=== PATIENT | male | born 1955 | race Caucasian/White ===

== ENCOUNTER 2017-04-28 22:45 | Inpatient (IN) | payer OTHER ==
[2017-04-28] MEDS ORDERED: SODIUM CHLORIDE 0.9% 1,000 ML IV ONE (23:40)
[2017-04-28] MEDS ORDERED: RX INFO: IV CONTRAST WAS GIVEN 1 EACH MISC MISCELLANE PRN (23:49)
--- NOTE | 2017-04-28 23:53 | ED ---
Fall HPI - General Chief Complaint: Fall Stated Complaint: KRISHNA Time Seen by Provider: 04/28/17 23:11 Source: patient, EMS Mode of arrival: EMS - History of Present Illness Initial Comments: This patient is a 61-year-old man who presents to be evaluated for pain along the right costal margin. The patient states that it started after he had a fall at home on Thursday night. He states that he fell from his porch probably 3 or 4 feet. He states that he landed on his right chest wall. The pain was not tremendous at that time but then worsened over the interval. He has been taking naproxen without much relief. He rates the pain as constant, moderate, but severe with palpation or with movement. He states that he is becoming short of breath now and he also has a bit of a cough with some yellow sputum. Patient denies hemoptysis. MD Complaint: fall -: days(s) Fall From: other When Fall Occurred: # days [employer] [address] Fall Occurred: home Loss of Consciousness: none Prolonged Down Time?: no Symptoms Prior to Fall: none Location: chest, abdomen - Related Data Home Medications Medication Instructions Recorded Confirmed ALPRAZolam [Xanax] 1 mg PO BID 05/13/16 04/29/17 Fluticasone/Salmeterol [Advair 1 puff INHALATION RT-BID 05/13/16 04/29/17 500-50 Diskus] Methadone [Dolophine] 30 mg PO Q12HR 05/13/16 04/29/17 Tiotropium [place] [Spiriva] 1 cap INHALATION RT-DAILY 05/13/16 04/29/17 Previous Rx's Medication Instructions Recorded Albuterol Inhaler [Ventolin Hfa 1 - 2 puff INHALATION Q6HR PRN #1 05/18/16 Inhaler] inhaler Allergies Allergy/AdvReac Type Severity Reaction Status Date / Time No Known Allergies Allergy Verified 04/28/17 23:12 Review of Systems ROS Statement: Those systems with pertinent positive or pertinent negative responses have been documented in the HPI. ROS Other: All systems not noted in ROS Statement are negative. Constitutional: Denies: fever, chills Respiratory: Reports: as per HPI, cough, dyspnea, wheezes. Denies: hemoptysis, stridor Cardiovascular: Reports: as per HPI, chest pain. Denies: palpitations, orthopnea, edema, syncope Gastrointestinal: Reports: as per HPI, abdominal pain. Denies: nausea, vomiting , diarrhea, constipation Genitourinary: Denies: dysuria, hematuria Musculoskeletal: Denies: back pain Skin: Denies: rash Neurological: Denies: headache, weakness, numbness Hematological/Lymphatic: Denies: easy bleeding Past Medical History Past Medical History: Asthma, COPD, Liver Disease Additional Past Medical History / Comment(s): pain disorder, cirrhosis, History of Any Multi-Drug Resistant Organisms: None Reported Past Surgical History: Orthopedic Surgery Additional Past Surgical History / Comment(s): neck fracture Past Anesthesia/Blood Transfusion Reactions: No Reported Reaction Past Psychological History: Anxiety Smoking Status: Former smoker Past Alcohol Use History: Daily Past Drug Use History: None Reported - Past Family History Father Family Medical History: Congestive Heart Failure (CHF), Hypertension Mother Family Medical History: Cancer, Hypertension Additional Family Medical History / Comment(s): Melanoma on nose. General Exam Limitations: no limitations General appearance: alert, in distress Head exam: Present: atraumatic, normocephalic Eye exam: Present: normal appearance. Absent: scleral icterus, conjunctival injection ENT exam: Present: normal oropharynx Neck exam: Present: normal inspection, full ROM Respiratory exam: Present: respiratory distress, rhonchi, chest wall tenderness (Right-sided chest tenderness in the mid and anterior axillary lines over the lower ribs. No obvious deformity.). Absent: wheezes, rales, stridor, accessory muscle use, decreased breath sounds, prolonged expiratory Cardiovascular Exam: Present: normal rhythm, tachycardia, normal heart sounds. Absent: systolic murmur, diastolic murmur, rubs, gallop GI/Abdominal exam: Present: soft, tenderness (There is right upper quadrant tenderness), guarding. Absent: distended, rebound, rigid, mass, pulsatile mass , hernia Extremities exam: Present: normal inspection, normal capillary refill. Absent: pedal edema, calf tenderness Back exam: Present: normal inspection. Absent: CVA tenderness (R), CVA tenderness (L), paraspinal tenderness, vertebral tenderness Neurological exam: Present: alert Skin exam: Present: warm, dry, intact, normal color. Absent: rash, cyanosis, diaphoretic, erythema, petechiae, pallor, mottled Course Vital Signs 04/28/17 04/29/17 04/29/17 22:47 00:00 00:33 Temperature 99.2 F 99.0 F Pulse Rate 115 H 108 H 99 Pulse Rate [ Pulse Oximetery ] Respiratory 18 22 Rate Blood Pressure 161/84 117/75 Blood Pressure [Left Arm] O2 Sat by Pulse 83 L 92 L Oximetry 04/29/17 04/29/17 04/29/17 00:48 00:51 01:26 Temperature Pulse Rate 98 99 100 Pulse Rate [ Pulse Oximetery ] Respiratory 20 20 Rate Blood Pressure 97/55 98/57 Blood Pressure [Left Arm] O2 Sat by Pulse 97 95 Oximetry 04/29/17 04/29/17 04/29/17 01:54 02:44 03:59 Temperature Pulse Rate 104 H 102 H 98 Pulse Rate [ Pulse Oximetery ] Respiratory 20 20 18 Rate Blood Pressure 135/68 103/57 114/70 Blood Pressure [Left Arm] O2 Sat by Pulse 96 95 96 Oximetry 04/29/17 04/29/17 04/29/17 05:23 05:32 05:42 Temperature 97.5 F L Pulse Rate 95 95 Pulse Rate [ 100 Pulse Oximetery ] Respiratory 18 16 18 Rate Blood Pressure 121/78 124/77 Blood Pressure 130/91 [Left Arm] O2 Sat by Pulse 97 93 L 96 Oximetry Medical Decision Making - Medical Decision Making This patient is 61-year-old man with history of COPD who presents over 24 hours after he had a fall and appears to have sustained multiple rib fractures with a small pneumothorax. Given the traumatic mechanism, patient initially admitted to surgery on-call and also to have pulmonology consultation for pneumothorax. - Lab Data Result diagrams: 04/28/17 23:25 04/28/17 23:25 Lab Results 04/28/17 04/28/17 04/28/17 Range/Units 23:25 23:25 23:25 WBC 6.8 (3.8-10.6) k/uL RBC 4.57 (4.30-5.90) m/uL Hgb 17.1 (13.0-17.5) gm/dL Hct 50.4 (39.0-53.0) % MCV 110.1 H (80.0-100.0) fL MCH 37.5 H (25.0-35.0) pg MCHC 34.0 (31.0-37.0) g/dL RDW 16.7 H (11.5-15.5) % Plt Count 177 (150-450) k/uL Neutrophils % 39 % Lymphocytes % 42 % Monocytes % 9 % Eosinophils % 4 % Basophils % 1 % Neutrophils # 2.7 (1.3-7.7) k/uL Lymphocytes # 2.9 (1.0-4.8) k/uL Monocytes # 0.6 (0-1.0) k/uL Eosinophils # 0.3 (0-0.7) k/uL Basophils # 0.1 (0-0.2) k/uL Manual Slide Review Performed Anisocytosis Slight Macrocytosis Marked PT 11.2 (9.0-12.0) sec INR 1.1 (<1.2) APTT 23.5 (22.0-30.0) sec Sodium 139 (137-145) mmol/L Potassium 4.3 (3.5-5.1) mmol/L Chloride 103 (98-107) mmol/L Carbon Dioxide 26 (22-30) mmol/L Anion Gap 10 mmol/L BUN 10 (9-20) mg/dL Creatinine 1.00 (0.66-1.25) mg/dL Est GFR (MDRD) Af Amer >60 (>60 ml/min/1.73 sqM) Est GFR (MDRD) Non-Af >60 (>60 ml/min/1.73 sqM) Glucose 105 H (74-99) mg/dL Lactic Ac Sepsis Rflx Plasma Lactic Acid Ryan (0.7-2.0) mmol/L Calcium 9.3 (8.4-10.2) mg/dL Total Bilirubin 0.7 (0.2-1.3) mg/dL AST 67 H (17-59) U/L ALT 77 H (21-72) U/L Alkaline Phosphatase 56 (38-126) U/L Total Protein 6.6 (6.3-8.2) g/dL Albumin 3.7 (3.5-5.0) g/dL Urine Color Urine Appearance (Clear) Urine pH (5.0-8.0) Ur Specific [place] (1.001-1.035) Urine Protein (Negative) Urine Glucose (UA) (Negative) Urine Ketones (Negative) Urine Blood (Negative) Urine Nitrite (Negative) Urine Bilirubin (Negative) Urine Urobilinogen (<2.0) mg/dL Ur Leukocyte Esterase (Negative) Serum Alcohol mg/dL 04/28/17 04/29/17 04/29/17 Range/Units 23:52 00:05 00:27 WBC (3.8-10.6) k/uL RBC (4.30-5.90) m/uL Hgb (13.0-17.5) gm/dL Hct (39.0-53.0) % MCV (80.0-100.0) fL MCH (25.0-35.0) pg MCHC (31.0-37.0) g/dL RDW (11.5-15.5) % Plt Count (150-450) k/uL Neutrophils % % Lymphocytes % % Monocytes % % Eosinophils % % Basophils % % Neutrophils # (1.3-7.7) k/uL Lymphocytes # (1.0-4.8) k/uL Monocytes # (0-1.0) k/uL Eosinophils # (0-0.7) k/uL Basophils # (0-0.2) k/uL Manual Slide Review Anisocytosis Macrocytosis PT (9.0-12.0) sec INR (<1.2) APTT (22.0-30.0) sec Sodium (137-145) mmol/L Potassium (3.5-5.1) mmol/L Chloride (98-107) mmol/L Carbon Dioxide (22-30) mmol/L Anion Gap mmol/L BUN (9-20) mg/dL Creatinine (0.66-1.25) mg/dL Est GFR (MDRD) Af Amer (>60 ml/min/1.73 sqM) Est GFR (MDRD) Non-Af (>60 ml/min/1.73 sqM) Glucose (74-99) mg/dL Lactic Ac Sepsis Rflx Y Plasma Lactic Acid Ryan 2.1 H* (0.7-2.0) mmol/L Calcium (8.4-10.2) mg/dL Total Bilirubin (0.2-1.3) mg/dL AST (17-59) U/L ALT (21-72) U/L Alkaline Phosphatase (38-126) U/L Total Protein (6.3-8.2) g/dL Albumin (3.5-5.0) g/dL Urine Color Urine Appearance (Clear) Urine pH (5.0-8.0) Ur Specific [place] (1.001-1.035) Urine Protein (Negative) Urine Glucose (UA) (Negative) Urine Ketones (Negative) Urine Blood (Negative) Urine Nitrite (Negative) Urine Bilirubin (Negative) Urine Urobilinogen (<2.0) mg/dL Ur Leukocyte Esterase (Negative) Serum Alcohol <10 mg/dL 04/29/17 04/29/17 Range/Units 02:40 04:25 WBC (3.8-10.6) k/uL RBC (4.30-5.90) m/uL Hgb (13.0-17.5) gm/dL Hct (39.0-53.0) % MCV (80.0-100.0) fL MCH (25.0-35.0) pg MCHC (31.0-37.0) g/dL RDW (11.5-15.5) % Plt Count (150-450) k/uL Neutrophils % % Lymphocytes % % Monocytes % % Eosinophils % % Basophils % % Neutrophils # (1.3-7.7) k/uL Lymphocytes # (1.0-4.8) k/uL Monocytes # (0-1.0) k/uL Eosinophils # (0-0.7) k/uL Basophils # (0-0.2) k/uL Manual Slide Review Anisocytosis Macrocytosis PT (9.0-12.0) sec INR (<1.2) APTT (22.0-30.0) sec Sodium (137-145) mmol/L Potassium (3.5-5.1) mmol/L Chloride (98-107) mmol/L Carbon Dioxide (22-30) mmol/L Anion Gap mmol/L BUN (9-20) mg/dL Creatinine (0.66-1.25) mg/dL Est GFR (MDRD) Af Amer (>60 ml/min/1.73 sqM) Est GFR (MDRD) Non-Af (>60 ml/min/1.73 sqM) Glucose (74-99) mg/dL Lactic Ac Sepsis Rflx Plasma Lactic Acid Ryan 2.1 H* (0.7-2.0) mmol/L Calcium (8.4-10.2) mg/dL Total Bilirubin (0.2-1.3) mg/dL AST (17-59) U/L ALT (21-72) U/L Alkaline Phosphatase (38-126) U/L Total Protein (6.3-8.2) g/dL Albumin (3.5-5.0) g/dL Urine Color Yellow Urine Appearance Clear (Clear) Urine pH 6.0 (5.0-8.0) Ur Specific [place] 1.021 (1.001-1.035) Urine Protein Trace H (Negative) Urine Glucose (UA) Negative (Negative) Urine Ketones Negative (Negative) Urine Blood Negative (Negative) Urine Nitrite Negative (Negative) Urine Bilirubin Negative (Negative) Urine Urobilinogen <2.0 (<2.0) mg/dL Ur Leukocyte Esterase Negative (Negative) Serum Alcohol mg/dL - EKG Data -: EKG Interpreted by Me EKG shows normal: sinus rhythm (With occasional PVCs), axis (Normal), intervals (Normal), QRS complexes (Normal), ST-T waves (There are lateral T inversions, leads 1 and aVL) Rate: tachycardia (Rate approximately 108 bpm) Disposition Clinical Impression: Fall, Ribs, multiple fractures, Pneumothorax Disposition: ADMITTED IP TO THIS [facility] Condition: Fair
[2017-04-29] MEDS ORDERED: IPRATROPIUM-ALBUTEROL 3 ML NEB INHALATION STA (00:08)
[2017-04-29] MEDS ORDERED: ALBUTEROL NEBULIZED 2.5 MG/3 ML INHALATION STA (00:08)
[2017-04-29 00:13] LABS: Anisocytosis Slight; Aty Lym Flag Slight; Basophils # (A) 0.1 k/uL (0-0.2); Basophils % (A) 1 %; CH 36.9; CHCM 33.8; Eosinophils # (A) 0.3 k/uL (0-0.7); Eosinophils % (A) 4 %; HCT 50.4 % (39.0-53.0); HDW 2.63; HGB 17.1 gm/dL (13.0-17.5); INR 1.1 (<1.2); Luc # (Auto) 0.34; Luc % (Auto) 5; Lymphocytes # (A) 2.9 k/uL (1.0-4.8); Lymphocytes % (A) 42 %; MCH 37.5 pg (25.0-35.0); MCV 110.1 fL (80.0-100.0); Macrocytosis Marked; Mean Platelet Volume 7.3; Monocytes # (A) 0.6 k/uL (0-1.0); Monocytes % (A) 9 %; Neutrophils # (A) 2.7 k/uL (1.3-7.7); Neutrophils % (A) 39 %; Partial Thromboplastin Time 23.5 sec (22.0-30.0); Prothrombin Time 11.2 sec (9.0-12.0); RBC 4.57 m/uL (4.30-5.90); RDW 16.7 % (11.5-15.5); WBC 6.8 k/uL (3.8-10.6); WBC (Perox) 6.26
[2017-04-29 00:20] LABS: ALT 77 U/L (21-72); AST 67 U/L (17-59); Alkaline Phosphatase 56 U/L (38-126); Anion Gap 10 mmol/L; Blood Urea Nitrogen 10 mg/dL (9-20); Calcium 9.3 mg/dL (8.4-10.2); Carbon Dioxide 26 mmol/L (22-30); Chloride 103 mmol/L (98-107); Glucose 105 mg/dL (74-99); Non-African American GFR(MDRD) >60 (>60 ml/min/1.73 sqM); Potassium 4.3 mmol/L (3.5-5.1); Sodium 139 mmol/L (137-145); Total Bilirubin 0.7 mg/dL (0.2-1.3); Total Protein 6.6 g/dL (6.3-8.2)
[2017-04-29] MEDS ORDERED: SODIUM CHLORIDE 0.9% 500 ML IV STA (00:29)
[2017-04-29 00:50] LABS: Manual Review Performed
[2017-04-29 02:52] LABS: Appearance,Urine Clear (Clear); Bilirubin,Urine Negative (Negative); Glucose,Urine (UA) Negative (Negative); Ketones,Urine Negative (Negative); Leukocyte Esterase,Urine Negative (Negative); Nitrite,Urine Negative (Negative); Protein,Urine Trace (Negative); Specific Gravity,Urine 1.021 (1.001-1.035); UA Billing (MACRO vs. MICRO) CHEM; Urobilinogen,Urine <2.0 mg/dL (<2.0)
--- NOTE | 2017-04-29 02:56 | CT ---
EXAM: CT Chest With Intravenous Contrast CLINICAL HISTORY: Reason: trauma TECHNIQUE: Axial computed tomography images of the chest with intravenous contrast. CTDI is 13.4 mGy and DLP is 913.40 mGy-cm. This CT exam was performed using one or more of the following dose reduction techniques: automated exposure control, adjustment of the mA and/or kV according to patient size, and/or use of iterative reconstruction technique. COMPARISON: Chest x-ray 05/13/2016. FINDINGS: Lungs: Airspace opacities in the dependent lung bases consistent with atelectasis. Possible superimposed right basilar pulmonary contusion. Pleural space: Small right pneumothorax. Heart: Mild/moderate atherosclerotic vascular calcification seen. No cardiomegaly. No significant pericardial effusion. Bones/joints: Acute nondisplaced fractures right posterior seventh through ninth ribs. Old healed fractures right posterior 10th and 11th ribs. Soft tissues: Unremarkable. Vasculature: Unremarkable. No thoracic aortic aneurysm. Lymph nodes: Mildly prominent mediastinal and right hilar lymph nodes, of unknown significance, although likely reactive.. IMPRESSION: 1. Small right pneumothorax. 2. Acute nondisplaced fractures right posterior seventh through ninth ribs. Old healed fractures right posterior 10th and 11th ribs. 3. Airspace opacities in the dependent lung bases consistent with atelectasis. Possible superimposed right basilar pulmonary contusion. EXAM: CT Abdomen and Pelvis With Intravenous Contrast CLINICAL HISTORY: Reason: trauma TECHNIQUE: Axial computed tomography images of the abdomen and pelvis with intravenous contrast. CTDI is 14.4 mGy and DLP is 430.70 mGy-cm. This CT exam was performed using one or more of the following dose reduction techniques: automated exposure control, adjustment of the mA and/or kV according to patient size, and/or use of iterative reconstruction technique. COMPARISON: None. FINDINGS: Lower thorax: Abnormalities in the lower thorax. See chest CT report. ABDOMEN: Liver: Hepatic steatosis suggested.. No mass. Gallbladder and bile ducts: Unremarkable. No calcified stones. No ductal dilation. Pancreas: Unremarkable. No mass. No ductal dilation. Spleen: Unremarkable. No splenomegaly. Adrenals: Unremarkable. No mass. Kidneys and ureters: Symmetric mild perinephric fat stranding, likely chronic. No solid mass. No hydronephrosis. Stomach and bowel: Unremarkable. No obstruction. No mucosal thickening. Appendix: No findings to suggest acute appendicitis. PELVIS: Bladder: Unremarkable. No mass. Reproductive: Unremarkable as visualized. ABDOMEN and PELVIS: Intraperitoneal space: Unremarkable. No free air. No significant fluid collection. Bones/joints: AVN both femoral heads without subchondral collapse or significant DJD in the hips. Degenerative changes in the spine. No acute fractures. No dislocation. Soft tissues: Unremarkable. Vasculature: Mild/moderate atherosclerotic vascular calcifications involving the intra-abdominal aorta and its proximal branches. No abdominal aortic aneurysm. Lymph nodes: Mildly prominent preaortic, retrocaval, peripancreatic, and ceasar hepatic lymph nodes, measuring up to 1.6 cm in the portal caval region, of unknown significance. IMPRESSION: No acute findings. Other findings, as above. [employer] 04/29/17 03:11 Call Doctor Regarding Pneumothorax, called Dr. Soto on 04/29 03:10 (-04:00)
[2017-04-29] MEDS ORDERED: SODIUM CHLORIDE 0.9% 2,000 ML IV ONE (04:13)
[2017-04-29] MEDS ORDERED: ONDANSETRON 4 MG/2 ML VIAL IVP PRN (04:37)
[2017-04-29] MEDS ORDERED: ACETAMINOPHEN TAB 325 MG TAB PO PRN (04:37)
[2017-04-29] MEDS: MORPHINE SULFATE 4 MG/ML SYRINGE IV PRN ×3 (06:23→16:08)
[2017-04-29] MEDS: ALBUTEROL NEBULIZED 2.5 MG/3 ML INHALATION SCH ×3 (07:51→20:42)
[2017-04-29] MEDS: TIOTROPIUM 18 MCG/PUFF INHALER INHALATION SCH (07:52)
[2017-04-29] MEDS: ALPRAZolam 0.5 MG TAB PO SCH ×2 (08:05→22:17)
[2017-04-29] MEDS: METHADONE 10 MG TAB PO SCH ×2 (08:05→22:17)
[2017-04-29] MEDS: FAMOTIDINE 20 MG TAB PO SCH ×2 (08:05→22:17)
[2017-04-29] MEDS ORDERED: predniSONE 10 MG TAB PO SCH (09:00)
[2017-04-29] MEDS: SYMBICORT 160-4.5 MCG INHALER INHALATION SCH ×2 (11:42→20:42)
--- NOTE | 2017-04-29 11:51 | P.CNPUL ---
History of Present Illness Consult date: 04/29/17 Reason for consult: pneumothorax Chief complaint: Shortness of breath, pain History of present illness: This is a 61-year-old male who is being seen, evaluated and examined. This patient is well-known to our services. The patient came into the emergency room status post fall on 04/26/2017. Patient states he fell from his porch which was approximately 3-4 feet of a drop. He stated he was intoxicated with alcohol at the time. Patient stated that he landed on his right-sided chest. Patient denies and loss of consciousness or hitting his head. Patient initially did not have much pain but over the last 2 days the pain has increasingly gotten worse as well as he develop shortness of breath. The patient was taking naproxen at home without relief. Patient states that the pain is consistent moderate and with palpation it becomes more severe. Patient has developed increasing shortness of breath over the last few days as well as well as a productive cough with yellow sputum. She denies any hemoptysis. Patient is known to have history of COPD, patient states he does not use oxygen at home at this time however he has used it in the past.. Patient did undergo a CT of the chest abdomen and pelvis which revealed a small right pneumothorax, acute nondisplaced fractures right posterior seventh through ninth ribs. Some old healing fractures right posterior 10th rib 11th ribs, airspace opacity in the dependent lung bases consistent with atelectasis, possible superimposed right basilar pulmonary contusion. Upon examination the patient's resting up in bed on 2 L of supplemental oxygen. He states he continues to have rib pain with coughing. He is unable to bring up secretions due to pain. Patient states his current medications are effective for pain relief. He denies any fevers, chills , or hemoptysis, nausea, vomiting or diarrhea. Review of Systems 14 point review of systems was completed and is negative unless noted above in the HPI. Past Medical History Past Medical History: Asthma, COPD, Liver Disease Additional Past Medical History / Comment(s): pain disorder, cirrhosis, History of Any Multi-Drug Resistant Organisms: None Reported Past Surgical History: Orthopedic Surgery Additional Past Surgical History / Comment(s): neck fracture Past Anesthesia/Blood Transfusion Reactions: No Reported Reaction Past Psychological History: Anxiety Smoking Status: Former smoker Past Alcohol Use History: Daily Past Drug Use History: None Reported - Past Family History Father Family Medical History: Congestive Heart Failure (CHF), Hypertension Mother Family Medical History: Cancer, Hypertension Additional Family Medical History / Comment(s): Melanoma on nose. Medications and Allergies Home Medications Medication Instructions Recorded Confirmed Type ALPRAZolam [Xanax] 1 mg PO BID 05/13/16 04/29/17 History Methadone [Dolophine] 30 mg PO Q12HR 05/13/16 04/29/17 History Tiotropium [place] [Spiriva] 1 cap INHALATION RT-DAILY 05/13/16 04/29/17 History Albuterol Inhaler [Ventolin Hfa 1 - 2 puff INHALATION RT-Q6H PRN 04/29/17 History Inhaler] Ipratropium-Albuterol Nebulize 3 ml INHALATION RT-BID 04/29/17 04/29/17 History [Duoneb 0.5 mg-3 mg/3 ml Soln] Allergies Allergy/AdvReac Type Severity Reaction Status Date / Time No Known Allergies Allergy Verified 04/29/17 08:34 Physical Exam Vitals: Vital Signs Temp Pulse Pulse Resp BP BP Pulse Ox 04/29/17 08:07 96 04/29/17 08:00 98.8 F 90 21 150/90 94 L 04/29/17 07:52 92 04/29/17 05:42 97.5 F L 95 18 124/77 96 04/29/17 05:32 100 16 130/91 93 L 04/29/17 05:23 95 18 121/78 97 04/29/17 03:59 98 18 114/70 96 04/29/17 02:44 102 H 20 103/57 95 04/29/17 01:54 104 H 20 135/68 96 04/29/17 01:26 100 20 98/57 95 04/29/17 00:51 99 04/29/17 00:48 98 20 97/55 97 04/29/17 00:33 99 04/29/17 00:00 99.0 F 108 H 22 117/75 92 L 04/28/17 22:47 99.2 F 115 H 18 161/84 83 L Intake and Output 04/28/17 04/29/17 04/29/17 22:59 06:59 14:59 Other: Weight 88.451 kg 94.7 kg GENERAL EXAM: Alert, active, comfortable in no apparent distress. HEAD: Normocephalic. EYES: Normal reaction of pupils, equal size. NOSE: Clear with pink turbinates. THROAT: No erythema or exudates. NECK: No masses, no JVD. CHEST: No chest wall deformity. LUNGS: Patient noted to have scattered rhonchi and faint end expiratory wheezes. Patient also known to have chest wall tenderness on the right side. CVS: S1 and S2 normal with no audible mumurs, regular rhythm. ABDOMEN: No hepatosplenomegaly, normal bowel sounds, no guarding or rigidity. EXTREMITIES: No edema noted, pedal pulses palpable. SKIN: No rashes CENTRAL NERVOUS SYSTEM: No focal deficits, tone is normal in all 4 extremities. Results - Laboratory Findings CBC and BMP: 04/28/17 23:25 04/28/17 23:25 PT/INR, D-dimer PT 11.2 sec (9.0-12.0) 04/28/17 23:25 INR 1.1 (<1.2) 04/28/17 23:25 Abnormal lab findings: Abnormal Labs 04/28/17 04/28/17 04/29/17 23:25 23:25 00:05 MCV 110.1 H MCH 37.5 H RDW 16.7 H Glucose 105 H Plasma Lactic Acid Ryan 2.1 H* AST 67 H ALT 77 H Urine Protein 04/29/17 04/29/17 02:40 04:25 MCV MCH RDW Glucose Plasma Lactic Acid Ryan 2.1 H* AST ALT Urine Protein Trace H - Diagnostic Findings CT scan - chest: report reviewed, image reviewed Assessment and Plan Plan: Assessment Status post fall Small right sided pneumothorax Multiple right-sided rib fractures Acute on chronic hypoxic respiratory failure COPD Chronic persistent moderate asthma with a component of ALLERGIC asthma Nicotine dependence Plan Medications have been reviewed and will be continued as ordered. We will continue to monitor the pneumothorax. Daily chest xrays. Initiate and encourage incentive spirometer. Continue with pain management. Continue with pulmonary hygiene, coughing and deep breathing exercises, and supportive care. Supplemental oxygen to maintain oxygen saturations of 92% or better. Continue nebulizer treatments. GI and DVT prophylaxis. We will continue to monitor labs/ results and adjust treatment as necessary. Further recommendations pending. I performed an examination of the patient and discussed their management with the nurse practitioner. I have reviewed the nurse practitioner's note and agree with the documented findings and plan of care.
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
--- NOTE | 2017-04-29 17:41 | XR ---
EXAMINATION TYPE: XR chest 2V DATE OF EXAM: 04/29/2017 COMPARISON: 05/13/2016 HISTORY: Follow-up pneumothorax TECHNIQUE: Frontal and lateral views of the chest are obtained. FINDINGS: There is a poor respiration and linear density at the lung bases. I see no pneumothorax. T rachea is midline. Heart size is normal. There is no heart failure. IMPRESSION: There is bilateral basilar atelectasis that is worse than last exam. No sign of pneumoth orax.
[2017-04-30] MEDS: ALBUTEROL NEBULIZED 2.5 MG/3 ML INHALATION SCH ×5 (02:16→19:30)
[2017-04-30 05:51] LABS: Anisocytosis Slight; Basophils # (A) 0.1 k/uL (0-0.2); Basophils % (A) 1 %; CH 36.7; CHCM 31.6; Eosinophils # (A) 0.2 k/uL (0-0.7); Eosinophils % (A) 2 %; HCT 50.4 % (39.0-53.0); HDW 2.71; HGB 16.2 gm/dL (13.0-17.5); Luc # (Auto) 0.28; Luc % (Auto) 3; Lymphocytes # (A) 1.3 k/uL (1.0-4.8); Lymphocytes % (A) 14 %; MCH 37.6 pg (25.0-35.0); MCHC 32.1 g/dL (31.0-37.0); Macrocytosis Marked; Mean Platelet Volume 7.4; Monocytes # (A) 0.7 k/uL (0-1.0); Monocytes % (A) 8 %; Neutrophils # (A) 6.5 k/uL (1.3-7.7); Neutrophils % (A) 72 %; RDW 16.9 % (11.5-15.5); WBC 9.1 k/uL (3.8-10.6)
[2017-04-30 05:56] LABS: Glucose,Whole Blood 118 mg/dL (75-99)
[2017-04-30 05:56] LABS: ABG Base Excess -0.8 mmol/L; ABG HCO3 26 mmol/L (21-25); ABG PCO2 71 mmHg (35-45); ABG PO2 97 mmHg (83-108); ABG TCO2 28 mmol/L (19-24)
--- NOTE | 2017-04-30 06:01 | XR ---
EXAM: XR Chest, 1 View CLINICAL HISTORY: Reason: fluid TECHNIQUE: Frontal view of the chest. COMPARISON: Chest x-ray dated 05/13/2016 FINDINGS: Lungs: Patchy airspace opacities seen throughout both lungs, left greater than right, which may represent an inflammatory or infectious process versus pulmonary edema. Pleural space: Unremarkable. No pneumothorax. Heart: Mild enlargement of the cardiomediastinal silhouette. Mediastinum: See above. Bones/joints: Unremarkable. IMPRESSION: Patchy airspace opacities seen throughout both lungs, left greater than right which may represent an inflammatory or infectious process versus pulmonary edema.
[2017-04-30 06:11] LABS: MCV 117.2 fL (80.0-100.0)
[2017-04-30 06:20] LABS: Glucose,Whole Blood 118 mg/dL (75-99)
[2017-04-30 06:36] LABS: ALT 81 U/L (21-72); AST 60 U/L (17-59); Alkaline Phosphatase 65 U/L (38-126); Anion Gap 12 mmol/L; Blood Urea Nitrogen 10 mg/dL (9-20); Calcium 8.5 mg/dL (8.4-10.2); Carbon Dioxide 22 mmol/L (22-30); Chloride 101 mmol/L (98-107); Glucose 128 mg/dL (74-99); Magnesium 1.7 mg/dL (1.6-2.3); Non-African American GFR(MDRD) >60 (>60 ml/min/1.73 sqM); Phosphorous 6.5 mg/dL (2.5-4.5); Potassium 5.3 mmol/L (3.5-5.1); Sodium 135 mmol/L (137-145); Total Bilirubin 0.7 mg/dL (0.2-1.3); Total Protein 7.1 g/dL (6.3-8.2)
[2017-04-30] MEDS ORDERED: Magnesium Replacement Protocol 1 EACH MISC MISCELLANE PRN (07:18)
[2017-04-30] MEDS: SYMBICORT 160-4.5 MCG INHALER INHALATION SCH ×2 (07:59→19:31)
[2017-04-30] MEDS: TIOTROPIUM 18 MCG/PUFF INHALER INHALATION SCH (08:00)
[2017-04-30] MEDS: ALPRAZolam 0.5 MG TAB PO SCH (08:19)
[2017-04-30 08:21] LABS: ABG PH 7.17 (7.35-7.45)
--- NOTE | 2017-04-30 08:21 | P.PN ---
Subjective Patient earlier this morning was evidently chewing tobacco and apparently aspirated. Since that episode he has been very lethargic and with decreased respiratory effort. He was therefore transferred to the intensive care unit. A chest x-ray was performed which revealed patchy airspace opacities seen throughout both lungs left greater than the right which may represent an inflammatory or infectious process versus pulmonary edema. No pneumothorax was reported. The patient at this time is hemodynamically stable however with very shallow respirations. He is lethargic and confused. Of concern is the fact that the patient has a question of loss of consciousness at the time of his fall and we will therefore obtain a head CT to rule out an intracranial cause for his lethargy. However at this time it is felt that this is most likely related to a possible aspiration event. Patient lives alone with his dog, he has no family or friends at this time which have been identified to notify. Objective - Vital Signs Vital signs: Vital Signs Temp 99.0 F 04/30/17 04:00 Pulse 98 04/30/17 07:57 Resp 7 L 04/30/17 07:00 BP 114/74 04/30/17 07:00 Pulse Ox 92 L 04/30/17 07:00 Intake & Output 04/29/17 04/30/17 04/30/17 18:59 06:59 18:59 Intake Total 200 Output Total 200 750 Balance 0 -750 Intake: Oral 200 Output: Urine 200 750 Other: Voiding Method Indwelling Catheter # Voids 1 100 - Constitutional General appearance: Present: obese - Respiratory Details: Decreased breath sounds bilaterally Octavio I bilaterally Shallow respirations - Cardiovascular Rhythm: regular Heart sounds: normal: S1, S2 - Gastrointestinal Gastrointestinal Comment(s): No guarding or rebound General gastrointestinal: Present: soft - Psychiatric Psychiatric Comment(s): lethargic - Labs CBC & Chem 7: 04/30/17 05:40 04/30/17 05:40 Labs: Abnormal Lab Results - Last 24 Hours (Table) 04/30/17 04/30/17 04/30/17 Range/Units 05:30 05:40 05:40 MCV 117.2 H D (80.0-100.0) fL MCH 37.6 H (25.0-35.0) pg RDW 16.9 H (11.5-15.5) % ABG pH (7.35-7.45) ABG pCO2 (35-45) mmHg ABG HCO3 (21-25) mmol/L ABG Total CO2 (19-24) mmol/L Sodium 135 L (137-145) mmol/L Potassium 5.3 H (3.5-5.1) mmol/L Glucose 128 H (74-99) mg/dL POC Glucose (mg/dL) 118 H (75-99) mg/dL Phosphorus 6.5 H (2.5-4.5) mg/dL AST 60 H (17-59) U/L ALT 81 H (21-72) U/L 04/30/17 04/30/17 Range/Units 05:51 06:18 MCV (80.0-100.0) fL MCH (25.0-35.0) pg RDW (11.5-15.5) % ABG pH 7.20 L* (7.35-7.45) ABG pCO2 71 H* (35-45) mmHg ABG HCO3 26 H (21-25) mmol/L ABG Total CO2 28 H (19-24) mmol/L Sodium (137-145) mmol/L Potassium (3.5-5.1) mmol/L Glucose (74-99) mg/dL POC Glucose (mg/dL) 118 H (75-99) mg/dL Phosphorus (2.5-4.5) mg/dL AST (17-59) U/L ALT (21-72) U/L Microbiology - Last 24 Hours (Table) 04/29/17 00:45 Blood Culture - Preliminary Blood No Growth after 24 hours Assessment and Plan Plan: Impression/plan: 1. Small right-sided pneumothorax related to multiple right-sided rib fractures from recent fall 2. Acute and chronic hypoxic respiratory failure 3. COPD 4. Asthma 5. Prior smoker 6. Increased lethargy possibly related to of aspiration Plan: 1. Daily chest x-rays 2. Pulmonary hygiene 3. Incentive spirometry 4. Nebulizer treatments 6. Pain medication as needed 7. GI and DVT prophylaxis 8. Obtain head CT without intracranial cause for lethargy 9. Awaiting repeat arterial blood gases 10. Patient may require intubation
[2017-04-30 08:22] LABS: ABG Base Excess 0.1 mmol/L; ABG HCO3 28 mmol/L (21-25); ABG PCO2 80 mmHg (35-45); ABG PO2 88 mmHg (83-108); ABG TCO2 30 mmol/L (19-24)
[2017-04-30] MEDS ORDERED: RX INFO: IV CONTRAST WAS GIVEN 1 EACH MISC MISCELLANE PRN (08:22)
[2017-04-30] MEDS: PIPERACILLIN-TAZOBACTAM 3.375 GM in DEXTROSE/WATER 1 50ML.BAG IVPB SCH ×3 (08:26→23:33)
[2017-04-30] MEDS: FAMOTIDINE 20 MG/2 ML VIAL IV SCH ×2 (09:22→20:30)
--- NOTE | 2017-04-30 10:31 | P.PN ---
Subjective 04/29/17-This is a 61-year-old male who is being seen, evaluated and examined. This patient is well-known to our services. The patient came into the emergency room status post fall on 04/26/2017. Patient states he fell from his porch which was approximately 3-4 feet of a drop. He stated he was intoxicated with alcohol at the time. Patient stated that he landed on his right-sided chest. Patient denies and loss of consciousness or hitting his head. Patient initially did not have much pain but over the last 2 days the pain has increasingly gotten worse as well as he develop shortness of breath. The patient was taking naproxen at home without relief. Patient states that the pain is consistent moderate and with palpation it becomes more severe. Patient has developed increasing shortness of breath over the last few days as well as well as a productive cough with yellow sputum. She denies any hemoptysis. Patient is known to have history of COPD, patient states he does not use oxygen at home at this time however he has used it in the past.. Patient did undergo a CT of the chest abdomen and pelvis which revealed a small right pneumothorax, acute nondisplaced fractures right posterior seventh through ninth ribs. Some old healing fractures right posterior 10th rib 11th ribs, airspace opacity in the dependent lung bases consistent with atelectasis, possible superimposed right basilar pulmonary contusion. Upon examination the patient's resting up in bed on 2 L of supplemental oxygen. He states he continues to have rib pain with coughing. He is unable to bring up secretions due to pain. Patient states his current medications are effective for pain relief. He denies any fevers, chills, or hemoptysis, nausea, vomiting or diarrhea. 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 Patient's SpO2 was 86% on 4 L of supplemental oxygen. The patient's CBG was 118 patient was difficult to arouse. An 18 was called and stat ABGs were drawn and came back critical with a pH of 7.20 pCO2 of 71 and HCO3 26 and pO2 97% the patient was ultimately transferred over to the intensive care unit and put on BiPAP. A stat chest x-ray did show patchy airspace disease seen throughout both lungs, left greater than the right. Of note the patient also was suctioned and chewing tobacco was obtained the patient also vomited up a moderate amount of emesis, mixed with food articles as well as chewing tobacco. Apparently overnight the patient was found to be using chewing tobacco and it was removed from the patient's room and he was educated on the policy stating he could not have chewing tobacco in the hospital. Upon examination the patient is currently on BiPAP and is lethargic, his oxygen saturations have improved with the BiPAP, he does open his eyes spontaneously. The patient does not have any emergency contacts or family members that we are aware of to update we will put on social work to obtain a legal guardian for the patient. Objective - Vital Signs Vital signs: Vital Signs Temp 99.0 F 04/30/17 04:00 Pulse 98 04/30/17 07:57 Resp 7 L 04/30/17 07:00 BP 114/74 04/30/17 07:00 Pulse Ox 92 L 04/30/17 07:00 Intake & Output 04/29/17 04/30/17 04/30/17 18:59 06:59 18:59 Intake Total 200 Output Total 200 750 Balance 0 -750 Intake: Oral 200 Output: Urine 200 750 Other: Voiding Method Indwelling Catheter # Voids 1 100 - Exam GENERAL EXAM: Lethargic, on BiPAP for respiratory distress HEAD: Normocephalic. EYES: Normal reaction of pupils, equal size. NOSE: Clear with pink turbinates. THROAT: No erythema or exudates. NECK: No masses, no JVD. CHEST: No chest wall deformity. LUNGS: Patient noted to have coarse breath sounds with scattered rhonchi and faint end expiratory wheezes. Patient also known to have chest wall tenderness on the right side. Currently on BiPAP CVS: S1 and S2 normal with no audible mumurs, regular rhythm. ABDOMEN: No hepatosplenomegaly, normal bowel sounds, no guarding or rigidity. EXTREMITIES: No edema noted, pedal pulses palpable. CENTRAL NERVOUS SYSTEM: No focal deficits, tone is normal in all 4 extremities. - Labs CBC & Chem 7: 05/01/17 05:30 05/01/17 05:30 Labs: Abnormal Lab Results - Last 24 Hours (Table) 04/30/17 04/30/17 04/30/17 Range/Units 05:30 05:40 05:40 MCV 117.2 H D (80.0-100.0) fL MCH 37.6 H (25.0-35.0) pg RDW 16.9 H (11.5-15.5) % ABG pH (7.35-7.45) ABG pCO2 (35-45) mmHg ABG HCO3 (21-25) mmol/L ABG Total CO2 (19-24) mmol/L ABG O2 Saturation (94-97) % Sodium 135 L (137-145) mmol/L Potassium 5.3 H (3.5-5.1) mmol/L Glucose 128 H (74-99) mg/dL POC Glucose (mg/dL) 118 H (75-99) mg/dL Phosphorus 6.5 H (2.5-4.5) mg/dL AST 60 H (17-59) U/L ALT 81 H (21-72) U/L 04/30/17 04/30/17 04/30/17 Range/Units 05:51 06:18 08:11 MCV (80.0-100.0) fL MCH (25.0-35.0) pg RDW (11.5-15.5) % ABG pH 7.20 L* 7.17 L* (7.35-7.45) ABG pCO2 71 H* 80 H* (35-45) mmHg ABG HCO3 26 H 28 H (21-25) mmol/L ABG Total CO2 28 H 30 H (19-24) mmol/L ABG O2 Saturation 93.0 L (94-97) % Sodium (137-145) mmol/L Potassium (3.5-5.1) mmol/L Glucose (74-99) mg/dL POC Glucose (mg/dL) 118 H (75-99) mg/dL Phosphorus (2.5-4.5) mg/dL AST (17-59) U/L ALT (21-72) U/L Microbiology - Last 24 Hours (Table) 04/29/17 00:45 Blood Culture - Preliminary Blood No Growth after 24 hours Assessment and Plan Plan: Assessment Left lower lobe aspiration pneumonia likely related to chewing tobacco Increased lethargy Status post fall Small right sided pneumothorax Multiple right-sided rib fractures Acute on chronic hypoxic respiratory failure COPD Chronic persistent moderate asthma with a component of ALLERGIC asthma Nicotine dependence Plan Medications have been reviewed and will be continued as ordered. Continue the patient on BiPAP and we'll do repeat ABGs after 4 hours. This patient may require intubation if no improvement after 4 hours of BiPAP. Discontinue the patient's methadone, morphine and Xanax. He has been placed on IV Solu-Medrol 40 every 8 hours. IV fluids normal saline at 100 MLS per hour. We will continue to monitor the pneumothorax which seems to be improved however newly developed left lower lobe aspiration pneumonia is present. Daily chest xrays. We will obtain a CT of the brain once patient's respiratory status is stable. Initiate and encourage incentive spirometer. Continue with pulmonary hygiene, coughing and deep breathing exercises, and supportive care. Supplemental oxygen to maintain oxygen saturations of 92% or better. Continue nebulizer treatments. GI and DVT prophylaxis. 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 We will continue to monitor labs/results and adjust treatment as necessary. Further recommendations pending. I performed an examination of the patient and discussed their management with the nurse practitioner. I have reviewed the nurse practitioner's note and agree with the documented findings and plan of care.
[2017-04-30] MEDS: SODIUM CHLORIDE 0.9% 1,000 ML IV SCH ×2 (10:45→20:30)
[2017-04-30] MEDS: MAGNESIUM SULFATE-D5W PMX 1 GM in DEXTROSE/WATER 1 100ML.BAG IVPB SCH ×2 (10:46→11:54)
[2017-04-30 12:04] LABS: Hemoglobin A1C 5.3 % (4.2-6.1)
[2017-04-30 12:07] LABS: Glucose,Whole Blood 99 mg/dL (75-99)
[2017-04-30] MEDS: INSULIN LISPRO (humaLOG) 300 UNIT/3 ML VIAL SQ SCH ×3 (12:08→20:30)
[2017-04-30 13:07] LABS: ABG PH 7.23 (7.35-7.45)
[2017-04-30 13:08] LABS: ABG HCO3 28 mmol/L (21-25); ABG PCO2 70 mmHg (35-45); ABG PO2 60 mmHg (83-108)
[2017-04-30 13:09] LABS: ABG Oxygen Saturation 84.5 % (94-97); ABG TCO2 30 mmol/L (19-24)
--- NOTE | 2017-04-30 14:50 | P.CONS ---
History of Present Illness - Reason for Consult Consult date: 04/29/17 Medical management - Chief Complaint Status post fall - History of Present Illness Mr. Craig is a 61-year-old male with a known history of asthma/COPD EtOH abuse, chronic pain and liver disease came to the ER status post fall on 04/26/2017. Patient was intoxicated with all call and had a mechanical fall. Patient landed on the right side of his chest. Denied any headache or head injury or loss of consciousness. Patient has been increasing short of breath and pain with deep breathing. Patient came to the hospital. Patient has been having chronic cough with whitish to yellow sputum. No increasing in quantity of sputum or frequency. Patient had CT of the chest abdomen and pelvis was done in the year showed a small right pneumothorax, acute nondisplaced fractures right posterior seventh through ninth ribs. Patient also had right posterior 10th rib and 11th rib. An air space opacity in the dependent lung bases consistent with atelectasis and superimposed possible right basilar pulmonary contusion.. Currently patient is complaining of pain with coughing and deep breathing. No fever or chills. No nausea vomiting or abdominal Pain. Medicine service has been consulted for medical management of his chronic medical problems and pain management Review of Systems Constitutional: Patient denies any fever or chills . No generalized weakness or weight loss. Abdomen: Patient denied nausea vomiting and diarrhea and abdominal pain. Cardiovascular: Patient denies any chest pain or short of breath no palpitations. Respiratory: patient is complaining of shortness of breath and pain in the right ribs with deep breathing and cough. Neurologic: Patient denied any numbness or tingling headache. Musculoskeletal: Patient denies any complaints of joint swelling or deformity. Right rib cage pain Skin: No skin lesions Psychiatric: Negative Endocrine: No heat or cold intolerance. No recent weight gain. Genitourinary: No dysuria or hematuria. All other 14 point ROS negative except the above Past Medical History Past Medical History: Asthma, COPD, Liver Disease Additional Past Medical History / Comment(s): pain disorder, cirrhosis, History of Any Multi-Drug Resistant Organisms: None Reported Past Surgical History: Orthopedic Surgery Additional Past Surgical History / Comment(s): neck fracture Past Anesthesia/Blood Transfusion Reactions: No Reported Reaction Past Psychological History: Anxiety Smoking Status: Former smoker Past Alcohol Use History: Daily Past Drug Use History: None Reported - Past Family History Father Family Medical History: Congestive Heart Failure (CHF), Hypertension Mother Family Medical History: Cancer, Hypertension Additional Family Medical History / Comment(s): Melanoma on nose. Medications and Allergies Home Medications Medication Instructions Recorded Confirmed Type ALPRAZolam [Xanax] 1 mg PO BID 05/13/16 04/29/17 History Methadone [Dolophine] 30 mg PO Q12HR 05/13/16 04/29/17 History Tiotropium [place] [Spiriva] 1 cap INHALATION RT-DAILY 05/13/16 04/29/17 History Albuterol Inhaler [Ventolin Hfa 1 - 2 puff INHALATION RT-Q6H PRN 04/29/17 History Inhaler] Ipratropium-Albuterol Nebulize 3 ml INHALATION RT-BID 04/29/17 04/29/17 History [Duoneb 0.5 mg-3 mg/3 ml Soln] Allergies Allergy/AdvReac Type Severity Reaction Status Date / Time No Known Allergies Allergy Verified 04/29/17 08:34 Physical Exam Vitals: Vital Signs Temp Pulse Pulse Resp BP BP Pulse Ox 04/29/17 15:44 98.0 F 92 20 146/91 96 04/29/17 15:43 95 21 04/29/17 12:00 98.2 F 95 21 142/88 95 04/29/17 08:07 96 04/29/17 08:00 98.8 F 90 21 150/90 94 L 04/29/17 07:52 92 04/29/17 05:42 97.5 F L 95 18 124/77 96 04/29/17 05:32 100 16 130/91 93 L 04/29/17 05:23 95 18 121/78 97 04/29/17 03:59 98 18 114/70 96 04/29/17 02:44 102 H 20 103/57 95 04/29/17 01:54 104 H 20 135/68 96 04/29/17 01:26 100 20 98/57 95 04/29/17 00:51 99 04/29/17 00:48 98 20 97/55 97 04/29/17 00:33 99 04/29/17 00:00 99.0 F 108 H 22 117/75 92 L 04/28/17 22:47 99.2 F 115 H 18 161/84 83 L Intake and Output 04/29/17 04/29/17 04/29/17 06:59 14:59 22:59 Intake Total 200 Output Total 200 Balance 0 Intake: Oral 200 Output: Urine 200 Other: # Voids 1 Weight 94.7 kg PHYSICAL EXAMINATION: Patient is lying in the bed comfortably, mild distress, awake alert and oriented.. HEENT: Normocephalic. Neck is supple. Pupils reactive. Nostrils clear. Oral cavity is moist. Ears reveal no drainage. Neck reveals no JVD, carotid bruits, or thyromegaly. CHEST EXAMINATION: Trachea is central. Decreased air entry right lower lobes mainly right side and minimal crackles heard no wheezing. Right lower rib cage tenderness and pain no crepitus heard.. CARDIAC: Normal S1, S2 with no gallops. No murmurs ABDOMEN: Soft. Bowel sounds normal. No organomegaly. No abdominal bruits. Extremities: reveal no edema. No clubbing or cyanosis Neurologically awake, alert, oriented x3 with well-coordinated movements. No focal deficits noted Skin: No rash or skin lesions. Psychiatric: Operative. Nonsuicidal Musculoskeletal: No joint swelling or deformity. Normal range of motion. Results CBC & Chem 7: 04/30/17 05:40 04/30/17 05:40 Labs: Abnormal Lab Results - Last 24 Hours (Table) 04/28/17 04/28/17 04/29/17 Range/Units 23:25 23:25 00:05 MCV 110.1 H (80.0-100.0) fL MCH 37.5 H (25.0-35.0) pg RDW 16.7 H (11.5-15.5) % Glucose 105 H (74-99) mg/dL Plasma Lactic Acid Ryan 2.1 H* (0.7-2.0) mmol/L AST 67 H (17-59) U/L ALT 77 H (21-72) U/L Urine Protein (Negative) 04/29/17 04/29/17 Range/Units 02:40 04:25 MCV (80.0-100.0) fL MCH (25.0-35.0) pg RDW (11.5-15.5) % Glucose (74-99) mg/dL Plasma Lactic Acid Ryan 2.1 H* (0.7-2.0) mmol/L AST (17-59) U/L ALT (21-72) U/L Urine Protein Trace H (Negative) Assessment and Plan Plan: 1 status post mechanical fall along with EtOH intoxication 2 small right-sided pneumothorax 3 right-sided posterior seventh through ninth rib fractures nondisplaced 4 acute on chronic hypoxic respiratory failure 5 COPD with mild exacerbation 6 history of moderately chronic persistent asthma with ALLERGY component 7 EtOH abuse and a good ejection 8 Elevated lactic acidosis due to volume depletion. 9 DVT prophylaxis 10 mildly elevated liver enzymes 11 macrocytosis PLAN: Patient will be continued on pain management along with breathing treatments and incentive spirometry. Continue with IV hydration. And follow-up lactic acid level. Monitor for EtOH withdrawal symptoms. No surgical intervention from general surgery. We will continue with the repeat chest x-ray and follow closely further recommendations based on the clinical course. Thank you for your consult. Time with Patient: Greater than 30
[2017-04-30] MEDS ORDERED: CALAMINE/ZINC OXIDE LOTION 177 ML BTL TOPICAL PRN (15:55)
[2017-04-30] MEDS: methylPREDNISolone SOD SUCCI 40 MG/ML 1 ML VIAL IV SCH ×2 (16:47→23:33)
[2017-04-30 17:09] LABS: Glucose,Whole Blood 99 mg/dL (75-99)
[2017-04-30 20:27] LABS: Glucose,Whole Blood 136 mg/dL (75-99)
[2017-04-30] MEDS: HEPARIN SODIUM,PORCINE 5,000 UNIT/ML 1 ML VIAL SQ SCH (20:30)
[2017-05-01] MEDS: ALBUTEROL NEBULIZED 2.5 MG/3 ML INHALATION SCH ×4 (03:00→20:20)
[2017-05-01 05:45] LABS: Anisocytosis Slight; Basophils % (A) 0 %; CHCM 31.7; Eosinophils # (A) 0.1 k/uL (0-0.7); Eosinophils % (A) 1 %; HCT 44.6 % (39.0-53.0); HDW 2.69; HGB 14.5 gm/dL (13.0-17.5); Luc # (Auto) 0.04; Luc % (Auto) 0; Lymphocytes # (A) 0.8 k/uL (1.0-4.8); Lymphocytes % (A) 7 %; MCH 38.3 pg (25.0-35.0); MCHC 32.6 g/dL (31.0-37.0); MCV 117.6 fL (80.0-100.0); Macrocytosis Marked; Mean Platelet Volume 8.1; Monocytes # (A) 0.2 k/uL (0-1.0); Monocytes % (A) 1 %; Neutrophils # (A) 10.2 k/uL (1.3-7.7); Neutrophils % (A) 91 %; RBC 3.79 m/uL (4.30-5.90); RDW 16.9 % (11.5-15.5); WBC 11.2 k/uL (3.8-10.6)
[2017-05-01 05:58] LABS: Anion Gap 9 mmol/L; Blood Urea Nitrogen 15 mg/dL (9-20); Calcium 8.2 mg/dL (8.4-10.2); Carbon Dioxide 22 mmol/L (22-30); Chloride 104 mmol/L (98-107); Glucose 130 mg/dL (74-99); Magnesium 2.2 mg/dL (1.6-2.3); Non-African American GFR(MDRD) >60 (>60 ml/min/1.73 sqM); Phosphorous 3.1 mg/dL (2.5-4.5); Potassium 5.1 mmol/L (3.5-5.1); Sodium 135 mmol/L (137-145)
[2017-05-01 06:03] LABS: Manual Review Performed; Polychromasia Present
[2017-05-01] MEDS: SODIUM CHLORIDE 0.9% 1,000 ML IV SCH ×2 (06:07→17:17)
[2017-05-01 07:44] LABS: Glucose,Whole Blood 116 mg/dL (75-99)
--- NOTE | 2017-05-01 08:08 | P.PN ---
Subjective Patient is a 61-year-old gentleman who was admitted from the emergency room after he had been drinking and fallen from his porch approximately 3-4 feet and suffered multiple right sided rib fractures. The patient was being followed on selective care. He was noted yesterday to be diaphoretic and lethargic. He had evidently been chewing tobacco and questionably aspirated. The patient was admitted to the intensive care unit. He was treated with BiPAP. This morning he is less lethargic and his oxygen saturations have improved. He is alert and oriented and complaining of being hungry. Objective - Vital Signs Vital signs: Vital Signs Temp 98.5 F 05/01/17 04:00 Pulse 93 05/01/17 07:00 Resp 22 05/01/17 07:00 BP 125/88 05/01/17 07:00 Pulse Ox 94 L 05/01/17 07:00 Intake & Output 04/30/17 05/01/17 05/01/17 18:59 06:59 18:59 Intake Total 1340.0 1100 100 Output Total 1385 675 50 Balance -45.0 425 50 Weight 94.6 kg Intake: IV 1040 1100 100 Sodium Chloride 0.9% 1, 1040 1100 100 000 ml @ 100 mls/hr IV . Q10H [facility] Rx#:[id number] Intake, IV Titration 300.0 Amount Magnesium Sulfate-D5w Pmx 250.0 1 gm In Dextrose/Water 1 100ml.bag @ 100 mls/hr IVPB Q1H [facility] Rx#: [id number] Piperacillin-Tazobactam 3 50.0 .375 gm In Dextrose/Water 1 50ml.bag @ 12.5 mls/hr IVPB Q8HR [facility] Rx#: [id number] Output: Urine 1385 675 50 Other: Voiding Method Indwelling Catheter Indwelling Catheter - Constitutional General appearance: Present: obese - EENT EENT Comment(s): BiPAP mask in place - Respiratory Details: Decreased breath sounds bilaterally Scattered rhonchi Inspiratory wheezing - Cardiovascular Rhythm: regular Heart sounds: normal: S1, S2 - Gastrointestinal General gastrointestinal: Present: normal bowel sounds, soft - Psychiatric Psychiatric: Present: A&O x's 3, appropriate affect - Labs CBC & Chem 7: 05/01/17 05:30 05/01/17 05:30 Labs: Abnormal Lab Results - Last 24 Hours (Table) 07/20/17 07/20/17 07/20/17 Range/Units 08:11 12:56 20:26 WBC (3.8-10.6) k/uL RBC (4.30-5.90) m/uL MCV (80.0-100.0) fL MCH (25.0-35.0) pg RDW (11.5-15.5) % Neutrophils # (1.3-7.7) k/uL Lymphocytes # (1.0-4.8) k/uL ABG pH 7.17 L* 7.23 L (7.35-7.45) ABG pCO2 80 H* 70 H* (35-45) mmHg ABG pO2 60 L (83-108) mmHg ABG HCO3 28 H 28 H (21-25) mmol/L ABG Total CO2 30 H 30 H (19-24) mmol/L ABG O2 Saturation 93.0 L 84.5 L (94-97) % Sodium (137-145) mmol/L Glucose (74-99) mg/dL POC Glucose (mg/dL) 136 H (75-99) mg/dL Calcium (8.4-10.2) mg/dL 05/01/17 05/01/17 05/01/17 Range/Units 05:30 05:30 07:25 WBC 11.2 H (3.8-10.6) k/uL RBC 3.79 L (4.30-5.90) m/uL MCV 117.6 H (80.0-100.0) fL MCH 38.3 H (25.0-35.0) pg RDW 16.9 H (11.5-15.5) % Neutrophils # 10.2 H (1.3-7.7) k/uL Lymphocytes # 0.8 L (1.0-4.8) k/uL ABG pH (7.35-7.45) ABG pCO2 (35-45) mmHg ABG pO2 (83-108) mmHg ABG HCO3 (21-25) mmol/L ABG Total CO2 (19-24) mmol/L ABG O2 Saturation (94-97) % Sodium 135 L (137-145) mmol/L Glucose 130 H (74-99) mg/dL POC Glucose (mg/dL) 116 H (75-99) mg/dL Calcium 8.2 L (8.4-10.2) mg/dL Microbiology - Last 24 Hours (Table) 04/29/17 00:45 Blood Culture - Preliminary Blood No Growth after 48 hours Assessment and Plan Plan: Impression/plan: 1. Small right-sided pneumothorax related to multiple right-sided rib fractures from recent fall/ probable left lower lobe aspiration pneumonia 2. Acute and chronic hypoxic respiratory failure 3. COPD 4. Asthma 5. Prior smoker 6. Increased lethargy possibly related to of aspiration/improved from yesterday Plan: 1. Daily chest x-rays 2. Pulmonary hygiene 3. Incentive spirometry 4. Nebulizer treatments 6. Pain medication as needed 7. GI and DVT prophylaxis 8. Obtain head CT R/O intracranial cause for lethargy 9. Awaiting repeat arterial blood gases
--- NOTE | 2017-05-01 08:13 | XR ---
EXAMINATION TYPE: XR chest 1V portable DATE OF EXAM: 05/01/2017 HISTORY: Shortness of breath. COMPARISON: 04/30/2017 TECHNIQUE: Single view of the chest is submitted. FINDINGS: Demonstrated are scattered senescent parenchymal change. Patchy infiltrate left perihilar and left lower lobe regions. Mild increased infiltrate right medial lung base as well. Overall no significant interval change appreciated. No evidence for pneumothorax. The heart is stable. Hilar and mediastinal structures are within normal limits. Degenerative changes are seen of the dorsal spine. IMPRESSION: 1. Patchy infiltrate left perihilar and left lower lobe regions. Mild increased infiltrate right med ial lung base as well. Overall no significant interval change appreciated.
[2017-05-01] MEDS: SYMBICORT 160-4.5 MCG INHALER INHALATION SCH ×2 (08:28→20:20)
[2017-05-01] MEDS: TIOTROPIUM 18 MCG/PUFF INHALER INHALATION SCH (08:28)
[2017-05-01] MEDS: INSULIN LISPRO (humaLOG) 300 UNIT/3 ML VIAL SQ SCH ×4 (09:24→21:35)
[2017-05-01] MEDS: methylPREDNISolone SOD SUCCI 40 MG/ML 1 ML VIAL IV SCH ×3 (09:25→23:28)
[2017-05-01] MEDS: FAMOTIDINE 20 MG/2 ML VIAL IV SCH ×2 (09:25→21:34)
[2017-05-01] MEDS: HEPARIN SODIUM,PORCINE 5,000 UNIT/ML 1 ML VIAL SQ SCH ×2 (09:26→21:35)
[2017-05-01] MEDS: PIPERACILLIN-TAZOBACTAM 3.375 GM in DEXTROSE/WATER 1 50ML.BAG IVPB SCH ×3 (09:52→23:28)
[2017-05-01] MEDS ORDERED: METHADONE 10 MG TAB PO SCH (10:15)
[2017-05-01 12:07] LABS: Glucose,Whole Blood 105 mg/dL (75-99)
--- NOTE | 2017-05-01 12:10 | P.PN ---
Subjective 04/29/17-This is a 61-year-old male who is being seen, evaluated and examined. This patient is well-known to our services. The patient came into the emergency room status post fall on 04/26/2017. Patient states he fell from his porch which was approximately 3-4 feet of a drop. He stated he was intoxicated with alcohol at the time. Patient stated that he landed on his right-sided chest. Patient denies and loss of consciousness or hitting his head. Patient initially did not have much pain but over the last 2 days the pain has increasingly gotten worse as well as he develop shortness of breath. The patient was taking naproxen at home without relief. Patient states that the pain is consistent moderate and with palpation it becomes more severe. Patient has developed increasing shortness of breath over the last few days as well as well as a productive cough with yellow sputum. She denies any hemoptysis. Patient is known to have history of COPD, patient states he does not use oxygen at home at this time however he has used it in the past.. Patient did undergo a CT of the chest abdomen and pelvis which revealed a small right pneumothorax, acute nondisplaced fractures right posterior seventh through ninth ribs. Some old healing fractures right posterior 10th rib 11th ribs, airspace opacity in the dependent lung bases consistent with atelectasis, possible superimposed right basilar pulmonary contusion. Upon examination the patient's resting up in bed on 2 L of supplemental oxygen. He states he continues to have rib pain with coughing. He is unable to bring up secretions due to pain. Patient states his current medications are effective for pain relief. He denies any fevers, chills, or hemoptysis, nausea, vomiting or diarrhea. 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 Patient's SpO2 was 86% on 4 L of supplemental oxygen. The patient's CBG was 118 patient was difficult to arouse. An 18 was called and stat ABGs were drawn and came back critical with a pH of 7.20 pCO2 of 71 and HCO3 26 and pO2 97% the patient was ultimately transferred over to the intensive care unit and put on BiPAP. A stat chest x-ray did show patchy airspace disease seen throughout both lungs, left greater than the right. Of note the patient also was suctioned and chewing tobacco was obtained the patient also vomited up a moderate amount of emesis, mixed with food articles as well as chewing tobacco. Apparently overnight the patient was found to be using chewing tobacco and it was removed from the patient's room and he was educated on the policy stating he could not have chewing tobacco in the hospital. Upon examination the patient is currently on BiPAP and is lethargic, his oxygen saturations have improved with the BiPAP, he does open his eyes spontaneously. The patient does not have any emergency contacts or family members that we are aware of to update we will put on social work to obtain a legal guardian for the patient. 05/01/17- this morning the patient is much more awake and alert. Patient was on BiPAP throughout the night and this morning. BiPAP was removed approximately 8 AM and the patient was transitioned to 10 L high flow nasal cannula with oxygen saturations in the mid 90s. Chest x-ray from this morning was reviewed and shows a mildly increased right infiltrate. Patient is on methadone and Xanax at home and he is requesting we transition to have those put back on his current meds. Education has been provided in regards to these medications and his respiratory status. We will start with methadone and hold on the Xanax at this time. She will also undergo a swallow eval before advancing his diet. Objective - Vital Signs Vital signs: Vital Signs Temp 98.1 F 05/01/17 08:00 Pulse 94 05/01/17 11:00 Resp 19 05/01/17 11:00 BP 140/98 05/01/17 11:00 Pulse Ox 93 L 05/01/17 11:38 Intake & Output 04/30/17 05/01/17 05/01/17 18:59 06:59 18:59 Intake Total 1340.0 1100 550 Output Total 1385 675 355 Balance -45.0 425 195 Weight 94.6 kg Intake: IV 1040 1100 500 Sodium Chloride 0.9% 1, 1040 1100 500 000 ml @ 100 mls/hr IV . Q10H EL Rx#:[id number] Intake, IV Titration 300.0 50 Amount Magnesium Sulfate-D5w Pmx 250.0 1 gm In Dextrose/Water 1 100ml.bag @ 100 mls/hr IVPB Q1H EL Rx#: [id number] Piperacillin-Tazobactam 3 50.0 50 .375 gm In Dextrose/Water 1 50ml.bag @ 12.5 mls/hr IVPB Q8HR [facility] Rx#: [id number] Output: Urine 1385 675 355 Other: Voiding Method Indwelling Catheter Indwelling Catheter Indwelling Catheter - Exam GENERAL EXAM: Awak3, no apparent distress HEAD: Normocephalic. EYES: Normal reaction of pupils, equal size. NOSE: Clear with pink turbinates. THROAT: No erythema or exudates. NECK: No masses, no JVD. CHEST: No chest wall deformity. LUNGS: Patient noted to have coarse breath sounds with scattered rhonchi and faint end expiratory wheezes. Patient also known to have chest wall tenderness on the right side. CVS: S1 and S2 normal with no audible mumurs, regular rhythm. ABDOMEN: No hepatosplenomegaly, normal bowel sounds, no guarding or rigidity. EXTREMITIES: No edema noted, pedal pulses palpable. CENTRAL NERVOUS SYSTEM: No focal deficits, tone is normal in all 4 extremities. - Labs CBC & Chem 7: 05/01/17 05:30 05/01/17 05:30 Labs: Abnormal Lab Results - Last 24 Hours (Table) 04/30/17 04/30/17 05/01/17 Range/Units 12:56 20:26 05:30 WBC (3.8-10.6) k/uL RBC (4.30-5.90) m/uL MCV (80.0-100.0) fL MCH (25.0-35.0) pg RDW (11.5-15.5) % Neutrophils # (1.3-7.7) k/uL Lymphocytes # (1.0-4.8) k/uL ABG pH 7.23 L (7.35-7.45) ABG pCO2 70 H* (35-45) mmHg ABG pO2 60 L (83-108) mmHg ABG HCO3 28 H (21-25) mmol/L ABG Total CO2 30 H (19-24) mmol/L ABG O2 Saturation 84.5 L (94-97) % Sodium 135 L (137-145) mmol/L Glucose 130 H (74-99) mg/dL POC Glucose (mg/dL) 136 H (75-99) mg/dL Calcium 8.2 L (8.4-10.2) mg/dL 05/01/17 05/01/17 Range/Units 05:30 07:25 WBC 11.2 H (3.8-10.6) k/uL RBC 3.79 L (4.30-5.90) m/uL MCV 117.6 H (80.0-100.0) fL MCH 38.3 H (25.0-35.0) pg RDW 16.9 H (11.5-15.5) % Neutrophils # 10.2 H (1.3-7.7) k/uL Lymphocytes # 0.8 L (1.0-4.8) k/uL ABG pH (7.35-7.45) ABG pCO2 (35-45) mmHg ABG pO2 (83-108) mmHg ABG HCO3 (21-25) mmol/L ABG Total CO2 (19-24) mmol/L ABG O2 Saturation (94-97) % Sodium (137-145) mmol/L Glucose (74-99) mg/dL POC Glucose (mg/dL) 116 H (75-99) mg/dL Calcium (8.4-10.2) mg/dL Microbiology - Last 24 Hours (Table) 04/29/17 00:45 Blood Culture - Preliminary Blood No Growth after 48 hours Assessment and Plan Plan: Assessment Left lower lobe aspiration pneumonia likely related to chewing tobacco Increased lethargy Status post fall Small right sided pneumothorax Multiple right-sided rib fractures Acute on chronic hypoxic respiratory failure COPD Chronic persistent moderate asthma with a component of ALLERGIC asthma Nicotine dependence Plan Medications have been reviewed and will be continued as ordered. We will reorder the home dose of methadone. Swallow eval to be completed by nurse before diet can be advanced. He has been placed on IV Solu-Medrol 40 every 8 hours. We will continue to monitor the pneumothorax which seems to be improved however newly developed left lower lobe aspiration pneumonia is present. Daily chest xrays. We will obtain a CT of the brain. Initiate and encourage incentive spirometer. Continue with pulmonary hygiene, coughing and deep breathing exercises, and supportive care. Supplemental oxygen to maintain oxygen saturations of 92% or better. Continue nebulizer treatments. GI and DVT prophylaxis. 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 We will continue to monitor labs/results and adjust treatment as necessary. Further recommendations pending. I performed an examination of the patient and discussed their management with the nurse practitioner. I have reviewed the nurse practitioner's note and agree with the documented findings and plan of care.
[2017-05-01 16:03] LABS: ABG PH 7.31 (7.35-7.45)
[2017-05-01 16:04] LABS: ABG Base Excess -0.9 mmol/L; ABG HCO3 24 mmol/L (21-25); ABG PCO2 50 mmHg (35-45); ABG PO2 100 mmHg (83-108); ABG TCO2 26 mmol/L (19-24)
[2017-05-01] MEDS ORDERED: LORazepam 2 MG/ML SYRINGE IM STA (16:11)
[2017-05-01] MEDS ORDERED: THIAMINE 100 MG/ML 2 ML VIAL IM STA (16:11)
[2017-05-01] MEDS: HALOPERIDOL LACTATE 5 MG/ML 1 ML VIAL IVP PRN (16:23)
[2017-05-01 17:12] LABS: Glucose,Whole Blood 138 mg/dL (75-99)
[2017-05-01] MEDS: LORazepam 2 MG/ML SYRINGE IV PRN ×3 (17:14→21:00)
[2017-05-01] MEDS: ZIPRASIDONE 20 MG VIAL IM PRN (17:46)
[2017-05-01] MEDS ORDERED: RX INFO: IV CONTRAST WAS GIVEN 1 EACH MISC MISCELLANE PRN (18:57)
[2017-05-01] MEDS: THIAMINE 100 MG TAB PO SCH (20:16)
--- NOTE | 2017-05-01 20:19 | CT ---
EXAMINATION TYPE: CT brain wo/w con DATE OF EXAM: 05/01/2017 COMPARISON: 07/03/2013 HISTORY: Patient poor historian CT DLP: 2279 mGycm Automated exposure control for dose reduction was used. CONTRAST: CT scan of the head is performed with IV Contrast, patient injected with 100 mL of Omnipaque 300. FINDINGS: Ventricles have normal size. There is no mass effect nor midline shift. There is no sign of intracran ial hemorrhage. There is mild mucosal thickening in the ethmoid air cells. The calvarium is intact. The contrast images show no pathologic enhancement. There is no evidence of an infarct. Sella turcica appears normal. IMPRESSION: Negative CT scan of the brain with and without contrast. No change compared to old exam.
[2017-05-01 21:24] LABS: Glucose,Whole Blood 105 mg/dL (75-99)
--- NOTE | 2017-05-01 22:38 | P.PN ---
Subjective Mr. Craig is a 61-year-old male with a known history of asthma/COPD EtOH abuse, chronic pain and liver disease came to the ER status post fall on 04/26/2017. Patient was intoxicated with all call and had a mechanical fall. Patient landed on the right side of his chest. Denied any headache or head injury or loss of consciousness. Patient has been increasing short of breath and pain with deep breathing. Patient came to the hospital. Patient has been having chronic cough with whitish to yellow sputum. No increasing in quantity of sputum or frequency. Patient had CT of the chest abdomen and pelvis was done in the year showed a small right pneumothorax, acute nondisplaced fractures right posterior seventh through ninth ribs. Patient also had right posterior 10th rib and 11th rib. An air space opacity in the dependent lung bases consistent with atelectasis and superimposed possible right basilar pulmonary contusion.. Currently patient is complaining of pain with coughing and deep breathing. No fever or chills. No nausea vomiting or abdominal Pain. On 04/30/17 - Pt became diaphoretic, pale, lethargic and his O2 sat dropped to 86% on 4 L of supplemental oxygen. ABGs were drawn showed - pH of 7.20 pCO2 of 71 and HCO3 26 and pO2 97% the patient was placed on BiPAP and transferred over to the intensive care unit . Apparently the pt was found chewing tobacco and also threw up once and eventually went into respiratory distress. A stat chest x-ray did show patchy airspace disease seen throughout both lungs. So he might have aspirated. Complete ROS could not be done as the pt is on BiPAP. As per nursing staff report , no other active issues. Objective - Vital Signs Vital signs: Vital Signs Temp 99.0 F 04/30/17 04:00 Pulse 98 04/30/17 07:57 Resp 7 L 04/30/17 07:00 BP 114/74 04/30/17 07:00 Pulse Ox 92 L 04/30/17 07:00 Intake & Output 04/29/17 04/30/17 04/30/17 18:59 06:59 18:59 Intake Total 200 Output Total 200 750 Balance 0 -750 Intake: Oral 200 Output: Urine 200 750 Other: Voiding Method Indwelling Catheter # Voids 1 100 Vital Signs - Exam HEENT: Normocephalic. Neck is supple. Pupils reactive. Nostrils clear. Oral cavity is moist. Ears reveal no drainage. Neck reveals no JVD, carotid bruits, or thyromegaly. CHEST EXAMINATION: Trachea is central. Decreased air entry right lower lobes mainly right side and minimal crackles.Coarse breath sounds in all lung drake. Right lower rib cage tenderness and pain no crepitus heard. CARDIAC: Normal S1, S2 with no gallops. No murmurs ABDOMEN: Soft. Bowel sounds normal. No organomegaly. No abdominal bruits. Extremities: reveal no edema. No clubbing or cyanosis Neurologically awake, alert, oriented x3 with well-coordinated movements. No focal deficits noted Skin: No rash or skin lesions. Psychiatric: Operative. Nonsuicidal Musculoskeletal: No joint swelling or deformity. Normal range of motion. - Labs CBC & Chem 7: 05/01/17 05:30 05/01/17 05:30 Labs: Abnormal Lab Results - Last 24 Hours (Table) 05/01/17 05/01/17 05/01/17 Range/Units 05:30 05:30 07:25 WBC 11.2 H (3.8-10.6) k/uL RBC 3.79 L (4.30-5.90) m/uL MCV 117.6 H (80.0-100.0) fL MCH 38.3 H (25.0-35.0) pg RDW 16.9 H (11.5-15.5) % Neutrophils # 10.2 H (1.3-7.7) k/uL Lymphocytes # 0.8 L (1.0-4.8) k/uL ABG pH (7.35-7.45) ABG pCO2 (35-45) mmHg ABG Total CO2 (19-24) mmol/L Sodium 135 L (137-145) mmol/L Glucose 130 H (74-99) mg/dL POC Glucose (mg/dL) 116 H (75-99) mg/dL Calcium 8.2 L (8.4-10.2) mg/dL 05/01/17 05/01/17 05/01/17 Range/Units 12:04 15:58 17:10 WBC (3.8-10.6) k/uL RBC (4.30-5.90) m/uL MCV (80.0-100.0) fL MCH (25.0-35.0) pg RDW (11.5-15.5) % Neutrophils # (1.3-7.7) k/uL Lymphocytes # (1.0-4.8) k/uL ABG pH 7.31 L (7.35-7.45) ABG pCO2 50 H (35-45) mmHg ABG Total CO2 26 H (19-24) mmol/L Sodium (137-145) mmol/L Glucose (74-99) mg/dL POC Glucose (mg/dL) 105 H 138 H (75-99) mg/dL Calcium (8.4-10.2) mg/dL 05/01/17 Range/Units 21:20 WBC (3.8-10.6) k/uL RBC (4.30-5.90) m/uL MCV (80.0-100.0) fL MCH (25.0-35.0) pg RDW (11.5-15.5) % Neutrophils # (1.3-7.7) k/uL Lymphocytes # (1.0-4.8) k/uL ABG pH (7.35-7.45) ABG pCO2 (35-45) mmHg ABG Total CO2 (19-24) mmol/L Sodium (137-145) mmol/L Glucose (74-99) mg/dL POC Glucose (mg/dL) 105 H (75-99) mg/dL Calcium (8.4-10.2) mg/dL Microbiology - Last 24 Hours (Table) 04/29/17 00:45 Blood Culture - Preliminary Blood No Growth after 48 hours Assessment and Plan Plan: 1.Acute Hypoxic respiratory failure- due to Aspiration 1 Status post mechanical fall along with EtOH intoxication 2 Small right-sided pneumothorax 3 Right-sided posterior seventh through ninth rib fractures nondisplaced 4 acute on chronic hypoxic respiratory failure 5 COPD with mild exacerbation 6 history of moderately chronic persistent asthma with ALLERGY component 7 EtOH abuse and a good ejection 8 Elevated lactic acidosis due to volume depletion. 9 DVT prophylaxis 10 Mildly elevated liver enzymes 11 Macrocytosis PLAN: Patient is placed on Bipap and transferred to the ICU. Continue with IV hydration. Monitor for EtOH withdrawal symptoms. No surgical intervention from general surgery. We will continue with the repeat chest x-ray and follow closely further recommendations based on the clinical course.
[2017-05-01] MEDS: METHADONE 10 MG TAB PO SCH (23:27)
--- NOTE | 2017-05-02 01:50 | P.PN ---
Subjective Principal diagnosis: s/p fall and RT sided rib fractures Mr. Craig is a 61-year-old male with a known history of asthma/COPD EtOH abuse, chronic pain and liver disease came to the ER status post fall on 04/26/2017. Patient was intoxicated with all call and had a mechanical fall. Patient landed on the right side of his chest. Denied any headache or head injury or loss of consciousness. Patient has been increasing short of breath and pain with deep breathing. Patient came to the hospital. Patient has been having chronic cough with whitish to yellow sputum. No increasing in quantity of sputum or frequency. Patient had CT of the chest abdomen and pelvis was done in the year showed a small right pneumothorax, acute nondisplaced fractures right posterior seventh through ninth ribs. Patient also had right posterior 10th rib and 11th rib. An air space opacity in the dependent lung bases consistent with atelectasis and superimposed possible right basilar pulmonary contusion.. Currently patient is complaining of pain with coughing and deep breathing. No fever or chills. No nausea vomiting or abdominal Pain. On 04/30/17 - Pt became diaphoretic, pale, lethargic and his O2 sat dropped to 86% on 4 L of supplemental oxygen. ABGs were drawn showed - pH of 7.20 pCO2 of 71 and HCO3 26 and pO2 97% the patient was placed on BiPAP and transferred over to the intensive care unit . Apparently the pt was found chewing tobacco and also threw up once and eventually went into respiratory distress. A stat chest x-ray did show patchy airspace disease seen throughout both lungs. So he might have aspirated. on 05/01/17 Pt. is saturating well on NC, Pt. is agitated and is in DTs. no fever/chills Complete ROS could not be done as the pt is on BiPAP. As per nursing staff report , no other active issues. Objective - Vital Signs Vital signs: Vital Signs Temp 97.0 F L 05/01/17 21:00 Pulse 79 05/01/17 23:00 Resp 11 L 05/01/17 23:00 BP 98/63 05/01/17 23:00 Pulse Ox 99 05/01/17 23:00 Intake & Output 05/01/17 05/01/17 05/02/17 06:59 18:59 06:59 Intake Total 1100 950 500 Output Total 675 375 510 Balance 425 575 -10 Weight 94.6 kg Intake: IV 1100 900 500 Sodium Chloride 0.9% 1, 1100 900 500 000 ml @ 100 mls/hr IV . Q10H EL Rx#:[id number] Intake, IV Titration 50 Amount Piperacillin-Tazobactam 3 50 .375 gm In Dextrose/Water 1 50ml.bag @ 12.5 mls/hr IVPB Q8HR EL Rx#: [id number] Output: Urine 675 375 510 Other: Voiding Method Indwelling Catheter Urinal Indwelling Catheter # Voids 0 - Exam HEENT: Normocephalic. Neck is supple. Pupils reactive. Nostrils clear. Oral cavity is moist. Ears reveal no drainage. Neck reveals no JVD, carotid bruits, or thyromegaly. CHEST EXAMINATION: Trachea is central. Decreased air entry right lower lobes mainly right side and minimal crackles.Coarse breath sounds in all lung drake. Right lower rib cage tenderness and pain no crepitus heard. CARDIAC: Normal S1, S2 with no gallops. No murmurs ABDOMEN: Soft. Bowel sounds normal. No organomegaly. No abdominal bruits. Extremities: reveal no edema. No clubbing or cyanosis Neurologically awake, alert, oriented x3 with well-coordinated movements. No focal deficits noted Skin: No rash or skin lesions. Psychiatric: Operative. Nonsuicidal Musculoskeletal: No joint swelling or deformity. Normal range of motion. - Labs CBC & Chem 7: 05/01/17 05:30 05/01/17 05:30 Labs: Abnormal Lab Results - Last 24 Hours (Table) 05/01/17 05/01/17 05/01/17 Range/Units 05:30 05:30 07:25 WBC 11.2 H (3.8-10.6) k/uL RBC 3.79 L (4.30-5.90) m/uL MCV 117.6 H (80.0-100.0) fL MCH 38.3 H (25.0-35.0) pg RDW 16.9 H (11.5-15.5) % Neutrophils # 10.2 H (1.3-7.7) k/uL Lymphocytes # 0.8 L (1.0-4.8) k/uL ABG pH (7.35-7.45) ABG pCO2 (35-45) mmHg ABG Total CO2 (19-24) mmol/L Sodium 135 L (137-145) mmol/L Glucose 130 H (74-99) mg/dL POC Glucose (mg/dL) 116 H (75-99) mg/dL Calcium 8.2 L (8.4-10.2) mg/dL 05/01/17 05/01/17 05/01/17 Range/Units 12:04 15:58 17:10 WBC (3.8-10.6) k/uL RBC (4.30-5.90) m/uL MCV (80.0-100.0) fL MCH (25.0-35.0) pg RDW (11.5-15.5) % Neutrophils # (1.3-7.7) k/uL Lymphocytes # (1.0-4.8) k/uL ABG pH 7.31 L (7.35-7.45) ABG pCO2 50 H (35-45) mmHg ABG Total CO2 26 H (19-24) mmol/L Sodium (137-145) mmol/L Glucose (74-99) mg/dL POC Glucose (mg/dL) 105 H 138 H (75-99) mg/dL Calcium (8.4-10.2) mg/dL 05/01/17 Range/Units 21:20 WBC (3.8-10.6) k/uL RBC (4.30-5.90) m/uL MCV (80.0-100.0) fL MCH (25.0-35.0) pg RDW (11.5-15.5) % Neutrophils # (1.3-7.7) k/uL Lymphocytes # (1.0-4.8) k/uL ABG pH (7.35-7.45) ABG pCO2 (35-45) mmHg ABG Total CO2 (19-24) mmol/L Sodium (137-145) mmol/L Glucose (74-99) mg/dL POC Glucose (mg/dL) 105 H (75-99) mg/dL Calcium (8.4-10.2) mg/dL Microbiology - Last 24 Hours (Table) 04/29/17 00:45 Blood Culture - Preliminary Blood No Growth after 48 hours Assessment and Plan Plan: 1. Delirium Tremens 1.Acute Hypoxic respiratory failure- due to Aspiration 1 Status post mechanical fall along with EtOH intoxication 2 Small right-sided pneumothorax 3 Right-sided posterior seventh through ninth rib fractures nondisplaced 4 acute on chronic hypoxic respiratory failure 5 COPD with mild exacerbation 6 history of moderately chronic persistent asthma with ALLERGY component 7 EtOH abuse 8 Elevated lactic acidosis due to volume depletion. 9 DVT prophylaxis 10 Mildly elevated liver enzymes 11 Macrocytosis PLAN: Pt. is currently in the ICU. DC BIPPA Continue with IV hydration. continue to treat DTs No surgical intervention from general surgery. We will continue with the repeat chest x-ray and follow closely further recommendations based on the clinical course. Time with Patient: Greater than 30
[2017-05-02] MEDS: LORazepam 2 MG/ML SYRINGE IV PRN ×10 (02:18→22:55)
[2017-05-02] MEDS: HALOPERIDOL LACTATE 5 MG/ML 1 ML VIAL IVP PRN ×2 (02:47→09:02)
[2017-05-02] MEDS: ALBUTEROL NEBULIZED 2.5 MG/3 ML INHALATION SCH ×3 (02:49→19:36)
[2017-05-02] MEDS: SODIUM CHLORIDE 0.9% 1,000 ML IV SCH ×2 (03:26→13:48)
[2017-05-02 05:31] LABS: Anisocytosis Slight; Basophils % (A) 0 %; CH 36.7; CHCM 31.6; Eosinophils % (A) 0 %; HCT 39.8 % (39.0-53.0); HDW 2.65; HGB 12.9 gm/dL (13.0-17.5); Luc # (Auto) 0.05; Luc % (Auto) 1; Lymphocytes # (A) 0.7 k/uL (1.0-4.8); Lymphocytes % (A) 8 %; MCHC 32.4 g/dL (31.0-37.0); MCV 117.1 fL (80.0-100.0); Macrocytosis Marked; Mean Platelet Volume 7.9; Monocytes # (A) 0.2 k/uL (0-1.0); Monocytes % (A) 2 %; Neutrophils # (A) 8.2 k/uL (1.3-7.7); Neutrophils % (A) 89 %; RDW 16.8 % (11.5-15.5); WBC 9.2 k/uL (3.8-10.6)
[2017-05-02 05:47] LABS: Anion Gap 6 mmol/L; Blood Urea Nitrogen 21 mg/dL (9-20); Calcium 8.2 mg/dL (8.4-10.2); Carbon Dioxide 25 mmol/L (22-30); Chloride 106 mmol/L (98-107); Glucose 114 mg/dL (74-99); Magnesium 2.2 mg/dL (1.6-2.3); Non-African American GFR(MDRD) >60 (>60 ml/min/1.73 sqM); Phosphorous 2.6 mg/dL (2.5-4.5); Potassium 4.4 mmol/L (3.5-5.1); Sodium 137 mmol/L (137-145)
[2017-05-02 06:33] LABS: Manual Review Performed
[2017-05-02 07:10] LABS: Glucose,Whole Blood 110 mg/dL (75-99)
[2017-05-02] MEDS: INSULIN LISPRO (humaLOG) 300 UNIT/3 ML VIAL SQ SCH ×4 (07:10→20:49)
[2017-05-02] MEDS: SYMBICORT 160-4.5 MCG INHALER INHALATION SCH ×3 (07:55→19:39)
[2017-05-02] MEDS: TIOTROPIUM 18 MCG/PUFF INHALER INHALATION SCH ×2 (07:55→11:47)
--- NOTE | 2017-05-02 08:04 | XR ---
EXAMINATION TYPE: XR chest 1V portable DATE OF EXAM: 05/02/2017 HISTORY: Shortness of breath. COMPARISON: 05/01/2017 TECHNIQUE: Single view of the chest is submitted. FINDINGS: Demonstrated are scattered senescent parenchymal change. Increasing patchy perihilar and basilar infiltrates may reflect progressive pneumonia. No evidence for pneumothorax at this time. The heart is stable. Hilar and mediastinal structures are within normal limits. Degenerative changes are seen of the dorsal spine. IMPRESSION: 1. Increasing patchy perihilar and basilar infiltrates may reflect progressive pneumonia.
[2017-05-02] MEDS: FAMOTIDINE 20 MG/2 ML VIAL IV SCH ×2 (08:53→20:48)
[2017-05-02] MEDS: methylPREDNISolone SOD SUCCI 40 MG/ML 1 ML VIAL IV SCH ×2 (08:53→15:43)
[2017-05-02] MEDS: PIPERACILLIN-TAZOBACTAM 3.375 GM in DEXTROSE/WATER 1 50ML.BAG IVPB SCH ×2 (08:53→15:42)
[2017-05-02] MEDS: HEPARIN SODIUM,PORCINE 5,000 UNIT/ML 1 ML VIAL SQ SCH ×2 (08:53→20:48)
--- NOTE | 2017-05-02 11:28 | P.PN ---
Subjective 04/29/17-This is a 61-year-old male who is being seen, evaluated and examined. This patient is well-known to our services. The patient came into the emergency room status post fall on 04/26/2017. Patient states he fell from his porch which was approximately 3-4 feet of a drop. He stated he was intoxicated with alcohol at the time. Patient stated that he landed on his right-sided chest. Patient denies and loss of consciousness or hitting his head. Patient initially did not have much pain but over the last 2 days the pain has increasingly gotten worse as well as he develop shortness of breath. The patient was taking naproxen at home without relief. Patient states that the pain is consistent moderate and with palpation it becomes more severe. Patient has developed increasing shortness of breath over the last few days as well as well as a productive cough with yellow sputum. She denies any hemoptysis. Patient is known to have history of COPD, patient states he does not use oxygen at home at this time however he has used it in the past.. Patient did undergo a CT of the chest abdomen and pelvis which revealed a small right pneumo thorax , acute nondisplaced fractures right posterior seventh through ninth ribs. Some old healing fractures right posterior 10th rib 11th ribs, airspace opacity in the dependent lung bases consistent with atelectasis, possible superimposed right basilar pulmonary contusion. Upon examination the patient's resting up in bed on 2 L of supplemental oxygen. He states he continues to have rib pain with coughing. He is unable to bring up secretions due to pain. Patient states his current medications are effective for pain relief. He denies any fevers, chills, or hemoptysis, nausea, vomiting or diarrhea. 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 Patient's SpO2 was 86% on 4 L of supplemental oxygen. The patient's CBG was 118 patient was difficult to arouse. An 18 was called and stat ABGs were drawn and came back critical with a pH of 7.20 pCO2 of 71 and HCO3 26 and pO2 97% the patient was ultimately transferred over to the intensive care unit and put on BiPAP. A stat chest x-ray did show patchy airspace disease seen throughout both lungs, left greater than the right. Of note the patient also was suctioned and chewing tobacco was obtained the patient also vomited up a moderate amount of emesis, mixed with food articles as well as chewing tobacco. Apparently overnight the patient was found to be using chewing tobacco and it was removed from the patient's room and he was educated on the policy stating he could not have chewing tobacco in the hospital. Upon examination the patient is currently on BiPAP and is lethargic, his oxygen saturations have improved with the BiPAP, he does open his eyes spontaneously. The patient does not have any emergency contacts or family members that we are aware of to update we will put on social work to obtain a legal guardian for the patient. 05/01/17- this morning the patient is much more awake and alert. Patient was on BiPAP throughout the night and this morning. BiPAP was removed approximately 8 AM and the patient was transitioned to 10 L high flow nasal cannula with oxygen saturations in the mid 90s. Chest x-ray from this morning was reviewed and shows a mildly increased right infiltrate. Patient is on methadone and Xanax at home and he is requesting we transition to have those put back on his current meds. Education has been provided in regards to these medications and his respiratory status. We will start with methadone and hold on the Xanax at this time. She will also undergo a swallow eval before advancing his diet. 05/02/17 patient seen and evaluated and examined during the rounds in ICU he remains he remains intermittently anxious and agitated OxyIR and respiratory acidosis patient has been resumed on BiPAP currently patient is on IPAP of 15 and EPAP of 5 with 50% oxygen conceive a protocol as well as Haldol as needed and methadone has been resumed and the patient appears to be going through DTs as well, patient is being started on the thiamine and folic acid MVI him a care plan discussed with the primary service and nursing staff at length laboratory data reviewed chest x-ray reviewed as well, critical care time spent 35 minutes Objective - Vital Signs Vital signs: Vital Signs Temp 97.1 F L 05/02/17 08:00 Pulse 99 05/02/17 11:00 Resp 15 05/02/17 11:00 BP 124/73 05/02/17 11:00 Pulse Ox 92 L 05/02/17 11:00 Intake & Output 05/01/17 05/02/17 05/02/17 18:59 06:59 18:59 Intake Total 950 1250.0 350 Output Total 375 850 190 Balance 575 400.0 160 Weight 97.6 kg 97.6 kg Intake: IV 900 1250.0 350 Piperacillin-Tazobactam 3 50.0 50 .375 gm In Dextrose/Water 1 50ml.bag @ 12.5 mls/hr IVPB Q8HR EL Rx#: [id number] Sodium Chloride 0.9% 1, 900 1200 300 000 ml @ 100 mls/hr IV . Q10H EL Rx#:[id number] Intake, IV Titration 50 Amount Piperacillin-Tazobactam 3 50 .375 gm In Dextrose/Water 1 50ml.bag @ 12.5 mls/hr IVPB Q8HR EL Rx#: [id number] Output: Urine 375 850 190 Other: Voiding Method Urinal Indwelling Catheter Indwelling Catheter # Voids 0 0 - Exam GENERAL EXAM: More somnolent placed on BiPAP as dictated above, no apparent distress HEAD: Normocephalic. EYES: Normal reaction of pupils, equal size. NOSE: Clear with pink turbinates. THROAT: No erythema or exudates. NECK: No masses, no JVD. CHEST: No chest wall deformity. LUNGS: Patient noted to have coarse breath sounds with scattered rhonchi and faint end expiratory wheezes. Patient also known to have chest wall tenderness on the right side. CVS: S1 and S2 normal with no audible mumurs, regular rhythm. ABDOMEN: No hepatosplenomegaly, normal bowel sounds, no guarding or rigidity. Distended but soft EXTREMITIES: No edema noted, pedal pulses palpable. CENTRAL NERVOUS SYSTEM: No focal deficits, tone is normal in all 4 extremities. - Labs CBC & Chem 7: 05/02/17 05:17 05/02/17 05:17 Labs: Abnormal Lab Results - Last 24 Hours (Table) 05/01/17 05/01/17 05/01/17 Range/Units 12:04 15:58 17:10 RBC (4.30-5.90) m/uL Hgb (13.0-17.5) gm/dL MCV (80.0-100.0) fL MCH (25.0-35.0) pg RDW (11.5-15.5) % Neutrophils # (1.3-7.7) k/uL Lymphocytes # (1.0-4.8) k/uL ABG pH 7.31 L (7.35-7.45) ABG pCO2 50 H (35-45) mmHg ABG Total CO2 26 H (19-24) mmol/L BUN (9-20) mg/dL Glucose (74-99) mg/dL POC Glucose (mg/dL) 105 H 138 H (75-99) mg/dL Calcium (8.4-10.2) mg/dL 05/01/17 05/02/17 05/02/17 Range/Units 21:20 05:17 05:17 RBC 3.40 L (4.30-5.90) m/uL Hgb 12.9 L (13.0-17.5) gm/dL MCV 117.1 H (80.0-100.0) fL MCH 38.0 H (25.0-35.0) pg RDW 16.8 H (11.5-15.5) % Neutrophils # 8.2 H (1.3-7.7) k/uL Lymphocytes # 0.7 L (1.0-4.8) k/uL ABG pH (7.35-7.45) ABG pCO2 (35-45) mmHg ABG Total CO2 (19-24) mmol/L BUN 21 H (9-20) mg/dL Glucose 114 H (74-99) mg/dL POC Glucose (mg/dL) 105 H (75-99) mg/dL Calcium 8.2 L (8.4-10.2) mg/dL 05/02/17 Range/Units 07:09 RBC (4.30-5.90) m/uL Hgb (13.0-17.5) gm/dL MCV (80.0-100.0) fL MCH (25.0-35.0) pg RDW (11.5-15.5) % Neutrophils # (1.3-7.7) k/uL Lymphocytes # (1.0-4.8) k/uL ABG pH (7.35-7.45) ABG pCO2 (35-45) mmHg ABG Total CO2 (19-24) mmol/L BUN (9-20) mg/dL Glucose (74-99) mg/dL POC Glucose (mg/dL) 110 H (75-99) mg/dL Calcium (8.4-10.2) mg/dL Microbiology - Last 24 Hours (Table) 04/29/17 00:45 Blood Culture - Preliminary Blood No Growth after 72 hours Assessment and Plan Plan: Assessment Left lower lobe aspiration pneumonia likely related to chewing tobacco Increased lethargy, likely related to DTs Status post fall, hypoxic hypercapnic respiratory failure Small right sided pneumothorax, traumatic however remains stable Multiple right-sided rib fractures Acute on chronic hypoxic respiratory failure Severe COPD Chronic persistent moderate asthma with a component of ALLERGIC asthma Nicotine dependence Plan Medications have been reviewed and will be continued as ordered. We will reorder the home dose of methadone. Swallow eval to be completed by nurse before diet can be advanced. He has been placed on IV Solu-Medrol 40 every 8 hours. We will continue to monitor the pneumothorax which seems to be improved however newly developed left lower lobe aspiration pneumonia is present. Daily chest xrays. We will obtain a CT of the brain. Initiate and encourage incentive spirometer. Continue with pulmonary hygiene, coughing and deep breathing exercises, and supportive care. Supplemental oxygen to maintain oxygen saturations of 92% or better. Continue nebulizer treatments. GI and DVT prophylaxis. 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 We will continue to monitor labs/results and adjust treatment as necessary. We'll maintain on BiPAP use oxygen as needed abdomen ICU Further recommendations pending. Time with Patient: Greater than 30 (cct 35 min)
[2017-05-02 12:20] LABS: Glucose,Whole Blood 100 mg/dL (75-99)
[2017-05-02] MEDS: METHADONE 10 MG TAB PO SCH ×2 (13:47→20:49)
[2017-05-02] MEDS: THIAMINE 100 MG TAB PO SCH ×2 (13:50→17:58)
[2017-05-02] MEDS: ZIPRASIDONE 20 MG VIAL IM PRN (15:43)
[2017-05-02] MEDS: MORPHINE SULFATE 2 MG/ML SYRINGE IVP SCH ×2 (17:57→20:16)
[2017-05-02 17:59] LABS: Glucose,Whole Blood 100 mg/dL (75-99)
--- NOTE | 2017-05-02 19:10 | P.PN ---
Subjective s/p fall and RT sided rib fractures Mr. Craig is a 61-year-old male with a known history of asthma/COPD EtOH abuse, chronic pain and liver disease came to the ER status post fall on 04/26/2017. Patient was intoxicated with all call and had a mechanical fall. Patient landed on the right side of his chest. Denied any headache or head injury or loss of consciousness. Patient has been increasing short of breath and pain with deep breathing. Patient came to the hospital. Patient has been having chronic cough with whitish to yellow sputum. No increasing in quantity of sputum or frequency. Patient had CT of the chest abdomen and pelvis was done in the year showed a small right pneumothorax, acute nondisplaced fractures right posterior seventh through ninth ribs. Patient also had right posterior 10th rib and 11th rib. An air space opacity in the dependent lung bases consistent with atelectasis and superimposed possible right basilar pulmonary contusion.. Currently patient is complaining of pain with coughing and deep breathing. No fever or chills. No nausea vomiting or abdominal Pain. On 04/30/17 - Pt became diaphoretic, pale, lethargic and his O2 sat dropped to 86% on 4 L of supplemental oxygen. ABGs were drawn showed - pH of 7.20 pCO2 of 71 and HCO3 26 and pO2 97% the patient was placed on BiPAP and transferred over to the intensive care unit . Apparently the pt was found chewing tobacco and also threw up once and eventually went into respiratory distress. A stat chest x-ray did show patchy airspace disease seen throughout both lungs. So he might have aspirated. on 05/01/17 Pt. is saturating well on NC, Pt. is agitated and is in DTs. no fever/chills Complete ROS could not be done as the pt is on BiPAP. As per nursing staff report , no other active issues. on 05/02/17 pt is lethargic - Exam HEENT: Normocephalic. Neck is supple. Pupils reactive. Nostrils clear. Oral cavity is moist. Ears reveal no drainage. Neck reveals no JVD, carotid bruits, or thyromegaly. CHEST EXAMINATION: Trachea is central. Decreased air entry right lower lobes mainly right side and minimal crackles.Coarse breath sounds in all lung drake. Right lower rib cage tenderness and pain no crepitus heard. CARDIAC: Normal S1, S2 with no gallops. No murmurs ABDOMEN: Soft. Bowel sounds normal. No organomegaly. No abdominal bruits. Extremities: reveal no edema. No clubbing or cyanosis Neurologically alert to self Skin: No rash or skin lesions. Musculoskeletal: No joint swelling or deformity. Normal range of motion. Assessment and Plan Plan: 1. Delirium Tremens, encephalopathy, both metabolic and toxic 1.Acute Hypoxic respiratory failure- due to Aspiration 1 Status post mechanical fall along with EtOH intoxication 2 Small right-sided pneumothorax 3 Right-sided posterior seventh through ninth rib fractures nondisplaced 4 acute on chronic hypoxic respiratory failure 5 COPD with mild exacerbation 6 history of moderately chronic persistent asthma with ALLERGY component 7 EtOH abuse 8 Elevated lactic acidosis due to volume depletion. 9 DVT prophylaxis 10 Mildly elevated liver enzymes 11 Macrocytosis PLAN: pt is critically ill NO family according to his neighbors will start the pt on morphine 2mg iv q4h hrs, pt was on methadone, suspect some degree of opioid withdrawal as well may need to be intubated if pt gets more agitated and given medications dc haloperidol around the clock geodon IM will also be given Objective - Vital Signs Vital signs: Vital Signs Temp 97.0 F L 05/02/17 16:00 Pulse 83 05/02/17 17:00 Resp 6 L 05/02/17 17:00 BP 100/70 05/02/17 17:00 Pulse Ox 92 L 05/02/17 17:00 Intake & Output 05/02/17 05/02/17 05/03/17 06:59 18:59 06:59 Intake Total 1250.0 1300 Output Total 850 655 Balance 400.0 645 Weight 97.6 kg 97.6 kg Intake: IV 1250.0 1300 Piperacillin-Tazobactam 3 50.0 100 .375 gm In Dextrose/Water 1 50ml.bag @ 12.5 mls/hr IVPB Q8HR EL Rx#: [id number] Sodium Chloride 0.9% 1, 1200 1200 000 ml @ 100 mls/hr IV . Q10H EL Rx#:[id number] Output: Urine 850 655 Other: Voiding Method Indwelling Catheter Indwelling Catheter # Voids 0 - Labs CBC & Chem 7: 05/02/17 05:17 05/02/17 05:17 Labs: Abnormal Lab Results - Last 24 Hours (Table) 05/01/17 05/02/17 05/02/17 Range/Units 21:20 05:17 05:17 RBC 3.40 L (4.30-5.90) m/uL Hgb 12.9 L (13.0-17.5) gm/dL MCV 117.1 H (80.0-100.0) fL MCH 38.0 H (25.0-35.0) pg RDW 16.8 H (11.5-15.5) % Neutrophils # 8.2 H (1.3-7.7) k/uL Lymphocytes # 0.7 L (1.0-4.8) k/uL BUN 21 H (9-20) mg/dL Glucose 114 H (74-99) mg/dL POC Glucose (mg/dL) 105 H (75-99) mg/dL Calcium 8.2 L (8.4-10.2) mg/dL 05/02/17 05/02/17 05/02/17 Range/Units 07:09 12:19 17:48 RBC (4.30-5.90) m/uL Hgb (13.0-17.5) gm/dL MCV (80.0-100.0) fL MCH (25.0-35.0) pg RDW (11.5-15.5) % Neutrophils # (1.3-7.7) k/uL Lymphocytes # (1.0-4.8) k/uL BUN (9-20) mg/dL Glucose (74-99) mg/dL POC Glucose (mg/dL) 110 H 100 H 100 H (75-99) mg/dL Calcium (8.4-10.2) mg/dL Microbiology - Last 24 Hours (Table) 04/29/17 00:45 Blood Culture - Preliminary Blood No Growth after 72 hours
[2017-05-02] MEDS: 1: MVI, ADULT NO.4 WITH VIT K 10 ML, THIAMINE 100 MG, FOLIC ACID 1 MG in SODIUM CHLORIDE IV SCH ×4 (20:16)
[2017-05-02] MEDS ORDERED: SODIUM CHLORIDE 0.9% 1,000 ML BAG ONE (20:16)
[2017-05-02 20:47] LABS: Glucose,Whole Blood 89 mg/dL (75-99)
[2017-05-02] MEDS ORDERED: ALBUTEROL NEBULIZED 2.5 MG/3 ML INHALATION PRN (21:31)
[2017-05-03] MEDS: MORPHINE SULFATE 2 MG/ML SYRINGE IVP SCH ×6 (00:06→21:00)
[2017-05-03] MEDS: PIPERACILLIN-TAZOBACTAM 3.375 GM in DEXTROSE/WATER 1 50ML.BAG IVPB SCH ×3 (00:07→16:01)
[2017-05-03] MEDS: methylPREDNISolone SOD SUCCI 40 MG/ML 1 ML VIAL IV SCH ×3 (00:07→16:02)
[2017-05-03 00:20] LABS: Glucose,Whole Blood 100 mg/dL (75-99)
[2017-05-03] MEDS: LORazepam 2 MG/ML SYRINGE IV PRN ×2 (00:47→05:48)
[2017-05-03 05:37] LABS: Anisocytosis Slight; Basophils % (A) 0 %; CH 36.2; CHCM 31.3; Eosinophils % (A) 0 %; HCT 43.3 % (39.0-53.0); HDW 2.59; Hypochromasia Slight; Luc # (Auto) 0.07; Luc % (Auto) 1; Lymphocytes # (A) 0.8 k/uL (1.0-4.8); Lymphocytes % (A) 11 %; MCH 37.7 pg (25.0-35.0); MCHC 32.3 g/dL (31.0-37.0); MCV 116.7 fL (80.0-100.0); Macrocytosis Marked; Mean Platelet Volume 7.6; Monocytes # (A) 0.2 k/uL (0-1.0); Monocytes % (A) 3 %; Neutrophils # (A) 6.3 k/uL (1.3-7.7); Neutrophils % (A) 84 %; RBC 3.71 m/uL (4.30-5.90); RDW 16.5 % (11.5-15.5); WBC 7.5 k/uL (3.8-10.6); WBC (Perox) 7.16
[2017-05-03 05:53] LABS: Anion Gap 9 mmol/L; Blood Urea Nitrogen 21 mg/dL (9-20); Calcium 8.1 mg/dL (8.4-10.2); Carbon Dioxide 25 mmol/L (22-30); Chloride 107 mmol/L (98-107); Glucose 97 mg/dL (74-99); Magnesium 2.4 mg/dL (1.6-2.3); Non-African American GFR(MDRD) >60 (>60 ml/min/1.73 sqM); Phosphorous 3.3 mg/dL (2.5-4.5); Potassium 4.9 mmol/L (3.5-5.1); Sodium 141 mmol/L (137-145)
[2017-05-03 06:59] LABS: Polychromasia Present
[2017-05-03] MEDS: 1: MVI, ADULT NO.4 WITH VIT K 10 ML, THIAMINE 100 MG, FOLIC ACID 1 MG in SODIUM CHLORIDE IV SCH ×8 (07:04→18:32)
[2017-05-03] MEDS: TIOTROPIUM 18 MCG/PUFF INHALER INHALATION SCH (07:47)
[2017-05-03] MEDS: ALBUTEROL NEBULIZED 2.5 MG/3 ML INHALATION SCH ×3 (07:47→19:41)
[2017-05-03] MEDS: SYMBICORT 160-4.5 MCG INHALER INHALATION SCH ×2 (07:47→19:41)
[2017-05-03 07:48] LABS: Glucose,Whole Blood 100 mg/dL (75-99)
[2017-05-03] MEDS: INSULIN LISPRO (humaLOG) 300 UNIT/3 ML VIAL SQ SCH ×4 (08:03→22:02)
[2017-05-03] MEDS: FAMOTIDINE 20 MG/2 ML VIAL IV SCH ×2 (08:04→21:01)
[2017-05-03] MEDS: METHADONE 10 MG TAB PO SCH ×2 (08:04→21:01)
[2017-05-03] MEDS: HEPARIN SODIUM,PORCINE 5,000 UNIT/ML 1 ML VIAL SQ SCH ×2 (08:04→21:01)
--- NOTE | 2017-05-03 08:07 | XR ---
EXAMINATION TYPE: XR chest 1V portable DATE OF EXAM: 05/03/2017 HISTORY: Shortness of breath. COMPARISON: None. TECHNIQUE: Single view of the chest is submitted. FINDINGS: Demonstrated are scattered senescent parenchymal change. Persistent perihilar and basilar infiltrates. There is also cardiomegaly with pulmonary venous conges tion. Superimposed failure is difficult to exclude. Overall the appearance is slightly improved relat randy to the prior study. Hilar and mediastinal structures are within normal limits. Degenerative changes are seen of the dorsal spine. IMPRESSION: 1. Persistent perihilar and basilar infiltrates. There is also cardiomegaly with pulmonary venous co ngestion. Superimposed failure is difficult to exclude. Overall the appearance is slightly improved r elative to the prior study.
[2017-05-03] MEDS: ZIPRASIDONE 20 MG VIAL IM PRN ×2 (08:31→21:56)
[2017-05-03] MEDS ORDERED: FUROSEMIDE 10 MG/ML 4 ML VIAL IV STA (09:44)
--- NOTE | 2017-05-03 10:56 | P.PN ---
Subjective 04/29/17-This is a 61-year-old male who is being seen, evaluated and examined. This patient is well-known to our services. The patient came into the emergency room status post fall on 04/26/2017. Patient states he fell from his porch which was approximately 3-4 feet of a drop. He stated he was intoxicated with alcohol at the time. Patient stated that he landed on his right-sided chest. Patient denies and loss of consciousness or hitting his head. Patient initially did not have much pain but over the last 2 days the pain has increasingly gotten worse as well as he develop shortness of breath. The patient was taking naproxen at home without relief. Patient states that the pain is consistent moderate and with palpation it becomes more severe. Patient has developed increasing shortness of breath over the last few days as well as well as a productive cough with yellow sputum. She denies any hemoptysis. Patient is known to have history of COPD, patient states he does not use oxygen at home at this time however he has used it in the past.. Patient did undergo a CT of the chest abdomen and pelvis which revealed a small right pneumo thorax , acute nondisplaced fractures right posterior seventh through ninth ribs. Some old healing fractures right posterior 10th rib 11th ribs, airspace opacity in the dependent lung bases consistent with atelectasis, possible superimposed right basilar pulmonary contusion. Upon examination the patient's resting up in bed on 2 L of supplemental oxygen. He states he continues to have rib pain with coughing. He is unable to bring up secretions due to pain. Patient states his current medications are effective for pain relief. He denies any fevers, chills, or hemoptysis, nausea, vomiting or diarrhea. 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 Patient's SpO2 was 86% on 4 L of supplemental oxygen. The patient's CBG was 118 patient was difficult to arouse. An 18 was called and stat ABGs were drawn and came back critical with a pH of 7.20 pCO2 of 71 and HCO3 26 and pO2 97% the patient was ultimately transferred over to the intensive care unit and put on BiPAP. A stat chest x-ray did show patchy airspace disease seen throughout both lungs, left greater than the right. Of note the patient also was suctioned and chewing tobacco was obtained the patient also vomited up a moderate amount of emesis, mixed with food articles as well as chewing tobacco. Apparently overnight the patient was found to be using chewing tobacco and it was removed from the patient's room and he was educated on the policy stating he could not have chewing tobacco in the hospital. Upon examination the patient is currently on BiPAP and is lethargic, his oxygen saturations have improved with the BiPAP, he does open his eyes spontaneously. The patient does not have any emergency contacts or family members that we are aware of to update we will put on social work to obtain a legal guardian for the patient. 05/01/17- this morning the patient is much more awake and alert. Patient was on BiPAP throughout the night and this morning. BiPAP was removed approximately 8 AM and the patient was transitioned to 10 L high flow nasal cannula with oxygen saturations in the mid 90s. Chest x-ray from this morning was reviewed and shows a mildly increased right infiltrate. Patient is on methadone and Xanax at home and he is requesting we transition to have those put back on his current meds. Education has been provided in regards to these medications and his respiratory status. We will start with methadone and hold on the Xanax at this time. She will also undergo a swallow eval before advancing his diet. 05/02/17 patient seen and evaluated and examined during the rounds in ICU he remains he remains intermittently anxious and agitated OxyIR and respiratory acidosis patient has been resumed on BiPAP currently patient is on IPAP of 15 and EPAP of 5 with 50% oxygen conceive a protocol as well as Haldol as needed and methadone has been resumed and the patient appears to be going through DTs as well, patient is being started on the thiamine and folic acid MVI him a care plan discussed with the primary service and nursing staff at length laboratory data reviewed chest x-ray reviewed as well, critical care time spent 35 minutes 05/03/17, Patient seen and examined in the ICU care plan discussed with the primary service and ICU staff at length patient remains intermittently agitated has been on ciwa protocol overnight. Overnight he required 8 mg of Ativan, patient overall appears slightly calm but is still undergoing active DTs, patient remains on BiPAP 15/5 with 50% oxygen he has been off of BiPAP with high flow oxygen about 8-10 L every 2-3 hour half an hour or so eating some but appetite has been poor he has been noted to have generalized swelling and third spacing and mild anasarca, x-ray from yesterday and laboratory data from today has been reviewed Objective - Vital Signs Vital signs: Vital Signs Temp 97.4 F L 05/03/17 08:00 Pulse 93 05/03/17 09:00 Resp 13 05/03/17 09:00 BP 152/89 05/03/17 09:00 Pulse Ox 97 05/03/17 09:00 Intake & Output 05/02/17 05/03/17 05/03/17 18:59 06:59 18:59 Intake Total 1300 1610.0 350 Output Total 655 690 215 Balance 645 920.0 135 Weight 97.6 kg 97.2 kg 97.2 kg Intake: IV 1300 1200 350 Mvi, Adult No.4 with Vit 1000 100 K 10 ml Thiamine 100 mg Folic Acid 1 mg In Sodium Chloride 0.9% 1,000 ml @ 100 mls/hr IV .BY DURATION EL Rx#: [id number] Piperacillin-Tazobactam 3 100 50 .375 gm In Dextrose/Water 1 50ml.bag @ 12.5 mls/hr IVPB Q8HR EL Rx#: [id number] Sodium Chloride 0.9% 1, 1200 200 200 000 ml @ 100 mls/hr IV . Q10H EL Rx#:[id number] Intake, IV Titration 50.0 Amount Piperacillin-Tazobactam 3 50.0 .375 gm In Dextrose/Water 1 50ml.bag @ 12.5 mls/hr IVPB Q8HR EL Rx#: [id number] Oral 360 Output: Urine 655 690 215 Other: Voiding Method Indwelling Catheter Indwelling Catheter Indwelling Catheter # Voids 0 0 - Exam GENERAL EXAM: Remain somnolent has been placed on BiPAP, intermittently as dictated above, no apparent distress HEAD: Normocephalic. EYES: Normal reaction of pupils, equal size. NOSE: Clear with pink turbinates. THROAT: No erythema or exudates. NECK: No masses, no JVD. CHEST: No chest wall deformity. LUNGS: Patient noted to have coarse breath sounds with scattered rhonchi and faint end expiratory wheezes and bibasilar crackles are present. Patient also known to have chest wall tenderness on the right side. CVS: S1 and S2 normal with no audible mumurs, regular rhythm. ABDOMEN: No hepatosplenomegaly, normal bowel sounds, no guarding or rigidity. Distended but soft EXTREMITIES: Trace edema noted, all over, pedal pulses palpable. CENTRAL NERVOUS SYSTEM: No focal deficits, tone is normal in all 4 extremities. Patient is somnolent and lethargic but arousable to verbal command moving all 4 extremity intermittently agitated requiring restraints as he has pulled IVs risk of falls, fall program and precautions are in effect - Labs CBC & Chem 7: 05/03/17 04:56 05/03/17 04:56 Labs: Abnormal Lab Results - Last 24 Hours (Table) 05/02/17 05/02/17 05/03/17 Range/Units 12:19 17:48 00:18 RBC (4.30-5.90) m/uL MCV (80.0-100.0) fL MCH (25.0-35.0) pg RDW (11.5-15.5) % Lymphocytes # (1.0-4.8) k/uL APTT (22.0-30.0) sec BUN (9-20) mg/dL POC Glucose (mg/dL) 100 H 100 H 100 H (75-99) mg/dL Calcium (8.4-10.2) mg/dL Magnesium (1.6-2.3) mg/dL 05/03/17 05/03/17 05/03/17 Range/Units 04:56 04:56 04:56 RBC 3.71 L (4.30-5.90) m/uL MCV 116.7 H (80.0-100.0) fL MCH 37.7 H (25.0-35.0) pg RDW 16.5 H (11.5-15.5) % Lymphocytes # 0.8 L (1.0-4.8) k/uL APTT 21.3 L (22.0-30.0) sec BUN 21 H (9-20) mg/dL POC Glucose (mg/dL) (75-99) mg/dL Calcium 8.1 L (8.4-10.2) mg/dL Magnesium 2.4 H (1.6-2.3) mg/dL 05/03/17 Range/Units 07:45 RBC (4.30-5.90) m/uL MCV (80.0-100.0) fL MCH (25.0-35.0) pg RDW (11.5-15.5) % Lymphocytes # (1.0-4.8) k/uL APTT (22.0-30.0) sec BUN (9-20) mg/dL POC Glucose (mg/dL) 100 H (75-99) mg/dL Calcium (8.4-10.2) mg/dL Magnesium (1.6-2.3) mg/dL Microbiology - Last 24 Hours (Table) 04/29/17 00:45 Blood Culture - Preliminary Blood No Growth after 96 hours Assessment and Plan Plan: Assessment Left lower lobe aspiration pneumonia likely likely mixed bacterial and gram- negative Increased lethargy, likely related to DTs, and alcohol withdrawal Status post fall, hypoxic hypercapnic respiratory failure Small right sided pneumothorax, traumatic however remains stable Multiple right-sided rib fractures Acute on chronic hypoxic respiratory failure Severe COPD Chronic persistent moderate asthma with a component of ALLERGIC asthma Nicotine dependence Plan Medications have been reviewed and will be continued as ordered. We will reorder the home dose of methadone. Swallow eval to be completed by nurse before diet can be advanced. He has been placed on IV Solu-Medrol 40 every 8 hours. We will continue to monitor the pneumothorax which seems to be improved however newly developed left lower lobe aspiration pneumonia is present. Daily chest xrays. We will obtain a CT of the brain. Initiate and encourage incentive spirometer. Continue with pulmonary hygiene, coughing and deep breathing exercises, and supportive care. Supplemental oxygen to maintain oxygen saturations of 92% or better. Continue nebulizer treatments. GI and DVT prophylaxis. 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 We will continue to do BiPAP alternating with high flow oxygen , patient will be given IV furosemide patient came back from [place] are being replaced, We will continue to monitor labs/results and adjust treatment as necessary. We'll maintain on BiPAP use oxygen as needed abdomen ICU Further recommendations pending. Critical care time spent 35 minutes
[2017-05-03 12:06] LABS: Glucose,Whole Blood 104 mg/dL (75-99)
--- NOTE | 2017-05-03 14:52 | P.PN ---
Subjective s/p fall and RT sided rib fractures Mr. Craig is a 61-year-old male with a known history of asthma/COPD EtOH abuse, chronic pain and liver disease came to the ER status post fall on 04/26/2017. Patient was intoxicated with all call and had a mechanical fall. Patient landed on the right side of his chest. Denied any headache or head injury or loss of consciousness. Patient has been increasing short of breath and pain with deep breathing. Patient came to the hospital. Patient has been having chronic cough with whitish to yellow sputum. No increasing in quantity of sputum or frequency. Patient had CT of the chest abdomen and pelvis was done in the year showed a small right pneumothorax, acute nondisplaced fractures right posterior seventh through ninth ribs. Patient also had right posterior 10th rib and 11th rib. An air space opacity in the dependent lung bases consistent with atelectasis and superimposed possible right basilar pulmonary contusion.. Currently patient is complaining of pain with coughing and deep breathing. No fever or chills. No nausea vomiting or abdominal Pain. On 04/30/17 - Pt became diaphoretic, pale, lethargic and his O2 sat dropped to 86% on 4 L of supplemental oxygen. ABGs were drawn showed - pH of 7.20 pCO2 of 71 and HCO3 26 and pO2 97% the patient was placed on BiPAP and transferred over to the intensive care unit . Apparently the pt was found chewing tobacco and also threw up once and eventually went into respiratory distress. A stat chest x-ray did show patchy airspace disease seen throughout both lungs. So he might have aspirated. on 05/01/17 Pt. is saturating well on NC, Pt. is agitated and is in DTs. no fever/chills Complete ROS could not be done as the pt is on BiPAP. As per nursing staff report , no other active issues. on 05/02/17 pt is lethargic 05/03/2017 Patient is doing a little bit better Stable on the current medication regimen Patient is only on 5 L supplement oxygen - Exam HEENT: Normocephalic. Neck is supple. Pupils reactive. Nostrils clear. Oral cavity is moist. Ears reveal no drainage. Neck reveals no JVD, carotid bruits, or thyromegaly. CHEST EXAMINATION: Trachea is central. Decreased air entry right lower lobes mainly right side and minimal crackles.Coarse breath sounds in all lung drake. Right lower rib cage tenderness and pain no crepitus heard. CARDIAC: Normal S1, S2 with no gallops. No murmurs ABDOMEN: Soft. Bowel sounds normal. No organomegaly. No abdominal bruits. Extremities: reveal no edema. No clubbing or cyanosis Neurologically alert to self Skin: No rash or skin lesions. Musculoskeletal: No joint swelling or deformity. Normal range of motion. Assessment and Plan Plan: 1. Delirium Tremens, encephalopathy, both metabolic and toxic 1.Acute Hypoxic respiratory failure- due to Aspiration 1 Status post mechanical fall along with EtOH intoxication 2 Small right-sided pneumothorax 3 Right-sided posterior seventh through ninth rib fractures nondisplaced 4 acute on chronic hypoxic respiratory failure 5 COPD with mild exacerbation 6 history of moderately chronic persistent asthma with ALLERGY component 7 EtOH abuse 8 Elevated lactic acidosis due to volume depletion. 9 DVT prophylaxis 10 Mildly elevated liver enzymes 11 Macrocytosis PLAN: Slightly improved continue with the Geodon, Ativan when necessary, morphine [id number] Once patient tolerates oral intake we'll start the patient back on methadone Continue full ICU supportive Continue antibiotic therapy Objective - Vital Signs Vital signs: Vital Signs Temp 97.4 F L 05/03/17 08:00 Pulse 92 05/03/17 13:53 Resp 13 05/03/17 13:00 BP 151/84 05/03/17 13:00 Pulse Ox 98 05/03/17 13:38 Intake & Output 05/02/17 05/03/17 05/03/17 18:59 06:59 18:59 Intake Total 1300 1610.0 750 Output Total 737 864 3640 Balance 645 920.0 -1215 Weight 97.6 kg 97.2 kg 97.2 kg Intake: IV 1300 1200 750 Mvi, Adult No.4 with Vit 1000 100 K 10 ml Thiamine 100 mg Folic Acid 1 mg In Sodium Chloride 0.9% 1,000 ml @ 100 mls/hr IV .BY DURATION EL Rx#: [id number] Piperacillin-Tazobactam 3 100 50 .375 gm In Dextrose/Water 1 50ml.bag @ 12.5 mls/hr IVPB Q8HR EL Rx#: [id number] Sodium Chloride 0.9% 1, 1200 200 600 000 ml @ 100 mls/hr IV . Q10H EL Rx#:[id number] Intake, IV Titration 50.0 Amount Piperacillin-Tazobactam 3 50.0 .375 gm In Dextrose/Water 1 50ml.bag @ 12.5 mls/hr IVPB Q8HR [facility] Rx#: [id number] Oral 360 Output: Urine 464 930 9107 Other: Voiding Method Indwelling Catheter Indwelling Catheter Indwelling Catheter # Voids 0 0 - Labs CBC & Chem 7: 05/03/17 04:56 05/03/17 04:56 Labs: Abnormal Lab Results - Last 24 Hours (Table) 05/02/17 05/03/17 05/03/17 Range/Units 17:48 00:18 04:56 RBC 3.71 L (4.30-5.90) m/uL MCV 116.7 H (80.0-100.0) fL MCH 37.7 H (25.0-35.0) pg RDW 16.5 H (11.5-15.5) % Lymphocytes # 0.8 L (1.0-4.8) k/uL APTT (22.0-30.0) sec BUN (9-20) mg/dL POC Glucose (mg/dL) 100 H 100 H (75-99) mg/dL Calcium (8.4-10.2) mg/dL Magnesium (1.6-2.3) mg/dL 05/03/17 05/03/17 05/03/17 Range/Units 04:56 04:56 07:45 RBC (4.30-5.90) m/uL MCV (80.0-100.0) fL MCH (25.0-35.0) pg RDW (11.5-15.5) % Lymphocytes # (1.0-4.8) k/uL APTT 21.3 L (22.0-30.0) sec BUN 21 H (9-20) mg/dL POC Glucose (mg/dL) 100 H (75-99) mg/dL Calcium 8.1 L (8.4-10.2) mg/dL Magnesium 2.4 H (1.6-2.3) mg/dL 05/03/17 Range/Units 12:05 RBC (4.30-5.90) m/uL MCV (80.0-100.0) fL MCH (25.0-35.0) pg RDW (11.5-15.5) % Lymphocytes # (1.0-4.8) k/uL APTT (22.0-30.0) sec BUN (9-20) mg/dL POC Glucose (mg/dL) 104 H (75-99) mg/dL Calcium (8.4-10.2) mg/dL Magnesium (1.6-2.3) mg/dL Microbiology - Last 24 Hours (Table) 04/29/17 00:45 Blood Culture - Preliminary Blood No Growth after 96 hours
[2017-05-03 18:14] LABS: Glucose,Whole Blood 94 mg/dL (75-99)
[2017-05-04] MEDS: MORPHINE SULFATE 2 MG/ML SYRINGE IVP SCH ×6 (01:00→21:57)
[2017-05-04] MEDS: PIPERACILLIN-TAZOBACTAM 3.375 GM in DEXTROSE/WATER 1 50ML.BAG IVPB SCH ×3 (01:03→16:21)
[2017-05-04] MEDS: methylPREDNISolone SOD SUCCI 40 MG/ML 1 ML VIAL IV SCH ×3 (01:07→16:21)
[2017-05-04 04:51] LABS: Anion Gap 9 mmol/L; Calcium 8.3 mg/dL (8.4-10.2); Carbon Dioxide 34 mmol/L (22-30); Chloride 101 mmol/L (98-107); Glucose 111 mg/dL (74-99); Non-African American GFR(MDRD) >60 (>60 ml/min/1.73 sqM); Sodium 144 mmol/L (137-145); Total Bilirubin 0.9 mg/dL (0.2-1.3); Total Protein 6.3 g/dL (6.3-8.2)
[2017-05-04 05:02] LABS: ALT 56 U/L (21-72); AST 53 U/L (17-59); Alkaline Phosphatase 40 U/L (38-126); Blood Urea Nitrogen 25 mg/dL (9-20); Magnesium 2.3 mg/dL (1.6-2.3); Potassium 4.3 mmol/L (3.5-5.1)
[2017-05-04 05:12] LABS: Anisocytosis Slight; Basophils % (A) 0 %; CHCM 33.4; Eosinophils # (A) 0.1 k/uL (0-0.7); Eosinophils % (A) 1 %; HCT 44.4 % (39.0-53.0); Luc # (Auto) 0.07; Luc % (Auto) 1; Lymphocytes # (A) 0.6 k/uL (1.0-4.8); Lymphocytes % (A) 9 %; MCH 37.7 pg (25.0-35.0); MCHC 33.8 g/dL (31.0-37.0); Macrocytosis Marked; Mean Platelet Volume 8.1; Monocytes # (A) 0.3 k/uL (0-1.0); Monocytes % (A) 4 %; Neutrophils # (A) 6.2 k/uL (1.3-7.7); Neutrophils % (A) 85 %; RBC 3.98 m/uL (4.30-5.90); RDW 16.3 % (11.5-15.5); WBC 7.3 k/uL (3.8-10.6); WBC (Perox) 7.44
[2017-05-04 05:13] LABS: MCV 111.7 fL (80.0-100.0)
--- NOTE | 2017-05-04 07:04 | XR ---
EXAMINATION TYPE: XR chest 1V DATE OF EXAM: 05/04/2017 HISTORY: pneumonia. REFERENCE: Previous study dated 05/03/2017. FINDINGS: The heart remains enlarged. Pulmonary vasculature has improved. Interstitial change has imp roved. There continues to be some left basilar airspace disease. IMPRESSION: IMPROVING CHANGES OF CONGESTIVE HEART FAILURE.
[2017-05-04 07:22] LABS: Manual Review Performed
[2017-05-04 07:41] LABS: Glucose,Whole Blood 103 mg/dL (75-99)
[2017-05-04] MEDS: ALBUTEROL NEBULIZED 2.5 MG/3 ML INHALATION SCH ×3 (07:59→19:19)
[2017-05-04] MEDS: SYMBICORT 160-4.5 MCG INHALER INHALATION SCH ×2 (07:59→19:19)
[2017-05-04] MEDS: TIOTROPIUM 18 MCG/PUFF INHALER INHALATION SCH (08:00)
[2017-05-04] MEDS: INSULIN LISPRO (humaLOG) 300 UNIT/3 ML VIAL SQ SCH ×4 (08:50→22:01)
[2017-05-04] MEDS: METHADONE 10 MG TAB PO SCH ×2 (08:51→22:13)
[2017-05-04] MEDS: FAMOTIDINE 20 MG/2 ML VIAL IV SCH ×2 (08:52→21:59)
[2017-05-04] MEDS: HEPARIN SODIUM,PORCINE 5,000 UNIT/ML 1 ML VIAL SQ SCH ×2 (08:52→21:59)
[2017-05-04] MEDS ORDERED: THIAMINE 100 MG/ML 2 ML VIAL IM SCH (09:00)
[2017-05-04 12:26] LABS: Glucose,Whole Blood 103 mg/dL (75-99)
[2017-05-04] MEDS ORDERED: SODIUM CHLORIDE 0.9% 1,000 ML with MVI, ADULT NO.4 WITH VIT K 10 ML, THIAMINE 100 MG, F... IV ONE ×4 (12:30)
--- NOTE | 2017-05-04 13:09 | P.PN ---
Subjective 04/29/17-This is a 61-year-old male who is being seen, evaluated and examined. This patient is well-known to our services. The patient came into the emergency room status post fall on 04/26/2017. Patient states he fell from his porch which was approximately 3-4 feet of a drop. He stated he was intoxicated with alcohol at the time. Patient stated that he landed on his right-sided chest. Patient denies and loss of consciousness or hitting his head. Patient initially did not have much pain but over the last 2 days the pain has increasingly gotten worse as well as he develop shortness of breath. The patient was taking naproxen at home without relief. Patient states that the pain is consistent moderate and with palpation it becomes more severe. Patient has developed increasing shortness of breath over the last few days as well as well as a productive cough with yellow sputum. She denies any hemoptysis. Patient is known to have history of COPD, patient states he does not use oxygen at home at this time however he has used it in the past.. Patient did undergo a CT of the chest abdomen and pelvis which revealed a small right pneumothorax, acute nondisplaced fractures right posterior seventh through ninth ribs. Some old healing fractures right posterior 10th rib 11th ribs, airspace opacity in the dependent lung bases consistent with atelectasis, possible superimposed right basilar pulmonary contusion. Upon examination the patient's resting up in bed on 2 L of supplemental oxygen. He states he continues to have rib pain with coughing. He is unable to bring up secretions due to pain. Patient states his current medications are effective for pain relief. He denies any fevers, chills, or hemoptysis, nausea, vomiting or diarrhea. 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 Patient's SpO2 was 86% on 4 L of supplemental oxygen. The patient's CBG was 118 patient was difficult to arouse. An 18 was called and stat ABGs were drawn and came back critical with a pH of 7.20 pCO2 of 71 and HCO3 26 and pO2 97% the patient was ultimately transferred over to the intensive care unit and put on BiPAP. A stat chest x-ray did show patchy airspace disease seen throughout both lungs, left greater than the right. Of note the patient also was suctioned and chewing tobacco was obtained the patient also vomited up a moderate amount of emesis, mixed with food articles as well as chewing tobacco. Apparently overnight the patient was found to be using chewing tobacco and it was removed from the patient's room and he was educated on the policy stating he could not have chewing tobacco in the hospital. Upon examination the patient is currently on BiPAP and is lethargic, his oxygen saturations have improved with the BiPAP, he does open his eyes spontaneously. The patient does not have any emergency contacts or family members that we are aware of to update we will put on social work to obtain a legal guardian for the patient. 05/01/17- this morning the patient is much more awake and alert. Patient was on BiPAP throughout the night and this morning. BiPAP was removed approximately 8 AM and the patient was transitioned to 10 L high flow nasal cannula with oxygen saturations in the mid 90s. Chest x-ray from this morning was reviewed and shows a mildly increased right infiltrate. Patient is on methadone and Xanax at home and he is requesting we transition to have those put back on his current meds. Education has been provided in regards to these medications and his respiratory status. We will start with methadone and hold on the Xanax at this time. She will also undergo a swallow eval before advancing his diet. 05/02/17 patient seen and evaluated and examined during the rounds in ICU he remains he remains intermittently anxious and agitated OxyIR and respiratory acidosis patient has been resumed on BiPAP currently patient is on IPAP of 15 and EPAP of 5 with 50% oxygen conceive a protocol as well as Haldol as needed and methadone has been resumed and the patient appears to be going through DTs as well, patient is being started on the thiamine and folic acid MVI him a care plan discussed with the primary service and nursing staff at length laboratory data reviewed chest x-ray reviewed as well, critical care time spent 35 minutes 05/03/17, Patient seen and examined in the ICU care plan discussed with the primary service and ICU staff at length patient remains intermittently agitated has been on ciwa protocol overnight. Overnight he required 8 mg of Ativan, patient overall appears slightly calm but is still undergoing active DTs, patient remains on BiPAP 15/5 with 50% oxygen he has been off of BiPAP with high flow oxygen about 8-10 L every 2-3 hour half an hour or so eating some but appetite has been poor he has been noted to have generalized swelling and third spacing and mild anasarca, x-ray from yesterday and laboratory data from today has been reviewed 05/04/17-patient continues on CIWA protocol, however has required less Ativan today than previously. Patient overall appears slightly calm but still has intermittent agitation and is undergoing active DTs. Patient continued on BiPAP 15/5 with 50% of oxygen overnight. Early the patient is on 5 L of supplemental oxygen via nasal cannula. He is noted to have less swelling/third spacing today than previous. Chest x-ray has been reviewed and shows improving CHF. Patient also did receive one-time dose of Lasix yesterday, with good effects. She continues to be short of breath with exertion. Denies any cough or congestion today. Objective - Vital Signs Vital signs: Vital Signs Temp 97.1 F L 05/04/17 08:00 Pulse 94 05/04/17 13:00 Resp 26 H 05/04/17 12:00 BP 137/88 05/04/17 12:00 Pulse Ox 94 L 05/04/17 12:00 Intake & Output 05/03/17 05/04/17 05/04/17 18:59 06:59 18:59 Intake Total 1145 300 200 Output Total 3315 1575 610 Balance -1662 -3309 -410 Weight 97.2 kg 90.1 kg Intake: IV 1145 300 175 Mvi, Adult No.4 with Vit 445 300 125 K 10 ml Thiamine 100 mg Folic Acid 1 mg In Sodium Chloride 0.9% 1,000 ml @ 100 mls/hr IV .BY DURATION EL Rx#: [id number] Piperacillin-Tazobactam 3 100 50 .375 gm In Dextrose/Water 1 50ml.bag @ 12.5 mls/hr IVPB Q8HR EL Rx#: [id number] Sodium Chloride 0.9% 1, 600 000 ml @ 100 mls/hr IV . Q10H EL Rx#:[id number] Intake, IV Titration 25 Amount Sodium Chloride 0.9% 1, 25 000 ml @ 25 mls/hr IV . Q24H ONE with Mvi, Adult No.4 with Vit K 10 ml with Thiamine 100 mg with Folic Acid 1 mg Rx#: [id number] Output: Urine 3315 1575 610 Other: Voiding Method Indwelling Catheter Indwelling Catheter Indwelling Catheter # Voids 0 - Exam GENERAL EXAM: Awake, no apparent distress HEAD: Normocephalic. EYES: Normal reaction of pupils, equal size. NOSE: Clear with pink turbinates. THROAT: No erythema or exudates. NECK: No masses, no JVD. CHEST: No chest wall deformity. LUNGS: Patient noted to have coarse breath sounds with scattered rhonchi and faint end expiratory wheezes. Patient also known to have chest wall tenderness on the right side. CVS: S1 and S2 normal with no audible mumurs, regular rhythm. ABDOMEN: No hepatosplenomegaly, normal bowel sounds, no guarding or rigidity. EXTREMITIES: No edema noted, pedal pulses palpable. CENTRAL NERVOUS SYSTEM: No focal deficits, tone is normal in all 4 extremities. - Labs CBC & Chem 7: 05/04/17 04:08 05/04/17 04:08 Labs: Abnormal Lab Results - Last 24 Hours (Table) 05/04/17 05/04/17 05/04/17 Range/Units 04:08 04:08 07:40 RBC 3.98 L (4.30-5.90) m/uL MCV 111.7 H D (80.0-100.0) fL MCH 37.7 H (25.0-35.0) pg RDW 16.3 H (11.5-15.5) % Lymphocytes # 0.6 L (1.0-4.8) k/uL Carbon Dioxide 34 H (22-30) mmol/L BUN 25 H (9-20) mg/dL Glucose 111 H (74-99) mg/dL POC Glucose (mg/dL) 103 H (75-99) mg/dL Calcium 8.3 L (8.4-10.2) mg/dL Albumin 3.4 L (3.5-5.0) g/dL 05/04/17 Range/Units 12:22 RBC (4.30-5.90) m/uL MCV (80.0-100.0) fL MCH (25.0-35.0) pg RDW (11.5-15.5) % Lymphocytes # (1.0-4.8) k/uL Carbon Dioxide (22-30) mmol/L BUN (9-20) mg/dL Glucose (74-99) mg/dL POC Glucose (mg/dL) 103 H (75-99) mg/dL Calcium (8.4-10.2) mg/dL Albumin (3.5-5.0) g/dL Microbiology - Last 24 Hours (Table) 04/29/17 00:45 Blood Culture - Preliminary Blood No Growth after 120 hours Assessment and Plan Plan: Assessment Left lower lobe aspiration pneumonia likely related to chewing tobacco Increased lethargy Status post fall Small right sided pneumothorax Multiple right-sided rib fractures Acute on chronic hypoxic hypercapnic respiratory failure COPD Chronic persistent moderate asthma with a component of ALLERGIC asthma Nicotine dependence Plan Medications have been reviewed and will be continued as ordered. He has been placed on IV Solu-Medrol 40 every 8 hours. We will continue to monitor the pneumothorax which seems to be improved however newly developed left lower lobe aspiration pneumonia is present. Daily chest xrays. Initiate and encourage incentive spirometer. Continue with pulmonary hygiene, coughing and deep breathing exercises, and supportive care. Supplemental oxygen to maintain oxygen saturations of 92% or better. BiPAP Continue nebulizer treatments. GI and DVT prophylaxis. optical worker updated on patient's condition possibly will need legal guardian. We will continue to monitor labs/results and adjust treatment as necessary. Further recommendations pending. I performed an examination of the patient and discussed their management with the nurse practitioner. I have reviewed the nurse practitioner's note and agree with the documented findings and plan of care.
[2017-05-04 17:14] LABS: Glucose,Whole Blood 112 mg/dL (75-99)
--- NOTE | 2017-05-04 17:24 | P.PN ---
Subjective s/p fall and RT sided rib fractures Mr. Craig is a 61-year-old male with a known history of asthma/COPD EtOH abuse, chronic pain and liver disease came to the ER status post fall on 04/26/2017. Patient was intoxicated with all call and had a mechanical fall. Patient landed on the right side of his chest. Denied any headache or head injury or loss of consciousness. Patient has been increasing short of breath and pain with deep breathing. Patient came to the hospital. Patient has been having chronic cough with whitish to yellow sputum. No increasing in quantity of sputum or frequency. Patient had CT of the chest abdomen and pelvis was done in the year showed a small right pneumothorax, acute nondisplaced fractures right posterior seventh through ninth ribs. Patient also had right posterior 10th rib and 11th rib. An air space opacity in the dependent lung bases consistent with atelectasis and superimposed possible right basilar pulmonary contusion.. Currently patient is complaining of pain with coughing and deep breathing. No fever or chills. No nausea vomiting or abdominal Pain. On 04/30/17 - Pt became diaphoretic, pale, lethargic and his O2 sat dropped to 86% on 4 L of supplemental oxygen. ABGs were drawn showed - pH of 7.20 pCO2 of 71 and HCO3 26 and pO2 97% the patient was placed on BiPAP and transferred over to the intensive care unit . Apparently the pt was found chewing tobacco and also threw up once and eventually went into respiratory distress. A stat chest x-ray did show patchy airspace disease seen throughout both lungs. So he might have aspirated. on 05/01/17 Pt. is saturating well on NC, Pt. is agitated and is in DTs. no fever/chills Complete ROS could not be done as the pt is on BiPAP. As per nursing staff report , no other active issues. on 05/02/17 pt is lethargic 05/03/2017 Patient is doing a little bit better Stable on the current medication regimen Patient is only on 5 L supplement oxygen 05/04/17 on 4 l o2 more pleasant today however confused passed his swallow eval - Exam HEENT: Normocephalic. Neck is supple. Pupils reactive. Nostrils clear. Oral cavity is moist. Ears reveal no drainage. Neck reveals no JVD, carotid bruits, or thyromegaly. CHEST EXAMINATION: Trachea is central. Decreased air entry right lower lobes mainly right side and minimal crackles.Coarse breath sounds in all lung drake. Right lower rib cage tenderness and pain no crepitus heard. CARDIAC: Normal S1, S2 with no gallops. No murmurs ABDOMEN: Soft. Bowel sounds normal. No organomegaly. No abdominal bruits. Extremities: reveal no edema. No clubbing or cyanosis Neurologically alert to self Skin: No rash or skin lesions. Musculoskeletal: No joint swelling or deformity. Normal range of motion. Assessment and Plan Plan: 1. Delirium Tremens, encephalopathy, both metabolic and toxic 1.Acute Hypoxic respiratory failure- due to Aspiration 1 Status post mechanical fall along with EtOH intoxication 2 Small right-sided pneumothorax 3 Right-sided posterior seventh through ninth rib fractures nondisplaced 4 acute on chronic hypoxic respiratory failure 5 COPD with mild exacerbation 6 history of moderately chronic persistent asthma with ALLERGY component 7 EtOH abuse 8 Elevated lactic acidosis due to volume depletion. 9 DVT prophylaxis 10 Mildly elevated liver enzymes 11 Macrocytosis PLAN: Slightly improved continue with the Mely, Ativan when necessary, morphine [id number] Once patient tolerates oral intake we'll start the patient back on methadone swallow eval marv repeat cxr marv Continue full ICU supportive care Continue antibiotic therapy Objective - Vital Signs Vital signs: Vital Signs Temp 97.9 F 05/04/17 13:00 Pulse 58 L 05/04/17 16:00 Resp 16 05/04/17 16:00 BP 141/85 05/04/17 16:00 Pulse Ox 92 L 05/04/17 16:00 Intake & Output 05/03/17 05/04/17 05/04/17 18:59 06:59 18:59 Intake Total 1145 300 300 Output Total 3315 8415 1185 Balance -5880 -1275 -885 Weight 97.2 kg 90.1 kg Intake: IV 1145 300 175 Mvi, Adult No.4 with Vit 445 300 125 K 10 ml Thiamine 100 mg Folic Acid 1 mg In Sodium Chloride 0.9% 1,000 ml @ 100 mls/hr IV .BY DURATION EL Rx#: [id number] Piperacillin-Tazobactam 3 100 50 .375 gm In Dextrose/Water 1 50ml.bag @ 12.5 mls/hr IVPB Q8HR EL Rx#: [id number] Sodium Chloride 0.9% 1, 600 000 ml @ 100 mls/hr IV . Q10H [facility] Rx#:[id number] Intake, IV Titration 125 Amount Sodium Chloride 0.9% 1, 125 000 ml @ 25 mls/hr IV . Q24H ONE with Mvi, Adult No.4 with Vit K 10 ml with Thiamine 100 mg with Folic Acid 1 mg Rx#: [id number] Output: Urine 3315 1575 1185 Other: Voiding Method Indwelling Catheter Indwelling Catheter Indwelling Catheter # Voids 0 - Labs CBC & Chem 7: 05/04/17 04:08 05/04/17 04:08 Labs: Abnormal Lab Results - Last 24 Hours (Table) 05/04/17 05/04/17 05/04/17 Range/Units 04:08 04:08 07:40 RBC 3.98 L (4.30-5.90) m/uL MCV 111.7 H D (80.0-100.0) fL MCH 37.7 H (25.0-35.0) pg RDW 16.3 H (11.5-15.5) % Lymphocytes # 0.6 L (1.0-4.8) k/uL Carbon Dioxide 34 H (22-30) mmol/L BUN 25 H (9-20) mg/dL Glucose 111 H (74-99) mg/dL POC Glucose (mg/dL) 103 H (75-99) mg/dL Calcium 8.3 L (8.4-10.2) mg/dL Albumin 3.4 L (3.5-5.0) g/dL 05/04/17 05/04/17 Range/Units 12:22 17:12 RBC (4.30-5.90) m/uL MCV (80.0-100.0) fL MCH (25.0-35.0) pg RDW (11.5-15.5) % Lymphocytes # (1.0-4.8) k/uL Carbon Dioxide (22-30) mmol/L BUN (9-20) mg/dL Glucose (74-99) mg/dL POC Glucose (mg/dL) 103 H 112 H (75-99) mg/dL Calcium (8.4-10.2) mg/dL Albumin (3.5-5.0) g/dL Microbiology - Last 24 Hours (Table) 04/29/17 00:45 Blood Culture - Preliminary Blood No Growth after 120 hours
[2017-05-04] MEDS: amLODIPine 2.5 MG TAB PO SCH ×2 (18:26→22:14)
[2017-05-04] MEDS: LORazepam 2 MG/ML SYRINGE IV PRN ×2 (18:52→23:00)
[2017-05-04] MEDS: ZIPRASIDONE 20 MG VIAL IM SCH (21:59)
[2017-05-04 22:04] LABS: Glucose,Whole Blood 126 mg/dL (75-99)
[2017-05-05] MEDS: MORPHINE SULFATE 2 MG/ML SYRINGE IVP SCH ×3 (00:10→08:37)
[2017-05-05] MEDS: PIPERACILLIN-TAZOBACTAM 3.375 GM in DEXTROSE/WATER 1 50ML.BAG IVPB SCH ×3 (00:37→15:11)
[2017-05-05] MEDS: LORazepam 2 MG/ML SYRINGE IV PRN ×4 (00:37→13:30)
[2017-05-05] MEDS: methylPREDNISolone SOD SUCCI 40 MG/ML 1 ML VIAL IV SCH ×3 (00:37→15:13)
[2017-05-05 05:43] LABS: Anisocytosis Slight; Basophils % (A) 0 %; CH 36.5; CHCM 31.9; Eosinophils % (A) 0 %; HCT 49.7 % (39.0-53.0); HDW 2.52; HGB 15.9 gm/dL (13.0-17.5); Luc # (Auto) 0.07; Luc % (Auto) 1; Lymphocytes # (A) 0.6 k/uL (1.0-4.8); Lymphocytes % (A) 9 %; MCH 36.9 pg (25.0-35.0); MCHC 32.1 g/dL (31.0-37.0); Macrocytosis Marked; Monocytes # (A) 0.4 k/uL (0-1.0); Monocytes % (A) 6 %; Neutrophils # (A) 5.6 k/uL (1.3-7.7); Neutrophils % (A) 84 %; RBC 4.32 m/uL (4.30-5.90); RDW 16.1 % (11.5-15.5); WBC 6.7 k/uL (3.8-10.6); WBC (Perox) 7.15
[2017-05-05 05:54] LABS: ALT 82 U/L (21-72); AST 75 U/L (17-59); Alkaline Phosphatase 39 U/L (38-126); Anion Gap 10 mmol/L; Blood Urea Nitrogen 22 mg/dL (9-20); Calcium 8.3 mg/dL (8.4-10.2); Carbon Dioxide 31 mmol/L (22-30); Chloride 98 mmol/L (98-107); Glucose 127 mg/dL (74-99); Magnesium 2.3 mg/dL (1.6-2.3); Non-African American GFR(MDRD) >60 (>60 ml/min/1.73 sqM); Phosphorous 3.8 mg/dL (2.5-4.5); Potassium 4.4 mmol/L (3.5-5.1); Sodium 139 mmol/L (137-145); Total Bilirubin 1.1 mg/dL (0.2-1.3); Total Protein 6.8 g/dL (6.3-8.2)
[2017-05-05 06:03] LABS: Manual Review Performed
[2017-05-05] MEDS: TIOTROPIUM 18 MCG/PUFF INHALER INHALATION SCH ×2 (07:25→07:37)
[2017-05-05] MEDS: SYMBICORT 160-4.5 MCG INHALER INHALATION SCH ×3 (07:25→20:54)
[2017-05-05] MEDS: ALBUTEROL NEBULIZED 2.5 MG/3 ML INHALATION SCH ×3 (07:25→20:54)
--- NOTE | 2017-05-05 07:25 | XR ---
EXAMINATION TYPE: XR chest 1V portable DATE OF EXAM: 05/05/2017 HISTORY: Shortness of breath. COMPARISON: 05/04/2017 TECHNIQUE: Single view of the chest is submitted. FINDINGS: Demonstrated are scattered senescent parenchymal change. There is stable left lower lobe infiltrate. The heart is stable. Hilar and mediastinal structures are within normal limits. Degenerative changes are seen of the dorsal spine. IMPRESSION: 1. There is stable left lower lobe infiltrate.
[2017-05-05 07:37] LABS: Glucose,Whole Blood 119 mg/dL (75-99)
[2017-05-05] MEDS: INSULIN LISPRO (humaLOG) 300 UNIT/3 ML VIAL SQ SCH ×4 (08:11→22:31)
[2017-05-05] MEDS: HEPARIN SODIUM,PORCINE 5,000 UNIT/ML 1 ML VIAL SQ SCH ×2 (08:52→22:31)
[2017-05-05] MEDS: FAMOTIDINE 20 MG/2 ML VIAL IV SCH ×2 (08:53→22:30)
[2017-05-05] MEDS: CYANOCOBALAMIN 1,000 MCG/ML 1 ML VIAL IM SCH (08:53)
[2017-05-05] MEDS: amLODIPine 2.5 MG TAB PO SCH ×2 (08:54→22:30)
[2017-05-05] MEDS ORDERED: MORPHINE SULFATE 2 MG/ML SYRINGE IVP PRN (09:38)
[2017-05-05] MEDS: METHADONE 10 MG TAB PO SCH ×2 (09:42→22:34)
--- NOTE | 2017-05-05 10:25 | P.PN ---
Subjective 04/29/17-This is a 61-year-old male who is being seen, evaluated and examined. This patient is well-known to our services. The patient came into the emergency room status post fall on 04/26/2017. Patient states he fell from his porch which was approximately 3-4 feet of a drop. He stated he was intoxicated with alcohol at the time. Patient stated that he landed on his right-sided chest. Patient denies and loss of consciousness or hitting his head. Patient initially did not have much pain but over the last 2 days the pain has increasingly gotten worse as well as he develop shortness of breath. The patient was taking naproxen at home without relief. Patient states that the pain is consistent moderate and with palpation it becomes more severe. Patient has developed increasing shortness of breath over the last few days as well as well as a productive cough with yellow sputum. She denies any hemoptysis. Patient is known to have history of COPD, patient states he does not use oxygen at home at this time however he has used it in the past.. Patient did undergo a CT of the chest abdomen and pelvis which revealed a small right pneumothorax, acute nondisplaced fractures right posterior seventh through ninth ribs. Some old healing fractures right posterior 10th rib 11th ribs, airspace opacity in the dependent lung bases consistent with atelectasis, possible superimposed right basilar pulmonary contusion. Upon examination the patient's resting up in bed on 2 L of supplemental oxygen. He states he continues to have rib pain with coughing. He is unable to bring up secretions due to pain. Patient states his current medications are effective for pain relief. He denies any fevers, chills, or hemoptysis, nausea, vomiting or diarrhea. 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 Patient's SpO2 was 86% on 4 L of supplemental oxygen. The patient's CBG was 118 patient was difficult to arouse. An 18 was called and stat ABGs were drawn and came back critical with a pH of 7.20 pCO2 of 71 and HCO3 26 and pO2 97% the patient was ultimately transferred over to the intensive care unit and put on BiPAP. A stat chest x-ray did show patchy airspace disease seen throughout both lungs, left greater than the right. Of note the patient also was suctioned and chewing tobacco was obtained the patient also vomited up a moderate amount of emesis, mixed with food articles as well as chewing tobacco. Apparently overnight the patient was found to be using chewing tobacco and it was removed from the patient's room and he was educated on the policy stating he could not have chewing tobacco in the hospital. Upon examination the patient is currently on BiPAP and is lethargic, his oxygen saturations have improved with the BiPAP, he does open his eyes spontaneously. The patient does not have any emergency contacts or family members that we are aware of to update we will put on social work to obtain a legal guardian for the patient. 05/01/17- this morning the patient is much more awake and alert. Patient was on BiPAP throughout the night and this morning. BiPAP was removed approximately 8 AM and the patient was transitioned to 10 L high flow nasal cannula with oxygen saturations in the mid 90s. Chest x-ray from this morning was reviewed and shows a mildly increased right infiltrate. Patient is on methadone and Xanax at home and he is requesting we transition to have those put back on his current meds. Education has been provided in regards to these medications and his respiratory status. We will start with methadone and hold on the Xanax at this time. She will also undergo a swallow eval before advancing his diet. 05/02/17 patient seen and evaluated and examined during the rounds in ICU he remains he remains intermittently anxious and agitated OxyIR and respiratory acidosis patient has been resumed on BiPAP currently patient is on IPAP of 15 and EPAP of 5 with 50% oxygen conceive a protocol as well as Haldol as needed and methadone has been resumed and the patient appears to be going through DTs as well, patient is being started on the thiamine and folic acid MVI him a care plan discussed with the primary service and nursing staff at length laboratory data reviewed chest x-ray reviewed as well, critical care time spent 35 minutes 05/03/17, Patient seen and examined in the ICU care plan discussed with the primary service and ICU staff at length patient remains intermittently agitated has been on ciwa protocol overnight. Overnight he required 8 mg of Ativan, patient overall appears slightly calm but is still undergoing active DTs, patient remains on BiPAP 15/5 with 50% oxygen he has been off of BiPAP with high flow oxygen about 8-10 L every 2-3 hour half an hour or so eating some but appetite has been poor he has been noted to have generalized swelling and third spacing and mild anasarca, x-ray from yesterday and laboratory data from today has been reviewed 05/04/17-patient continues on CIWA protocol, however has required less Ativan today than previously. Patient overall appears slightly calm but still has intermittent agitation and is undergoing active DTs. Patient continued on BiPAP 15/5 with 50% of oxygen overnight. Early the patient is on 5 L of supplemental oxygen via nasal cannula. He is noted to have less swelling/third spacing today than previous. Chest x-ray has been reviewed and shows improving CHF. Patient also did receive one-time dose of Lasix yesterday, with good effects. She continues to be short of breath with exertion. Denies any cough or congestion today. 05/05/17- upon examination today the patient is sleepy, is pleasantly confused. Continues on 4 L of supplemental oxygen via nasal cannula. He did use the BiPAP overnight. Edema is improving. Patient's chest x-ray from today is stable. Continues with left lower lobe infiltrate. Patient does become short of breath with exertion. He is still undergoing active DTs however symptoms are slowly improving. He did require Ativan per CIWA protocol overnight. He continues on IV Solu-Medrol. Methadone as scheduled. Nebulizers as scheduled. Objective - Vital Signs Vital signs: Vital Signs Temp 97.4 F L 05/05/17 08:00 Pulse 89 05/05/17 10:00 Resp 14 05/05/17 10:00 BP 148/92 05/05/17 10:00 Pulse Ox 92 L 05/05/17 10:00 Intake & Output 05/04/17 05/05/17 05/05/17 18:59 06:59 18:59 Intake Total 550 830.0 125.0 Output Total 1360 1390 340 Balance -810 -560.0 -215.0 Weight 87.6 kg Intake: IV 175 325.0 125.0 Mvi, Adult No.4 with Vit 125 K 10 ml Thiamine 100 mg Folic Acid 1 mg In Sodium Chloride 0.9% 1,000 ml @ 100 mls/hr IV [facility] Rx#: [id number] Piperacillin-Tazobactam 3 50 50.0 25.0 .375 gm In Dextrose/Water 1 50ml.bag @ 12.5 mls/hr IVPB Q8HR EL Rx#: [id number] Sodium Chloride 0.9% 1, 275 100 000 ml @ 25 mls/hr IV . Q24H ONE with Mvi, Adult No.4 with Vit K 10 ml with Thiamine 100 mg with Folic Acid 1 mg Rx#: [id number] Intake, IV Titration 175 25 Amount Sodium Chloride 0.9% 1, 175 25 000 ml @ 25 mls/hr IV . Q24H ONE with Mvi, Adult No.4 with Vit K 10 ml with Thiamine 100 mg with Folic Acid 1 mg Rx#: [id number] Oral 200 480 Output: Urine 1360 1390 340 Other: Voiding Method Indwelling Catheter Indwelling Catheter Indwelling Catheter - Exam GENERAL EXAM: Tired, no apparent distress HEAD: Normocephalic. EYES: Normal reaction of pupils, equal size. NOSE: Clear with pink turbinates. THROAT: No erythema or exudates. NECK: No masses, no JVD. CHEST: No chest wall deformity. LUNGS: Patient noted to have coarse breath sounds with scattered rhonchi and faint end expiratory wheezes. Patient also known to have chest wall tenderness on the right side. CVS: S1 and S2 normal with no audible mumurs, regular rhythm. ABDOMEN: No hepatosplenomegaly, normal bowel sounds, no guarding or rigidity. EXTREMITIES: No edema noted, pedal pulses palpable. CENTRAL NERVOUS SYSTEM: No focal deficits, tone is normal in all 4 extremities. - Labs CBC & Chem 7: 05/05/17 05:30 05/05/17 05:30 Labs: Abnormal Lab Results - Last 24 Hours (Table) 05/04/17 05/04/17 05/04/17 Range/Units 12:22 17:12 22:01 MCV (80.0-100.0) fL MCH (25.0-35.0) pg RDW (11.5-15.5) % Lymphocytes # (1.0-4.8) k/uL Carbon Dioxide (22-30) mmol/L BUN (9-20) mg/dL Glucose (74-99) mg/dL POC Glucose (mg/dL) 103 H 112 H 126 H (75-99) mg/dL Calcium (8.4-10.2) mg/dL AST (17-59) U/L ALT (21-72) U/L 05/05/17 05/05/17 05/05/17 Range/Units 05:30 05:30 07:35 MCV 115.0 H (80.0-100.0) fL MCH 36.9 H (25.0-35.0) pg RDW 16.1 H (11.5-15.5) % Lymphocytes # 0.6 L (1.0-4.8) k/uL Carbon Dioxide 31 H (22-30) mmol/L BUN 22 H (9-20) mg/dL Glucose 127 H (74-99) mg/dL POC Glucose (mg/dL) 119 H (75-99) mg/dL Calcium 8.3 L (8.4-10.2) mg/dL AST 75 H (17-59) U/L ALT 82 H (21-72) U/L Microbiology - Last 24 Hours (Table) 04/29/17 00:45 Blood Culture - Final Blood No Growth after 144 hours Assessment and Plan Plan: Assessment Left lower lobe aspiration pneumonia likely related to chewing tobacco Increased lethargy Status post fall Small right sided pneumothorax Multiple right-sided rib fractures Acute on chronic hypoxic hypercapnic respiratory failure COPD Chronic persistent moderate asthma with a component of ALLERGIC asthma Nicotine dependence Plan Medications have been reviewed and will be continued as ordered. Continue on IV Solu-Medrol 40 every 8 hours. We will continue to monitor the pneumothorax which seems to be improved. newly developed left lower lobe aspiration pneumonia is stable. Daily chest xrays. Initiate and encourage incentive spirometer. Continue with pulmonary hygiene, coughing and deep breathing exercises, and supportive care. Supplemental oxygen to maintain oxygen saturations of 92% or better. BiPAP Continue nebulizer treatments. GI and DVT prophylaxis. We will continue to monitor labs/results and adjust treatment as necessary. Further recommendations pending. I performed an examination of the patient and discussed their management with the nurse practitioner. I have reviewed the nurse practitioner's note and agree with the documented findings and plan of care.
[2017-05-05 12:06] LABS: Glucose,Whole Blood 136 mg/dL (75-99)
--- NOTE | 2017-05-05 17:21 | P.PN ---
Subjective s/p fall and RT sided rib fractures Mr. Craig is a 61-year-old male with a known history of asthma/COPD EtOH abuse, chronic pain and liver disease came to the ER status post fall on 04/26/2017. Patient was intoxicated with all call and had a mechanical fall. Patient landed on the right side of his chest. Denied any headache or head injury or loss of consciousness. Patient has been increasing short of breath and pain with deep breathing. Patient came to the hospital. Patient has been having chronic cough with whitish to yellow sputum. No increasing in quantity of sputum or frequency. Patient had CT of the chest abdomen and pelvis was done in the year showed a small right pneumothorax, acute nondisplaced fractures right posterior seventh through ninth ribs. Patient also had right posterior 10th rib and 11th rib. An air space opacity in the dependent lung bases consistent with atelectasis and superimposed possible right basilar pulmonary contusion.. Currently patient is complaining of pain with coughing and deep breathing. No fever or chills. No nausea vomiting or abdominal Pain. On 04/30/17 - Pt became diaphoretic, pale, lethargic and his O2 sat dropped to 86% on 4 L of supplemental oxygen. ABGs were drawn showed - pH of 7.20 pCO2 of 71 and HCO3 26 and pO2 97% the patient was placed on BiPAP and transferred over to the intensive care unit . Apparently the pt was found chewing tobacco and also threw up once and eventually went into respiratory distress. A stat chest x-ray did show patchy airspace disease seen throughout both lungs. So he might have aspirated. on 05/01/17 Pt. is saturating well on NC, Pt. is agitated and is in DTs. no fever/chills Complete ROS could not be done as the pt is on BiPAP. As per nursing staff report , no other active issues. on 05/02/17 pt is lethargic 05/03/2017 Patient is doing a little bit better Stable on the current medication regimen Patient is only on 5 L supplement oxygen 05/04/17 on 4 l o2 more pleasant today however confused passed his swallow eval 05/05/17 required over 7 mg of ativan overnight confused however more pleasant - Exam HEENT: Normocephalic. Neck is supple. Pupils reactive. Nostrils clear. Oral cavity is moist. Ears reveal no drainage. Neck reveals no JVD, carotid bruits, or thyromegaly. CHEST EXAMINATION: Trachea is central. Decreased air entry right lower lobes mainly right side and minimal crackles.Coarse breath sounds in all lung drake. Right lower rib cage tenderness and pain no crepitus heard. CARDIAC: Normal S1, S2 with no gallops. No murmurs ABDOMEN: Soft. Bowel sounds normal. No organomegaly. No abdominal bruits. Extremities: reveal no edema. No clubbing or cyanosis Neurologically alert to self Skin: No rash or skin lesions. Musculoskeletal: No joint swelling or deformity. Normal range of motion. Assessment and Plan Plan: 1. Delirium Tremens, encephalopathy, both metabolic and toxic 1.Acute Hypoxic respiratory failure- due to Aspiration 1 Status post mechanical fall along with EtOH intoxication 2 Small right-sided pneumothorax 3 Right-sided posterior seventh through ninth rib fractures nondisplaced 4 acute on chronic hypoxic respiratory failure 5 COPD with mild exacerbation 6 history of moderately chronic persistent asthma with ALLERGY component 7 EtOH abuse 8 Elevated lactic acidosis due to volume depletion. 9 DVT prophylaxis 10 Mildly elevated liver enzymes 11 Macrocytosis PLAN: Slightly improved continue with the Mely Ativan when necessary, restart methadone Continue full ICU supportive care Continue antibiotic therapy fall precautions Objective - Vital Signs Vital signs: Vital Signs Temp 97.8 F 05/05/17 16:00 Pulse 106 H 05/05/17 17:00 Resp 17 05/05/17 17:00 BP 176/97 05/05/17 17:00 Pulse Ox 92 L 05/05/17 17:00 Intake & Output 05/04/17 05/05/17 05/05/17 18:59 06:59 18:59 Intake Total 550 830.0 285.0 Output Total 1360 1390 760 Balance -810 -560.0 -475.0 Weight 87.6 kg Intake: IV 175 325.0 235.0 0.9 at KVO 10 Mvi, Adult No.4 with Vit 125 K 10 ml Thiamine 100 mg Folic Acid 1 mg In Sodium Chloride 0.9% 1,000 ml @ 100 mls/hr IV .[facility] Rx#: [id number] Piperacillin-Tazobactam 3 50 50.0 75.0 .375 gm In Dextrose/Water 1 50ml.bag @ 12.5 mls/hr IVPB Q8HR [facility] Rx#: [id number] Sodium Chloride 0.9% 1, 275 150 000 ml @ 25 mls/hr IV . Q24H ONE with Mvi, Adult No.4 with Vit K 10 ml with Thiamine 100 mg with Folic Acid 1 mg Rx#: [id number] Intake, IV Titration 175 25 Amount Sodium Chloride 0.9% 1, 175 25 000 ml @ 25 mls/hr IV . Q24H ONE with Mvi, Adult No.4 with Vit K 10 ml with Thiamine 100 mg with Folic Acid 1 mg Rx#: [id number] Oral 200 480 50 Output: Urine 1360 1390 760 Other: Voiding Method Indwelling Catheter Indwelling Catheter Indwelling Catheter - Labs CBC & Chem 7: 05/05/17 05:30 05/05/17 05:30 Labs: Abnormal Lab Results - Last 24 Hours (Table) 05/04/17 05/05/17 05/05/17 Range/Units 22:01 05:30 05:30 MCV 115.0 H (80.0-100.0) fL MCH 36.9 H (25.0-35.0) pg RDW 16.1 H (11.5-15.5) % Lymphocytes # 0.6 L (1.0-4.8) k/uL Carbon Dioxide 31 H (22-30) mmol/L BUN 22 H (9-20) mg/dL Glucose 127 H (74-99) mg/dL POC Glucose (mg/dL) 126 H (75-99) mg/dL Calcium 8.3 L (8.4-10.2) mg/dL AST 75 H (17-59) U/L ALT 82 H (21-72) U/L 05/05/17 05/05/17 Range/Units 07:35 12:04 MCV (80.0-100.0) fL MCH (25.0-35.0) pg RDW (11.5-15.5) % Lymphocytes # (1.0-4.8) k/uL Carbon Dioxide (22-30) mmol/L BUN (9-20) mg/dL Glucose (74-99) mg/dL POC Glucose (mg/dL) 119 H 136 H (75-99) mg/dL Calcium (8.4-10.2) mg/dL AST (17-59) U/L ALT (21-72) U/L Microbiology - Last 24 Hours (Table) 04/29/17 00:45 Blood Culture - Final Blood No Growth after 144 hours
[2017-05-05 17:30] LABS: Glucose,Whole Blood 104 mg/dL (75-99)
[2017-05-05 21:15] LABS: Glucose,Whole Blood 113 mg/dL (75-99)
[2017-05-05] MEDS: ZIPRASIDONE 20 MG VIAL IM SCH (22:31)
[2017-05-06] MEDS: PIPERACILLIN-TAZOBACTAM 3.375 GM in DEXTROSE/WATER 1 50ML.BAG IVPB SCH ×3 (00:15→15:55)
[2017-05-06] MEDS: methylPREDNISolone SOD SUCCI 40 MG/ML 1 ML VIAL IV SCH ×3 (00:15→15:51)
[2017-05-06 06:26] LABS: Glucose,Whole Blood 134 mg/dL (75-99)
[2017-05-06] MEDS ORDERED: NALOXONE 1 MG/ML 2 ML SYRINGE IVP STA (07:09)
[2017-05-06 07:24] LABS: Anisocytosis Slight; Basophils % (A) 0 %; CH 36.8; CHCM 32.3; Eosinophils # (A) 0.1 k/uL (0-0.7); Eosinophils % (A) 1 %; HCT 48.1 % (39.0-53.0); HDW 2.51; HGB 15.6 gm/dL (13.0-17.5); Luc # (Auto) 0.03; Luc % (Auto) 0; Lymphocytes # (A) 0.4 k/uL (1.0-4.8); Lymphocytes % (A) 6 %; MCH 37.3 pg (25.0-35.0); MCHC 32.6 g/dL (31.0-37.0); MCV 114.4 fL (80.0-100.0); Macrocytosis Marked; Monocytes # (A) 0.3 k/uL (0-1.0); Monocytes % (A) 4 %; Neutrophils # (A) 6.5 k/uL (1.3-7.7); Neutrophils % (A) 88 %; RDW 16.1 % (11.5-15.5); WBC 7.4 k/uL (3.8-10.6); WBC (Perox) 7.49
[2017-05-06] MEDS: INSULIN LISPRO (humaLOG) 300 UNIT/3 ML VIAL SQ SCH ×5 (07:26→22:11)
[2017-05-06 07:34] LABS: ALT 110 U/L (21-72); AST 82 U/L (17-59); Alkaline Phosphatase 38 U/L (38-126); Anion Gap 6 mmol/L; Blood Urea Nitrogen 23 mg/dL (9-20); Calcium 8.1 mg/dL (8.4-10.2); Carbon Dioxide 38 mmol/L (22-30); Chloride 96 mmol/L (98-107); Glucose 117 mg/dL (74-99); Magnesium 2.4 mg/dL (1.6-2.3); Non-African American GFR(MDRD) >60 (>60 ml/min/1.73 sqM); Phosphorous 5.2 mg/dL (2.5-4.5); Sodium 140 mmol/L (137-145); Total Bilirubin 0.9 mg/dL (0.2-1.3); Total Protein 6.5 g/dL (6.3-8.2)
[2017-05-06 07:36] LABS: Potassium 4.9 mmol/L (3.5-5.1)
[2017-05-06] MEDS: NALOXONE 0.4 MG/ML 1 ML VIAL IV PRN ×2 (08:02→11:08)
[2017-05-06] MEDS: TIOTROPIUM 18 MCG/PUFF INHALER INHALATION SCH (08:20)
[2017-05-06] MEDS: ALBUTEROL NEBULIZED 2.5 MG/3 ML INHALATION SCH ×3 (08:20→20:00)
[2017-05-06] MEDS: SYMBICORT 160-4.5 MCG INHALER INHALATION SCH ×2 (08:20→20:00)
[2017-05-06] MEDS: HEPARIN SODIUM,PORCINE 5,000 UNIT/ML 1 ML VIAL SQ SCH ×2 (08:24→22:32)
--- NOTE | 2017-05-06 08:43 | XR ---
EXAMINATION TYPE: XR chest 1V portable DATE OF EXAM: 05/06/2017 HISTORY: Shortness of breath. COMPARISON: 05/05/2017 TECHNIQUE: Single view of the chest is submitted. FINDINGS: Demonstrated are scattered senescent parenchymal change. There is infiltrate right perihilar region and into a lesser extent left perihilar region. There is a mild cardiomegaly. A degree of superimposed failure is difficult to exclude. The heart is stable. Hilar and mediastinal structures are within normal limits. Degenerative changes are seen of the dorsal spine. IMPRESSION: 1. Findings may reflect bilateral pneumonia however superimposed congestive failure is difficult to exclude. Correlate clinically and progress studies are recommended.
[2017-05-06] MEDS: METHADONE 10 MG TAB PO SCH (11:08)
[2017-05-06] MEDS: FAMOTIDINE 20 MG/2 ML VIAL IV SCH (11:29)
[2017-05-06] MEDS: amLODIPine 2.5 MG TAB PO SCH ×3 (11:30→22:32)
[2017-05-06] MEDS: THIAMINE 100 MG TAB PO SCH (11:30)
[2017-05-06] MEDS: CYANOCOBALAMIN 1,000 MCG/ML 1 ML VIAL IM SCH (11:30)
[2017-05-06 11:52] LABS: Glucose,Whole Blood 155 mg/dL (75-99)
[2017-05-06] MEDS ORDERED: FUROSEMIDE 10 MG/ML 4 ML VIAL IV STA (12:03)
--- NOTE | 2017-05-06 12:03 | P.PN ---
Subjective 04/29/17-This is a 61-year-old male who is being seen, evaluated and examined. This patient is well-known to our services. The patient came into the emergency room status post fall on 04/26/2017. Patient states he fell from his porch which was approximately 3-4 feet of a drop. He stated he was intoxicated with alcohol at the time. Patient stated that he landed on his right-sided chest. Patient denies and loss of consciousness or hitting his head. Patient initially did not have much pain but over the last 2 days the pain has increasingly gotten worse as well as he develop shortness of breath. The patient was taking naproxen at home without relief. Patient states that the pain is consistent moderate and with palpation it becomes more severe. Patient has developed increasing shortness of breath over the last few days as well as well as a productive cough with yellow sputum. She denies any hemoptysis. Patient is known to have history of COPD, patient states he does not use oxygen at home at this time however he has used it in the past.. Patient did undergo a CT of the chest abdomen and pelvis which revealed a small right pneumothorax, acute nondisplaced fractures right posterior seventh through ninth ribs. Some old healing fractures right posterior 10th rib 11th ribs, airspace opacity in the dependent lung bases consistent with atelectasis, possible superimposed right basilar pulmonary contusion. Upon examination the patient's resting up in bed on 2 L of supplemental oxygen. He states he continues to have rib pain with coughing. He is unable to bring up secretions due to pain. Patient states his current medications are effective for pain relief. He denies any fevers, chills, or hemoptysis, nausea, vomiting or diarrhea. 04/30/17- apparently special ed assistant the patient was found to be diaphoretic, pale and lethargic. Patient's SpO2 was 86% on 4 L of supplemental oxygen. The patient's CBG was 118 patient was difficult to arouse. An 18 was called and stat ABGs were drawn and came back critical with a pH of 7.20 pCO2 of 71 and HCO3 26 and pO2 97% the patient was ultimately transferred over to the intensive care unit and put on BiPAP. A stat chest x-ray did show patchy airspace disease seen throughout both lungs, left greater than the right. Of note the patient also was suctioned and chewing tobacco was obtained the patient also vomited up a moderate amount of emesis, mixed with food articles as well as chewing tobacco. Apparently overnight the patient was found to be using chewing tobacco and it was removed from the patient's room and he was educated on the policy stating he could not have chewing tobacco in the hospital. Upon examination the patient is currently on BiPAP and is lethargic, his oxygen saturations have improved with the BiPAP, he does open his eyes spontaneously. The patient does not have any emergency contacts or family members that we are aware of to update we will put on social work to obtain a legal guardian for the patient. 05/01/17- this morning the patient is much more awake and alert. Patient was on BiPAP throughout the night and this morning. BiPAP was removed approximately 8 AM and the patient was transitioned to 10 L high flow nasal cannula with oxygen saturations in the mid 90s. Chest x-ray from this morning was reviewed and shows a mildly increased right infiltrate. Patient is on methadone and Xanax at home and he is requesting we transition to have those put back on his current meds. Education has been provided in regards to these medications and his respiratory status. We will start with methadone and hold on the Xanax at this time. She will also undergo a swallow eval before advancing his diet. 05/02/17 patient seen and evaluated and examined during the rounds in ICU he remains he remains intermittently anxious and agitated OxyIR and respiratory acidosis patient has been resumed on BiPAP currently patient is on IPAP of 15 and EPAP of 5 with 50% oxygen conceive a protocol as well as Haldol as needed and methadone has been resumed and the patient appears to be going through DTs as well, patient is being started on the thiamine and folic acid MVI him a care plan discussed with the primary service and nursing staff at length laboratory data reviewed chest x-ray reviewed as well, critical care time spent 35 minutes 05/03/17, Patient seen and examined in the ICU care plan discussed with the primary service and ICU staff at length patient remains intermittently agitated has been on ciwa protocol overnight. Overnight he required 8 mg of Ativan, patient overall appears slightly calm but is still undergoing active DTs, patient remains on BiPAP 15/5 with 50% oxygen he has been off of BiPAP with high flow oxygen about 8-10 L every 2-3 hour half an hour or so eating some but appetite has been poor he has been noted to have generalized swelling and third spacing and mild anasarca, x-ray from yesterday and laboratory data from today has been reviewed 05/04/17-patient continues on CIWA protocol, however has required less Ativan today than previously. Patient overall appears slightly calm but still has intermittent agitation and is undergoing active DTs. Patient continued on BiPAP 15/5 with 50% of oxygen overnight. Early the patient is on 5 L of supplemental oxygen via nasal cannula. He is noted to have less swelling/third spacing today than previous. Chest x-ray has been reviewed and shows improving CHF. Patient also did receive one-time dose of Lasix yesterday, with good effects. She continues to be short of breath with exertion. Denies any cough or congestion today. 05/05/17- upon examination today the patient is sleepy, is pleasantly confused. Continues on 4 L of supplemental oxygen via nasal cannula. He did use the BiPAP overnight. Edema is improving. Patient's chest x-ray from today is stable. Continues with left lower lobe infiltrate. Patient does become short of breath with exertion. He is still undergoing active DTs however symptoms are slowly improving. He did require Ativan per CIWA protocol overnight. He continues on IV Solu-Medrol. Methadone as scheduled. Nebulizers as scheduled. 05/06/17 patient is being seen today and examined on rounds. Upon examination the patient is resting up in bed on BiPAP according to the nursing staff the patient needed the BiPAP this morning due to oxygen saturations in the high 80s. Currently his oxygen saturations are maintained with the BiPAP in the mid 90s. Chest x-ray from today is stable. Labs are reviewed. Objective - Vital Signs Vital signs: Vital Signs Temp 97.5 F L 05/06/17 11:14 Pulse 94 05/06/17 11:35 Resp 14 05/06/17 11:35 BP 154/94 05/06/17 11:35 Pulse Ox 92 L 05/06/17 11:35 Intake & Output 05/05/17 05/06/17 05/06/17 18:59 06:59 18:59 Intake Total 533.5 Output Total 820 200 Balance -286.5 -200 Weight 89 kg Intake: IV 247.5 0.9 at KVO 10 Piperacillin-Tazobactam 3 87.5 .375 gm In Dextrose/Water 1 50ml.bag @ 12.5 mls/hr IVPB Q8HR [facility] Rx#: [id number] Sodium Chloride 0.9% 1, 150 000 ml @ 25 mls/hr IV . Q24H ONE with Mvi, Adult No.4 with Vit K 10 ml with Thiamine 100 mg with Folic Acid 1 mg Rx#: [id number] Oral 286 Output: Urine 820 200 Other: Voiding Method Indwelling Catheter Urinal Diaper Incontinent # Voids 1 # Bowel Movements 1 - Exam GENERAL EXAM: Tired, no apparent distress HEAD: Normocephalic. EYES: Normal reaction of pupils, equal size. NOSE: Clear with pink turbinates. THROAT: No erythema or exudates. NECK: No masses, no JVD. CHEST: No chest wall deformity. LUNGS: Patient noted to have coarse breath sounds with scattered rhonchi and faint end expiratory wheezes. Patient also noted to have some faint bibasilar crackles. Patient also known to have chest wall tenderness on the right side. CVS: S1 and S2 normal with no audible mumurs, regular rhythm. ABDOMEN: No hepatosplenomegaly, normal bowel sounds, no guarding or rigidity. EXTREMITIES: No edema noted, pedal pulses palpable. CENTRAL NERVOUS SYSTEM: No focal deficits, tone is normal in all 4 extremities. - Labs CBC & Chem 7: 05/06/17 06:54 05/06/17 06:54 Labs: Abnormal Lab Results - Last 24 Hours (Table) 05/05/17 05/05/17 05/05/17 Range/Units 12:04 16:54 21:13 RBC (4.30-5.90) m/uL MCV (80.0-100.0) fL MCH (25.0-35.0) pg RDW (11.5-15.5) % Lymphocytes # (1.0-4.8) k/uL Chloride (98-107) mmol/L Carbon Dioxide (22-30) mmol/L BUN (9-20) mg/dL Glucose (74-99) mg/dL POC Glucose (mg/dL) 136 H 104 H 113 H (75-99) mg/dL Calcium (8.4-10.2) mg/dL Phosphorus (2.5-4.5) mg/dL Magnesium (1.6-2.3) mg/dL AST (17-59) U/L ALT (21-72) U/L 05/06/17 05/06/17 05/06/17 Range/Units 06:25 06:54 06:54 RBC 4.20 L (4.30-5.90) m/uL MCV 114.4 H (80.0-100.0) fL MCH 37.3 H (25.0-35.0) pg RDW 16.1 H (11.5-15.5) % Lymphocytes # 0.4 L (1.0-4.8) k/uL Chloride 96 L (98-107) mmol/L Carbon Dioxide 38 H (22-30) mmol/L BUN 23 H (9-20) mg/dL Glucose 117 H (74-99) mg/dL POC Glucose (mg/dL) 134 H (75-99) mg/dL Calcium 8.1 L (8.4-10.2) mg/dL Phosphorus 5.2 H (2.5-4.5) mg/dL Magnesium 2.4 H (1.6-2.3) mg/dL AST 82 H (17-59) U/L ALT 110 H (21-72) U/L 05/06/17 Range/Units 11:51 RBC (4.30-5.90) m/uL MCV (80.0-100.0) fL MCH (25.0-35.0) pg RDW (11.5-15.5) % Lymphocytes # (1.0-4.8) k/uL Chloride (98-107) mmol/L Carbon Dioxide (22-30) mmol/L BUN (9-20) mg/dL Glucose (74-99) mg/dL POC Glucose (mg/dL) 155 H (75-99) mg/dL Calcium (8.4-10.2) mg/dL Phosphorus (2.5-4.5) mg/dL Magnesium (1.6-2.3) mg/dL AST (17-59) U/L ALT (21-72) U/L Assessment and Plan Plan: Assessment Left lower lobe aspiration pneumonia likely related to chewing tobacco Increased lethargy Status post fall Small right sided pneumothorax Multiple right-sided rib fractures Acute on chronic hypoxic hypercapnic respiratory failure COPD Chronic persistent moderate asthma with a component of ALLERGIC asthma Nicotine dependence Plan Medications have been reviewed and will be continued as ordered. We will order a 1 time dose of Lasix 40mg. Continue on IV Solu-Medrol 40 every 8 hours. We will continue to monitor the pneumothorax which seems to be improved. newly developed left lower lobe aspiration pneumonia is stable. Daily chest xrays. Initiate and encourage incentive spirometer. Continue with pulmonary hygiene, coughing and deep breathing exercises, and supportive care. Supplemental oxygen to maintain oxygen saturations of 92% or better. BiPAP Continue nebulizer treatments. GI and DVT prophylaxis. We will continue to monitor labs/results and adjust treatment as necessary. Further recommendations pending. I performed an examination of the patient and discussed their management with the nurse practitioner. I have reviewed the nurse practitioner's note and agree with the documented findings and plan of care.
--- NOTE | 2017-05-06 16:18 | P.PN ---
Subjective s/p fall and RT sided rib fractures Mr. Craig is a 61-year-old male with a known history of asthma/COPD EtOH abuse, chronic pain and liver disease came to the ER status post fall on 04/26/2017. Patient was intoxicated with all call and had a mechanical fall. Patient landed on the right side of his chest. Denied any headache or head injury or loss of consciousness. Patient has been increasing short of breath and pain with deep breathing. Patient came to the hospital. Patient has been having chronic cough with whitish to yellow sputum. No increasing in quantity of sputum or frequency. Patient had CT of the chest abdomen and pelvis was done in the year showed a small right pneumothorax, acute nondisplaced fractures right posterior seventh through ninth ribs. Patient also had right posterior 10th rib and 11th rib. An air space opacity in the dependent lung bases consistent with atelectasis and superimposed possible right basilar pulmonary contusion.. Currently patient is complaining of pain with coughing and deep breathing. No fever or chills. No nausea vomiting or abdominal Pain. On 04/30/17 - Pt became diaphoretic, pale, lethargic and his O2 sat dropped to 86% on 4 L of supplemental oxygen. ABGs were drawn showed - pH of 7.20 pCO2 of 71 and HCO3 26 and pO2 97% the patient was placed on BiPAP and transferred over to the intensive care unit . Apparently the pt was found chewing tobacco and also threw up once and eventually went into respiratory distress. A stat chest x-ray did show patchy airspace disease seen throughout both lungs. So he might have aspirated. on 05/01/17 Pt. is saturating well on NC, Pt. is agitated and is in DTs. no fever/chills Complete ROS could not be done as the pt is on BiPAP. As per nursing staff report , no other active issues. on 05/02/17 pt is lethargic 05/03/2017 Patient is doing a little bit better Stable on the current medication regimen Patient is only on 5 L supplement oxygen 05/04/17 on 4 l o2 more pleasant today however confused passed his swallow eval 05/05/17 required over 7 mg of ativan overnight confused however more pleasant 72/17 pt was lethargic this am, was noted to have pinpoint pupils with low rr. I directed to give narcan after a review pt was not taking methadone on review of MAPS improved by the time of my eval cxr was reviewed - Exam HEENT: Normocephalic. Neck is supple. Pupils reactive. Nostrils clear. Oral cavity is moist. Ears reveal no drainage. Neck reveals no JVD, carotid bruits, or thyromegaly. CHEST EXAMINATION: Trachea is central. Decreased air entry right lower lobes mainly right side and minimal crackles.Coarse breath sounds in all lung drake. Right lower rib cage tenderness and pain no crepitus heard. CARDIAC: Normal S1, S2 with no gallops. No murmurs ABDOMEN: Soft. Bowel sounds normal. No organomegaly. No abdominal bruits. Extremities: reveal no edema. No clubbing or cyanosis Neurologically alert to self Skin: No rash or skin lesions. Musculoskeletal: No joint swelling or deformity. Normal range of motion. Assessment and Plan Plan: 1. Delirium Tremens, encephalopathy, both metabolic and toxic 1.Acute Hypoxic respiratory failure- due to Aspiration 1 Status post mechanical fall along with EtOH intoxication 2 Small right-sided pneumothorax 3 Right-sided posterior seventh through ninth rib fractures nondisplaced 4 acute on chronic hypoxic respiratory failure 5 COPD with mild exacerbation 6 history of moderately chronic persistent asthma with ALLERGY component 7 EtOH abuse 8 Elevated lactic acidosis due to volume depletion. 9 DVT prophylaxis 10 Mildly elevated liver enzymes 11 Macrocytosis 12. HTN, accelerated PLAN: Slightly improved continue with the Daria Boone when necessary, dc methadone one dose of lasix was given amlodipine dc planning Continue full ICU supportive care Continue antibiotic therapy fall precautions Objective - Vital Signs Vital signs: Vital Signs Temp 99 F 05/06/17 15:37 Pulse 110 H 05/06/17 15:37 Resp 16 05/06/17 15:37 BP 183/99 05/06/17 15:37 Pulse Ox 94 L 05/06/17 15:37 Intake & Output 05/05/17 05/06/17 05/06/17 18:59 06:59 18:59 Intake Total 533.5 Output Total 820 200 Balance -286.5 -200 Weight 89 kg Intake: IV 247.5 0.9 at KVO 10 Piperacillin-Tazobactam 3 87.5 .375 gm In Dextrose/Water 1 50ml.bag @ 12.5 mls/hr IVPB Q8HR [facility] Rx#: [id number] Sodium Chloride 0.9% 1, 150 000 ml @ 25 mls/hr IV . Q24H ONE with Mvi, Adult No.4 with Vit K 10 ml with Thiamine 100 mg with Folic Acid 1 mg Rx#: [id number] Oral 286 Output: Urine 820 200 Other: Voiding Method Indwelling Catheter Urinal Diaper Incontinent # Voids 1 # Bowel Movements 1 - Labs CBC & Chem 7: 05/06/17 06:54 05/06/17 06:54 Labs: Abnormal Lab Results - Last 24 Hours (Table) 05/05/17 05/05/17 05/06/17 Range/Units 16:54 21:13 06:25 RBC (4.30-5.90) m/uL MCV (80.0-100.0) fL MCH (25.0-35.0) pg RDW (11.5-15.5) % Lymphocytes # (1.0-4.8) k/uL Chloride (98-107) mmol/L Carbon Dioxide (22-30) mmol/L BUN (9-20) mg/dL Glucose (74-99) mg/dL POC Glucose (mg/dL) 104 H 113 H 134 H (75-99) mg/dL Calcium (8.4-10.2) mg/dL Phosphorus (2.5-4.5) mg/dL Magnesium (1.6-2.3) mg/dL AST (17-59) U/L ALT (21-72) U/L 05/06/17 05/06/17 05/06/17 Range/Units 06:54 06:54 11:51 RBC 4.20 L (4.30-5.90) m/uL MCV 114.4 H (80.0-100.0) fL MCH 37.3 H (25.0-35.0) pg RDW 16.1 H (11.5-15.5) % Lymphocytes # 0.4 L (1.0-4.8) k/uL Chloride 96 L (98-107) mmol/L Carbon Dioxide 38 H (22-30) mmol/L BUN 23 H (9-20) mg/dL Glucose 117 H (74-99) mg/dL POC Glucose (mg/dL) 155 H (75-99) mg/dL Calcium 8.1 L (8.4-10.2) mg/dL Phosphorus 5.2 H (2.5-4.5) mg/dL Magnesium 2.4 H (1.6-2.3) mg/dL AST 82 H (17-59) U/L ALT 110 H (21-72) U/L
[2017-05-06] MEDS: LORazepam 2 MG/ML SYRINGE IV PRN ×2 (16:21→22:59)
[2017-05-06 17:05] LABS: Glucose,Whole Blood 118 mg/dL (75-99)
[2017-05-06 20:59] LABS: Glucose,Whole Blood 110 mg/dL (75-99)
[2017-05-06] MEDS: FUROSEMIDE 10 MG/ML 2 ML VIAL IV SCH (22:31)
[2017-05-06] MEDS: ZIPRASIDONE 20 MG VIAL IM SCH (22:33)
[2017-05-07] MEDS: PIPERACILLIN-TAZOBACTAM 3.375 GM in DEXTROSE/WATER 1 50ML.BAG IVPB SCH ×4 (01:26→23:34)
[2017-05-07] MEDS: methylPREDNISolone SOD SUCCI 40 MG/ML 1 ML VIAL IV SCH ×4 (01:27→23:33)
[2017-05-07 06:33] LABS: Glucose,Whole Blood 119 mg/dL (75-99)
[2017-05-07] MEDS: INSULIN LISPRO (humaLOG) 300 UNIT/3 ML VIAL SQ SCH ×4 (06:47→21:53)
[2017-05-07 07:45] LABS: Basophils % (A) 0 %; CH 36.7; CHCM 32.9; Eosinophils % (A) 0 %; HCT 53.2 % (39.0-53.0); HDW 2.54; HGB 18.1 gm/dL (13.0-17.5); Luc # (Auto) 0.06; Luc % (Auto) 1; Lymphocytes # (A) 0.5 k/uL (1.0-4.8); Lymphocytes % (A) 5 %; MCH 38.1 pg (25.0-35.0); Macrocytosis Marked; Mean Platelet Volume 7.5; Monocytes # (A) 0.6 k/uL (0-1.0); Monocytes % (A) 6 %; Neutrophils # (A) 7.9 k/uL (1.3-7.7); Neutrophils % (A) 88 %; RBC 4.75 m/uL (4.30-5.90); WBC 9.1 k/uL (3.8-10.6); WBC (Perox) 9.08
[2017-05-07 07:46] LABS: ALT 189 U/L (21-72); AST 161 U/L (17-59); Alkaline Phosphatase 50 U/L (38-126); Anion Gap 10 mmol/L; Blood Urea Nitrogen 29 mg/dL (9-20); Carbon Dioxide 37 mmol/L (22-30); Chloride 94 mmol/L (98-107); Glucose 115 mg/dL (74-99); Magnesium 2.4 mg/dL (1.6-2.3); Non-African American GFR(MDRD) >60 (>60 ml/min/1.73 sqM); Phosphorous 4.1 mg/dL (2.5-4.5); Potassium 3.9 mmol/L (3.5-5.1); Sodium 141 mmol/L (137-145); Total Bilirubin 1.5 mg/dL (0.2-1.3); Total Protein 7.7 g/dL (6.3-8.2)
--- NOTE | 2017-05-07 07:51 | XR ---
EXAMINATION TYPE: XR chest 1V portable DATE OF EXAM: 05/07/2017 HISTORY: Shortness of breath. COMPARISON: 05/06/2017 TECHNIQUE: Single view of the chest is submitted. FINDINGS: Demonstrated are scattered senescent parenchymal change. Persistent but improving perihilar infiltrates. The heart is stable. Hilar and mediastinal structures are within normal limits. Degenerative changes are seen of the dorsal spine. IMPRESSION: 1. Persistent but improving perihilar infiltrates.
[2017-05-07] MEDS: TIOTROPIUM 18 MCG/PUFF INHALER INHALATION SCH (08:13)
[2017-05-07] MEDS: SYMBICORT 160-4.5 MCG INHALER INHALATION SCH ×2 (08:13→20:21)
[2017-05-07] MEDS: ALBUTEROL NEBULIZED 2.5 MG/3 ML INHALATION SCH ×3 (08:14→20:21)
[2017-05-07] MEDS ORDERED: FAMOTIDINE 20 MG TAB PO SCH (09:00)
[2017-05-07] MEDS ORDERED: FUROSEMIDE 40 MG TAB PO SCH (09:00)
[2017-05-07] MEDS: FUROSEMIDE 10 MG/ML 2 ML VIAL IV SCH ×2 (09:25→20:01)
[2017-05-07] MEDS: HEPARIN SODIUM,PORCINE 5,000 UNIT/ML 1 ML VIAL SQ SCH ×2 (09:25→20:01)
[2017-05-07 09:53] LABS: Manual Review Performed
[2017-05-07] MEDS: CYANOCOBALAMIN 1,000 MCG/ML 1 ML VIAL IM SCH (11:08)
[2017-05-07 11:25] LABS: Glucose,Whole Blood 123 mg/dL (75-99)
[2017-05-07] MEDS: amLODIPine 2.5 MG TAB PO SCH ×2 (12:19→20:00)
[2017-05-07] MEDS: THIAMINE 100 MG TAB PO SCH (12:19)
--- NOTE | 2017-05-07 15:24 | P.PN ---
Subjective 04/29/17-This is a 61-year-old male who is being seen, evaluated and examined. This patient is well-known to our services. The patient came into the emergency room status post fall on 04/26/2017. Patient states he fell from his porch which was approximately 3-4 feet of a drop. He stated he was intoxicated with alcohol at the time. Patient stated that he landed on his right-sided chest. Patient denies and loss of consciousness or hitting his head. Patient initially did not have much pain but over the last 2 days the pain has increasingly gotten worse as well as he develop shortness of breath. The patient was taking naproxen at home without relief. Patient states that the pain is consistent moderate and with palpation it becomes more severe. Patient has developed increasing shortness of breath over the last few days as well as well as a productive cough with yellow sputum. She denies any hemoptysis. Patient is known to have history of COPD, patient states he does not use oxygen at home at this time however he has used it in the past.. Patient did undergo a CT of the chest abdomen and pelvis which revealed a small right pneumothorax, acute nondisplaced fractures right posterior seventh through ninth ribs. Some old healing fractures right posterior 10th rib 11th ribs, airspace opacity in the dependent lung bases consistent with atelectasis, possible superimposed right basilar pulmonary contusion. Upon examination the patient's resting up in bed on 2 L of supplemental oxygen. He states he continues to have rib pain with coughing. He is unable to bring up secretions due to pain. Patient states his current medications are effective for pain relief. He denies any fevers, chills, or hemoptysis, nausea, vomiting or diarrhea. 04/30/17- apparently byproducts maker the patient was found to be diaphoretic, pale and lethargic. Patient's SpO2 was 86% on 4 L of supplemental oxygen. The patient's CBG was 118 patient was difficult to arouse. An 18 was called and stat ABGs were drawn and came back critical with a pH of 7.20 pCO2 of 71 and HCO3 26 and pO2 97% the patient was ultimately transferred over to the intensive care unit and put on BiPAP. A stat chest x-ray did show patchy airspace disease seen throughout both lungs, left greater than the right. Of note the patient also was suctioned and chewing tobacco was obtained the patient also vomited up a moderate amount of emesis, mixed with food articles as well as chewing tobacco. Apparently overnight the patient was found to be using chewing tobacco and it was removed from the patient's room and he was educated on the policy stating he could not have chewing tobacco in the hospital. Upon examination the patient is currently on BiPAP and is lethargic, his oxygen saturations have improved with the BiPAP, he does open his eyes spontaneously. The patient does not have any emergency contacts or family members that we are aware of to update we will put on social work to obtain a legal guardian for the patient. 05/01/17- this morning the patient is much more awake and alert. Patient was on BiPAP throughout the night and this morning. BiPAP was removed approximately 8 AM and the patient was transitioned to 10 L high flow nasal cannula with oxygen saturations in the mid 90s. Chest x-ray from this morning was reviewed and shows a mildly increased right infiltrate. Patient is on methadone and Xanax at home and he is requesting we transition to have those put back on his current meds. Education has been provided in regards to these medications and his respiratory status. We will start with methadone and hold on the Xanax at this time. She will also undergo a swallow eval before advancing his diet. 05/02/17 patient seen and evaluated and examined during the rounds in ICU he remains he remains intermittently anxious and agitated OxyIR and respiratory acidosis patient has been resumed on BiPAP currently patient is on IPAP of 15 and EPAP of 5 with 50% oxygen conceive a protocol as well as Haldol as needed and methadone has been resumed and the patient appears to be going through DTs as well, patient is being started on the thiamine and folic acid MVI him a care plan discussed with the primary service and nursing staff at length laboratory data reviewed chest x-ray reviewed as well, critical care time spent 35 minutes 05/03/17, Patient seen and examined in the ICU care plan discussed with the primary service and ICU staff at length patient remains intermittently agitated has been on ciwa protocol overnight. Overnight he required 8 mg of Ativan, patient overall appears slightly calm but is still undergoing active DTs, patient remains on BiPAP 15/5 with 50% oxygen he has been off of BiPAP with high flow oxygen about 8-10 L every 2-3 hour half an hour or so eating some but appetite has been poor he has been noted to have generalized swelling and third spacing and mild anasarca, x-ray from yesterday and laboratory data from today has been reviewed 05/04/17-patient continues on CIWA protocol, however has required less Ativan today than previously. Patient overall appears slightly calm but still has intermittent agitation and is undergoing active DTs. Patient continued on BiPAP 15/5 with 50% of oxygen overnight. Early the patient is on 5 L of supplemental oxygen via nasal cannula. He is noted to have less swelling/third spacing today than previous. Chest x-ray has been reviewed and shows improving CHF. Patient also did receive one-time dose of Lasix yesterday, with good effects. She continues to be short of breath with exertion. Denies any cough or congestion today. 05/05/17- upon examination today the patient is sleepy, is pleasantly confused. Continues on 4 L of supplemental oxygen via nasal cannula. He did use the BiPAP overnight. Edema is improving. Patient's chest x-ray from today is stable. Continues with left lower lobe infiltrate. Patient does become short of breath with exertion. He is still undergoing active DTs however symptoms are slowly improving. He did require Ativan per CIWA protocol overnight. He continues on IV Solu-Medrol. Methadone as scheduled. Nebulizers as scheduled. 05/06/17 patient is being seen today and examined on rounds. Upon examination the patient is resting up in bed on BiPAP according to the nursing staff the patient needed the BiPAP this morning due to oxygen saturations in the high 80s. Currently his oxygen saturations are maintained with the BiPAP in the mid 90s. Chest x-ray from today is stable. Labs are reviewed. We will continue to try to wean down his oxygen demands as low as use of the BiPAP. Objective - Vital Signs Vital signs: Vital Signs Temp 97.5 F L 05/07/17 08:00 Pulse 68 05/07/17 08:33 Resp 18 05/07/17 08:00 BP 125/80 05/07/17 08:00 Pulse Ox 95 05/07/17 08:00 Intake & Output 05/06/17 05/07/17 05/07/17 18:59 06:59 18:59 Intake Total 90 20 Balance 90 20 Weight 94.9 kg 94.9 kg Intake: IV 20 0.9 at KVO 20 Oral 90 Other: Voiding Method Diaper Diaper Diaper Incontinent Incontinent Incontinent # Voids 1 1 # Bowel Movements 1 - Exam GENERAL EXAM: Tired, no apparent distress HEAD: Normocephalic. EYES: Normal reaction of pupils, equal size. NOSE: Clear with pink turbinates. THROAT: No erythema or exudates. NECK: No masses, no JVD. CHEST: No chest wall deformity. LUNGS: Patient noted to have coarse breath sounds with scattered rhonchi and faint end expiratory wheezes. Patient also noted to have some faint bibasilar crackles. Patient also known to have chest wall tenderness on the right side. CVS: S1 and S2 normal with no audible mumurs, regular rhythm. ABDOMEN: No hepatosplenomegaly, normal bowel sounds, no guarding or rigidity. EXTREMITIES: No edema noted, pedal pulses palpable. CENTRAL NERVOUS SYSTEM: No focal deficits, tone is normal in all 4 extremities. - Labs CBC & Chem 7: 05/07/17 06:56 05/07/17 06:56 Labs: Abnormal Lab Results - Last 24 Hours (Table) 05/06/17 05/06/17 05/06/17 Range/Units 11:51 17:04 20:57 Hgb (13.0-17.5) gm/dL Hct (39.0-53.0) % MCV (80.0-100.0) fL MCH (25.0-35.0) pg RDW (11.5-15.5) % Neutrophils # (1.3-7.7) k/uL Lymphocytes # (1.0-4.8) k/uL Chloride (98-107) mmol/L Carbon Dioxide (22-30) mmol/L BUN (9-20) mg/dL Glucose (74-99) mg/dL POC Glucose (mg/dL) 155 H 118 H 110 H (75-99) mg/dL Magnesium (1.6-2.3) mg/dL Total Bilirubin (0.2-1.3) mg/dL AST (17-59) U/L ALT (21-72) U/L 05/07/17 05/07/17 05/07/17 Range/Units 06:26 06:56 06:56 Hgb 18.1 H (13.0-17.5) gm/dL Hct 53.2 H (39.0-53.0) % MCV 112.0 H (80.0-100.0) fL MCH 38.1 H (25.0-35.0) pg RDW 16.0 H (11.5-15.5) % Neutrophils # 7.9 H (1.3-7.7) k/uL Lymphocytes # 0.5 L (1.0-4.8) k/uL Chloride 94 L (98-107) mmol/L Carbon Dioxide 37 H (22-30) mmol/L BUN 29 H (9-20) mg/dL Glucose 115 H (74-99) mg/dL POC Glucose (mg/dL) 119 H (75-99) mg/dL Magnesium 2.4 H (1.6-2.3) mg/dL Total Bilirubin 1.5 H (0.2-1.3) mg/dL AST 161 H (17-59) U/L ALT 189 H (21-72) U/L Assessment and Plan Plan: Assessment Left lower lobe aspiration pneumonia likely related to chewing tobacco Increased lethargy Status post fall Small right sided pneumothorax Multiple right-sided rib fractures Acute on chronic hypoxic hypercapnic respiratory failure COPD Chronic persistent moderate asthma with a component of ALLERGIC asthma Nicotine dependence Plan Medications have been reviewed and will be continued as ordered. We will order a 1 time dose of Lasix 40mg. Continue on IV Solu-Medrol 40 every 8 hours. We will continue to monitor the pneumothorax which seems to be improved. newly developed left lower lobe aspiration pneumonia is stable. Daily chest xrays. Initiate and encourage incentive spirometer. Continue with pulmonary hygiene, coughing and deep breathing exercises, and supportive care. Supplemental oxygen to maintain oxygen saturations of 90% or better. BiPAP as needed and at bedtime. Continue nebulizer treatments. GI and DVT prophylaxis. We will continue to monitor labs/results and adjust treatment as necessary. Further recommendations pending. I performed an examination of the patient and discussed their management with the nurse practitioner. I have reviewed the nurse practitioner's note and agree with the documented findings and plan of care.
[2017-05-07 16:33] LABS: Glucose,Whole Blood 124 mg/dL (75-99)
[2017-05-07] MEDS: LORazepam 2 MG/ML SYRINGE IV PRN (17:31)
--- NOTE | 2017-05-07 17:47 | P.PN ---
Subjective s/p fall and RT sided rib fractures Mr. Craig is a 61-year-old male with a known history of asthma/COPD EtOH abuse, chronic pain and liver disease came to the ER status post fall on 04/26/2017. Patient was intoxicated with all call and had a mechanical fall. Patient landed on the right side of his chest. Denied any headache or head injury or loss of consciousness. Patient has been increasing short of breath and pain with deep breathing. Patient came to the hospital. Patient has been having chronic cough with whitish to yellow sputum. No increasing in quantity of sputum or frequency. Patient had CT of the chest abdomen and pelvis was done in the year showed a small right pneumothorax, acute nondisplaced fractures right posterior seventh through ninth ribs. Patient also had right posterior 10th rib and 11th rib. An air space opacity in the dependent lung bases consistent with atelectasis and superimposed possible right basilar pulmonary contusion.. Currently patient is complaining of pain with coughing and deep breathing. No fever or chills. No nausea vomiting or abdominal Pain. On 04/30/17 - Pt became diaphoretic, pale, lethargic and his O2 sat dropped to 86% on 4 L of supplemental oxygen. ABGs were drawn showed - pH of 7.20 pCO2 of 71 and HCO3 26 and pO2 97% the patient was placed on BiPAP and transferred over to the intensive care unit . Apparently the pt was found chewing tobacco and also threw up once and eventually went into respiratory distress. A stat chest x-ray did show patchy airspace disease seen throughout both lungs. So he might have aspirated. on 05/01/17 Pt. is saturating well on NC, Pt. is agitated and is in DTs. no fever/chills Complete ROS could not be done as the pt is on BiPAP. As per nursing staff report , no other active issues. on 05/02/17 pt is lethargic 05/03/2017 Patient is doing a little bit better Stable on the current medication regimen Patient is only on 5 L supplement oxygen 05/04/17 on 4 l o2 more pleasant today however confused passed his swallow eval 05/05/17 required over 7 mg of ativan overnight confused however more pleasant 72/17 pt was lethargic this am, was noted to have pinpoint pupils with low rr. I directed to give narcan after a review pt was not taking methadone on review of MAPS improved by the time of my eval cxr was reviewed - Exam HEENT: Normocephalic. Neck is supple. Pupils reactive. Nostrils clear. Oral cavity is moist. Ears reveal no drainage. Neck reveals no JVD, carotid bruits, or thyromegaly. CHEST EXAMINATION: Trachea is central. Decreased air entry right lower lobes mainly right side and minimal crackles.Coarse breath sounds in all lung drake. Right lower rib cage tenderness and pain no crepitus heard. CARDIAC: Normal S1, S2 with no gallops. No murmurs ABDOMEN: Soft. Bowel sounds normal. No organomegaly. No abdominal bruits. Extremities: reveal no edema. No clubbing or cyanosis Neurologically alert to self Skin: No rash or skin lesions. Musculoskeletal: No joint swelling or deformity. Normal range of motion. Assessment and Plan Plan: 1. Delirium Tremens, encephalopathy, both metabolic and toxic 1.Acute Hypoxic respiratory failure- due to Aspiration 1 Status post mechanical fall along with EtOH intoxication 2 Small right-sided pneumothorax 3 Right-sided posterior seventh through ninth rib fractures nondisplaced 4 acute on chronic hypoxic respiratory failure 5 COPD with mild exacerbation 6 history of moderately chronic persistent asthma with ALLERGY component 7 EtOH abuse 8 Elevated lactic acidosis due to volume depletion. 9 DVT prophylaxis 10 Mildly elevated liver enzymes 11 Macrocytosis 12. HTN, accelerated PLAN: Slightly improved continue with the Daria Boone when necessary, bnp was elevated Echo will be ordered dc planning sitter at bedside Continue antibiotic therapy fall precautions Objective - Vital Signs Vital signs: Vital Signs Temp 98.5 F 05/07/17 15:53 Pulse 97 05/07/17 16:00 Resp 18 05/07/17 16:00 BP 138/81 05/07/17 15:53 Pulse Ox 92 L 05/07/17 15:53 Intake & Output 05/06/17 05/07/17 05/07/17 18:59 06:59 18:59 Intake Total 90 500 Balance 90 500 Weight 94.9 kg 94.9 kg Intake: IV 20 0.9 at KVO 20 Oral 90 480 Other: Voiding Method Diaper Diaper Diaper Incontinent Incontinent # Voids 1 1 2 # Bowel Movements 1 - Labs CBC & Chem 7: 05/07/17 06:56 05/07/17 06:56 Labs: Abnormal Lab Results - Last 24 Hours (Table) 05/06/17 05/07/17 05/07/17 Range/Units 20:57 06:26 06:56 Hgb 18.1 H (13.0-17.5) gm/dL Hct 53.2 H (39.0-53.0) % MCV 112.0 H (80.0-100.0) fL MCH 38.1 H (25.0-35.0) pg RDW 16.0 H (11.5-15.5) % Neutrophils # 7.9 H (1.3-7.7) k/uL Lymphocytes # 0.5 L (1.0-4.8) k/uL Chloride (98-107) mmol/L Carbon Dioxide (22-30) mmol/L BUN (9-20) mg/dL Glucose (74-99) mg/dL POC Glucose (mg/dL) 110 H 119 H (75-99) mg/dL Magnesium (1.6-2.3) mg/dL Total Bilirubin (0.2-1.3) mg/dL AST (17-59) U/L ALT (21-72) U/L 05/07/17 05/07/17 05/07/17 Range/Units 06:56 11:24 16:30 Hgb (13.0-17.5) gm/dL Hct (39.0-53.0) % MCV (80.0-100.0) fL MCH (25.0-35.0) pg RDW (11.5-15.5) % Neutrophils # (1.3-7.7) k/uL Lymphocytes # (1.0-4.8) k/uL Chloride 94 L (98-107) mmol/L Carbon Dioxide 37 H (22-30) mmol/L BUN 29 H (9-20) mg/dL Glucose 115 H (74-99) mg/dL POC Glucose (mg/dL) 123 H 124 H (75-99) mg/dL Magnesium 2.4 H (1.6-2.3) mg/dL Total Bilirubin 1.5 H (0.2-1.3) mg/dL AST 161 H (17-59) U/L ALT 189 H (21-72) U/L
[2017-05-07] MEDS: ZIPRASIDONE 20 MG VIAL IM SCH (20:01)
[2017-05-07 22:00] LABS: Glucose,Whole Blood 125 mg/dL (75-99)
[2017-05-08 06:30] LABS: Glucose,Whole Blood 151 mg/dL (75-99)
[2017-05-08] MEDS: INSULIN LISPRO (humaLOG) 300 UNIT/3 ML VIAL SQ SCH ×4 (06:33→20:42)
[2017-05-08 07:24] LABS: Basophils % (A) 0 %; CH 37.1; CHCM 33.3; Eosinophils % (A) 0 %; HCT 54.9 % (39.0-53.0); HDW 2.37; HGB 18.5 gm/dL (13.0-17.5); Luc # (Auto) 0.08; Luc % (Auto) 1; Lymphocytes # (A) 0.6 k/uL (1.0-4.8); Lymphocytes % (A) 6 %; MCH 37.7 pg (25.0-35.0); MCHC 33.7 g/dL (31.0-37.0); MCV 111.9 fL (80.0-100.0); Macrocytosis Marked; Mean Platelet Volume 7.5; Monocytes # (A) 0.5 k/uL (0-1.0); Monocytes % (A) 5 %; Neutrophils # (A) 8.8 k/uL (1.3-7.7); Neutrophils % (A) 88 %; RBC 4.91 m/uL (4.30-5.90); RDW 15.8 % (11.5-15.5); WBC (Perox) 9.85
[2017-05-08 07:29] LABS: ALT 216 U/L (21-72); AST 140 U/L (17-59); Alkaline Phosphatase 50 U/L (38-126); Anion Gap 12 mmol/L; Blood Urea Nitrogen 34 mg/dL (9-20); Calcium 9.4 mg/dL (8.4-10.2); Carbon Dioxide 33 mmol/L (22-30); Chloride 93 mmol/L (98-107); Glucose 139 mg/dL (74-99); Non-African American GFR(MDRD) >60 (>60 ml/min/1.73 sqM); Potassium 3.8 mmol/L (3.5-5.1); Sodium 138 mmol/L (137-145); Total Bilirubin 1.8 mg/dL (0.2-1.3); Total Protein 7.1 g/dL (6.3-8.2)
[2017-05-08 08:17] LABS: Manual Review Performed; Toxic Granulation Present
[2017-05-08] MEDS: HEPARIN SODIUM,PORCINE 5,000 UNIT/ML 1 ML VIAL SQ SCH ×2 (08:45→21:02)
[2017-05-08] MEDS: FUROSEMIDE 10 MG/ML 2 ML VIAL IV SCH ×2 (08:45→20:48)
[2017-05-08] MEDS: methylPREDNISolone SOD SUCCI 40 MG/ML 1 ML VIAL IV SCH ×3 (08:46→20:50)
[2017-05-08] MEDS: PIPERACILLIN-TAZOBACTAM 3.375 GM in DEXTROSE/WATER 1 50ML.BAG IVPB SCH ×3 (08:46→23:32)
[2017-05-08] MEDS: CYANOCOBALAMIN 1,000 MCG/ML 1 ML VIAL IM SCH (08:46)
[2017-05-08] MEDS: amLODIPine 2.5 MG TAB PO SCH ×2 (08:46→20:46)
[2017-05-08] MEDS: TIOTROPIUM 18 MCG/PUFF INHALER INHALATION SCH (09:14)
[2017-05-08] MEDS: ALBUTEROL NEBULIZED 2.5 MG/3 ML INHALATION SCH ×3 (09:14→20:10)
[2017-05-08] MEDS: SYMBICORT 160-4.5 MCG INHALER INHALATION SCH ×2 (09:14→20:10)
--- NOTE | 2017-05-08 10:56 | ECHOF ---
Referral Reason:chf MEASUREMENTS -------- HEIGHT: 177.8 cm WEIGHT: 88.0 kg BP: 128/66 RVIDd: 2.8 cm (< 3.3) IVSd: 1.3 cm (0.6 - 1.1) LVIDd: 3.9 cm (3.9 - 5.3) LVPWd: 1.3 cm (0.6 - 1.1) IVSs: 1.8 cm LVIDs: 2.5 cm LVPWs: 1.8 cm LA Diam: 3.9 cm (2.7 - 3.8) LAESV Index (A-L): 18.17 ml/m Ao Diam: 3.4 cm (2.0 - 3.7) AV Cusp: 2.6 cm (1.5 - 2.6) MV EXCURSION: 14.273 mm (> 18.000) MV EF SLOPE: 49 mm/s (70 - 150) EPSS: 0.7 cm MV E Omar: 0.64 m/s MV DecT: 115 ms MV A Omar: 0.84 m/s MV E/A Ratio: 0.77 FINDINGS -------- Resting tachycardia (HR>100bpm). This was a technically good study. The left ventricular size is normal. There is mild concentric left ventricular hypertrophy. Overall left ventricular systolic function is normal with, an EF between 60 - 65 %. The right ventricle is normal in size. Normal LA size by volume 22+/-6 ml/m2. The right atrium is normal in size. Aortic valve is trileaflet and is mildly thickened. The mitral valve is normal. The tricuspid valve appears structurally normal. The pulmonic valve was not well visualized. The aortic root size is normal. IVC Not well visulized. There is no pericardial effusion. CONCLUSIONS -------- 1. Resting tachycardia (HR>100bpm). 2. The mitral valve is normal. 3. The tricuspid valve appears structurally normal. 4. The pulmonic valve was not well visualized. 5. The aortic root size is normal. 6. IVC Not well visulized. 7. There is no pericardial effusion. 8. This was a technically good study. 9. The left ventricular size is normal. 10. There is mild concentric left ventricular hypertrophy. 11. Overall left ventricular systolic function is normal with, an EF between 60 - 65 %. 12. The right ventricle is normal in size. 13. Normal LA size by volume 22+/-6 ml/m2. 14. The right atrium is normal in size. 15. Aortic valve is trileaflet and is mildly thickened. VARYING EXCEPTIONALITIES TEACHER: Zee Montgomery RDCS
[2017-05-08 11:37] LABS: Glucose,Whole Blood 121 mg/dL (75-99)
[2017-05-08] MEDS: THIAMINE 100 MG TAB PO SCH (11:48)
--- NOTE | 2017-05-08 13:36 | P.PN ---
Subjective 04/29/17-This is a 61-year-old male who is being seen, evaluated and examined. This patient is well-known to our services. The patient came into the emergency room status post fall on 04/26/2017. Patient states he fell from his porch which was approximately 3-4 feet of a drop. He stated he was intoxicated with alcohol at the time. Patient stated that he landed on his right-sided chest. Patient denies and loss of consciousness or hitting his head. Patient initially did not have much pain but over the last 2 days the pain has increasingly gotten worse as well as he develop shortness of breath. The patient was taking naproxen at home without relief. Patient states that the pain is consistent moderate and with palpation it becomes more severe. Patient has developed increasing shortness of breath over the last few days as well as well as a productive cough with yellow sputum. She denies any hemoptysis. Patient is known to have history of COPD, patient states he does not use oxygen at home at this time however he has used it in the past.. Patient did undergo a CT of the chest abdomen and pelvis which revealed a small right pneumothorax, acute nondisplaced fractures right posterior seventh through ninth ribs. Some old healing fractures right posterior 10th rib 11th ribs, airspace opacity in the dependent lung bases consistent with atelectasis, possible superimposed right basilar pulmonary contusion. Upon examination the patient's resting up in bed on 2 L of supplemental oxygen. He states he continues to have rib pain with coughing. He is unable to bring up secretions due to pain. Patient states his current medications are effective for pain relief. He denies any fevers, chills, or hemoptysis, nausea, vomiting or diarrhea. 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 Patient's SpO2 was 86% on 4 L of supplemental oxygen. The patient's CBG was 118 patient was difficult to arouse. An 18 was called and stat ABGs were drawn and came back critical with a pH of 7.20 pCO2 of 71 and HCO3 26 and pO2 97% the patient was ultimately transferred over to the intensive care unit and put on BiPAP. A stat chest x-ray did show patchy airspace disease seen throughout both lungs, left greater than the right. Of note the patient also was suctioned and chewing tobacco was obtained the patient also vomited up a moderate amount of emesis, mixed with food articles as well as chewing tobacco. Apparently overnight the patient was found to be using chewing tobacco and it was removed from the patient's room and he was educated on the policy stating he could not have chewing tobacco in the hospital. Upon examination the patient is currently on BiPAP and is lethargic, his oxygen saturations have improved with the BiPAP, he does open his eyes spontaneously. The patient does not have any emergency contacts or family members that we are aware of to update we will put on social work to obtain a legal guardian for the patient. 05/01/17- this morning the patient is much more awake and alert. Patient was on BiPAP throughout the night and this morning. BiPAP was removed approximately 8 AM and the patient was transitioned to 10 L high flow nasal cannula with oxygen saturations in the mid 90s. Chest x-ray from this morning was reviewed and shows a mildly increased right infiltrate. Patient is on methadone and Xanax at home and he is requesting we transition to have those put back on his current meds. Education has been provided in regards to these medications and his respiratory status. We will start with methadone and hold on the Xanax at this time. She will also undergo a swallow eval before advancing his diet. 05/02/17 patient seen and evaluated and examined during the rounds in ICU he remains he remains intermittently anxious and agitated OxyIR and respiratory acidosis patient has been resumed on BiPAP currently patient is on IPAP of 15 and EPAP of 5 with 50% oxygen conceive a protocol as well as Haldol as needed and methadone has been resumed and the patient appears to be going through DTs as well, patient is being started on the thiamine and folic acid MVI him a care plan discussed with the primary service and nursing staff at length laboratory data reviewed chest x-ray reviewed as well, critical care time spent 35 minutes 05/03/17, Patient seen and examined in the ICU care plan discussed with the primary service and ICU staff at length patient remains intermittently agitated has been on ciwa protocol overnight. Overnight he required 8 mg of Ativan, patient overall appears slightly calm but is still undergoing active DTs, patient remains on BiPAP 15/5 with 50% oxygen he has been off of BiPAP with high flow oxygen about 8-10 L every 2-3 hour half an hour or so eating some but appetite has been poor he has been noted to have generalized swelling and third spacing and mild anasarca, x-ray from yesterday and laboratory data from today has been reviewed 05/04/17-patient continues on CIWA protocol, however has required less Ativan today than previously. Patient overall appears slightly calm but still has intermittent agitation and is undergoing active DTs. Patient continued on BiPAP 15/5 with 50% of oxygen overnight. Early the patient is on 5 L of supplemental oxygen via nasal cannula. He is noted to have less swelling/third spacing today than previous. Chest x-ray has been reviewed and shows improving CHF. Patient also did receive one-time dose of Lasix yesterday, with good effects. She continues to be short of breath with exertion. Denies any cough or congestion today. 05/05/17- upon examination today the patient is sleepy, is pleasantly confused. Continues on 4 L of supplemental oxygen via nasal cannula. He did use the BiPAP overnight. Edema is improving. Patient's chest x-ray from today is stable. Continues with left lower lobe infiltrate. Patient does become short of breath with exertion. He is still undergoing active DTs however symptoms are slowly improving. He did require Ativan per CIWA protocol overnight. He continues on IV Solu-Medrol. Methadone as scheduled. Nebulizers as scheduled. 05/06/17 patient is being seen today and examined on rounds. Upon examination the patient is resting up in bed on BiPAP according to the nursing staff the patient needed the BiPAP this morning due to oxygen saturations in the high 80s. Currently his oxygen saturations are maintained with the BiPAP in the mid 90s. Chest x-ray from today is stable. Labs are reviewed. We will continue to try to wean down his oxygen demands as low as use of the BiPAP. 05/07/17 patient is being seen in evaluated and examined on rounds today. The patient was on BiPAP during the night and most of the morning. At this time he is currently on 5 L of nasal cannula and seems to be holding his oxygen saturations at this time. Patient still has intermittent confusion. Continues on CIWA protocol. He continues to have some shortness of breath with exertion and extensive conversation. The BiPAP is to be used every night and as necessary during the day hours. 05/08/17 patient is being reevaluated and seen today on rounds. Patient is currently on 5-6 L of supplemental oxygen. He did utilize BiPAP machine throughout the night. Patient underwent an echocardiogram this morning. Echo does show resting tachycardia and his ejection fraction between 60 and 65%. Of note last night the patient became agitated he got out of bed and pulled his IV out, as well as was incontinent of stool and urine. Patient was able to be redirected he was cleaned up a new IV was started Ativan was given the patient was put back on BiPAP vital signs remained stable and the sitter state at bedside. Objective - Vital Signs Vital signs: Vital Signs Temp 98.0 F 05/08/17 11:58 Pulse 72 05/08/17 11:58 Resp 18 05/08/17 11:58 BP 130/88 05/08/17 11:58 Pulse Ox 94 L 05/08/17 11:58 Intake & Output 05/07/17 05/08/17 05/08/17 18:59 06:59 18:59 Intake Total 500 1150 600 Balance 500 1150 600 Weight 94.9 kg 88 kg 88 kg Intake: IV 20 550 0.9 at KVO 20 400 Piperacillin-Tazobactam 3 150 .375 gm In Dextrose/Water 1 50ml.bag @ 12.5 mls/hr IVPB Q8HR [facility] Rx#: [id number] Oral 480 600 600 Other: Voiding Method Diaper Diaper Diaper # Voids 2 3 1 - Exam GENERAL EXAM: Tired, no apparent distress HEAD: Normocephalic. EYES: Normal reaction of pupils, equal size. NOSE: Clear with pink turbinates. THROAT: No erythema or exudates. NECK: No masses, no JVD. CHEST: No chest wall deformity. LUNGS: Patient noted to have coarse breath sounds with scattered rhonchi and faint end expiratory wheezes. Patient also noted to have some faint bibasilar crackles. Patient also known to have chest wall tenderness on the right side. CVS: S1 and S2 normal with no audible mumurs, regular rhythm. ABDOMEN: No hepatosplenomegaly, normal bowel sounds, no guarding or rigidity. EXTREMITIES: No edema noted, pedal pulses palpable. CENTRAL NERVOUS SYSTEM: No focal deficits, tone is normal in all 4 extremities. - Labs CBC & Chem 7: 05/08/17 06:27 05/08/17 06:27 Labs: Abnormal Lab Results - Last 24 Hours (Table) 05/07/17 05/07/17 05/08/17 Range/Units 16:30 21:25 06:22 Hgb (13.0-17.5) gm/dL Hct (39.0-53.0) % MCV (80.0-100.0) fL MCH (25.0-35.0) pg RDW (11.5-15.5) % Neutrophils # (1.3-7.7) k/uL Lymphocytes # (1.0-4.8) k/uL Chloride (98-107) mmol/L Carbon Dioxide (22-30) mmol/L BUN (9-20) mg/dL Glucose (74-99) mg/dL POC Glucose (mg/dL) 124 H 125 H 151 H (75-99) mg/dL Total Bilirubin (0.2-1.3) mg/dL AST (17-59) U/L ALT (21-72) U/L 05/08/17 05/08/17 05/08/17 Range/Units 06:27 06:27 11:33 Hgb 18.5 H (13.0-17.5) gm/dL Hct 54.9 H (39.0-53.0) % MCV 111.9 H (80.0-100.0) fL MCH 37.7 H (25.0-35.0) pg RDW 15.8 H (11.5-15.5) % Neutrophils # 8.8 H (1.3-7.7) k/uL Lymphocytes # 0.6 L (1.0-4.8) k/uL Chloride 93 L (98-107) mmol/L Carbon Dioxide 33 H (22-30) mmol/L BUN 34 H (9-20) mg/dL Glucose 139 H (74-99) mg/dL POC Glucose (mg/dL) 121 H (75-99) mg/dL Total Bilirubin 1.8 H (0.2-1.3) mg/dL AST 140 H (17-59) U/L ALT 216 H (21-72) U/L Assessment and Plan Plan: Assessment Left lower lobe aspiration pneumonia likely related to chewing tobacco Increased lethargy Status post fall Small right sided pneumothorax Multiple right-sided rib fractures Acute on chronic hypoxic hypercapnic respiratory failure COPD Chronic persistent moderate asthma with a component of ALLERGIC asthma Nicotine dependence Plan Medications have been reviewed and will be continued as ordered. Continue with drug safety scientist. We will decrease the patient's steroids to Solu-Medrol 40 mg daily. We will continue to monitor the pneumothorax which seems to be improved. newly developed left lower lobe aspiration pneumonia is stable. Daily chest xrays. Initiate and encourage incentive spirometer. Continue with pulmonary hygiene, coughing and deep breathing exercises, and supportive care. Supplemental oxygen to maintain oxygen saturations of 90% or better. BiPAP as needed and at bedtime. Continue nebulizer treatments. GI and DVT prophylaxis. We will continue to monitor labs/results and adjust treatment as necessary. Further recommendations pending. I performed an examination of the patient and discussed their management with the nurse practitioner. I have reviewed the nurse practitioner's note and agree with the documented findings and plan of care.
--- NOTE | 2017-05-08 16:41 | P.PN ---
Subjective s/p fall and RT sided rib fractures Mr. Craig is a 61-year-old male with a known history of asthma/COPD EtOH abuse, chronic pain and liver disease came to the ER status post fall on 04/26/2017. Patient was intoxicated with all call and had a mechanical fall. Patient landed on the right side of his chest. Denied any headache or head injury or loss of consciousness. Patient has been increasing short of breath and pain with deep breathing. Patient came to the hospital. Patient has been having chronic cough with whitish to yellow sputum. No increasing in quantity of sputum or frequency. Patient had CT of the chest abdomen and pelvis was done in the year showed a small right pneumothorax, acute nondisplaced fractures right posterior seventh through ninth ribs. Patient also had right posterior 10th rib and 11th rib. An air space opacity in the dependent lung bases consistent with atelectasis and superimposed possible right basilar pulmonary contusion.. Currently patient is complaining of pain with coughing and deep breathing. No fever or chills. No nausea vomiting or abdominal Pain. On 04/30/17 - Pt became diaphoretic, pale, lethargic and his O2 sat dropped to 86% on 4 L of supplemental oxygen. ABGs were drawn showed - pH of 7.20 pCO2 of 71 and HCO3 26 and pO2 97% the patient was placed on BiPAP and transferred over to the intensive care unit . Apparently the pt was found chewing tobacco and also threw up once and eventually went into respiratory distress. A stat chest x-ray did show patchy airspace disease seen throughout both lungs. So he might have aspirated. on 05/01/17 Pt. is saturating well on NC, Pt. is agitated and is in DTs. no fever/chills Complete ROS could not be done as the pt is on BiPAP. As per nursing staff report , no other active issues. on 05/02/17 pt is lethargic 05/03/2017 Patient is doing a little bit better Stable on the current medication regimen Patient is only on 5 L supplement oxygen 05/04/17 on 4 l o2 more pleasant today however confused passed his swallow eval 05/05/17 required over 7 mg of ativan overnight confused however more pleasant 72/17 pt was lethargic this am, was noted to have pinpoint pupils with low rr. I directed to give narcan after a review pt was not taking methadone on review of MAPS improved by the time of my eval cxr was reviewed 05/08/2017 Patient is more awake today is able to answer questions appropriately However does does have certain odd conversations intermittently Patient states that he would like to go home States that he has a hard time wearing oxygen at this time. Denies having any complaints including cough fevers chills headaches blurry vision chest pain difficulty breathing nausea vomiting or diarrhea - Exam HEENT: Normocephalic. Neck is supple. Pupils reactive. Nostrils clear. Oral cavity is moist. Ears reveal no drainage. Neck reveals no JVD, carotid bruits, or thyromegaly. CHEST EXAMINATION: Trachea is central. Decreased air entry right lower lobes mainly right side and minimal crackles.Coarse breath sounds in all lung drake. Right lower rib cage tenderness and pain no crepitus heard. CARDIAC: Normal S1, S2 with no gallops. No murmurs ABDOMEN: Soft. Bowel sounds normal. No organomegaly. No abdominal bruits. Extremities: reveal no edema. No clubbing or cyanosis Neurologically alert to self Skin: No rash or skin lesions. Musculoskeletal: No joint swelling or deformity. Normal range of motion. Assessment and Plan Plan: 1. Delirium Tremens, encephalopathy, both metabolic and toxic 1.Acute Hypoxic respiratory failure- due to Aspiration 1 Status post mechanical fall along with EtOH intoxication 2 Small right-sided pneumothorax 3 Right-sided posterior seventh through ninth rib fractures nondisplaced 4 acute on chronic hypoxic respiratory failure 5 COPD with mild exacerbation 6 history of moderately chronic persistent asthma with ALLERGY component 7 EtOH abuse 8 Elevated lactic acidosis due to volume depletion. 9 DVT prophylaxis 10 Mildly elevated liver enzymes 11 Macrocytosis 12. HTN, accelerated #13. Acute diastolic heart failure this is likely due to tachyphylaxis. Patient was undergoing withdrawals at that time. PLAN: We'll start the patient on Cardizem 30 mg by mouth 3 times a day Titrate down oxygen as tolerated Patient is not symptomatically or clinically appear like a patient with pneumonia We'll repeat a chest x-ray in the a.m. Guardianship was obtained from the patient Placement likely in the next 24-48 hours Continue antibiotic therapy fall precautions Objective - Vital Signs Vital signs: Vital Signs Temp 98.0 F 05/08/17 11:58 Pulse 93 05/08/17 13:51 Resp 16 05/08/17 13:51 BP 130/88 05/08/17 11:58 Pulse Ox 94 L 05/08/17 11:58 Intake & Output 05/07/17 05/08/17 05/08/17 18:59 06:59 18:59 Intake Total 500 1150 1490 Output Total 300 Balance 500 1150 1190 Weight 94.9 kg 88 kg 88 kg Intake: IV 20 550 210 0.9 at KVO 20 400 160 Piperacillin-Tazobactam 3 150 50 .375 gm In Dextrose/Water 1 50ml.bag @ 12.5 mls/hr IVPB Q8HR [facility] Rx#: [id number] Oral 570 025 1237 Output: Urine 300 Other: Voiding Method Diaper Diaper Diaper # Voids 2 3 2 # Bowel Movements 2 - Labs CBC & Chem 7: 05/08/17 06:27 05/08/17 06:27 Labs: Abnormal Lab Results - Last 24 Hours (Table) 05/07/17 05/08/17 05/08/17 Range/Units 21:25 06:22 06:27 Hgb 18.5 H (13.0-17.5) gm/dL Hct 54.9 H (39.0-53.0) % MCV 111.9 H (80.0-100.0) fL MCH 37.7 H (25.0-35.0) pg RDW 15.8 H (11.5-15.5) % Neutrophils # 8.8 H (1.3-7.7) k/uL Lymphocytes # 0.6 L (1.0-4.8) k/uL Chloride (98-107) mmol/L Carbon Dioxide (22-30) mmol/L BUN (9-20) mg/dL Glucose (74-99) mg/dL POC Glucose (mg/dL) 125 H 151 H (75-99) mg/dL Total Bilirubin (0.2-1.3) mg/dL AST (17-59) U/L ALT (21-72) U/L 05/08/17 05/08/17 Range/Units 06:27 11:33 Hgb (13.0-17.5) gm/dL Hct (39.0-53.0) % MCV (80.0-100.0) fL MCH (25.0-35.0) pg RDW (11.5-15.5) % Neutrophils # (1.3-7.7) k/uL Lymphocytes # (1.0-4.8) k/uL Chloride 93 L (98-107) mmol/L Carbon Dioxide 33 H (22-30) mmol/L BUN 34 H (9-20) mg/dL Glucose 139 H (74-99) mg/dL POC Glucose (mg/dL) 121 H (75-99) mg/dL Total Bilirubin 1.8 H (0.2-1.3) mg/dL AST 140 H (17-59) U/L ALT 216 H (21-72) U/L
[2017-05-08 16:59] LABS: Glucose,Whole Blood 164 mg/dL (75-99)
[2017-05-08 20:25] LABS: Glucose,Whole Blood 128 mg/dL (75-99)
[2017-05-08] MEDS: DILTIAZEM ORAL 30 MG TAB PO SCH (20:46)
[2017-05-08] MEDS: ZIPRASIDONE 20 MG VIAL IM SCH (20:52)
[2017-05-08 23:13] LABS: Magnesium 2.1 mg/dL (1.6-2.3)
[2017-05-08] MEDS ORDERED: Potassium Replacement Protocol 1 EACH MISC MISCELLANE PRN (23:26)
[2017-05-09] MEDS ORDERED: POTASSIUM CHLORIDE 10 MEQ, LIDOCAINE 2% INJ 10 MG in SODIUM CHLORIDE 0.9% 100 ML IV SCH ×3
[2017-05-09] MEDS: POTASSIUM CHLORIDE ER 20 MEQ TAB.ER PO SCH ×2 (00:06→01:08)
[2017-05-09 03:07] LABS: Basophils % (A) 0 %; CH 37.2; CHCM 33.9; Eosinophils # (A) 0.1 k/uL (0-0.7); Eosinophils % (A) 1 %; HCT 52.5 % (39.0-53.0); HDW 2.34; HGB 17.8 gm/dL (13.0-17.5); Luc % (Auto) 1; Lymphocytes # (A) 0.6 k/uL (1.0-4.8); Lymphocytes % (A) 6 %; MCH 37.5 pg (25.0-35.0); MCV 110.5 fL (80.0-100.0); Macrocytosis Marked; Mean Platelet Volume 7.8; Monocytes # (A) 0.4 k/uL (0-1.0); Monocytes % (A) 4 %; Neutrophils # (A) 9.2 k/uL (1.3-7.7); Neutrophils % (A) 89 %; RBC 4.75 m/uL (4.30-5.90); RDW 15.8 % (11.5-15.5); WBC 10.4 k/uL (3.8-10.6); WBC (Perox) 10.43
[2017-05-09 03:50] LABS: Anion Gap 12 mmol/L; Calcium 9.4 mg/dL (8.4-10.2); Carbon Dioxide 31 mmol/L (22-30); Chloride 93 mmol/L (98-107); Glucose 178 mg/dL (74-99); Non-African American GFR(MDRD) >60 (>60 ml/min/1.73 sqM); Sodium 136 mmol/L (137-145); Total Bilirubin 1.1 mg/dL (0.2-1.3); Total Protein 6.3 g/dL (6.3-8.2)
[2017-05-09 04:02] LABS: ALT 163 U/L (21-72); AST 87 U/L (17-59); Blood Urea Nitrogen 38 mg/dL (9-20); Potassium 3.6 mmol/L (3.5-5.1)
[2017-05-09 04:03] LABS: Alkaline Phosphatase 44 U/L (38-126)
[2017-05-09] MEDS ORDERED: Potassium Replacement Protocol 1 EACH MISC MISCELLANE PRN (04:15)
[2017-05-09] MEDS: POTASSIUM CHLORIDE 10 MEQ, LIDOCAINE 2% INJ 10 MG in SODIUM CHLORIDE 0.9% 100 ML IV SCH ×2 (05:10→06:09)
[2017-05-09] MEDS: INSULIN LISPRO (humaLOG) 300 UNIT/3 ML VIAL SQ SCH ×4 (05:53→21:09)
[2017-05-09 05:54] LABS: Glucose,Whole Blood 151 mg/dL (75-99)
[2017-05-09] MEDS: LORazepam 2 MG/ML SYRINGE IV PRN ×4 (05:58→23:29)
[2017-05-09] MEDS: CYANOCOBALAMIN 1,000 MCG/ML 1 ML VIAL IM SCH (08:25)
[2017-05-09] MEDS: amLODIPine 2.5 MG TAB PO SCH ×2 (08:25→21:03)
[2017-05-09] MEDS: DILTIAZEM ORAL 30 MG TAB PO SCH ×3 (08:25→21:03)
[2017-05-09] MEDS: PIPERACILLIN-TAZOBACTAM 3.375 GM in DEXTROSE/WATER 1 50ML.BAG IVPB SCH ×3 (08:30→23:21)
[2017-05-09] MEDS: HEPARIN SODIUM,PORCINE 5,000 UNIT/ML 1 ML VIAL SQ SCH ×2 (08:30→21:03)
[2017-05-09] MEDS: methylPREDNISolone SOD SUCCI 40 MG/ML 1 ML VIAL IV SCH ×2 (08:30→21:03)
[2017-05-09] MEDS: FUROSEMIDE 10 MG/ML 2 ML VIAL IV SCH ×2 (08:30→21:03)
--- NOTE | 2017-05-09 08:43 | XR ---
EXAMINATION TYPE: XR chest 1V portable DATE OF EXAM: 05/09/2017 COMPARISON: Prior chest x-ray 05/07/2017 HISTORY: Difficulty breathing TECHNIQUE: Single frontal view of the chest is obtained. FINDINGS: Heart size is stable and may be borderline enlarged although patient is rotated. Lung volu mes are low. No evident pneumothorax or pleural effusion. There are overlying cardiac leads. IMPRESSION: Findings are similar to prior exam. Expiratory rotated exam. Suspect cardiomegaly. There may be some improvement in the interstitium, volume status.
[2017-05-09] MEDS: ALBUTEROL NEBULIZED 2.5 MG/3 ML INHALATION SCH ×3 (08:51→20:49)
[2017-05-09] MEDS: SYMBICORT 160-4.5 MCG INHALER INHALATION SCH ×2 (08:52→20:49)
[2017-05-09] MEDS: TIOTROPIUM 18 MCG/PUFF INHALER INHALATION SCH (11:23)
--- NOTE | 2017-05-09 11:51 | P.PN ---
Subjective 04/29/17-This is a 61-year-old male who is being seen, evaluated and examined. This patient is well-known to our services. The patient came into the emergency room status post fall on 04/26/2017. Patient states he fell from his porch which was approximately 3-4 feet of a drop. He stated he was intoxicated with alcohol at the time. Patient stated that he landed on his right-sided chest. Patient denies and loss of consciousness or hitting his head. Patient initially did not have much pain but over the last 2 days the pain has increasingly gotten worse as well as he develop shortness of breath. The patient was taking naproxen at home without relief. Patient states that the pain is consistent moderate and with palpation it becomes more severe. Patient has developed increasing shortness of breath over the last few days as well as well as a productive cough with yellow sputum. She denies any hemoptysis. Patient is known to have history of COPD, patient states he does not use oxygen at home at this time however he has used it in the past.. Patient did undergo a CT of the chest abdomen and pelvis which revealed a small right pneumo thorax , acute nondisplaced fractures right posterior seventh through ninth ribs. Some old healing fractures right posterior 10th rib 11th ribs, airspace opacity in the dependent lung bases consistent with atelectasis, possible superimposed right basilar pulmonary contusion. Upon examination the patient's resting up in bed on 2 L of supplemental oxygen. He states he continues to have rib pain with coughing. He is unable to bring up secretions due to pain. Patient states his current medications are effective for pain relief. He denies any fevers, chills, or hemoptysis, nausea, vomiting or diarrhea. 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 Patient's SpO2 was 86% on 4 L of supplemental oxygen. The patient's CBG was 118 patient was difficult to arouse. An 18 was called and stat ABGs were drawn and came back critical with a pH of 7.20 pCO2 of 71 and HCO3 26 and pO2 97% the patient was ultimately transferred over to the intensive care unit and put on BiPAP. A stat chest x-ray did show patchy airspace disease seen throughout both lungs, left greater than the right. Of note the patient also was suctioned and chewing tobacco was obtained the patient also vomited up a moderate amount of emesis, mixed with food articles as well as chewing tobacco. Apparently overnight the patient was found to be using chewing tobacco and it was removed from the patient's room and he was educated on the policy stating he could not have chewing tobacco in the hospital. Upon examination the patient is currently on BiPAP and is lethargic, his oxygen saturations have improved with the BiPAP, he does open his eyes spontaneously. The patient does not have any emergency contacts or family members that we are aware of to update we will put on social work to obtain a legal guardian for the patient. 05/01/17- this morning the patient is much more awake and alert. Patient was on BiPAP throughout the night and this morning. BiPAP was removed approximately 8 AM and the patient was transitioned to 10 L high flow nasal cannula with oxygen saturations in the mid 90s. Chest x-ray from this morning was reviewed and shows a mildly increased right infiltrate. Patient is on methadone and Xanax at home and he is requesting we transition to have those put back on his current meds. Education has been provided in regards to these medications and his respiratory status. We will start with methadone and hold on the Xanax at this time. She will also undergo a swallow eval before advancing his diet. 05/02/17 patient seen and evaluated and examined during the rounds in ICU he remains he remains intermittently anxious and agitated OxyIR and respiratory acidosis patient has been resumed on BiPAP currently patient is on IPAP of 15 and EPAP of 5 with 50% oxygen conceive a protocol as well as Haldol as needed and methadone has been resumed and the patient appears to be going through DTs as well, patient is being started on the thiamine and folic acid MVI him a care plan discussed with the primary service and nursing staff at length laboratory data reviewed chest x-ray reviewed as well, critical care time spent 35 minutes 05/03/17, Patient seen and examined in the ICU care plan discussed with the primary service and ICU staff at length patient remains intermittently agitated has been on ciwa protocol overnight. Overnight he required 8 mg of Ativan, patient overall appears slightly calm but is still undergoing active DTs, patient remains on BiPAP 15/5 with 50% oxygen he has been off of BiPAP with high flow oxygen about 8-10 L every 2-3 hour half an hour or so eating some but appetite has been poor he has been noted to have generalized swelling and third spacing and mild anasarca, x-ray from yesterday and laboratory data from today has been reviewed 05/04/17-patient continues on CIWA protocol, however has required less Ativan today than previously. Patient overall appears slightly calm but still has intermittent agitation and is undergoing active DTs. Patient continued on BiPAP 15/5 with 50% of oxygen overnight. Early the patient is on 5 L of supplemental oxygen via nasal cannula. He is noted to have less swelling/third spacing today than previous. Chest x-ray has been reviewed and shows improving CHF. Patient also did receive one-time dose of Lasix yesterday, with good effects. She continues to be short of breath with exertion. Denies any cough or congestion today. 05/05/17- upon examination today the patient is sleepy, is pleasantly confused. Continues on 4 L of supplemental oxygen via nasal cannula. He did use the BiPAP overnight. Edema is improving. Patient's chest x-ray from today is stable. Continues with left lower lobe infiltrate. Patient does become short of breath with exertion. He is still undergoing active DTs however symptoms are slowly improving. He did require Ativan per CIWA protocol overnight. He continues on IV Solu-Medrol. Methadone as scheduled. Nebulizers as scheduled. 05/06/17 patient is being seen today and examined on rounds. Upon examination the patient is resting up in bed on BiPAP according to the nursing staff the patient needed the BiPAP this morning due to oxygen saturations in the high 80s. Currently his oxygen saturations are maintained with the BiPAP in the mid 90s. Chest x-ray from today is stable. Labs are reviewed. We will continue to try to wean down his oxygen demands as low as use of the BiPAP. 05/07/17 patient is being seen in evaluated and examined on rounds today. The patient was on BiPAP during the night and most of the morning. At this time he is currently on 5 L of nasal cannula and seems to be holding his oxygen saturations at this time. Patient still has intermittent confusion. Continues on CIWA protocol. He continues to have some shortness of breath with exertion and extensive conversation. The BiPAP is to be used every night and as necessary during the day hours. 05/08/17 patient is being reevaluated and seen today on rounds. Patient is currently on 5-6 L of supplemental oxygen. He did utilize BiPAP machine throughout the night. Patient underwent an echocardiogram this morning. Echo does show resting tachycardia and his ejection fraction between 60 and 65%. Of note last night the patient became agitated he got out of bed and pulled his IV out, as well as was incontinent of stool and urine. Patient was able to be redirected he was cleaned up a new IV was started Ativan was given the patient was put back on BiPAP vital signs remained stable and the sitter state at bedside. 05/09/17, patient seen and evaluated exam and he is slightly more awake he remains on supplemental oxygen patient of note that has been more calm and comfortable during the day however nighttime because anxious and agitated however he has been agreeable for a BiPAP machine which she's been using at nighttime, supplemental oxygen was gradually being titrated down now down to 5 L sats remained stable and low 90s Objective - Vital Signs Vital signs: Vital Signs Temp 97.9 F 05/09/17 08:00 Pulse 87 05/09/17 08:00 Resp 20 05/09/17 08:00 BP 120/83 05/09/17 08:00 Pulse Ox 98 05/09/17 08:00 Intake & Output 05/08/17 05/09/17 05/09/17 18:59 06:59 18:59 Intake Total 1490 623 400 Output Total 300 Balance 1190 623 400 Weight 88 kg 89 kg Intake: IV 210 623 0.9 at KVO 160 320 Furosemide 20mg/2mL 2 IV Solu-Medrol 40mg/1mL 1 Piperacillin-Tazobactam 3 50 100 .375 gm In Dextrose/Water 1 50ml.bag @ 12.5 mls/hr IVPB Q8HR EL Rx#: [id number] Potassium Chloride 10 meq 200 Lidocaine 2% Inj 10 mg In Sodium Chloride 0.9% 100 ml @ 100 mls/hr IV Q1HR EL Rx#:[id number] Oral 1280 400 Output: Urine 300 Other: Voiding Method Toilet Toilet Urinal Urinal Diaper Diaper # Voids 2 2 # Bowel Movements 2 - Exam GENERAL EXAM: Tired, no apparent distress HEAD: Normocephalic. EYES: Normal reaction of pupils, equal size. NOSE: Clear with pink turbinates. THROAT: No erythema or exudates. NECK: No masses, no JVD. CHEST: No chest wall deformity. LUNGS: Patient noted to have coarse breath sounds with scattered rhonchi and faint end expiratory wheezes. Patient also noted to have some faint bibasilar crackles. Patient also known to have chest wall tenderness on the right side. CVS: S1 and S2 normal with no audible mumurs, regular rhythm. ABDOMEN: No hepatosplenomegaly, normal bowel sounds, no guarding or rigidity. EXTREMITIES: No edema noted, pedal pulses palpable. CENTRAL NERVOUS SYSTEM: No focal deficits, tone is normal in all 4 extremities. - Labs CBC & Chem 7: 05/09/17 02:41 05/09/17 08:12 Labs: Abnormal Lab Results - Last 24 Hours (Table) 05/08/17 05/08/17 05/08/17 Range/Units 16:51 20:23 22:45 Hgb (13.0-17.5) gm/dL MCV (80.0-100.0) fL MCH (25.0-35.0) pg RDW (11.5-15.5) % Neutrophils # (1.3-7.7) k/uL Lymphocytes # (1.0-4.8) k/uL Sodium (137-145) mmol/L Potassium 3.0 L* (3.5-5.1) mmol/L Chloride (98-107) mmol/L Carbon Dioxide (22-30) mmol/L BUN (9-20) mg/dL Glucose (74-99) mg/dL POC Glucose (mg/dL) 164 H 128 H (75-99) mg/dL AST (17-59) U/L ALT (21-72) U/L 05/09/17 05/09/17 05/09/17 Range/Units 02:41 02:41 05:50 Hgb 17.8 H (13.0-17.5) gm/dL MCV 110.5 H (80.0-100.0) fL MCH 37.5 H (25.0-35.0) pg RDW 15.8 H (11.5-15.5) % Neutrophils # 9.2 H (1.3-7.7) k/uL Lymphocytes # 0.6 L (1.0-4.8) k/uL Sodium 136 L (137-145) mmol/L Potassium (3.5-5.1) mmol/L Chloride 93 L (98-107) mmol/L Carbon Dioxide 31 H (22-30) mmol/L BUN 38 H (9-20) mg/dL Glucose 178 H (74-99) mg/dL POC Glucose (mg/dL) 151 H (75-99) mg/dL AST 87 H (17-59) U/L ALT 163 H (21-72) U/L Assessment and Plan Plan: Acute on chronic hypoxic hypercapnic respiratory failure, patient has been on supplemental oxygen during the day and BiPAP at nighttime and when necessary during the day erythrocytosis likely related to chronic hypoxic respiratory failure, and hypokalemia patient is on replacement protocol Left lower lobe aspiration pneumonia likely related to chewing tobacco Increased lethargy, related to above Status post fall Small right sided pneumothorax Multiple right-sided rib fractures severeCOPD Chronic persistent moderate asthma with a component of ALLERGIC asthma Nicotine dependence chronic pain syndrome on methadone Plan Medications have been reviewed and will be continued as ordered. 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 We will decrease the patient's steroids to Solu-Medrol 40 mg daily. We will continue to monitor the pneumothorax which seems to be improved. newly developed left lower lobe aspiration pneumonia is stable. Daily chest xrays. Initiate and encourage incentive spirometer. Continue with pulmonary hygiene, coughing and deep breathing exercises, and supportive care. Supplemental oxygen to maintain oxygen saturations of 90% or better. we will continue to titrate oxygen down as tolerated, BiPAP as needed and at bedtimeto be used more regularly. Continue nebulizer treatments. GI and DVT prophylaxis. We will continue to monitor labs/results and adjust treatment as necessary. Further recommendations pending.
--- NOTE | 2017-05-09 11:57 | P.PN ---
Subjective Principal diagnosis: 05/05/17- This is a 73-year-old pleasant male being seen examined and evaluated today in the intensive care unit. This patient is well-known to us services. This patient has had multiple admissions due to COPD exacerbations, respiratory failure and recurrent pneumonia. He was recently discharged on 04/22/2017 for COPD exacerbation. He was visited by home health care nurses and they noted him to be weak and pale with severe shortness of breath on exertion. The patient chronically uses home oxygen 3 L via nasal cannula at all times. His home health care nurse suggested he come into the emergency room. While he was in the emergency room his workup included a chest x-ray that showed chronic emphysema changes without any acute pulmonary process. The patient did note to be short of breath and was placed on BiPAP with an FiO2 of 40%. His lab workup revealed a hemoglobin of 7.7 which is a decrease from 15.5 on April 26. Patient received 2 units of packed red blood cells in the emergency room and was found to be occult positive patient also was continuing his discharge medications of prednisone as well as antibiotics from previous admission. Upon examination the patient's resting up in bed on 4 L of supplemental oxygen via nasal cannula , he is noted to have severe shortness of breath with exertion or extensive conversation. Patient has had a congested cough however difficulty with bringing up secretions. Of note the patient states that he did have a dark black bowel movement 5 days ago, and he has not had one since. Currently the patient is hemodynamically stable, current hemoglobin is 8.3. Patient is tolerating his clear liquid diet. Patient is also being seen by GI and possibly will undergo a scope in the next 48 hours, once respiratory status improved. 05/06/17 this patient is seen and examined today on rounds. The patient is currently in the ICU. Apparently overnight the patient had some increase in abdominal pain and a hemoglobin that went down to 7.9. GI was updated and ordered a chest x-ray which showed no acute process. Patient did receive 1 unit of packed red blood cells and is now at a hemoglobin of 9.1. Patient did have another black-colored stool this morning. We have consulted with GI and determined to go ahead with the patient's EGD. Patient continues to be short of breath with exertion or extensive conversation, however has improved slightly compared to yesterday's.. Patient continues to complain of a mild cough however it is nonproductive at this time. 05/07/17- The patient has been downgraded from the ICU. He is currenlty being examined on the med/surg unit. Continues on 3LPM of supplemental oxygen. 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 long segment of Bang's esophagus. Moderate size hiatal hernia. Hgb today 8.1, patient will have one unit of PRBCs. Patient remains short of breath. Abdominal pain improved. Patient had a formed black stool this morning. Patient is being set up for discharge to a rehab facility, once stable. 05/08/17- patient is being seen and examined today on the medical surgical unit. Patient did receive 1 unit of packed red blood cells yesterday and his repeat CBC this morning shows a hemoglobin of 7.4. He has received a total of 4 infusions of packed red blood cells, this admission. Shortness of breath has remained persistent with minimal exertion and extensive conversation. As a baseline the patient has end-stage COPD. Patient did complain of some diarrhea overnight currently he is being worked up for possible C. diff awaiting those results. 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, patient noted to have compression fracture of T6 T7 T9 and L2 and progression of T9 fracture has been noted compared to previous exam Objective - Vital Signs Vital signs: Vital Signs Temp 97.9 F 05/09/17 08:00 Pulse 87 05/09/17 08:00 Resp 20 05/09/17 08:00 BP 120/83 05/09/17 08:00 Pulse Ox 98 05/09/17 08:00 Intake & Output 05/08/17 05/09/17 05/09/17 18:59 06:59 18:59 Intake Total 1490 623 400 Output Total 300 Balance 1190 623 400 Weight 88 kg 89 kg Intake: IV 210 623 0.9 at KVO 160 320 Furosemide 20mg/2mL 2 IV Solu-Medrol 40mg/1mL 1 Piperacillin-Tazobactam 3 50 100 .375 gm In Dextrose/Water 1 50ml.bag @ 12.5 mls/hr IVPB Q8HR EL Rx#: [id number] Potassium Chloride 10 meq 200 Lidocaine 2% Inj 10 mg In Sodium Chloride 0.9% 100 ml @ 100 mls/hr IV Q1HR EL Rx#:[id number] Oral 1280 400 Output: Urine 300 Other: Voiding Method Toilet Toilet Urinal Urinal Diaper Diaper # Voids 2 2 # Bowel Movements 2 - Labs CBC & Chem 7: 05/09/17 02:41 05/09/17 08:12 Labs: Abnormal Lab Results - Last 24 Hours (Table) 05/08/17 05/08/17 05/08/17 Range/Units 16:51 20:23 22:45 Hgb (13.0-17.5) gm/dL MCV (80.0-100.0) fL MCH (25.0-35.0) pg RDW (11.5-15.5) % Neutrophils # (1.3-7.7) k/uL Lymphocytes # (1.0-4.8) k/uL Sodium (137-145) mmol/L Potassium 3.0 L* (3.5-5.1) mmol/L Chloride (98-107) mmol/L Carbon Dioxide (22-30) mmol/L BUN (9-20) mg/dL Glucose (74-99) mg/dL POC Glucose (mg/dL) 164 H 128 H (75-99) mg/dL AST (17-59) U/L ALT (21-72) U/L 05/09/17 05/09/17 05/09/17 Range/Units 02:41 02:41 05:50 Hgb 17.8 H (13.0-17.5) gm/dL MCV 110.5 H (80.0-100.0) fL MCH 37.5 H (25.0-35.0) pg RDW 15.8 H (11.5-15.5) % Neutrophils # 9.2 H (1.3-7.7) k/uL Lymphocytes # 0.6 L (1.0-4.8) k/uL Sodium 136 L (137-145) mmol/L Potassium (3.5-5.1) mmol/L Chloride 93 L (98-107) mmol/L Carbon Dioxide 31 H (22-30) mmol/L BUN 38 H (9-20) mg/dL Glucose 178 H (74-99) mg/dL POC Glucose (mg/dL) 151 H (75-99) mg/dL AST 87 H (17-59) U/L ALT 163 H (21-72) U/L Assessment and Plan Plan: Assessment End-stage COPD with acute exacerbation Acute on chronic hypoxic respiratory failure GI hemorrhage Acute blood loss anemia Leukocytosis related to prolonged prednisone use Hypertension Hyperlipidemia BPH Plan patient IV steroid dose has been escalated would be continued on breathing treatment and supportive care and supplemental oxygen patient appears to be short of breath likely related to end-stage lung and severe COPD as well as acute blood loss anemia prognosis overall is guarded O follow closelyPatient could be discharged to a rehab facility from a pulmonary standpoint in the near future. This patient has end-stage COPD and persistent shortness of breath is chronic. Medications have been reviewed and will be continued as ordered. Into new to monitor for any bleeding as well as hemoglobin. Continue with pulmonary hygiene, coughing and deep breathing exercises, and supportive care. Supplemental oxygen and/or BiPAP to maintain oxygen saturations of 92% or better. Continue nebulizer treatments. Initiate and encourage incentive spirometer. GI and DVT prophylaxis. Repeat labs in the morning. We will continue to monitor labs/results and adjust treatment as necessary. Further recommendations pending.
[2017-05-09 12:10] LABS: Glucose,Whole Blood 134 mg/dL (75-99)
[2017-05-09] MEDS: THIAMINE 100 MG TAB PO SCH (12:14)
--- NOTE | 2017-05-09 15:14 | P.PN ---
Subjective s/p fall and RT sided rib fractures Mr. Craig is a 61-year-old male with a known history of asthma/COPD EtOH abuse, chronic pain and liver disease came to the ER status post fall on 04/26/2017. Patient was intoxicated with all call and had a mechanical fall. Patient landed on the right side of his chest. Denied any headache or head injury or loss of consciousness. Patient has been increasing short of breath and pain with deep breathing. Patient came to the hospital. Patient has been having chronic cough with whitish to yellow sputum. No increasing in quantity of sputum or frequency. Patient had CT of the chest abdomen and pelvis was done in the year showed a small right pneumothorax, acute nondisplaced fractures right posterior seventh through ninth ribs. Patient also had right posterior 10th rib and 11th rib. An air space opacity in the dependent lung bases consistent with atelectasis and superimposed possible right basilar pulmonary contusion.. Currently patient is complaining of pain with coughing and deep breathing. No fever or chills. No nausea vomiting or abdominal Pain. On 04/30/17 - Pt became diaphoretic, pale, lethargic and his O2 sat dropped to 86% on 4 L of supplemental oxygen. ABGs were drawn showed - pH of 7.20 pCO2 of 71 and HCO3 26 and pO2 97% the patient was placed on BiPAP and transferred over to the intensive care unit . Apparently the pt was found chewing tobacco and also threw up once and eventually went into respiratory distress. A stat chest x-ray did show patchy airspace disease seen throughout both lungs. So he might have aspirated. on 05/01/17 Pt. is saturating well on NC, Pt. is agitated and is in DTs. no fever/chills Complete ROS could not be done as the pt is on BiPAP. As per nursing staff report , no other active issues. on 05/02/17 pt is lethargic 05/03/2017 Patient is doing a little bit better Stable on the current medication regimen Patient is only on 5 L supplement oxygen 05/04/17 on 4 l o2 more pleasant today however confused passed his swallow eval 05/05/17 required over 7 mg of ativan overnight confused however more pleasant 72/17 pt was lethargic this am, was noted to have pinpoint pupils with low rr. I directed to give narcan after a review pt was not taking methadone on review of MAPS improved by the time of my eval cxr was reviewed 05/08/2017 Patient is more awake today is able to answer questions appropriately However does does have certain odd conversations intermittently Patient states that he would like to go home States that he has a hard time wearing oxygen at this time. Denies having any complaints including cough fevers chills headaches blurry vision chest pain difficulty breathing nausea vomiting or diarrhea 05/09/17 on 5 l o2 doing well - Exam HEENT: Normocephalic. Neck is supple. Pupils reactive. Nostrils clear. Oral cavity is moist. Ears reveal no drainage. Neck reveals no JVD, carotid bruits, or thyromegaly. CHEST EXAMINATION: Trachea is central. Decreased air entry bilaterally CARDIAC: Normal S1, S2 with no gallops. No murmurs ABDOMEN: Soft. Bowel sounds normal. No organomegaly. No abdominal bruits. Extremities: reveal no edema. No clubbing or cyanosis Neurologically alert to self Skin: No rash or skin lesions. Musculoskeletal: No joint swelling or deformity. Normal range of motion. Assessment and Plan Plan: 1. Delirium Tremens, encephalopathy, both metabolic and toxic 1.Acute Hypoxic respiratory failure- due to Aspiration 1 Status post mechanical fall along with EtOH intoxication 2 Small right-sided pneumothorax 3 Right-sided posterior seventh through ninth rib fractures nondisplaced 4 acute on chronic hypoxic respiratory failure 5 COPD with mild exacerbation 6 history of moderately chronic persistent asthma with ALLERGY component 7 EtOH abuse 8 Elevated lactic acidosis due to volume depletion. 9 DVT prophylaxis 10 Mildly elevated liver enzymes 11 Macrocytosis 12. HTN, accelerated #13. Acute diastolic heart failure this is likely due to tachyphylaxis. Patient was undergoing withdrawals at that time. PLAN: We'll start the patient on Cardizem 30 mg by mouth 3 times a day Titrate down oxygen as tolerated Guardianship was obtained from the patient Placement likely in the next 24-48 hours Continue antibiotic therapy fall precautions Objective - Vital Signs Vital signs: Vital Signs Temp 97.9 F 05/09/17 08:00 Pulse 92 05/09/17 13:30 Resp 20 05/09/17 08:00 BP 120/83 05/09/17 08:00 Pulse Ox 98 05/09/17 08:00 Intake & Output 05/08/17 05/09/17 05/09/17 18:59 06:59 18:59 Intake Total 1490 623 800 Output Total 300 Balance 1190 623 800 Weight 88 kg 89 kg Intake: IV 210 623 0.9 at KVO 160 320 Furosemide 20mg/2mL 2 IV Solu-Medrol 40mg/1mL 1 Piperacillin-Tazobactam 3 50 100 .375 gm In Dextrose/Water 1 50ml.bag @ 12.5 mls/hr IVPB Q8HR [facility] Rx#: [id number] Potassium Chloride 10 meq 200 Lidocaine 2% Inj 10 mg In Sodium Chloride 0.9% 100 ml @ 100 mls/hr IV Q1HR [facility] Rx#:[id number] Oral 1280 800 Output: Urine 300 Other: Voiding Method Toilet Toilet Urinal Urinal Diaper Diaper # Voids 2 2 # Bowel Movements 2 - Labs CBC & Chem 7: 05/09/17 02:41 05/09/17 08:12 Labs: Abnormal Lab Results - Last 24 Hours (Table) 05/08/17 05/08/17 05/08/17 Range/Units 16:51 20:23 22:45 Hgb (13.0-17.5) gm/dL MCV (80.0-100.0) fL MCH (25.0-35.0) pg RDW (11.5-15.5) % Neutrophils # (1.3-7.7) k/uL Lymphocytes # (1.0-4.8) k/uL Sodium (137-145) mmol/L Potassium 3.0 L* (3.5-5.1) mmol/L Chloride (98-107) mmol/L Carbon Dioxide (22-30) mmol/L BUN (9-20) mg/dL Glucose (74-99) mg/dL POC Glucose (mg/dL) 164 H 128 H (75-99) mg/dL AST (17-59) U/L ALT (21-72) U/L 05/09/17 05/09/17 05/09/17 Range/Units 02:41 02:41 05:50 Hgb 17.8 H (13.0-17.5) gm/dL MCV 110.5 H (80.0-100.0) fL MCH 37.5 H (25.0-35.0) pg RDW 15.8 H (11.5-15.5) % Neutrophils # 9.2 H (1.3-7.7) k/uL Lymphocytes # 0.6 L (1.0-4.8) k/uL Sodium 136 L (137-145) mmol/L Potassium (3.5-5.1) mmol/L Chloride 93 L (98-107) mmol/L Carbon Dioxide 31 H (22-30) mmol/L BUN 38 H (9-20) mg/dL Glucose 178 H (74-99) mg/dL POC Glucose (mg/dL) 151 H (75-99) mg/dL AST 87 H (17-59) U/L ALT 163 H (21-72) U/L 05/09/17 Range/Units 11:48 Hgb (13.0-17.5) gm/dL MCV (80.0-100.0) fL MCH (25.0-35.0) pg RDW (11.5-15.5) % Neutrophils # (1.3-7.7) k/uL Lymphocytes # (1.0-4.8) k/uL Sodium (137-145) mmol/L Potassium (3.5-5.1) mmol/L Chloride (98-107) mmol/L Carbon Dioxide (22-30) mmol/L BUN (9-20) mg/dL Glucose (74-99) mg/dL POC Glucose (mg/dL) 134 H (75-99) mg/dL AST (17-59) U/L ALT (21-72) U/L
[2017-05-09 16:40] LABS: Glucose,Whole Blood 105 mg/dL (75-99)
[2017-05-09 20:41] LABS: Glucose,Whole Blood 108 mg/dL (75-99)
[2017-05-09] MEDS: ZIPRASIDONE 20 MG VIAL IM SCH (21:11)
[2017-05-10] MEDS: INSULIN LISPRO (humaLOG) 300 UNIT/3 ML VIAL SQ SCH ×4 (05:44→21:43)
[2017-05-10 05:45] LABS: Glucose,Whole Blood 132 mg/dL (75-99)
[2017-05-10] MEDS: ALBUTEROL NEBULIZED 2.5 MG/3 ML INHALATION SCH ×3 (07:01→20:40)
[2017-05-10] MEDS: TIOTROPIUM 18 MCG/PUFF INHALER INHALATION SCH (07:02)
[2017-05-10] MEDS: SYMBICORT 160-4.5 MCG INHALER INHALATION SCH ×2 (07:02→20:40)
[2017-05-10] MEDS: LORazepam 2 MG/ML SYRINGE IV PRN ×2 (07:31→09:44)
[2017-05-10] MEDS: DILTIAZEM ORAL 30 MG TAB PO SCH ×2 (07:33→15:26)
[2017-05-10] MEDS: PIPERACILLIN-TAZOBACTAM 3.375 GM in DEXTROSE/WATER 1 50ML.BAG IVPB SCH (07:33)
[2017-05-10] MEDS: amLODIPine 2.5 MG TAB PO SCH ×2 (07:33→19:56)
[2017-05-10] MEDS: CYANOCOBALAMIN 1,000 MCG/ML 1 ML VIAL IM SCH (07:33)
[2017-05-10] MEDS: HEPARIN SODIUM,PORCINE 5,000 UNIT/ML 1 ML VIAL SQ SCH ×2 (07:34→20:07)
[2017-05-10] MEDS: methylPREDNISolone SOD SUCCI 40 MG/ML 1 ML VIAL IV SCH (07:34)
[2017-05-10] MEDS: FUROSEMIDE 10 MG/ML 2 ML VIAL IV SCH ×2 (07:34→19:57)
[2017-05-10] MEDS ORDERED: LORazepam 0.5 MG TAB PO PRN (09:46)
--- NOTE | 2017-05-10 09:54 | P.PN ---
Subjective Principal diagnosis: 05/05/17- This is a 73-year-old pleasant male being seen examined and evaluated today in the intensive care unit. This patient is well-known to us services. This patient has had multiple admissions due to COPD exacerbations, respiratory failure and recurrent pneumonia. He was recently discharged on 04/22/2017 for COPD exacerbation. He was visited by home health care nurses and they noted him to be weak and pale with severe shortness of breath on exertion. The patient chronically uses home oxygen 3 L via nasal cannula at all times. His home health care nurse suggested he come into the emergency room. While he was in the emergency room his workup included a chest x-ray that showed chronic emphysema changes without any acute pulmonary process. The patient did note to be short of breath and was placed on BiPAP with an FiO2 of 40%. His lab workup revealed a hemoglobin of 7.7 which is a decrease from 15.5 on April 26. Patient received 2 units of packed red blood cells in the emergency room and was found to be occult positive patient also was continuing his discharge medications of prednisone as well as antibiotics from previous admission. Upon examination the patient's resting up in bed on 4 L of supplemental oxygen via nasal cannula , he is noted to have severe shortness of breath with exertion or extensive conversation. Patient has had a congested cough however difficulty with bringing up secretions. Of note the patient states that he did have a dark black bowel movement 5 days ago, and he has not had one since. Currently the patient is hemodynamically stable, current hemoglobin is 8.3. Patient is tolerating his clear liquid diet. Patient is also being seen by GI and possibly will undergo a scope in the next 48 hours, once respiratory status improved. 05/06/17 this patient is seen and examined today on rounds. The patient is currently in the ICU. Apparently overnight the patient had some increase in abdominal pain and a hemoglobin that went down to 7.9. GI was updated and ordered a chest x-ray which showed no acute process. Patient did receive 1 unit of packed red blood cells and is now at a hemoglobin of 9.1. Patient did have another black-colored stool this morning. We have consulted with GI and determined to go ahead with the patient's EGD. Patient continues to be short of breath with exertion or extensive conversation, however has improved slightly compared to yesterday's.. Patient continues to complain of a mild cough however it is nonproductive at this time. 05/07/17- The patient has been downgraded from the ICU. He is currenlty being examined on the med/surg unit. Continues on 3LPM of supplemental oxygen. 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 long segment of Bang's esophagus. Moderate size hiatal hernia. Hgb today 8.1, patient will have one unit of PRBCs. Patient remains short of breath. Abdominal pain improved. Patient had a formed black stool this morning. Patient is being set up for discharge to a rehab facility, once stable. 05/08/17- patient is being seen and examined today on the medical surgical unit. Patient did receive 1 unit of packed red blood cells yesterday and his repeat CBC this morning shows a hemoglobin of 7.4. He has received a total of 4 infusions of packed red blood cells, this admission. Shortness of breath has remained persistent with minimal exertion and extensive conversation. As a baseline the patient has end-stage COPD. Patient did complain of some diarrhea overnight currently he is being worked up for possible C. diff awaiting those results. 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 This patient is well-known to our services. The patient came into the emergency room status post fall on 04/26/2017. Patient states he fell from his porch which was approximately 3-4 feet of a drop. He stated he was intoxicated with alcohol at the time. Patient stated that he landed on his right-sided chest. Patient denies and loss of consciousness or hitting his head. Patient initially did not have much pain but over the last 2 days the pain has increasingly gotten worse as well as he develop shortness of breath. The patient was taking naproxen at home without relief. Patient states that the pain is consistent moderate and with palpation it becomes more severe. Patient has developed increasing shortness of breath over the last few days as well as well as a productive cough with yellow sputum. She denies any hemoptysis. Patient is known to have history of COPD, patient states he does not use oxygen at home at this time however he has used it in the past.. Patient did undergo a CT of the chest abdomen and pelvis which revealed a small right pneumo thorax , acute nondisplaced fractures right posterior seventh through ninth ribs. Some old healing fractures right posterior 10th rib 11th ribs, airspace opacity in the dependent lung bases consistent with atelectasis, possible superimposed right basilar pulmonary contusion. Upon examination the patient's resting up in bed on 2 L of supplemental oxygen. He states he continues to have rib pain with coughing. He is unable to bring up secretions due to pain. Patient states his current medications are effective for pain relief. He denies any fevers, chills, or hemoptysis, nausea, vomiting or diarrhea. 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 Patient's SpO2 was 86% on 4 L of supplemental oxygen. The patient's CBG was 118 patient was difficult to arouse. An 18 was called and stat ABGs were drawn and came back critical with a pH of 7.20 pCO2 of 71 and HCO3 26 and pO2 97% the patient was ultimately transferred over to the intensive care unit and put on BiPAP. A stat chest x-ray did show patchy airspace disease seen throughout both lungs, left greater than the right. Of note the patient also was suctioned and chewing tobacco was obtained the patient also vomited up a moderate amount of emesis, mixed with food articles as well as chewing tobacco. Apparently overnight the patient was found to be using chewing tobacco and it was removed from the patient's room and he was educated on the policy stating he could not have chewing tobacco in the hospital. Upon examination the patient is currently on BiPAP and is lethargic, his oxygen saturations have improved with the BiPAP, he does open his eyes spontaneously. The patient does not have any emergency contacts or family members that we are aware of to update we will put on social work to obtain a legal guardian for the patient. 05/01/17- this morning the patient is much more awake and alert. Patient was on BiPAP throughout the night and this morning. BiPAP was removed approximately 8 AM and the patient was transitioned to 10 L high flow nasal cannula with oxygen saturations in the mid 90s. Chest x-ray from this morning was reviewed and shows a mildly increased right infiltrate. Patient is on methadone and Xanax at home and he is requesting we transition to have those put back on his current meds. Education has been provided in regards to these medications and his respiratory status. We will start with methadone and hold on the Xanax at this time. She will also undergo a swallow eval before advancing his diet. 05/02/17 patient seen and evaluated and examined during the rounds in ICU he remains he remains intermittently anxious and agitated OxyIR and respiratory acidosis patient has been resumed on BiPAP currently patient is on IPAP of 15 and EPAP of 5 with 50% oxygen conceive a protocol as well as Haldol as needed and methadone has been resumed and the patient appears to be going through DTs as well, patient is being started on the thiamine and folic acid MVI him a care plan discussed with the primary service and nursing staff at length laboratory data reviewed chest x-ray reviewed as well, critical care time spent 35 minutes 05/03/17, Patient seen and examined in the ICU care plan discussed with the primary service and ICU staff at length patient remains intermittently agitated has been on ciwa protocol overnight. Overnight he required 8 mg of Ativan, patient overall appears slightly calm but is still undergoing active DTs, patient remains on BiPAP 15/5 with 50% oxygen he has been off of BiPAP with high flow oxygen about 8-10 L every 2-3 hour half an hour or so eating some but appetite has been poor he has been noted to have generalized swelling and third spacing and mild anasarca, x-ray from yesterday and laboratory data from today has been reviewed 05/04/17-patient continues on CIWA protocol, however has required less Ativan today than previously. Patient overall appears slightly calm but still has intermittent agitation and is undergoing active DTs. Patient continued on BiPAP 15/5 with 50% of oxygen overnight. Early the patient is on 5 L of supplemental oxygen via nasal cannula. He is noted to have less swelling/third spacing today than previous. Chest x-ray has been reviewed and shows improving CHF. Patient also did receive one-time dose of Lasix yesterday, with good effects. She continues to be short of breath with exertion. Denies any cough or congestion today. 05/05/17- upon examination today the patient is sleepy, is pleasantly confused. Continues on 4 L of supplemental oxygen via nasal cannula. He did use the BiPAP overnight. Edema is improving. Patient's chest x-ray from today is stable. Continues with left lower lobe infiltrate. Patient does become short of breath with exertion. He is still undergoing active DTs however symptoms are slowly improving. He did require Ativan per CIWA protocol overnight. He continues on IV Solu-Medrol. Methadone as scheduled. Nebulizers as scheduled. 05/06/17 patient is being seen today and examined on rounds. Upon examination the patient is resting up in bed on BiPAP according to the nursing staff the patient needed the BiPAP this morning due to oxygen saturations in the high 80s. Currently his oxygen saturations are maintained with the BiPAP in the mid 90s. Chest x-ray from today is stable. Labs are reviewed. We will continue to try to wean down his oxygen demands as low as use of the BiPAP. 05/07/17 patient is being seen in evaluated and examined on rounds today. The patient was on BiPAP during the night and most of the morning. At this time he is currently on 5 L of nasal cannula and seems to be holding his oxygen saturations at this time. Patient still has intermittent confusion. Continues on CIWA protocol. He continues to have some shortness of breath with exertion and extensive conversation. The BiPAP is to be used every night and as necessary during the day hours. 05/08/17 patient is being reevaluated and seen today on rounds. Patient is currently on 5-6 L of supplemental oxygen. He did utilize BiPAP machine throughout the night. Patient underwent an echocardiogram this morning. Echo does show resting tachycardia and his ejection fraction between 60 and 65%. Of note last night the patient became agitated he got out of bed and pulled his IV out, as well as was incontinent of stool and urine. Patient was able to be redirected he was cleaned up a new IV was started Ativan was given the patient was put back on BiPAP vital signs remained stable and the sitter state at bedside. 05/09/17, patient seen and evaluated exam and he is slightly more awake he remains on supplemental oxygen patient of note that has been more calm and comfortable during the day however nighttime because anxious and agitated however he has been agreeable for a BiPAP machine which she's been using at nighttime, supplemental oxygen was gradually being titrated down now down to 5 L sats remained stable and low 90s Patient has been relatively more stable [place] has been using BiPAP machine oxygenation continued to slowly improve remains on supplemental oxygen and BiPAP at nighttime and when necessary during the day, his agitation and anxiety has been more stable Objective - Vital Signs Vital signs: Vital Signs Temp 97.8 F 05/10/17 08:00 Pulse 73 05/10/17 08:00 Resp 18 05/10/17 08:00 BP 105/62 05/10/17 08:00 Pulse Ox 96 05/10/17 08:00 Intake & Output 05/09/17 05/10/17 05/10/17 18:59 06:59 18:59 Intake Total 900 253 250 Output Total 425 300 Balance 475 -47 250 Weight 90 kg Intake: IV 100 153 10 0.9 at KVO 100 Furosemide 20mg/2mL 2 IV Solu-Medrol 40mg/1mL 1 Invasive Line 9 10 Piperacillin-Tazobactam 3 100 50 .375 gm In Dextrose/Water 1 50ml.bag @ 12.5 mls/hr IVPB Q8HR [facility] Rx#: [id number] Oral 800 100 240 Output: Urine 425 300 Other: Voiding Method Toilet Toilet Toilet Urinal Diaper # Voids 2 1 - Exam GENERAL EXAM: Tired, no apparent distress HEAD: Normocephalic. EYES: Normal reaction of pupils, equal size. NOSE: Clear with pink turbinates. THROAT: No erythema or exudates. NECK: No masses, no JVD. CHEST: No chest wall deformity. LUNGS: Patient noted to have coarse breath sounds with scattered rhonchi and faint end expiratory wheezes. Patient also noted to have some faint bibasilar crackles. Patient also known to have chest wall tenderness on the right side. CVS: S1 and S2 normal with no audible mumurs, regular rhythm. ABDOMEN: No hepatosplenomegaly, normal bowel sounds, no guarding or rigidity. EXTREMITIES: No edema noted, pedal pulses palpable. CENTRAL NERVOUS SYSTEM: No focal deficits, tone is normal in all 4 extremities. - Labs CBC & Chem 7: 05/09/17 02:41 05/09/17 08:12 Labs: Abnormal Lab Results - Last 24 Hours (Table) 05/09/17 05/09/17 05/09/17 Range/Units 11:48 16:37 20:39 POC Glucose (mg/dL) 134 H 105 H 108 H (75-99) mg/dL 05/10/17 Range/Units 05:44 POC Glucose (mg/dL) 132 H (75-99) mg/dL Assessment and Plan Plan: Assessment End-stage COPD with acute exacerbation Acute on chronic hypoxic respiratory failure GI hemorrhage Acute blood loss anemia Leukocytosis related to prolonged prednisone use Hypertension Hyperlipidemia BPH Plan patient IV steroid dose has been tapered would be continued on breathing treatment and supportive care and supplemental oxygen patient appears to be short of breath likely related to end-stage lung and severe COPD as well as acute blood loss anemia prognosis overall is guarded O follow closelyPatient could be discharged to a rehab facility from a pulmonary standpoint in the near future. This patient has end-stage COPD and persistent shortness of breath is chronic. Medications have been reviewed and will be continued as ordered. Into new to monitor for any bleeding as well as hemoglobin. Continue with pulmonary hygiene, coughing and deep breathing exercises, and supportive care. Supplemental oxygen and/or BiPAP to maintain oxygen saturations of 92% or better. Continue nebulizer treatments. Initiate and encourage incentive spirometer. GI and DVT prophylaxis. Repeat labs in the morning. We will continue to monitor labs/results and adjust treatment as necessary. Further recommendations pending. Time with Patient: Greater than 30
[2017-05-10 11:33] LABS: Glucose,Whole Blood 169 mg/dL (75-99)
--- NOTE | 2017-05-10 17:02 | P.PN ---
Subjective s/p fall and RT sided rib fractures Mr. Craig is a 61-year-old male with a known history of asthma/COPD EtOH abuse, chronic pain and liver disease came to the ER status post fall on 04/26/2017. Patient was intoxicated with all call and had a mechanical fall. Patient landed on the right side of his chest. Denied any headache or head injury or loss of consciousness. Patient has been increasing short of breath and pain with deep breathing. Patient came to the hospital. Patient has been having chronic cough with whitish to yellow sputum. No increasing in quantity of sputum or frequency. Patient had CT of the chest abdomen and pelvis was done in the year showed a small right pneumothorax, acute nondisplaced fractures right posterior seventh through ninth ribs. Patient also had right posterior 10th rib and 11th rib. An air space opacity in the dependent lung bases consistent with atelectasis and superimposed possible right basilar pulmonary contusion.. Currently patient is complaining of pain with coughing and deep breathing. No fever or chills. No nausea vomiting or abdominal Pain. On 04/30/17 - Pt became diaphoretic, pale, lethargic and his O2 sat dropped to 86% on 4 L of supplemental oxygen. ABGs were drawn showed - pH of 7.20 pCO2 of 71 and HCO3 26 and pO2 97% the patient was placed on BiPAP and transferred over to the intensive care unit . Apparently the pt was found chewing tobacco and also threw up once and eventually went into respiratory distress. A stat chest x-ray did show patchy airspace disease seen throughout both lungs. So he might have aspirated. on 05/01/17 Pt. is saturating well on NC, Pt. is agitated and is in DTs. no fever/chills Complete ROS could not be done as the pt is on BiPAP. As per nursing staff report , no other active issues. on 05/02/17 pt is lethargic 05/03/2017 Patient is doing a little bit better Stable on the current medication regimen Patient is only on 5 L supplement oxygen 05/04/17 on 4 l o2 more pleasant today however confused passed his swallow eval 05/05/17 required over 7 mg of ativan overnight confused however more pleasant 72/17 pt was lethargic this am, was noted to have pinpoint pupils with low rr. I directed to give narcan after a review pt was not taking methadone on review of MAPS improved by the time of my eval cxr was reviewed 05/08/2017 Patient is more awake today is able to answer questions appropriately However does does have certain odd conversations intermittently Patient states that he would like to go home States that he has a hard time wearing oxygen at this time. Denies having any complaints including cough fevers chills headaches blurry vision chest pain difficulty breathing nausea vomiting or diarrhea 05/09/17 on 5 l o2 doing well 05/10/17 doing well on 3 l o2 denies having adeola, productive cough,nausea, vomiting , diarrhea - Exam HEENT: Normocephalic. Neck is supple. Pupils reactive. Nostrils clear. Oral cavity is moist. Ears reveal no drainage. Neck reveals no JVD, carotid bruits, or thyromegaly. CHEST EXAMINATION: Trachea is central. Decreased air entry bilaterally CARDIAC: Normal S1, S2 with no gallops. No murmurs ABDOMEN: Soft. Bowel sounds normal. No organomegaly. No abdominal bruits. Extremities: reveal no edema. No clubbing or cyanosis Neurologically alert to self Skin: No rash or skin lesions. Musculoskeletal: No joint swelling or deformity. Normal range of motion. Assessment and Plan Plan: 1. Delirium Tremens, encephalopathy, both metabolic and toxic 1.Acute Hypoxic respiratory failure- due to Aspiration 1 Status post mechanical fall along with EtOH intoxication 2 Small right-sided pneumothorax 3 Right-sided posterior seventh through ninth rib fractures nondisplaced 4 acute on chronic hypoxic respiratory failure 5 COPD with mild exacerbation 6 history of moderately chronic persistent asthma with ALLERGY component 7 EtOH abuse 8 Elevated lactic acidosis due to volume depletion. 9 DVT prophylaxis 10 Mildly elevated liver enzymes 11 Macrocytosis 12. HTN, accelerated #13. Acute diastolic heart failure this is likely due to tachyphylaxis. Patient was undergoing withdrawals at that time. PLAN: increase cardizem to 60mg tid Titrate down oxygen as tolerated Guardianship was obtained from the patient Placement likely in the next 24-48 hours Continue antibiotic therapy,change to augmentin decrease steroids fall precautions Objective - Vital Signs Vital signs: Vital Signs Temp 97.6 F 05/10/17 15:00 Pulse 105 H 05/10/17 16:00 Resp 16 05/10/17 16:00 BP 135/66 05/10/17 15:00 Pulse Ox 96 05/10/17 15:00 Intake & Output 05/09/17 05/10/17 05/10/17 18:59 06:59 18:59 Intake Total 900 253 515 Output Total 425 300 500 Balance 475 -47 15 Weight 90 kg Intake: IV 100 153 75 0.9 at KVO 100 Furosemide 20mg/2mL 2 20 IV Solu-Medrol 40mg/1mL 1 Invasive Line 9 30 Piperacillin-Tazobactam 3 100 50 25 .375 gm In Dextrose/Water 1 50ml.bag @ 12.5 mls/hr IVPB Q8HR [facility] Rx#: [id number] Oral 800 100 440 Output: Urine 425 300 500 Other: Voiding Method Toilet Toilet Toilet Urinal Diaper # Voids 2 1 2 - Labs CBC & Chem 7: 05/09/17 02:41 05/09/17 08:12 Labs: Abnormal Lab Results - Last 24 Hours (Table) 05/09/17 05/10/17 05/10/17 Range/Units 20:39 05:44 11:27 POC Glucose (mg/dL) 108 H 132 H 169 H (75-99) mg/dL
[2017-05-10 17:29] LABS: Glucose,Whole Blood 103 mg/dL (75-99)
[2017-05-10] MEDS: DILTIAZEM ORAL 60 MG TAB PO SCH (19:56)
[2017-05-10] MEDS: AMOXIC-POT CLAV 875-125MG 1 EACH TAB PO SCH (19:57)
[2017-05-10 20:43] LABS: Glucose,Whole Blood 92 mg/dL (75-99)
[2017-05-10] MEDS: ZIPRASIDONE 20 MG VIAL IM SCH (21:32)
[2017-05-11] MEDS: SYMBICORT 160-4.5 MCG INHALER INHALATION SCH ×2 (07:24→20:25)
[2017-05-11] MEDS: ALBUTEROL NEBULIZED 2.5 MG/3 ML INHALATION SCH ×3 (07:24→20:25)
[2017-05-11] MEDS: TIOTROPIUM 18 MCG/PUFF INHALER INHALATION SCH (07:25)
[2017-05-11 07:28] LABS: Basophils % (A) 0 %; CHCM 33.3; Eosinophils # (A) 0.3 k/uL (0-0.7); Eosinophils % (A) 2 %; HCT 50.7 % (39.0-53.0); HDW 2.35; HGB 16.8 gm/dL (13.0-17.5); Luc # (Auto) 0.19; Luc % (Auto) 2; Lymphocytes # (A) 3.3 k/uL (1.0-4.8); Lymphocytes % (A) 28 %; MCHC 33.1 g/dL (31.0-37.0); MCV 111.8 fL (80.0-100.0); Macrocytosis Marked; Mean Platelet Volume 7.5; Monocytes # (A) 0.7 k/uL (0-1.0); Monocytes % (A) 6 %; Neutrophils # (A) 7.3 k/uL (1.3-7.7); Neutrophils % (A) 62 %; RBC 4.54 m/uL (4.30-5.90); WBC 11.7 k/uL (3.8-10.6); WBC (Perox) 11.64
[2017-05-11 07:35] LABS: ALT 149 U/L (21-72); AST 82 U/L (17-59); Alkaline Phosphatase 47 U/L (38-126); Anion Gap 7 mmol/L; Blood Urea Nitrogen 26 mg/dL (9-20); Calcium 9.1 mg/dL (8.4-10.2); Carbon Dioxide 31 mmol/L (22-30); Chloride 100 mmol/L (98-107); Glucose 81 mg/dL (74-99); Non-African American GFR(MDRD) >60 (>60 ml/min/1.73 sqM); Potassium 3.7 mmol/L (3.5-5.1); Sodium 138 mmol/L (137-145); Total Protein 5.8 g/dL (6.3-8.2)
[2017-05-11 07:43] LABS: Glucose,Whole Blood 89 mg/dL (75-99)
[2017-05-11] MEDS: INSULIN LISPRO (humaLOG) 300 UNIT/3 ML VIAL SQ SCH ×4 (08:41→22:43)
[2017-05-11] MEDS: methylPREDNISolone SOD SUCCI 40 MG/ML 1 ML VIAL IV SCH (08:43)
[2017-05-11] MEDS: FUROSEMIDE 10 MG/ML 2 ML VIAL IV SCH (08:43)
[2017-05-11] MEDS: AMOXIC-POT CLAV 875-125MG 1 EACH TAB PO SCH (08:44)
[2017-05-11] MEDS: CYANOCOBALAMIN 1,000 MCG/ML 1 ML VIAL IM SCH (08:44)
[2017-05-11] MEDS: DILTIAZEM ORAL 60 MG TAB PO SCH ×2 (08:44→16:26)
[2017-05-11] MEDS: amLODIPine 2.5 MG TAB PO SCH (08:44)
[2017-05-11] MEDS: HEPARIN SODIUM,PORCINE 5,000 UNIT/ML 1 ML VIAL SQ SCH (08:44)
--- NOTE | 2017-05-11 11:16 | P.PN ---
Subjective 04/29/17-This is a 61-year-old male who is being seen, evaluated and examined. This patient is well-known to our services. The patient came into the emergency room status post fall on 04/26/2017. Patient states he fell from his porch which was approximately 3-4 feet of a drop. He stated he was intoxicated with alcohol at the time. Patient stated that he landed on his right-sided chest. Patient denies and loss of consciousness or hitting his head. Patient initially did not have much pain but over the last 2 days the pain has increasingly gotten worse as well as he develop shortness of breath. The patient was taking naproxen at home without relief. Patient states that the pain is consistent moderate and with palpation it becomes more severe. Patient has developed increasing shortness of breath over the last few days as well as well as a productive cough with yellow sputum. She denies any hemoptysis. Patient is known to have history of COPD, patient states he does not use oxygen at home at this time however he has used it in the past.. Patient did undergo a CT of the chest abdomen and pelvis which revealed a small right pneumothorax, acute nondisplaced fractures right posterior seventh through ninth ribs. Some old healing fractures right posterior 10th rib 11th ribs, airspace opacity in the dependent lung bases consistent with atelectasis, possible superimposed right basilar pulmonary contusion. Upon examination the patient's resting up in bed on 2 L of supplemental oxygen. He states he continues to have rib pain with coughing. He is unable to bring up secretions due to pain. Patient states his current medications are effective for pain relief. He denies any fevers, chills, or hemoptysis, nausea, vomiting or diarrhea. 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 Patient's SpO2 was 86% on 4 L of supplemental oxygen. The patient's CBG was 118 patient was difficult to arouse. An 18 was called and stat ABGs were drawn and came back critical with a pH of 7.20 pCO2 of 71 and HCO3 26 and pO2 97% the patient was ultimately transferred over to the intensive care unit and put on BiPAP. A stat chest x-ray did show patchy airspace disease seen throughout both lungs, left greater than the right. Of note the patient also was suctioned and chewing tobacco was obtained the patient also vomited up a moderate amount of emesis, mixed with food articles as well as chewing tobacco. Apparently overnight the patient was found to be using chewing tobacco and it was removed from the patient's room and he was educated on the policy stating he could not have chewing tobacco in the hospital. Upon examination the patient is currently on BiPAP and is lethargic, his oxygen saturations have improved with the BiPAP, he does open his eyes spontaneously. The patient does not have any emergency contacts or family members that we are aware of to update we will put on social work to obtain a legal guardian for the patient. 05/01/17- this morning the patient is much more awake and alert. Patient was on BiPAP throughout the night and this morning. BiPAP was removed approximately 8 AM and the patient was transitioned to 10 L high flow nasal cannula with oxygen saturations in the mid 90s. Chest x-ray from this morning was reviewed and shows a mildly increased right infiltrate. Patient is on methadone and Xanax at home and he is requesting we transition to have those put back on his current meds. Education has been provided in regards to these medications and his respiratory status. We will start with methadone and hold on the Xanax at this time. She will also undergo a swallow eval before advancing his diet. 05/02/17 patient seen and evaluated and examined during the rounds in ICU he remains he remains intermittently anxious and agitated OxyIR and respiratory acidosis patient has been resumed on BiPAP currently patient is on IPAP of 15 and EPAP of 5 with 50% oxygen conceive a protocol as well as Haldol as needed and methadone has been resumed and the patient appears to be going through DTs as well, patient is being started on the thiamine and folic acid MVI him a care plan discussed with the primary service and nursing staff at length laboratory data reviewed chest x-ray reviewed as well, critical care time spent 35 minutes 05/03/17, Patient seen and examined in the ICU care plan discussed with the primary service and ICU staff at length patient remains intermittently agitated has been on ciwa protocol overnight. Overnight he required 8 mg of Ativan, patient overall appears slightly calm but is still undergoing active DTs, patient remains on BiPAP 15/5 with 50% oxygen he has been off of BiPAP with high flow oxygen about 8-10 L every 2-3 hour half an hour or so eating some but appetite has been poor he has been noted to have generalized swelling and third spacing and mild anasarca, x-ray from yesterday and laboratory data from today has been reviewed 05/04/17-patient continues on CIWA protocol, however has required less Ativan today than previously. Patient overall appears slightly calm but still has intermittent agitation and is undergoing active DTs. Patient continued on BiPAP 15/5 with 50% of oxygen overnight. Early the patient is on 5 L of supplemental oxygen via nasal cannula. He is noted to have less swelling/third spacing today than previous. Chest x-ray has been reviewed and shows improving CHF. Patient also did receive one-time dose of Lasix yesterday, with good effects. She continues to be short of breath with exertion. Denies any cough or congestion today. 05/05/17- upon examination today the patient is sleepy, is pleasantly confused. Continues on 4 L of supplemental oxygen via nasal cannula. He did use the BiPAP overnight. Edema is improving. Patient's chest x-ray from today is stable. Continues with left lower lobe infiltrate. Patient does become short of breath with exertion. He is still undergoing active DTs however symptoms are slowly improving. He did require Ativan per CIWA protocol overnight. He continues on IV Solu-Medrol. Methadone as scheduled. Nebulizers as scheduled. 05/06/17 patient is being seen today and examined on rounds. Upon examination the patient is resting up in bed on BiPAP according to the nursing staff the patient needed the BiPAP this morning due to oxygen saturations in the high 80s. Currently his oxygen saturations are maintained with the BiPAP in the mid 90s. Chest x-ray from today is stable. Labs are reviewed. We will continue to try to wean down his oxygen demands as low as use of the BiPAP. 05/07/17 patient is being seen in evaluated and examined on rounds today. The patient was on BiPAP during the night and most of the morning. At this time he is currently on 5 L of nasal cannula and seems to be holding his oxygen saturations at this time. Patient still has intermittent confusion. Continues on CIWA protocol. He continues to have some shortness of breath with exertion and extensive conversation. The BiPAP is to be used every night and as necessary during the day hours. 05/08/17 patient is being reevaluated and seen today on rounds. Patient is currently on 5-6 L of supplemental oxygen. He did utilize BiPAP machine throughout the night. Patient underwent an echocardiogram this morning. Echo does show resting tachycardia and his ejection fraction between 60 and 65%. Of note last night the patient became agitated he got out of bed and pulled his IV out, as well as was incontinent of stool and urine. Patient was able to be redirected he was cleaned up a new IV was started Ativan was given the patient was put back on BiPAP vital signs remained stable and the sitter state at bedside. 05/09/17, patient seen and evaluated exam and he is slightly more awake he remains on supplemental oxygen patient of note that has been more calm and comfortable during the day however nighttime because anxious and agitated however he has been agreeable for a BiPAP machine which she's been using at nighttime, supplemental oxygen was gradually being titrated down now down to 5 L sats remained stable and low 90s 05/10/17 Patient has been relatively more stable [place] has been using BiPAP machine oxygenation continued to slowly improve remains on supplemental oxygen and BiPAP at nighttime and when necessary during the day, his agitation and anxiety has been more stable 05/11/17 is being seen examined and evaluated today on rounds. The patient is sitting up in a chair next to the bed and history closed. Patient states he is feeling a lot better and is being discharged today. His breathing has been more stable currently he is on room air. The patient does have a CPAP machine at home however he has been noncompliant with its use. Education has been given to the patient in regards to compliance with his CPAP machine. Patient is agreeable to increase his compliance and will follow up with us in the outpatient setting as well. Today he states his shortness of breath cough and congestion is better. Objective - Vital Signs Vital signs: Vital Signs Temp 98 F 05/11/17 07:00 Pulse 92 05/11/17 07:40 Resp 22 05/11/17 07:00 BP 113/67 05/11/17 07:00 Pulse Ox 98 05/11/17 07:00 Intake & Output 05/10/17 05/11/17 05/11/17 18:59 06:59 18:59 Intake Total 515 490 Output Total 500 Balance 15 490 Weight 86 kg Intake: IV 75 10 Furosemide 20mg/2mL 20 Invasive Line 9 30 10 Piperacillin-Tazobactam 3 25 .375 gm In Dextrose/Water 1 50ml.bag @ 12.5 mls/hr IVPB Q8HR [facility] Rx#: [id number] Oral 440 480 Output: Urine 500 Other: Voiding Method Toilet Toilet Urinal # Voids 2 5 # Bowel Movements 1 - Exam GENERAL EXAM: alert, no apparent distress HEAD: Normocephalic. EYES: Normal reaction of pupils, equal size. NOSE: Clear with pink turbinates. THROAT: No erythema or exudates. NECK: No masses, no JVD. CHEST: No chest wall deformity. LUNGS: Patient noted to have coarse breath sounds with scattered rhonchi and faint end expiratory wheezes. Patient also known to have chest wall tenderness on the right side. CVS: S1 and S2 normal with no audible mumurs, regular rhythm. ABDOMEN: No hepatosplenomegaly, normal bowel sounds, no guarding or rigidity. EXTREMITIES: No edema noted, pedal pulses palpable. CENTRAL NERVOUS SYSTEM: No focal deficits, tone is normal in all 4 extremities. - Labs CBC & Chem 7: 05/11/17 06:54 05/11/17 06:54 Labs: Abnormal Lab Results - Last 24 Hours (Table) 05/10/17 05/10/17 05/11/17 Range/Units 11:27 17:20 06:54 WBC 11.7 H (3.8-10.6) k/uL MCV 111.8 H (80.0-100.0) fL MCH 37.0 H (25.0-35.0) pg RDW 16.0 H (11.5-15.5) % Carbon Dioxide (22-30) mmol/L BUN (9-20) mg/dL POC Glucose (mg/dL) 169 H 103 H (75-99) mg/dL AST (17-59) U/L ALT (21-72) U/L Total Protein (6.3-8.2) g/dL Albumin (3.5-5.0) g/dL 05/11/17 Range/Units 06:54 WBC (3.8-10.6) k/uL MCV (80.0-100.0) fL MCH (25.0-35.0) pg RDW (11.5-15.5) % Carbon Dioxide 31 H (22-30) mmol/L BUN 26 H (9-20) mg/dL POC Glucose (mg/dL) (75-99) mg/dL AST 82 H (17-59) U/L ALT 149 H (21-72) U/L Total Protein 5.8 L (6.3-8.2) g/dL Albumin 3.1 L (3.5-5.0) g/dL Assessment and Plan Plan: Assessment Left lower lobe aspiration pneumonia likely related to chewing tobacco Increased lethargy Status post fall Small right sided pneumothorax Multiple right-sided rib fractures Acute on chronic hypoxic hypercapnic respiratory failure COPD Chronic persistent moderate asthma with a component of ALLERGIC asthma Nicotine dependence Plan Patient can be discharged in the near future from a pulmonary standpoint. Patient will follow-up in the outpatient setting. Medications have been reviewed and will be continued as ordered. We will continue to monitor the pneumothorax which seems to be improved. newly developed left lower lobe aspiration pneumonia is stable. Initiate and encourage incentive spirometer. Continue with pulmonary hygiene, coughing and deep breathing exercises, and supportive care. Supplemental oxygen to maintain oxygen saturations of 90% or better. BiPAP as needed and at bedtime. Continue nebulizer treatments. GI and DVT prophylaxis. We will continue to monitor labs/results and adjust treatment as necessary. Further recommendations pending. I performed an examination of the patient and discussed their management with the nurse practitioner. I have reviewed the nurse practitioner's note and agree with the documented findings and plan of care.
--- NOTE | 2017-05-11 11:41 | P.DS ---
Providers Date of admission: 04/29/17 04:37 Attending physician: Monika Lovelace Consults: 04/29/17 11:39 Consult Physician Urgent Consulting Provider: Durga Garza Reason/Comments: pneumothorax Do you want consulting provider notified?: Yes 05/05/17 08:51 Consult Physician Routine Consulting Provider: Stacey Martinez Consult Reason/Comments: was previously admitting doctor/pneumothorax/fall Do you want consulting provider notified?: Already Contacted Primary care physician: Durga Garza Hospital Course: s/p fall and RT sided rib fractures Mr. Craig is a 61-year-old male with a known history of asthma/COPD EtOH abuse, chronic pain and liver disease came to the ER status post fall on 04/26/2017. Patient was intoxicated with all call and had a mechanical fall. Patient landed on the right side of his chest. Denied any headache or head injury or loss of consciousness. Patient has been increasing short of breath and pain with deep breathing. Patient came to the hospital. Patient has been having chronic cough with whitish to yellow sputum. No increasing in quantity of sputum or frequency. Patient had CT of the chest abdomen and pelvis was done in the year showed a small right pneumothorax, acute nondisplaced fractures right posterior seventh through ninth ribs. Patient also had right posterior 10th rib and 11th rib. An air space opacity in the dependent lung bases consistent with atelectasis and superimposed possible right basilar pulmonary contusion.. Currently patient is complaining of pain with coughing and deep breathing. No fever or chills. No nausea vomiting or abdominal Pain. On 04/30/17 - Pt became diaphoretic, pale, lethargic and his O2 sat dropped to 86% on 4 L of supplemental oxygen. ABGs were drawn showed - pH of 7.20 pCO2 of 71 and HCO3 26 and pO2 97% the patient was placed on BiPAP and transferred over to the intensive care unit . Apparently the pt was found chewing tobacco and also threw up once and eventually went into respiratory distress. A stat chest x-ray did show patchy airspace disease seen throughout both lungs. So he might have aspirated. on 05/01/17 Pt. is saturating well on NC, Pt. is agitated and is in DTs. no fever/chills Complete ROS could not be done as the pt is on BiPAP. As per nursing staff report , no other active issues. on 05/02/17 pt is lethargic 05/03/2017 Patient is doing a little bit better Stable on the current medication regimen Patient is only on 5 L supplement oxygen 05/04/17 on 4 l o2 more pleasant today however confused passed his swallow eval 05/05/17 required over 7 mg of ativan overnight confused however more pleasant 72/ pt was lethargic this am, was noted to have pinpoint pupils with low rr. I directed to give narcan after a review pt was not taking methadone on review of MAPS improved by the time of my eval cxr was reviewed 05/08/2017 Patient is more awake today is able to answer questions appropriately However does does have certain odd conversations intermittently Patient states that he would like to go home States that he has a hard time wearing oxygen at this time. Denies having any complaints including cough fevers chills headaches blurry vision chest pain difficulty breathing nausea vomiting or diarrhea 05/09/17 on 5 l o2 doing well 05/10/17 doing well on 3 l o2 denies having adeola, productive cough,nausea, vomiting , diarrhea 05/11/2017 Patient appears to be off oxygen at this time. Denies having any additional complaints - Exam HEENT: Normocephalic. Neck is supple. Pupils reactive. Nostrils clear. Oral cavity is moist. Ears reveal no drainage. Neck reveals no JVD, carotid bruits, or thyromegaly. CHEST EXAMINATION: Trachea is central. Decreased air entry bilaterally CARDIAC: Normal S1, S2 with no gallops. No murmurs ABDOMEN: Soft. Bowel sounds normal. No organomegaly. No abdominal bruits. Extremities: reveal no edema. No clubbing or cyanosis Neurologically alert to self Skin: No rash or skin lesions. Musculoskeletal: No joint swelling or deformity. Normal range of motion. Assessment and Plan Plan: 1. Delirium Tremens, encephalopathy, both metabolic and toxic 1.Acute Hypoxic respiratory failure- due to Aspiration 1 Status post mechanical fall along with EtOH intoxication 2 Small right-sided pneumothorax 3 Right-sided posterior seventh through ninth rib fractures nondisplaced 4 acute on chronic hypoxic respiratory failure 5 COPD with mild exacerbation 6 history of moderately chronic persistent asthma with ALLERGY component 7 EtOH abuse 8 Elevated lactic acidosis due to volume depletion. 9 DVT prophylaxis 10 Mildly elevated liver enzymes 11 Macrocytosis 12. HTN, accelerated #13. Acute diastolic heart failure this is likely due to tachyphylaxis. Patient was undergoing withdrawals at that time. Continue Augmentin for 4 more days Cardizem 180 mg CD We'll start patient on hydrochlorothiazide 25 mg hold off on Lasix at this time patient appears to be euvolemic Blood pressures are stable Patient has a public guardian will be discharged to assisted Patient Condition at Discharge: Fair Plan - Discharge Summary New Discharge Prescriptions: New Amoxic-Pot Clav 875-125Mg [Augmentin 875-125] 1 each PO Q12HR #8 tab Budesonide-Formot 160-4.5 Mcg [Symbicort 160-4.5 Mcg Inhaler] 2 puff INHALATION RT-BID #0 puff Diltiazem Cd [Cardizem Cd] 180 mg PO DAILY #24 cap.er.24h Hydrochlorothiazide [Hydrodiuril] 25 mg PO DAILY #30 tab Ziprasidone [Geodon] 20 mg PO HS #20 capsule Continue Tiotropium [place] [Spiriva] 1 cap INHALATION RT-DAILY Albuterol Inhaler [Ventolin Hfa Inhaler] 1 - 2 puff INHALATION RT-Q6H PRN PRN Reason: Shortness Of Breath Ipratropium-Albuterol Nebulize [Duoneb 0.5 mg-3 mg/3 ml Soln] 3 ml INHALATION RT-BID ALPRAZolam [Xanax] 1 mg PO BID #10 Discontinued Methadone [Dolophine] 30 mg PO Q12HR Discharge Medication List Tiotropium [place] [Spiriva] 1 cap INHALATION RT-DAILY 05/13/16 [History] Albuterol Inhaler [Ventolin Hfa Inhaler] 1 - 2 puff INHALATION RT-Q6H PRN [History] Ipratropium-Albuterol Nebulize [Duoneb 0.5 mg-3 mg/3 ml Soln] 3 ml INHALATION RT -BID 04/29/17 [History] ALPRAZolam [Xanax] 1 mg PO BID #10 05/11/17 [Rx] Amoxic-Pot Clav 875-125Mg [Augmentin 875-125] 1 each PO Q12HR #8 tab 05/11/17 [ Rx] Budesonide-Formot 160-4.5 Mcg [Symbicort 160-4.5 Mcg Inhaler] 2 puff INHALATION RT-BID #0 puff 05/11/17 [Rx] Diltiazem Cd [Cardizem Cd] 180 mg PO DAILY #24 cap.er.24h 05/11/17 [Rx] Hydrochlorothiazide [Hydrodiuril] 25 mg PO DAILY #30 tab 05/11/17 [Rx] Ziprasidone [Geodon] 20 mg PO HS #20 capsule 05/11/17 [Rx] Follow up Appointment(s)/Referral(s): Durga aGrza MD [Primary Care Provider] - 3 Days Activity/Diet/Wound Care/Special Instructions: [facility] Discharge Disposition: TRANSFER TO [facility]
[2017-05-11 12:04] LABS: Glucose,Whole Blood 89 mg/dL (75-99)
[2017-05-11 17:45] LABS: Glucose,Whole Blood 122 mg/dL (75-99)
[2017-05-11 20:58] LABS: Glucose,Whole Blood 97 mg/dL (75-99)
[2017-05-12] MEDS: FUROSEMIDE 10 MG/ML 2 ML VIAL IV SCH ×3 (03:40→22:33)
[2017-05-12] MEDS: amLODIPine 2.5 MG TAB PO SCH ×3 (03:40→22:26)
[2017-05-12] MEDS: AMOXIC-POT CLAV 875-125MG 1 EACH TAB PO SCH ×3 (03:40→22:26)
[2017-05-12] MEDS: DILTIAZEM ORAL 60 MG TAB PO SCH ×4 (03:41→22:26)
[2017-05-12] MEDS: ZIPRASIDONE 20 MG VIAL IM SCH ×2 (03:41→22:24)
[2017-05-12] MEDS: HEPARIN SODIUM,PORCINE 5,000 UNIT/ML 1 ML VIAL SQ SCH ×3 (03:41→22:25)
[2017-05-12 07:32] LABS: Glucose,Whole Blood 95 mg/dL (75-99)
[2017-05-12] MEDS: INSULIN LISPRO (humaLOG) 300 UNIT/3 ML VIAL SQ SCH ×4 (07:52→20:14)
[2017-05-12] MEDS: ALBUTEROL NEBULIZED 2.5 MG/3 ML INHALATION SCH ×3 (08:27→19:36)
[2017-05-12] MEDS: SYMBICORT 160-4.5 MCG INHALER INHALATION SCH ×2 (08:27→19:36)
[2017-05-12] MEDS: TIOTROPIUM 18 MCG/PUFF INHALER INHALATION SCH (08:44)
--- NOTE | 2017-05-12 11:03 | P.PN ---
Subjective 04/29/17-This is a 61-year-old male who is being seen, evaluated and examined. This patient is well-known to our services. The patient came into the emergency room status post fall on 04/26/2017. Patient states he fell from his porch which was approximately 3-4 feet of a drop. He stated he was intoxicated with alcohol at the time. Patient stated that he landed on his right-sided chest. Patient denies and loss of consciousness or hitting his head. Patient initially did not have much pain but over the last 2 days the pain has increasingly gotten worse as well as he develop shortness of breath. The patient was taking naproxen at home without relief. Patient states that the pain is consistent moderate and with palpation it becomes more severe. Patient has developed increasing shortness of breath over the last few days as well as well as a productive cough with yellow sputum. She denies any hemoptysis. Patient is known to have history of COPD, patient states he does not use oxygen at home at this time however he has used it in the past.. Patient did undergo a CT of the chest abdomen and pelvis which revealed a small right pneumothorax, acute nondisplaced fractures right posterior seventh through ninth ribs. Some old healing fractures right posterior 10th rib 11th ribs, airspace opacity in the dependent lung bases consistent with atelectasis, possible superimposed right basilar pulmonary contusion. Upon examination the patient's resting up in bed on 2 L of supplemental oxygen. He states he continues to have rib pain with coughing. He is unable to bring up secretions due to pain. Patient states his current medications are effective for pain relief. He denies any fevers, chills, or hemoptysis, nausea, vomiting or diarrhea. 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 Patient's SpO2 was 86% on 4 L of supplemental oxygen. The patient's CBG was 118 patient was difficult to arouse. An 18 was called and stat ABGs were drawn and came back critical with a pH of 7.20 pCO2 of 71 and HCO3 26 and pO2 97% the patient was ultimately transferred over to the intensive care unit and put on BiPAP. A stat chest x-ray did show patchy airspace disease seen throughout both lungs, left greater than the right. Of note the patient also was suctioned and chewing tobacco was obtained the patient also vomited up a moderate amount of emesis, mixed with food articles as well as chewing tobacco. Apparently overnight the patient was found to be using chewing tobacco and it was removed from the patient's room and he was educated on the policy stating he could not have chewing tobacco in the hospital. Upon examination the patient is currently on BiPAP and is lethargic, his oxygen saturations have improved with the BiPAP, he does open his eyes spontaneously. The patient does not have any emergency contacts or family members that we are aware of to update we will put on social work to obtain a legal guardian for the patient. 05/01/17- this morning the patient is much more awake and alert. Patient was on BiPAP throughout the night and this morning. BiPAP was removed approximately 8 AM and the patient was transitioned to 10 L high flow nasal cannula with oxygen saturations in the mid 90s. Chest x-ray from this morning was reviewed and shows a mildly increased right infiltrate. Patient is on methadone and Xanax at home and he is requesting we transition to have those put back on his current meds. Education has been provided in regards to these medications and his respiratory status. We will start with methadone and hold on the Xanax at this time. She will also undergo a swallow eval before advancing his diet. 05/02/17 patient seen and evaluated and examined during the rounds in ICU he remains he remains intermittently anxious and agitated OxyIR and respiratory acidosis patient has been resumed on BiPAP currently patient is on IPAP of 15 and EPAP of 5 with 50% oxygen conceive a protocol as well as Haldol as needed and methadone has been resumed and the patient appears to be going through DTs as well, patient is being started on the thiamine and folic acid MVI him a care plan discussed with the primary service and nursing staff at length laboratory data reviewed chest x-ray reviewed as well, critical care time spent 35 minutes 05/03/17, Patient seen and examined in the ICU care plan discussed with the primary service and ICU staff at length patient remains intermittently agitated has been on ciwa protocol overnight. Overnight he required 8 mg of Ativan, patient overall appears slightly calm but is still undergoing active DTs, patient remains on BiPAP 15/5 with 50% oxygen he has been off of BiPAP with high flow oxygen about 8-10 L every 2-3 hour half an hour or so eating some but appetite has been poor he has been noted to have generalized swelling and third spacing and mild anasarca, x-ray from yesterday and laboratory data from today has been reviewed 05/04/17-patient continues on CIWA protocol, however has required less Ativan today than previously. Patient overall appears slightly calm but still has intermittent agitation and is undergoing active DTs. Patient continued on BiPAP 15/5 with 50% of oxygen overnight. Early the patient is on 5 L of supplemental oxygen via nasal cannula. He is noted to have less swelling/third spacing today than previous. Chest x-ray has been reviewed and shows improving CHF. Patient also did receive one-time dose of Lasix yesterday, with good effects. She continues to be short of breath with exertion. Denies any cough or congestion today. 05/05/17- upon examination today the patient is sleepy, is pleasantly confused. Continues on 4 L of supplemental oxygen via nasal cannula. He did use the BiPAP overnight. Edema is improving. Patient's chest x-ray from today is stable. Continues with left lower lobe infiltrate. Patient does become short of breath with exertion. He is still undergoing active DTs however symptoms are slowly improving. He did require Ativan per CIWA protocol overnight. He continues on IV Solu-Medrol. Methadone as scheduled. Nebulizers as scheduled. 05/06/17 patient is being seen today and examined on rounds. Upon examination the patient is resting up in bed on BiPAP according to the nursing staff the patient needed the BiPAP this morning due to oxygen saturations in the high 80s. Currently his oxygen saturations are maintained with the BiPAP in the mid 90s. Chest x-ray from today is stable. Labs are reviewed. We will continue to try to wean down his oxygen demands as low as use of the BiPAP. 05/07/17 patient is being seen in evaluated and examined on rounds today. The patient was on BiPAP during the night and most of the morning. At this time he is currently on 5 L of nasal cannula and seems to be holding his oxygen saturations at this time. Patient still has intermittent confusion. Continues on CIWA protocol. He continues to have some shortness of breath with exertion and extensive conversation. The BiPAP is to be used every night and as necessary during the day hours. 05/08/17 patient is being reevaluated and seen today on rounds. Patient is currently on 5-6 L of supplemental oxygen. He did utilize BiPAP machine throughout the night. Patient underwent an echocardiogram this morning. Echo does show resting tachycardia and his ejection fraction between 60 and 65%. Of note last night the patient became agitated he got out of bed and pulled his IV out, as well as was incontinent of stool and urine. Patient was able to be redirected he was cleaned up a new IV was started Ativan was given the patient was put back on BiPAP vital signs remained stable and the sitter state at bedside. 05/09/17, patient seen and evaluated exam and he is slightly more awake he remains on supplemental oxygen patient of note that has been more calm and comfortable during the day however nighttime because anxious and agitated however he has been agreeable for a BiPAP machine which she's been using at nighttime, supplemental oxygen was gradually being titrated down now down to 5 L sats remained stable and low 90s 05/10/17 Patient has been relatively more stable [place] has been using BiPAP machine oxygenation continued to slowly improve remains on supplemental oxygen and BiPAP at nighttime and when necessary during the day, his agitation and anxiety has been more stable 05/11/17 is being seen examined and evaluated today on rounds. The patient is sitting up in a chair next to the bed and history closed. Patient states he is feeling a lot better and is being discharged today. His breathing has been more stable currently he is on room air. The patient does have a CPAP machine at home however he has been noncompliant with its use. Education has been given to the patient in regards to compliance with his CPAP machine. Patient is agreeable to increase his compliance and will follow up with us in the outpatient setting as well. Today he states his shortness of breath cough and congestion is better. 05/12/17- patient is being seen examined and evaluated today on rounds. Patient was set to be discharged yesterday but then his approval for rehab facility was denied. Patient currently is being prepped for discharge to home. Patient is anxious to get home to his pets. Upon examination the patient's resting up in bed on room air. Does have occasional shortness of breath with exertion however this has significantly improved this admission. Denies any cough or congestion. Objective - Vital Signs Vital signs: Vital Signs Temp 98.2 F 05/11/17 22:54 Pulse 95 05/12/17 08:00 Resp 20 05/12/17 08:00 BP 127/67 05/11/17 22:54 Pulse Ox 94 L 05/12/17 03:02 Intake & Output 05/11/17 05/12/17 05/12/17 18:59 06:59 18:59 Intake Total 240 240 Balance 240 240 Weight 87 kg Intake: Oral 240 240 Other: Voiding Method Toilet Toilet Urinal Urinal Diaper Diaper # Voids 3 1 - Exam GENERAL EXAM: alert, no apparent distress HEAD: Normocephalic. EYES: Normal reaction of pupils, equal size. NOSE: Clear with pink turbinates. THROAT: No erythema or exudates. NECK: No masses, no JVD. CHEST: No chest wall deformity. LUNGS: Patient noted to have coarse breath sounds with scattered rhonchi and faint end expiratory wheezes. Patient also known to have chest wall tenderness on the right side. CVS: S1 and S2 normal with no audible mumurs, regular rhythm. ABDOMEN: No hepatosplenomegaly, normal bowel sounds, no guarding or rigidity. EXTREMITIES: No edema noted, pedal pulses palpable. CENTRAL NERVOUS SYSTEM: No focal deficits, tone is normal in all 4 extremities. - Labs CBC & Chem 7: 05/11/17 06:54 05/11/17 06:54 Labs: Abnormal Lab Results - Last 24 Hours (Table) 05/11/17 Range/Units 17:43 POC Glucose (mg/dL) 122 H (75-99) mg/dL Assessment and Plan Plan: Assessment Left lower lobe aspiration pneumonia likely related to chewing tobacco Increased lethargy Status post fall Small right sided pneumothorax Multiple right-sided rib fractures Acute on chronic hypoxic hypercapnic respiratory failure COPD Chronic persistent moderate asthma with a component of ALLERGIC asthma Nicotine dependence Plan Patient can be discharged in the near future from a pulmonary standpoint. Patient will follow-up in the outpatient setting. Medications have been reviewed and will be continued as ordered. We will continue to monitor the pneumothorax which seems to be improved. newly developed left lower lobe aspiration pneumonia is stable. Initiate and encourage incentive spirometer. Continue with pulmonary hygiene, coughing and deep breathing exercises, and supportive care. Supplemental oxygen to maintain oxygen saturations of 90% or better. BiPAP as needed and at bedtime. Continue nebulizer treatments. GI and DVT prophylaxis. We will continue to monitor labs/results and adjust treatment as necessary. Further recommendations pending. I performed an examination of the patient and discussed their management with the nurse practitioner. I have reviewed the nurse practitioner's note and agree with the documented findings and plan of care.
[2017-05-12 11:04] LABS: Glucose,Whole Blood 118 mg/dL (75-99)
[2017-05-12] MEDS: CYANOCOBALAMIN 1,000 MCG/ML 1 ML VIAL IM SCH (11:24)
[2017-05-12] MEDS: methylPREDNISolone SOD SUCCI 40 MG/ML 1 ML VIAL IV SCH (12:54)
--- NOTE | 2017-05-12 14:38 | P.PN ---
Subjective s/p fall and RT sided rib fractures Mr. Craig is a 61-year-old male with a known history of asthma/COPD EtOH abuse, chronic pain and liver disease came to the ER status post fall on 04/26/2017. Patient was intoxicated with all call and had a mechanical fall. Patient landed on the right side of his chest. Denied any headache or head injury or loss of consciousness. Patient has been increasing short of breath and pain with deep breathing. Patient came to the hospital. Patient has been having chronic cough with whitish to yellow sputum. No increasing in quantity of sputum or frequency. Patient had CT of the chest abdomen and pelvis was done in the year showed a small right pneumothorax, acute nondisplaced fractures right posterior seventh through ninth ribs. Patient also had right posterior 10th rib and 11th rib. An air space opacity in the dependent lung bases consistent with atelectasis and superimposed possible right basilar pulmonary contusion.. Currently patient is complaining of pain with coughing and deep breathing. No fever or chills. No nausea vomiting or abdominal Pain. On 04/30/17 - Pt became diaphoretic, pale, lethargic and his O2 sat dropped to 86% on 4 L of supplemental oxygen. ABGs were drawn showed - pH of 7.20 pCO2 of 71 and HCO3 26 and pO2 97% the patient was placed on BiPAP and transferred over to the intensive care unit . Apparently the pt was found chewing tobacco and also threw up once and eventually went into respiratory distress. A stat chest x-ray did show patchy airspace disease seen throughout both lungs. So he might have aspirated. on 05/01/17 Pt. is saturating well on NC, Pt. is agitated and is in DTs. no fever/chills Complete ROS could not be done as the pt is on BiPAP. As per nursing staff report , no other active issues. on 05/02/17 pt is lethargic 05/03/2017 Patient is doing a little bit better Stable on the current medication regimen Patient is only on 5 L supplement oxygen 05/04/17 on 4 l o2 more pleasant today however confused passed his swallow eval 05/05/17 required over 7 mg of ativan overnight confused however more pleasant 72/17 pt was lethargic this am, was noted to have pinpoint pupils with low rr. I directed to give narcan after a review pt was not taking methadone on review of MAPS improved by the time of my eval cxr was reviewed 05/08/2017 Patient is more awake today is able to answer questions appropriately However does does have certain odd conversations intermittently Patient states that he would like to go home States that he has a hard time wearing oxygen at this time. Denies having any complaints including cough fevers chills headaches blurry vision chest pain difficulty breathing nausea vomiting or diarrhea 05/09/17 on 5 l o2 doing well 05/10/17 doing well on 3 l o2 denies having adeola, productive cough,nausea, vomiting , diarrhea 05/12/2017 Patient appears to be doing well Patient is more anxious about going home to see his doctor Denies having any headaches blurry vision nausea vomiting diarrhea - Exam HEENT: Normocephalic. Neck is supple. Pupils reactive. Nostrils clear. Oral cavity is moist. Ears reveal no drainage. Neck reveals no JVD, carotid bruits, or thyromegaly. CHEST EXAMINATION: Trachea is central. Decreased air entry bilaterally CARDIAC: Normal S1, S2 with no gallops. No murmurs ABDOMEN: Soft. Bowel sounds normal. No organomegaly. No abdominal bruits. Extremities: reveal no edema. No clubbing or cyanosis Neurologically alert to self Skin: No rash or skin lesions. Musculoskeletal: No joint swelling or deformity. Normal range of motion. Assessment and Plan Plan: 1. Delirium Tremens, encephalopathy, both metabolic and toxic 1.Acute Hypoxic respiratory failure- due to Aspiration 1 Status post mechanical fall along with EtOH intoxication 2 Small right-sided pneumothorax 3 Right-sided posterior seventh through ninth rib fractures nondisplaced 4 acute on chronic hypoxic respiratory failure 5 COPD with mild exacerbation 6 history of moderately chronic persistent asthma with ALLERGY component 7 EtOH abuse 8 Elevated lactic acidosis due to volume depletion. 9 DVT prophylaxis 10 Mildly elevated liver enzymes 11 Macrocytosis 12. HTN, accelerated #13. Acute diastolic heart failure this is likely due to tachyphylaxis. Patient was undergoing withdrawals at that time. PLAN: Can be discharged home Safety at home is being assessed We'll likely be discharged in the next 24 hours Objective - Vital Signs Vital signs: Vital Signs Temp 98.2 F 05/11/17 22:54 Pulse 95 05/12/17 08:00 Resp 20 05/12/17 08:00 BP 127/67 05/11/17 22:54 Pulse Ox 94 L 05/12/17 03:02 Intake & Output 05/11/17 05/12/17 05/12/17 18:59 06:59 18:59 Intake Total 240 240 Balance 240 240 Weight 87 kg Intake: Oral 240 240 Other: Voiding Method Toilet Toilet Urinal Urinal Diaper Diaper # Voids 3 1 - Labs CBC & Chem 7: 05/11/17 06:54 05/11/17 06:54 Labs: Abnormal Lab Results - Last 24 Hours (Table) 05/11/17 05/12/17 Range/Units 17:43 11:01 POC Glucose (mg/dL) 122 H 118 H (75-99) mg/dL
[2017-05-12 15:18] VITALS: RESP 16
[2017-05-12 17:35] LABS: Glucose,Whole Blood 101 mg/dL (75-99)
[2017-05-12 20:10] LABS: Glucose,Whole Blood 93 mg/dL (75-99)
[2017-05-13] MEDS: FUROSEMIDE 10 MG/ML 2 ML VIAL IV SCH (07:30)
[2017-05-13 07:31] LABS: Glucose,Whole Blood 101 mg/dL (75-99)
[2017-05-13] MEDS: TIOTROPIUM 18 MCG/PUFF INHALER INHALATION SCH (07:46)
[2017-05-13] MEDS: ALBUTEROL NEBULIZED 2.5 MG/3 ML INHALATION SCH ×2 (07:46→13:24)
[2017-05-13] MEDS: SYMBICORT 160-4.5 MCG INHALER INHALATION SCH (07:46)
[2017-05-13] MEDS: INSULIN LISPRO (humaLOG) 300 UNIT/3 ML VIAL SQ SCH ×2 (08:27→12:32)
[2017-05-13] MEDS: AMOXIC-POT CLAV 875-125MG 1 EACH TAB PO SCH (08:30)
[2017-05-13] MEDS: DILTIAZEM ORAL 60 MG TAB PO SCH (08:30)
[2017-05-13] MEDS: HEPARIN SODIUM,PORCINE 5,000 UNIT/ML 1 ML VIAL SQ SCH (08:30)
[2017-05-13] MEDS: CYANOCOBALAMIN 1,000 MCG/ML 1 ML VIAL IM SCH (08:31)
[2017-05-13] MEDS: methylPREDNISolone SOD SUCCI 40 MG/ML 1 ML VIAL IV SCH (08:33)
[2017-05-13] MEDS: amLODIPine 2.5 MG TAB PO SCH (09:03)
[2017-05-13 11:34] LABS: Glucose,Whole Blood 98 mg/dL (75-99)
--- NOTE | 2017-05-13 11:37 | P.PN ---
Subjective 04/29/17-This is a 61-year-old male who is being seen, evaluated and examined. This patient is well-known to our services. The patient came into the emergency room status post fall on 04/26/2017. Patient states he fell from his porch which was approximately 3-4 feet of a drop. He stated he was intoxicated with alcohol at the time. Patient stated that he landed on his right-sided chest. Patient denies and loss of consciousness or hitting his head. Patient initially did not have much pain but over the last 2 days the pain has increasingly gotten worse as well as he develop shortness of breath. The patient was taking naproxen at home without relief. Patient states that the pain is consistent moderate and with palpation it becomes more severe. Patient has developed increasing shortness of breath over the last few days as well as well as a productive cough with yellow sputum. She denies any hemoptysis. Patient is known to have history of COPD, patient states he does not use oxygen at home at this time however he has used it in the past.. Patient did undergo a CT of the chest abdomen and pelvis which revealed a small right pneumothorax, acute nondisplaced fractures right posterior seventh through ninth ribs. Some old healing fractures right posterior 10th rib 11th ribs, airspace opacity in the dependent lung bases consistent with atelectasis, possible superimposed right basilar pulmonary contusion. Upon examination the patient's resting up in bed on 2 L of supplemental oxygen. He states he continues to have rib pain with coughing. He is unable to bring up secretions due to pain. Patient states his current medications are effective for pain relief. He denies any fevers, chills, or hemoptysis, nausea, vomiting or diarrhea. 04/30/17- apparently early head start director the patient was found to be diaphoretic, pale and lethargic. Patient's SpO2 was 86% on 4 L of supplemental oxygen. The patient's CBG was 118 patient was difficult to arouse. An 18 was called and stat ABGs were drawn and came back critical with a pH of 7.20 pCO2 of 71 and HCO3 26 and pO2 97% the patient was ultimately transferred over to the intensive care unit and put on BiPAP. A stat chest x-ray did show patchy airspace disease seen throughout both lungs, left greater than the right. Of note the patient also was suctioned and chewing tobacco was obtained the patient also vomited up a moderate amount of emesis, mixed with food articles as well as chewing tobacco. Apparently overnight the patient was found to be using chewing tobacco and it was removed from the patient's room and he was educated on the policy stating he could not have chewing tobacco in the hospital. Upon examination the patient is currently on BiPAP and is lethargic, his oxygen saturations have improved with the BiPAP, he does open his eyes spontaneously. The patient does not have any emergency contacts or family members that we are aware of to update we will put on social work to obtain a legal guardian for the patient. 05/01/17- this morning the patient is much more awake and alert. Patient was on BiPAP throughout the night and this morning. BiPAP was removed approximately 8 AM and the patient was transitioned to 10 L high flow nasal cannula with oxygen saturations in the mid 90s. Chest x-ray from this morning was reviewed and shows a mildly increased right infiltrate. Patient is on methadone and Xanax at home and he is requesting we transition to have those put back on his current meds. Education has been provided in regards to these medications and his respiratory status. We will start with methadone and hold on the Xanax at this time. She will also undergo a swallow eval before advancing his diet. 05/02/17 patient seen and evaluated and examined during the rounds in ICU he remains he remains intermittently anxious and agitated OxyIR and respiratory acidosis patient has been resumed on BiPAP currently patient is on IPAP of 15 and EPAP of 5 with 50% oxygen conceive a protocol as well as Haldol as needed and methadone has been resumed and the patient appears to be going through DTs as well, patient is being started on the thiamine and folic acid MVI him a care plan discussed with the primary service and nursing staff at length laboratory data reviewed chest x-ray reviewed as well, critical care time spent 35 minutes 05/03/17, Patient seen and examined in the ICU care plan discussed with the primary service and ICU staff at length patient remains intermittently agitated has been on ciwa protocol overnight. Overnight he required 8 mg of Ativan, patient overall appears slightly calm but is still undergoing active DTs, patient remains on BiPAP 15/5 with 50% oxygen he has been off of BiPAP with high flow oxygen about 8-10 L every 2-3 hour half an hour or so eating some but appetite has been poor he has been noted to have generalized swelling and third spacing and mild anasarca, x-ray from yesterday and laboratory data from today has been reviewed 05/04/17-patient continues on CIWA protocol, however has required less Ativan today than previously. Patient overall appears slightly calm but still has intermittent agitation and is undergoing active DTs. Patient continued on BiPAP 15/5 with 50% of oxygen overnight. Early the patient is on 5 L of supplemental oxygen via nasal cannula. He is noted to have less swelling/third spacing today than previous. Chest x-ray has been reviewed and shows improving CHF. Patient also did receive one-time dose of Lasix yesterday, with good effects. She continues to be short of breath with exertion. Denies any cough or congestion today. 05/05/17- upon examination today the patient is sleepy, is pleasantly confused. Continues on 4 L of supplemental oxygen via nasal cannula. He did use the BiPAP overnight. Edema is improving. Patient's chest x-ray from today is stable. Continues with left lower lobe infiltrate. Patient does become short of breath with exertion. He is still undergoing active DTs however symptoms are slowly improving. He did require Ativan per CIWA protocol overnight. He continues on IV Solu-Medrol. Methadone as scheduled. Nebulizers as scheduled. 05/06/17 patient is being seen today and examined on rounds. Upon examination the patient is resting up in bed on BiPAP according to the nursing staff the patient needed the BiPAP this morning due to oxygen saturations in the high 80s. Currently his oxygen saturations are maintained with the BiPAP in the mid 90s. Chest x-ray from today is stable. Labs are reviewed. We will continue to try to wean down his oxygen demands as low as use of the BiPAP. 05/07/17 patient is being seen in evaluated and examined on rounds today. The patient was on BiPAP during the night and most of the morning. At this time he is currently on 5 L of nasal cannula and seems to be holding his oxygen saturations at this time. Patient still has intermittent confusion. Continues on CIWA protocol. He continues to have some shortness of breath with exertion and extensive conversation. The BiPAP is to be used every night and as necessary during the day hours. 05/08/17 patient is being reevaluated and seen today on rounds. Patient is currently on 5-6 L of supplemental oxygen. He did utilize BiPAP machine throughout the night. Patient underwent an echocardiogram this morning. Echo does show resting tachycardia and his ejection fraction between 60 and 65%. Of note last night the patient became agitated he got out of bed and pulled his IV out, as well as was incontinent of stool and urine. Patient was able to be redirected he was cleaned up a new IV was started Ativan was given the patient was put back on BiPAP vital signs remained stable and the sitter state at bedside. 05/09/17, patient seen and evaluated exam and he is slightly more awake he remains on supplemental oxygen patient of note that has been more calm and comfortable during the day however nighttime because anxious and agitated however he has been agreeable for a BiPAP machine which she's been using at nighttime, supplemental oxygen was gradually being titrated down now down to 5 L sats remained stable and low 90s 05/10/17 Patient has been relatively more stable [place] has been using BiPAP machine oxygenation continued to slowly improve remains on supplemental oxygen and BiPAP at nighttime and when necessary during the day, his agitation and anxiety has been more stable 05/11/17 is being seen examined and evaluated today on rounds. The patient is sitting up in a chair next to the bed and history closed. Patient states he is feeling a lot better and is being discharged today. His breathing has been more stable currently he is on room air. The patient does have a CPAP machine at home however he has been noncompliant with its use. Education has been given to the patient in regards to compliance with his CPAP machine. Patient is agreeable to increase his compliance and will follow up with us in the outpatient setting as well. Today he states his shortness of breath cough and congestion is better. 05/12/17- patient is being seen examined and evaluated today on rounds. Patient was set to be discharged yesterday but then his approval for rehab facility was denied. Patient currently is being prepped for discharge to home. Patient is anxious to get home to his pets. Upon examination the patient's resting up in bed on room air. Does have occasional shortness of breath with exertion however this has significantly improved this admission. Denies any cough or congestion. 05/13/17- patient being seen examined and evaluated today on rounds. Patient is anticipating discharge to home today. Home safety is currently being assessed. Upon examination patient's resting up in bed on room air. He states he feels significantly better in regards to breathing. Denies any cough or congestion. Patient will be following up with this in the outpatient setting. Objective - Vital Signs Vital signs: Vital Signs Temp 97.8 F 05/13/17 07:00 Pulse 82 05/13/17 07:49 Resp 16 05/13/17 07:00 BP 110/71 05/13/17 07:00 Pulse Ox 91 L 05/13/17 07:00 Intake & Output 05/12/17 05/13/17 05/13/17 18:59 06:59 18:59 Intake Total 240 1180 Output Total 500 Balance -260 1180 Weight 87 kg 87.2 kg Intake: Oral 240 1180 Output: Urine 500 Other: Voiding Method Toilet Toilet Urinal Urinal Diaper Diaper # Voids 2 2 - Exam GENERAL EXAM: alert, no apparent distress HEAD: Normocephalic. EYES: Normal reaction of pupils, equal size. NOSE: Clear with pink turbinates. THROAT: No erythema or exudates. NECK: No masses, no JVD. CHEST: No chest wall deformity. LUNGS: Patient noted to have coarse breath sounds with scattered rhonchi and faint end expiratory wheezes. Patient also known to have chest wall tenderness on the right side. Which has improved CVS: S1 and S2 normal with no audible mumurs, regular rhythm. ABDOMEN: No hepatosplenomegaly, normal bowel sounds, no guarding or rigidity. EXTREMITIES: No edema noted, pedal pulses palpable. CENTRAL NERVOUS SYSTEM: No focal deficits, tone is normal in all 4 extremities. - Labs CBC & Chem 7: 05/11/17 06:54 05/11/17 06:54 Labs: Abnormal Lab Results - Last 24 Hours (Table) 05/12/17 05/13/17 Range/Units 17:31 07:29 POC Glucose (mg/dL) 101 H 101 H (75-99) mg/dL Assessment and Plan Plan: Assessment Left lower lobe aspiration pneumonia likely related to chewing tobacco Increased lethargy Status post fall Small right sided pneumothorax Multiple right-sided rib fractures Acute on chronic hypoxic hypercapnic respiratory failure COPD Chronic persistent moderate asthma with a component of ALLERGIC asthma Nicotine dependence Plan Patient can be discharged in the near future from a pulmonary standpoint. Patient will follow-up in the outpatient setting. Medications have been reviewed and will be continued as ordered. We will continue to monitor the pneumothorax which seems to be improved. newly developed left lower lobe aspiration pneumonia is stable. Initiate and encourage incentive spirometer. Continue with pulmonary hygiene, coughing and deep breathing exercises, and supportive care. Supplemental oxygen to maintain oxygen saturations of 90% or better. BiPAP as needed and at bedtime. Continue nebulizer treatments. GI and DVT prophylaxis. We will continue to monitor labs/results and adjust treatment as necessary. Further recommendations pending. I performed an examination of the patient and discussed their management with the nurse practitioner. I have reviewed the nurse practitioner's note and agree with the documented findings and plan of care.
[2017-05-13 13:36] VITALS: BMI 27.6
[2017-05-13 14:58] VITALS: BP 137/85; PULSE 93; TEMP 97.9
--- NOTE | 2017-05-13 17:45 | P.DS ---
Providers Date of admission: 04/29/17 04:37 Attending physician: Monika Lovelace Consults: 04/29/17 11:39 Consult Physician Urgent Consulting Provider: Durga Garza Reason/Comments: pneumothorax Do you want consulting provider notified?: Yes 05/05/17 08:51 Consult Physician Routine Consulting Provider: Stacey Martinez Consult Reason/Comments: was previously admitting doctor/pneumothorax/fall Do you want consulting provider notified?: Already Contacted Primary care physician: Durga Garza Hospital Course: s/p fall and RT sided rib fractures Mr. Craig is a 61-year-old male with a known history of asthma/COPD EtOH abuse, chronic pain and liver disease came to the ER status post fall on 04/26/2017. Patient was intoxicated with all call and had a mechanical fall. Patient landed on the right side of his chest. Denied any headache or head injury or loss of consciousness. Patient has been increasing short of breath and pain with deep breathing. Patient came to the hospital. Patient has been having chronic cough with whitish to yellow sputum. No increasing in quantity of sputum or frequency. Patient had CT of the chest abdomen and pelvis was done in the year showed a small right pneumothorax, acute nondisplaced fractures right posterior seventh through ninth ribs. Patient also had right posterior 10th rib and 11th rib. An air space opacity in the dependent lung bases consistent with atelectasis and superimposed possible right basilar pulmonary contusion.. Currently patient is complaining of pain with coughing and deep breathing. No fever or chills. No nausea vomiting or abdominal Pain. On 04/30/17 - Pt became diaphoretic, pale, lethargic and his O2 sat dropped to 86% on 4 L of supplemental oxygen. ABGs were drawn showed - pH of 7.20 pCO2 of 71 and HCO3 26 and pO2 97% the patient was placed on BiPAP and transferred over to the intensive care unit . Apparently the pt was found chewing tobacco and also threw up once and eventually went into respiratory distress. A stat chest x-ray did show patchy airspace disease seen throughout both lungs. So he might have aspirated. on 05/01/17 Pt. is saturating well on NC, Pt. is agitated and is in DTs. no fever/chills Complete ROS could not be done as the pt is on BiPAP. As per nursing staff report , no other active issues. on 05/02/17 pt is lethargic 05/03/2017 Patient is doing a little bit better Stable on the current medication regimen Patient is only on 5 L supplement oxygen 05/04/17 on 4 l o2 more pleasant today however confused passed his swallow eval 05/05/17 required over 7 mg of ativan overnight confused however more pleasant / pt was lethargic this am, was noted to have pinpoint pupils with low rr. I directed to give narcan after a review pt was not taking methadone on review of MAPS improved by the time of my eval cxr was reviewed 05/08/2017 Patient is more awake today is able to answer questions appropriately However does does have certain odd conversations intermittently Patient states that he would like to go home States that he has a hard time wearing oxygen at this time. Denies having any complaints including cough fevers chills headaches blurry vision chest pain difficulty breathing nausea vomiting or diarrhea 05/09/17 on 5 l o2 doing well 05/10/17 doing well on 3 l o2 denies having adeola, productive cough,nausea, vomiting , diarrhea 05/12/2017 Patient appears to be doing well Patient is more anxious about going home to see his doctor Denies having any headaches blurry vision nausea vomiting diarrhea - Exam HEENT: Normocephalic. Neck is supple. Pupils reactive. Nostrils clear. Oral cavity is moist. Ears reveal no drainage. Neck reveals no JVD, carotid bruits, or thyromegaly. CHEST EXAMINATION: Trachea is central. Decreased air entry bilaterally CARDIAC: Normal S1, S2 with no gallops. No murmurs ABDOMEN: Soft. Bowel sounds normal. No organomegaly. No abdominal bruits. Extremities: reveal no edema. No clubbing or cyanosis Neurologically alert to self Skin: No rash or skin lesions. Musculoskeletal: No joint swelling or deformity. Normal range of motion. Assessment and Plan Plan: 1. Delirium Tremens, encephalopathy, both metabolic and toxic 1.Acute Hypoxic respiratory failure- due to Aspiration 1 Status post mechanical fall along with EtOH intoxication 2 Small right-sided pneumothorax 3 Right-sided posterior seventh through ninth rib fractures nondisplaced 4 acute on chronic hypoxic respiratory failure 5 COPD with mild exacerbation 6 history of moderately chronic persistent asthma with ALLERGY component 7 EtOH abuse 8 Elevated lactic acidosis due to volume depletion. 9 DVT prophylaxis 10 Mildly elevated liver enzymes 11 Macrocytosis 12. HTN, accelerated #13. Acute diastolic heart failure this is likely due to tachyphylaxis. Patient was undergoing withdrawals at that time. dc home case discussed with his guardian Patient Condition at Discharge: Fair Plan - Discharge Summary New Discharge Prescriptions: New Amoxic-Pot Clav 875-125Mg [Augmentin 875-125] 1 each PO Q12HR #8 tab Budesonide-Formot 160-4.5 Mcg [Symbicort 160-4.5 Mcg Inhaler] 2 puff INHALATION RT-BID #0 puff Diltiazem Cd [Cardizem Cd] 180 mg PO DAILY #24 cap.er.24h Hydrochlorothiazide [Hydrodiuril] 25 mg PO DAILY #30 tab Ziprasidone [Geodon] 20 mg PO HS #20 capsule Continue Tiotropium Raysal [Spiriva] 1 cap INHALATION RT-DAILY Albuterol Inhaler [Ventolin Hfa Inhaler] 1 - 2 puff INHALATION RT-Q6H PRN PRN Reason: Shortness Of Breath Ipratropium-Albuterol Nebulize [Duoneb 0.5 mg-3 mg/3 ml Soln] 3 ml INHALATION RT-BID ALPRAZolam [Xanax] 1 mg PO BID #10 Discontinued Methadone [Dolophine] 30 mg PO Q12HR Discharge Medication List Tiotropium Raysal [Spiriva] 1 cap INHALATION RT-DAILY 05/13/16 [History] Albuterol Inhaler [Ventolin Hfa Inhaler] 1 - 2 puff INHALATION RT-Q6H PRN [History] Ipratropium-Albuterol Nebulize [Duoneb 0.5 mg-3 mg/3 ml Soln] 3 ml INHALATION RT -BID 04/29/17 [History] ALPRAZolam [Xanax] 1 mg PO BID #10 05/11/17 [Rx] Amoxic-Pot Clav 875-125Mg [Augmentin 875-125] 1 each PO Q12HR #8 tab 05/11/17 [ Rx] Budesonide-Formot 160-4.5 Mcg [Symbicort 160-4.5 Mcg Inhaler] 2 puff INHALATION RT-BID #0 puff 05/11/17 [Rx] Diltiazem Cd [Cardizem Cd] 180 mg PO DAILY #24 cap.er.24h 05/11/17 [Rx] Hydrochlorothiazide [Hydrodiuril] 25 mg PO DAILY #30 tab 05/11/17 [Rx] Ziprasidone [Geodon] 20 mg PO HS #20 capsule 05/11/17 [Rx] Follow up Appointment(s)/Referral(s): [facility], [NON-STAFF] - Durga Garza MD [Primary Care Provider] - 3 Days Patient Instructions/Handouts: Traumatic Pneumothorax (DC), Rib Fracture (DC), Fall Prevention (DC) Activity/Diet/Wound Care/Special Instructions: Discharge home with [facility]. Discharge Disposition: HOME WITH HOME HEALTH SERVICES
== END 2017-05-13 15:45 | disposition home health service (06) | DRG 199 ==
LOC: EC 22:45 → 6SEL 04-29 04:37 → EEVIPCON 04-29 04:37 → 6ICU 04-30 06:12 → 6SEL 05-05 19:48 → 5MS5E 05-10 12:39
PROVIDERS: ADMIT Internal Medicine; ATTEND Internal Medicine
DX: S27.0XXA Traumatic pneumothorax, initial encounter (principal); J96.21 Acute and chronic respiratory failure with hypoxia; J69.0 Pneumonitis due to inhalation of food and vomit; G92 Toxic encephalopathy; I50.31 Acute diastolic (congestive) heart failure; F10.231 Alcohol dependence with withdrawal delirium; J96.22 Acute and chronic respiratory failure with hypercapnia; E87.2 Acidosis; S22.41XA Multiple fractures of ribs, right side, initial encounter for closed fracture; J44.1 Chronic obstructive pulmonary disease with (acute) exacerbation; J98.11 Atelectasis; I11.0 Hypertensive heart disease with heart failure; K74.60 Unspecified cirrhosis of liver; E86.9 Volume depletion, unspecified; F41.9 Anxiety disorder, unspecified; F11.99 Opioid use, unspecified with unspecified opioid-induced disorder; J45.40 Moderate persistent asthma, uncomplicated; F17.220 Nicotine dependence, chewing tobacco, uncomplicated; N39.498 Other specified urinary incontinence; D75.89 Other specified diseases of blood and blood-forming organs; K22.70 Barrett's esophagus without dysplasia; N40.1 Benign prostatic hyperplasia with lower urinary tract symptoms; G89.29 Other chronic pain; K76.9 Liver disease, unspecified; E78.5 Hyperlipidemia, unspecified; K44.9 Diaphragmatic hernia without obstruction or gangrene; Y90.1 Blood alcohol level of 20-39 mg/100 ml; Z79.899 Other long term (current) drug therapy; Z79.891 Long term (current) use of opiate analgesic; Z99.81 Dependence on supplemental oxygen; Z91.19 Patient's noncompliance with other medical treatment and regimen; Z87.01 Personal history of pneumonia (recurrent); W17.89XA Other fall from one level to another, initial encounter; Y92.008 Other place in unspecified non-institutional (private) residence as the place of occurrence of the external cause
CPT/HCPCS: 36415; 36600; 70470; 71010; 71020; 71260; 74177; 80048; 80053; 80320; 81003; 82805; 83036; 83605; 83735; 83880; 84100; 84132; 85025; 85610; 85730; 87040; 93005; 93306; 94640; 94660; 94760; 96360; 96361; 99285

== ENCOUNTER 2017-05-21 21:20 | Emergency (ER) | payer OTHER ==
[2017-05-21 22:34] LABS: Basophils # (A) 0.1 k/uL (0-0.2); Basophils % (A) 1 %; CH 36.9; CHCM 33.4; Eosinophils # (A) 0.5 k/uL (0-0.7); Eosinophils % (A) 7 %; HCT 44.1 % (39.0-53.0); HDW 2.51; HGB 15.3 gm/dL (13.0-17.5); Luc # (Auto) 0.28; Luc % (Auto) 4; Lymphocytes # (A) 1.9 k/uL (1.0-4.8); Lymphocytes % (A) 24 %; MCH 38.3 pg (25.0-35.0); MCHC 34.6 g/dL (31.0-37.0); MCV 110.9 fL (80.0-100.0); Macrocytosis Marked; Mean Platelet Volume 7.7; Monocytes # (A) 0.3 k/uL (0-1.0); Monocytes % (A) 4 %; Neutrophils # (A) 4.9 k/uL (1.3-7.7); Neutrophils % (A) 62 %; RBC 3.98 m/uL (4.30-5.90); RDW 15.8 % (11.5-15.5); WBC 7.9 k/uL (3.8-10.6); WBC (Perox) 8.02
[2017-05-21 22:48] LABS: Prothrombin Time 9.9 sec (9.0-12.0)
[2017-05-21 22:49] LABS: ALT 278 U/L (21-72); AST 189 U/L (17-59); Alkaline Phosphatase 132 U/L (38-126); Anion Gap 10 mmol/L; Blood Urea Nitrogen 11 mg/dL (9-20); Calcium 8.8 mg/dL (8.4-10.2); Carbon Dioxide 27 mmol/L (22-30); Chloride 106 mmol/L (98-107); Glucose 93 mg/dL (74-99); Non-African American GFR(MDRD) >60 (>60 ml/min/1.73 sqM); Potassium 4.1 mmol/L (3.5-5.1); Sodium 143 mmol/L (137-145); Total Bilirubin 0.8 mg/dL (0.2-1.3); Total Protein 5.9 g/dL (6.3-8.2)
[2017-05-21 22:57] LABS: Partial Thromboplastin Time 21.8 sec (22.0-30.0)
--- NOTE | 2017-05-21 22:57 | ED ---
General Adult HPI - General Chief complaint: Shortness of Breath Stated complaint: WEAKNESS Time Seen by Provider: 05/21/17 21:22 Source: patient, EMS Mode of arrival: EMS Limitations: no limitations - History of Present Illness Initial comments: This patient is a 61-year-old man who presents to the hospital for evaluation. The patient states that he is here because his guardian wanted him to be checked. The patient states that he is been feeling okay. His guardian came to check him because he had a physical therapy appointment scheduled for his home today, but when the therapist arrived was noted that he was hypertensive and that he was tachycardic as well. The patient states he was feeling fine and not having any symptoms. He states he would not have come in if his guardian hadn't forced him to come for evaluation. The patient does have recent history of rib fractures and of pneumothorax approximately 2 weeks ago, but states that he continues to feel better since that. He is denying chest pain, fever or chills, a new cough or any new sputum. He is not having leg pain or swelling. -: hour(s) - Related Data Home Medications Medication Instructions Recorded Confirmed Tiotropium [place] [Spiriva] 1 cap INHALATION RT-DAILY 05/13/16 05/21/17 Albuterol Inhaler [Ventolin Hfa 1 - 2 puff INHALATION RT-Q6H PRN 04/29/17 Inhaler] Ipratropium-Albuterol Nebulize 3 ml INHALATION RT-BID 04/29/17 05/21/17 [Duoneb 0.5 mg-3 mg/3 ml Soln] Amoxic-Pot Clav 875-125Mg 1 tab PO Q12H 05/21/17 05/21/17 [Augmentin 875-125] Methadone [Dolophine] 30 mg PO BID 05/21/17 05/21/17 Ziprasidone [Geodon] 20 mg PO DAILY 05/21/17 05/21/17 Previous Rx's Medication Instructions Recorded ALPRAZolam [Xanax] 1 mg PO BID #10 05/11/17 Budesonide-Formot 160-4.5 Mcg 2 puff INHALATION RT-BID #0 puff 05/11/17 [Symbicort 160-4.5 Mcg Inhaler] Diltiazem Cd [Cardizem Cd] 180 mg PO DAILY #24 cap.er.24h 05/11/17 Hydrochlorothiazide [Hydrodiuril] 25 mg PO DAILY #30 tab 05/11/17 Allergies Allergy/AdvReac Type Severity Reaction Status Date / Time No Known Allergies Allergy Verified 05/21/17 22:18 Review of Systems ROS Statement: Those systems with pertinent positive or pertinent negative responses have been documented in the HPI. ROS Other: All systems not noted in ROS Statement are negative. Constitutional: Denies: fever, chills, weakness Respiratory: Denies: cough, dyspnea, wheezes, hemoptysis Cardiovascular: Denies: chest pain, palpitations, edema, syncope Gastrointestinal: Denies: abdominal pain, vomiting, diarrhea Genitourinary: Denies: dysuria Musculoskeletal: Denies: back pain Skin: Denies: rash Neurological: Denies: headache, weakness, numbness Past Medical History Past Medical History: Asthma, COPD, Liver Disease Additional Past Medical History / Comment(s): pain disorder, cirrhosis, History of Any Multi-Drug Resistant Organisms: None Reported Past Surgical History: Orthopedic Surgery Additional Past Surgical History / Comment(s): neck fracture Past Anesthesia/Blood Transfusion Reactions: No Reported Reaction Past Psychological History: Anxiety Smoking Status: Former smoker Past Alcohol Use History: Daily Past Drug Use History: None Reported - Past Family History Father Family Medical History: Congestive Heart Failure (CHF), Hypertension Mother Family Medical History: Cancer, Hypertension Additional Family Medical History / Comment(s): Melanoma on nose. General Exam General appearance: alert, in no apparent distress Head exam: Present: atraumatic, normocephalic Eye exam: Present: normal appearance Respiratory exam: Present: normal lung sounds bilaterally. Absent: respiratory distress, wheezes, rales, rhonchi, stridor Cardiovascular Exam: Present: tachycardia, normal heart sounds. Absent: systolic murmur, diastolic murmur, rubs, gallop GI/Abdominal exam: Present: soft. Absent: distended, tenderness, guarding, rebound Extremities exam: Present: normal inspection, normal capillary refill. Absent: pedal edema, calf tenderness Back exam: Present: normal inspection. Absent: CVA tenderness (R), CVA tenderness (L) Neurological exam: Present: alert Skin exam: Present: warm, dry, intact, normal color. Absent: rash Course Vital Signs 05/21/17 05/22/17 21:25 00:38 Temperature 97.5 F L 98 F Pulse Rate 115 H 76 Respiratory 22 20 Rate Blood Pressure 145/89 123/78 O2 Sat by Pulse 97 98 Oximetry EKG Findings - EKG Results: EKG: interpreted by SANTA, sinus rhythm (With PVCs, including consecutive PVC. Rate approximately 112), normal axis, normal QRS, normal ST/T, no acute changes Medical Decision Making - Medical Decision Making I reevaluated the patient, who states that he continues to have no symptoms. I discussed the results with the patient. The d-dimer is normal by the age adjusted range, and the patient declines further evaluation for this. He would like to go home and I discussed return parameters and appropriate follow-up with him. He will return should he have any symptoms or feeling worse in anyway. - Lab Data Result diagrams: 05/21/17 21:35 05/21/17 21:35 Lab Results 05/21/17 05/21/17 05/21/17 Range/Units 21:35 21:35 21:35 WBC 7.9 (3.8-10.6) k/uL RBC 3.98 L (4.30-5.90) m/uL Hgb 15.3 (13.0-17.5) gm/dL Hct 44.1 (39.0-53.0) % MCV 110.9 H (80.0-100.0) fL MCH 38.3 H (25.0-35.0) pg MCHC 34.6 (31.0-37.0) g/dL RDW 15.8 H (11.5-15.5) % Plt Count 138 L (150-450) k/uL Neutrophils % 62 % Lymphocytes % 24 % Monocytes % 4 % Eosinophils % 7 % Basophils % 1 % Neutrophils # 4.9 (1.3-7.7) k/uL Lymphocytes # 1.9 (1.0-4.8) k/uL Monocytes # 0.3 (0-1.0) k/uL Eosinophils # 0.5 (0-0.7) k/uL Basophils # 0.1 (0-0.2) k/uL Anisocytosis (manual) Present Macrocytosis Marked PT (9.0-12.0) sec INR (<1.2) APTT (22.0-30.0) sec D-Dimer (<0.60) mg/L FEU Sodium 143 (137-145) mmol/L Potassium 4.1 (3.5-5.1) mmol/L Chloride 106 (98-107) mmol/L Carbon Dioxide 27 (22-30) mmol/L Anion Gap 10 mmol/L BUN 11 (9-20) mg/dL Creatinine 0.84 (0.66-1.25) mg/dL Est GFR (MDRD) Af Amer >60 (>60 ml/min/1.73 sqM) Est GFR (MDRD) Non-Af >60 (>60 ml/min/1.73 sqM) Glucose 93 (74-99) mg/dL Calcium 8.8 (8.4-10.2) mg/dL Total Bilirubin 0.8 (0.2-1.3) mg/dL AST 189 H (17-59) U/L ALT 278 H (21-72) U/L Alkaline Phosphatase 132 H (38-126) U/L Total Creatine Kinase 112 (55-170) U/L CK-MB (CK-2) 5.8 H* (0.0-2.4) ng/mL CK-MB (CK-2) Rel Index 5.2 Troponin I <0.012 (0.000-0.034) ng/mL NT-Pro-B Natriuret Pep pg/mL Total Protein 5.9 L (6.3-8.2) g/dL Albumin 3.1 L (3.5-5.0) g/dL 05/21/17 05/21/17 Range/Units 21:35 21:35 WBC (3.8-10.6) k/uL RBC (4.30-5.90) m/uL Hgb (13.0-17.5) gm/dL Hct (39.0-53.0) % MCV (80.0-100.0) fL MCH (25.0-35.0) pg MCHC (31.0-37.0) g/dL RDW (11.5-15.5) % Plt Count (150-450) k/uL Neutrophils % % Lymphocytes % % Monocytes % % Eosinophils % % Basophils % % Neutrophils # (1.3-7.7) k/uL Lymphocytes # (1.0-4.8) k/uL Monocytes # (0-1.0) k/uL Eosinophils # (0-0.7) k/uL Basophils # (0-0.2) k/uL Anisocytosis (manual) Macrocytosis PT 9.9 (9.0-12.0) sec INR 1.0 (<1.2) APTT 21.8 L (22.0-30.0) sec D-Dimer 0.63 H (<0.60) mg/L FEU Sodium (137-145) mmol/L Potassium (3.5-5.1) mmol/L Chloride (98-107) mmol/L Carbon Dioxide (22-30) mmol/L Anion Gap mmol/L BUN (9-20) mg/dL Creatinine (0.66-1.25) mg/dL Est GFR (MDRD) Af Amer (>60 ml/min/1.73 sqM) Est GFR (MDRD) Non-Af (>60 ml/min/1.73 sqM) Glucose (74-99) mg/dL Calcium (8.4-10.2) mg/dL Total Bilirubin (0.2-1.3) mg/dL AST (17-59) U/L ALT (21-72) U/L Alkaline Phosphatase (38-126) U/L Total Creatine Kinase (55-170) U/L CK-MB (CK-2) (0.0-2.4) ng/mL CK-MB (CK-2) Rel Index Troponin I (0.000-0.034) ng/mL NT-Pro-B Natriuret Pep 220 pg/mL Total Protein (6.3-8.2) g/dL Albumin (3.5-5.0) g/dL Disposition Clinical Impression: Hypertension Disposition: HOME SELF-CARE Condition: Good Instructions: Hypertension (ED) Referrals: Durga Garza MD [Primary Care Provider] - 1-2 days
[2017-05-21 22:59] LABS: Creatine Kinase 112 U/L (55-170)
--- NOTE | 2017-05-21 22:59 | XR ---
EXAM: XR Chest, 2 Views CLINICAL HISTORY: Reason: difficulty breathing TECHNIQUE: Frontal and lateral views of the chest. COMPARISON: with 04/29/17 chest radiography. FINDINGS: Lungs: Subsegmental atelectasis at the lung bases. No consolidation, pleural effusion or pneumothorax. Pleural space: See above. Heart: Top normal cardiac silhouette. No hilar or mediastinal enlargement. Mediastinum: See above. Bones/joints: Unremarkable. IMPRESSION: No acute cardiopulmonary disease.
[2017-05-21 23:12] LABS: Troponin I <0.012 ng/mL (0.000-0.034)
[2017-05-21 23:23] LABS: Creatine Kinase MB 5.8 ng/mL (0.0-2.4)
[2017-05-22 00:41] VITALS: BP 123/78; PULSE 76; RESP 20; TEMP 98
== END 2017-05-22 00:40 | disposition home or self-care (01) ==
LOC: EC 21:20 → SUPCPDRO 21:20 → EC 05-22 00:40
DX: I10 Essential (primary) hypertension (principal); R00.0 Tachycardia, unspecified; J44.9 Chronic obstructive pulmonary disease, unspecified; F45.41 Pain disorder exclusively related to psychological factors; Z87.891 Personal history of nicotine dependence; Z79.891 Long term (current) use of opiate analgesic; Z79.899 Other long term (current) drug therapy; Z82.49 Family history of ischemic heart disease and other diseases of the circulatory system
CPT/HCPCS: 36415; 71020; 80053; 82550; 82553; 83880; 84484; 85025; 85379; 85610; 85730; 93005; 99285

== ENCOUNTER 2017-07-13 15:01 | Inpatient (IN) | payer OTHER ==
[2017-07-13] MEDS ORDERED: NITROGLYCERIN OINT 1 INCH/GM PACKET TOPICAL STA (15:36)
[2017-07-13] MEDS ORDERED: ASPIRIN 81 MG PO STA (15:36)
--- NOTE | 2017-07-13 15:43 | ED ---
General Adult HPI - General Chief complaint: Recheck/Abnormal Lab/Rx Stated complaint: ETOH Time Seen by Provider: 07/13/17 15:15 Source: patient, EMS, RN notes reviewed Mode of arrival: EMS Limitations: no limitations - History of Present Illness Initial comments: This is a 61-year-old male presents emergency Department stating he's had congestive heart failure history in the past. Patient states yesterday got an argument with his ex- so he started drinking a 6 About 4:30 this morning. Patient started having chest pain today and some shortness of breath so his home care nurse direct him to come to the emergency department. Patient states the pain is been intermittent and he has had similar pains over the last month but today it is not sharp it is a pressure sensation. Patient denies any radiation of the pain. Patient denies any diaphoresis. Patient denies any nausea vomiting per patient denies any abdominal pain. Patient denies being lightheaded or having any dizzy spells or any near syncopal episodes. Patient denies headache patient denies numbness weakness. Patient denies any swelling of the legs or calf tenderness. - Related Data Home Medications Medication Instructions Recorded Confirmed Methadone [Dolophine] 30 mg PO BID 05/21/17 07/13/17 Ibuprofen [Advil] 400 mg PO BID PRN 06/12/17 07/13/17 Ziprasidone [Geodon] 20 mg PO DAILY 06/12/17 07/13/17 Previous Rx's Medication Instructions Recorded ALPRAZolam [Xanax] 1 mg PO BID #10 05/11/17 Budesonide-Formot 160-4.5 Mcg 2 puff INHALATION RT-BID #0 puff 05/11/17 [Symbicort 160-4.5 Mcg Inhaler] Diltiazem Cd [Cardizem CD] 180 mg PO DAILY #24 cap.er.24h 05/11/17 Hydrochlorothiazide [Hydrodiuril] 25 mg PO DAILY #30 tab 05/11/17 Clotrimazole Cream [Lotrimin Cream] 1 applic TOPICAL BID #1 tube 06/14/17 Ipratropium-Albuterol Nebulize 3 ml INHALATION RT-QID #120 neb 06/14/17 [Duoneb 0.5 mg-3 mg/3 ml Soln] Allergies Allergy/AdvReac Type Severity Reaction Status Date / Time [place] Feces Allergy Unknown Uncoded 06/12/17 17:27 Review of Systems ROS Statement: Those systems with pertinent positive or pertinent negative responses have been documented in the HPI. ROS Other: All systems not noted in ROS Statement are negative. 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 with abnormal LFTs, hypertension, CHF with diastolic dysfunction History of Any Multi-Drug Resistant Organisms: None Reported Past Surgical History: Orthopedic Surgery Additional Past Surgical History / Comment(s): neck fracture, Past Anesthesia/Blood Transfusion Reactions: No Reported Reaction Past Psychological History: Anxiety Smoking Status: Former smoker Past Alcohol Use History: Heavy, Occasional Past Drug Use History: None Reported - Past Family History Father Family Medical History: Congestive Heart Failure (CHF), Hypertension Mother Family Medical History: Cancer, Hypertension Additional Family Medical History / Comment(s): Melanoma on nose. General Exam - General Exam Comments Initial Comments: GENERAL: Patient is well-developed and well-nourished. Patient is nontoxic and well- hydrated and is in mild distress. ENT: Neck is soft and supple. No significant lymphadenopathy is noted. Oropharynx is clear. Moist mucous membranes. Neck has full range of motion without eliciting any pain. EYES: The sclera were anicteric and conjunctiva were pink and moist. Extraocular movements were intact and pupils were equal round and reactive to light. Eyelids were unremarkable. PULMONARY: Unlabored respirations. Good breath sounds bilaterally. No audible rales rhonchi or wheezing was noted. CARDIOVASCULAR: There is a regular rate and rhythm without any murmurs gallops or rubs. ABDOMEN: Soft and nontender with normal bowel sounds. No palpable organomegaly was noted. There is no palpable pulsatile mass. SKIN: Skin is clear with no lesions or rashes and otherwise unremarkable. NEUROLOGIC: Patient is alert and oriented x3. Cranial nerves II through XII are grossly intact. Motor and sensory are also intact. Normal speech, volume and content. Symmetrical smile. MUSCULOSKELETAL: Normal extremities with adequate strength and full range of motion. No lower extremity swelling or edema. No calf tenderness. LYMPHATICS: No significant lymphadenopathy is noted PSYCHIATRIC: Normal psychiatric evaluation. Limitations: no limitations Course Vital Signs 07/13/17 07/13/17 07/13/17 15:17 17:21 18:40 Pulse Rate 101 H 107 H Respiratory 20 16 20 Rate Blood Pressure 101/63 102/58 O2 Sat by Pulse 99 97 Oximetry Medical Decision Making - Medical Decision Making EKG shows a sinus rhythm at 89 bpm PA interval 216 QRS is 86 QT interval 352 QTC is 428 per patient has flipped T waves in leads 1 and aVL which was seen on an old EKG however patient also has some ST segment depression in leads V4 through V6 which is new when compared to an old EKG Chest x-ray shows no acute abnormality. I spoke with Dr. Garza agreed to admit the patient admitted the patient I wrote admitting orders - Lab Data Result diagrams: 07/13/17 17:55 07/13/17 17:55 Lab Results 07/13/17 07/13/17 07/13/17 Range/Units 16:10 16:10 17:55 WBC 7.3 (3.8-10.6) k/uL RBC 4.43 (4.30-5.90) m/uL Hgb 16.3 (13.0-17.5) gm/dL Hct 48.3 (39.0-53.0) % MCV 109.0 H (80.0-100.0) fL MCH 36.7 H (25.0-35.0) pg MCHC 33.7 (31.0-37.0) g/dL RDW 14.0 (11.5-15.5) % Plt Count 247 (150-450) k/uL PT (9.0-12.0) sec INR (<1.2) APTT (22.0-30.0) sec Sodium (137-145) mmol/L Potassium (3.5-5.1) mmol/L Chloride (98-107) mmol/L Carbon Dioxide (22-30) mmol/L Anion Gap mmol/L BUN (9-20) mg/dL Creatinine (0.66-1.25) mg/dL Est GFR (MDRD) Af Amer (>60 ml/min/1.73 sqM) Est GFR (MDRD) Non-Af (>60 ml/min/1.73 sqM) Glucose (74-99) mg/dL Calcium (8.4-10.2) mg/dL Magnesium 1.9 (1.6-2.3) mg/dL Total Bilirubin (0.2-1.3) mg/dL AST (17-59) U/L ALT (21-72) U/L Alkaline Phosphatase (38-126) U/L Total Creatine Kinase 164 (55-170) U/L CK-MB (CK-2) 3.5 H* (0.0-2.4) ng/mL CK-MB (CK-2) Rel Index 2.1 Troponin I 0.021 (0.000-0.034) ng/mL Total Protein (6.3-8.2) g/dL Albumin (3.5-5.0) g/dL Serum Alcohol 115 mg/dL 07/13/17 07/13/17 Range/Units 17:55 17:55 WBC (3.8-10.6) k/uL RBC (4.30-5.90) m/uL Hgb (13.0-17.5) gm/dL Hct (39.0-53.0) % MCV (80.0-100.0) fL MCH (25.0-35.0) pg MCHC (31.0-37.0) g/dL RDW (11.5-15.5) % Plt Count (150-450) k/uL PT 10.3 (9.0-12.0) sec INR 1.0 (<1.2) APTT 18.0 L (22.0-30.0) sec Sodium 139 (137-145) mmol/L Potassium 2.8 L* (3.5-5.1) mmol/L Chloride 95 L (98-107) mmol/L Carbon Dioxide 30 (22-30) mmol/L Anion Gap 14 mmol/L BUN 12 (9-20) mg/dL Creatinine 0.89 (0.66-1.25) mg/dL Est GFR (MDRD) Af Amer >60 (>60 ml/min/1.73 sqM) Est GFR (MDRD) Non-Af >60 (>60 ml/min/1.73 sqM) Glucose 95 (74-99) mg/dL Calcium 9.3 (8.4-10.2) mg/dL Magnesium (1.6-2.3) mg/dL Total Bilirubin 0.5 (0.2-1.3) mg/dL AST 142 H (17-59) U/L ALT 255 H (21-72) U/L Alkaline Phosphatase 83 (38-126) U/L Total Creatine Kinase (55-170) U/L CK-MB (CK-2) (0.0-2.4) ng/mL CK-MB (CK-2) Rel Index Troponin I (0.000-0.034) ng/mL Total Protein 6.9 (6.3-8.2) g/dL Albumin 4.0 (3.5-5.0) g/dL Serum Alcohol mg/dL Disposition Clinical Impression: Hypokalemia, Alcohol intoxication, Chest pain Disposition: ADMITTED IP TO THIS HOSP Referrals: Durga Garza MD [Primary Care Provider] - 1-2 days Time of Disposition: 18:42
[2017-07-13 16:27] LABS: Magnesium 1.9 mg/dL (1.6-2.3)
[2017-07-13 16:51] LABS: Troponin I 0.021 ng/mL (0.000-0.034)
[2017-07-13 16:53] LABS: Creatine Kinase MB 3.5 ng/mL (0.0-2.4)
--- NOTE | 2017-07-13 16:53 | XR ---
EXAMINATION TYPE: XR chest 2V DATE OF EXAM: 07/13/2017 COMPARISON: June 12, 2017 HISTORY: Shortness of breath TECHNIQUE: Frontal and lateral views of the chest are obtained. FINDINGS: Scattered senescent parenchymal changes noted. Hyperinflation compatible with COPD. There is density noted within the right midlung zone which is associated with underlying rib fracture s of right ribs 7 and 8. This could reflect underlying callus formation as the rib fractures were pre sent previously. No sizable pneumothorax identified at this time. Heart size is stable. Mediastinal structures are stable and grossly unremarkable. No evidence for hilar prominence. Degenerative changes dorsal spine. IMPRESSION: 1. No evidence for acute pulmonary disease. 2. Right-sided rib fractures with probable underlying callus formation. No sizable pneumothorax.
[2017-07-13 18:06] LABS: Basophils # (A) 0.1 k/uL (0-0.2); Basophils % (A) 1 %; CHCM 34.1; Eosinophils # (A) 0.5 k/uL (0-0.7); Eosinophils % (A) 7 %; HCT 48.3 % (39.0-53.0); HDW 2.88; HGB 16.3 gm/dL (13.0-17.5); Luc # (Auto) 0.31; Luc % (Auto) 4; Lymphocytes # (A) 3.3 k/uL (1.0-4.8); Lymphocytes % (A) 46 %; MCH 36.7 pg (25.0-35.0); MCHC 33.7 g/dL (31.0-37.0); Macrocytosis Marked; Mean Platelet Volume 6.9; Monocytes # (A) 0.5 k/uL (0-1.0); Monocytes % (A) 6 %; Neutrophils # (A) 2.6 k/uL (1.3-7.7); Neutrophils % (A) 36 %; RBC 4.43 m/uL (4.30-5.90); WBC 7.3 k/uL (3.8-10.6); WBC (Perox) 7.62
[2017-07-13 18:16] LABS: ALT 255 U/L (21-72); AST 142 U/L (17-59); Alkaline Phosphatase 83 U/L (38-126); Blood Urea Nitrogen 12 mg/dL (9-20); Calcium 9.3 mg/dL (8.4-10.2); Carbon Dioxide 30 mmol/L (22-30); Glucose 95 mg/dL (74-99); Non-African American GFR(MDRD) >60 (>60 ml/min/1.73 sqM); Sodium 139 mmol/L (137-145); Total Bilirubin 0.5 mg/dL (0.2-1.3); Total Protein 6.9 g/dL (6.3-8.2)
[2017-07-13 18:17] LABS: Anion Gap 14 mmol/L; Chloride 95 mmol/L (98-107)
[2017-07-13 18:18] LABS: Potassium 2.8 mmol/L (3.5-5.1)
[2017-07-13 18:24] LABS: Prothrombin Time 10.3 sec (9.0-12.0)
[2017-07-13] MEDS ORDERED: POTASSIUM CHLORIDE ER 20 MEQ TAB.ER PO STA (18:34)
[2017-07-13] MEDS ORDERED: POTASSIUM CHLORIDE 20 MEQ, LIDOCAINE 2% INJ 20 MG in SODIUM CHLORIDE 0.9% 100 ML IVPB ONE (18:34)
[2017-07-13 18:43] LABS: Polychromasia Present
[2017-07-13] MEDS ORDERED: NITROGLYCERIN SL TABS 0.4 MG TAB SUBLINGUAL PRN (18:43)
[2017-07-13 22:31] LABS: Troponin I 0.019 ng/mL (0.000-0.034)
[2017-07-13 22:39] LABS: Creatine Kinase MB 2.6 ng/mL (0.0-2.4)
[2017-07-13] MEDS ORDERED: IBUPROFEN 400 MG TAB PO PRN (23:38)
[2017-07-14] MEDS: HYDROCHLOROTHIAZIDE 25 MG TAB PO SCH ×2 (00:27→09:23)
[2017-07-14] MEDS: METHADONE 10 MG TAB PO SCH ×2 (00:27→09:22)
[2017-07-14] MEDS: ALPRAZolam 0.5 MG TAB PO SCH ×2 (00:27→09:21)
[2017-07-14] MEDS: DILTIAZEM CD 180 MG CAP.ER.24H PO SCH ×2 (00:27→09:23)
[2017-07-14 01:06] VITALS: BMI 27.1
[2017-07-14] MEDS: NITROGLYCERIN OINT 1 INCH/GM PACKET TOPICAL SCH ×2 (01:29→06:01)
[2017-07-14] MEDS: IPRATROPIUM-ALBUTEROL 3 ML NEB INHALATION SCH ×4 (03:47→16:18)
[2017-07-14] MEDS: SYMBICORT 160-4.5 MCG INHALER INHALATION SCH ×3 (03:47→09:28)
[2017-07-14 05:09] LABS: Anion Gap 11 mmol/L; Blood Urea Nitrogen 18 mg/dL (9-20); Calcium 8.9 mg/dL (8.4-10.2); Carbon Dioxide 31 mmol/L (22-30); Chloride 96 mmol/L (98-107); Cholesterol 145 mg/dL (<200); Glucose 106 mg/dL (74-99); HDL Cholesterol 43 mg/dL (40-60); Non-African American GFR(MDRD) >60 (>60 ml/min/1.73 sqM); Potassium 3.1 mmol/L (3.5-5.1); Sodium 138 mmol/L (137-145)
[2017-07-14 05:18] LABS: Troponin I 0.021 ng/mL (0.000-0.034)
[2017-07-14 05:36] LABS: Creatine Kinase MB 2.6 ng/mL (0.0-2.4)
[2017-07-14] MEDS ORDERED: Potassium Replacement Protocol 1 EACH MISC MISCELLANE PRN (06:00)
[2017-07-14] MEDS: POTASSIUM CHLORIDE ER 20 MEQ TAB.ER PO SCH ×2 (06:55→09:22)
[2017-07-14] MEDS ORDERED: CLOTRIMAZOLE 1% CREAM 15 GM TUBE TOPICAL SCH (09:00)
[2017-07-14] MEDS ORDERED: ZIPRASIDONE 20 MG CAP PO SCH (09:00)
[2017-07-14] MEDS ORDERED: ASPIRIN 325 MG TAB PO SCH (09:00)
--- NOTE | 2017-07-14 09:05 | P.CRDCN ---
History of Present Illness Consult date: 07/14/17 Requesting physician: Durga Garza Reason for Consult (text): chest pain Chief complaint: shortness of breath History of present illness: This is a pleasant 62-year-old gentleman who presented to the emergency department with complaints of chest heaviness and shortness of breath on exertion. He has a history of hypertension, COPD, alcohol abuse, liver disease and questionable history of heart failure. He apparently was drinking yesterday, for the first time in about 7-10 days, went to the grocery store and noticed some difficulty breathing when he was carrying his bags to his car he has also had some chest heaviness at this time. Symptoms resolved with rest. He went home was seen by his home care nurse who advised him to seek treatment in the emergency department as apparently his blood pressure was elevated at that time as well. Upon presentation, chest x-ray showed no acute process. EKG showed sinus rhythm with diffuse ST-T wave abnormalities. Serum alcohol level was 1:15, potassium 2.8 which was supplemented and repeat was 3.1. Troponins have been negative at 0.021, 0.019 and 0.021. Upon examination, patient is resting comfortably in bed. He continues to complain of shortness of breath with activity as well as intermittent chest discomfort that he describes as a heaviness or pressure with occasional sharp pain lasts a few minutes and occurs at rest and with activity. In speaking with him it sounds as if discomfort with activity is slightly different from what he experiences at rest. Past Medical History Past Medical History: Asthma, Heart Failure, COPD, Hypertension, Liver Disease, Pneumonia Additional Past Medical History / Comment(s): COPD, recent hospitalization with fall and a small right-sided pneumothorax, traumatic seventh through ninth nondisplaced rib fractures, alcoholism, previous history of delirium tremens, liver disease/alcoholic in nature with abnormal LFTs, hypertension, CHF with diastolic dysfunction History of Any Multi-Drug Resistant Organisms: None Reported Past Surgical History: Orthopedic Surgery Additional Past Surgical History / Comment(s): neck fracture, Past Anesthesia/Blood Transfusion Reactions: No Reported Reaction Past Psychological History: Anxiety Smoking Status: Former smoker Past Alcohol Use History: Heavy, Occasional Past Drug Use History: None Reported Additional Drug Use History / Comment(s): pt. states he has been drinking alot lately, pt. states he does not drink everyday - Past Family History Father Family Medical History: Congestive Heart Failure (CHF), Coronary Artery Disease (CAD), Hypertension Mother Family Medical History: Cancer, Hypertension Additional Family Medical History / Comment(s): Melanoma on nose. Medications and Allergies Home Medications Medication Instructions Recorded Confirmed Type ALPRAZolam [Xanax] 1 mg PO BID #10 05/11/17 07/13/17 Rx Budesonide-Formot 160-4.5 Mcg 2 puff INHALATION RT-BID #0 puff 05/11/17 Rx [Symbicort 160-4.5 Mcg Inhaler] Diltiazem Cd [Cardizem CD] 180 mg PO DAILY #24 cap.er.24h 05/11/17 07/13/17 Rx Hydrochlorothiazide [Hydrodiuril] 25 mg PO DAILY #30 tab 05/11/17 07/13/17 Rx Methadone [Dolophine] 30 mg PO BID 05/21/17 07/13/17 History Ibuprofen [Advil] 400 mg PO BID PRN 06/12/17 07/13/17 History Ziprasidone [Geodon] 20 mg PO DAILY 06/12/17 07/13/17 History Clotrimazole Cream [Lotrimin Cream] 1 applic TOPICAL BID #1 tube 06/14/17 Rx Ipratropium-Albuterol Nebulize 3 ml INHALATION RT-QID #120 neb 06/14/17 Rx [Duoneb 0.5 mg-3 mg/3 ml Soln] Allergies Allergy/AdvReac Type Severity Reaction Status Date / Time [place] Feces Allergy Unknown Uncoded 07/14/17 00:45 Physical Exam Vitals: Vital Signs Temp Pulse Pulse Resp BP BP Pulse Ox 07/14/17 06:22 74 18 07/14/17 06:07 98.1 F 74 18 124/70 93 L 07/14/17 02:00 98.0 F 110 H 18 113/62 98 07/14/17 01:45 110 H 18 07/13/17 21:45 117 H 18 07/13/17 21:43 98.0 F 117 H 18 109/57 99 07/13/17 18:40 107 H 20 102/58 97 07/13/17 17:21 101 H 16 101/63 99 07/13/17 15:17 20 Intake and Output 07/13/17 07/14/17 07/14/17 22:59 06:59 14:59 Intake Total 580 Output Total 300 450 Balance 280 -450 Intake: Intake, IV Titration 100 Amount Potassium Chloride 20 meq 100 Lidocaine 2% Inj 20 mg In Sodium Chloride 0.9% 100 ml @ 55.5 mls/hr IVPB ONCE ONE Rx#:[id number] Tube Feeding 480 Output: Urine 300 450 Other: Voiding Method Urinal Weight 83.461 kg 89.8 kg PHYSICAL EXAMINATION: HEENT: Head is atraumatic, normocephalic. Pupils equal, round. Neck is supple. There is no elevated jugular venous pressure. HEART EXAMINATION: Heart sounds regular, S1 and S2 normal. No murmur or gallop heard. CHEST EXAMINATION: Lungs reveal diminished air entry bilaterally. No chest wall tenderness is noted on palpation or with deep breathing. ABDOMEN: Soft, nontender. Bowel sounds are heard. No organomegaly noted. EXTREMITIES: 1+ peripheral pulses with no evidence of peripheral edema and no calf tenderness noted. NEUROLOGIC patient is awake, alert and oriented x3. . Results 07/13/17 17:55 07/14/17 03:44 Cardiac Enzymes 07/13/17 07/13/17 07/13/17 Range/Units 16:10 17:55 21:54 AST 142 H (17-59) U/L CK-MB (CK-2) 3.5 H* 2.6 H* (0.0-2.4) ng/mL Troponin I 0.021 0.019 (0.000-0.034) ng/mL 07/14/17 Range/Units 03:44 AST (17-59) U/L CK-MB (CK-2) 2.6 H* (0.0-2.4) ng/mL Troponin I 0.021 (0.000-0.034) ng/mL Coagulation 07/13/17 Range/Units 17:55 PT 10.3 (9.0-12.0) sec APTT 18.0 L (22.0-30.0) sec Lipids 07/14/17 Range/Units 03:44 Triglycerides 261 H (<150) mg/dL Cholesterol 145 (<200) mg/dL HDL Cholesterol 43 (40-60) mg/dL CBC 07/13/17 Range/Units 17:55 WBC 7.3 (3.8-10.6) k/uL RBC 4.43 (4.30-5.90) m/uL Hgb 16.3 (13.0-17.5) gm/dL Hct 48.3 (39.0-53.0) % Plt Count 247 (150-450) k/uL Comprehensive Metabolic Panel 07/13/17 07/14/17 Range/Units 17:55 03:44 Sodium 139 138 (137-145) mmol/L Potassium 2.8 L* 3.1 L (3.5-5.1) mmol/L Chloride 95 L 96 L (98-107) mmol/L Carbon Dioxide 30 31 H (22-30) mmol/L BUN 12 18 (9-20) mg/dL Creatinine 0.89 0.93 (0.66-1.25) mg/dL Glucose 95 106 H (74-99) mg/dL Calcium 9.3 8.9 (8.4-10.2) mg/dL AST 142 H (17-59) U/L ALT 255 H (21-72) U/L Alkaline Phosphatase 83 (38-126) U/L Total Protein 6.9 (6.3-8.2) g/dL Albumin 4.0 (3.5-5.0) g/dL Current Medications Generic Name Dose Route Start Last Admin Trade Name Freq PRN Reason Stop Dose Admin Albuterol/Ipratropium 3 ml 07/13/17 23:39 07/14/17 03:47 Duoneb 0.5 Mg-3 Mg/3 Ml Soln INHALATION Not Given RT-QID [facility] Alprazolam 1 mg 07/13/17 23:45 07/14/17 00:27 Xanax PO 1 mg BID [facility] Administration Aspirin 325 mg 07/14/17 09:00 Aspirin PO DAILY [facility] Budesonide/Formoterol Fumarate 2 puff 07/13/17 23:39 07/14/17 03:47 Symbicort 160-4.5 Mcg Inhaler INHALATION Not Given RT-BID [facility] Clotrimazole 1 applic 07/14/17 09:00 Lotrimin Cream TOPICAL BID [facility] Diltiazem HCl 180 mg 07/13/17 23:45 07/14/17 00:27 Cardizem Cd PO 180 mg DAILY [facility] Administration Hydrochlorothiazide 25 mg 07/13/17 23:45 07/14/17 00:27 Hydrodiuril PO 25 mg DAILY EL Administration Ibuprofen 400 mg 07/13/17 23:38 Motrin PO BID PRN Pain Methadone HCl 30 mg 07/13/17 23:45 07/14/17 00:27 Dolophine PO 30 mg BID EL Administration Miscellaneous Information 1 each 07/14/17 06:00 Potassium Per Protocol MISCELLANE DAILY PRN Per Protocol Protocol Nitroglycerin 1 inch 07/14/17 00:00 07/14/17 06:01 Nitro-Bid Oint TOPICAL Not Given Q6HR EL Nitroglycerin 0.4 mg 07/13/17 18:43 Nitrostat SUBLINGUAL Q5M PRN Chest Pain Ziprasidone 20 mg 07/14/17 09:00 Geodon PO DAILY EL Intake and Output 07/13/17 07/14/17 07/14/17 22:59 06:59 14:59 Intake Total 580 Output Total 300 450 Balance 280 -450 Intake: Intake, IV Titration 100 Amount Potassium Chloride 20 meq 100 Lidocaine 2% Inj 20 mg In Sodium Chloride 0.9% 100 ml @ 55.5 mls/hr IVPB ONCE ONE Rx#:[id number] Tube Feeding 480 Output: Urine 300 450 Other: Voiding Method Urinal Weight 83.461 kg 89.8 kg 07/13/17 17:55 07/14/17 03:44 EKG Interpretations (text) Sinus rhythm with diffuse ST-T wave abnormalities Assessment and Plan Plan: Assessment and plan #1 chest pain #2 shortness of breath on exertion #3 history of COPD #4 hypertension #5 questionable history of heart failure, most recent echocardiogram showed normal LV systolic function with an ejection fraction between 60-65%. #6 alcohol abuse From Cardiology's perspective, old records reviewed, normal LV systolic function in April. We will obtain a Lexiscan Cardiolyte. Further recommendations depending on findings of the Stress test. CHIEF ENGINEER note has been reviewed, I agree with a documented findings and plan of care. Patient was seen and examined.
[2017-07-14] MEDS ORDERED: AMINOPHYLLINE 500 MG/20 ML VIAL IV PRN (10:01)
[2017-07-14] MEDS ORDERED: REGADENOSON 0.4 MG/5 ML SYRINGE IV ONE (10:01)
[2017-07-14 10:31] VITALS: RESP 20
--- NOTE | 2017-07-14 11:05 | P.CNPUL ---
History of Present Illness Consult date: 07/14/17 Requesting physician: Stella Riley Chief complaint: Shortness of breath History of present illness: This is a 62-year-old male patient who is well-known to our services. This patient came into the emergency room yesterday with chest tightness and heaviness accompanied with progressive shortness of breath on exertion and/or with extensive conversation. Patient does have a standing history of alcohol abuse and apparently he started drinking yesterday and had not drank in almost a week and a half, his home health care nurse assessed him and noted the patient to be confused with hypotension and shortness of breath so she advised him to go to the emergency room. During his ER workup the patient had an EKG noted to be in sinus rhythm with some diffuse ST wave abnormalities. He did have a potassium of 2.8 which was replaced and repeat was 3.1. Troponins were negative. Patient did have a serum certified nurse practitioner level of 115. Chest x-ray was negative for any acute process. Upon examination the patient's resting up in bed on room air. He states he occasionally still does have some chest pressure. He continues to have some intermittent shortness of breath with exertion. Denies any cough or congestion at this time. He is afebrile, no further complaints, all labs and reports have been reviewed. Of note the patient was recently admitted to the hospital and discharged on for acute exacerbation of COPD. Review of Systems 14 point review of systems was completed and is negative unless noted above in the HPI. Past Medical History Past Medical History: Asthma, Heart Failure, COPD, Hypertension, Liver Disease, Pneumonia Additional Past Medical History / Comment(s): COPD, recent hospitalization with fall and a small right-sided pneumothorax, traumatic seventh through ninth nondisplaced rib fractures, alcoholism, previous history of delirium tremens, liver disease/alcoholic in nature with abnormal LFTs, hypertension, CHF with diastolic dysfunction History of Any Multi-Drug Resistant Organisms: None Reported Past Surgical History: Orthopedic Surgery Additional Past Surgical History / Comment(s): neck fracture, Past Anesthesia/Blood Transfusion Reactions: No Reported Reaction Past Psychological History: Anxiety Smoking Status: Former smoker Past Alcohol Use History: Heavy, Occasional Past Drug Use History: None Reported Additional Drug Use History / Comment(s): pt. states he has been drinking alot lately, pt. states he does not drink everyday - Past Family History Father Family Medical History: Congestive Heart Failure (CHF), Coronary Artery Disease (CAD), Hypertension Mother Family Medical History: Cancer, Hypertension Additional Family Medical History / Comment(s): Melanoma on nose. Medications and Allergies Home Medications Medication Instructions Recorded Confirmed Type ALPRAZolam [Xanax] 1 mg PO BID #10 05/11/17 07/13/17 Rx Budesonide-Formot 160-4.5 Mcg 2 puff INHALATION RT-BID #0 puff 05/11/17 Rx [Symbicort 160-4.5 Mcg Inhaler] Diltiazem Cd [Cardizem CD] 180 mg PO DAILY #24 cap.er.24h 05/11/17 07/13/17 Rx Hydrochlorothiazide [Hydrodiuril] 25 mg PO DAILY #30 tab 05/11/17 07/13/17 Rx Methadone [Dolophine] 30 mg PO BID 05/21/17 07/13/17 History Ibuprofen [Advil] 400 mg PO BID PRN 06/12/17 07/13/17 History Ziprasidone [Geodon] 20 mg PO DAILY 06/12/17 07/13/17 History Clotrimazole Cream [Lotrimin Cream] 1 applic TOPICAL BID #1 tube 06/14/17 Rx Ipratropium-Albuterol Nebulize 3 ml INHALATION RT-QID #120 neb 06/14/17 Rx [Duoneb 0.5 mg-3 mg/3 ml Soln] Allergies Allergy/AdvReac Type Severity Reaction Status Date / Time [place] Feces Allergy Unknown Uncoded 07/14/17 00:45 Physical Exam Vitals: Vital Signs Temp Pulse Pulse Resp BP BP Pulse Ox 07/14/17 09:18 76 07/14/17 09:07 76 07/14/17 08:00 98.1 F 81 20 110/59 94 L 07/14/17 06:22 74 18 07/14/17 06:07 98.1 F 74 18 124/70 93 L 07/14/17 02:00 98.0 F 110 H 18 113/62 98 07/14/17 01:45 110 H 18 07/13/17 21:45 117 H 18 07/13/17 21:43 98.0 F 117 H 18 109/57 99 07/13/17 18:40 107 H 20 102/58 97 07/13/17 17:21 101 H 16 101/63 99 07/13/17 15:17 20 Intake and Output 07/13/17 07/14/17 07/14/17 22:59 06:59 14:59 Intake Total 580 Output Total 300 450 Balance 280 -450 Intake: Intake, IV Titration 100 Amount Potassium Chloride 20 meq 100 Lidocaine 2% Inj 20 mg In Sodium Chloride 0.9% 100 ml @ 55.5 mls/hr IVPB ONCE ONE Rx#:[id number] Tube Feeding 480 Output: Urine 300 450 Other: Voiding Method Urinal Urinal Weight 83.461 kg 89.8 kg GENERAL EXAM: Alert, active, comfortable in no apparent distress. HEAD: Normocephalic. EYES: Normal reaction of pupils, equal size. NOSE: Clear with pink turbinates. THROAT: No erythema or exudates. NECK: No masses, no JVD. CHEST: No chest wall deformity. LUNGS: Poor air entry bilaterally. Some faint expiratory wheezes noted. Bases diminished. CVS: S1 and S2 normal with no audible mumurs, regular rhythm. ABDOMEN: No hepatosplenomegaly, normal bowel sounds, no guarding or rigidity. EXTREMITIES: No edema noted, pedal pulses palpable. SKIN: No rashes CENTRAL NERVOUS SYSTEM: No focal deficits, tone is normal in all 4 extremities. Results - Laboratory Findings CBC and BMP: 07/13/17 17:55 07/14/17 03:44 PT/INR, D-dimer PT 10.3 sec (9.0-12.0) 07/13/17 17:55 INR 1.0 (<1.2) 07/13/17 17:55 Abnormal lab findings: Abnormal Labs 07/13/17 07/13/17 07/13/17 16:10 17:55 17:55 MCV 109.0 H MCH 36.7 H APTT 18.0 L Potassium Chloride Carbon Dioxide Glucose AST ALT CK-MB (CK-2) 3.5 H* Triglycerides 07/13/17 07/13/17 07/14/17 17:55 21:54 03:44 MCV MCH APTT Potassium 2.8 L* Chloride 95 L Carbon Dioxide Glucose AST 142 H ALT 255 H CK-MB (CK-2) 2.6 H* 2.6 H* Triglycerides 07/14/17 03:44 MCV MCH APTT Potassium 3.1 L Chloride 96 L Carbon Dioxide 31 H Glucose 106 H AST ALT CK-MB (CK-2) Triglycerides 261 H - Diagnostic Findings Chest x-ray: report reviewed, image reviewed Assessment and Plan Plan: Assessment Chest pain and shortness of breath on exertion COPD Hypokalemia Alcohol intoxication, history of alcohol abuse Recent hospitalization with acute exacerbation of COPD Plan Medications have been reviewed and will be continued as ordered. Continue with pulmonary hygiene, coughing and deep breathing exercises, and supportive care. Supplemental oxygen to maintain oxygen saturations of 92% or better. Continue nebulizer treatments. GI and DVT prophylaxis. Cardiology on consult and we appreciate recommendations. We will continue to monitor labs/results and adjust treatment as necessary. Further recommendations pending. I performed an examination of the patient and discussed their management with the nurse practitioner. I have reviewed the nurse practitioner's note and agree with the documented findings and plan of care.
--- NOTE | 2017-07-14 12:24 | EST ---
EXERCISE STRESS AGE: 62 SEX: M HT: 69" WT: 197 lbs. PROTOCOL: LEXISCAN CARDIOLITE STRESS TEST HEART RATE REST: 74 BLOOD PRESSURE REST: 128/76 MAXIMUM HEART RATE ACHIEVED: 86 MAXIMUM BLOOD PRESSURE: 128/76 INDICATIONS: Chest pain, difficulty in breathing. CLINICAL INFORMATION: Baseline EKG shows sinus rhythm, nonspecific ST-T wave changes. Patient was given intravenous Lexiscan as per protocol. Did not have chest pain or diagnostic ST-segment depression. CONCLUSION: 1. Inconclusive EKG part of the stress test due to baseline EKG abnormalities. 2. Cardiolite portion of the stress test will be reported separately. MMODL / IJN: [id number] /
[2017-07-14 13:01] VITALS: BP 112/64; PULSE 78; TEMP 98.4
--- NOTE | 2017-07-14 13:43 | NM ---
EXAMINATION TYPE: NM stress lexiscan cardiolite DATE OF EXAM: 07/14/2017 COMPARISON: NONE HISTORY: Chest heaviness and exertional shortness of breath per order. History of tobacco use quit 25 years ago and family history of heart attack with personal history of hypertension, COPD, and asthma . TECHNIQUE: After the intravenous administration of 11.8 mCi Tc 99m Sestamibi - Cardiolite resting SP ECT images acquired 45 minutes post injection. The patient received 0.4mg Lexiscan, 29 mCi Tc 99m Sestamibi - Stress images obtained 30 minutes post injection FINDINGS: Review of stress and rest SPECT images demonstrates no distinct perfusion abnormality. Gated analysi s shows normal wall motion with an estimated left ventricular ejection fraction of 60 %. IMPRESSION: No scintigraphic evidence for reversible ischemia. ST depression changes noted on EKG during study. C linical correlation advised.
[2017-07-14 14:56] LABS: ALT 220 U/L (21-72); AST 125 U/L (17-59)
--- NOTE | 2017-07-14 15:49 | P.HPIM ---
History of Present Illness 62-year-old gentleman came in with complaints of chest heaviness which started yesterday he still has little bit of chest heaviness , pain radiating to the back patient chest pain is nonpleuritic in nature. Patient does have history of COPD not in acute exacerbation at this point of time. Patient chest pain improved at this time patient chest pain is not related to food, patient underwent stress test which was negative cleared by cardiology patient will be discharged today. Patient will be discharged on Symbicort and albuterol as well although patient does not appear to be in COPD examination patient is an alcoholic and used to drink alcohol almost on daily basis and not willing to quit alcohol. Patient may have somehow colic gastritis because of which will provide him 14 days of for omeprazole. Patient has low potassium which will be supplemented before discharge patient has acute alcoholic hepatitis extensive counseling regarding alcohol use was provided. Review of Systems REVIEW OF SYSTEMS: CONSTITUTIONAL: No fever, no malaise, no fatigue. HEENT: No recent visual problems or hearing problems. Denied any sore throat. CARDIOVASCULAR: No orthopnea, PND, no palpitations, no syncope. PULMONARY: No shortness of breath, no cough, no hemoptysis. GASTROINTESTINAL: No diarrhea, no nausea, no vomiting, no abdominal pain. Normoactive bowel sounds. NEUROLOGICAL: No headaches, no weakness, no numbness. HEMATOLOGICAL: Denies any bleeding or petechiae. GENITOURINARY: Denies any burning micturition, frequency, or urgency. MUSCULOSKELETAL/RHEUMATOLOGICAL: Denies any joint pain, swelling, or any muscle pain. ENDOCRINE: Denies any polyuria or polydipsia. The rest of the 14-point review of systems is negative. Past Medical History Past Medical History: Asthma, Heart Failure, COPD, Hypertension, Liver Disease, Pneumonia Additional Past Medical History / Comment(s): COPD, recent hospitalization with fall and a small right-sided pneumothorax, traumatic seventh through ninth nondisplaced rib fractures, alcoholism, previous history of delirium tremens, liver disease/alcoholic in nature with abnormal LFTs, hypertension, CHF with diastolic dysfunction History of Any Multi-Drug Resistant Organisms: None Reported Past Surgical History: Orthopedic Surgery Additional Past Surgical History / Comment(s): neck fracture, Past Anesthesia/Blood Transfusion Reactions: No Reported Reaction Past Psychological History: Anxiety Smoking Status: Former smoker Past Alcohol Use History: Heavy, Occasional Past Drug Use History: None Reported Additional Drug Use History / Comment(s): pt. states he has been drinking alot lately, pt. states he does not drink everyday - Past Family History Father Family Medical History: Congestive Heart Failure (CHF), Coronary Artery Disease (CAD), Hypertension Mother Family Medical History: Cancer, Hypertension Additional Family Medical History / Comment(s): Melanoma on nose. Medications and Allergies Home Medications Medication Instructions Recorded Confirmed Type ALPRAZolam [Xanax] 1 mg PO BID #10 05/11/17 07/13/17 Rx Budesonide-Formot 160-4.5 Mcg 2 puff INHALATION RT-BID #0 puff 05/11/17 Rx [Symbicort 160-4.5 Mcg Inhaler] Diltiazem Cd [Cardizem CD] 180 mg PO DAILY #24 cap.er.24h 05/11/17 07/13/17 Rx Methadone [Dolophine] 30 mg PO BID 05/21/17 07/13/17 History Ziprasidone [Geodon] 20 mg PO DAILY 06/12/17 07/13/17 History Clotrimazole Cream [Lotrimin Cream] 1 applic TOPICAL BID #1 tube 06/14/17 Rx Ipratropium-Albuterol Nebulize 3 ml INHALATION RT-QID #120 neb 06/14/17 Rx [Duoneb 0.5 mg-3 mg/3 ml Soln] Omeprazole [PriLOSEC] 40 mg PO AC-BRKFST #14 capsule. 07/14/17 Rx Allergies Allergy/AdvReac Type Severity Reaction Status Date / Time [place] Feces Allergy Unknown Uncoded 07/14/17 00:45 Physical Exam Vitals: Vital Signs Temp Pulse Pulse Resp BP BP Pulse Ox 07/14/17 12:00 98.4 F 78 20 112/64 94 L 07/14/17 09:18 76 07/14/17 09:07 76 07/14/17 08:00 98.1 F 81 20 110/59 94 L 07/14/17 06:22 74 18 07/14/17 06:07 98.1 F 74 18 124/70 93 L 07/14/17 02:00 98.0 F 110 H 18 113/62 98 07/14/17 01:45 110 H 18 07/13/17 21:45 117 H 18 07/13/17 21:43 98.0 F 117 H 18 109/57 99 07/13/17 18:40 107 H 20 102/58 97 07/13/17 17:21 101 H 16 101/63 99 Intake and Output 07/14/17 07/14/17 07/14/17 06:59 14:59 22:59 Output Total 450 Balance -450 Output: Urine 450 Other: Voiding Method Urinal Weight 89.8 kg PHYSICAL EXAMINATION: GENERAL: The patient is alert and oriented x3, not in any acute distress. obese HEENT: Pupils are round and equally reacting to light. EOMI. No scleral icterus. No conjunctival pallor. Normocephalic, atraumatic. No pharyngeal erythema. No thyromegaly. CARDIOVASCULAR: S1 and S2 present. No murmurs, rubs, or gallops. PULMONARY: Chest is clear to auscultation, no wheezing or crackles. ABDOMEN: Soft, nontender, nondistended, normoactive bowel sounds. No palpable organomegaly. MUSCULOSKELETAL: No joint swelling or deformity. EXTREMITIES: No cyanosis, clubbing, or pedal edema. NEUROLOGICAL: Gross neurological examination did not reveal any focal deficits. SKIN: No rashes. Results CBC & Chem 7: 07/13/17 17:55 07/14/17 03:44 Labs: Abnormal Lab Results - Last 24 Hours (Table) 07/13/17 07/13/17 07/13/17 Range/Units 16:10 17:55 17:55 MCV 109.0 H (80.0-100.0) fL MCH 36.7 H (25.0-35.0) pg APTT 18.0 L (22.0-30.0) sec Potassium (3.5-5.1) mmol/L Chloride (98-107) mmol/L Carbon Dioxide (22-30) mmol/L Glucose (74-99) mg/dL AST (17-59) U/L ALT (21-72) U/L CK-MB (CK-2) 3.5 H* (0.0-2.4) ng/mL Triglycerides (<150) mg/dL 07/13/17 07/13/17 07/14/17 Range/Units 17:55 21:54 03:44 MCV (80.0-100.0) fL MCH (25.0-35.0) pg APTT (22.0-30.0) sec Potassium 2.8 L* (3.5-5.1) mmol/L Chloride 95 L (98-107) mmol/L Carbon Dioxide (22-30) mmol/L Glucose (74-99) mg/dL AST 142 H (17-59) U/L ALT 255 H (21-72) U/L CK-MB (CK-2) 2.6 H* 2.6 H* (0.0-2.4) ng/mL Triglycerides (<150) mg/dL 07/14/17 07/14/17 Range/Units 03:44 03:44 MCV (80.0-100.0) fL MCH (25.0-35.0) pg APTT (22.0-30.0) sec Potassium 3.1 L (3.5-5.1) mmol/L Chloride 96 L (98-107) mmol/L Carbon Dioxide 31 H (22-30) mmol/L Glucose 106 H (74-99) mg/dL AST 125 H (17-59) U/L ALT 220 H (21-72) U/L CK-MB (CK-2) (0.0-2.4) ng/mL Triglycerides 261 H (<150) mg/dL Thrombosis Risk Factor Assmnt - Choose All That Apply Any of the Below Risk Factors Present?: Yes Each Factor Represents 1 point: Abnormal pulmonary function (COPD), Obesity ( BMI >25) Other Risk Factors: Yes Each Risk Factor Represents 2 Points: Age 61-74 years Other congenital or acquired thrombophilia - If yes, enter type in comment: No Thrombosis Risk Factor Assessment Total Risk Factor Score: 4 Thrombosis Risk Factor Assessment Level: Moderate Risk Assessment and Plan Plan: #1 chest pain: Rule out acute coronary syndromes patient underwent the stress test if cleared by cardiology patient will be discharged today stresses appears to be negative. #2 possibility of gastritis contributing to his chest pain, patient may have alcoholic gastritis because of which and nonsteroidal anti-inflammatory medications will be discontinued and patient was started on Prilosec. Alcohol cessation counseling was provided #3 alcohol abuse and dependence #4 COPD without any acute exacerbation patient was discharged on inhalational steroids and albuterol and ipratropium. #5 acute alcoholic hepatitis expected to improve with cessation of alcohol #6 macrocytosis due to alcohol abuse #7 hypertension
--- NOTE | 2017-07-14 15:49 | P.DS ---
Providers Date of admission: 07/13/17 18:43 Attending physician: Stella Riley Consults: 07/13/17 18:43 Consult Physician Urgent Consulting Provider: [facility] Consult Reason/Comments: chest pain Do you want consulting provider notified?: Yes Hospital Course: please refer to my history of present illness Plan - Discharge Summary New Discharge Prescriptions: New Omeprazole [PriLOSEC] 40 mg PO AC-BRKFST #14 capsule.dr Discontinued Hydrochlorothiazide [Hydrodiuril] 25 mg PO DAILY #30 tab Ibuprofen [Advil] 400 mg PO BID PRN PRN Reason: Pain No Action Budesonide-Formot 160-4.5 Mcg [Symbicort 160-4.5 Mcg Inhaler] 2 puff INHALATION RT-BID #0 puff Diltiazem Cd [Cardizem CD] 180 mg PO DAILY #24 cap.er.24h ALPRAZolam [Xanax] 1 mg PO BID #10 Methadone [Dolophine] 30 mg PO BID Ziprasidone [Geodon] 20 mg PO DAILY Clotrimazole Cream [Lotrimin Cream] 1 applic TOPICAL BID #1 tube Ipratropium-Albuterol Nebulize [Duoneb 0.5 mg-3 mg/3 ml Soln] 3 ml INHALATION RT-QID #120 neb Discharge Medication List ALPRAZolam [Xanax] 1 mg PO BID #10 05/11/17 [Rx] Budesonide-Formot 160-4.5 Mcg [Symbicort 160-4.5 Mcg Inhaler] 2 puff INHALATION RT-BID #0 puff 05/11/17 [Rx] Diltiazem Cd [Cardizem CD] 180 mg PO DAILY #24 cap.er.24h 05/11/17 [Rx] Methadone [Dolophine] 30 mg PO BID 05/21/17 [History] Ziprasidone [Geodon] 20 mg PO DAILY 06/12/17 [History] Clotrimazole Cream [Lotrimin Cream] 1 applic TOPICAL BID #1 tube 06/14/17 [Rx] Ipratropium-Albuterol Nebulize [Duoneb 0.5 mg-3 mg/3 ml Soln] 3 ml INHALATION RT -QID #120 neb 06/14/17 [Rx] Omeprazole [PriLOSEC] 40 mg PO AC-BRKFST #14 capsule. 07/14/17 [Rx] Follow up Appointment(s)/Referral(s): [facility], [NON-STAFF] - 1 Week Durga Garza MD [STAFF PHYSICIAN] - 07/17/17 11:00 am Patient Instructions/Handouts: Hypokalemia (DC) Discharge Disposition: HOME SELF-CARE
== END 2017-07-14 16:18 | disposition home health service (06) | DRG 203 ==
LOC: EC 15:01 → 6SEL 18:43
PROVIDERS: ADMIT Hospitalist; ATTEND Hospitalist
DX: R07.9 Chest pain, unspecified (principal); I50.32 Chronic diastolic (congestive) heart failure; I11.0 Hypertensive heart disease with heart failure; K70.10 Alcoholic hepatitis without ascites; D75.89 Other specified diseases of blood and blood-forming organs; E87.6 Hypokalemia; F10.229 Alcohol dependence with intoxication, unspecified; F41.9 Anxiety disorder, unspecified; J44.9 Chronic obstructive pulmonary disease, unspecified; E66.9 Obesity, unspecified; K29.20 Alcoholic gastritis without bleeding; Z68.29 Body mass index [BMI] 29.0-29.9, adult; Z79.51 Long term (current) use of inhaled steroids; Z79.899 Other long term (current) drug therapy; Z87.891 Personal history of nicotine dependence; Z82.49 Family history of ischemic heart disease and other diseases of the circulatory system
CPT/HCPCS: 36415; 71020; 78452; 80048; 80053; 80061; 80320; 82550; 82553; 83735; 83880; 84450; 84460; 84484; 85025; 85610; 85730; 93005; 93017; 94640; 96365; 96366; 99285

== ENCOUNTER 2017-08-08 11:11 | Observation (INO) | payer OTHER ==
--- NOTE | 2017-08-08 11:36 | ED ---
General Adult HPI - General Chief complaint: Chest Pain Stated complaint: Chest Pain Time Seen by Provider: 08/08/17 11:18 Source: patient, EMS, RN notes reviewed, old records reviewed Mode of arrival: EMS Limitations: no limitations - History of Present Illness Initial comments: This is a 62-year-old male to the ER for evaluation. Patient is asked smoking history history of asthma history of heart failure history of chest pain. Patient ran out of medications recently for his blood pressure. Patient states he's had chest pain is adult overnight. Patient is brought in by EMS EMS to give patient nitro did help with pain. No fevers, congestion. Patient does admit to shortness of breath but that is baseline from his asthma. No travel history no sick contacts. Pain is sharp and heavy in character, not ripping. No radiation - Related Data Home Medications Medication Instructions Recorded Confirmed Methadone [Dolophine] 30 mg PO BID 05/21/17 07/13/17 Hydrochlorothiazide [Hydrodiuril] 25 mg PO DAILY 08/08/17 08/08/17 Ibuprofen [Advil] 200 mg PO Q8HR PRN 08/08/17 08/08/17 Previous Rx's Medication Instructions Recorded ALPRAZolam [Xanax] 1 mg PO BID #10 05/11/17 Budesonide-Formot 160-4.5 Mcg 2 puff INHALATION RT-BID #0 puff 05/11/17 [Symbicort 160-4.5 Mcg Inhaler] Diltiazem Cd [Cardizem CD] 180 mg PO DAILY #24 cap.er.24h 05/11/17 Allergies Allergy/AdvReac Type Severity Reaction Status Date / Time [place] Feces Allergy Unknown Uncoded 07/14/17 00:45 Review of Systems ROS Statement: Those systems with pertinent positive or pertinent negative responses have been documented in the HPI. ROS Other: All systems not noted in ROS Statement are negative. Past Medical History Past Medical History: Asthma, Heart Failure, COPD, Hypertension, Liver Disease, Pneumonia Additional Past Medical History / Comment(s): COPD, recent hospitalization with fall and a small right-sided pneumothorax, traumatic seventh through ninth nondisplaced rib fractures, alcoholism, previous history of delirium tremens, liver disease/alcoholic in nature with abnormal LFTs, hypertension, CHF with diastolic dysfunction History of Any Multi-Drug Resistant Organisms: None Reported Past Surgical History: Orthopedic Surgery Additional Past Surgical History / Comment(s): neck fracture, Past Anesthesia/Blood Transfusion Reactions: No Reported Reaction Past Psychological History: Anxiety Smoking Status: Former smoker Past Alcohol Use History: Occasional Past Drug Use History: None Reported - Past Family History Father Family Medical History: Congestive Heart Failure (CHF), Coronary Artery Disease (CAD), Hypertension Mother Family Medical History: Cancer, Hypertension Additional Family Medical History / Comment(s): Melanoma on nose. General Exam Limitations: no limitations General appearance: alert, in no apparent distress Head exam: Present: atraumatic, normocephalic, normal inspection Eye exam: Present: normal appearance, PERRL, EOMI. Absent: scleral icterus, conjunctival injection, periorbital swelling ENT exam: Present: normal exam, mucous membranes moist Neck exam: Present: normal inspection. Absent: tenderness, meningismus, lymphadenopathy Respiratory exam: Present: normal lung sounds bilaterally. Absent: respiratory distress, wheezes, rales, rhonchi, stridor Cardiovascular Exam: Present: regular rate, normal rhythm, normal heart sounds. Absent: systolic murmur, diastolic murmur, rubs, gallop, clicks GI/Abdominal exam: Present: soft, normal bowel sounds. Absent: distended, tenderness, guarding, rebound, rigid Extremities exam: Present: normal inspection, full ROM, normal capillary refill. Absent: tenderness, pedal edema, joint swelling, calf tenderness Back exam: Present: normal inspection Neurological exam: Present: alert, oriented X3, CN II-XII intact Psychiatric exam: Present: normal affect, normal mood Skin exam: Present: warm, dry, intact, normal color. Absent: rash Course Vital Signs 08/08/17 11:12 Temperature 98 F Pulse Rate 73 Respiratory 16 Rate Blood Pressure 137/83 O2 Sat by Pulse 97 Oximetry - Reevaluation(s) Reevaluation #1: 08/08/17 12:30 At this point patient still with chest pain EKG Findings - EKG Comments: EKG Findings:: EKG shows sinus rhythm rate of 75, pO2 100, QRS 76, QTc 424 Medical Decision Making - Medical Decision Making 62 male to ER for evaluation. Patient presents today regards to chest pain. Patient has history of chest pain history of heart failure. Patient is still complaining of severe anterior chest pain. No significant shortness of breath. Patient does suffer from history of asthma that he states his sugars with a does have is normal. Patient will be admitted for cardiac observation - Lab Data Lab Results 08/08/17 Range/Units 11:22 PT 10.6 (9.0-12.0) sec INR 1.1 (<1.2) APTT 20.7 L (22.0-30.0) sec - Radiology Data Radiology results: report reviewed (Chest x-ray is negative for acute disease), image reviewed Critical Care Time Critical Care Time: Yes Total Critical Care Time: 31 Disposition Clinical Impression: COPD exacerbation, Chest pain Disposition: ADMITTED IP TO THIS [facility] Condition: Good Referrals: Durga Garza MD [Primary Care Provider] - 1-2 days
--- NOTE | 2017-08-08 11:52 | XR ---
EXAMINATION TYPE: XR chest 2V DATE OF EXAM: 08/08/2017 HISTORY: Chest Pain. REFERENCE: Previous study dated 07/13/2017. FINDINGS: Heart size is upper limits of normal. There is some scarring in the left upper lobe. The romina ngs are otherwise clear. Pleural spaces are clear. There are healed right-sided rib fractures. IMPRESSION: 1. BORDERLINE CARDIOMEGALY. 2. NO ACUTE INTRATHORACIC ABNORMALITY.
[2017-08-08 12:01] LABS: INR 1.1 (<1.2); Prothrombin Time 10.6 sec (9.0-12.0)
[2017-08-08 12:07] LABS: Partial Thromboplastin Time 20.7 sec (22.0-30.0)
[2017-08-08] MEDS ORDERED: NITROGLYCERIN SL TABS 0.4 MG TAB SUBLINGUAL PRN (12:21)
[2017-08-08] MEDS ORDERED: HEPARIN SODIUM,PORCINE 5,000 UNIT/ML 1 ML VIAL IV PRN (12:21)
[2017-08-08] MEDS ORDERED: MORPHINE SULFATE 10 MG/ML SYRINGE IV PRN (12:21)
[2017-08-08] MEDS ORDERED: HEPARIN SODIUM,PORCINE 5,000 UNIT/ML 1 ML VIAL IV ONE (12:21)
[2017-08-08] MEDS ORDERED: ASPIRIN 81 MG PO STA (12:21)
[2017-08-08] MEDS ORDERED: HEPARIN SODIUM,PORCINE/D5W PMX 25,000 UNIT in DEXTROSE/WATER 1 500ML.BAG IV SCH (12:30)
[2017-08-08] MEDS ORDERED: IPRATROPIUM-ALBUTEROL 3 ML NEB INHALATION PRN (12:32)
[2017-08-08] MEDS ORDERED: IPRATROPIUM-ALBUTEROL 3 ML NEB INHALATION STA (12:32)
[2017-08-08 12:33] LABS: Basophils # (A) 0.1 k/uL (0-0.2); Basophils % (A) 1 %; CH 35.5; CHCM 32.8; Eosinophils # (A) 0.2 k/uL (0-0.7); Eosinophils % (A) 4 %; HCT 49.7 % (39.0-53.0); HDW 2.62; HGB 16.3 gm/dL (13.0-17.5); Luc # (Auto) 0.14; Luc % (Auto) 2; Lymphocytes # (A) 2.4 k/uL (1.0-4.8); Lymphocytes % (A) 35 %; MCH 35.7 pg (25.0-35.0); MCHC 32.8 g/dL (31.0-37.0); Macrocytosis Marked; Mean Platelet Volume 8.3; Monocytes # (A) 0.5 k/uL (0-1.0); Monocytes % (A) 7 %; Neutrophils # (A) 3.4 k/uL (1.3-7.7); Neutrophils % (A) 50 %; RBC 4.56 m/uL (4.30-5.90); RDW 15.3 % (11.5-15.5); WBC 6.7 k/uL (3.8-10.6); WBC (Perox) 6.29
[2017-08-08 12:42] LABS: Manual Review Performed
[2017-08-08 13:20] LABS: Creatine Kinase 122 U/L (55-170)
[2017-08-08 13:20] LABS: ALT 164 U/L (21-72); AST 75 U/L (17-59); Alkaline Phosphatase 88 U/L (38-126); Anion Gap 12 mmol/L; Blood Urea Nitrogen 8 mg/dL (9-20); Calcium 9.4 mg/dL (8.4-10.2); Carbon Dioxide 20 mmol/L (22-30); Chloride 107 mmol/L (98-107); Glucose 94 mg/dL (74-99); Magnesium 1.7 mg/dL (1.6-2.3); Non-African American GFR(MDRD) >60 (>60 ml/min/1.73 sqM); Sodium 139 mmol/L (137-145); Total Bilirubin 0.8 mg/dL (0.2-1.3); Total Protein 7.7 g/dL (6.3-8.2)
[2017-08-08 13:21] LABS: Potassium 4.1 mmol/L (3.5-5.1)
[2017-08-08 13:32] LABS: Troponin I <0.012 ng/mL (0.000-0.034)
[2017-08-08 13:38] LABS: Creatine Kinase MB 3.1 ng/mL (0.0-2.4)
[2017-08-08 14:59] VITALS: BMI 27.2
[2017-08-08 15:00] VITALS: RESP 18
--- NOTE | 2017-08-08 16:30 | P.DS ---
Providers Date of admission: 08/08/17 12:21 Attending physician: Stella Riley Consults: 08/08/17 12:21 Consult Physician Urgent Consulting Provider: Emeterio Moore Consult Reason/Comments: cp Do you want consulting provider notified?: Yes Primary care physician: Durga Garza Hospital Course: Please refer to HPI Patient Condition at Discharge: Good Plan - Discharge Summary Discharge Rx Participant: No New Discharge Prescriptions: New Ipratropium-Albuterol Nebulize [Duoneb 0.5 mg-3 mg/3 ml Soln] 3 ml INHALATION RT-QID PRN #300 ampul.neb PRN Reason: Shortness Of Breath Or Wheezing Omeprazole [PriLOSEC] 40 mg PO AC-BRKFST #14 capsule.dr Continue Budesonide-Formot 160-4.5 Mcg [Symbicort 160-4.5 Mcg Inhaler] 2 puff INHALATION RT-BID #1 inhaler Diltiazem Cd [Cardizem CD] 180 mg PO DAILY #24 cap.er.24h Discontinued ALPRAZolam [Xanax] 1 mg PO BID #10 Methadone [Dolophine] 30 mg PO BID Ibuprofen [Advil] 200 mg PO Q8HR PRN PRN Reason: Pain Hydrochlorothiazide [Hydrodiuril] 25 mg PO DAILY Discharge Medication List Budesonide-Formot 160-4.5 Mcg [Symbicort 160-4.5 Mcg Inhaler] 2 puff INHALATION RT-BID #1 inhaler 08/08/17 [Rx] Diltiazem Cd [Cardizem CD] 180 mg PO DAILY #24 cap.er.24h 08/08/17 [Rx] Ipratropium-Albuterol Nebulize [Duoneb 0.5 mg-3 mg/3 ml Soln] 3 ml INHALATION RT -QID PRN #300 ampul.neb 08/08/17 [Rx] Omeprazole [PriLOSEC] 40 mg PO AC-BRKFST #14 capsule. 08/08/17 [Rx] Follow up Appointment(s)/Referral(s): Durga Garza MD [Primary Care Provider] - 3 Days Discharge Disposition: HOME SELF-CARE
--- NOTE | 2017-08-08 16:30 | P.HPIM ---
History of Present Illness 62-year-old male with history of COPD and alcohol abuse history has not been drinking for about a week came in with complaints of chest pain in the epigastric area and as well as the retrosternal area which is reproducible chest pain, muscular skeletal nature without any lightheadedness, diaphoresis constant lasted for few hours not associated with fever, chills, cough, runny nose complaining of some shortness of breath as well although patient has good air entry into bilateral lung drake no wheezing at this point of time if patient is saturating well, we will obtain a d-dimer and if second set of troponin is negative patient will be discharged. Patient had a recent stress test earlier this month which was negative for any inducible ischemia. Patient does not have any significant ST-T wave changes on the EKG. Patient apparently ran out of his medications, I do not believe patient will need his that occur thiazide as his blood pressures normal without using any of his medications for last 3-4 days and his nonnarcotics will be filled, I do not expect any withdrawal from opiates since he ran out of these medications for about 3-4 days and patient will follow-up with his PCP Dr. Garza as soon as possible sometime next week patient is not in COD exacerbation at this time. Patient's chest pain completely resolved but still has some musculoskeletal pain upon palpation of the chest. Patient was treated for all call he gastritis during his previous hospitalization and I still have concern that she he may have gastritis because of which I'll give him 14 more days of Prilosec Review of Systems REVIEW OF SYSTEMS: CONSTITUTIONAL: No fever, no malaise, no fatigue. HEENT: No recent visual problems or hearing problems. Denied any sore throat. CARDIOVASCULAR: No orthopnea, PND, no palpitations, no syncope. PULMONARY: no cough, no hemoptysis. GASTROINTESTINAL: No diarrhea, no nausea, no vomiting, no abdominal pain. Normoactive bowel sounds. NEUROLOGICAL: No headaches, no weakness, no numbness. HEMATOLOGICAL: Denies any bleeding or petechiae. GENITOURINARY: Denies any burning micturition, frequency, or urgency. MUSCULOSKELETAL/RHEUMATOLOGICAL: Denies any joint pain, swelling, or any muscle pain. ENDOCRINE: Denies any polyuria or polydipsia. The rest of the 14-point review of systems is negative. Past Medical History Past Medical History: Asthma, Heart Failure, COPD, Hypertension, Liver Disease, Pneumonia Additional Past Medical History / Comment(s): COPD, recent hospitalization with fall and a small right-sided pneumothorax, traumatic seventh through ninth nondisplaced rib fractures, alcoholism, previous history of delirium tremens, liver disease/alcoholic in nature with abnormal LFTs, hypertension, CHF with diastolic dysfunction History of Any Multi-Drug Resistant Organisms: None Reported Past Surgical History: Orthopedic Surgery Additional Past Surgical History / Comment(s): neck fracture, Past Anesthesia/Blood Transfusion Reactions: No Reported Reaction Past Psychological History: Anxiety Smoking Status: Former smoker Past Alcohol Use History: Occasional Past Drug Use History: None Reported Additional Drug Use History / Comment(s): pt denies drinking everyday - Past Family History Father Family Medical History: Congestive Heart Failure (CHF), Coronary Artery Disease (CAD), Hypertension Mother Family Medical History: Cancer, Hypertension Additional Family Medical History / Comment(s): Melanoma on nose. Medications and Allergies Home Medications Medication Instructions Recorded Confirmed Type Budesonide-Formot 160-4.5 Mcg 2 puff INHALATION RT-BID #1 inhaler 08/08/17 Rx [Symbicort 160-4.5 Mcg Inhaler] Diltiazem Cd [Cardizem CD] 180 mg PO DAILY #24 cap.er.24h 08/08/17 Rx Ipratropium-Albuterol Nebulize 3 ml INHALATION RT-QID PRN #300 08/08/17 Rx [Duoneb 0.5 mg-3 mg/3 ml Soln] ampul.neb Allergies Allergy/AdvReac Type Severity Reaction Status Date / Time [place] Feces Allergy Unknown Uncoded 07/14/17 00:45 Physical Exam Vitals: Vital Signs Temp Pulse Pulse Resp BP BP Pulse Ox 08/08/17 14:59 97.8 F 69 18 134/93 99 08/08/17 14:35 98.3 F 100 16 165/89 97 08/08/17 14:00 98 F 96 18 133/90 95 08/08/17 13:02 96 16 08/08/17 13:00 98 16 113/70 96 08/08/17 12:55 96 16 08/08/17 12:16 105 H 18 151/98 97 08/08/17 11:12 98 F 73 16 137/83 97 Intake and Output 10/08/08/17 08/08/17 06:59 14:59 22:59 Other: Weight 89.9 kg Patient Weight 08/09/17 06:59 Weight 89.9 kg PHYSICAL EXAMINATION: GENERAL: The patient is alert and oriented x3, not in any acute distress. Well developed, well nourished. HEENT: Pupils are round and equally reacting to light. EOMI. No scleral icterus. No conjunctival pallor. Normocephalic, atraumatic. No pharyngeal erythema. No thyromegaly. CARDIOVASCULAR: S1 and S2 present. No murmurs, rubs, or gallops. PULMONARY: Chest is clear to auscultation, no wheezing or crackles. Patient does have reproducible chest pain ABDOMEN: Soft, nontender, nondistended, normoactive bowel sounds. No palpable organomegaly. MUSCULOSKELETAL: No joint swelling or deformity. EXTREMITIES: No cyanosis, clubbing, or pedal edema. NEUROLOGICAL: Gross neurological examination did not reveal any focal deficits. SKIN: No rashes. Results CBC & Chem 7: 08/08/17 12:13 08/08/17 12:13 Labs: Abnormal Lab Results - Last 24 Hours (Table) 08/08/17 08/08/17 08/08/17 Range/Units 11:22 12:13 12:13 MCV 109.0 H (80.0-100.0) fL MCH 35.7 H (25.0-35.0) pg APTT 20.7 L (22.0-30.0) sec Carbon Dioxide 20 L (22-30) mmol/L BUN 8 L (9-20) mg/dL AST 75 H (17-59) U/L ALT 164 H (21-72) U/L CK-MB (CK-2) (0.0-2.4) ng/mL 08/08/17 Range/Units 12:45 MCV (80.0-100.0) fL MCH (25.0-35.0) pg APTT (22.0-30.0) sec Carbon Dioxide (22-30) mmol/L BUN (9-20) mg/dL AST (17-59) U/L ALT (21-72) U/L CK-MB (CK-2) 3.1 H* (0.0-2.4) ng/mL Thrombosis Risk Factor Assmnt - Choose All That Apply Any of the Below Risk Factors Present?: Yes Each Factor Represents 1 point: Obesity (BMI >25) Other Risk Factors: Yes Each Risk Factor Represents 2 Points: Age 61-74 years Thrombosis Risk Factor Assessment Total Risk Factor Score: 3 Thrombosis Risk Factor Assessment Level: Moderate Risk Assessment and Plan Plan: #1 chest pain: We will rule out acute coronary syndromes as well as coronary embolism. We will obtain a d-dimer if that is positive obtain CAT scan of the chest to rule out pulmonary embolism once we ruled out patient can be discharged after the second troponin patient appears to have musculoskeletal chest pain had a recent stress test earlier this month. #2 COPD without any acute exacerbation. #3 continued nicotine use and alcohol use excessive counseling was provided regarding this. #4 hypertension patient's Cardizem will be continued as do not believe hydro chloro thiazide is necessary my concern is reflux tachycardia without continue additional Cardizem because of which are good and continue that medication. #5 noncompliance with medications counseling was provided
[2017-08-08 19:37] VITALS: BP 127/68; PULSE 98; TEMP 98.1
[2017-08-08 19:53] LABS: Creatine Kinase 105 U/L (55-170)
[2017-08-08 20:05] LABS: Troponin I <0.012 ng/mL (0.000-0.034)
[2017-08-08 20:06] LABS: Creatine Kinase MB 2.7 ng/mL (0.0-2.4)
[2017-08-09] MEDS ORDERED: ASPIRIN 325 MG TAB PO SCH (09:00)
[2017-08-09] MEDS ORDERED: ATORVASTATIN 80 MG TAB PO SCH (09:00)
== END 2017-08-08 20:45 | disposition home or self-care (01) ==
LOC: EC 11:11 → 3OBS 12:21
PROVIDERS: ADMIT Hospitalist; ATTEND Hospitalist
DX: R07.89 Other chest pain (principal); R07.2 Precordial pain; R10.13 Epigastric pain; R06.02 Shortness of breath; I11.0 Hypertensive heart disease with heart failure; I50.32 Chronic diastolic (congestive) heart failure; Z91.14 Patient's other noncompliance with medication regimen; T50.2X6A Underdosing of carbonic-anhydrase inhibitors, benzothiadiazides and other diuretics, initial encounter; E66.9 Obesity, unspecified; Z68.28 Body mass index [BMI] 28.0-28.9, adult; F41.9 Anxiety disorder, unspecified; F17.200 Nicotine dependence, unspecified, uncomplicated; F10.20 Alcohol dependence, uncomplicated; J44.9 Chronic obstructive pulmonary disease, unspecified; Z79.899 Other long term (current) drug therapy; Z91.048 Other nonmedicinal substance allergy status; Z79.51 Long term (current) use of inhaled steroids; Z86.711 Personal history of pulmonary embolism; F11.99 Opioid use, unspecified with unspecified opioid-induced disorder; Z87.01 Personal history of pneumonia (recurrent)
CPT/HCPCS: 96375 ×2; 96376 ×2; 96365 ×2; 99291; 36415; 94640; 93005; 85379; 83880; 80053; 82550; 82553; 83690; 83735; 84484; 85025; 85610; 85730; 71020; G0378; J1644 ×2; J2270; 96374

== ENCOUNTER 2017-12-12 21:54 | Inpatient (IN) | payer OTHER ==
[2017-12-12] MEDS ORDERED: ALBUTEROL NEBULIZED 2.5 MG/3 ML INHALATION STA (22:23)
[2017-12-12] MEDS ORDERED: LEVOFLOXACIN 750 MG TAB PO STA (22:23)
[2017-12-12] MEDS ORDERED: methylPREDNISolone SOD SUCCI 125 MG/2 ML VIAL IV STA (22:23)
[2017-12-12] MEDS ORDERED: SODIUM CHLORIDE 0.9% 1,000 ML IV STA (22:23)
[2017-12-12] MEDS ORDERED: SODIUM CHLORIDE 0.9% 500 ML IV STA (22:23)
[2017-12-12] MEDS ORDERED: IPRATROPIUM 0.5 MG/2.5 ML NEBU INHALATION STA (22:23)
[2017-12-12 22:40] LABS: HCT 50.4 % (39.0-53.0); HGB 16.7 gm/dL (13.0-17.5); MCH 34.9 pg (25.0-35.0); MCHC 33.2 g/dL (31.0-37.0); MCV 105.3 fL (80.0-100.0); Macrocytosis Moderate; Mean Platelet Volume 7.1; Platelet Count 235 k/uL (150-450); RBC 4.78 m/uL (4.30-5.90); RDW 15.6 % (11.5-15.5); WBC 7.1 k/uL (3.8-10.6)
[2017-12-12 22:51] LABS: INR 1.1 (<1.2); Prothrombin Time 10.6 sec (9.0-12.0)
--- NOTE | 2017-12-12 22:53 | XR ---
EXAMINATION TYPE: XR chest 2V DATE OF EXAM: 12/12/2017 COMPARISON: 08/08/2017 HISTORY: Difficulty breathing TECHNIQUE: Frontal and lateral views of the chest are obtained. FINDINGS: There is no heart failure nor confluent pneumonic infiltrate. There are some coarse lung m arkings at the left posterior lung base. There is no pleural effusion. There are old right-sided post erior rib fractures. Thoracic spine is intact. IMPRESSION: No active cardiopulmonary disease. Mild fibrotic change at the left posterior lung base. No change compared to old exam.
[2017-12-12 22:54] LABS: ALT 55 U/L (21-72); AST 39 U/L (17-59); Alkaline Phosphatase 50 U/L (38-126); Anion Gap 16 mmol/L; Blood Urea Nitrogen 8 mg/dL (9-20); Calcium 9.3 mg/dL (8.4-10.2); Carbon Dioxide 21 mmol/L (22-30); Chloride 108 mmol/L (98-107); Glucose 114 mg/dL (74-99); Potassium 3.7 mmol/L (3.5-5.1); Sodium 145 mmol/L (137-145); Total Bilirubin 0.5 mg/dL (0.2-1.3); Total Protein 7.3 g/dL (6.3-8.2)
[2017-12-12 23:03] LABS: Creatine Kinase 196 U/L (55-170)
--- NOTE | 2017-12-12 23:08 | ED ---
SOB HPI - General Chief Complaint: Shortness of Breath Stated Complaint: KRISHNA Time Seen by Provider: 12/12/17 22:04 Source: patient Mode of arrival: ambulatory Limitations: no limitations - History of Present Illness Initial Comments: [age]rem[age] years old gentleman comes in with shortness of breath and chest pain is ongoing for 2 days he said he has been drinking quite a bit today , he added he been drinking a lot and also has a history of coronary artery disease and COPD. He dry he denies any trauma he denies any fall no headaches no neck injury has chest pain for 2 days shortness of breath no abdominal pain no frequency urgency dysuria no symptoms of TIA or CVA - Related Data Previous Rx's Medication Instructions Recorded Budesonide-Formot 160-4.5 Mcg 2 puff INHALATION RT-BID #1 inhaler 08/08/17 [Symbicort 160-4.5 Mcg Inhaler] Diltiazem Cd [Cardizem CD] 180 mg PO DAILY #24 cap.er.24h 08/08/17 Ipratropium-Albuterol Nebulize 3 ml INHALATION RT-QID PRN #300 08/08/17 [Duoneb 0.5 mg-3 mg/3 ml Soln] ampul.neb Omeprazole [PriLOSEC] 40 mg PO AC-BRKFST #14 capsule. 08/08/17 Allergies Allergy/AdvReac Type Severity Reaction Status Date / Time [place] Feces Allergy Unknown Uncoded 12/12/17 21:55 Review of Systems ROS Statement: Those systems with pertinent positive or pertinent negative responses have been documented in the HPI. ROS Other: All systems not noted in ROS Statement are negative. Past Medical History Past Medical History: Asthma, Heart Failure, COPD, Hypertension, Liver Disease, Pneumonia Additional Past Medical History / Comment(s): COPD, recent hospitalization with fall and a small right-sided pneumothorax, traumatic seventh through ninth nondisplaced rib fractures, alcoholism, previous history of delirium tremens, liver disease/alcoholic in nature with abnormal LFTs, hypertension, CHF with diastolic dysfunction History of Any Multi-Drug Resistant Organisms: MRSA Date of last positivie culture/infection: 2016 Past Surgical History: Orthopedic Surgery Additional Past Surgical History / Comment(s): neck fracture, Past Anesthesia/Blood Transfusion Reactions: No Reported Reaction Past Psychological History: Anxiety Smoking Status: Former smoker Past Alcohol Use History: Heavy, Occasional Past Drug Use History: None Reported - Past Family History Father Family Medical History: Congestive Heart Failure (CHF), Coronary Artery Disease (CAD), Hypertension Mother Family Medical History: Cancer, Hypertension Additional Family Medical History / Comment(s): Melanoma on nose. General Exam - General Exam Comments Initial Comments: General: The patient is awake and alert, in no distress, and does not appear acutely ill. He is intoxicated but pleasant and cooperative Skin: Skin is warm and dry and no rashes or lesions are noted. Eye: Pupils are equal, round and reactive to light, extra-ocular movements are intact; there is normal conjunctiva bilaterally. Ears, nose, mouth and throat: There are moist mucous membranes and no oral lesions. Neck: The neck is supple, there is no tenderness Cardiovascular: There is a regular rate and rhythm. No murmur, rub or gallop is appreciated. Respiratory: To auscultation bilateral, exam consistent with the moderate COPD Gastrointestinal: Soft, non-distended, non-tender abdomen without masses or organomegaly noted. There is no rebound or guarding present. Bowel sounds are unremarkable. Back: There is no tenderness to palpation in the midline. There is no obvious deformity. Musculoskeletal: Normal ROM, no tenderness, There is no pedal edema. There is no calf tenderness or swelling. No cords were appreciated. Neurological: CN II-XII intact, Cranial nerves III through XII are intact. There are no obvious motor or sensory deficits. Coordination appears grossly intact. Speech is normal. Psychiatric: Cooperative, appropriate mood & affect, normal judgment. He denies any suicidal or homicidal ideation Limitations: no limitations Course Vital Signs 12/12/17 12/12/17 12/12/17 21:55 22:01 22:40 Temperature 97.9 F Pulse Rate 96 76 Pulse Rate [ 94 Substance Addiction Coordinator ] Respiratory 18 Rate Blood Pressure 127/74 O2 Sat by Pulse 89 L Oximetry 12/12/17 12/12/17 22:51 23:15 Temperature Pulse Rate 78 95 Pulse Rate [ Substance Addiction Coordinator ] Respiratory 18 Rate Blood Pressure 111/65 O2 Sat by Pulse 98 Oximetry EKG is a normal sinus rhythm ventricular rate is 94 IN interval is 204 QRS duration is 76 QT/QTc is 348/435 noticed inverted T-wave in lead 1 and [address] noticed slight ST depression in V5 and V6 Patient is reassessed at term 20 and it CBC, INR, compressive metabolic panel are unremarkable CK is 196 chest x-ray is unremarkable troponin is pending , Troponin is negative, he has a chest pain for 2 days being negative that rules out any ischemic event ongoing right now, will refer him to [facility] for further outpatient evaluation Medical Decision Making - Lab Data Result diagrams: 12/12/17 22:30 12/12/17 22:30 Lab Results 12/12/17 12/12/17 12/12/17 Range/Units 22:30 22:30 22:30 WBC 7.1 (3.8-10.6) k/uL RBC 4.78 (4.30-5.90) m/uL Hgb 16.7 (13.0-17.5) gm/dL Hct 50.4 (39.0-53.0) % MCV 105.3 H (80.0-100.0) fL MCH 34.9 (25.0-35.0) pg MCHC 33.2 (31.0-37.0) g/dL RDW 15.6 H (11.5-15.5) % Plt Count 235 (150-450) k/uL Neutrophils % (Manual) 34 % Lymphocytes % (Manual) 49 % Monocytes % (Manual) 6 % Eosinophils % (Manual) 10 % Basophils % (Manual) 1 % Neutrophils # (Manual) 2.41 (1.3-7.7) k/uL Lymphocytes # (Manual) 3.48 (1.0-4.8) k/uL Monocytes # (Manual) 0.43 (0-1.0) k/uL Eosinophils # (Manual) 0.71 H (0-0.7) k/uL Basophils # (Manual) 0.07 (0-0.2) k/uL Nucleated RBCs 0 (0-0) /100 WBC Manual Slide Review Performed Reactive Lymphocytes Present Macrocytosis Moderate PT (9.0-12.0) sec INR (<1.2) APTT (22.0-30.0) sec Sodium 145 (137-145) mmol/L Potassium 3.7 (3.5-5.1) mmol/L Chloride 108 H (98-107) mmol/L Carbon Dioxide 21 L (22-30) mmol/L Anion Gap 16 mmol/L BUN 8 L (9-20) mg/dL Creatinine 0.80 (0.66-1.25) mg/dL Est GFR (MDRD) Af Amer >60 (>60 ml/min/1.73 sqM) Est GFR (MDRD) Non-Af >60 (>60 ml/min/1.73 sqM) Glucose 114 H (74-99) mg/dL Calcium 9.3 (8.4-10.2) mg/dL Total Bilirubin 0.5 (0.2-1.3) mg/dL AST 39 (17-59) U/L ALT 55 (21-72) U/L Alkaline Phosphatase 50 (38-126) U/L Total Creatine Kinase 196 H (55-170) U/L CK-MB (CK-2) 3.1 H* (0.0-2.4) ng/mL CK-MB (CK-2) Rel Index 1.6 Troponin I <0.012 (0.000-0.034) ng/mL Total Protein 7.3 (6.3-8.2) g/dL Albumin 4.0 (3.5-5.0) g/dL 12/12/17 Range/Units 22:30 WBC (3.8-10.6) k/uL RBC (4.30-5.90) m/uL Hgb (13.0-17.5) gm/dL Hct (39.0-53.0) % MCV (80.0-100.0) fL MCH (25.0-35.0) pg MCHC (31.0-37.0) g/dL RDW (11.5-15.5) % Plt Count (150-450) k/uL Neutrophils % (Manual) % Lymphocytes % (Manual) % Monocytes % (Manual) % Eosinophils % (Manual) % Basophils % (Manual) % Neutrophils # (Manual) (1.3-7.7) k/uL Lymphocytes # (Manual) (1.0-4.8) k/uL Monocytes # (Manual) (0-1.0) k/uL Eosinophils # (Manual) (0-0.7) k/uL Basophils # (Manual) (0-0.2) k/uL Nucleated RBCs (0-0) /100 WBC Manual Slide Review Reactive Lymphocytes Macrocytosis PT 10.6 (9.0-12.0) sec INR 1.1 (<1.2) APTT 22.0 (22.0-30.0) sec Sodium (137-145) mmol/L Potassium (3.5-5.1) mmol/L Chloride (98-107) mmol/L Carbon Dioxide (22-30) mmol/L Anion Gap mmol/L BUN (9-20) mg/dL Creatinine (0.66-1.25) mg/dL Est GFR (MDRD) Af Amer (>60 ml/min/1.73 sqM) Est GFR (MDRD) Non-Af (>60 ml/min/1.73 sqM) Glucose (74-99) mg/dL Calcium (8.4-10.2) mg/dL Total Bilirubin (0.2-1.3) mg/dL AST (17-59) U/L ALT (21-72) U/L Alkaline Phosphatase (38-126) U/L Total Creatine Kinase (55-170) U/L CK-MB (CK-2) (0.0-2.4) ng/mL CK-MB (CK-2) Rel Index Troponin I (0.000-0.034) ng/mL Total Protein (6.3-8.2) g/dL Albumin (3.5-5.0) g/dL Disposition Clinical Impression: Acute alcohol intoxication, Chest pain Disposition: HOME SELF-CARE Condition: Good Instructions: Chest Pain (ED) Referrals: Durga Garza MD [Primary Care Provider] - 1-2 days Melissa Arana MD [STAFF PHYSICIAN] - 1-2 days
[2017-12-12 23:11] LABS: Basophils # (M) 0.07 k/uL (0-0.2); Eosinophils # (M) 0.71 k/uL (0-0.7); Lymphocytes # (M) 3.48 k/uL (1.0-4.8); Monocytes # (M) 0.43 k/uL (0-1.0); Neutrophils # (M) 2.41 k/uL (1.3-7.7); Neutrophils % (M) 34 %; Nucleated Red Blood Cells 0 /100 WBC (0-0); Reactive Lymphocytes Present; Total Cells Counted 100
[2017-12-12 23:16] LABS: Troponin I <0.012 ng/mL (0.000-0.034)
[2017-12-12 23:21] LABS: Creatine Kinase MB 3.1 ng/mL (0.0-2.4)
[2017-12-13] MEDS ORDERED: MORPHINE SULFATE 4 MG/ML SYRINGE IV PRN (01:26)
[2017-12-13] MEDS ORDERED: IPRATROPIUM-ALBUTEROL 3 ML NEB INHALATION PRN (01:30)
[2017-12-13] MEDS ORDERED: DILTIAZEM CD 180 MG CAP.ER.24H PO STA (04:09)
[2017-12-13 06:01] LABS: Creatine Kinase 157 U/L (55-170)
[2017-12-13 06:14] LABS: Troponin I <0.012 ng/mL (0.000-0.034)
[2017-12-13 06:17] LABS: Creatine Kinase MB 2.7 ng/mL (0.0-2.4)
[2017-12-13] MEDS: NITROGLYCERIN OINT 1 INCH/GM PACKET TOPICAL SCH ×4 (06:30→23:36)
[2017-12-13] MEDS: PANTOPRAZOLE 40 MG TABLET PO SCH (06:30)
[2017-12-13] MEDS: DILTIAZEM CD 180 MG CAP.ER.24H PO SCH (07:59)
[2017-12-13] MEDS: NITROGLYCERIN SL TABS 0.4 MG TAB SUBLINGUAL PRN ×2 (08:00→08:07)
[2017-12-13] MEDS ORDERED: SYMBICORT 160-4.5 MCG INHALER INHALATION SCH (08:00)
--- NOTE | 2017-12-13 10:13 | CONS ---
CONSULTATION Mr. Craig is a 62-year-old gentleman who is seen for cardiac evaluation. This patient's medical records, as well as old records reviewed. The patient came to the hospital with a complaint of shortness of breath and also chest pain. The chest pain was in the right lower rib costal margin increases with breathing, intermittent sharp pain. The patient also gives a history that he has a history of he was drinking. The patient gives a history that he had a fall and sustained a rib fracture a few months ago. Patient was admitted in July of 2017 with atypical chest pain and the patient underwent a stress test which was normal. HOME MEDICATIONS: Include Symbicort, Cardizem, albuterol and omeprazole. REVIEW OF THE SYSTEM: Otherwise unremarkable. PAST MEDICAL HISTORY: Includes history of COPD, asthma, history of fall and right-sided pneumothorax, history of alcoholic liver disease. Past history of orthopedic surgery. The patient had a negative stress test in July. PHYSICAL EXAMINATION: At present reveals a 62-year-old gentleman who at present does not appear to be in any acute distress. The patient heart rate is 100, blood pressure is 112/64 mmHg. HEENT examination is negative. NECK: Supple. There is no increase in jugular venous pressure. Both the carotid pulses are felt. There is no bruit. Heart first and second heart sounds are normal. LUNGS: With bilateral scattered wheezes. ABDOMEN: Soft. Extremities, peripheral pulses are 1+. Cardiac enzymes are negative. Liver enzymes are mildly elevated. EKG shows normal sinus rhythm without any acute ischemic changes. Intermittent PVCs are noted. FINAL IMPRESSION: This patient's chest pains are atypical pain. EKGs and cardiac enzymes are normal. The patient had a recent stress test was normal. Symptomatic medical therapy is recommended. MMODL / IJN: [id number] /
[2017-12-13 12:07] LABS: Creatine Kinase 134 U/L (55-170)
[2017-12-13 12:20] LABS: Troponin I <0.012 ng/mL (0.000-0.034)
[2017-12-13 12:38] LABS: Creatine Kinase MB 2.5 ng/mL (0.0-2.4)
[2017-12-13] MEDS: METHADONE 10 MG TAB PO SCH ×2 (12:45→21:43)
[2017-12-13] MEDS ORDERED: TEMAZEPAM 15 MG CAP PO PRN (15:13)
[2017-12-13] MEDS: IPRATROPIUM-ALBUTEROL 3 ML NEB INHALATION SCH ×2 (15:21→19:51)
[2017-12-13] MEDS: cefTRIAXone IN SWFI 1,000 MG/10 ML SYRINGE IVP SCH (15:38)
--- NOTE | 2017-12-13 15:54 | HP ---
HISTORY AND PHYSICAL DATE OF SERVICE: 12/13/2017 CHIEF COMPLAINTS: Shortness of breath and chest pain. HISTORY OF PRESENT ILLNESS: This 62-year-old gentleman with a past medical history of multiple medical problems including history of COPD, CHF, liver disease, hypertension, COPD, anxiety being followed by Dr. Durga Garza in the outpatient setting, is complaining of chest pain. The pain is on the central part of the chest pain on the right side. The patient also has significant alcohol history recently. The patient also has some dry cough, shortness of breath and patient came to [facility] and was admitted for further evaluation and treatment. There is no history of fever, rigors, no headache. The patient apparently recently had a negative cardiac workup. PAST MEDICAL HISTORY: Asthma, CHF, COPD, hypertension, history of right-sided pneumothorax traumatic, fractures, alcoholism, history of liver disease, history of anxiety. MEDICATIONS: Prior to admission include home medications are: 1. Methadone 30 mg p.o. b.i.d. 2. DuoNeb q.i.d. p.r.n. 3. Cardizem CD 180 mg. 4. Symbicort 160/4.5 two puffs b.i.d. 5. Xanax 1 mg p.o. q.h.s. ALLERGIES: pigeon feces. SOCIAL HISTORY: Previous history of smoking and alcohol as mentioned earlier. FAMILY HISTORY: History of melanoma, CHF, CAD, hypertension. REVIEW OF SYSTEMS: ENT: No diminished hearing or vision. CARDIOVASCULAR: As mentioned earlier. RESPIRATORY: As mentioned earlier. GI: No nausea. : No dysuria. NERVOUS SYSTEM: As mentioned earlier. ALLERGY/IMMUNOLOGY: As mentioned earlier. MUSCULOSKELETAL: As mentioned earlier. HEMATOLOGY: No history of anemia. ENDOCRINE: No history of diabetes, hypothyroidism. CONSTITUTIONAL: As mentioned earlier. DERMATOLOGY: Negative. RHEUMATOLOGY: Negative. PSYCHIATRY: As mentioned earlier. PHYSICAL EXAM: Patient is alert, oriented. Pulse is 111, blood pressure 120/70, respiration 18 , temperature 98.4, pulse ox 94% on room air. HEENT: Conjunctivae normal. Oral mucosa moist. NECK: No jugular venous distention. No carotid bruit. No lymph node enlargement. CARDIOVASCULAR: S1, S2. RESPIRATORY: Breath sounds diminished in the bases. Bilateral scattered rhonchi and crackles. Expiratory wheezing also present. ABDOMEN: Soft, nontender. No mass palpable. LEGS: No edema. NERVOUS SYSTEM: Higher functions as mentioned earlier, moves all 4 limbs, no focal motor deficits. LYMPHATICS: No lymphadenopathy in the neck, axillae, groin. SKIN: No ulcers, rash or bleeding. LAB STUDIES: WBC 7.8, hemoglobin 16.2, MCV 105.3. CK-MB is noted. ASSESSMENT: 1. Central and right-sided chest pain possibly musculoskeletal. 2. Chronic obstructive pulmonary disease, acute exacerbation acute purulent tracheobronchitis. 3. History of ETOH. 4. History of nicotine dependence. 5. History of asthma, chronic obstructive pulmonary disease. 6. History of congestive heart failure. 7. Hypertension. 8. History of chronic liver disease. 9. History of right traumatic pneumothorax. 10.History of alcohol. 11.History of delirium tremens. 12.History of Methicillin-resistant Staphylococcus aureus. 13.Anxiety. RECOMMENDATIONS AND DISCUSSION: This 62-year-old gentleman who presented with multiple complex medical issues, we will monitor the patient closely. Continue the current management and symptomatic treatment. Otherwise at this time I recommend intensive bronchodilator treatment and empiric antibiotics. Closely follow with Pulmonary, Dr. Garza. otherwise steroids. Monitor blood sugars closely. Continue the rest of the home medications. Guarded prognosis because of multiple complex medical issues. Further recommendations to follow. A copy of dictation forwarded to Greg who is the primary physician. MMODL / IJN: [id number] / MTDD
[2017-12-13 17:11] LABS: Appearance,Urine Clear (Clear); Bilirubin,Urine Negative (Negative); Blood,Urine Negative (Negative); Color,Urine Yellow; Glucose,Urine (UA) Negative (Negative); Ketones,Urine Trace (Negative); Leukocyte Esterase,Urine Negative (Negative); Nitrite,Urine Negative (Negative); Protein,Urine Negative (Negative); Specific Gravity,Urine 1.021 (1.001-1.035); Urobilinogen,Urine <2.0 mg/dL (<2.0)
[2017-12-13 17:15] LABS: Glucose,Whole Blood 126 mg/dL (75-99)
[2017-12-13 17:23] LABS: Amphetamine Screen,Urine Not Detected (NotDetected); Barbiturate Screen,Urine Not Detected (NotDetected); Benzodiazepines Screen,Urine Not Detected (NotDetected); Cocaine Screen,Urine Not Detected (NotDetected); Methadone Screen, Urine Detected (NotDetected); Opiate Screen,Urine Not Detected (NotDetected); Oxycodone Screen, Urine Not Detected (NotDetected); Phencyclidine Screen,Urine Not Detected (NotDetected); Tricyclic Antidepressant,Urine Not Detected (NotDetected); Urn Cannabinoid Scrn Not Detected (NotDetected)
[2017-12-13] MEDS: methylPREDNISolone SOD SUCCI 125 MG/2 ML VIAL IV SCH ×2 (17:48→23:35)
[2017-12-13] MEDS: INSULIN ASPART 100 UNIT/ML 1 ML 10 ML VIAL SQ SCH ×2 (17:48→21:45)
[2017-12-13] MEDS: BUDESONIDE 1 MG/2 ML NEBU INHALATION SCH (19:51)
[2017-12-13] MEDS: FORMOTEROL FUMARATE 20 MCG/2 ML NEBU INHALATION SCH (20:06)
[2017-12-13 21:01] LABS: Glucose,Whole Blood 163 mg/dL (75-99)
[2017-12-13] MEDS: ALPRAZolam 1 MG TAB PO SCH (21:43)
[2017-12-13] MEDS: HEPARIN SODIUM,PORCINE 5,000 UNIT/ML 1 ML VIAL SQ SCH (21:45)
[2017-12-14] MEDS: methylPREDNISolone SOD SUCCI 125 MG/2 ML VIAL IV SCH ×4 (05:28→23:39)
[2017-12-14] MEDS: NITROGLYCERIN OINT 1 INCH/GM PACKET TOPICAL SCH ×3 (05:30→20:35)
[2017-12-14] MEDS: FORMOTEROL FUMARATE 20 MCG/2 ML NEBU INHALATION SCH ×2 (06:05→20:43)
[2017-12-14] MEDS: BUDESONIDE 1 MG/2 ML NEBU INHALATION SCH ×2 (06:05→20:43)
[2017-12-14] MEDS: IPRATROPIUM-ALBUTEROL 3 ML NEB INHALATION SCH ×4 (06:06→20:43)
[2017-12-14 07:05] LABS: Basophils % (A) 0 %; Eosinophils # (A) 0.1 k/uL (0-0.7); Eosinophils % (A) 0 %; HCT 45.5 % (39.0-53.0); HGB 14.5 gm/dL (13.0-17.5); Lymphocytes # (A) 1.1 k/uL (1.0-4.8); Lymphocytes % (A) 10 %; MCH 34.9 pg (25.0-35.0); MCHC 31.9 g/dL (31.0-37.0); MCV 109.4 fL (80.0-100.0); Macrocytosis Marked; Monocytes # (A) 0.3 k/uL (0-1.0); Monocytes % (A) 3 %; Neutrophils # (A) 9.6 k/uL (1.3-7.7); Neutrophils % (A) 86 %; Platelet Count 211 k/uL (150-450); RBC 4.16 m/uL (4.30-5.90); RDW 15.7 % (11.5-15.5); WBC 11.1 k/uL (3.8-10.6)
[2017-12-14 07:13] LABS: Anion Gap 15 mmol/L; Blood Urea Nitrogen 19 mg/dL (9-20); Calcium 9.1 mg/dL (8.4-10.2); Carbon Dioxide 21 mmol/L (22-30); Chloride 104 mmol/L (98-107); Cholesterol 175 mg/dL (<200); Glucose 172 mg/dL (74-99); HDL Cholesterol 56 mg/dL (40-60); LDL Cholesterol,Calculated 99 mg/dL (0-99); Potassium 4.4 mmol/L (3.5-5.1); Sodium 140 mmol/L (137-145); Triglycerides 101 mg/dL (<150)
[2017-12-14] MEDS: INSULIN ASPART 100 UNIT/ML 1 ML 10 ML VIAL SQ SCH ×4 (09:08→21:49)
[2017-12-14] MEDS: PANTOPRAZOLE 40 MG TABLET PO SCH (09:16)
[2017-12-14] MEDS: ASPIRIN 325 MG TAB PO SCH (09:16)
[2017-12-14] MEDS: DILTIAZEM CD 180 MG CAP.ER.24H PO SCH (09:16)
[2017-12-14] MEDS: METHADONE 10 MG TAB PO SCH ×2 (09:18→20:31)
[2017-12-14] MEDS: HEPARIN SODIUM,PORCINE 5,000 UNIT/ML 1 ML VIAL SQ SCH ×2 (09:20→20:33)
[2017-12-14 09:43] LABS: Poikilocytosis (M) Present
[2017-12-14 12:04] LABS: Glucose,Whole Blood 119 mg/dL (75-99)
[2017-12-14] MEDS ORDERED: LORazepam 2 MG/ML INJ IV PRN ×3 (12:41)
[2017-12-14] MEDS ORDERED: THIAMINE 100 MG/ML 2 ML VIAL IM STA (12:41)
[2017-12-14 13:10] LABS: Hemoglobin A1C 5.2 % (4.0-6.0)
[2017-12-14] MEDS ORDERED: MORPHINE ORAL SOLN 10 MG/5 ML CUP PO PRN (14:07)
[2017-12-14] MEDS: cefTRIAXone IN SWFI 1,000 MG/10 ML SYRINGE IVP SCH (16:43)
[2017-12-14] MEDS: THIAMINE 100 MG TAB PO SCH (16:43)
--- NOTE | 2017-12-14 17:07 | P.CNPUL ---
History of Present Illness Consult date: 12/13/17 (Late entry note) Reason for consult: dyspnea, cough, chest pain, asthma, COPD Chief complaint: Shortness of breath cough, along with intermittent right-sided chest pain History of present illness: Mr. Lee biggest seen and evaluated examined on third floor this patient is a pleasant 62-year-old male with history of pulmonary sarcoidosis severe COPD emphysema and chronic asthmatic bronchitis, recently hospitalized with the fall and a fracture and had a pneumonia recovered was discharged. Patient developed one to 2 day history of right-sided chest pain for which she presented into the hospital is been having intermittent cough as well also drink very heavily for the last several days. She denies any night sweats fever or chills does have some shortness of breath as well as coughing which is dry and nonproductive with achy pain sensation in the lower right thoracic wall , patient does have a history of prior falls and fracture in the same area, denies any hemoptysis, Review of Systems All systems: negative (Unremarkable and noncontributory except as dictated above ) Past Medical History Past Medical History: Asthma, Chest Pain / Angina, Heart Failure, COPD, Hypertension, Liver Disease, Pneumonia Additional Past Medical History / Comment(s): COPD, recent hospitalization with fall and a small right-sided pneumothorax, traumatic seventh through ninth nondisplaced rib fractures, alcoholism, previous history of delirium tremens, liver 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 states his lung Past Surgical History: Orthopedic Surgery Additional Past Surgical History / Comment(s): neck fracture, Past Anesthesia/Blood Transfusion Reactions: No Reported Reaction Smoking Status: Former smoker - Past Family History Father Family Medical History: Congestive Heart Failure (CHF), Coronary Artery Disease (CAD), Hypertension Mother Family Medical History: Cancer, Hypertension Additional Family Medical History / Comment(s): Melanoma on nose. Medications and Allergies Home Medications Medication Instructions Recorded Confirmed Type Budesonide-Formot 160-4.5 Mcg 2 puff INHALATION RT-BID #1 inhaler 08/08/1712/13 Rx [Symbicort 160-4.5 Mcg Inhaler] Diltiazem Cd [Cardizem CD] 180 mg PO DAILY #24 cap.er.24h 10/28/17 03/04/18 Rx ALPRAZolam [Xanax] 1 mg PO HS 12/13/17 12/13/17 History Methadone [Dolophine] 30 mg PO BID 12/13/17 12/13/17 History Cefuroxime Axetil [Ceftin] 500 mg PO BID #10 tab 12/14/17 Rx Ipratropium-Albuterol Nebulize 3 ml INHALATION RT-QID #300 12/14/17 12/13/17 Rx [Duoneb 0.5 mg-3 mg/3 ml Soln] ampul.neb Pantoprazole [Protonix] 40 mg PO AC-BRKFST tablet. 12/14/17 Rx predniSONE 10 mg PO DIRECTED #30 tab 12/14/17 Rx Allergies Allergy/AdvReac Type Severity Reaction Status Date / Time [place] Feces Allergy Dyspnea Uncoded 12/13/17 03:50 Physical Exam Vitals: Vital Signs Temp Pulse Pulse Pulse Pulse Resp BP 12/14/17 16:45 104 H 12/14/17 16:30 96 12/14/17 16:00 97.8 F 87 18 130/78 12/14/17 12:43 80 12/14/17 12:32 80 12/14/17 11:54 97.8 F 91 18 111/55 12/14/17 08:00 97.6 F 102 H 18 120/58 12/14/17 06:28 76 12/14/17 06:19 80 12/14/17 06:18 80 12/14/17 06:06 76 12/14/17 04:00 97.9 F 86 16 12/14/17 00:00 98.1 F 78 16 12/13/17 23:30 16 12/13/17 23:11 98.1 F 95 16 12/13/17 20:30 98.1 F 74 19 12/13/17 20:20 80 16 12/13/17 20:06 79 16 12/13/17 20:05 78 16 12/13/17 19:51 80 16 BP Pulse Ox 12/14/17 16:45 12/14/17 16:30 12/14/17 16:00 89 L 12/14/17 12:43 12/14/17 12:32 12/14/17 11:54 91 L 12/14/17 08:00 90 L 12/14/17 06:28 12/14/17 06:19 12/14/17 06:18 12/14/17 06:06 12/14/17 04:00 132/75 91 L 12/14/17 00:00 148/72 97 12/13/17 23:30 12/13/17 23:11 151/78 93 L 12/13/17 20:30 139/71 93 L 12/13/17 20:20 12/13/17 20:06 12/13/17 20:05 12/13/17 19:51 Intake and Output 12/14/17 12/14/17 12/14/17 06:59 14:59 22:59 Intake Total 677 Balance 677 Intake: Oral 477 Other 200 Other: Voiding Method Toilet Toilet Toilet # Voids 1 General: The patient is awake and alert, in no distress, and does not appear acutely ill. He is intoxicated but pleasant and cooperative Skin: Skin is warm and dry and no rashes or lesions are noted. Eye: Pupils are equal, round and reactive to light, extra-ocular movements are intact; there is normal conjunctiva bilaterally. Ears, nose, mouth and throat: There are moist mucous membranes and no oral lesions. Neck: The neck is supple, there is no tenderness Cardiovascular: There is a regular rate and rhythm. No murmur, rub or gallop is appreciated. Respiratory: To auscultation bilateral, poor air entry is present no raise rhonchi has been noted, mild right-sided thoracic wall tenderness noted in palpation Gastrointestinal: Soft, non-distended, non-tender abdomen without masses or organomegaly noted. There is no rebound or guarding present. Bowel sounds are unremarkable. Back: There is no tenderness to palpation in the midline. There is no obvious deformity. Musculoskeletal: Normal ROM, no tenderness, There is no pedal edema. There is no calf tenderness or swelling. No cords were appreciated. Neurological: CN II-XII intact, Cranial nerves III through XII are intact. There are no obvious motor or sensory deficits. Coordination appears grossly intact. Speech is normal. Psychiatric: Cooperative, appropriate mood & affect, normal judgment. He denies any suicidal or homicidal ideation Results - Laboratory Findings CBC and BMP: 12/14/17 06:34 12/14/17 06:34 PT/INR, D-dimer PT 10.6 sec (9.0-12.0) 12/12/17 22:30 INR 1.1 (<1.2) 12/12/17 22:30 Abnormal lab findings: Abnormal Labs 12/12/17 12/12/17 12/12/17 22:30 22:30 22:30 WBC RBC MCV 105.3 H RDW 15.6 H Neutrophils # Eosinophils # (Manual) 0.71 H Chloride 108 H Carbon Dioxide 21 L BUN 8 L Glucose 114 H POC Glucose (mg/dL) Total Creatine Kinase 196 H CK-MB (CK-2) 3.1 H* Urine Ketones Urine Methadone Screen 12/13/17 12/13/17 12/13/17 05:05 11:00 16:45 WBC RBC MCV RDW Neutrophils # Eosinophils # (Manual) Chloride Carbon Dioxide BUN Glucose POC Glucose (mg/dL) 126 H Total Creatine Kinase CK-MB (CK-2) 2.7 H* 2.5 H* Urine Ketones Urine Methadone Screen 12/13/17 12/13/17 12/14/17 17:07 20:59 06:34 WBC RBC MCV RDW Neutrophils # Eosinophils # (Manual) Chloride Carbon Dioxide 21 L BUN Glucose 172 H POC Glucose (mg/dL) 163 H Total Creatine Kinase CK-MB (CK-2) Urine Ketones Trace H Urine Methadone Screen Detected H 12/14/17 12/14/17 06:34 12:01 WBC 11.1 H RBC 4.16 L MCV 109.4 H RDW 15.7 H Neutrophils # 9.6 H Eosinophils # (Manual) Chloride Carbon Dioxide BUN Glucose POC Glucose (mg/dL) 119 H Total Creatine Kinase CK-MB (CK-2) Urine Ketones Urine Methadone Screen - Diagnostic Findings Chest x-ray: report reviewed, image reviewed (COPD-like changes along with some fibrotic changes in the left lower lobe overall not much different or change compared to prior exam) Assessment and Plan Assessment: Right-sided chest wall pain with atypical chest pain appears to be related to musculoskeletal pain Acute COPD exacerbation Left lower lobe pneumonia cannot be excluded History of recent binge drinking with the impending alcohol withdrawal and/or or DTs History of chronic pain syndrome on methadone maintenance program History of pulmonary sarcoidosis with history of chronic persistent asthma Mildly elevated first set of cardiac enzymes Plan: Continue breathing treatments Gentle rehydration Agree with cardiovascular evaluation DVT and peptic ulcer disease prophylaxis Monitor patient closely for the alcohol withdrawal and impending DTs Continue antibiotics monitor observe clinical course closely would avoid IV steroids for now, further recommendations pending plan of care as per clinical response of the patient Time with Patient: Greater than 30
[2017-12-14 17:09] LABS: Glucose,Whole Blood 129 mg/dL (75-99)
--- NOTE | 2017-12-14 17:12 | P.PN ---
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 More composed no obvious tremulousness is present, x-ray and laboratory data reviewed Mr. Lee biggest seen and evaluated examined on third floor this patient is a pleasant 62-year-old male with history of pulmonary sarcoidosis severe COPD emphysema and chronic asthmatic bronchitis, recently hospitalized with the fall and a fracture and had a pneumonia recovered was discharged. Patient developed one to 2 day history of right-sided chest pain for which she presented into the hospital is been having intermittent cough as well also drink very heavily for the last several days. She denies any night sweats fever or chills does have some shortness of breath as well as coughing which is dry and nonproductive with achy pain sensation in the lower right thoracic wall , patient does have a history of prior falls and fracture in the same area, denies any hemoptysis, Objective - Vital Signs Vital signs: Vital Signs Temp 97.8 F 12/14/17 16:00 Pulse 104 H 12/14/17 16:45 Resp 18 12/14/17 16:00 BP 130/78 12/14/17 16:00 Pulse Ox 89 L 12/14/17 16:00 Intake & Output 12/13/17 12/14/17 12/14/17 18:59 06:59 18:59 Intake Total 580 677 Output Total 250 Balance 330 677 Intake: Oral 580 477 Other 200 Output: Urine 250 Other: Voiding Method Toilet Toilet # Voids 1 1 - Exam General: The patient is awake and alert, in no distress, and does not appear acutely ill. He is intoxicated but pleasant and cooperative Skin: Skin is warm and dry and no rashes or lesions are noted. Eye: Pupils are equal, round and reactive to light, extra-ocular movements are intact; there is normal conjunctiva bilaterally. Ears, nose, mouth and throat: There are moist mucous membranes and no oral lesions. Neck: The neck is supple, there is no tenderness Cardiovascular: There is a regular rate and rhythm. No murmur, rub or gallop is appreciated. Respiratory: To auscultation bilateral, poor air entry is present no raise rhonchi has been noted, mild right-sided thoracic wall tenderness noted in palpation Gastrointestinal: Soft, non-distended, non-tender abdomen without masses or organomegaly noted. There is no rebound or guarding present. Bowel sounds are unremarkable. Back: There is no tenderness to palpation in the midline. There is no obvious deformity. Musculoskeletal: Normal ROM, no tenderness, There is no pedal edema. There is no calf tenderness or swelling. No cords were appreciated. Neurological: CN II-XII intact, Cranial nerves III through XII are intact. There are no obvious motor or sensory deficits. Coordination appears grossly intact. Speech is normal. Psychiatric: Cooperative, appropriate mood & affect, normal judgment. He denies any suicidal or homicidal ideation - Labs CBC & Chem 7: 12/14/17 06:34 12/14/17 06:34 Labs: Abnormal Lab Results - Last 24 Hours (Table) 12/13/17 12/13/17 12/13/17 Range/Units 16:45 17:07 20:59 WBC (3.8-10.6) k/uL RBC (4.30-5.90) m/uL MCV (80.0-100.0) fL RDW (11.5-15.5) % Neutrophils # (1.3-7.7) k/uL Carbon Dioxide (22-30) mmol/L Glucose (74-99) mg/dL POC Glucose (mg/dL) 126 H 163 H (75-99) mg/dL Urine Ketones Trace H (Negative) Urine Methadone Screen Detected H (NotDetected) 12/14/17 12/14/17 12/14/17 Range/Units 06:34 06:34 12:01 WBC 11.1 H (3.8-10.6) k/uL RBC 4.16 L (4.30-5.90) m/uL MCV 109.4 H (80.0-100.0) fL RDW 15.7 H (11.5-15.5) % Neutrophils # 9.6 H (1.3-7.7) k/uL Carbon Dioxide 21 L (22-30) mmol/L Glucose 172 H (74-99) mg/dL POC Glucose (mg/dL) 119 H (75-99) mg/dL Urine Ketones (Negative) Urine Methadone Screen (NotDetected) Assessment and Plan Assessment: Right-sided chest wall pain with atypical chest pain appears to be related to musculoskeletal pain, improve Acute COPD exacerbation Left lower lobe pneumonia versus chemical aspiration pneumonitis cannot be excluded, we'll repeat a follow-up chest x-ray tomorrow. And lateral view History of recent binge drinking with the impending alcohol withdrawal and/or or DTs History of chronic pain syndrome on methadone maintenance program History of pulmonary sarcoidosis with history of chronic persistent asthma Mildly elevated first set of cardiac enzymes however subsequent sets are within normal limit Plan: Continue breathing treatments Gentle rehydration Agree with cardiovascular evaluation DVT and peptic ulcer disease prophylaxis Monitor patient closely for the alcohol withdrawal and impending DTs Continue antibiotics monitor observe clinical course closely would avoid IV steroids for now, further recommendations pending plan of care as per clinical response of the patient, we'll repeat chest x-ray tomorrow morning if remains stable no evidence of withdrawal or DTs are noted. Very well be discharged home with follow-up in outpatient setting Time with Patient: Greater than 30
--- NOTE | 2017-12-14 17:46 | PN ---
PROGRESS NOTE DATE OF SERVICE: 12/14/2017. INTERIM HISTORY: This 62-year-old gentleman who was admitted with also COPD exacerbation as well as acute ventricular bronchitis also. The patient has significant shortness of breath which is being treated with bronchodilators. Dr. Garza is following the patient as well as Cardiology. No chest pain. No palpitations. No fever. PHYSICAL EXAM: Alert and oriented times three. Pulse is 87, blood pressure 130/78, respiration 18, temperature 97.8, pulse ox 98% on room air. HEENT: Conjunctivae normal. Neck: No jugular venous distention. Cardiovascular : S1, S2 muffled. Respiratory: Breath sounds diminished in the bases. A few scattered rhonchi and crackles. Expiratory wheezing also present. ABDOMEN: Soft, nontender. No mass palpable. Legs: No edema. No swelling. Nervous system: Higher functions as mentioned. Moves all four limbs. No focal motor deficits noted. SKIN: No ulcer, rash or bleeding. LABS: WBC 11.9, hemoglobin 14.5. ASSESSMENT: 1. Symptomatic right-sided chest pain possibly musculoskeletal. 2. Chronic obstructive pulmonary disease acute exacerbation with acute purulent tracheobronchitis. 3. History of ETOH. 4. History of nicotine dependence. 5. History of asthma, COPD. 6. History of congestive heart failure. 7. Hypertension. 8. History of chronic liver disease. 9. Right traumatic pneumothorax. 10.History of alcohol. 11.History of delirium tremens. 12.History of MRSA. 13.History of anxiety. RECOMMENDATIONS AND DISCUSSION: Recommend to continue current medications, management and symptomatic treatment. Otherwise, at this time, follow the patient closely. Guarded prognosis because of multiple medical problems. Further recommendations to follow. MMODL / IJN: [id number] / BLU
[2017-12-14] MEDS: ALPRAZolam 1 MG TAB PO SCH (20:31)
[2017-12-14 20:58] LABS: Glucose,Whole Blood 143 mg/dL (75-99)
[2017-12-15] MEDS: NITROGLYCERIN OINT 1 INCH/GM PACKET TOPICAL SCH ×4 (00:48→21:44)
[2017-12-15] MEDS: methylPREDNISolone SOD SUCCI 125 MG/2 ML VIAL IV SCH ×2 (06:19→13:26)
[2017-12-15 06:44] LABS: Basophils % (A) 0 %; Eosinophils # (A) 0.1 k/uL (0-0.7); Eosinophils % (A) 1 %; HCT 42.7 % (39.0-53.0); HGB 14.5 gm/dL (13.0-17.5); Lymphocytes # (A) 0.9 k/uL (1.0-4.8); Lymphocytes % (A) 7 %; MCH 36.2 pg (25.0-35.0); MCV 106.5 fL (80.0-100.0); Macrocytosis Moderate; Mean Platelet Volume 7.1; Monocytes # (A) 0.6 k/uL (0-1.0); Monocytes % (A) 5 %; Neutrophils % (A) 87 %; Platelet Count 189 k/uL (150-450); RBC 4.01 m/uL (4.30-5.90); RDW 15.6 % (11.5-15.5); WBC 12.7 k/uL (3.8-10.6)
[2017-12-15 06:56] LABS: Calcium 9.2 mg/dL (8.4-10.2); Potassium 4.7 mmol/L (3.5-5.1)
[2017-12-15 07:01] LABS: Glucose,Whole Blood 118 mg/dL (75-99)
[2017-12-15] MEDS: IPRATROPIUM-ALBUTEROL 3 ML NEB INHALATION SCH ×4 (07:28→19:31)
[2017-12-15] MEDS: BUDESONIDE 1 MG/2 ML NEBU INHALATION SCH ×2 (07:28→19:39)
[2017-12-15] MEDS: INSULIN ASPART 100 UNIT/ML 1 ML 10 ML VIAL SQ SCH ×4 (07:28→22:12)
[2017-12-15] MEDS: FORMOTEROL FUMARATE 20 MCG/2 ML NEBU INHALATION SCH ×2 (07:28→19:39)
[2017-12-15] MEDS: HEPARIN SODIUM,PORCINE 5,000 UNIT/ML 1 ML VIAL SQ SCH (08:31)
[2017-12-15] MEDS: ASPIRIN 325 MG TAB PO SCH (08:31)
[2017-12-15] MEDS: PANTOPRAZOLE 40 MG TABLET PO SCH (08:31)
[2017-12-15] MEDS: DILTIAZEM CD 180 MG CAP.ER.24H PO SCH (08:32)
[2017-12-15] MEDS: METHADONE 10 MG TAB PO SCH ×2 (08:32→21:44)
--- NOTE | 2017-12-15 08:39 | XR ---
EXAMINATION TYPE: XR chest 2V DATE OF EXAM: 12/15/2017 COMPARISON: Prior chest x-ray 12/12/2017 HISTORY: Pneumonia TECHNIQUE: Frontal and lateral views of the chest are obtained. FINDINGS: Cardiac mediastinal silhouette, pulmonary vascularity and miguel shows stable appearance. No evident pneumothorax or pleural effusion. Lung volumes are low and the patient is rotated. Minimal p atchy density present at the lung bases. IMPRESSION: Expiratory rotated exam. Findings may represent subsegmental atelectasis, difficult to e xclude pneumonia. Follow-up recommended.
[2017-12-15 12:16] LABS: Glucose,Whole Blood 130 mg/dL (75-99)
[2017-12-15] MEDS: FUROSEMIDE 10 MG/ML 4 ML VIAL IV STA ×2 (13:40→18:08)
[2017-12-15] MEDS: AZITHROMYCIN 500 MG TAB PO SCH (13:41)
[2017-12-15] MEDS: THIAMINE 100 MG TAB PO SCH ×2 (13:41→21:43)
[2017-12-15] MEDS ORDERED: methylPREDNISolone SOD SUCCI 40 MG/ML 1 ML VIAL IV SCH (16:00)
--- NOTE | 2017-12-15 16:57 | PN ---
PROGRESS NOTE DATE OF SERVICE: 12/15/2017 This 62-year-old gentleman who was admitted with symptomatic right-sided chest pain also had significant COPD, acute exacerbation, as well. The patient has also had concerns regarding ETOH withdrawal. No chest pain. No palpitations. No fever. Dr. Durga Garza is following the patient closely. On exam, alert and oriented x3. Pulse 53, blood pressure 129/85, respiration 19, temperature 97.9, pulse ox 86% on 3 L. HEENT: Conjunctivae normal. NECK: No jugular venous distention. CARDIOVASCULAR SYSTEM: S1, S2 muffled. RESPIRATORY SYSTEM: Breath sounds diminished at the bases. A few scattered rhonchi and expiratory wheezing and crackles. ABDOMEN: Soft, non-tender. No mass palpable. LEGS: No edema. No swelling. NERVOUS SYSTEM: No focal deficit. LABS: WBC 12.7, hemoglobin 14.5. Creatinine is 1.52. ASSESSMENT: 1. Symptomatic right-sided chest pain, possibly musculoskeletal. 2. Chronic obstructive pulmonary disease, acute exacerbation, with acute purulent tracheobronchitis. 3. History of ethanol. 4. History of nicotine dependence. 5. History of asthma, chronic obstructive pulmonary disease. 6. History of congestive heart failure. 7. Hypertension. 8. History of chronic liver disease. 9. Right traumatic pneumothorax. 10.History of delirium tremens. 11.History of Methicillin-resistant Staphylococcus aureus. 12.History of anxiety. RECOMMENDATIONS AND DISCUSSION: In this 62-year-old gentleman who presented with multiple complex medical issues, we will monitor the patient closely, continue the current medications, continue with symptomatic treatment, continue the bronchodilators, taper the steroids. Closely follow with Dr. Garza. Repeat labs. Guarded prognosis. Further recommendations to follow. MMODL / IJN: [id number] /
[2017-12-15] MEDS ORDERED: FUROSEMIDE 40 MG TAB PO STA (17:53)
[2017-12-15] MEDS: cefTRIAXone IN SWFI 1,000 MG/10 ML SYRINGE IVP SCH (18:09)
--- NOTE | 2017-12-15 18:17 | P.PN ---
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, patient seen and evaluated examined during the rounds he is slightly tremulous with the complaining of shortness of breath and does have some tightness in the chest was severity of pain and that noted before has improved significantly repeat chest x-ray revealed developing pneumonia patient remains on antibiotics breathing treatments and steroids does have cough which is mostly dry and nonproductive, chest x-ray reviewed revealed presence of bilateral subsegmental infiltrate, labs reviewed white cell count overall remains stable patient has microcytic cytosis likely related to call his him and chronic liver disease, , renal failure functions remains on the higher side with a stage III renal failure was slight worsening compared to yesterday noted him a would recommend to repeat labs tomorrow 12/14/2017, patient seen eval examined during the rounds clinically doing well chest pain on the right side is very minimal shortness of breath is improved cough is better breathing more comfortably. More composed no obvious tremulousness is present, x-ray and laboratory data reviewed Mr. Mendoza's biggest seen and evaluated examined on third floor this patient is a pleasant 62-year-old male with history of pulmonary sarcoidosis severe COPD emphysema and chronic asthmatic bronchitis, recently hospitalized with the fall and a fracture and had a pneumonia recovered was discharged. Patient developed one to 2 day history of right-sided chest pain for which she presented into the hospital is been having intermittent cough as well also drink very heavily for the last several days. She denies any night sweats fever or chills does have some shortness of breath as well as coughing which is dry and nonproductive with achy pain sensation in the lower right thoracic wall , patient does have a history of prior falls and fracture in the same area, denies any hemoptysis, Objective - Vital Signs Vital signs: Vital Signs Temp 97.9 F 12/15/17 15:32 Pulse 53 L 12/15/17 15:32 Resp 19 12/15/17 15:32 BP 129/85 12/15/17 15:32 Pulse Ox 86 L 12/15/17 15:32 Intake & Output 12/14/17 12/15/17 12/15/17 18:59 06:59 18:59 Intake Total 1857 1040 Balance 1857 1040 Intake: Oral 1057 1040 Other 800 Other: Voiding Method Toilet Toilet Toilet # Voids 2 2 - Exam General: The patient is awake and alert, in no distress, and does not appear acutely ill. He is intoxicated but pleasant and cooperative Skin: Skin is warm and dry and no rashes or lesions are noted. Eye: Pupils are equal, round and reactive to light, extra-ocular movements are intact; there is normal conjunctiva bilaterally. Ears, nose, mouth and throat: There are moist mucous membranes and no oral lesions. Neck: The neck is supple, there is no tenderness Cardiovascular: There is a regular rate and rhythm. No murmur, rub or gallop is appreciated. Respiratory: To auscultation bilateral, poor air entry is present no raise rhonchi has been noted, mild right-sided thoracic wall tenderness noted in palpation Gastrointestinal: Soft, non-distended, non-tender abdomen without masses or organomegaly noted. There is no rebound or guarding present. Bowel sounds are unremarkable. Back: There is no tenderness to palpation in the midline. There is no obvious deformity. Musculoskeletal: Normal ROM, no tenderness, There is no pedal edema. There is no calf tenderness or swelling. No cords were appreciated. Neurological: CN II-XII intact, Cranial nerves III through XII are intact. There are no obvious motor or sensory deficits. Coordination appears grossly intact. Speech is normal. Psychiatric: Cooperative, appropriate mood & affect, normal judgment. He denies any suicidal or homicidal ideation - Labs CBC & Chem 7: 12/15/17 06:25 12/15/17 06:25 Labs: Abnormal Lab Results - Last 24 Hours (Table) 12/14/17 12/15/17 12/15/17 Range/Units 20:55 06:25 06:25 WBC 12.7 H (3.8-10.6) k/uL RBC 4.01 L (4.30-5.90) m/uL MCV 106.5 H (80.0-100.0) fL MCH 36.2 H (25.0-35.0) pg RDW 15.6 H (11.5-15.5) % Neutrophils # 11.0 H (1.3-7.7) k/uL Lymphocytes # 0.9 L (1.0-4.8) k/uL Carbon Dioxide 19 L (22-30) mmol/L BUN 37 H (9-20) mg/dL Creatinine 1.52 H (0.66-1.25) mg/dL Glucose 114 H (74-99) mg/dL POC Glucose (mg/dL) 143 H (75-99) mg/dL 12/15/17 12/15/17 Range/Units 06:59 12:09 WBC (3.8-10.6) k/uL RBC (4.30-5.90) m/uL MCV (80.0-100.0) fL MCH (25.0-35.0) pg RDW (11.5-15.5) % Neutrophils # (1.3-7.7) k/uL Lymphocytes # (1.0-4.8) k/uL Carbon Dioxide (22-30) mmol/L BUN (9-20) mg/dL Creatinine (0.66-1.25) mg/dL Glucose (74-99) mg/dL POC Glucose (mg/dL) 118 H 130 H (75-99) mg/dL Assessment and Plan Assessment: Stage III renal failure Right-sided chest wall pain with atypical chest pain appears to be related to musculoskeletal pain, improve Acute COPD exacerbation Bilateral lower lobe pneumonia continue antibiotics History of recent binge drinking with the impending alcohol withdrawal and/or or DTs History of chronic pain syndrome on methadone maintenance program History of pulmonary sarcoidosis with history of chronic persistent asthma Mildly elevated first set of cardiac enzymes however subsequent sets are within normal limit Plan: Continue breathing treatments Gentle rehydration Agree with cardiovascular evaluation DVT and peptic ulcer disease prophylaxis Monitor patient closely for the alcohol withdrawal and impending DTs Continue antibiotics monitor observe clinical course closely would avoid IV steroids for now, further recommendations pending plan of care as per clinical response of the patient, we'll repeat labs tomorrow morning if remains stable and no evidence of withdrawal or DTs are noted. Very well be discharged home with follow-up in outpatient setting Time with Patient: Greater than 30
[2017-12-15 19:21] LABS: Glucose,Whole Blood 118 mg/dL (75-99)
[2017-12-15 20:26] LABS: Glucose,Whole Blood 128 mg/dL (75-99)
[2017-12-15 20:32] LABS: ABG Base Excess -4.1 mmol/L; ABG HCO3 24 mmol/L (21-25); ABG Oxygen Saturation 92.6 % (94-97); ABG PCO2 63 mmHg (35-45); ABG PO2 75 mmHg (83-108); ABG TCO2 26 mmol/L (19-24)
[2017-12-15 20:33] LABS: ABG PH 7.19 (7.35-7.45)
[2017-12-15] MEDS ORDERED: NALOXONE 0.4 MG/ML 1 ML VIAL IV PRN (20:54)
[2017-12-15] MEDS: ALPRAZolam 1 MG TAB PO SCH (21:44)
[2017-12-15] MEDS ORDERED: FUROSEMIDE 10 MG/ML 4 ML VIAL IV STA (21:46)
[2017-12-15 21:57] LABS: Magnesium 2.1 mg/dL (1.6-2.3); Phosphorus 6.7 mg/dL (2.5-4.5)
[2017-12-16] MEDS: HEPARIN SODIUM,PORCINE 5,000 UNIT/ML 1 ML VIAL SQ SCH ×3 (01:43→21:00)
[2017-12-16] MEDS: NITROGLYCERIN OINT 1 INCH/GM PACKET TOPICAL SCH ×4 (03:24→18:50)
[2017-12-16 06:05] LABS: Albumin 3.8 g/dL (3.5-5.0); Calcium 8.8 mg/dL (8.4-10.2); Potassium 4.6 mmol/L (3.5-5.1); Total Bilirubin 0.6 mg/dL (0.2-1.3); Total Protein 6.7 g/dL (6.3-8.2)
[2017-12-16 06:06] LABS: Basophils % (A) 0 %; Eosinophils % (A) 0 %; HCT 38.9 % (39.0-53.0); HGB 13.5 gm/dL (13.0-17.5); Lymphocytes # (A) 0.9 k/uL (1.0-4.8); Lymphocytes % (A) 9 %; MCH 36.1 pg (25.0-35.0); MCHC 34.6 g/dL (31.0-37.0); MCV 104.3 fL (80.0-100.0); Macrocytosis Moderate; Mean Platelet Volume 7.7; Monocytes # (A) 0.7 k/uL (0-1.0); Monocytes % (A) 7 %; Neutrophils # (A) 8.1 k/uL (1.3-7.7); Neutrophils % (A) 83 %; Platelet Count 172 k/uL (150-450); RBC 3.73 m/uL (4.30-5.90); RDW 15.6 % (11.5-15.5); WBC 9.8 k/uL (3.8-10.6)
[2017-12-16] MEDS: FORMOTEROL FUMARATE 20 MCG/2 ML NEBU INHALATION SCH ×2 (07:26→19:18)
[2017-12-16] MEDS: BUDESONIDE 1 MG/2 ML NEBU INHALATION SCH ×2 (07:26→19:18)
[2017-12-16] MEDS: IPRATROPIUM-ALBUTEROL 3 ML NEB INHALATION SCH ×4 (07:26→19:18)
[2017-12-16 08:01] LABS: ABG HCO3 28 mmol/L (21-25); ABG PCO2 57 mmHg (35-45); ABG PO2 77 mmHg (83-108); ABG TCO2 30 mmol/L (19-24)
[2017-12-16 08:10] LABS: Magnesium 2.1 mg/dL (1.6-2.3); Phosphorus 5.9 mg/dL (2.5-4.5)
--- NOTE | 2017-12-16 08:21 | XR ---
EXAMINATION TYPE: XR chest 1V DATE OF EXAM: 12/16/2017 COMPARISON: 12/15/2017 HISTORY: 62-year-old male pneumonia, COPD TECHNIQUE: Single frontal view of the chest is obtained. FINDINGS: Heart remains mildly enlarged. Mild diffuse interstitial prominence is a chronic appearance. There is patchy retrocardiac opacity which persists. No increasing opacity. No significant pleural effusion s een on the frontal view. IMPRESSION: 1. Mild cardiomegaly unchanged. 2. Patchy retrocardiac atelectasis or developing infiltrate is also unchanged.
[2017-12-16] MEDS ORDERED: PANTOPRAZOLE 40 MG/10 ML VIAL IV SCH (09:00)
[2017-12-16] MEDS ORDERED: predniSONE 20 MG TAB PO SCH (09:00)
[2017-12-16] MEDS: INSULIN ASPART 100 UNIT/ML 1 ML 10 ML VIAL SQ SCH ×4 (09:22→21:39)
[2017-12-16] MEDS: AZITHROMYCIN 500 MG TAB PO SCH (09:23)
[2017-12-16] MEDS: METHADONE 10 MG TAB PO SCH (09:23)
[2017-12-16] MEDS: DILTIAZEM CD 180 MG CAP.ER.24H PO SCH (09:23)
[2017-12-16 11:49] LABS: Glucose,Whole Blood 120 mg/dL (75-99)
[2017-12-16] MEDS: ASPIRIN 325 MG TAB PO SCH (11:51)
[2017-12-16] MEDS: THIAMINE 100 MG TAB PO SCH ×2 (11:51→18:49)
[2017-12-16] MEDS ORDERED: LORazepam 2 MG/ML INJ IV PRN (14:54)
[2017-12-16 16:14] LABS: Ionized Calcium 4.8 mg/dL (4.5-5.3)
[2017-12-16 16:35] LABS: Magnesium 2.4 mg/dL (1.6-2.3); Phosphorus 5.6 mg/dL (2.5-4.5); Potassium 4.6 mmol/L (3.5-5.1)
[2017-12-16 17:14] LABS: Glucose,Whole Blood 109 mg/dL (75-99)
--- NOTE | 2017-12-16 18:16 | PN ---
PROGRESS NOTE DATE OF SERVICE: 12/16/2017. DATE OF SERVICE: This 62-year-old gentleman with COPD exacerbation and right sided chest pain took a turn for the worse last night. The patient became hypoxic and less responsive. The patient was transferred to the ICU and is being closely monitored at this time. The patient had hypercarbia and respiratory acidosis in the ABGs. The patient is rather drowsy. Dose of methadone has been cut down. PAST MEDICAL HISTORY: Reviewed. REVIEW OF SYSTEM: CARDIOVASCULAR: S1 and S2 muffled. GI: As mentioned. : No dysuria. NERVOUS SYSTEM: As mentioned. CURRENT MEDICATIONS: 1. [place] 5 mg every 6 p.r.n. 2. DuoNeb q.i.d. and p.r.n. 3. Xanax. 4. Aspirin 325 mg daily. 5. Pulmicort 1 mg b.i.d. 6. Cardizem CD 180 mg. 7. Perforomist 20 mg b.i.d. 8. Heparin. 9. Ativan. 11.Protonix. 12.Restoril. 13.Vitamin. PHYSICAL EXAM: Patient is alert, oriented x3. Pulse 95. Blood pressure 130/60, respiration 20 , temp is normal, pulse ox 93% on 4 L. HEENT: Conjunctivae normal. Oral mucosa moist. NECK: No jugular venous distention. No lymph node. CARDIOVASCULAR: S1, S2. RESPIRATORY: Breath sounds diminished in the bases. Bilateral scattered rhonchi. ABDOMEN: Soft, nontender. No mass. LEGS: No edema. NERVOUS SYSTEM: No focal deficits. LABORATORY DATA: Chest x-ray showing possible left lower lobe pneumonia. WBC 9.8, hemoglobin 32.7, ABGs noted. ASSESSMENT: 1. Chronic obstructive pulmonary disease acute exacerbation with possibly left lower pneumonia, possibly gram-negative. 2. Right-sided chest pain possibly musculoskeletal. 3. Change in mental status, possible metabolic encephalopathy multifactorial. 4. Acute on chronic hypercarbic respiratory failure. 5. History of ETOH. 6. History of nicotine dependence. 7. History of asthma and chronic obstructive pulmonary disease. 8. History of congestive heart failure. 9. History of hypertension. 10.History of chronic liver disease. 11.Possible mild acute renal failure. 12.Right traumatic hemopneumothorax. 13.History of alcohol. 14.History of delirium tremens. 15.History of MRSA. 16.History of anxiety. RECOMMENDATIONS: Recommend to continue current management and symptomatic treatment. We will monitor the patient closely in ICU. Intensive bronchodilator treatment and antibiotics. Otherwise I would also recommend closely monitor the creatinine also. Otherwise I would also recommend a D-dimer, if elevated I would recommend a V/Q scan. Closely follow with Pulmonary. Otherwise I would cut down the dose of methadone. The patient has multiple complex medical issues. We will continue to offer the symptomatic treatment. Further recommendations to follow. Avoid nephrotoxic medications. MMROWENAL / IJN: [id number] / BLU
[2017-12-16] MEDS: methylPREDNISolone SOD SUCCI 125 MG/2 ML VIAL IV SCH ×2 (18:49→23:36)
[2017-12-16] MEDS: cefTRIAXone IN SWFI 1,000 MG/10 ML SYRINGE IVP SCH (18:50)
--- NOTE | 2017-12-16 19:45 | P.PN ---
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, altered mental status encephalopathy likely related to EtOH withdrawal 12/16/2017 patient seen eval reexamined during the rounds he has been moved to the ICU given that he was more tremulous developed altered mental status encephalopathy and developed severe degree of oxygen desaturation was transferred patient was placed on BiPAP which she tolerated well has been able to read him off of BiPAP now on nasal cannula, patient remains anxious and tremulous and confused but moving all 4 extremity arterial blood gas from last night and today reviewed significant improvement in metabolic acidosis and respiratory acidosis has been seen and noted, I have lowered down the methadone dose to 15 mg twice a day continue EtOH withdrawal protocol as needed 12/15/2017, patient seen and evaluated examined during the rounds he is slightly tremulous with the complaining of shortness of breath and does have some tightness in the chest was severity of pain and that noted before has improved significantly repeat chest x-ray revealed developing pneumonia patient remains on antibiotics breathing treatments and steroids does have cough which is mostly dry and nonproductive, chest x-ray reviewed revealed presence of bilateral subsegmental infiltrate, labs reviewed white cell count overall remains stable patient has microcytic cytosis likely related to call his him and chronic liver disease, , renal failure functions remains on the higher side with a stage III renal failure was slight worsening compared to yesterday noted him a would recommend to repeat labs tomorrow 12/14/2017, patient seen eval examined during the rounds clinically doing well chest pain on the right side is very minimal shortness of breath is improved cough is better breathing more comfortably. More composed no obvious tremulousness is present, x-ray and laboratory data reviewed Mr. Jesus barroso seen and evaluated examined on third floor this patient is a pleasant 62-year-old male with history of pulmonary sarcoidosis severe COPD emphysema and chronic asthmatic bronchitis, recently hospitalized with the fall and a fracture and had a pneumonia recovered was discharged. Patient developed one to 2 day history of right-sided chest pain for which she presented into the hospital is been having intermittent cough as well also drink very heavily for the last several days. She denies any night sweats fever or chills does have some shortness of breath as well as coughing which is dry and nonproductive with achy pain sensation in the lower right thoracic wall , patient does have a history of prior falls and fracture in the same area, denies any hemoptysis, Objective - Vital Signs Vital signs: Vital Signs Temp 97.7 F 12/16/17 08:00 Pulse 96 12/16/17 19:40 Resp 10 L 12/16/17 14:00 BP 130/65 12/16/17 14:00 Pulse Ox 92 L 12/16/17 15:31 Intake & Output 12/16/17 12/16/17 12/17/17 06:59 18:59 06:59 Intake Total 240 Output Total 1200 925 Balance -960 -925 Weight 102.1 kg Intake: Oral 240 Output: Urine 1200 925 Other: Voiding Method Urinal Urinal # Voids 1 - Exam General: The patient is awake and alert and oriented 1-2 only, in mild respiratory distress, and does not appear acutely ill. He appeared to be intoxicated but pleasant and cooperative Skin: Skin is warm and dry and no rashes or lesions are noted. Eye: Pupils are equal, round and reactive to light, extra-ocular movements are intact; there is normal conjunctiva bilaterally. Ears, nose, mouth and throat: There are moist mucous membranes and no oral lesions. Neck: The neck is supple, there is no tenderness Cardiovascular: There is a regular rate and rhythm. No murmur, rub or gallop is appreciated. Respiratory: To auscultation bilateral, poor air entry is present no raise rhonchi has been noted, mild right-sided thoracic wall tenderness noted in palpation Gastrointestinal: Soft, non-distended, non-tender abdomen without masses or organomegaly noted. There is no rebound or guarding present. Bowel sounds are unremarkable. Back: There is no tenderness to palpation in the midline. There is no obvious deformity. Musculoskeletal: Normal ROM, no tenderness, There is no pedal edema. There is no calf tenderness or swelling. No cords were appreciated. Neurological: CN II-XII intact, Cranial nerves III through XII are intact. There are no obvious motor or sensory deficits. Coordination appears grossly intact. Speech is normal. Psychiatric: Cooperative, appropriate mood & affect, slightly anxious oriented 1-2. He denies any suicidal or homicidal ideation - Labs CBC & Chem 7: 12/16/17 04:47 12/16/17 15:45 Labs: Abnormal Lab Results - Last 24 Hours (Table) 12/15/17 12/15/17 12/15/17 Range/Units 20:23 20:29 21:10 RBC (4.30-5.90) m/uL Hct (39.0-53.0) % MCV (80.0-100.0) fL MCH (25.0-35.0) pg RDW (11.5-15.5) % Neutrophils # (1.3-7.7) k/uL Lymphocytes # (1.0-4.8) k/uL ABG pH 7.19 L* (7.35-7.45) ABG pCO2 63 H (35-45) mmHg ABG pO2 75 L (83-108) mmHg ABG HCO3 (21-25) mmol/L ABG Total CO2 26 H (19-24) mmol/L ABG O2 Saturation 92.6 L (94-97) % Sodium 134 L (137-145) mmol/L BUN 54 H (9-20) mg/dL Creatinine 1.68 H (0.66-1.25) mg/dL Glucose 142 H (74-99) mg/dL POC Glucose (mg/dL) 128 H (75-99) mg/dL Phosphorus 6.7 H (2.5-4.5) mg/dL Magnesium (1.6-2.3) mg/dL AST (17-59) U/L ALT (21-72) U/L 12/16/17 12/16/17 12/16/17 Range/Units 04:47 04:47 04:47 RBC 3.73 L (4.30-5.90) m/uL Hct 38.9 L (39.0-53.0) % MCV 104.3 H (80.0-100.0) fL MCH 36.1 H (25.0-35.0) pg RDW 15.6 H (11.5-15.5) % Neutrophils # 8.1 H (1.3-7.7) k/uL Lymphocytes # 0.9 L (1.0-4.8) k/uL ABG pH (7.35-7.45) ABG pCO2 (35-45) mmHg ABG pO2 (83-108) mmHg ABG HCO3 (21-25) mmol/L ABG Total CO2 (19-24) mmol/L ABG O2 Saturation (94-97) % Sodium 136 L (137-145) mmol/L BUN 52 H (9-20) mg/dL Creatinine 1.40 H (0.66-1.25) mg/dL Glucose 109 H (74-99) mg/dL POC Glucose (mg/dL) (75-99) mg/dL Phosphorus 5.9 H (2.5-4.5) mg/dL Magnesium (1.6-2.3) mg/dL AST 78 H (17-59) U/L ALT 79 H (21-72) U/L 12/16/17 12/16/17 12/16/17 Range/Units 07:39 11:47 15:45 RBC (4.30-5.90) m/uL Hct (39.0-53.0) % MCV (80.0-100.0) fL MCH (25.0-35.0) pg RDW (11.5-15.5) % Neutrophils # (1.3-7.7) k/uL Lymphocytes # (1.0-4.8) k/uL ABG pH 7.30 L (7.35-7.45) ABG pCO2 57 H (35-45) mmHg ABG pO2 77 L (83-108) mmHg ABG HCO3 28 H (21-25) mmol/L ABG Total CO2 30 H (19-24) mmol/L ABG O2 Saturation (94-97) % Sodium (137-145) mmol/L BUN (9-20) mg/dL Creatinine (0.66-1.25) mg/dL Glucose (74-99) mg/dL POC Glucose (mg/dL) 120 H (75-99) mg/dL Phosphorus 5.6 H (2.5-4.5) mg/dL Magnesium 2.4 H (1.6-2.3) mg/dL AST (17-59) U/L ALT (21-72) U/L 12/16/17 Range/Units 17:13 RBC (4.30-5.90) m/uL Hct (39.0-53.0) % MCV (80.0-100.0) fL MCH (25.0-35.0) pg RDW (11.5-15.5) % Neutrophils # (1.3-7.7) k/uL Lymphocytes # (1.0-4.8) k/uL ABG pH (7.35-7.45) ABG pCO2 (35-45) mmHg ABG pO2 (83-108) mmHg ABG HCO3 (21-25) mmol/L ABG Total CO2 (19-24) mmol/L ABG O2 Saturation (94-97) % Sodium (137-145) mmol/L BUN (9-20) mg/dL Creatinine (0.66-1.25) mg/dL Glucose (74-99) mg/dL POC Glucose (mg/dL) 109 H (75-99) mg/dL Phosphorus (2.5-4.5) mg/dL Magnesium (1.6-2.3) mg/dL AST (17-59) U/L ALT (21-72) U/L Assessment and Plan Assessment: Likely EtOH withdrawal Acute hypoxic and hypercapnic respirator failure Stage III renal failure Right-sided chest wall pain with atypical chest pain appears to be related to musculoskeletal pain, improve Acute COPD exacerbation Bilateral lower lobe pneumonia continue antibiotics History of recent binge drinking with the impending alcohol withdrawal and/or or DTs History of chronic pain syndrome on methadone maintenance program History of pulmonary sarcoidosis with history of chronic persistent asthma Mildly elevated first set of cardiac enzymes however subsequent sets are within normal limit Plan: Continue breathing treatments continue BiPAP at nighttime when necessary during the day Gentle rehydration Agree with cardiovascular evaluation DVT and peptic ulcer disease prophylaxis Monitor patient closely for the alcohol withdrawal and impending DTs Continue antibiotics monitor observe clinical course closely would avoid IV steroids for now, further recommendations pending plan of care as per clinical response of the patient, Time with Patient: Greater than 30
[2017-12-16 20:21] LABS: Amphetamine Screen,Urine Not Detected (NotDetected); Barbiturate Screen,Urine Not Detected (NotDetected); Benzodiazepines Screen,Urine Detected (NotDetected); Cocaine Screen,Urine Not Detected (NotDetected); Methadone Screen, Urine Detected (NotDetected); Opiate Screen,Urine Not Detected (NotDetected); Oxycodone Screen, Urine Not Detected (NotDetected); Phencyclidine Screen,Urine Not Detected (NotDetected); Tricyclic Antidepressant,Urine Not Detected (NotDetected); Urn Cannabinoid Scrn Not Detected (NotDetected)
[2017-12-16] MEDS: ALPRAZolam 1 MG TAB PO SCH (21:38)
[2017-12-16] MEDS: METHADONE 5 MG TAB PO SCH (21:38)
[2017-12-16 21:43] LABS: Glucose,Whole Blood 127 mg/dL (75-99)
[2017-12-17] MEDS: NITROGLYCERIN OINT 1 INCH/GM PACKET TOPICAL SCH ×4 (01:12→17:52)
[2017-12-17 05:44] LABS: Basophils % (A) 0 %; Eosinophils # (A) 0.1 k/uL (0-0.7); Eosinophils % (A) 1 %; HCT 39.3 % (39.0-53.0); HGB 12.8 gm/dL (13.0-17.5); Lymphocytes # (A) 0.5 k/uL (1.0-4.8); Lymphocytes % (A) 6 %; MCHC 32.6 g/dL (31.0-37.0); MCV 107.3 fL (80.0-100.0); Macrocytosis Marked; Mean Platelet Volume 7.7; Monocytes # (A) 0.3 k/uL (0-1.0); Monocytes % (A) 3 %; Neutrophils # (A) 7.6 k/uL (1.3-7.7); Neutrophils % (A) 90 %; Platelet Count 160 k/uL (150-450); RBC 3.66 m/uL (4.30-5.90); RDW 15.1 % (11.5-15.5); WBC 8.5 k/uL (3.8-10.6)
[2017-12-17 05:57] LABS: Anion Gap 9 mmol/L; Blood Urea Nitrogen 42 mg/dL (9-20); Calcium 8.6 mg/dL (8.4-10.2); Carbon Dioxide 28 mmol/L (22-30); Chloride 100 mmol/L (98-107); Glucose 150 mg/dL (74-99); Magnesium 2.4 mg/dL (1.6-2.3); Potassium 5.2 mmol/L (3.5-5.1); Sodium 137 mmol/L (137-145)
[2017-12-17] MEDS: methylPREDNISolone SOD SUCCI 125 MG/2 ML VIAL IV SCH ×4 (06:33→22:56)
[2017-12-17 07:13] LABS: Glucose,Whole Blood 152 mg/dL (75-99)
--- NOTE | 2017-12-17 08:00 | XR ---
EXAMINATION TYPE: XR chest 1V DATE OF EXAM: 12/17/2017 COMPARISON: 12/26/2017 INDICATION: Pneumonia COPD previous abnormal chest TECHNIQUE: Single frontal view of the chest is obtained. FINDINGS: The heart size is normal. The pulmonary vasculature is normal. Left lung base infiltrate has improved. Mild residual is not excluded. Clinical correlation and follo w-up is recommended. IMPRESSION: 1. Improving left basilar infiltrate.
[2017-12-17] MEDS: INSULIN ASPART 100 UNIT/ML 1 ML 10 ML VIAL SQ SCH ×4 (08:07→22:59)
[2017-12-17] MEDS: DILTIAZEM CD 180 MG CAP.ER.24H PO SCH (08:08)
[2017-12-17] MEDS: ASPIRIN 325 MG TAB PO SCH (08:08)
[2017-12-17] MEDS: AZITHROMYCIN 500 MG TAB PO SCH (08:08)
[2017-12-17] MEDS: HEPARIN SODIUM,PORCINE 5,000 UNIT/ML 1 ML VIAL SQ SCH ×2 (08:08→22:58)
[2017-12-17] MEDS: PANTOPRAZOLE 40 MG TABLET PO SCH (08:08)
[2017-12-17 08:09] LABS: ABG Base Excess 3.7 mmol/L; ABG HCO3 31 mmol/L (21-25); ABG Oxygen Saturation 93.9 % (94-97); ABG PH 7.24 (7.35-7.45); ABG PO2 75 mmHg (83-108); ABG TCO2 33 mmol/L (19-24)
[2017-12-17] MEDS: cefTRIAXone IN SWFI 1,000 MG/10 ML SYRINGE IVP SCH (08:09)
[2017-12-17 08:11] LABS: ABG PCO2 73 mmHg (35-45)
[2017-12-17] MEDS: IPRATROPIUM-ALBUTEROL 3 ML NEB INHALATION SCH ×4 (08:14→19:32)
[2017-12-17] MEDS: FORMOTEROL FUMARATE 20 MCG/2 ML NEBU INHALATION SCH ×2 (08:14→19:32)
[2017-12-17] MEDS: BUDESONIDE 1 MG/2 ML NEBU INHALATION SCH ×2 (08:14→19:32)
--- NOTE | 2017-12-17 09:42 | P.PN ---
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, altered mental status encephalopathy likely related to EtOH withdrawal 12/17/2017, patient seen eval examined in the ICU he is more somnolent and lethargic but readily arousable though but right back drift into sleep and arterial blood gases stat was performed revealed worsening of severe and acute respiratory acidosis patient has been placed on BiPAP 26/07 advice close monitoring he does have the shortness of breath and borderline hypoxia however improve his of supplemental oxygen with BiPAP for his labs are reviewed potassium is 5.2 rest of the chemistries within normal limit note is made of developing acute hypercapnic respiratory failure, his chest x-ray however revealed improving left basilar infiltrate medications reviewed, we'll continue Rocephin and Zithromax, we'll continue to hold Xanax methadone and benzodiazepine while he is somnolent 12/16/2017 patient seen eval reexamined during the rounds he has been moved to the ICU given that he was more tremulous developed altered mental status encephalopathy and developed severe degree of oxygen desaturation was transferred patient was placed on BiPAP which she tolerated well has been able to read him off of BiPAP now on nasal cannula, patient remains anxious and tremulous and confused but moving all 4 extremity arterial blood gas from last night and today reviewed significant improvement in metabolic acidosis and respiratory acidosis has been seen and noted, I have lowered down the methadone dose to 15 mg twice a day continue EtOH withdrawal protocol as needed 12/15/2017, patient seen and evaluated examined during the rounds he is slightly tremulous with the complaining of shortness of breath and does have some tightness in the chest was severity of pain and that noted before has improved significantly repeat chest x-ray revealed developing pneumonia patient remains on antibiotics breathing treatments and steroids does have cough which is mostly dry and nonproductive, chest x-ray reviewed revealed presence of bilateral subsegmental infiltrate, labs reviewed white cell count overall remains stable patient has microcytic cytosis likely related to call his him and chronic liver disease, , renal failure functions remains on the higher side with a stage III renal failure was slight worsening compared to yesterday noted him a would recommend to repeat labs tomorrow 12/14/2017, patient seen eval examined during the rounds clinically doing well chest pain on the right side is very minimal shortness of breath is improved cough is better breathing more comfortably. More composed no obvious tremulousness is present, x-ray and laboratory data reviewed Mr. Jesus barroso seen and evaluated examined on third floor this patient is a pleasant 62-year-old male with history of pulmonary sarcoidosis severe COPD emphysema and chronic asthmatic bronchitis, recently hospitalized with the fall and a fracture and had a pneumonia recovered was discharged. Patient developed one to 2 day history of right-sided chest pain for which she presented into the hospital is been having intermittent cough as well also drink very heavily for the last several days. She denies any night sweats fever or chills does have some shortness of breath as well as coughing which is dry and nonproductive with achy pain sensation in the lower right thoracic wall , patient does have a history of prior falls and fracture in the same area, denies any hemoptysis, Objective - Vital Signs Vital signs: Vital Signs Temp 98.1 F 12/17/17 08:00 Pulse 85 12/17/17 08:35 Resp 30 H 12/17/17 08:00 BP 148/63 12/17/17 08:00 Pulse Ox 91 L 12/17/17 08:00 Intake & Output 12/16/17 12/17/17 12/17/17 18:59 06:59 18:59 Intake Total 400 350 100 Output Total 925 200 140 Balance -525 150 -40 Weight 103.1 kg Intake: Oral 400 350 100 Output: Urine 925 200 140 Other: Voiding Method Urinal Urinal # Voids 1 1 - Exam General: The patient is awake and alert and oriented 1-2 only, in mild respiratory distress, and does not appear acutely ill. He appeared to be intoxicated but pleasant and cooperative Skin: Skin is warm and dry and no rashes or lesions are noted. Eye: Pupils are equal, round and reactive to light, extra-ocular movements are intact; there is normal conjunctiva bilaterally. Ears, nose, mouth and throat: There are moist mucous membranes and no oral lesions. Neck: The neck is supple, there is no tenderness Cardiovascular: There is a regular rate and rhythm. No murmur, rub or gallop is appreciated. Respiratory: To auscultation bilateral, poor air entry is present no raise rhonchi has been noted, no right-sided thoracic wall tenderness noted in palpation Gastrointestinal: Soft, non-distended, non-tender abdomen without masses or organomegaly noted. There is no rebound or guarding present. Bowel sounds are unremarkable. Back: There is no tenderness to palpation in the midline. There is no obvious deformity. Musculoskeletal: Normal ROM, no tenderness, There is no pedal edema. There is no calf tenderness or swelling. No cords were appreciated. Neurological: CN II-XII intact, Cranial nerves III through XII are intact. There are no obvious motor or sensory deficits. Coordination appears grossly intact. Speech is normal. Psychiatric: Cooperative, appropriate mood & affect, slightly anxious oriented 1-2. He denies any suicidal or homicidal ideation - Labs CBC & Chem 7: 12/17/17 05:03 12/17/17 05:03 Labs: Abnormal Lab Results - Last 24 Hours (Table) 12/16/17 12/16/17 12/16/17 Range/Units 11:47 14:25 15:45 RBC (4.30-5.90) m/uL Hgb (13.0-17.5) gm/dL MCV (80.0-100.0) fL Lymphocytes # (1.0-4.8) k/uL ABG pH (7.35-7.45) ABG pCO2 (35-45) mmHg ABG pO2 (83-108) mmHg ABG HCO3 (21-25) mmol/L ABG Total CO2 (19-24) mmol/L ABG O2 Saturation (94-97) % Potassium (3.5-5.1) mmol/L BUN (9-20) mg/dL Glucose (74-99) mg/dL POC Glucose (mg/dL) 120 H (75-99) mg/dL Phosphorus 5.6 H (2.5-4.5) mg/dL Magnesium 2.4 H (1.6-2.3) mg/dL Urine Methadone Screen Detected H (NotDetected) U Benzodiazepines Scrn Detected H (NotDetected) 12/16/17 12/16/17 12/17/17 Range/Units 17:13 21:37 05:03 RBC 3.66 L (4.30-5.90) m/uL Hgb 12.8 L (13.0-17.5) gm/dL MCV 107.3 H (80.0-100.0) fL Lymphocytes # 0.5 L (1.0-4.8) k/uL ABG pH (7.35-7.45) ABG pCO2 (35-45) mmHg ABG pO2 (83-108) mmHg ABG HCO3 (21-25) mmol/L ABG Total CO2 (19-24) mmol/L ABG O2 Saturation (94-97) % Potassium (3.5-5.1) mmol/L BUN (9-20) mg/dL Glucose (74-99) mg/dL POC Glucose (mg/dL) 109 H 127 H (75-99) mg/dL Phosphorus (2.5-4.5) mg/dL Magnesium (1.6-2.3) mg/dL Urine Methadone Screen (NotDetected) U Benzodiazepines Scrn (NotDetected) 12/17/17 12/17/17 12/17/17 Range/Units 05:03 07:10 08:07 RBC (4.30-5.90) m/uL Hgb (13.0-17.5) gm/dL MCV (80.0-100.0) fL Lymphocytes # (1.0-4.8) k/uL ABG pH 7.24 L (7.35-7.45) ABG pCO2 73 H* (35-45) mmHg ABG pO2 75 L (83-108) mmHg ABG HCO3 31 H (21-25) mmol/L ABG Total CO2 33 H (19-24) mmol/L ABG O2 Saturation 93.9 L (94-97) % Potassium 5.2 H (3.5-5.1) mmol/L BUN 42 H (9-20) mg/dL Glucose 150 H (74-99) mg/dL POC Glucose (mg/dL) 152 H (75-99) mg/dL Phosphorus 5.0 H (2.5-4.5) mg/dL Magnesium 2.4 H (1.6-2.3) mg/dL Urine Methadone Screen (NotDetected) U Benzodiazepines Scrn (NotDetected) Assessment and Plan Assessment: Likely EtOH withdrawal Acute hypoxic and hypercapnic respirator failure Stage III renal failure Right-sided chest wall pain with atypical chest pain appears to be related to musculoskeletal pain, improve Acute COPD exacerbation Bilateral lower lobe pneumonia continue antibiotics History of recent binge drinking with the impending alcohol withdrawal and/or or DTs History of chronic pain syndrome on methadone maintenance program History of pulmonary sarcoidosis with history of chronic persistent asthma Mildly elevated first set of cardiac enzymes however subsequent sets are within normal limit Plan: Continue breathing treatments continue BiPAP at nighttime when necessary during the day Avoid narcotics and benzodiazepine while he is the somnolent and/or lethargic Gentle rehydration Agree with cardiovascular evaluation DVT and peptic ulcer disease prophylaxis Monitor patient closely for the alcohol withdrawal and impending DTs Continue antibiotics monitor observe clinical course closely would avoid IV steroids for now, further recommendations pending plan of care as per clinical response of the patient, Patient will need a sitter to monitor and ensure continuation of BiPAP Time with Patient: Greater than 30
[2017-12-17] MEDS: METHADONE 5 MG TAB PO SCH ×2 (10:49→22:49)
[2017-12-17] MEDS: THIAMINE 100 MG TAB PO SCH ×2 (12:42→17:53)
[2017-12-17 13:57] LABS: Glucose,Whole Blood 152 mg/dL (75-99)
--- NOTE | 2017-12-17 15:20 | PN ---
PROGRESS NOTE DATE OF SERVICE: 12/17/2017. This 62-year-old gentleman admitted with chest pain, COPD exacerbation also had change in mental status. Patient had acute hypoxic hypercarbic respiratory failure, which was monitored in ICU. Subsequently transferred to telemetry floor at this time. The patient also has significant history of EtOH. The patient is also being watched for CIWA protocol as well. Dr. Garza is following the patient closely. Most recent chest x- ray showed improving left basilar infiltrate. PAST MEDICAL HISTORY: Reviewed. REVIEW OF SYSTEMS: CARDIOVASCULAR: No angina. RESPIRATORY: As mentioned earlier. GI: As mentioned. : No dysuria. NERVOUS SYSTEM: As mentioned earlier. CURRENT MEDICATIONS: Reviewed and include: 1. [place] 5 mg q.6h p.r.n. 2. DuoNeb q.i.d. and p.r.n. 3. Xanax 1 mg q.h.s. 4. Aspirin 325 mg p.o. daily. 5. Zithromax 500 mg. 6. Pulmicort 1 mg b.i.d. 7. Rocephin 1 g daily. 8. Cardizem CD 180 mg daily. 9. Perforomist 1 b.i.d. 10.Heparin 5000 subcu b.i.d. 11.Ativan 1 mg q.2h p.r.n. 12.Zoloft 50 mg p.o. b.i.d. 13.Solu-Medrol 60 IV q.6h. 14.Narcan p.r.n. 15.Nitrostat 0.4 sublingual. 16.Nitro-Bid ointment. 17.Protonix 40 mg daily. 18.Vitamin B1 100 mg p.o. daily. PHYSICAL EXAM: Patient is alert, oriented x3. Pulse 93, blood pressure 130/60, respirations 16, temperature normal, pulse ox 93% on 6 L. HEENT: Conjunctivae normal. Oral mucosa moist. NECK: No jugular venous distention. No carotid bruit. No lymph node enlargement. CARDIOVASCULAR: S1, S2. No S3, no S4. RESPIRATORY: Breath sounds diminished in the bases. A few scattered rhonchi. Expiratory wheezing and crackles also. ABDOMEN: Soft, nontender. No mass palpable. LEGS: No edema, no swelling. NERVOUS SYSTEM: Higher functions as mentioned earlier. Moves all four limbs. No focal motor deficits. LYMPHATICS: No lymphadenopathy in the neck, axillae, groin. SKIN: No ulcer, rash or bleeding. LABS: WBC 8.2, hemoglobin 12.8, sodium 137, potassium 5.2, magnesium is 2.4. ASSESSMENT: 1. Chronic obstructive pulmonary disease acute exacerbation with possible left lower lobe pneumonia possibly gram-negative with acute hypoxic hypercarbic respiratory failure. 2. Right-sided chest pain possibly musculoskeletal. 3. Change in mental status possible metabolic encephalopathy multifactorial. 4. Acute on chronic hypoxic hypercarbic respiratory failure. 5. History of ETOH. 6. History of nicotine dependence. 7. History of chronic obstructive pulmonary disease. 8. History of congestive heart failure. 9. History hypertension. 10.History of chronic liver disease. 11.Possible mild acute renal failure. 12.Right traumatic pneumothorax history. 13.History of alcohol. 14.History of delirium tremens. 15.History of Methicillin-resistant Staphylococcus aureus. 16.History of anxiety. RECOMMENDATIONS AND DISCUSSION: I recommend to continue current management and symptomatic treatment. I recommend optimize the bronchodilator treatment. Pain medications to be adjusted according to the patient's level of sensorium. The patient is not to receive any pain medications or sedatives. The patient is drowsy. Otherwise the patient is still on IV steroids high dose and Dr. Garza is following the patient closely. Methadone dose has been cut down. Guarded prognosis because of multiple complex medical issues. Further recommendations to follow. MMODL / IJN: [id number] /
[2017-12-17 16:47] LABS: Glucose,Whole Blood 192 mg/dL (75-99)
[2017-12-17 20:58] LABS: Glucose,Whole Blood 125 mg/dL (75-99)
[2017-12-17] MEDS: ALPRAZolam 1 MG TAB PO SCH (22:51)
[2017-12-18] MEDS: methylPREDNISolone SOD SUCCI 125 MG/2 ML VIAL IV SCH ×2 (05:59→17:23)
[2017-12-18] MEDS: NITROGLYCERIN OINT 1 INCH/GM PACKET TOPICAL SCH ×4 (06:00→19:01)
[2017-12-18 06:41] LABS: Glucose,Whole Blood 121 mg/dL (75-99)
[2017-12-18] MEDS: PANTOPRAZOLE 40 MG TABLET PO SCH (06:41)
[2017-12-18] MEDS ORDERED: HALOPERIDOL LACTATE 5 MG/ML 1 ML VIAL IM PRN (07:08)
[2017-12-18] MEDS: BUDESONIDE 1 MG/2 ML NEBU INHALATION SCH ×2 (08:58→21:31)
[2017-12-18] MEDS: IPRATROPIUM-ALBUTEROL 3 ML NEB INHALATION SCH ×4 (08:58→21:31)
[2017-12-18] MEDS: FORMOTEROL FUMARATE 20 MCG/2 ML NEBU INHALATION SCH ×2 (08:58→21:31)
[2017-12-18] MEDS: DILTIAZEM CD 180 MG CAP.ER.24H PO SCH (09:14)
[2017-12-18] MEDS: ASPIRIN 325 MG TAB PO SCH (09:14)
[2017-12-18] MEDS: HEPARIN SODIUM,PORCINE 5,000 UNIT/ML 1 ML VIAL SQ SCH ×2 (09:14→21:20)
[2017-12-18] MEDS: AZITHROMYCIN 500 MG TAB PO SCH (09:14)
[2017-12-18] MEDS: METHADONE 5 MG TAB PO SCH ×2 (09:17→21:19)
[2017-12-18] MEDS: INSULIN ASPART 100 UNIT/ML 1 ML 10 ML VIAL SQ SCH ×4 (10:48→21:55)
[2017-12-18] MEDS: cefTRIAXone IN SWFI 1,000 MG/10 ML SYRINGE IVP SCH (10:49)
[2017-12-18 11:50] LABS: Glucose,Whole Blood 110 mg/dL (75-99)
--- NOTE | 2017-12-18 12:30 | P.PN ---
Subjective Progress Note Date: 12/18/17 [facility] is covering for Dr. Garza. Patient is being seen examined on rounds, he is seen sitting up in bed. This patient is here for acute COPD exacerbation, tracheobronchitis and she taking and EtOH withdrawal. Patient is seen resting up in bed with safety center at bedside. He is currently on 5 L of supplemental oxygen via nasal cannula, continues to have shortness of breath with exertion and activity. Has a chronic congested cough. He continues on CIWA protocol for DTs. Did has episodes of letheragy yesterday so his xanax, methadone and benzos were on hold. He did wear his bipap last night. He was downgraded from ICU yesterday. All labs and reports have been reviewed. He is hemodynamically stable at this time. Objective - Vital Signs Vital signs: Vital Signs Temp 97.2 F L 12/18/17 04:00 Pulse 90 12/18/17 12:02 Resp 16 12/18/17 12:02 BP 149/71 12/18/17 08:00 Pulse Ox 93 L 12/18/17 08:00 Intake & Output 12/17/17 12/18/17 12/18/17 18:59 06:59 18:59 Intake Total 150 Output Total 740 Balance -590 Intake: Oral 150 Output: Urine 140 Urine/Stool Mix 600 Other: Voiding Method Urinal Urinal # Voids 1 # Bowel Movements 1 - Exam GENERAL EXAM: Alert, comfortable in no apparent distress. HEAD: Normocephalic. EYES: Normal reaction of pupils, equal size. NOSE: Clear with pink turbinates. THROAT: No erythema or exudates. NECK: No masses, no JVD. CHEST: No chest wall deformity. LUNGS: Patient noted to have poor air in tree with coarse and rhonchorous breath sounds throughout.. CVS: S1 and S2 normal with no audible mumurs, regular rhythm. ABDOMEN: No hepatosplenomegaly, normal bowel sounds, no guarding or rigidity. EXTREMITIES: No edema noted, pedal pulses palpable. CENTRAL NERVOUS SYSTEM: No focal deficits, tone is normal in all 4 extremities. - Labs CBC & Chem 7: 12/17/17 05:03 12/17/17 05:03 Labs: Abnormal Lab Results - Last 24 Hours (Table) 12/17/17 12/17/17 12/17/17 Range/Units 13:37 16:45 20:55 POC Glucose (mg/dL) 152 H 192 H 125 H (75-99) mg/dL 12/18/17 12/18/17 Range/Units 06:11 11:36 POC Glucose (mg/dL) 121 H 110 H (75-99) mg/dL Assessment and Plan Assessment: Assessment EtOH withdrawal, with DTs Acute hypoxic and hypercapnic respirator failure Stage III renal failure Right-sided chest wall pain with atypical chest pain appears to be related to musculoskeletal pain, improve Acute COPD exacerbation Bilateral lower lobe pneumonia continue antibiotics History of recent binge drinking with the impending alcohol withdrawal and/or or DTs History of chronic pain syndrome on methadone maintenance program History of pulmonary sarcoidosis with history of chronic persistent asthma Mildly elevated first set of cardiac enzymes however subsequent sets are within normal limit Plan Continue breathing treatments continue BiPAP at nighttime when necessary during the day Avoid narcotics and benzodiazepine while he is the somnolent and/or lethargic Gentle rehydration Steroid taper Agree with cardiovascular evaluation DVT and peptic ulcer disease prophylaxis Monitor patient closely for the alcohol withdrawal and impending DTs Continue antibiotics monitor observe clinical course closely further recommendations pending plan of care as per clinical response of the patient, Patient will need a sitter to monitor and ensure continuation of BiPAP I performed an examination of the patient and discussed their management with the nurse practitioner. I have reviewed the nurse practitioner's note and agree with the documented findings and plan of care.
[2017-12-18 16:48] LABS: Glucose,Whole Blood 121 mg/dL (75-99)
--- NOTE | 2017-12-18 18:21 | PN ---
PROGRESS NOTE DATE OF SERVICE: 12/18/17 The patient is sitting up in his bed and eating lunch at the time of examination. Claims he wants to be discharged home because he was told that his dog had . Pulmonary recommendations discussed with the patient. Claims he is not happy about staying another night. The patient is admitted with acute exacerbation COPD and ETOH withdrawal. VITAL SIGNS: Temp 97.2, pulse 90, respirations 16, blood pressure 149/71, O2 saturation 93%. CONSTITUTIONAL: Patient is awake, alert, mild respiratory distress. HEENT: Atraumatic, normocephalic. Pupils equal and react to light. Extraocular movements intact. Buccal mucosa is fair. NECK: Supple. No goiter, lymphadenopathy. JVD is negative. No carotid bruit heard. LUNGS: Decreased breath sounds. Decreased air entry. Scattered rhonchi and wheezing. HEART: Regular rate and rhythm without murmurs, gallop rhythm. ABDOMEN: Soft, nontender, nondistended. Bowel sounds positive. EXTREMITIES: No edema, clubbing or cyanosis. NEUROLOGICAL EXAMINATION: Patient is awake, alert, oriented x3. No gross motor or sensory deficit. LAB: CBC: White blood count 8.5, hemoglobin 12.8, hematocrit 39.3, platelets 160. Chemical profile: Sodium 137, potassium 5.2, chloride 100, bicarb 28, BUN 42, creatinine 0.9, glucose 150. REVIEW OF SYSTEM: CARDIOVASCULAR: No angina. RESPIRATORY: Shortness of breath as described above. GI: No nausea, vomiting, diarrhea. GENITOURINARY: No dysuria. NERVOUS SYSTEM: Awake, alert, oriented x3. CURRENT MEDICATIONS: 1. [place] 5 mg q.6 hours p.r.n. 2. DuoNeb q.i.d. and p.r.n. 3. Xanax 1 mg q.h.s. 4. Aspirin 325 daily. 5. Zithromax 500 mg daily. 6. Pulmicort 1 inhalation b.i.d. 7. Rocephin 1 g daily. 8. Cardizem CD 180 mg daily. 9. Perforomist 1 inhalation b.i.d. 10.Heparin 5000 subcu b.i.d. 11.Ativan 1 mg q.2 hours p.r.n. 12.Zoloft 50 mg b.i.d. 13.Solu-Medrol 60 mg IV q.6 hours. 14.Narcan p.r.n. 15.Nitro-Bid ointment as prescribed. 16.Protonix 40 mg daily. 17.Vitamin B1 100 mg daily. ASSESSMENT: 1. Severe acute exacerbation chronic obstructive pulmonary disease. 2. Left lower lobe pneumonia. 3. Acute hypoxic and hypercapnic respiratory failure. 4. Right-sided chest pain, possibly musculoskeletal. 5. Mental status changes, possibly secondary to metabolic encephalopathy. 6. ETOH, possible ETOH withdrawal. 7. Nicotine abuse. PLAN: Continue patient on the breathing treatments. The patient is supposed to have BiPAP at night. Avoid narcotics and benzodiazepine as per Pulmonary recommendations. Continue with gentle hydration. We will start tapering patient's steroids to 60 mg b.i.d. and then switch to oral if remains stable. Continue with DVT and GI prophylaxis. Monitor closely for alcohol withdrawal and impending DTs. Possible discharge in next 24-48 hours. MMODL / IJN: [id number] /
[2017-12-18] MEDS: THIAMINE 100 MG TAB PO SCH ×2 (19:00→20:23)
[2017-12-18] MEDS: ALPRAZolam 1 MG TAB PO SCH (21:19)
[2017-12-18 21:26] LABS: Glucose,Whole Blood 115 mg/dL (75-99)
[2017-12-19] MEDS: methylPREDNISolone SOD SUCCI 125 MG/2 ML VIAL IV SCH ×3 (02:05→17:39)
[2017-12-19] MEDS: NITROGLYCERIN OINT 1 INCH/GM PACKET TOPICAL SCH ×4 (02:07→18:36)
[2017-12-19] MEDS: PANTOPRAZOLE 40 MG TABLET PO SCH (05:19)
[2017-12-19 05:59] LABS: Glucose,Whole Blood 118 mg/dL (75-99)
[2017-12-19] MEDS: INSULIN ASPART 100 UNIT/ML 1 ML 10 ML VIAL SQ SCH ×4 (06:00→21:25)
[2017-12-19 06:53] LABS: Basophils % (A) 0 %; Eosinophils # (A) 0.1 k/uL (0-0.7); Eosinophils % (A) 1 %; HCT 38.6 % (39.0-53.0); HGB 12.5 gm/dL (13.0-17.5); Lymphocytes # (A) 1.1 k/uL (1.0-4.8); Lymphocytes % (A) 12 %; MCH 34.8 pg (25.0-35.0); MCHC 32.5 g/dL (31.0-37.0); MCV 107.1 fL (80.0-100.0); Macrocytosis Marked; Monocytes # (A) 0.9 k/uL (0-1.0); Monocytes % (A) 9 %; Neutrophils # (A) 7.2 k/uL (1.3-7.7); Neutrophils % (A) 77 %; Platelet Count 162 k/uL (150-450); RDW 14.8 % (11.5-15.5); WBC 9.3 k/uL (3.8-10.6)
[2017-12-19 07:14] LABS: Anion Gap 8 mmol/L; Blood Urea Nitrogen 32 mg/dL (9-20); Calcium 8.6 mg/dL (8.4-10.2); Carbon Dioxide 33 mmol/L (22-30); Chloride 100 mmol/L (98-107); Glucose 95 mg/dL (74-99); Magnesium 2.6 mg/dL (1.6-2.3); Phosphorus 3.2 mg/dL (2.5-4.5); Potassium 4.4 mmol/L (3.5-5.1); Sodium 141 mmol/L (137-145)
[2017-12-19] MEDS: FORMOTEROL FUMARATE 20 MCG/2 ML NEBU INHALATION SCH (07:36)
[2017-12-19] MEDS: IPRATROPIUM-ALBUTEROL 3 ML NEB INHALATION SCH ×4 (07:36→19:21)
[2017-12-19] MEDS: BUDESONIDE 1 MG/2 ML NEBU INHALATION SCH (07:36)
[2017-12-19] MEDS: DILTIAZEM CD 180 MG CAP.ER.24H PO SCH (08:40)
[2017-12-19] MEDS: AZITHROMYCIN 500 MG TAB PO SCH (08:40)
[2017-12-19] MEDS: ASPIRIN 325 MG TAB PO SCH (08:40)
[2017-12-19] MEDS: HEPARIN SODIUM,PORCINE 5,000 UNIT/ML 1 ML VIAL SQ SCH ×2 (08:40→21:26)
[2017-12-19] MEDS: METHADONE 5 MG TAB PO SCH ×2 (08:43→21:24)
[2017-12-19] MEDS: cefTRIAXone IN SWFI 1,000 MG/10 ML SYRINGE IVP SCH (11:02)
[2017-12-19 11:28] LABS: Glucose,Whole Blood 116 mg/dL (75-99)
--- NOTE | 2017-12-19 16:22 | PN ---
PROGRESS NOTE DATE OF SERVICE: 12/19/2017 This patient has been hemodynamically stable. He is awake but not completely alert. He has some occasional shortness of breath episodes with some wheezing. On physical examination his blood pressure is 132/70, respiratory rate of 18, pulse rate of 80, temperature 98.1. Oxygen saturation on nasal cannula oxygen is 92%. HEENT is unremarkable. Chest reveals a faint expiratory wheeze. Cardiovascular system reveals an S1, S2. Abdomen is soft. There is no pedal edema. IMPRESSION AT THIS TIME: 1. Acute alcohol intoxication. 2. Chronic obstructive pulmonary disease with exacerbation. 3. Acute respiratory failure. 4. Musculoskeletal chest pain. 5. Pneumonia with possible aspiration etiology to pneumonia. Continue antibiotics, aerosolized steroids, bronchodilators, vitamins. Increase his activity level. Depending on how he does, we shall make further changes to his care. CAYDEN / MARIE: [id number] /
[2017-12-19 17:14] LABS: Glucose,Whole Blood 105 mg/dL (75-99)
--- NOTE | 2017-12-19 17:16 | PN ---
PROGRESS NOTE DATE OF SERVICE: 12/19/2017 Patient is sitting up in bed, claims he has he is ready to go home. Discharge orders were done. The patient is sitting up, but continues to doze off while talking. His vital signs: Temperature 98.1, pulse, respiration 18, blood pressure 132/70, O2 saturation 92% on FiO2 of 50%. HEENT: Atraumatic, normocephalic. Pupils equal and reactive to light. Extraocular movements intact. Buccal mucosa is fair. Neck is supple. No goiter or lymphadenopathy. JVD is negative. No carotid bruit heard. LUNGS: Decreased breath sounds with scattered rhonchi and decreased air entry. Heart is regular rate and rhythm without any murmurs, gallop rhythm. Abdomen is soft and nontender, nondistended. Bowel sounds positive. EXTREMITIES: No edema, clubbing or cyanosis. CBC: White blood count of 9.3, hemoglobin 12.5, hematocrit 38.6, and platelet count of 162. Chemical profile: Sodium 141, potassium 4.4, chloride 100, bicarb 33, BUN of 32, creatinine 0.8, glucose of 116. ASSESSMENT: 1. Acute hypoxemic and hypercapnic respiratory failure. The patient has somewhat altered mentation. 2. Severe acute exacerbation chronic obstructive pulmonary disease. 3. Left lower lobe pneumonia. 4. Right-sided chest pain, possibly musculoskeletal. 5. EtOH withdrawal, clinically stable. 6. Stage 3 chronic kidney disease. 7. History of chronic pain syndrome on methadone maintenance program. Plan is to hold the patient's discharge, put patient back on BiPAP. Will obtain ABGs immediately and further recommendations pending the results. Continue with bronchodilator aerosol treatments. Continue with the steroids. The patient remains on antibiotic therapy. Continue with DVT and GI prophylaxis. Will have Pulmonary see the patient again and like indicated above, discharge will be put on hold and further recommendations pending workup. MMODL / IJN: [id number] /
[2017-12-19 17:22] LABS: ABG Base Excess 7.6 mmol/L; ABG HCO3 34 mmol/L (21-25); ABG PCO2 58 mmHg (35-45); ABG PH 7.38 (7.35-7.45); ABG PO2 139 mmHg (83-108)
[2017-12-19] MEDS: THIAMINE 100 MG TAB PO SCH ×2 (17:39→18:35)
[2017-12-19 20:55] LABS: Glucose,Whole Blood 103 mg/dL (75-99)
[2017-12-19] MEDS: ALPRAZolam 1 MG TAB PO SCH (21:24)
[2017-12-19] MEDS: HYDROcodone/APAP 5-325MG 1 EACH TAB PO PRN (22:44)
[2017-12-20] MEDS: BUDESONIDE 1 MG/2 ML NEBU INHALATION SCH ×3 (00:44→21:08)
[2017-12-20] MEDS: FORMOTEROL FUMARATE 20 MCG/2 ML NEBU INHALATION SCH ×3 (00:44→21:08)
[2017-12-20] MEDS: NITROGLYCERIN OINT 1 INCH/GM PACKET TOPICAL SCH ×4 (01:34→16:32)
[2017-12-20] MEDS: methylPREDNISolone SOD SUCCI 125 MG/2 ML VIAL IV SCH ×3 (01:34→16:31)
[2017-12-20 05:50] LABS: Glucose,Whole Blood 111 mg/dL (75-99)
[2017-12-20] MEDS: INSULIN ASPART 100 UNIT/ML 1 ML 10 ML VIAL SQ SCH ×4 (05:54→21:48)
[2017-12-20] MEDS: PANTOPRAZOLE 40 MG TABLET PO SCH (05:54)
[2017-12-20 06:30] LABS: Basophils # (A) 0.1 k/uL (0-0.2); Basophils % (A) 1 %; Eosinophils # (A) 0.2 k/uL (0-0.7); Eosinophils % (A) 2 %; HCT 41.2 % (39.0-53.0); HGB 13.8 gm/dL (13.0-17.5); Lymphocytes # (A) 2.6 k/uL (1.0-4.8); Lymphocytes % (A) 27 %; MCH 36.2 pg (25.0-35.0); MCHC 33.4 g/dL (31.0-37.0); MCV 108.2 fL (80.0-100.0); Macrocytosis Marked; Mean Platelet Volume 7.3; Monocytes # (A) 0.8 k/uL (0-1.0); Monocytes % (A) 9 %; Neutrophils # (A) 5.8 k/uL (1.3-7.7); Neutrophils % (A) 60 %; Platelet Count 156 k/uL (150-450); RBC 3.81 m/uL (4.30-5.90); RDW 15.3 % (11.5-15.5); WBC 9.6 k/uL (3.8-10.6)
[2017-12-20 06:40] LABS: Magnesium 2.4 mg/dL (1.6-2.3); Phosphorus 4.1 mg/dL (2.5-4.5)
[2017-12-20 07:58] LABS: Glucose,Whole Blood 122 mg/dL (75-99)
[2017-12-20] MEDS: IPRATROPIUM-ALBUTEROL 3 ML NEB INHALATION SCH ×4 (08:04→21:08)
[2017-12-20 08:18] LABS: ABG PH 7.26 (7.35-7.45)
[2017-12-20 08:19] LABS: ABG Base Excess 7.3 mmol/L; ABG HCO3 14 mmol/L (21-25); ABG PCO2 85 mmHg (35-45); ABG PO2 68 mmHg (83-108); ABG TCO2 17 mmol/L (19-24)
[2017-12-20 09:23] LABS: ABG PH 7.25 (7.35-7.45)
[2017-12-20 09:24] LABS: ABG HCO3 38 mmol/L (21-25); ABG PCO2 90 mmHg (35-45); ABG PO2 179 mmHg (83-108)
[2017-12-20] MEDS ORDERED: NALOXONE 0.4 MG/ML 1 ML VIAL IM STA ×2 (09:26→18:45)
[2017-12-20] MEDS: cefTRIAXone IN SWFI 1,000 MG/10 ML SYRINGE IVP SCH (11:34)
[2017-12-20] MEDS: HEPARIN SODIUM,PORCINE 5,000 UNIT/ML 1 ML VIAL SQ SCH ×2 (12:11→21:49)
[2017-12-20 12:30] LABS: Glucose,Whole Blood 96 mg/dL (75-99)
[2017-12-20 13:29] LABS: ABG PCO2 75 mmHg (35-45); ABG PH 7.32 (7.35-7.45); ABG PO2 90 mmHg (83-108)
[2017-12-20 13:29] LABS: AST 711 U/L (17-59); Albumin 3.4 g/dL (3.5-5.0); Alkaline Phosphatase 43 U/L (38-126); Anion Gap 5 mmol/L; Blood Urea Nitrogen 24 mg/dL (9-20); Calcium 8.3 mg/dL (8.4-10.2); Carbon Dioxide 39 mmol/L (22-30); Chloride 96 mmol/L (98-107); Glucose 104 mg/dL (74-99); Potassium 4.5 mmol/L (3.5-5.1); Sodium 140 mmol/L (137-145); Total Bilirubin 0.9 mg/dL (0.2-1.3); Total Protein 6.1 g/dL (6.3-8.2)
[2017-12-20 13:30] LABS: ABG Base Excess 9.3 mmol/L; ABG HCO3 38 mmol/L (21-25)
--- NOTE | 2017-12-20 13:34 | XR ---
EXAMINATION TYPE: XR abdomen 1V DATE OF EXAM: 12/20/2017 1:17 PM CLINICAL HISTORY: Mental status changes TECHNIQUE: Single supine image of the abdomen is obtained. COMPARISON: None. FINDINGS: Scattered gas is seen in non-distended small bowel loops. Gas and fecal material is seen in non-distended colon. There is no visceromegaly or abnormal calcification appreciated. Evaluation for pneumoperitoneum is limited on the supine images. Lung bases are not visualized. Serpiginous sclerot ic geographic lesion within the right femoral head may represent early avascular necrosis. Femoral he ads maintain a rounded contours bilaterally. Multiple linear radiodense foci within the right inguina l region may be external to the patient or sequela of prior surgical intervention. IMPRESSION: 1. Nonobstructive bowel gas pattern. 2. 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
[2017-12-20 13:36] LABS: ALT 1130 U/L (21-72)
--- NOTE | 2017-12-20 13:37 | CT ---
EXAMINATION TYPE: CT brain wo con DATE OF EXAM: 12/20/2017 COMPARISON: 05/01/2017 HISTORY: Altered mental changes CT DLP: 1036 mGycm Automated exposure control for dose reduction was used. TECHNIQUE: Standard unenhanced CT of the brain was performed. FINDINGS: There is no acute intracranial hemorrhage or midline shift identified. There is diffuse v entricular and sulcal prominence consistent with diffuse age-related cerebral atrophy. There is low- attenuation in the periventricular white matter consistent with chronic small vessel ischemic change. The globes are intact . Left ocular lenses surgically absent. There is mild atherosclerosis of the intracranial vasculature. Chronic mucoperiosteal thickening is seen of the left maxillary sinus and p eriosteal thickening of the right maxillary sinus with mild mucosal thickening in the sphenoid and et hmoid sinuses. Frontal sinuses are well aerated as are the mastoid air cells. Calvarium is intact. IMPRESSION: 1. No acute intracranial hemorrhage or midline shift. 2. Diffuse age-related cerebral atrophy and nonspecific white matter change, most commonly on the bas is of chronic microangiopathy. 3. Acute on chronic paranasal sinus disease, mild in degree.
[2017-12-20] MEDS ORDERED: LACTULOSE 20 GM/30 ML CUP PO ONE (13:45)
--- NOTE | 2017-12-20 15:26 | P.CNNES ---
History of Present Illness Consult date: 12/20/17 Reason for Consult: Patient with altered mental status and hypoxemia. Review of Systems Constitutional: Denies chills, Denies fever Eyes: denies blurred vision, denies pain Ears, nose, mouth and throat: Denies headache, Denies sore throat Cardiovascular: Denies chest pain, Denies shortness of breath Respiratory: Denies cough Gastrointestinal: Denies abdominal pain, Denies diarrhea, Denies nausea, Denies vomiting Musculoskeletal: Denies myalgias Integumentary: Denies pruritus, Denies rash Neurological: Reports balance difficulties, Reports change in mentation, Reports confusion, Reports memory loss, Denies numbness, Denies weakness Psychiatric: Denies anxiety, Denies depression Endocrine: Denies fatigue, Denies weight change Past Medical History Past Medical History: Asthma, Chest Pain / Angina, Heart Failure, COPD, Hypertension, Liver Disease, Pneumonia Additional Past Medical History / Comment(s): COPD, recent hospitalization with fall and a small right-sided pneumothorax, traumatic seventh through ninth nondisplaced rib fractures, alcoholism, previous history of delirium tremens, liver 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 states his lung Past Surgical History: Orthopedic Surgery Additional Past Surgical History / Comment(s): neck fracture, Past Anesthesia/Blood Transfusion Reactions: No Reported Reaction Smoking Status: Former smoker - Past Family History Father Family Medical History: Congestive Heart Failure (CHF), Coronary Artery Disease (CAD), Hypertension Mother Family Medical History: Cancer, Hypertension Additional Family Medical History / Comment(s): Melanoma on nose. Medications and Allergies Home Medications Medication Instructions Recorded Confirmed Type Budesonide-Formot 160-4.5 Mcg 2 puff INHALATION RT-BID #1 inhaler 08/08/1712/13 Rx [Symbicort 160-4.5 Mcg Inhaler] Diltiazem Cd [Cardizem CD] 180 mg PO DAILY #24 cap.er.24h 08/08/17 12/13/17 Rx ALPRAZolam [Xanax] 1 mg PO HS 12/13/17 12/13/17 History Methadone [Dolophine] 30 mg PO BID 12/13/17 12/13/17 History Cefuroxime Axetil [Ceftin] 500 mg PO BID #10 tab 12/14/17 Rx Ipratropium-Albuterol Nebulize 3 ml INHALATION RT-QID #300 12/14/17 12/13/17 Rx [Duoneb 0.5 mg-3 mg/3 ml Soln] ampul.neb Pantoprazole [Protonix] 40 mg PO AC-BRKFST tablet. 12/14/17 Rx predniSONE 10 mg PO DIRECTED #30 tab 12/14/17 Rx Aspirin 325 mg PO DAILY tab 12/19/17 Rx Thiamine [Vitamin B-1] 100 mg PO BID@1200,1700 tab 12/19/17 Rx Allergies Allergy/AdvReac Type Severity Reaction Status Date / Time Morrill Feces Allergy Dyspnea Uncoded 12/13/17 03:50 Physical Examination - Vital Signs Vital Signs: Vital Signs Temp Pulse Pulse Pulse Pulse Resp BP 12/20/17 12:00 98.2 F 98 88 16 142/72 12/20/17 11:48 86 12/20/17 11:38 88 12/20/17 08:25 84 12/20/17 08:19 86 12/20/17 08:18 86 12/20/17 08:07 82 12/20/17 08:00 98.8 F 71 12 138/70 12/20/17 04:00 98.8 F 85 90 94 20 145/88 12/20/17 00:00 98.4 F 85 81 94 20 141/86 12/19/17 20:00 98.5 F 94 81 94 20 134/84 12/19/17 19:37 82 12/19/17 19:23 80 12/19/17 16:00 98.4 F 75 18 129/75 Pulse Ox 12/20/17 12:00 94 L 12/20/17 11:48 12/20/17 11:38 12/20/17 08:25 12/20/17 08:19 12/20/17 08:18 12/20/17 08:07 12/20/17 08:00 78 L 12/20/17 04:00 94 L 12/20/17 00:00 94 L 12/19/17 20:00 93 L 12/19/17 19:37 12/19/17 19:23 12/19/17 16:00 96 Intake and Output 12/20/17 12/20/17 12/20/17 06:59 14:59 22:59 Other: Voiding Method - Constitutional General appearance: average body habitus, cooperative - EENT EENT: PERRL, mucous membranes moist - Respiratory Respiratory: lungs clear, normal breath sounds - Cardiovascular Cardiovascular: regular rate, normal S1, normal S2 Extremities: no peripheral edema bilaterally - Gastrointestinal Gastrointestinal: normoactive bowel sounds - Integumentary Integumentary: normal - Neurologic Cranial nerve examination: PERRL, EOMI, VFF, V1/V2/V3 grossly intact, face symmetric, intact gag reflex, intact corneal reflex, normal palatal elevation Speech examination: intact Sensorimotor examination: intact Motor examination - right side: 3/5: biceps, triceps, wrist flexion, wrist extension, cableway operator, hip flexors, knee extensors, dorsiflexion, toe extension (EHL) , plantarflexion Motor examination - left side: 3/5: biceps, triceps, wrist flexion, wrist extension, cableway operator, hip flexors, knee extensors, dorsiflexion, toe extension (EHL) , plantarflexion Detailed sensory examination: intact Reflex and gait examination: intact Reflexes: 1+: ankle, bicep, knee, tricep - Musculoskeletal Musculoskeletal: no pain - Psychiatric Psychiatric: depressed (Patient is lethargic but arousable on exam.) Results - Laboratory Findings CBC and BMP: 12/20/17 05:34 12/20/17 12:47 Abnormal Lab Findings: Abnormal Labs 12/12/17 12/12/17 12/12/17 22:30 22:30 22:30 WBC RBC Hgb Hct MCV 105.3 H MCH RDW 15.6 H Neutrophils # Lymphocytes # Eosinophils # (Manual) 0.71 H ABG pH ABG pCO2 ABG pO2 ABG HCO3 ABG Total CO2 ABG O2 Saturation Sodium Potassium Chloride 108 H Carbon Dioxide 21 L BUN 8 L Creatinine Glucose 114 H POC Glucose (mg/dL) Calcium Phosphorus Magnesium AST ALT Ammonia Total Creatine Kinase 196 H CK-MB (CK-2) 3.1 H* Total Protein Albumin Urine Ketones Urine Methadone Screen U Benzodiazepines Scrn 12/13/17 12/13/17 12/13/17 05:05 11:00 16:45 WBC RBC Hgb Hct MCV MCH RDW Neutrophils # Lymphocytes # Eosinophils # (Manual) ABG pH ABG pCO2 ABG pO2 ABG HCO3 ABG Total CO2 ABG O2 Saturation Sodium Potassium Chloride Carbon Dioxide BUN Creatinine Glucose POC Glucose (mg/dL) 126 H Calcium Phosphorus Magnesium AST ALT Ammonia Total Creatine Kinase CK-MB (CK-2) 2.7 H* 2.5 H* Total Protein Albumin Urine Ketones Urine Methadone Screen U Benzodiazepines Scrn 12/13/17 12/13/17 12/14/17 17:07 20:59 06:34 WBC RBC Hgb Hct MCV MCH RDW Neutrophils # Lymphocytes # Eosinophils # (Manual) ABG pH ABG pCO2 ABG pO2 ABG HCO3 ABG Total CO2 ABG O2 Saturation Sodium Potassium Chloride Carbon Dioxide 21 L BUN Creatinine Glucose 172 H POC Glucose (mg/dL) 163 H Calcium Phosphorus Magnesium AST ALT Ammonia Total Creatine Kinase CK-MB (CK-2) Total Protein Albumin Urine Ketones Trace H Urine Methadone Screen Detected H U Benzodiazepines Scrn 12/14/17 12/14/17 12/14/17 06:34 12:01 17:06 WBC 11.1 H RBC 4.16 L Hgb Hct MCV 109.4 H MCH RDW 15.7 H Neutrophils # 9.6 H Lymphocytes # Eosinophils # (Manual) ABG pH ABG pCO2 ABG pO2 ABG HCO3 ABG Total CO2 ABG O2 Saturation Sodium Potassium Chloride Carbon Dioxide BUN Creatinine Glucose POC Glucose (mg/dL) 119 H 129 H Calcium Phosphorus Magnesium AST ALT Ammonia Total Creatine Kinase CK-MB (CK-2) Total Protein Albumin Urine Ketones Urine Methadone Screen U Benzodiazepines Scrn 12/14/17 12/15/17 12/15/17 20:55 06:25 06:25 WBC 12.7 H RBC 4.01 L Hgb Hct MCV 106.5 H MCH 36.2 H RDW 15.6 H Neutrophils # 11.0 H Lymphocytes # 0.9 L Eosinophils # (Manual) ABG pH ABG pCO2 ABG pO2 ABG HCO3 ABG Total CO2 ABG O2 Saturation Sodium Potassium Chloride Carbon Dioxide 19 L BUN 37 H Creatinine 1.52 H Glucose 114 H POC Glucose (mg/dL) 143 H Calcium Phosphorus Magnesium AST ALT Ammonia Total Creatine Kinase CK-MB (CK-2) Total Protein Albumin Urine Ketones Urine Methadone Screen U Benzodiazepines Scrn 12/15/17 12/15/17 12/15/17 06:59 12:09 19:20 WBC RBC Hgb Hct MCV MCH RDW Neutrophils # Lymphocytes # Eosinophils # (Manual) ABG pH ABG pCO2 ABG pO2 ABG HCO3 ABG Total CO2 ABG O2 Saturation Sodium Potassium Chloride Carbon Dioxide BUN Creatinine Glucose POC Glucose (mg/dL) 118 H 130 H 118 H Calcium Phosphorus Magnesium AST ALT Ammonia Total Creatine Kinase CK-MB (CK-2) Total Protein Albumin Urine Ketones Urine Methadone Screen U Benzodiazepines Scrn 12/15/17 12/15/17 12/15/17 20:23 20:29 21:10 WBC RBC Hgb Hct MCV MCH RDW Neutrophils # Lymphocytes # Eosinophils # (Manual) ABG pH 7.19 L* ABG pCO2 63 H ABG pO2 75 L ABG HCO3 ABG Total CO2 26 H ABG O2 Saturation 92.6 L Sodium 134 L Potassium Chloride Carbon Dioxide BUN 54 H Creatinine 1.68 H Glucose 142 H POC Glucose (mg/dL) 128 H Calcium Phosphorus 6.7 H Magnesium AST ALT Ammonia Total Creatine Kinase CK-MB (CK-2) Total Protein Albumin Urine Ketones Urine Methadone Screen U Benzodiazepines Scrn 12/16/17 12/16/17 12/16/17 04:47 04:47 04:47 WBC RBC 3.73 L Hgb Hct 38.9 L MCV 104.3 H MCH 36.1 H RDW 15.6 H Neutrophils # 8.1 H Lymphocytes # 0.9 L Eosinophils # (Manual) ABG pH ABG pCO2 ABG pO2 ABG HCO3 ABG Total CO2 ABG O2 Saturation Sodium 136 L Potassium Chloride Carbon Dioxide BUN 52 H Creatinine 1.40 H Glucose 109 H POC Glucose (mg/dL) Calcium Phosphorus 5.9 H Magnesium AST 78 H ALT 79 H Ammonia Total Creatine Kinase CK-MB (CK-2) Total Protein Albumin Urine Ketones Urine Methadone Screen U Benzodiazepines Scrn 12/16/17 12/16/17 12/16/17 07:39 11:47 14:25 WBC RBC Hgb Hct MCV MCH RDW Neutrophils # Lymphocytes # Eosinophils # (Manual) ABG pH 7.30 L ABG pCO2 57 H ABG pO2 77 L ABG HCO3 28 H ABG Total CO2 30 H ABG O2 Saturation Sodium Potassium Chloride Carbon Dioxide BUN Creatinine Glucose POC Glucose (mg/dL) 120 H Calcium Phosphorus Magnesium AST ALT Ammonia Total Creatine Kinase CK-MB (CK-2) Total Protein Albumin Urine Ketones Urine Methadone Screen Detected H U Benzodiazepines Scrn Detected H 12/16/17 12/16/17 12/16/17 15:45 17:13 21:37 WBC RBC Hgb Hct MCV MCH RDW Neutrophils # Lymphocytes # Eosinophils # (Manual) ABG pH ABG pCO2 ABG pO2 ABG HCO3 ABG Total CO2 ABG O2 Saturation Sodium Potassium Chloride Carbon Dioxide BUN Creatinine Glucose POC Glucose (mg/dL) 109 H 127 H Calcium Phosphorus 5.6 H Magnesium 2.4 H AST ALT Ammonia Total Creatine Kinase CK-MB (CK-2) Total Protein Albumin Urine Ketones Urine Methadone Screen U Benzodiazepines Scrn 12/17/17 12/17/17 12/17/17 05:03 05:03 07:10 WBC RBC 3.66 L Hgb 12.8 L Hct MCV 107.3 H MCH RDW Neutrophils # Lymphocytes # 0.5 L Eosinophils # (Manual) ABG pH ABG pCO2 ABG pO2 ABG HCO3 ABG Total CO2 ABG O2 Saturation Sodium Potassium 5.2 H Chloride Carbon Dioxide BUN 42 H Creatinine Glucose 150 H POC Glucose (mg/dL) 152 H Calcium Phosphorus 5.0 H Magnesium 2.4 H AST ALT Ammonia Total Creatine Kinase CK-MB (CK-2) Total Protein Albumin Urine Ketones Urine Methadone Screen U Benzodiazepines Scrn 12/17/17 12/17/17 12/17/17 08:07 13:37 16:45 WBC RBC Hgb Hct MCV MCH RDW Neutrophils # Lymphocytes # Eosinophils # (Manual) ABG pH 7.24 L ABG pCO2 73 H* ABG pO2 75 L ABG HCO3 31 H ABG Total CO2 33 H ABG O2 Saturation 93.9 L Sodium Potassium Chloride Carbon Dioxide BUN Creatinine Glucose POC Glucose (mg/dL) 152 H 192 H Calcium Phosphorus Magnesium AST ALT Ammonia Total Creatine Kinase CK-MB (CK-2) Total Protein Albumin Urine Ketones Urine Methadone Screen U Benzodiazepines Scrn 12/17/17 12/18/17 12/18/17 20:55 06:11 11:36 WBC RBC Hgb Hct MCV MCH RDW Neutrophils # Lymphocytes # Eosinophils # (Manual) ABG pH ABG pCO2 ABG pO2 ABG HCO3 ABG Total CO2 ABG O2 Saturation Sodium Potassium Chloride Carbon Dioxide BUN Creatinine Glucose POC Glucose (mg/dL) 125 H 121 H 110 H Calcium Phosphorus Magnesium AST ALT Ammonia Total Creatine Kinase CK-MB (CK-2) Total Protein Albumin Urine Ketones Urine Methadone Screen U Benzodiazepines Scrn 12/18/17 12/18/17 12/19/17 16:32 21:23 05:57 WBC RBC Hgb Hct MCV MCH RDW Neutrophils # Lymphocytes # Eosinophils # (Manual) ABG pH ABG pCO2 ABG pO2 ABG HCO3 ABG Total CO2 ABG O2 Saturation Sodium Potassium Chloride Carbon Dioxide BUN Creatinine Glucose POC Glucose (mg/dL) 121 H 115 H 118 H Calcium Phosphorus Magnesium AST ALT Ammonia Total Creatine Kinase CK-MB (CK-2) Total Protein Albumin Urine Ketones Urine Methadone Screen U Benzodiazepines Scrn 12/19/17 12/19/17 12/19/17 06:14 06:14 11:20 WBC RBC 3.60 L Hgb 12.5 L Hct 38.6 L MCV 107.1 H MCH RDW Neutrophils # Lymphocytes # Eosinophils # (Manual) ABG pH ABG pCO2 ABG pO2 ABG HCO3 ABG Total CO2 ABG O2 Saturation Sodium Potassium Chloride Carbon Dioxide 33 H BUN 32 H Creatinine Glucose POC Glucose (mg/dL) 116 H Calcium Phosphorus Magnesium 2.6 H AST ALT Ammonia Total Creatine Kinase CK-MB (CK-2) Total Protein Albumin Urine Ketones Urine Methadone Screen U Benzodiazepines Scrn 12/19/17 12/19/17 12/19/17 16:24 18:03 20:53 WBC RBC Hgb Hct MCV MCH RDW Neutrophils # Lymphocytes # Eosinophils # (Manual) ABG pH ABG pCO2 58 H ABG pO2 139 H ABG HCO3 34 H ABG Total CO2 ABG O2 Saturation 98.0 H Sodium Potassium Chloride Carbon Dioxide BUN Creatinine Glucose POC Glucose (mg/dL) 105 H 103 H Calcium Phosphorus Magnesium AST ALT Ammonia Total Creatine Kinase CK-MB (CK-2) Total Protein Albumin Urine Ketones Urine Methadone Screen U Benzodiazepines Scrn 12/20/17 12/20/17 12/20/17 05:34 05:34 05:48 WBC RBC 3.81 L Hgb Hct MCV 108.2 H MCH 36.2 H RDW Neutrophils # Lymphocytes # Eosinophils # (Manual) ABG pH ABG pCO2 ABG pO2 ABG HCO3 ABG Total CO2 ABG O2 Saturation Sodium Potassium Chloride Carbon Dioxide BUN Creatinine Glucose POC Glucose (mg/dL) 111 H Calcium Phosphorus Magnesium 2.4 H AST ALT Ammonia Total Creatine Kinase CK-MB (CK-2) Total Protein Albumin Urine Ketones Urine Methadone Screen U Benzodiazepines Scrn 12/20/17 12/20/1712/20/18 07:55 08:02 08:50 WBC RBC Hgb Hct MCV MCH RDW Neutrophils # Lymphocytes # Eosinophils # (Manual) ABG pH 7.26 L 7.25 L ABG pCO2 85 H* 90 H* ABG pO2 68 L 179 H ABG HCO3 14 L 38 H ABG Total CO2 17 L ABG O2 Saturation 92.0 L 99.0 H Sodium Potassium Chloride Carbon Dioxide BUN Creatinine Glucose POC Glucose (mg/dL) 122 H Calcium Phosphorus Magnesium AST ALT Ammonia Total Creatine Kinase CK-MB (CK-2) Total Protein Albumin Urine Ketones Urine Methadone Screen U Benzodiazepines Scrn 12/20/17 12/20/17 12/20/17 12:28 12:47 12:47 WBC RBC Hgb Hct MCV MCH RDW Neutrophils # Lymphocytes # Eosinophils # (Manual) ABG pH 7.32 L ABG pCO2 75 H* ABG pO2 ABG HCO3 38 H ABG Total CO2 ABG O2 Saturation Sodium Potassium Chloride 96 L Carbon Dioxide 39 H BUN 24 H Creatinine 0.60 L Glucose 104 H POC Glucose (mg/dL) Calcium 8.3 L Phosphorus Magnesium AST 711 H ALT 1130 H Ammonia 40 H Total Creatine Kinase CK-MB (CK-2) Total Protein 6.1 L Albumin 3.4 L Urine Ketones Urine Methadone Screen U Benzodiazepines Scrn Assessment and Plan (1) Chronic hypoxemic respiratory failure Current Visit: Yes Status: Acute Code(s): J96.11 - CHRONIC RESPIRATORY FAILURE WITH HYPOXIA SNOMED Code(s): 921635402 (2) Acute encephalopathy Current Visit: Yes Status: Acute Code(s): G93.40 - ENCEPHALOPATHY, UNSPECIFIED SNOMED Code(s): 35627794 (3) Pulmonary sarcoidosis Current Visit: Yes Status: Acute Code(s): D86.0 - SARCOIDOSIS OF LUNG SNOMED Code(s): 15823649 (4) Alcohol intoxication Current Visit: No Status: Acute Code(s): F10.929 - ALCOHOL USE, UNSPECIFIED WITH INTOXICATION, UNSPECIFIED SNOMED Code(s): 45682731 (5) COPD exacerbation Current Visit: No Status: Acute Code(s): J44.1 - CHRONIC OBSTRUCTIVE PULMONARY DISEASE W (ACUTE) EXACERBATION SNOMED Code(s): 032353514512716 Plan: This patient is a 62-year-old male initially admitted to hospital on 12/13/2017 with increased shortness of breath and hypoxemic and hypercapnic wrist [place] failure. He has a history of pulmonary sarcoidosis. He has been treated for the last several days and apparently had been placed on methadone as he has a history of chronic pain and alcohol abuse in the past. Patient was being considered for discharge home yesterday when he showed increasing signs of lethargy and confusion. He was given Narcan today with slight improvement. His discharge was canceled today by the admitting physician Dr. Marcos. He was sent for a computed tomography scan of the brain today which reveals no acute intracranial hemorrhage or midline shift. There was diffuse age-related cerebral atrophy and chronic white matter ischemic changes noted. Acute on chronic paranasal sinus disease was noted. Patient was updated on the CAT scan report but he is very lethargic this afternoon. He was placed back on BiPAP today. Pulmonary medicine is following him for history of pulmonary sarcoidosis and severe COPD exacerbation. As noted he was given Narcan today with only slight improvement in his mental status. He is also a known patient with alcohol abuse in the past and is being monitored for alcohol withdrawal as well. The patient is arousable but needs stimulation to answer questions. He is stuporous on exam at this time but is sitting with BiPAP in place. He denies any headache or focal weakness. His neurological examination fails to reveal any focal motor deficit. We did review the CAT scan report today in detail and there is no evidence of acute stroke. Apparently it is very unclear whether he has been using methadone at home for chronic pain syndrome. Apparently he was restarted on this when he was admitted to Hospital and initially in the intensive care unit. He was started on 30 mg and this dose was reduced to 15 mg when he came to the medical selective care floor. As noted he did require Narcan which did seem to help and his methadone has been discontinued. This patient's clinical history suggests one of severe metabolic and anoxic encephalopathy. We will obtain a routine EEG for further evaluation of encephalopathy. We will await further recommendations from pulmonary medicine regarding his overall respiratory status. As noted CAT scan of the brain failed to reveal any acute findings. His overall prognosis at this time remains very guarded. Time with Patient: Greater than 30
[2017-12-20 15:38] LABS: Albumin 3.4 g/dL (3.5-5.0); Bilirubin, Delta 0.7 mg/dL (0.0-0.2); Bilirubin,Unconjugated 0.2 mg/dL (0.0-1.1); Total Bilirubin 0.9 mg/dL (0.2-1.3); Total Protein 6.3 g/dL (6.3-8.2)
--- NOTE | 2017-12-20 15:52 | US ---
EXAMINATION TYPE: US abdomen complete DATE OF EXAM: 12/20/2017 COMPARISON: None CLINICAL HISTORY: elevated liver enzymes. Poor historian. Patient is on breathing machine. EXAM MEASUREMENTS: Liver Length: 15.3 cm Gallbladder Wall: 0.2 cm CHD: 0.4 cm Right Kidney: 10.8 x 4.8 x 5.4 cm Left Kidney: 11.2 x 4.6 x 5.9 cm Limited exam due to overlying bowel gas, patient on breathing machine and unable to turn. Pancreas: Obscured by bowel gas Liver: Limited visualization due to bowel gas. Scanned through ribs. No prominent masses or lesion s seen. Liver appears heterogenous in echotexture with poor visualization of the portal triads most commonly related to underlying hepatic steatosis. This limits evaluation for underlying hepatic lizz s. Gallbladder: Appears wnl. Only scanned supine due to patient unable to turn Evidence for sonographic Blanton's sign: neg CBD: Obscured by overlying bowel gas CHD: wnl Spleen: Obscured by overlying bowel gas Right Kidney: Limited visualization, portions seen appear wnl Left Kidney: Limited visualization, portions seen appear wnl Upper IVC: Obscured by overlying bowel gas Abd Aorta: Obscured by overlying bowel gas IMPRESSION: Limited exam due to overlying bowel gas and inability for patient to cooperate with posit ioning. No sonographic evidence of cholelithiasis or acute cholecystitis. Findings most compatible wi th hepatic steatosis.
[2017-12-20] MEDS: ASPIRIN 325 MG TAB PO SCH (16:30)
[2017-12-20] MEDS: DILTIAZEM CD 180 MG CAP.ER.24H PO SCH (16:30)
[2017-12-20] MEDS: AZITHROMYCIN 500 MG TAB PO SCH (16:30)
[2017-12-20] MEDS: THIAMINE 100 MG TAB PO SCH ×2 (16:31→19:21)
[2017-12-20 16:44] LABS: Glucose,Whole Blood 146 mg/dL (75-99)
--- NOTE | 2017-12-20 18:11 | PN ---
PROGRESS NOTE DATE OF SERVICE: 12/20/2017 Patient is seen in the room at the bedside. Patient's mental status has deteriorated. The patient remains on BiPAP and initial ABGs showing a CO2 in the 80s, which did improve after BiPAP. The patient's vital signs: Temperature of 98.2, pulse 70, respirations 16, blood pressure 142/72, O2 saturation 94% on the BiPAP. GENERAL EXAMINATION: Patient is sleepy and lethargic. Does open eyes to verbal stimulation. HEENT: Atraumatic, normocephalic. Pupils are narrow and fixed. Buccal mucosa is fair. Neck is supple. No goiter, lymphadenopathy. JVD is negative. No carotid bruit heard. LUNGS: Decreased breath sound. Diffuse wheezing and scattered rhonchi. HEART: Regular rate and rhythm without any murmurs, gallop rhythm. Abdomen is soft, nontender, nondistended. Bowel sounds positive. EXTREMITIES: 1+ edema both lower extremities. NEUROLOGICAL EXAMINATION: Patient is awake and alert to place and person. Cranial nerves 2-12 are grossly intact. The patient moves all 4 extremities. Does not follow the commands very well, so complete detailed neurological examination was not done. Skin is warm, dry and intact. LAB: CBC: White blood count of 9.6, hemoglobin 13.8, hematocrit 41.2, and platelet count of 156. Chemical profile: Sodium 140, potassium 4.5, chloride 96, bicarb 39, BUN 24, creatinine 0.6, glucose of 104. ASSESSMENT: 1. Altered mental status, etiology unclear. I will order stat CT of the head. Consult Neurology. Will put patient on neuro checks and order stat ABGs and ammonia level and treat accordingly. 2. Abdominal distention with elevated liver enzymes. Ultrasound of the abdomen is done which does not show any acute process, only hepatic steatosis. Will monitor and trend liver enzymes and we will consult GI for any further recommendations. Will continue with this supportive care in the meantime. 3. Acute hypercapnic respiratory failure. The patient remains on BiPAP. Pulmonary is following. Continue with IV Solu-Medrol and nebulizer treatments. 4. Severe acute exacerbation of chronic obstructive pulmonary disease as above. 5. Left lower lobe pneumonia. Continue with the IV antibiotic treatment. 6. Right-sided chest pain, possibly musculoskeletal. 7. History of ETOH abuse with possible withdrawal. 8. Stage III chronic kidney disease. We will continue with the current plan of care. Await further recommendations from Neurology. MMODL / IJN: [id number] /
[2017-12-20 20:42] LABS: Glucose,Whole Blood 213 mg/dL (75-99)
[2017-12-20] MEDS: ALPRAZolam 1 MG TAB PO SCH (21:48)
--- NOTE | 2017-12-20 21:53 | PN ---
PROGRESS NOTE DATE OF SERVICE: 12/20/17 He was seen again on December 20, 2017. He has been somnolent. He had an ABG done which showed evidence of elevated pCO2. He was placed on BiPAP and subsequently was given Narcan as well as he had been on methadone. On physical examination, he is sleepy but arousable and is following commands for me. His blood pressure is 142/72, respiratory rate is 16, pulse rate 98, temperature 98.2, O2 saturation on BiPAP is 94%. HEENT reveals BiPAP in place. Chest reveals decreased breath sounds. Prolonged expiration. Cardiovascular system is S1, S2. Abdomen is soft. There is 1+ pedal edema. Last ABG shows a pH of 7.32, pCO2 of 75, PO2 of 90, bicarb of 38, O2 saturation of 97%. Sodium is 140, potassium 4.5, chloride 96, bicarb 39. IMPRESSION: At this time is: 1. Acute on chronic respiratory failure secondary to obstructive sleep apnea with chronic obstructive pulmonary disease with exacerbation. 2. Methadone contributing to his increased pCO2 and acute respiratory failure. 3. Pneumonia with possible aspiration etiology. At this point in time, continue him on his current medications including his antibiotics, bronchodilators and aerosolized steroids. Keep him on BiPAP. Hold his methadone. I agree with continuing him on his steroids as well. Decrease his narcotic medications at this time. MMODL / IJN: [id number] /
[2017-12-20 23:09] LABS: Hepatitis A Antibody IgM Non-Reactive (Non-Reactive); Hepatitis B Core IgM Non-Reactive (Non-Reactive)
[2017-12-21] MEDS: NITROGLYCERIN OINT 1 INCH/GM PACKET TOPICAL SCH ×4 (00:02→15:49)
[2017-12-21] MEDS: methylPREDNISolone SOD SUCCI 125 MG/2 ML VIAL IV SCH ×3 (00:03→21:31)
[2017-12-21] MEDS: PANTOPRAZOLE 40 MG TABLET PO SCH (06:04)
[2017-12-21 06:16] LABS: Glucose,Whole Blood 151 mg/dL (75-99)
[2017-12-21] MEDS: INSULIN ASPART 100 UNIT/ML 1 ML 10 ML VIAL SQ SCH ×4 (06:50→21:48)
[2017-12-21 07:14] LABS: Magnesium 2.4 mg/dL (1.6-2.3); Phosphorus 3.5 mg/dL (2.5-4.5)
[2017-12-21] MEDS: BUDESONIDE 1 MG/2 ML NEBU INHALATION SCH ×3 (08:59→21:48)
[2017-12-21] MEDS: FORMOTEROL FUMARATE 20 MCG/2 ML NEBU INHALATION SCH ×3 (08:59→21:49)
[2017-12-21] MEDS: IPRATROPIUM-ALBUTEROL 3 ML NEB INHALATION SCH ×5 (08:59→21:49)
[2017-12-21] MEDS: cefTRIAXone IN SWFI 1,000 MG/10 ML SYRINGE IVP SCH (10:04)
[2017-12-21] MEDS: ASPIRIN 325 MG TAB PO SCH (10:05)
[2017-12-21] MEDS: HEPARIN SODIUM,PORCINE 5,000 UNIT/ML 1 ML VIAL SQ SCH ×2 (10:05→21:31)
[2017-12-21] MEDS: AZITHROMYCIN 500 MG TAB PO SCH (10:05)
[2017-12-21] MEDS: DILTIAZEM CD 180 MG CAP.ER.24H PO SCH (10:05)
[2017-12-21] MEDS: THIAMINE 100 MG TAB PO SCH ×2 (10:06→15:51)
[2017-12-21 11:43] LABS: Glucose,Whole Blood 171 mg/dL (75-99)
[2017-12-21 13:11] LABS: Appearance,Urine Clear (Clear); Bilirubin,Urine Negative (Negative); Blood,Urine Negative (Negative); Color,Urine Yellow; Glucose,Urine (UA) Trace (Negative); Ketones,Urine Negative (Negative); Leukocyte Esterase,Urine Negative (Negative); Nitrite,Urine Negative (Negative); PH, Urine 6.5 (5.0-8.0); Protein,Urine Negative (Negative); Specific Gravity,Urine 1.025 (1.001-1.035)
[2017-12-21 13:28] LABS: Amphetamine Screen,Urine Not Detected (NotDetected); Barbiturate Screen,Urine Not Detected (NotDetected); Benzodiazepines Screen,Urine Detected (NotDetected); Cocaine Screen,Urine Not Detected (NotDetected); Methadone Screen, Urine Detected (NotDetected); Opiate Screen,Urine Not Detected (NotDetected); Oxycodone Screen, Urine Not Detected (NotDetected); Phencyclidine Screen,Urine Not Detected (NotDetected); Tricyclic Antidepressant,Urine Not Detected (NotDetected); Urn Cannabinoid Scrn Not Detected (NotDetected)
--- NOTE | 2017-12-21 14:52 | P.PN ---
Subjective Progress Note Date: 12/21/17 [facility] is covering for Dr. Garza. 12/19/17- Patient is being seen examined on rounds, he is seen sitting up in bed. This patient is here for acute COPD exacerbation, tracheobronchitis and she taking and EtOH withdrawal. Patient is seen resting up in bed with safety center at bedside. He is currently on 5 L of supplemental oxygen via nasal cannula, continues to have shortness of breath with exertion and activity. Has a chronic congested cough. He continues on CIWA protocol for DTs. Did has episodes of letheragy yesterday so his xanax, methadone and benzos were on hold. He did wear his bipap last night. He was downgraded from ICU yesterday. All labs and reports have been reviewed. He is hemodynamically stable at this time. 12/19/17-12/20/17- Please see Dr. Suzette Bal notes 12/21/17- patient is being seen examined and evaluated today on rounds. The patient did have some increase in agitation and did require Haldol overnight. He didn't respond well from that. He has used the BiPAP overnight as well with did respond well. Currently he is seen up in bed resting on 5 L of supplemental oxygen via nasal cannula. Does have shortness of breath with exertion and activity. His narcotics have been decreased. Neurology has been on consult as well. He continues on [facility] protocol for EtOH withdrawal and DTs. Objective - Vital Signs Vital signs: Vital Signs Temp 96.8 F L 12/21/17 12:00 Pulse 75 12/21/17 12:22 Resp 18 12/21/17 12:00 BP 132/72 12/21/17 12:00 Pulse Ox 91 L 12/21/17 12:00 Intake & Output 12/20/17 12/21/17 12/21/17 18:59 06:59 18:59 Output Total 350 Balance -350 Weight 94.1 kg Output: Urine 350 Other: Voiding Method Urinal Urinal - Exam GENERAL EXAM: Alert, comfortable in no apparent distress. HEAD: Normocephalic. EYES: Normal reaction of pupils, equal size. NOSE: Clear with pink turbinates. THROAT: No erythema or exudates. NECK: No masses, no JVD. CHEST: No chest wall deformity. LUNGS: Patient noted to have poor air entry with coarse and rhonchorous breath sounds throughout.. CVS: S1 and S2 normal with no audible mumurs, regular rhythm. ABDOMEN: No hepatosplenomegaly, normal bowel sounds, no guarding or rigidity. EXTREMITIES: Trace edema noted, pedal pulses palpable. CENTRAL NERVOUS SYSTEM: No focal deficits, tone is normal in all 4 extremities. - Labs CBC & Chem 7: 12/20/17 05:34 12/20/17 12:47 Labs: Abnormal Lab Results - Last 24 Hours (Table) 12/20/17 12/20/17 12/20/17 Range/Units 12:47 12:47 16:41 POC Glucose (mg/dL) 146 H (75-99) mg/dL Magnesium (1.6-2.3) mg/dL Delta Bilirubin 0.7 H (0.0-0.2) mg/dL AST 715 H (17-59) U/L ALT 1160 H (21-72) U/L Albumin 3.4 L (3.5-5.0) g/dL Urine Glucose (UA) (Negative) Urine Methadone Screen (NotDetected) U Benzodiazepines Scrn (NotDetected) Hep C IgG Ab Reactive H (Non-Reactive) 12/20/17 12/21/17 12/21/17 Range/Units 20:40 06:12 06:13 POC Glucose (mg/dL) 213 H 151 H (75-99) mg/dL Magnesium 2.4 H (1.6-2.3) mg/dL Delta Bilirubin (0.0-0.2) mg/dL AST (17-59) U/L ALT (21-72) U/L Albumin (3.5-5.0) g/dL Urine Glucose (UA) (Negative) Urine Methadone Screen (NotDetected) U Benzodiazepines Scrn (NotDetected) Hep C IgG Ab (Non-Reactive) 12/21/17 12/21/17 12/21/17 Range/Units 11:40 13:00 13:00 POC Glucose (mg/dL) 171 H (75-99) mg/dL Magnesium (1.6-2.3) mg/dL Delta Bilirubin (0.0-0.2) mg/dL AST (17-59) U/L ALT (21-72) U/L Albumin (3.5-5.0) g/dL Urine Glucose (UA) Trace H (Negative) Urine Methadone Screen Detected H (NotDetected) U Benzodiazepines Scrn Detected H (NotDetected) Hep C IgG Ab (Non-Reactive) Assessment and Plan Assessment: Assessment EtOH withdrawal, with DTs Acute hypoxic and hypercapnic respiratory failure Stage III renal failure Right-sided chest wall pain with atypical chest pain appears to be related to musculoskeletal pain, improve Acute COPD exacerbation Bilateral lower lobe pneumonia continue antibiotics History of recent binge drinking with the impending alcohol withdrawal and/or or DTs History of chronic pain syndrome on methadone maintenance program History of pulmonary sarcoidosis with history of chronic persistent asthma Mildly elevated first set of cardiac enzymes however subsequent sets are within normal limit Plan Continue breathing treatments continue BiPAP at nighttime when necessary during the day Avoid narcotics and benzodiazepine while he is the somnolent and/or lethargic Gentle rehydration Steroid taper Agree with cardiovascular evaluation DVT and peptic ulcer disease prophylaxis Monitor patient closely for the alcohol withdrawal and impending DTs Continue antibiotics monitor observe clinical course closely further recommendations pending plan of care as per clinical response of the patient, Patient will need a sitter to monitor and ensure continuation of BiPAP We are covering for Dr. Garza I performed an examination of the patient and discussed their management with the nurse practitioner. I have reviewed the nurse practitioner's note and agree with the documented findings and plan of care.
--- NOTE | 2017-12-21 16:57 | CONS ---
CONSULTATION DATE OF SERVICE: 12/21/17. REQUESTING PHYSICIAN: Dr. Marcos. REASON FOR CONSULTATION: Elevated LFTs. HISTORY OF PRESENT ILLNESS: The patient is a 62-year-old white male with history of chronic hepatitis C infection, COPD, congestive heart failure, chronic liver disease, who was admitted to hospital a week ago complaining of chest pain associated with chronic cough, shortness of breath. While in the hospital he was diagnosed with exacerbation of COPD and there were some mental status changes for which he was transferred to the Intensive Care Unit for acute hypoxic hypercarbic respiratory failure. He was transferred back to the telemetry floor about 3 days ago. He was also noted to have chest x-ray that showed basilar infiltrates for which he was started on broad spectrum IV antibiotics. In the meantime, while he was in the hospital, he was noted to have acute elevation of serum transaminases with ALT of 1000 yesterday and repeat labs remained the same. At the time of admission to the hospital on December 13, his ALT and AST were 79 and 78 respectively. Patient has received antibiotics during this hospital course. He was somewhat hypertensive in the early part of hospitalization, but on review of records, in the last three or four days, his blood pressure has remained stable. Presently he reports no abdominal pain. Reports no nausea, vomiting. Denies any rectal bleeding. No melena. He was diagnosed with chronic hepatitis infection many years ago. He thinks he was treated with medications in the past but the patient is a very poor historian. PAST MEDICAL HISTORY: Significant for congestive heart failure, COPD, chronic hepatitis C infection, history of alcohol abuse, anxiety, depression. MEDICATIONS: Prior to admission include methadone. DuoNeb, Cardizem, Symbicort, Xanax. ALLERGIES: None. SOCIAL HISTORY: Chronic smoker. History of alcohol use on a regular basis. FAMILY HISTORY: Father had melena, mother had coronary artery disease and hypertension. REVIEW OF SYSTEMS: Cardiopulmonary: He denies any chest pain or shortness of breath. Genitourinary: He denies any dysuria or hematuria. Musculoskeletal: Unremarkable. Skin unremarkable. Endocrine unremarkable. Psychiatric unremarkable. ENT/vision unremarkable. Constitutional: Denies any recent weight loss. No fevers, chills or night sweats. PHYSICAL EXAMINATION: He appears comfortable, in no apparent distress. VITAL SIGNS: Stable. Blood pressure is 130/86, pulse rate is 87, temperature 96. HEENT: Examination unremarkable. Conjunctivae pink. Sclerae anicteric. Oral cavity no lesions. Neck: No jugular venous distention or lymph node enlargement. Chest: Clear to auscultation. HEART: Regular rate and rhythm. Abdomen is slightly distended but it was soft. The liver and spleen was not palpable. Bowel sounds are positive. No organomegaly. Extremities: No pedal edema. SKIN: No rashes. Neurological: He is alert and oriented times three. No focal deficits. LAB: Done today, hemoglobin 13.8, WBC 9.6, platelets 156, pH 7.32, CO2 75, PO2 98, bicarb 38. AST is 715, ALT is 1160. Alkaline phosphatase is 45, T-bilirubin is 0.7. Hepatitis serologies for A, B were negative. Hepatitis C IgG antibodies positive. IMPRESSION: The patient was admitted to the hospital with acute respiratory failure, presently on BiPAP, was subsequently diagnosed with pneumonia on broad-spectrum antibiotics with Rocephin. At the time of admission to the hospital, he was noted to have minimal elevation of transaminases but yesterday the AST went up to 715 and ALT 1149. Repeat labs from today show persistent elevation of LFTs. Hepatitis serologies reveal positive hepatitis C IgG antibody. The patient states that he was diagnosed with chronic hepatitis C infection and was treated in the past but does not recall any details. At this time, most likely we are dealing with medication induced hepatitis that is super imposed on underlying possible chronic hepatitis C infection. On review of the records, he did receive is currently on Rocephin for pneumonia and Haldol was also started about 4 days ago, which could potentially be causing medication induced hepatitis. RECOMMENDATION: 1. We will obtain hepatitis C viral RNA by PCR to confirm if we are dealing with chronic hepatitis C infection. 2. Repeat serum transaminases tomorrow. 3. If they continue to remain persistently elevated with no improvement, we will consider stopping antibiotics and will discuss this further with PCP. 4. For now we will continue the same medications. Follow him closely. 5. I have also requested for right upper quadrant abdominal ultrasound to evaluate the liver. 6. Will follow the patient closely during his hospital stay. Thank you for this consultation. MMODL / IJN: [id number] /
[2017-12-21 16:58] LABS: Glucose,Whole Blood 224 mg/dL (75-99)
[2017-12-21] MEDS: ALPRAZolam 1 MG TAB PO SCH (21:31)
[2017-12-21 21:50] LABS: Glucose,Whole Blood 166 mg/dL (75-99)
--- NOTE | 2017-12-21 22:38 | P.PN ---
Subjective Progress Note Date: 12/21/17 This patient is a 62-year-old male with history of multiple complex medical problems including history of chronic hepatitis C infection and severe COPD. Patient was seen in neurology consultation for altered mental status. He had evidence of hypoxic respiratory failure and is being evaluated for hypoxic/ anoxic encephalopathy. Patient underwent a routine EEG today which is to be reviewed. The EEG was reviewed and is moderately slow with no epileptiform discharges seen on the exam. Patient was examined today bedside and is much more awake and alert. There is no evidence for any severe anoxic encephalopathy based on this EEG. Patient did undergo a computed tomography scan of the brain yesterday which revealed no acute findings. Chronic cortical atrophy was noted with deep white matter ischemic changes. Patient was initially admitted to hospital for respiratory failure. He was diagnosed with pneumonia and has been treated with broad-spectrum antibiotics. Patient is being evaluated for possibility of chronic hepatitis C infection. He is been seen by gastroenterology and wear waiting the further recommendations. Patient is doing better today in terms of his mental status. He has been using BiPAP at bedtime. Would agree to avoid use of narcotics as well as benzodiazepines as this may produce more lethargy and the patient. Patient is anxious to be discharged home soon. We will continue follow his progress closely during this admission. Objective - Vital Signs Vital signs: Vital Signs Temp 96.8 F L 12/21/17 16:00 Pulse 76 12/21/17 16:05 Resp 18 12/21/17 16:00 BP 149/77 12/21/17 16:00 Pulse Ox 93 L 12/21/17 16:00 Intake & Output 12/20/17 12/21/17 12/21/17 18:59 06:59 18:59 Output Total 350 Balance -350 Weight 94.1 kg Output: Urine 350 Other: Voiding Method Urinal Urinal - Exam Physical examination: PHYSICAL EXAMINATION: Patient is resting comfortably in bed. VITAL SIGNS: Blood pressure is [149/77]. Heart rate is [86]. Respiration is [18] . Temperature is [96.8]. HEENT: Head is atraumatic, neck is supple, there were no carotid bruits. CHEST: Lungs are clear to auscultation and percussion. CARDIAC: S1, S2 normal rate and rhythm. There is no murmur. ABDOMEN: Soft and nontender. Bowel sounds are present. EXTREMITIES: There is no pedal edema. Peripheral pulses are present. Neurological examination: Patient is awake and alert and oriented and able to answer questions today quite appropriately. There is improvement in his mental status today as compared to yesterday. Cranial nerves II through XII are grossly intact. Motor examination fails to reveal any focal weakness. Deep tendon reflexes are 1+ and symmetric. Plantar responses flexor bilaterally. - Labs CBC & Chem 7: 12/20/17 05:34 12/20/17 12:47 Labs: Abnormal Lab Results - Last 24 Hours (Table) 12/20/17 12/20/17 12/21/17 Range/Units 12:47 20:40 06:12 POC Glucose (mg/dL) 213 H (75-99) mg/dL Magnesium 2.4 H (1.6-2.3) mg/dL Urine Glucose (UA) (Negative) Urine Methadone Screen (NotDetected) U Benzodiazepines Scrn (NotDetected) Hep C IgG Ab Reactive H (Non-Reactive) 12/21/17 12/21/17 12/21/17 Range/Units 06:13 11:40 13:00 POC Glucose (mg/dL) 151 H 171 H (75-99) mg/dL Magnesium (1.6-2.3) mg/dL Urine Glucose (UA) Trace H (Negative) Urine Methadone Screen (NotDetected) U Benzodiazepines Scrn (NotDetected) Hep C IgG Ab (Non-Reactive) 12/21/17 12/21/17 Range/Units 13:00 16:43 POC Glucose (mg/dL) 224 H (75-99) mg/dL Magnesium (1.6-2.3) mg/dL Urine Glucose (UA) (Negative) Urine Methadone Screen Detected H (NotDetected) U Benzodiazepines Scrn Detected H (NotDetected) Hep C IgG Ab (Non-Reactive) Assessment and Plan (1) Chronic hypoxemic respiratory failure Current Visit: Yes Status: Acute Code(s): J96.11 - CHRONIC RESPIRATORY FAILURE WITH HYPOXIA SNOMED Code(s): 568047867 (2) Acute encephalopathy Current Visit: Yes Status: Acute Code(s): G93.40 - ENCEPHALOPATHY, UNSPECIFIED SNOMED Code(s): 78580064 (3) Pulmonary sarcoidosis Current Visit: Yes Status: Acute Code(s): D86.0 - SARCOIDOSIS OF LUNG SNOMED Code(s): 14123337 (4) Alcohol intoxication Current Visit: No Status: Acute Code(s): F10.929 - ALCOHOL USE, UNSPECIFIED WITH INTOXICATION, UNSPECIFIED SNOMED Code(s): 51104825 (5) COPD exacerbation Current Visit: No Status: Acute Code(s): J44.1 - CHRONIC OBSTRUCTIVE PULMONARY DISEASE W (ACUTE) EXACERBATION SNOMED Code(s): 520014626907221 Plan: This patient is a 62-year-old male who was initially admitted for acute respiratory failure. Neurology was consulted yesterday due to altered mental status. He underwent a computed tomography scan of the brain which was negative for acute stroke or hemorrhage. And when routine EEG today which is reviewed and is only moderately slow. There is no evidence of any severe anoxic encephalopathy based on this EEG. Patient is being treated for his respiratory condition and is using BiPAP at nighttime. Patient is much more awake and alert today. We will continue follow his progress closely during this admission. His overall prognosis at this time remains guarded.
--- NOTE | 2017-12-21 23:45 | EEG ---
ELECTROENCEPHALOGRAM REPORT DATE OF EE12/21/2017 ELECTROENCEPHALOGRAPHIC EXAMINATION REPORT: INDICATION FOR EXAMINATION: This patient is a 62-year-old male being evaluated for altered mental status and hypoxic respiratory failure. AGE: 62. EEG FINDINGS: A routine 21-channel awake digital EEG recording was accomplished utilizing the 10-20 international system with bipolar and referential montages. The background activity in the most alert resting state consists of a low to medium amplitude, fairly well developed and well sustained 6-7 Hz activity over the posterior head regions. This posterior rhythm attenuates to eye opening. There is a small amount of low amplitude 18-20 beta activity seen maximally over the anterior head regions. Muscle and movement artifact was observed on a few occasions during the tracing. Hyperventilation was not performed. Photic stimulation at flash frequencies of 2-30 Hz produced a good symmetrical occipital driving response. Toward the mid lateral portion of the tracing the patient does drift into spontaneous drowsiness. No epileptiform discharges were seen. IMPRESSION: This EEG is mildly abnormal in a diffuse fashion due to slowing of the EEG background. The EEG failed to reveal any focal, lateralized or epileptiform abnormalities. Clinical correlation is recommended. MMODL / IJN: [id number] /
[2017-12-22] MEDS: NITROGLYCERIN OINT 1 INCH/GM PACKET TOPICAL SCH ×4 (00:06→16:57)
[2017-12-22] MEDS: INSULIN ASPART 100 UNIT/ML 1 ML 10 ML VIAL SQ SCH ×4 (06:23→20:55)
[2017-12-22 06:24] LABS: Glucose,Whole Blood 149 mg/dL (75-99)
[2017-12-22] MEDS: PANTOPRAZOLE 40 MG TABLET PO SCH (06:33)
[2017-12-22] MEDS: IPRATROPIUM-ALBUTEROL 3 ML NEB INHALATION SCH ×4 (09:02→20:31)
[2017-12-22] MEDS: FORMOTEROL FUMARATE 20 MCG/2 ML NEBU INHALATION SCH ×2 (09:02→20:31)
[2017-12-22] MEDS: BUDESONIDE 1 MG/2 ML NEBU INHALATION SCH ×2 (09:02→20:31)
[2017-12-22] MEDS: DILTIAZEM CD 180 MG CAP.ER.24H PO SCH (09:05)
[2017-12-22] MEDS: ASPIRIN 325 MG TAB PO SCH (09:05)
[2017-12-22] MEDS: THIAMINE 100 MG TAB PO SCH ×2 (09:05→16:57)
[2017-12-22] MEDS: AZITHROMYCIN 500 MG TAB PO SCH (09:05)
[2017-12-22] MEDS: HEPARIN SODIUM,PORCINE 5,000 UNIT/ML 1 ML VIAL SQ SCH ×2 (09:06→20:26)
[2017-12-22] MEDS: methylPREDNISolone SOD SUCCI 125 MG/2 ML VIAL IV SCH ×2 (09:06→20:26)
[2017-12-22] MEDS: cefTRIAXone IN SWFI 1,000 MG/10 ML SYRINGE IVP SCH (09:08)
--- NOTE | 2017-12-22 10:42 | P.PN ---
Subjective Progress Note Date: 12/22/17 Principal diagnosis: Hepatitis C reactive antibody elevated LFTs Resting comfortably reports mild abdominal discomfort. Morning chemistries pending. Afebrile. Tolerating regular diet. Objective - Vital Signs Vital signs: Vital Signs Temp 97.3 F L 12/22/17 08:00 Pulse 71 12/22/17 08:00 Resp 18 12/22/17 08:00 BP 125/72 12/22/17 08:00 Pulse Ox 91 L 12/22/17 08:00 Intake & Output 12/21/17 12/22/17 12/22/17 18:59 06:59 18:59 Output Total 350 650 Balance -350 -650 Output: Urine 350 650 Other: Voiding Method Urinal Urinal Urinal # Voids 1 - Exam General appearance: The patient is alert, oriented, in no acute distress. HET: Head is normocephalic and atraumatic. Pupils are equal and reactive. Oropharynx is clear without lesions. Neck: Supple without lymphadenopathy. Trachea midline. Heart: S1 S2. Regular rate and rhythm. Lungs: No crackles or wheezes are heard. Abdomen: Soft, mild midabdominal tenderness, nondistended with bowel sounds. No peritoneal signs. No palpable organomegaly or masses. Extremities: Normal skin color and turgor. No cyanosis, rash, ulceration, clubbing, or edema. Radial and pedal pulses are 2/4 bilaterally. Neurological: No focal deficits. Strength and sensation are grossly intact. - Labs CBC & Chem 7: 12/20/17 05:34 12/20/17 12:47 Labs: Abnormal Lab Results - Last 24 Hours (Table) 12/21/17 12/21/17 12/21/17 Range/Units 11:40 13:00 13:00 POC Glucose (mg/dL) 171 H (75-99) mg/dL Urine Glucose (UA) Trace H (Negative) Urine Methadone Screen Detected H (NotDetected) U Benzodiazepines Scrn Detected H (NotDetected) 12/21/17 12/21/17 12/22/17 Range/Units 16:43 21:40 06:18 POC Glucose (mg/dL) 224 H 166 H 149 H (75-99) mg/dL Urine Glucose (UA) (Negative) Urine Methadone Screen (NotDetected) U Benzodiazepines Scrn (NotDetected) Microbiology - Last 24 Hours (Table) 12/21/17 13:00 Urine Culture - Preliminary Urine,Voided Assessment and Plan Assessment: 1. History chronic HCV with elevated liver enzymes secondary to suspected superimposed drug-induced liver injury. 2. Acute respiratory failure and pneumonia. 3. Hepatic steatosis. 4. EtOH abuse. Plan: 1. Morning chemistries pending; continue to monitor LFTs Hepatitis C genotype and quantitative measurement pending. Will obtain AFP. Supportive measures. We'll continue to follow with you. Assessment and plan a care discussed with Dr. العراقي
--- NOTE | 2017-12-22 10:58 | PN ---
PROGRESS NOTE Patient was seen on 12/22/2017. He has been hemodynamically stable. He is more awake, alert. His methadone has been held. He partly refused his BiPAP last night, but when he became somnolent, they were able to have him wear it. PHYSICAL EXAMINATION: On physical examination, respiratory rate is 18, pulse rate is 71, blood pressure 126/72, temperature 97.3. HEENT reveals no new changes. Chest reveals decreased breath sounds. Prolonged expiration. No clear wheeze. Cardiovascular system reveals an S1, S2. Abdomen is soft. There is no edema. O2 saturation on 2 L by nasal cannula is 91%. IMPRESSION AT THIS TIME: 1. Acute on chronic respiratory failure in part due to obstructive sleep apnea that is untreated with obstructive sleep apnea. 2. Narcotic use, which is contributing to his elevated pCO2. 3. Pneumonia, possible aspiration etiology. Continue antibiotics, bronchodilators, aerosolized steroids. Continue BiPAP as needed. Agree with adjusting his narcotic medications. Depending on how he does, we shall make further changes to his care. MMODL / IJN: [id number] /
[2017-12-22 11:30] LABS: Glucose,Whole Blood 141 mg/dL (75-99)
[2017-12-22 16:44] LABS: Glucose,Whole Blood 177 mg/dL (75-99)
--- NOTE | 2017-12-22 16:53 | P.PN ---
Subjective Progress Note Date: 12/21/17 Progress note being dictated for Dr. Riley. Interval history: This a 62-year-old gentleman admitted with acute respiratory failure, pneumonia, acute metabolic encephalopathy, DTs, elevated LFTs, positive hepatitis C IgG antibody in a patient reporting chronic hepatitis C. maintained on IV antibiotics of Rocephin,CIWA protocol. Evaluated by GI with recommendations noted. Right upper quadrant abdominal ultrasound pending. Brain CT reporting non acute. EEG moderately slow, no evidence of severe anoxic encephalopathy as per neurology. Abdominal ultrasound limited, reporting hepatic steatosis. Respiratory status improving, currently maintained on 5 L nasal cannula. 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 business consultant at bedside. Objective - Vital Signs Vital signs: Vital Signs Temp 96.8 F L 12/21/17 16:00 Pulse 76 12/21/17 16:05 Resp 18 12/21/17 16:00 BP 149/77 12/21/17 16:00 Pulse Ox 93 L 12/21/17 16:00 Intake & Output 12/20/17 12/21/17 12/21/17 18:59 06:59 18:59 Output Total 350 Balance -350 Weight 94.1 kg Output: Urine 350 Other: Voiding Method Urinal Urinal - Exam PHYSICAL EXAM: VITAL SIGNS: As above GENERAL: Sitting up in bed, no acute distress HEENT: Conjunctivae normal. eyes normal. Oral mucosa moist. NECK: No JVD. No thyroid enlargement. No LNs CARDIOVASCULAR: S1, S2 muffled. No murmur RESPIRATION: Breath sounds diminished in the bases. Coarse rhonchi, no crackles. Diffuse expiratory wheezing. ABDOMEN: Soft, nontender . No guarding. no masses palpable.Bowel sounds heard. LEGS: positive edema. PSYCHIATRY/NERVOUS SYSTEM:Alert and oriented -2, person and place,Cranial N 2- 12 grossly normal. Moves all 4 limbs. Diffuse weakness No focal deficits. Skin: no ulcer no rash - Labs CBC & Chem 7: 12/20/17 05:34 12/20/17 12:47 Labs: Abnormal Lab Results - Last 24 Hours (Table) 12/20/17 12/20/17 12/21/17 Range/Units 12:47 20:40 06:12 POC Glucose (mg/dL) 213 H (75-99) mg/dL Magnesium 2.4 H (1.6-2.3) mg/dL Urine Glucose (UA) (Negative) Urine Methadone Screen (NotDetected) U Benzodiazepines Scrn (NotDetected) Hep C IgG Ab Reactive H (Non-Reactive) 12/21/17 12/21/17 12/21/17 Range/Units 06:13 11:40 13:00 POC Glucose (mg/dL) 151 H 171 H (75-99) mg/dL Magnesium (1.6-2.3) mg/dL Urine Glucose (UA) Trace H (Negative) Urine Methadone Screen (NotDetected) U Benzodiazepines Scrn (NotDetected) Hep C IgG Ab (Non-Reactive) 12/21/17 12/21/17 Range/Units 13:00 16:43 POC Glucose (mg/dL) 224 H (75-99) mg/dL Magnesium (1.6-2.3) mg/dL Urine Glucose (UA) (Negative) Urine Methadone Screen Detected H (NotDetected) U Benzodiazepines Scrn Detected H (NotDetected) Hep C IgG Ab (Non-Reactive) Assessment and Plan Assessment: 1. Acute hypoxic, hypercapnic respiratory failure secondary to acute COPD exacerbation and bilateral lower lobe pneumonia 2. EtOH withdrawal with active DTs 3. Chest pain, atypical as per cardiology 4. Chronic pain syndrome on methadone maintenance program 5. Pulmonary sarcoidosis, history of chronic persistent asthma Plan: Continue on current medication regime, nebulized bronchodilators, antibiotics, steroids, monitoring and symptomatic treatment. Maintain gentle IV fluid hydration Continue on CIWA protocol. business consultant. Refused lab draw. The impression and plan of care has been dictated as directed. : I performed a history and examination of this patient, discussed the same with the dictator. I agree with the dictator's note ,documented as a scribe. Any additional findings or plans will be noted.
--- NOTE | 2017-12-22 17:10 | P.PN ---
Subjective Progress Note Date: 12/22/17 Progress note being dictated for Dr. Emery Interval history: This a 62-year-old gentleman admitted with acute respiratory failure, pneumonia, acute metabolic encephalopathy, DTs, elevated LFTs, positive hepatitis C IgG antibody in a patient reporting chronic hepatitis C. maintained on IV antibiotics of Rocephin,CIWA protocol. Evaluated by GI with recommendations noted. Right upper quadrant abdominal ultrasound pending. Brain CT reporting non acute. EEG moderately slow, no evidence of severe anoxic encephalopathy as per neurology. Abdominal ultrasound limited, reporting hepatic steatosis. Respiratory status improving, currently maintained on 5 L nasal cannula. 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 12/22/2017 maintained on CIWA protocol, remains shaky. Refused BiPAP throughout the night. Refusing lab draw, refusing medications. Sitter at bedside. Tolerating regular diet with no nausea vomiting or diarrhea. Maintaining 93% on 2 L nasal cannula. Afebrile. Objective - Vital Signs Vital signs: Vital Signs Temp 97.3 F L 12/22/17 15:31 Pulse 70 12/22/17 15:34 Resp 18 12/22/17 15:34 BP 119/66 12/22/17 15:31 Pulse Ox 93 L 12/22/17 15:31 Intake & Output 12/21/17 12/22/17 12/22/17 18:59 06:59 18:59 Output Total 350 650 Balance -350 -650 Output: Urine 350 650 Other: Voiding Method Urinal Urinal Urinal # Voids 1 - Exam PHYSICAL EXAM: VITAL SIGNS: As above GENERAL: Sitting up in bed, no acute distress HEENT: Conjunctivae normal. eyes normal. Oral mucosa moist. NECK: No JVD. No thyroid enlargement. No LNs CARDIOVASCULAR: S1, S2 muffled. No murmur RESPIRATION: Breath sounds diminished in the bases. Coarse rhonchi, no crackles. Diffuse expiratory wheezing. ABDOMEN: Soft, nontender . No guarding. no masses palpable.Bowel sounds heard. LEGS: positive edema. PSYCHIATRY/NERVOUS SYSTEM:Alert and oriented -2, person and place,Cranial N 2- 12 grossly normal. Moves all 4 limbs. Diffuse weakness No focal deficits. Skin: no ulcer no rash - Labs CBC & Chem 7: 12/20/17 05:34 12/20/17 12:47 Labs: Abnormal Lab Results - Last 24 Hours (Table) 12/21/17 12/21/17 12/22/17 Range/Units 16:43 21:40 06:18 POC Glucose (mg/dL) 224 H 166 H 149 H (75-99) mg/dL 12/22/17 Range/Units 11:22 POC Glucose (mg/dL) 141 H (75-99) mg/dL Microbiology - Last 24 Hours (Table) 12/21/17 13:00 Urine Culture - Preliminary Urine,Voided Assessment and Plan Assessment: 1. Acute hypoxic, hypercapnic respiratory failure secondary to acute COPD exacerbation and bilateral lower lobe pneumonia 2. Acute metabolic encephalopathy, multifactorial 3. EtOH withdrawal with active DTs 4. Chest pain, atypical as per cardiology 5. Chronic pain syndrome on methadone maintenance program 6. Pulmonary sarcoidosis, history of chronic persistent asthma 7. Chronic hepatitis C 8. Hepatic steatosis Plan: Continue on current medication regime, nebulized bronchodilators, antibiotics, steroids, monitoring and symptomatic treatment. Steroid tapering in progress. Maintained [facility] protocol. Follow with multiple consults. Prognosis guarded given multiple complex medical issues. The impression and plan of care has been dictated as directed. : I performed a history and examination of this patient, discussed the same with the dictator. I agree with the dictator's note ,documented as a scribe. Any additional findings or plans will be noted.
[2017-12-22] MEDS: ALPRAZolam 1 MG TAB PO SCH (20:26)
[2017-12-22] MEDS: HYDROcodone/APAP 5-325MG 1 EACH TAB PO PRN (20:26)
[2017-12-22 20:46] LABS: Glucose,Whole Blood 153 mg/dL (75-99)
--- NOTE | 2017-12-22 22:03 | P.PN ---
Subjective Progress Note Date: 12/22/17 This patient is a 62-year-old male with history of multiple complex medical problems including history of chronic hepatitis C infection and severe COPD. Patient was seen in neurology consultation for altered mental status. He had evidence of hypoxic respiratory failure and is being evaluated for hypoxic/ anoxic encephalopathy. Patient underwent a routine EEG today which is to be reviewed. The EEG was reviewed and is moderately slow with no epileptiform discharges seen on the exam. Patient was examined today bedside and is much more awake and alert. There is no evidence for any severe anoxic encephalopathy based on this EEG. Patient did undergo a computed tomography scan of the brain yesterday which revealed no acute findings. Chronic cortical atrophy was noted with deep white matter ischemic changes. Patient was initially admitted to hospital for respiratory failure. He was diagnosed with pneumonia and has been treated with broad-spectrum antibiotics. Patient is being evaluated for possibility of chronic hepatitis C infection. He is been seen by gastroenterology and wear waiting the further recommendations. Patient is doing better today in terms of his mental status. He has been using BiPAP at bedtime. Would agree to avoid use of narcotics as well as benzodiazepines as this may produce more lethargy and the patient. Patient is anxious to be discharged home soon. Patient underwent abdominal ultrasound results of which indicate hepatic steatosis. Gastroenterology is following him. Patient is continuing on a [facility] protocol for possible DTs. He has a history of alcohol abuse in the past. Patient has been reluctant to use BiPAP at bedtime. We'll await further recommendations from pulmonary medicine. Continue to limit use of sedating medications for this patient. We will continue follow his progress closely during this admission. Objective - Vital Signs Vital signs: Vital Signs Temp 97.3 F L 12/22/17 15:31 Pulse 68 12/22/17 17:04 Resp 18 12/22/17 17:04 BP 119/66 12/22/17 15:31 Pulse Ox 93 L 12/22/17 15:31 Intake & Output 12/21/17 12/22/17 12/22/17 18:59 06:59 18:59 Output Total 350 650 Balance -350 -650 Output: Urine 350 650 Other: Voiding Method Urinal Urinal Urinal # Voids 1 - Exam Physical examination: PHYSICAL EXAMINATION: Patient is resting comfortably in bed. VITAL SIGNS: Blood pressure is [119/67]. Heart rate is [70]. Respiration is [18] . Temperature is [97.3]. HEENT: Head is atraumatic, neck is supple, there were no carotid bruits. CHEST: Lungs are clear to auscultation and percussion. CARDIAC: S1, S2 normal rate and rhythm. There is no murmur. ABDOMEN: Soft and nontender. Bowel sounds are present. EXTREMITIES: There is no pedal edema. Peripheral pulses are present. Neurological examination: Patient is awake and alert and oriented and able to answer questions today quite appropriately. There is improvement in his mental status today as compared to yesterday. Cranial nerves II through XII are grossly intact. Motor examination fails to reveal any focal weakness. Deep tendon reflexes are 1+ and symmetric. Plantar responses flexor bilaterally. - Labs CBC & Chem 7: 12/20/17 05:34 12/20/17 12:47 Labs: Abnormal Lab Results - Last 24 Hours (Table) 12/21/17 12/22/17 12/22/17 Range/Units 21:40 06:18 11:22 POC Glucose (mg/dL) 166 H 149 H 141 H (75-99) mg/dL 12/22/17 Range/Units 16:39 POC Glucose (mg/dL) 177 H (75-99) mg/dL Microbiology - Last 24 Hours (Table) 12/21/17 13:00 Urine Culture - Final Urine,Voided Assessment and Plan (1) Chronic hypoxemic respiratory failure Current Visit: Yes Status: Acute Code(s): J96.11 - CHRONIC RESPIRATORY FAILURE WITH HYPOXIA SNOMED Code(s): 265629053 (2) Acute encephalopathy Current Visit: Yes Status: Acute Code(s): G93.40 - ENCEPHALOPATHY, UNSPECIFIED SNOMED Code(s): 80947253 (3) Pulmonary sarcoidosis Current Visit: Yes Status: Acute Code(s): D86.0 - SARCOIDOSIS OF LUNG SNOMED Code(s): 50407731 (4) Alcohol intoxication Current Visit: No Status: Acute Code(s): F10.929 - ALCOHOL USE, UNSPECIFIED WITH INTOXICATION, UNSPECIFIED SNOMED Code(s): 52334777 (5) COPD exacerbation Current Visit: No Status: Acute Code(s): J44.1 - CHRONIC OBSTRUCTIVE PULMONARY DISEASE W (ACUTE) EXACERBATION SNOMED Code(s): 923000108124573 Plan: This patient is a 62-year-old male who was admitted for acute respiratory failure secondary to COPD exacerbation and bilateral lower lobe pneumonia. He was being readied for discharge when he developed increased confusion. His clinical history was consistent with acute metabolic encephalopathy. He has a history of alcohol abuse and is currently on [facility] protocol for alcohol withdrawal and possible impending DTs. The patient has become more awake and alert. He has been refusing to cooperate with nursing staff. Apparently use refused blood draws in medications today. He underwent routine EEG which was reviewed yesterday. EEG is not showing any evidence of severe anoxic encephalopathy for the patient. We will continue to monitor his progress closely along with multiple specialists Center monitoring him as well. His overall prognosis at this time remains guarded.
[2017-12-23] MEDS: NITROGLYCERIN OINT 1 INCH/GM PACKET TOPICAL SCH ×5 (04:54→23:46)
[2017-12-23] MEDS: INSULIN ASPART 100 UNIT/ML 1 ML 10 ML VIAL SQ SCH ×4 (05:50→21:29)
[2017-12-23] MEDS: PANTOPRAZOLE 40 MG TABLET PO SCH (05:53)
[2017-12-23 06:23] LABS: Glucose,Whole Blood 134 mg/dL (75-99)
[2017-12-23] MEDS: DILTIAZEM CD 180 MG CAP.ER.24H PO SCH (08:09)
[2017-12-23] MEDS: cefTRIAXone IN SWFI 1,000 MG/10 ML SYRINGE IVP SCH (08:09)
[2017-12-23] MEDS: ASPIRIN 325 MG TAB PO SCH (08:09)
[2017-12-23] MEDS: AZITHROMYCIN 500 MG TAB PO SCH (08:09)
[2017-12-23] MEDS: THIAMINE 100 MG TAB PO SCH ×2 (08:10→17:24)
[2017-12-23] MEDS: HEPARIN SODIUM,PORCINE 5,000 UNIT/ML 1 ML VIAL SQ SCH ×2 (08:10→21:29)
[2017-12-23] MEDS: methylPREDNISolone SOD SUCCI 125 MG/2 ML VIAL IV SCH ×2 (08:10→13:14)
[2017-12-23] MEDS: FORMOTEROL FUMARATE 20 MCG/2 ML NEBU INHALATION SCH ×2 (09:02→21:46)
[2017-12-23] MEDS: BUDESONIDE 1 MG/2 ML NEBU INHALATION SCH ×2 (09:02→21:46)
[2017-12-23] MEDS: IPRATROPIUM-ALBUTEROL 3 ML NEB INHALATION SCH ×4 (09:02→21:46)
--- NOTE | 2017-12-23 10:48 | P.PN ---
Subjective Progress Note Date: 12/23/17 Principal diagnosis: Hepatitis C reactive antibody elevated LFTs Resting comfortably reports mild abdominal discomfort. Refuses blood work. Afebrile. Tolerating regular diet. Objective - Vital Signs Vital signs: Vital Signs Temp 97.5 F L 12/23/17 08:00 Pulse 77 12/23/17 08:00 Resp 18 12/23/17 08:00 BP 136/73 12/23/17 08:00 Pulse Ox 93 L 12/23/17 08:00 Intake & Output 12/22/17 12/23/17 12/23/17 18:59 06:59 18:59 Intake Total 440 Output Total 850 Balance -410 Weight 88.5 kg Intake: Oral 440 Output: Urine 850 Other: Voiding Method Urinal Urinal Urinal - Exam General appearance: The patient is alert, oriented, in no acute distress. HET: Head is normocephalic and atraumatic. Pupils are equal and reactive. Oropharynx is clear without lesions. Neck: Supple without lymphadenopathy. Trachea midline. Heart: S1 S2. Regular rate and rhythm. Lungs: No crackles or wheezes are heard. Abdomen: Soft, mild midabdominal tenderness, nondistended with bowel sounds. No peritoneal signs. No palpable organomegaly or masses. Extremities: Normal skin color and turgor. No cyanosis, rash, ulceration, clubbing, or edema. Radial and pedal pulses are 2/4 bilaterally. Neurological: No focal deficits. Strength and sensation are grossly intact. - Labs CBC & Chem 7: 12/20/17 05:34 12/20/17 12:47 Labs: Abnormal Lab Results - Last 24 Hours (Table) 12/22/17 12/22/17 12/22/17 Range/Units 11:22 16:39 20:41 POC Glucose (mg/dL) 141 H 177 H 153 H (75-99) mg/dL 12/23/17 Range/Units 05:49 POC Glucose (mg/dL) 134 H (75-99) mg/dL Microbiology - Last 24 Hours (Table) 12/21/17 13:00 Urine Culture - Final Urine,Voided Assessment and Plan Assessment: 1. History chronic HCV with elevated liver enzymes secondary to suspected superimposed drug-induced liver injury. 2. Acute respiratory failure and pneumonia. 3. Hepatic steatosis. 4. EtOH abuse. Plan: 1. Morning chemistries pending; continue to monitor LFTs Hepatitis C genotype and quantitative measurement pending. Will obtain AFP. Supportive measures. We'll continue to follow with you. Assessment and plan a care discussed with Dr. العراقي Plan: 1. Patient refusing blood work therefore liver function tests cannot be reevaluated. Discharge per medicine. Advised to follow up in GI office after discharge for reevaluation. Assessment and plan a care discussed with Dr. العراقي
--- NOTE | 2017-12-23 11:16 | P.PN ---
<Angie Guardado [place] - Last Filed: 12/23/17 12:11> Subjective Progress Note Date: 12/23/17 [facility] is covering for Dr. Garza. 12/19/17- Patient is being seen examined on rounds, he is seen sitting up in bed. This patient is here for acute COPD exacerbation, tracheobronchitis and she taking and EtOH withdrawal. Patient is seen resting up in bed with safety center at bedside. He is currently on 5 L of supplemental oxygen via nasal cannula, continues to have shortness of breath with exertion and activity. Has a chronic congested cough. He continues on CIWA protocol for DTs. Did has episodes of letheragy yesterday so his xanax, methadone and benzos were on hold. He did wear his bipap last night. He was downgraded from ICU yesterday. All labs and reports have been reviewed. He is hemodynamically stable at this time. 12/19/17-12/20/17- Please see Dr. Suzette Bal notes 12/21/17- patient is being seen examined and evaluated today on rounds. The patient did have some increase in agitation and did require Haldol overnight. He didn't respond well from that. He has used the BiPAP overnight as well with did respond well. Currently he is seen up in bed resting on 5 L of supplemental oxygen via nasal cannula. Does have shortness of breath with exertion and activity. His narcotics have been decreased. Neurology has been on consult as well. He continues on [facility] protocol for EtOH withdrawal and DTs. 12/22/17- Please see Zi Bal notes 12/23/17- patient is being seen examined and evaluated today on rounds. He is resting up in bed on 2 L of supplemental oxygen via nasal cannula. The patient did utilize BiPAP last night. He continues to have some intermittent confusion which is easily diverted. Currently he is being worked up for possible discharge to ECF/rehab facility. He continues on CIWA protocol, has not required any ativan today. Denies any further complaints. Objective - Vital Signs Vital signs: Vital Signs Temp 97.5 F L 12/23/17 08:00 Pulse 77 12/23/17 08:00 Resp 18 12/23/17 08:00 BP 136/73 12/23/17 08:00 Pulse Ox 93 L 03/14/18 08:00 Intake & Output 12/22/17 12/23/17 12/23/17 18:59 06:59 18:59 Intake Total 440 Output Total 850 Balance -410 Weight 88.5 kg Intake: Oral 440 Output: Urine 850 Other: Voiding Method Urinal Urinal Urinal - Exam GENERAL EXAM: Alert, comfortable in no apparent distress. HEAD: Normocephalic. EYES: Normal reaction of pupils, equal size. NOSE: Clear with pink turbinates. THROAT: No erythema or exudates. NECK: No masses, no JVD. CHEST: No chest wall deformity. LUNGS: Patient noted to have poor air entry with coarse breath sounds, improving , . CVS: S1 and S2 normal with no audible mumurs, regular rhythm. ABDOMEN: No hepatosplenomegaly, normal bowel sounds, no guarding or rigidity. EXTREMITIES: Trace edema noted, pedal pulses palpable. CENTRAL NERVOUS SYSTEM: No focal deficits, tone is normal in all 4 extremities. - Labs CBC & Chem 7: 12/20/17 05:34 12/20/17 12:47 Labs: Abnormal Lab Results - Last 24 Hours (Table) 12/22/17 12/22/17 12/22/17 Range/Units 11:22 16:39 20:41 POC Glucose (mg/dL) 141 H 177 H 153 H (75-99) mg/dL 12/23/17 Range/Units 05:49 POC Glucose (mg/dL) 134 H (75-99) mg/dL Microbiology - Last 24 Hours (Table) 12/21/17 13:00 Urine Culture - Final Urine,Voided Assessment and Plan Assessment: Assessment EtOH withdrawal, with DTs Acute hypoxic and hypercapnic respiratory failure Stage III renal failure Right-sided chest wall pain with atypical chest pain appears to be related to musculoskeletal pain, improve Acute COPD exacerbation Bilateral lower lobe pneumonia continue antibiotics History of recent binge drinking with the impending alcohol withdrawal and/or or DTs History of chronic pain syndrome on methadone maintenance program History of pulmonary sarcoidosis with history of chronic persistent asthma Mildly elevated first set of cardiac enzymes however subsequent sets are within normal limit Plan Discharge planning to ECF/rehab Continue breathing treatments continue BiPAP at nighttime when necessary during the day Avoid narcotics and benzodiazepine while he is the somnolent and/or lethargic Gentle rehydration Steroid taper, switched to oral Agree with cardiovascular evaluation DVT and peptic ulcer disease prophylaxis Monitor patient closely for the alcohol withdrawal and impending DTs Continue antibiotics monitor observe clinical course closely further recommendations pending plan of care as per clinical response of the patient, We are covering for Dr. Garza I performed an examination of the patient and discussed their management with the nurse practitioner. I have reviewed the nurse practitioner's note and agree with the documented findings and plan of care. <Elvira Cadet A - Last Filed: 12/23/17 15:01> Objective - Vital Signs Vital signs: Vital Signs Temp 97.2 F L 12/23/17 12:00 Pulse 80 12/23/17 12:04 Resp 18 12/23/17 12:00 BP 128/65 12/23/17 12:00 Pulse Ox 95 12/23/17 12:00 Intake & Output 12/22/17 12/23/17 12/23/17 18:59 06:59 18:59 Intake Total 440 240 Output Total 850 Balance -410 240 Weight 88.5 kg Intake: Oral 440 240 Output: Urine 850 Other: Voiding Method Urinal Urinal Urinal - Labs CBC & Chem 7: 12/20/17 05:34 12/20/17 12:47 Labs: Abnormal Lab Results - Last 24 Hours (Table) 12/21/17 12/22/17 12/22/17 Range/Units 15:13 16:39 20:41 POC Glucose (mg/dL) 177 H 153 H (75-99) mg/dL HCV RNA Qual (PCR) DETECTED H (Not detected) Hepatitis C RNA Quant 1,007,161 H (<12) IU/mL HCV RNA PCR 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 Patient has no needs or complaints at this time. He is to continue Bipap Qhs and with naps. Avoid sedative medications. Alcohol abstinence. Steroid taper. Ok to DC to ECF today. ~Elvira Cadet, DO
[2017-12-23 11:24] LABS: Glucose,Whole Blood 192 mg/dL (75-99)
[2017-12-23] MEDS: METHADONE 5 MG TAB PO SCH (13:13)
[2017-12-23 15:37] VITALS: BMI 28.0
[2017-12-23 16:49] LABS: Glucose,Whole Blood 161 mg/dL (75-99)
--- NOTE | 2017-12-23 18:05 | P.PN ---
Subjective Progress Note Date: 12/23/17 Progress note being dictated for Dr. Riley Interval history: This a 62-year-old gentleman admitted with acute respiratory failure, pneumonia, acute metabolic encephalopathy, DTs, elevated LFTs, positive hepatitis C IgG antibody in a patient reporting chronic hepatitis C. maintained on IV antibiotics of Rocephin,CIWA protocol. Evaluated by GI with recommendations noted. Right upper quadrant abdominal ultrasound pending. Brain CT reporting non acute. EEG moderately slow, no evidence of severe anoxic encephalopathy as per neurology. Abdominal ultrasound limited, reporting hepatic steatosis. Respiratory status improving, currently maintained on 5 L nasal cannula. 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 12/22/2017 maintained on CIWA protocol, remains shaky. Refused BiPAP throughout the night. Refusing lab draw, refusing medications. Sitter at bedside. Tolerating regular diet with no nausea vomiting or diarrhea. Maintaining 93% on 2 L nasal cannula. Afebrile. 12/23/2017 much more alert today, has not required Ativan per CIWA protocol today. Shakiness significantly improved. Sitting up at bedside, good diet intake. Conversing appropriately. Saddened by his 5-year-old dog's recent . Denies chest pain, palpitations or increasing shortness of breath. Afebrile. Declined draw today. Objective - Vital Signs Vital signs: Vital Signs Temp 96.6 F L 12/23/17 16:14 Pulse 80 12/23/17 16:33 Resp 18 12/23/17 16:14 BP 130/65 12/23/17 16:14 Pulse Ox 94 L 12/23/17 16:14 Intake & Output 12/22/17 12/23/17 12/23/17 18:59 06:59 18:59 Intake Total 440 240 Output Total 850 Balance -410 240 Weight 88.5 kg 88.5 kg Intake: Oral 440 240 Output: Urine 850 Other: Voiding Method Urinal Urinal Urinal - Exam PHYSICAL EXAM: VITAL SIGNS: As above GENERAL: Sitting up at side of bed, tearful over his pet's . HEENT: Conjunctivae normal. eyes normal. Oral mucosa moist. NECK: No JVD. No thyroid enlargement. No LNs CARDIOVASCULAR: S1, S2 muffled. No murmur RESPIRATION: Breath sounds diminished in the bases. Coarse rhonchi, no crackles. Minimal Diffuse expiratory wheezing. ABDOMEN: Soft, nontender . No guarding. no masses palpable.Bowel sounds heard. LEGS: positive edema. PSYCHIATRY/NERVOUS SYSTEM:Alert and oriented -3, person and place,Cranial N 2- 12 grossly normal. Moves all 4 limbs. Diffuse weakness No focal deficits. 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 Acute hypoxic, hypercapnic respiratory failure secondary to acute COPD exacerbation and bilateral lower lobe pneumonia 2. Acute metabolic encephalopathy, multifactorial 3. EtOH withdrawal with active DTs, improving 4. Chest pain, atypical as per cardiology 5. Chronic pain syndrome on methadone maintenance program 6. Pulmonary sarcoidosis, history of chronic persistent asthma 7. Chronic hepatitis C 8. Hepatic steatosis Plan: Continue on current medication regime, nebulized bronchodilators, antibiotics, steroids, monitoring and symptomatic treatment. Maintain CIWA protocol. Legal guardian consented to discharge to subacute rehab as per social work. Discharge planning in progress for [facility] tomorrow. The impression and plan of care has been dictated as directed. : I performed a history and examination of this patient, discussed the same with the dictator. I agree with the dictator's note ,documented as a scribe. Any additional findings or plans will be noted.
[2017-12-23 20:49] LABS: Glucose,Whole Blood 216 mg/dL (75-99)
[2017-12-23] MEDS: ALPRAZolam 1 MG TAB PO SCH (21:29)
[2017-12-23] MEDS: HYDROcodone/APAP 5-325MG 1 EACH TAB PO PRN (21:37)
[2017-12-24] MEDS: NITROGLYCERIN OINT 1 INCH/GM PACKET TOPICAL SCH ×4 (05:43→23:09)
[2017-12-24 07:47] LABS: Glucose,Whole Blood 119 mg/dL (75-99)
[2017-12-24] MEDS: INSULIN ASPART 100 UNIT/ML 1 ML 10 ML VIAL SQ SCH ×4 (07:56→21:53)
[2017-12-24] MEDS: FORMOTEROL FUMARATE 20 MCG/2 ML NEBU INHALATION SCH ×2 (08:38→19:48)
[2017-12-24] MEDS: IPRATROPIUM-ALBUTEROL 3 ML NEB INHALATION SCH ×4 (08:38→19:48)
[2017-12-24] MEDS: BUDESONIDE 1 MG/2 ML NEBU INHALATION SCH ×2 (08:38→19:48)
[2017-12-24 08:54] LABS: Basophils # (A) 0.1 k/uL (0-0.2); Basophils % (A) 0 %; Eosinophils % (A) 0 %; HCT 43.5 % (39.0-53.0); HGB 14.8 gm/dL (13.0-17.5); Lymphocytes # (A) 1.9 k/uL (1.0-4.8); Lymphocytes % (A) 13 %; MCHC 34.1 g/dL (31.0-37.0); MCV 105.5 fL (80.0-100.0); Macrocytosis Moderate; Mean Platelet Volume 7.8; Monocytes # (A) 0.9 k/uL (0-1.0); Monocytes % (A) 6 %; Neutrophils # (A) 11.9 k/uL (1.3-7.7); Neutrophils % (A) 80 %; Platelet Count 162 k/uL (150-450); RBC 4.12 m/uL (4.30-5.90)
[2017-12-24 09:03] LABS: ALT 598 U/L (21-72); AST 152 U/L (17-59); Albumin 3.1 g/dL (3.5-5.0); Alkaline Phosphatase 55 U/L (38-126); Anion Gap 6 mmol/L; Blood Urea Nitrogen 26 mg/dL (9-20); Calcium 8.6 mg/dL (8.4-10.2); Carbon Dioxide 32 mmol/L (22-30); Chloride 100 mmol/L (98-107); Glucose 109 mg/dL (74-99); Potassium 3.9 mmol/L (3.5-5.1); Sodium 138 mmol/L (137-145); Total Bilirubin 0.4 mg/dL (0.2-1.3); Total Protein 5.7 g/dL (6.3-8.2)
[2017-12-24] MEDS: cefTRIAXone IN SWFI 1,000 MG/10 ML SYRINGE IVP SCH (09:08)
[2017-12-24] MEDS: DILTIAZEM CD 180 MG CAP.ER.24H PO SCH (09:09)
[2017-12-24] MEDS: THIAMINE 100 MG TAB PO SCH ×2 (09:09→17:28)
[2017-12-24] MEDS: AZITHROMYCIN 500 MG TAB PO SCH (09:09)
[2017-12-24] MEDS: HEPARIN SODIUM,PORCINE 5,000 UNIT/ML 1 ML VIAL SQ SCH ×2 (09:09→21:52)
[2017-12-24] MEDS: predniSONE 20 MG TAB PO SCH (09:09)
[2017-12-24] MEDS: PANTOPRAZOLE 40 MG TABLET PO SCH (09:09)
[2017-12-24] MEDS: ASPIRIN 325 MG TAB PO SCH (09:09)
[2017-12-24] MEDS: HYDROcodone/APAP 5-325MG 1 EACH TAB PO PRN (09:12)
--- NOTE | 2017-12-24 10:11 | P.PN ---
<Angie Guardado E - Last Filed: 12/24/17 11:55> Subjective Progress Note Date: 12/24/17 [facility] is covering for Dr. Garza. 12/19/17- Patient is being seen examined on rounds, he is seen sitting up in bed. This patient is here for acute COPD exacerbation, tracheobronchitis and she taking and EtOH withdrawal. Patient is seen resting up in bed with safety center at bedside. He is currently on 5 L of supplemental oxygen via nasal cannula, continues to have shortness of breath with exertion and activity. Has a chronic congested cough. He continues on CIWA protocol for DTs. Did has episodes of letheragy yesterday so his xanax, methadone and benzos were on hold. He did wear his bipap last night. He was downgraded from ICU yesterday. All labs and reports have been reviewed. He is hemodynamically stable at this time. 12/19/17-12/20/17- Please see Dr. Suzette Bal notes 12/21/17- patient is being seen examined and evaluated today on rounds. The patient did have some increase in agitation and did require Haldol overnight. He didn't respond well from that. He has used the BiPAP overnight as well with did respond well. Currently he is seen up in bed resting on 5 L of supplemental oxygen via nasal cannula. Does have shortness of breath with exertion and activity. His narcotics have been decreased. Neurology has been on consult as well. He continues on [place] protocol for EtOH withdrawal and DTs. 12/22/17- Please see Zi Bal notes 12/23/17- patient is being seen examined and evaluated today on rounds. He is resting up in bed on 2 L of supplemental oxygen via nasal cannula. The patient did utilize BiPAP last night. He continues to have some intermittent confusion which is easily diverted. Currently he is being worked up for possible discharge to ECF/rehab facility. He continues on CIWA protocol, has not required any ativan today. Denies any further complaints. 12/24/17- patient is being seen examined and evaluated and rounds. Patient is resting up in bed on room air. His mentation has improved. His breathing has improved. Patient states feeling much better today. Currently discharge planning is taking place to transfer to ECF later today. Objective - Vital Signs Vital signs: Vital Signs Temp 97.0 F L 12/24/17 06:20 Pulse 86 12/24/17 09:04 Resp 18 12/24/17 09:13 BP 139/89 12/24/17 06:20 Pulse Ox 92 L 12/24/17 06:20 Intake & Output 12/23/17 12/24/17 12/24/17 18:59 06:59 18:59 Intake Total 840 1000 500 Balance 840 1000 500 Weight 88.5 kg 88.5 kg 88.5 kg Intake: Oral 840 1000 500 Other: Voiding Method Urinal Urinal Urinal # Voids 2 # Bowel Movements 1 - Exam GENERAL EXAM: Alert, comfortable in no apparent distress. HEAD: Normocephalic. EYES: Normal reaction of pupils, equal size. NOSE: Clear with pink turbinates. THROAT: No erythema or exudates. NECK: No masses, no JVD. CHEST: No chest wall deformity. LUNGS: Patient noted to better air entry in previous, faint wheezes, continues to improve, . CVS: S1 and S2 normal with no audible mumurs, regular rhythm. ABDOMEN: No hepatosplenomegaly, normal bowel sounds, no guarding or rigidity. EXTREMITIES: Trace edema noted, pedal pulses palpable. CENTRAL NERVOUS SYSTEM: No focal deficits, tone is normal in all 4 extremities. - Labs CBC & Chem 7: 12/24/17 08:01 12/24/17 08:01 Labs: Abnormal Lab Results - Last 24 Hours (Table) 12/21/17 12/23/17 12/23/17 Range/Units 15:13 11:22 16:48 WBC (3.8-10.6) k/uL RBC (4.30-5.90) m/uL MCV (80.0-100.0) fL MCH (25.0-35.0) pg Neutrophils # (1.3-7.7) k/uL Carbon Dioxide (22-30) mmol/L BUN (9-20) mg/dL Glucose (74-99) mg/dL POC Glucose (mg/dL) 192 H 161 H (75-99) mg/dL AST (17-59) U/L ALT (21-72) U/L Total Protein (6.3-8.2) g/dL Albumin (3.5-5.0) g/dL HCV RNA Qual (PCR) DETECTED H (Not detected) Hepatitis C RNA Quant 1,007,161 H (<12) IU/mL HCV RNA PCR log supervisor blueprinting and photocopy/ml 6.00 H (<1.08) Hepatitis C Genotype 1a H 12/23/17 12/24/17 12/24/17 Range/Units 20:32 07:45 08:01 WBC 15.0 H (3.8-10.6) k/uL RBC 4.12 L (4.30-5.90) m/uL MCV 105.5 H (80.0-100.0) fL MCH 36.0 H (25.0-35.0) pg Neutrophils # 11.9 H (1.3-7.7) k/uL Carbon Dioxide (22-30) mmol/L BUN (9-20) mg/dL Glucose (74-99) mg/dL POC Glucose (mg/dL) 216 H 119 H (75-99) mg/dL AST (17-59) U/L ALT (21-72) U/L Total Protein (6.3-8.2) g/dL Albumin (3.5-5.0) g/dL HCV RNA Qual (PCR) (Not detected) Hepatitis C RNA Quant (<12) IU/mL HCV RNA PCR log supervisor blueprinting and photocopy/ml (<1.08) Hepatitis C Genotype 12/24/17 Range/Units 08:01 WBC (3.8-10.6) k/uL RBC (4.30-5.90) m/uL MCV (80.0-100.0) fL MCH (25.0-35.0) pg Neutrophils # (1.3-7.7) k/uL Carbon Dioxide 32 H (22-30) mmol/L BUN 26 H (9-20) mg/dL Glucose 109 H (74-99) mg/dL POC Glucose (mg/dL) (75-99) mg/dL AST 152 H (17-59) U/L ALT 598 H (21-72) U/L Total Protein 5.7 L (6.3-8.2) g/dL Albumin 3.1 L (3.5-5.0) g/dL HCV RNA Qual (PCR) (Not detected) Hepatitis C RNA Quant (<12) IU/mL HCV RNA PCR log supervisor blueprinting and photocopy/ml (<1.08) Hepatitis C Genotype Assessment and Plan Assessment: Assessment EtOH withdrawal, with DTs Acute hypoxic and hypercapnic respiratory failure Stage III renal failure Right-sided chest wall pain with atypical chest pain appears to be related to musculoskeletal pain, improve Acute COPD exacerbation Bilateral lower lobe pneumonia continue antibiotics History of recent binge drinking with the impending alcohol withdrawal and/or or DTs History of chronic pain syndrome on methadone maintenance program History of pulmonary sarcoidosis with history of chronic persistent asthma Mildly elevated first set of cardiac enzymes however subsequent sets are within normal limit Plan Discharge planning to ECF/rehab, cleared from pulm standpoint Continue breathing treatments continue BiPAP at nighttime when necessary during the day Avoid narcotics and benzodiazepine while he is the somnolent and/or lethargic Gentle rehydration Steroid taper, switched to oral Agree with cardiovascular evaluation DVT and peptic ulcer disease prophylaxis Monitor patient closely for the alcohol withdrawal and impending DTs Continue antibiotics monitor observe clinical course closely further recommendations pending plan of care as per clinical response of the patient, We are covering for Dr. Garza I performed an examination of the patient and discussed their management with the nurse practitioner. I have reviewed the nurse practitioner's note and agree with the documented findings and plan of care. <Elvira Cadet A - Last Filed: 12/24/17 15:11> Objective - Vital Signs Vital signs: Vital Signs Temp 97.0 F L 12/24/17 06:20 Pulse 88 12/24/17 12:16 Resp 18 12/24/17 09:13 BP 139/89 12/24/17 06:20 Pulse Ox 92 L 12/24/17 06:20 Intake & Output 12/23/17 12/24/17 12/24/17 18:59 06:59 18:59 Intake Total 840 1000 1950 Balance 840 1000 1950 Weight 88.5 kg 88.5 kg 88.5 kg Intake: Oral 840 1000 1950 Other: Voiding Method Urinal Urinal Urinal # Voids 2 2 # Bowel Movements 1 - Labs CBC & Chem 7: 12/24/17 08:01 12/24/17 08:01 Labs: Abnormal Lab Results - Last 24 Hours (Table) 12/23/17 12/23/17 12/24/17 Range/Units 16:48 20:32 07:45 WBC (3.8-10.6) k/uL RBC (4.30-5.90) m/uL MCV (80.0-100.0) fL MCH (25.0-35.0) pg Neutrophils # (1.3-7.7) k/uL Carbon Dioxide (22-30) mmol/L BUN (9-20) mg/dL Glucose (74-99) mg/dL POC Glucose (mg/dL) 161 H 216 H 119 H (75-99) mg/dL AST (17-59) U/L ALT (21-72) U/L Total Protein (6.3-8.2) g/dL Albumin (3.5-5.0) g/dL 12/24/17 12/24/17 Range/Units 08:01 08:01 WBC 15.0 H (3.8-10.6) k/uL RBC 4.12 L (4.30-5.90) m/uL MCV 105.5 H (80.0-100.0) fL MCH 36.0 H (25.0-35.0) pg Neutrophils # 11.9 H (1.3-7.7) k/uL Carbon Dioxide 32 H (22-30) mmol/L BUN 26 H (9-20) mg/dL Glucose 109 H (74-99) mg/dL POC Glucose (mg/dL) (75-99) mg/dL AST 152 H (17-59) U/L ALT 598 H (21-72) U/L Total Protein 5.7 L (6.3-8.2) g/dL Albumin 3.1 L (3.5-5.0) g/dL Assessment and Plan Assessment: Patient seen and examined. Plan is for discharge to [facility] today. Patient states his breathing is improving. He states he has to go to the bathroom. He has no other needs or complaints at this time. A to discharge from pulmonary standpoint. Follow up with pulmonary in 1-2 weeks. ~Elvira Cadet DO
[2017-12-24 11:24] LABS: Glucose,Whole Blood 94 mg/dL (75-99)
[2017-12-24 17:02] LABS: Glucose,Whole Blood 127 mg/dL (75-99)
[2017-12-24] MEDS ORDERED: Magnesium Replacement Protocol 1 EACH MISC MISCELLANE PRN (17:56)
[2017-12-24] MEDS ORDERED: Potassium Replacement Protocol 1 EACH MISC MISCELLANE PRN (17:56)
--- NOTE | 2017-12-24 17:59 | P.PN ---
Subjective Progress Note Date: 12/24/17 Progress note being dictated for Dr. Riley Interval history: This a 62-year-old gentleman admitted with acute respiratory failure, pneumonia, acute metabolic encephalopathy, DTs, elevated LFTs, positive hepatitis C IgG antibody in a patient reporting chronic hepatitis C. maintained on IV antibiotics of Rocephin,CIWA protocol. Evaluated by GI with recommendations noted. Right upper quadrant abdominal ultrasound pending. Brain CT reporting non acute. EEG moderately slow, no evidence of severe anoxic encephalopathy as per neurology. Abdominal ultrasound limited, reporting hepatic steatosis. Respiratory status improving, currently maintained on 5 L nasal cannula. 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 child care sitter at bedside. 12/22/2017 maintained on CIWA protocol, remains shaky. Refused BiPAP throughout the night. Refusing lab draw, refusing medications. Sitter at bedside. Tolerating regular diet with no nausea vomiting or diarrhea. Maintaining 93% on 2 L nasal cannula. Afebrile. 12/23/2017 much more alert today, has not required Ativan per CIWA protocol today. Shakiness significantly improved. Sitting up at bedside, good diet intake. Conversing appropriately. Saddened by his 5-year-old dog's recent . Denies chest pain, palpitations or increasing shortness of breath. Afebrile. Declined draw today. 12/24/17 continues to do well, has not required any Ativan. Good diet intake, with no nausea vomiting or diarrhea. LFTs improving. Sensorium significantly improved. Afebrile, WBC 15. Objective - Vital Signs Vital signs: Vital Signs Temp 98.7 F 12/24/17 15:00 Pulse 100 12/24/17 16:51 Resp 16 12/24/17 15:57 BP 125/75 12/24/17 15:00 Pulse Ox 93 L 12/24/17 15:00 Intake & Output 12/23/17 12/24/17 12/24/17 18:59 06:59 18:59 Intake Total 840 1000 1950 Balance 840 1000 1950 Weight 88.5 kg 88.5 kg 88.5 kg Intake: Oral 840 1000 1950 Other: Voiding Method Urinal Urinal Urinal # Voids 2 2 # Bowel Movements 1 - Exam PHYSICAL EXAM: VITAL SIGNS: As above GENERAL: Sitting up at in chair, no acute distress HEENT: Conjunctivae normal. eyes normal. Oral mucosa moist. NECK: No JVD. No thyroid enlargement. No LNs CARDIOVASCULAR: S1, S2 muffled. No murmur RESPIRATION: Breath sounds diminished in the bases. Coarse rhonchi, no crackles. Occasional Minimal Diffuse expiratory wheezing. ABDOMEN: Soft, nontender . No guarding. no masses palpable.Bowel sounds heard. LEGS: positive edema. PSYCHIATRY/NERVOUS SYSTEM:Alert and oriented -3, person and place,Cranial N 2- 12 grossly normal. Moves all 4 limbs. Diffuse weakness No focal deficits. Skin: no ulcer no rash - Labs CBC & Chem 7: 12/24/17 08:01 12/24/17 08:01 Labs: Abnormal Lab Results - Last 24 Hours (Table) 12/23/17 12/24/17 12/24/17 Range/Units 20:32 07:45 08:01 WBC 15.0 H (3.8-10.6) k/uL RBC 4.12 L (4.30-5.90) m/uL MCV 105.5 H (80.0-100.0) fL MCH 36.0 H (25.0-35.0) pg Neutrophils # 11.9 H (1.3-7.7) k/uL Carbon Dioxide (22-30) mmol/L BUN (9-20) mg/dL Glucose (74-99) mg/dL POC Glucose (mg/dL) 216 H 119 H (75-99) mg/dL AST (17-59) U/L ALT (21-72) U/L Total Protein (6.3-8.2) g/dL Albumin (3.5-5.0) g/dL 12/24/17 12/24/17 Range/Units 08:01 16:34 WBC (3.8-10.6) k/uL RBC (4.30-5.90) m/uL MCV (80.0-100.0) fL MCH (25.0-35.0) pg Neutrophils # (1.3-7.7) k/uL Carbon Dioxide 32 H (22-30) mmol/L BUN 26 H (9-20) mg/dL Glucose 109 H (74-99) mg/dL POC Glucose (mg/dL) 127 H (75-99) mg/dL AST 152 H (17-59) U/L ALT 598 H (21-72) U/L Total Protein 5.7 L (6.3-8.2) g/dL Albumin 3.1 L (3.5-5.0) g/dL Assessment and Plan Assessment: 1. Acute hypoxic, hypercapnic respiratory failure secondary to acute COPD exacerbation and bilateral lower lobe pneumonia 2. Acute metabolic encephalopathy, multifactorial 3. EtOH withdrawal with active DTs, improving 4. Chest pain, atypical as per cardiology 5. Chronic pain syndrome on methadone maintenance program 6. Pulmonary sarcoidosis, history of chronic persistent asthma 7. Chronic hepatitis C 8. Hepatic steatosis Plan: Continue on current medication regime, nebulized bronchodilators, antibiotics, steroids, monitoring and symptomatic treatment. Close monitoring of electrolytes with repeat labs ordered for a.m. Electrolytes to be supplemented as per replacement protocol as ordered .Maintain CIWA protocol. Discharge planning in progress for [facility] tomorrow, preauthorization pending. The impression and plan of care has been dictated as directed. : I performed a history and examination of this patient, discussed the same with the dictator. I agree with the dictator's note ,documented as a scribe. Any additional findings or plans will be noted.
--- NOTE | 2017-12-24 20:34 | P.PN ---
Subjective Progress Note Date: 12/24/17 This patient is a 62-year-old male with history of multiple complex medical problems including history of chronic hepatitis C infection and severe COPD. Patient was seen in neurology consultation for altered mental status. He had evidence of hypoxic respiratory failure and is being evaluated for hypoxic/ anoxic encephalopathy. Patient underwent a routine EEG today which is to be reviewed. The EEG was reviewed and is moderately slow with no epileptiform discharges seen on the exam. Patient was examined today bedside and is much more awake and alert. There is no evidence for any severe anoxic encephalopathy based on this EEG. Patient did undergo a computed tomography scan of the brain yesterday which revealed no acute findings. Chronic cortical atrophy was noted with deep white matter ischemic changes. Patient was initially admitted to hospital for respiratory failure. He was diagnosed with pneumonia and has been treated with broad-spectrum antibiotics. Patient is being evaluated for possibility of chronic hepatitis C infection. He is been seen by gastroenterology and wear waiting the further recommendations. Patient is doing better today in terms of his mental status. He has been using BiPAP at bedtime. Would agree to avoid use of narcotics as well as benzodiazepines as this may produce more lethargy and the patient. Patient is anxious to be discharged home soon. Patient underwent abdominal ultrasound results of which indicate hepatic steatosis. Gastroenterology is following him. Patient is continuing on a [facility] protocol for possible DTs. He has a history of alcohol abuse in the past. Patient has been reluctant to use BiPAP at bedtime. We will await further recommendations from pulmonary medicine. Continue to limit use of sedating medications for this patient. The patient is showing much improvement today in terms of his mental status. He states he has been up and ambulating and walking in the hallway with no difficulties. He is being considered for possible discharge to [facility] tomorrow. He would benefit from subacute rehab as well. We will continue follow his progress closely during this admission. Objective - Vital Signs Vital signs: Vital Signs Temp 98.7 F 12/24/17 15:00 Pulse 100 12/24/17 16:51 Resp 16 12/24/17 15:57 BP 125/75 12/24/17 15:00 Pulse Ox 93 L 12/24/17 15:00 Intake & Output 12/23/17 12/24/17 12/24/17 18:59 06:59 18:59 Intake Total 840 1000 2350 Balance 840 1000 2350 Weight 88.5 kg 88.5 kg 88.5 kg Intake: Oral 840 1000 2350 Other: Voiding Method Urinal Urinal Urinal # Voids 2 2 # Bowel Movements 1 - Exam Physical examination: PHYSICAL EXAMINATION: Patient is resting comfortably in bed. VITAL SIGNS: Blood pressure is [125/75]. Heart rate is [105]. Respiration is [16 ]. Temperature is [98.7]. HEENT: Head is atraumatic, neck is supple, there were no carotid bruits. CHEST: Lungs are clear to auscultation and percussion. CARDIAC: S1, S2 normal rate and rhythm. There is no murmur. ABDOMEN: Soft and nontender. Bowel sounds are present. EXTREMITIES: There is no pedal edema. Peripheral pulses are present. Neurological examination: Patient is awake and alert and oriented and able to answer questions today quite appropriately. There is improvement in his mental status today as compared to yesterday. Cranial nerves II through XII are grossly intact. Motor examination fails to reveal any focal weakness. Deep tendon reflexes are 1+ and symmetric. Plantar responses flexor bilaterally. - Labs CBC & Chem 7: 12/24/17 08:01 12/24/17 08:01 Labs: Abnormal Lab Results - Last 24 Hours (Table) 12/23/17 12/24/17 12/24/17 Range/Units 20:32 07:45 08:01 WBC 15.0 H (3.8-10.6) k/uL RBC 4.12 L (4.30-5.90) m/uL MCV 105.5 H (80.0-100.0) fL MCH 36.0 H (25.0-35.0) pg Neutrophils # 11.9 H (1.3-7.7) k/uL Carbon Dioxide (22-30) mmol/L BUN (9-20) mg/dL Glucose (74-99) mg/dL POC Glucose (mg/dL) 216 H 119 H (75-99) mg/dL AST (17-59) U/L ALT (21-72) U/L Total Protein (6.3-8.2) g/dL Albumin (3.5-5.0) g/dL 12/24/17 12/24/17 Range/Units 08:01 16:34 WBC (3.8-10.6) k/uL RBC (4.30-5.90) m/uL MCV (80.0-100.0) fL MCH (25.0-35.0) pg Neutrophils # (1.3-7.7) k/uL Carbon Dioxide 32 H (22-30) mmol/L BUN 26 H (9-20) mg/dL Glucose 109 H (74-99) mg/dL POC Glucose (mg/dL) 127 H (75-99) mg/dL AST 152 H (17-59) U/L ALT 598 H (21-72) U/L Total Protein 5.7 L (6.3-8.2) g/dL Albumin 3.1 L (3.5-5.0) g/dL Assessment and Plan (1) Chronic hypoxemic respiratory failure Current Visit: Yes Status: Acute Code(s): J96.11 - CHRONIC RESPIRATORY FAILURE WITH HYPOXIA SNOMED Code(s): 547699187 (2) Acute encephalopathy Current Visit: Yes Status: Acute Code(s): G93.40 - ENCEPHALOPATHY, UNSPECIFIED SNOMED Code(s): 30012089 (3) Pulmonary sarcoidosis Current Visit: Yes Status: Acute Code(s): D86.0 - SARCOIDOSIS OF LUNG SNOMED Code(s): 10376153 (4) Alcohol intoxication Current Visit: No Status: Acute Code(s): F10.929 - ALCOHOL USE, UNSPECIFIED WITH INTOXICATION, UNSPECIFIED SNOMED Code(s): 04102045 (5) COPD exacerbation Current Visit: No Status: Acute Code(s): J44.1 - CHRONIC OBSTRUCTIVE PULMONARY DISEASE W (ACUTE) EXACERBATION SNOMED Code(s): 651483380388126 Plan: Patient is doing much better today in terms of his mental status. Patient has been able to get up and ambulate and walk and is room as well as in the hallway without much assistance. He is being considered for possible discharge to [facility] tomorrow. He is showing improvement in his history of severe hypoxic respiratory failure. As noted his EEG was done last week which did not show severe slowing. Patient seems to be much more awake and alert today as well and is able to answer all questions appropriately. We will continue to follow his progress closely during this admission. His overall prognosis remains guarded at this time. We'll await further recommendations from other specialists seeing this patient. He is being considered for discharge to ECF possibly tomorrow.
[2017-12-24] MEDS ORDERED: LORazepam 2 MG/ML INJ IV SCH (21:00)
[2017-12-24 21:07] LABS: Glucose,Whole Blood 142 mg/dL (75-99)
[2017-12-24] MEDS: ALPRAZolam 1 MG TAB PO SCH (21:52)
[2017-12-25] MEDS: NITROGLYCERIN OINT 1 INCH/GM PACKET TOPICAL SCH ×2 (05:56→12:24)
[2017-12-25 07:20] VITALS: BP 144/80; RESP 20; TEMP 96.9
[2017-12-25] MEDS: IPRATROPIUM-ALBUTEROL 3 ML NEB INHALATION SCH ×2 (07:42→11:19)
[2017-12-25] MEDS: BUDESONIDE 1 MG/2 ML NEBU INHALATION SCH (07:42)
[2017-12-25] MEDS: FORMOTEROL FUMARATE 20 MCG/2 ML NEBU INHALATION SCH (07:42)
[2017-12-25 07:47] LABS: Glucose,Whole Blood 83 mg/dL (75-99)
[2017-12-25] MEDS: INSULIN ASPART 100 UNIT/ML 1 ML 10 ML VIAL SQ SCH ×2 (08:35→12:24)
[2017-12-25] MEDS: ASPIRIN 325 MG TAB PO SCH (09:18)
[2017-12-25] MEDS: cefTRIAXone IN SWFI 1,000 MG/10 ML SYRINGE IVP SCH (09:18)
[2017-12-25] MEDS: HEPARIN SODIUM,PORCINE 5,000 UNIT/ML 1 ML VIAL SQ SCH (09:18)
[2017-12-25] MEDS: PANTOPRAZOLE 40 MG TABLET PO SCH (09:18)
[2017-12-25] MEDS: THIAMINE 100 MG TAB PO SCH (09:18)
[2017-12-25] MEDS: AZITHROMYCIN 500 MG TAB PO SCH (09:18)
[2017-12-25] MEDS: DILTIAZEM CD 180 MG CAP.ER.24H PO SCH (09:18)
[2017-12-25] MEDS: predniSONE 20 MG TAB PO SCH (09:18)
[2017-12-25] MEDS: HYDROcodone/APAP 5-325MG 1 EACH TAB PO PRN (09:20)
[2017-12-25 09:26] VITALS: PULSE 95
--- NOTE | 2017-12-25 11:15 | P.PN ---
Subjective Progress Note Date: 12/25/17 [facility] is covering for Dr. Garza. 12/19/17- Patient is being seen examined on rounds, he is seen sitting up in bed. This patient is here for acute COPD exacerbation, tracheobronchitis and she taking and EtOH withdrawal. Patient is seen resting up in bed with safety center at bedside. He is currently on 5 L of supplemental oxygen via nasal cannula, continues to have shortness of breath with exertion and activity. Has a chronic congested cough. He continues on CIWA protocol for DTs. Did has episodes of letheragy yesterday so his xanax, methadone and benzos were on hold. He did wear his bipap last night. He was downgraded from ICU yesterday. All labs and reports have been reviewed. He is hemodynamically stable at this time. 12/19/17-12/20/17- Please see Dr. Suzette Bal notes 12/21/17- patient is being seen examined and evaluated today on rounds. The patient did have some increase in agitation and did require Haldol overnight. He didn't respond well from that. He has used the BiPAP overnight as well with did respond well. Currently he is seen up in bed resting on 5 L of supplemental oxygen via nasal cannula. Does have shortness of breath with exertion and activity. His narcotics have been decreased. Neurology has been on consult as well. He continues on [place] protocol for EtOH withdrawal and DTs. 12/22/17- Please see Zi Bal notes 12/23/17- patient is being seen examined and evaluated today on rounds. He is resting up in bed on 2 L of supplemental oxygen via nasal cannula. The patient did utilize BiPAP last night. He continues to have some intermittent confusion which is easily diverted. Currently he is being worked up for possible discharge to ECF/rehab facility. He continues on CIWA protocol, has not required any ativan today. Denies any further complaints. 12/24/17- patient is being seen examined and evaluated and rounds. Patient is resting up in bed on room air. His mentation has improved. His breathing has improved. Patient states feeling much better today. Currently discharge planning is taking place to transfer to ECF later today. 12/25/17- patient is being seen examined and evaluated today in rounds. He is resting up in bed on room air. Discharge planning a process to ECF later today. Denies any shortness of breath cough or congestion at this time. He has not required any Ativan per [facility] protocol. He is afebrile no further complaints. All labs and reports have been reviewed. Objective - Vital Signs Vital signs: Vital Signs Temp 96.9 F L 12/25/17 07:00 Pulse 95 12/25/17 09:22 Resp 20 12/25/17 09:22 BP 144/80 12/25/17 07:00 Pulse Ox 91 L 12/25/17 07:00 Intake & Output 12/24/17 12/25/17 12/25/17 18:59 06:59 18:59 Intake Total 2350 1450 600 Output Total 300 Balance 2350 1450 300 Weight 88.5 kg 88.5 kg 88.5 kg Intake: Oral 2350 1450 600 Output: Urine 300 Other: Voiding Method Urinal Urinal Urinal # Voids 2 3 3 - Exam GENERAL EXAM: Alert, comfortable in no apparent distress. HEAD: Normocephalic. EYES: Normal reaction of pupils, equal size. NOSE: Clear with pink turbinates. THROAT: No erythema or exudates. NECK: No masses, no JVD. CHEST: No chest wall deformity. LUNGS: Patient noted to better air entry in previous, faint wheezes, continues to improve, . CVS: S1 and S2 normal with no audible mumurs, regular rhythm. ABDOMEN: No hepatosplenomegaly, normal bowel sounds, no guarding or rigidity. EXTREMITIES: Trace edema noted, pedal pulses palpable. CENTRAL NERVOUS SYSTEM: No focal deficits, tone is normal in all 4 extremities. - Labs CBC & Chem 7: 12/24/17 08:01 12/24/17 08:01 Labs: Abnormal Lab Results - Last 24 Hours (Table) 12/24/17 12/24/17 Range/Units 16:34 20:55 POC Glucose (mg/dL) 127 H 142 H (75-99) mg/dL Assessment and Plan Assessment: Assessment EtOH withdrawal, with DTs Acute hypoxic and hypercapnic respiratory failure Stage III renal failure Right-sided chest wall pain with atypical chest pain appears to be related to musculoskeletal pain, improve Acute COPD exacerbation Bilateral lower lobe pneumonia continue antibiotics History of recent binge drinking with the impending alcohol withdrawal and/or or DTs History of chronic pain syndrome on methadone maintenance program History of pulmonary sarcoidosis with history of chronic persistent asthma Mildly elevated first set of cardiac enzymes however subsequent sets are within normal limit Plan Discharge planning to ECF/rehab, cleared from pulm standpoint Continue breathing treatments continue BiPAP at nighttime when necessary during the day Avoid narcotics and benzodiazepine while he is the somnolent and/or lethargic Gentle rehydration Steroid taper, switched to oral Agree with cardiovascular evaluation DVT and peptic ulcer disease prophylaxis Monitor patient closely for the alcohol withdrawal and impending DTs Continue antibiotics monitor observe clinical course closely further recommendations pending plan of care as per clinical response of the patient, We are covering for Dr. Garza I performed an examination of the patient and discussed their management with the nurse practitioner. I have reviewed the nurse practitioner's note and agree with the documented findings and plan of care.
[2017-12-25 12:00] LABS: Glucose,Whole Blood 91 mg/dL (75-99)
--- NOTE | 2017-12-25 12:00 | P.DS ---
Providers Date of admission: 12/16/17 08:41 Expected date of discharge: 12/25/17 Attending physician: Stella Riley Consults: 12/13/17 01:26 Consult Physician Urgent Consulting Provider: Apolinar Toledo Consult Reason/Comments: Chest pain Do you want consulting provider notified?: Yes 12/13/17 12:01 Consult Physician Routine Consulting Provider: Durga Garza Consult Reason/Comments: knew the pt Do you want consulting provider notified?: Yes 12/20/17 12:47 Consult Physician Urgent Consulting Provider: Daisy Castle Consult Reason/Comments: mental status change Do you want consulting provider notified?: Yes Primary care physician: Durga Garza Hospital Course: Final Diagnoses: 1. Acute hypoxic, hypercapnic respiratory failure secondary to acute COPD exacerbation and bilateral lower lobe pneumonia 2. Acute metabolic encephalopathy, multifactorial 3. EtOH withdrawal with active DTs, improved 4. Chest pain, atypical as per cardiology 5. Chronic pain syndrome on methadone maintenance program 6. Pulmonary sarcoidosis, history of chronic persistent asthma 7. Chronic hepatitis C 8. Hepatic steatosis Hospital course:This a 62-year-old gentleman admitted with acute respiratory failure, pneumonia, acute metabolic encephalopathy, DTs, elevated LFTs, positive hepatitis C IgG antibody in a patient reporting chronic hepatitis C. evaluated by cardiology, neurology, GI. Maintained on IV antibiotics of Rocephin ,CIWA protocol. Brain CT reporting non acute. EEG moderately slow, no evidence of severe anoxic encephalopathy as per neurology. Abdominal ultrasound limited, reporting hepatic steatosis. Significant clinical improvement. Cleared by all consults for discharge. Patient is being discharged to [facility] subacute rehab. In a stable condition with guarded prognosis. Physical Exam: VSS, alert and oriented 3, no acute distress.CV; regular S1 and S2,LUNGS: Bilateral bases diminished, coarse rhonchi,ABD: Soft nontender positive bowel sounds. Neuro: No focal deficits/ The impression and plan of care has been dictated as directed. : I performed a history and examination of this patient, discussed the same with the dictator. I agree with the dictator's note ,documented as a scribe. Any additional findings or plans will be noted. Time taken 35 minutes Patient Condition at Discharge: Stable Plan - Discharge Summary Discharge Rx Participant: No New Discharge Prescriptions: New Pantoprazole [Protonix] 40 mg PO AC-BRKFST tablet.dr predniSONE 10 mg PO DIRECTED #30 tab Aspirin 325 mg PO DAILY tab Thiamine [Vitamin B-1] 100 mg PO BID@1200,1700 tab LORazepam [Ativan] 1 mg PO TID PRN #20 tab PRN Reason: Agitation Azithromycin [Zithromax] 500 mg PO DAILY #5 tab Cefuroxime Axetil [Ceftin] 500 mg PO BID #10 tab Isosorbide Mononitrate ER [Imdur] 30 mg PO DAILY #1 tab Folic Acid 1 mg PO DAILY #30 tablet Multivitamins, Thera [Multivitamin (formulary)] 1 tab PO DAILY #30 tablet Continue Budesonide-Formot 160-4.5 Mcg [Symbicort 160-4.5 Mcg Inhaler] 2 puff INHALATION RT-BID #1 inhaler Diltiazem Cd [Cardizem CD] 180 mg PO DAILY #24 cap.er.24h Changed Ipratropium-Albuterol Nebulize [Duoneb 0.5 mg-3 mg/3 ml Soln] 3 ml INHALATION RT-QID #300 ampul.neb Discharge Medication List Budesonide-Formot 160-4.5 Mcg [Symbicort 160-4.5 Mcg Inhaler] 2 puff INHALATION RT-BID #1 inhaler 08/08/17 [Rx] Diltiazem Cd [Cardizem CD] 180 mg PO DAILY #24 cap.er.24h 08/08/17 [Rx] Ipratropium-Albuterol Nebulize [Duoneb 0.5 mg-3 mg/3 ml Soln] 3 ml INHALATION RT -QID #300 ampul.neb 12/14/17 [Rx] Pantoprazole [Protonix] 40 mg PO AC-BRKFST tablet. 12/14/17 [Rx] predniSONE 10 mg PO DIRECTED #30 tab 12/14/17 [Rx] Aspirin 325 mg PO DAILY tab 12/19/17 [Rx] Thiamine [Vitamin B-1] 100 mg PO BID@1200,1700 tab 12/19/17 [Rx] LORazepam [Ativan] 1 mg PO TID PRN #20 tab 12/23/17 [Rx] Azithromycin [Zithromax] 500 mg PO DAILY #5 tab 12/25/17 [Rx] Cefuroxime Axetil [Ceftin] 500 mg PO BID #10 tab 12/25/17 [Rx] Folic Acid 1 mg PO DAILY #30 tablet 12/25/17 [Rx] Isosorbide Mononitrate ER [Imdur] 30 mg PO DAILY #1 tab 12/25/17 [Rx] Multivitamins, Thera [Multivitamin (formulary)] 1 tab PO DAILY #30 tablet [Rx] Follow up Appointment(s)/Referral(s): Tyree Bryant MD [REFERRING] - 3 Days Melissa Arana MD [STAFF PHYSICIAN] - 1 Week Mellissa Nichole PAC [REFERRING] - 01/28/18 9:00 am Durga Garza MD [Primary Care Provider] - 1 Week (After discharge from subacute rehab) Ambulatory/Diagnostic Orders: Complete Blood Count w/diff [LAB.AMB] Time Frame: 3 Days, Location: Determined By Patient Patient Instructions/Handouts: Chest Pain (ED), COPD (Chronic Obstructive Pulmonary Disease) (DC), Alcohol Withdrawal (DC) Activity/Diet/Wound Care/Special Instructions: [facility]. Diet: Cardiac Activity: Limited until follow up Legal guardian CBC,CMP in 3 days Discharge Disposition: TRANSFER TO SNF/ECF
== END 2017-12-25 14:40 | DRG 189 ==
LOC: EC 21:54 → EEVIPCON 21:54 → 6SEL 12-13 01:30 → 3SUR 12-13 23:05 → 3OBS 12-14 08:00 → 6ICU 12-15 21:03 → OBSVTOIN 12-16 08:41 → 6SEL 12-17 11:52 → 4MS4W 12-23 18:24
PROVIDERS: ADMIT Hospitalist; ATTEND Hospitalist
DX: J96.21 Acute and chronic respiratory failure with hypoxia (principal); J69.0 Pneumonitis due to inhalation of food and vomit; G93.41 Metabolic encephalopathy; F10.231 Alcohol dependence with withdrawal delirium; E87.2 Acidosis; K70.9 Alcoholic liver disease, unspecified; N18.3 Chronic kidney disease, stage 3 (moderate); I13.0 Hypertensive heart and chronic kidney disease with heart failure and stage 1 through stage 4 chronic kidney disease, or unspecified chronic kidney disease; I50.32 Chronic diastolic (congestive) heart failure; J44.0 Chronic obstructive pulmonary disease with (acute) lower respiratory infection; J44.1 Chronic obstructive pulmonary disease with (acute) exacerbation; J96.22 Acute and chronic respiratory failure with hypercapnia; K76.0 Fatty (change of) liver, not elsewhere classified; Z53.20 Procedure and treatment not carried out because of patient's decision for unspecified reasons; B18.2 Chronic viral hepatitis C; D86.0 Sarcoidosis of lung; F17.200 Nicotine dependence, unspecified, uncomplicated; F41.9 Anxiety disorder, unspecified; G47.33 Obstructive sleep apnea (adult) (pediatric); G89.4 Chronic pain syndrome; I25.10 Atherosclerotic heart disease of native coronary artery without angina pectoris; Z79.51 Long term (current) use of inhaled steroids; Z79.82 Long term (current) use of aspirin; Z79.891 Long term (current) use of opiate analgesic; Z82.49 Family history of ischemic heart disease and other diseases of the circulatory system; Z86.14 Personal history of Methicillin resistant Staphylococcus aureus infection; Z91.81 History of falling
CPT/HCPCS: 36415; 36600; 70450; 71045; 71046; 74018; 76700; 80048; 80053; 80061; 80074; 80076; 80306; 81003; 82075; 82140; 82330; 82550; 82553; 82805; 83036; 83735; 84100; 84132; 84484; 85025; 85379; 85610; 85730; 87086; 87522; 87902; 93005; 94640; 94660; 95819; 96361; 96374; 99285

== ENCOUNTER 2018-01-06 14:36 | Inpatient (IN) | payer OTHER ==
[2018-01-06] MEDS ORDERED: SODIUM CHLORIDE 0.9% 1,000 ML IV STA (14:53)
[2018-01-06] MEDS ORDERED: NALOXONE 0.4 MG/ML 1 ML VIAL IV STA (14:53)
[2018-01-06] MEDS ORDERED: NALOXONE 0.4 MG/ML 10 ML VIAL IVP STA (14:54)
--- NOTE | 2018-01-06 15:02 | ED ---
General Adult HPI - General Chief complaint: Overdose Stated complaint: Mental health Time Seen by Provider: 01/06/18 14:38 Source: EMS, RN notes reviewed Mode of arrival: EMS Limitations: no limitations - History of Present Illness Initial comments: 62 yo male presents to the ER with cc of overdose. Patient was last seen by the neighbor last night and then today at noon the neighbor found the patient unresponsive. There is suspicion for overdose of methadone and ativan. Patient will open eyes on exam but he will not answer my questions. His dog just and he has not heat in his house. No other history due to patient's condition. - Related Data Home Medications Medication Instructions Recorded Confirmed Folic Acid 1 mg PO DAILY@1200 01/06/18 01/06/18 Methadone [Dolophine] 20 mg PO Q12H 01/06/18 01/06/18 Multivitamins, Thera [Multivitamin 1 tab PO DAILY@1200 01/06/18 01/06/18 (formulary)] Previous Rx's Medication Instructions Recorded Budesonide-Formot 160-4.5 Mcg 2 puff INHALATION RT-BID #1 inhaler 08/08/17 [Symbicort 160-4.5 Mcg Inhaler] Ipratropium-Albuterol Nebulize 3 ml INHALATION RT-QID #300 12/14/17 [Duoneb 0.5 mg-3 mg/3 ml Soln] ampul.neb Pantoprazole [Protonix] 40 mg PO AC-BRKFST tablet. 12/14/17 Aspirin 325 mg PO DAILY tab 12/19/17 Thiamine [Vitamin B-1] 100 mg PO BID@1200,1700 tab 12/19/17 LORazepam [Ativan] 1 mg PO TID PRN #20 tab 12/23/17 Isosorbide Mononitrate ER [Imdur] 30 mg PO DAILY #1 tab 12/25/17 Allergies Allergy/AdvReac Type Severity Reaction Status Date / Time [place] Feces Allergy Dyspnea Uncoded 01/06/18 15:35 Review of Systems ROS Statement: Those systems with pertinent positive or pertinent negative responses have been documented in the HPI. ROS Other: All systems not noted in ROS Statement are negative. 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 states his lung Past Surgical History: Orthopedic Surgery Additional Past Surgical History / Comment(s): neck fracture, Past Anesthesia/Blood Transfusion Reactions: No Reported Reaction Past Psychological History: Anxiety Smoking Status: Former smoker - Past Family History Father Family Medical History: Congestive Heart Failure (CHF), Coronary Artery Disease (CAD), Hypertension Mother Family Medical History: Cancer, Hypertension Additional Family Medical History / Comment(s): Melanoma on nose. General Exam Limitations: no limitations General appearance: alert, in no apparent distress Eye exam: Present: normal appearance (pinpoint pupils), EOMI. Absent: conjunctival injection, periorbital swelling, periorbital tenderness ENT exam: Present: normal exam, mucous membranes moist Neck exam: Present: normal inspection. Absent: tenderness, meningismus, lymphadenopathy Respiratory exam: Present: normal lung sounds bilaterally. Absent: respiratory distress, wheezes, rales, rhonchi, stridor Cardiovascular Exam: Present: regular rate, normal rhythm, normal heart sounds. Absent: systolic murmur, diastolic murmur, rubs, gallop, clicks Back exam: Present: normal inspection Neurological exam: Present: alert Skin exam: Present: warm, dry, intact Course Vital Signs 01/06/18 01/06/18 14:43 17:19 Temperature 97 F L 98.5 F Pulse Rate 100 112 H Respiratory 32 H 20 Rate Blood Pressure 146/85 128/69 O2 Sat by Pulse 95 93 L Oximetry - Reevaluation(s) Reevaluation #1: 01/06/18 17:25 Patient reassessed at this time. Patient continues to deny that he overdosed any medications. He denies any pain. Reevaluation #2: 01/06/18 18:17 At this time patient does meet sepsis criteria and Zosyn has been ordered. EKG Findings - EKG Comments: EKG Findings:: Sinus tachycardia 112 bpm, normal axis, no atopy, no S-T depressions or elevations, Medical Decision Making - Medical Decision Making 62 yo male presents with cc of overdose. Patient continues to be a poor historian the patient continues to be alert however patient does appear to be altered. At this time lab work is been reviewed. At this time patient does have a white count with concern for possible pneumonia on x-ray. Due to the history of finding patient responsive there is concern for possible aspiration and we will start the patient on Zosyn for this. We did give the patient Narcan which did help him become more alert. He refuses to admit if he overdosed he states he does not recall the last thing that happened to him. He will admit the patient for continued care and hydration. Patient is in agreement with this plan. There is concern that this was a possible suicidal attempt. We will put a psychiatric consult on the chart. - Lab Data Result diagrams: 01/06/18 15:15 01/06/18 15:15 Lab Results 01/06/18 01/06/18 01/06/18 Range/Units 15:15 15:15 15:15 WBC 13.9 H (3.8-10.6) k/uL RBC 4.36 (4.30-5.90) m/uL Hgb 15.2 (13.0-17.5) gm/dL Hct 47.4 (39.0-53.0) % MCV 108.6 H (80.0-100.0) fL MCH 34.9 (25.0-35.0) pg MCHC 32.1 (31.0-37.0) g/dL RDW 14.5 (11.5-15.5) % Plt Count 172 (150-450) k/uL Neutrophils % 93 % Lymphocytes % 3 % Monocytes % 2 % Eosinophils % 1 % Basophils % 0 % Neutrophils # 12.9 H (1.3-7.7) k/uL Lymphocytes # 0.4 L (1.0-4.8) k/uL Monocytes # 0.3 (0-1.0) k/uL Eosinophils # 0.1 (0-0.7) k/uL Basophils # 0.0 (0-0.2) k/uL Macrocytosis Marked Sodium 140 (137-145) mmol/L Potassium 5.7 H (3.5-5.1) mmol/L Chloride 97 L (98-107) mmol/L Carbon Dioxide 25 (22-30) mmol/L Anion Gap 18 mmol/L BUN 25 H (9-20) mg/dL Creatinine 0.80 (0.66-1.25) mg/dL Est GFR (CKD-EPI)AfAm >90 (>60 ml/min/1.73 sqM) Est GFR (CKD-EPI)NonAf >90 (>60 ml/min/1.73 sqM) Glucose 105 H (74-99) mg/dL Plasma Lactic Acid Ryan (0.7-2.0) mmol/L Calcium 9.8 (8.4-10.2) mg/dL Total Bilirubin 2.3 H (0.2-1.3) mg/dL AST 641 H (17-59) U/L ALT 832 H (21-72) U/L Alkaline Phosphatase 75 (38-126) U/L Total Creatine Kinase 485 H (55-170) U/L CK-MB (CK-2) 21.5 H* (0.0-2.4) ng/mL CK-MB (CK-2) Rel Index 4.4 Troponin I <0.012 (0.000-0.034) ng/mL Total Protein 7.5 (6.3-8.2) g/dL Albumin 4.0 (3.5-5.0) g/dL Urine Color Urine Appearance (Clear) Urine pH (5.0-8.0) Ur Specific [place] (1.001-1.035) Urine Protein (Negative) Urine Glucose (UA) (Negative) Urine Blood (Negative) Urine Nitrite (Negative) Urine Bilirubin (Negative) Urine Urobilinogen (<2.0) mg/dL Ur Leukocyte Esterase (Negative) Salicylates <1.0 mg/dL Acetaminophen <10.0 ug/mL Serum Alcohol <10 mg/dL 01/06/18 01/06/18 Range/Units 15:42 17:10 WBC (3.8-10.6) k/uL RBC (4.30-5.90) m/uL Hgb (13.0-17.5) gm/dL Hct (39.0-53.0) % MCV (80.0-100.0) fL MCH (25.0-35.0) pg MCHC (31.0-37.0) g/dL RDW (11.5-15.5) % Plt Count (150-450) k/uL Neutrophils % % Lymphocytes % % Monocytes % % Eosinophils % % Basophils % % Neutrophils # (1.3-7.7) k/uL Lymphocytes # (1.0-4.8) k/uL Monocytes # (0-1.0) k/uL Eosinophils # (0-0.7) k/uL Basophils # (0-0.2) k/uL Macrocytosis Sodium (137-145) mmol/L Potassium (3.5-5.1) mmol/L Chloride (98-107) mmol/L Carbon Dioxide (22-30) mmol/L Anion Gap mmol/L BUN (9-20) mg/dL Creatinine (0.66-1.25) mg/dL Est GFR (CKD-EPI)AfAm (>60 ml/min/1.73 sqM) Est GFR (CKD-EPI)NonAf (>60 ml/min/1.73 sqM) Glucose (74-99) mg/dL Plasma Lactic Acid Ryan 2.4 H* (0.7-2.0) mmol/L Calcium (8.4-10.2) mg/dL Total Bilirubin (0.2-1.3) mg/dL AST (17-59) U/L ALT (21-72) U/L Alkaline Phosphatase (38-126) U/L Total Creatine Kinase (55-170) U/L CK-MB (CK-2) (0.0-2.4) ng/mL CK-MB (CK-2) Rel Index Troponin I (0.000-0.034) ng/mL Total Protein (6.3-8.2) g/dL Albumin (3.5-5.0) g/dL Urine Color [place] Urine Appearance Clear (Clear) Urine pH 5.5 (5.0-8.0) Ur Specific [place] 1.024 (1.001-1.035) Urine Protein Trace H (Negative) Urine Glucose (UA) Negative (Negative) Urine Blood Negative (Negative) Urine Nitrite Negative (Negative) Urine Bilirubin 1+ H (Negative) Urine Urobilinogen 4.0 (<2.0) mg/dL Ur Leukocyte Esterase Negative (Negative) Salicylates mg/dL Acetaminophen ug/mL Serum Alcohol mg/dL Disposition Clinical Impression: Overdose, Right lower lobe pneumonia, Elevated liver enzymes, Hyperkalemia, Dehydration, Sepsis Disposition: ADMITTED IP TO THIS HOSP Condition: Stable Referrals: None,Stated [Primary Care Provider] - 1-2 days Decision Date: 01/06/18 Decision Time: 18:17
[2018-01-06 15:41] LABS: Basophils % (A) 0 %; Eosinophils # (A) 0.1 k/uL (0-0.7); Eosinophils % (A) 1 %; HCT 47.4 % (39.0-53.0); HGB 15.2 gm/dL (13.0-17.5); Lymphocytes # (A) 0.4 k/uL (1.0-4.8); Lymphocytes % (A) 3 %; MCH 34.9 pg (25.0-35.0); MCHC 32.1 g/dL (31.0-37.0); MCV 108.6 fL (80.0-100.0); Macrocytosis Marked; Mean Platelet Volume 7.9; Monocytes # (A) 0.3 k/uL (0-1.0); Monocytes % (A) 2 %; Neutrophils # (A) 12.9 k/uL (1.3-7.7); Neutrophils % (A) 93 %; Platelet Count 172 k/uL (150-450); RBC 4.36 m/uL (4.30-5.90); RDW 14.5 % (11.5-15.5); WBC 13.9 k/uL (3.8-10.6)
--- NOTE | 2018-01-06 15:47 | XR ---
EXAMINATION TYPE: XR chest 2V DATE OF EXAM: 01/06/2018 COMPARISON: December 17, 2017 HISTORY: Shortness of breath TECHNIQUE: Frontal and lateral views of the chest are obtained. FINDINGS: Scattered senescent parenchymal changes noted. Increased density left infrahilar region may reflect infiltrate. Correlate clinically and consider pr ogress studies. Heart size is stable. Mediastinal structures are stable and grossly unremarkable. No evidence for hilar prominence. Degenerative changes dorsal spine. IMPRESSION: 1. Increased density left infrahilar region may reflect infiltrate. Correlate clinically and consider progress studies.
[2018-01-06 16:06] LABS: Acetaminophen <10.0 ug/mL; Alcohol <10 mg/dL; Alkaline Phosphatase 75 U/L (38-126); Anion Gap 18 mmol/L; Blood Urea Nitrogen 25 mg/dL (9-20); Calcium 9.8 mg/dL (8.4-10.2); Carbon Dioxide 25 mmol/L (22-30); Chloride 97 mmol/L (98-107); Creatine Kinase 485 U/L (55-170); Glucose 105 mg/dL (74-99); Salicylate <1.0 mg/dL; Sodium 140 mmol/L (137-145); Total Bilirubin 2.3 mg/dL (0.2-1.3); Total Protein 7.5 g/dL (6.3-8.2)
[2018-01-06 16:07] LABS: ALT 832 U/L (21-72); AST 641 U/L (17-59); Potassium 5.7 mmol/L (3.5-5.1)
[2018-01-06 16:15] LABS: Troponin I <0.012 ng/mL (0.000-0.034)
[2018-01-06 16:19] LABS: Creatine Kinase MB 21.5 ng/mL (0.0-2.4)
[2018-01-06] MEDS ORDERED: SODIUM CHLORIDE 0.9% 500 ML IV STA (16:23)
[2018-01-06] MEDS ORDERED: PIPERACILLIN-TAZOBACTAM 3.375 GM in DEXTROSE/WATER 1 50ML.BAG IVPB STA (17:13)
--- NOTE | 2018-01-06 17:30 | US ---
EXAMINATION TYPE: US gallbladder DATE OF EXAM: 01/06/2018 COMPARISON: US 12/20/2017 CLINICAL HISTORY: Pain. Patient overdosed today, given Narcan. Patient is a poor historian. Difficult and limited exam as patient will not turn, take a deep breath in and hold. Elevated WBC, Elevated li artur enzymes EXAM MEASUREMENTS: Liver Length: 12.7 cm Gallbladder Wall: 0.2 cm CBD: 0.6 cm Right Kidney: 10.8 x 5.2 x 4.9 cm Pancreas: Obscured by bowel gas Liver: Limited visualization. Visualized portions are heterogeneous. Gallbladder: No stones or sludge visualized Evidence for sonographic Blanton's sign: No CBD: wnl as visualized, distal portion obscured by bowel gas Right Kidney: No hydronephrosis or masses seen Superior to the right kidney and medial to the liver there is a cystic area with debris visualized, p ossible fluid filled stomach vs other IMPRESSION: No gallstones or dilated ducts. Fluid above the right kidney could be the stomach. No kenrick e fluid. No evidence of renal obstruction.
[2018-01-06 18:02] LABS: Appearance,Urine Clear (Clear); Bilirubin,Urine 1+ (Negative); Blood,Urine Negative (Negative); Color,Urine Orange; Glucose,Urine (UA) Negative (Negative); Ketones,Urine 2+ (Negative); Leukocyte Esterase,Urine Negative (Negative); Nitrite,Urine Negative (Negative); PH, Urine 5.5 (5.0-8.0); Protein,Urine Trace (Negative); Specific Gravity,Urine 1.024 (1.001-1.035)
[2018-01-06 18:16] LABS: Amphetamine Screen,Urine Not Detected (NotDetected); Barbiturate Screen,Urine Not Detected (NotDetected); Benzodiazepines Screen,Urine Detected (NotDetected); Cocaine Screen,Urine Not Detected (NotDetected); Methadone Screen, Urine Detected (NotDetected); Opiate Screen,Urine Not Detected (NotDetected); Oxycodone Screen, Urine Not Detected (NotDetected); Phencyclidine Screen,Urine Not Detected (NotDetected); Tricyclic Antidepressant,Urine Not Detected (NotDetected); Urn Cannabinoid Scrn Not Detected (NotDetected)
--- NOTE | 2018-01-06 19:01 | CT ---
EXAMINATION TYPE: CT brain wo con DATE OF EXAM: 01/06/2018 COMPARISON: 12/20/2017 HISTORY: Altered mental status CT DLP: 1109 mGycm Automated exposure control for dose reduction was used. FINDINGS: There is mild cerebral cortical atrophy. There is no mass effect nor midline shift. There is no sign of intracranial hemorrhage. There is mucosal thickening and fluid level in the left maxillary sinus. Calvarium is intact. IMPRESSION: LEFT MAXILLARY SINUSITIS. CEREBRAL ATROPHY. NO ACUTE INTRACRANIAL ABNORMALITY. NO CHANGE.
[2018-01-06] MEDS ORDERED: NALOXONE 0.4 MG/ML 1 ML VIAL IV PRN (19:08)
[2018-01-06] MEDS ORDERED: IPRATROPIUM-ALBUTEROL 3 ML NEB INHALATION PRN (19:09)
[2018-01-06] MEDS ORDERED: methylPREDNISolone SOD SUCCI 125 MG/2 ML VIAL IV STA (19:09)
[2018-01-06] MEDS: SODIUM CHLORIDE 0.9% 1,000 ML IV SCH (22:15)
--- NOTE | 2018-01-06 23:02 | P.HPIM ---
History of Present Illness H&P Date: 01/07/18 Chief Complaint: overdose 62-year-old male with past history of pulmonary sarcoidosis, COPD and hypertension. Patient is currently providing limited history due to confusion and some degree of altered mental status. Patient was found initially unresponsive at home by his neighbor. The patient was here in the hospital up until December 27 where he was discharged to [facility], he spent a week or so there and then just got discharged home spent 2 days home and no back to the hospital. He reports that his house had no heat. He admits to drinking a pint of liquor, but denies overdosing on methadone however he admits to taking the prescribed dose of 20 mg in the morning and 20 mg at night. He does not remember any details of foot happened but he reported that he lost his dog while he was at [facility] that made him very sad however he denied any suicidal ideation at this time. Patient currently has a bedside sitter for suicidal precautions. He denies any fevers or chills he reports chronic coughing at times with pleuritic chest pain otherwise denies any nausea or vomiting, shortness of breath, abdominal pain, changes in his urination or bowel movement. He is very sleepy but easily arousable however will drift back to sleep if not in the emergency department patient was found to have mild elevation of lactic acid is suspected to have aspiration pneumonia he responded to couple doses of naloxone and started regaining consciousness Review of Systems Patient is only able to provide very limited information due to confusion Past Medical History Past Medical History: Asthma, Chest Pain / Angina, Heart Failure, COPD, Hypertension, Liver Disease, Pneumonia Additional Past Medical History / Comment(s): COPD, recent hospitalization with fall and a small right-sided pneumothorax, traumatic seventh through ninth nondisplaced rib fractures, alcoholism, previous history of delirium tremens, liver 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 states his lung Past Surgical History: Orthopedic Surgery Additional Past Surgical History / Comment(s): neck fracture, Past Anesthesia/Blood Transfusion Reactions: No Reported Reaction Past Psychological History: Anxiety Smoking Status: Former smoker - Past Family History Father Family Medical History: Congestive Heart Failure (CHF), Coronary Artery Disease (CAD), Hypertension Mother Family Medical History: Cancer, Hypertension Additional Family Medical History / Comment(s): Melanoma on nose. Medications and Allergies Home Medications Medication Instructions Recorded Confirmed Type Budesonide-Formot 160-4.5 Mcg 2 puff INHALATION RT-BID #1 inhaler 08/08/1701/06 Rx [Symbicort 160-4.5 Mcg Inhaler] Ipratropium-Albuterol Nebulize 3 ml INHALATION RT-QID #300 12/14/17 01/06/18 Rx [Duoneb 0.5 mg-3 mg/3 ml Soln] ampul.neb Pantoprazole [Protonix] 40 mg PO AC-BRKFST tablet. 12/14/17 01/06/18 Rx Aspirin 325 mg PO DAILY tab 12/19/17 01/06/18 Rx Thiamine [Vitamin B-1] 100 mg PO BID@1200,1700 tab 12/19/17 01/06/18 Rx LORazepam [Ativan] 1 mg PO TID PRN #20 tab 12/23/17 01/06/18 Rx Isosorbide Mononitrate ER [Imdur] 30 mg PO DAILY #1 tab 12/25/17 01/06/18 Rx Folic Acid 1 mg PO DAILY@1200 01/06/18 01/06/18 History Methadone [Dolophine] 20 mg PO Q12H 01/06/18 01/06/18 History Multivitamins, Thera [Multivitamin 1 tab PO DAILY@1200 01/06/18 01/06/18 History (formulary)] Allergies Allergy/AdvReac Type Severity Reaction Status Date / Time [place] Feces Allergy Dyspnea Uncoded 01/06/18 15:35 Physical Exam Vitals: Vital Signs Temp Pulse Resp BP Pulse Ox 01/06/18 21:16 98.4 F 101 H 18 109/60 93 L 01/06/18 20:18 102 H 01/06/18 20:10 96 01/06/18 20:06 99.1 F 96 18 120/58 01/06/18 19:38 104 H 18 110/71 95 01/06/18 19:10 105 H 16 128/59 94 L 01/06/18 17:19 98.5 F 112 H 20 128/69 93 L 01/06/18 14:43 97 F L 100 32 H 146/85 95 Intake and Output 01/06/18 01/06/18 01/07/18 14:59 22:59 06:59 Other: Weight 90.718 kg Constitutional: No acute distress, patient seems to be lethargic however he is easily arousable but with drifts into sleep but if not stimulated Eyes: Anicteric sclerae, moist conjunctiva, no lid-lag Pupils equal round 2 mm each reactive to light ENMT: NC/AT Oropharynx clear, no erythema, exudates Neck: Supple, FROM, no masses, or JVD No carotid bruits No thyromegaly Lungs: Good breath sounds bilaterally except for right lung base with decreased breath sounds Clear to percussion Normal respiratory effort, no accessory muscle use Cardiovascular: Heart regular in rate and rhythm, No murmurs, gallops, or rubs No peripheral edema Abdominal: Soft Nontender, no guarding, rebound or rigidity Abdomen moving with respiration Normoactive bowel sounds No hepatomegaly, No splenomegaly No palpable mass No abdominal wall hernia noted Skin: Normal temperature, tone, texture, turgor No induration No subcutaneous nodules No rash, lesions No ulcers Extremities: No digital cyanosis No clubbing Pedal pulses intact and symmetrical Radial pulses intact and symmetrical No calf tenderness Psychiatric: Lethargic easily arousable but would drifts back to sleep and not stimulated, oriented to person and place Flat affect Poor judgment Neuro Muscles Strength 4/5 in all 4 extremities Sensation to light touch grossly present throughout Cranial nerves II-XII grossly intact No focal sensory deficits Lymphatics: no palpable cervical or supraclavicular , or inguinal lymph nodes Results CBC & Chem 7: 01/06/18 15:15 01/06/18 15:15 Labs: Abnormal Lab Results - Last 24 Hours (Table) 01/06/18 01/06/18 01/06/18 Range/Units 15:15 15:15 15:15 WBC 13.9 H (3.8-10.6) k/uL MCV 108.6 H (80.0-100.0) fL Neutrophils # 12.9 H (1.3-7.7) k/uL Lymphocytes # 0.4 L (1.0-4.8) k/uL Potassium 5.7 H (3.5-5.1) mmol/L Chloride 97 L (98-107) mmol/L BUN 25 H (9-20) mg/dL Glucose 105 H (74-99) mg/dL Plasma Lactic Acid Ryan (0.7-2.0) mmol/L Total Bilirubin 2.3 H (0.2-1.3) mg/dL AST 641 H (17-59) U/L ALT 832 H (21-72) U/L Total Creatine Kinase 485 H (55-170) U/L CK-MB (CK-2) 21.5 H* (0.0-2.4) ng/mL Urine Protein (Negative) Urine Ketones (Negative) Urine Bilirubin (Negative) Urine Methadone Screen (NotDetected) U Benzodiazepines Scrn (NotDetected) 01/06/18 01/06/18 01/06/18 Range/Units 15:42 17:10 17:10 WBC (3.8-10.6) k/uL MCV (80.0-100.0) fL Neutrophils # (1.3-7.7) k/uL Lymphocytes # (1.0-4.8) k/uL Potassium (3.5-5.1) mmol/L Chloride (98-107) mmol/L BUN (9-20) mg/dL Glucose (74-99) mg/dL Plasma Lactic Acid Ryan 2.4 H* (0.7-2.0) mmol/L Total Bilirubin (0.2-1.3) mg/dL AST (17-59) U/L ALT (21-72) U/L Total Creatine Kinase (55-170) U/L CK-MB (CK-2) (0.0-2.4) ng/mL Urine Protein Trace H (Negative) Urine Ketones 2+ H (Negative) Urine Bilirubin 1+ H (Negative) Urine Methadone Screen Detected H (NotDetected) U Benzodiazepines Scrn Detected H (NotDetected) Assessment and Plan Assessment: 62-year-old male with history of pulmonary sarcoidosis, COPD, hypertension, diastolic CHF. Patient was brought from home due to being found by his neighbor unresponsive. There were suspicion for methadone overdose and alcohol abuse. Patient was recently here in the hospital where he was treated for pneumonia and altered mental status secondary to overdose he was discharged to [facility] spent a week or so and then got really spent 2 days at home and straight back to the hospital. Patient is not able to provide good quality history due to being lethargic and altered mental status at this time. However he does admit to alcohol abuse and ongoing use of methadone. He has recently lost his dog while he was at the [facility] but denies any suicidal ideation, patient has a bedside sitter at this time for suicidal precautions Plan: #Acute metabolic encephalopathy, most likely secondary to alcohol abuse and possible methadone overdose Hold methadone Alcohol withdrawal precautions When necessary benzos for signs of alcohol withdrawal IV fluid hydration Multivitamin and thiamine Patient counseled regarding alcohol abuse addicition medicine consult #Sepsis secondary to healthcare associated pneumonia Check cultures Zosyn Vanco IV fluid hydration as above #Lactic acidosis secondary to sepsis Patient received IV fluid hydration Close monitoring of lactic acid of vital signs, lactic acidosis resolved #Mild hyperkalemia Monitor potassium level Given insulin and d50 #Elevated liver enzymes with history of chronic hepatitis C Check AFP #Diastolic CHF currently compensated #DVT prophylaxis continue heparin subcu 3 times a day Slightly elevated troponins, cardiology input requested Patient complains of chronic chest pain, had stress test done July last year and was negative for ischemic changes social insurance specialist consult #Preformed a thorough record review from recent hospitalization December 2017 as summarized in HPI and above in the summary Surrogate decision-maker: Patient could not name surrogate decision-maker CODE STATUS: Full code DVT prophylaxis: Heparin subcu Discussed with: Patient, ER, RN Anticipated discharge: 48-[address]: [facility] A total of 55 minutes were spent on the care of this complex patient more than 50% of the time was spent in counseling and care coordination. Sepsis - Sepsis Sepsis Focused Exam #1 Sepsis Focused Exam Complete: Yes Vital Signs & RN Notes Reviewed: Yes Capillary Refill: < 2 Seconds: Fingers, Toes Peripheral Pulses: Normal: Radial (R), Radial (L), Posterior Tibialis (R), Posterior Tibialis (L), Dorsalis Pedis (R), Dorsalis Pedis (L) Skin Color: Normal for Patient Respiratory Exam: normal lung sounds Cardiovascular Exam: regular rate, normal rhythm, normal heart sounds
[2018-01-06 23:42] LABS: Creatine Kinase MB 11.9 ng/mL (0.0-2.4); Troponin I 0.048 ng/mL (0.000-0.034)
[2018-01-07] MEDS: SODIUM CHLORIDE 0.9% 1,000 ML IV SCH ×2 (00:03→09:01)
[2018-01-07] MEDS ORDERED: VANCOMYCIN IV PER PHARMACY 1 EACH MISC MISCELLANE PRN (00:23)
[2018-01-07] MEDS ORDERED: LORazepam 2 MG/ML INJ IV PRN ×3 (00:25)
[2018-01-07] MEDS: PIPERACILLIN-TAZOBACTAM 3.375 GM in DEXTROSE/WATER 1 50ML.BAG IVPB SCH ×3 (00:30→17:01)
[2018-01-07] MEDS ORDERED: DEXTROSE 50%-WATER 50 ML SYRINGE IVP STA (00:36)
[2018-01-07] MEDS ORDERED: INSULIN REGULAR 100 UNIT/ML VIAL IV ONE (00:36)
[2018-01-07] MEDS ORDERED: VANCOMYCIN 1,500 MG in SODIUM CHLORIDE 0.9% 250 ML IVPB ONE (01:15)
[2018-01-07 03:05] VITALS: BMI 28.7
[2018-01-07 04:36] LABS: Creatine Kinase MB 8.2 ng/mL (0.0-2.4); Troponin I 0.05 ng/mL (0.000-0.034)
[2018-01-07] MEDS: VANCOMYCIN 1,500 MG in SODIUM CHLORIDE 0.9% 250 ML IVPB SCH ×2 (06:09→17:01)
[2018-01-07] MEDS: IPRATROPIUM-ALBUTEROL 3 ML NEB INHALATION SCH ×4 (08:02→20:18)
[2018-01-07] MEDS: SYMBICORT 160-4.5 MCG INHALER INHALATION SCH ×2 (08:02→20:18)
[2018-01-07] MEDS: HEPARIN SODIUM,PORCINE 5,000 UNIT/ML 1 ML VIAL SQ SCH ×2 (08:55→17:01)
[2018-01-07] MEDS: ISOSORBIDE MONONITRATE ER 30 MG TAB.ER.24H PO SCH (08:56)
[2018-01-07] MEDS: ASPIRIN 325 MG TAB PO SCH (08:56)
[2018-01-07] MEDS ORDERED: PANTOPRAZOLE 40 MG/10 ML VIAL IV SCH (09:00)
[2018-01-07 10:54] LABS: ALT 564 U/L (21-72); AST 345 U/L (17-59); Albumin 2.6 g/dL (3.5-5.0); Alkaline Phosphatase 47 U/L (38-126); Anion Gap 9 mmol/L; Blood Urea Nitrogen 21 mg/dL (9-20); Calcium 8.6 mg/dL (8.4-10.2); Carbon Dioxide 30 mmol/L (22-30); Chloride 101 mmol/L (98-107); Glucose 158 mg/dL (74-99); Potassium 5.3 mmol/L (3.5-5.1); Sodium 140 mmol/L (137-145); Total Bilirubin 0.9 mg/dL (0.2-1.3); Total Protein 4.9 g/dL (6.3-8.2)
[2018-01-07 11:04] LABS: Basophils % (A) 0 %; Eosinophils # (A) 0.1 k/uL (0-0.7); Eosinophils % (A) 1 %; HCT 35.8 % (39.0-53.0); Lymphocytes # (A) 0.4 k/uL (1.0-4.8); Lymphocytes % (A) 4 %; MCH 36.1 pg (25.0-35.0); MCHC 34.2 g/dL (31.0-37.0); MCV 105.6 fL (80.0-100.0); Macrocytosis Moderate; Mean Platelet Volume 7.4; Monocytes # (A) 0.2 k/uL (0-1.0); Monocytes % (A) 2 %; Neutrophils # (A) 9.7 k/uL (1.3-7.7); Neutrophils % (A) 93 %; Platelet Count 132 k/uL (150-450); RBC 3.39 m/uL (4.30-5.90); RDW 14.7 % (11.5-15.5); WBC 10.4 k/uL (3.8-10.6)
[2018-01-07 11:06] LABS: HGB 12.2 gm/dL (13.0-17.5)
--- NOTE | 2018-01-07 11:27 | CONS ---
CONSULTATION All Craig is a 62-year-old gentleman with history of pulmonary sarcoidosis, COPD, hypertension, who was brought into hospital having been found unresponsive by a neighbor. Patient was in the hospital until December 27, was discharged to extended care facility from there just got home about 2 days ago. He admits to drinking a pint of liquor. He also was taken methadone and subsequently does not remember what exactly happened. He apparently was feeling sad, but there is no suicidal ideation. At the time of my evaluation, patient was less confused, but he is still not particularly communicative. He has had 3 sets of troponins that are all mildly elevated at 0.01, 0.04 and 0.05. His urine drug screen is positive. Liver enzymes are elevated. PAST MEDICAL HISTORY: Past medical history is significant for hypertension, COPD, heart failure, asthma. MEDICATIONS: Medications at home included Symbicort, DuoNeb, Protonix, aspirin, thiamine, Ativan, Imdur, folic acid. ALLERGIES: No known drug allergies. FAMILY HISTORY: Family history is negative for premature coronary artery disease. SOCIAL HISTORY AND REVIEW OF SYSTEMS: I am unable to obtain from the patient who is still somewhat confused, but I reviewed the chart at length. PHYSICAL EXAM: On exam, heart rate is 90 beats per minute, blood pressure is 128/69, respiratory rate is 18. Chest exam reveals diminished air entry at the bases. Heart exam reveals first and second heart sounds. No gallop. No murmur. Abdomen is soft, nontender. Examination of extremities did not reveal any edema. Peripheral pulses are felt. LABS: Labs show that the troponin is 0.04, 0.05. EKG shows sinus tachycardia without acute ST-T wave changes. Chest x-ray shows left hilar infiltrate. ASSESSMENT: Mild troponin elevation probably related to the excess drinking, drug use and the unresponsiveness and supply demand mismatch. I am going to obtain a 2D echo on him to evaluate his LV function. If the LV function and wall motion looks normal, I do not think we need to do any other testing at this time. The patient had a stress test in July of 2017 that did not reveal any ischemia. MMODL / IJN: [id number] /
[2018-01-07] MEDS: THIAMINE 100 MG TAB PO SCH ×2 (12:16→17:01)
[2018-01-07] MEDS: MULTIVITAMINS, THERA 1 EACH TAB PO SCH (12:16)
[2018-01-07] MEDS: FOLIC ACID 1 MG TAB PO SCH (12:16)
--- NOTE | 2018-01-07 13:50 | XR ---
EXAMINATION TYPE: XR chest 1V portable DATE OF EXAM: 01/07/2018 Comparison: 01/06/2018 Clinical History: 62 year-old male history of sepsis Findings: Low lung volumes with crowded vascular markings. Heart upper limits of normal in size. Diffuse inters titial prominence. Some patchy bibasilar densities are noted especially in the retrocardiac region. N o significant pleural effusion on the frontal view. Impression: Hypoventilatory changes. Diffuse interstitial densities are similar. Bibasilar densities also similar to slightly increased. Correlate for possible etiologies including pulmonary vascular congestion, pn eumonia including atypical pneumonias, and interstitial pneumonitis.
--- NOTE | 2018-01-07 13:55 | P.CN ---
Psychiatric Consult - . Consult date: 01/07/18 Consult:: 01/07/18 13:37 Identification: Patient is a 62-year-old male who was admitted after a neighbor found him unresponsive at home and called EMS. Reason for Consult: Possible overdose History of Present Illness: Patient's chart was reviewed and the patient was seen in his room no family members were present. Patient reports that he had recently been here in the hospital in December and had been transferred to an extended care facility after discharge and only recently, 2 days ago return to his home. Patient states that he's been trying to find his dog, contacting people on Facebook. He states when he got home he did not remember that he had pain medication and then the next morning recall that he did have methadone and took it as directed. Patient states that he also used Ativan that he was given as well as was drinking alcohol. Patient states he doesn't know how much alcohol he drank and really doesn't recall what happened. Patient reported that his throat was sore and he did not want to talk much. Patient also stated that he did not like to answer my questions regarding his alcohol use stating that "I'm not an alcoholic" or my questions regarding his drug use. Patient states that he was confused yesterday but states his thinking is much clearer and again became angry when I was asking him questions about where he was the date and other questions regarding his cognition. Patient stated "I've already been asked those questions". Patient states that he lives alone and is able to take care of his activities of daily living without assistance. Patient states that he was not attempting suicide, did not take an overdose of methadone was not feeling suicidal and was not feeling depressed. Patient states that he took the medications as prescribed. Patient does not endorse any symptoms of depression, he denies that he is ever been treated for depression in the past and does not endorse any symptoms of lizette, psychosis. Past Psychiatric History: patient denies any prior psychiatric admissions or prior psychiatric treatment. Patient reports no prior suicide attempts. Past Medical/Surgical History: patient has a history of pulmonary sarcoidosis, COPD, hypertension, asthma, heart failure, hepatitis C. history of orthopedic surgery Social History: Patient states he was born and raised in [place] and both of his parents are as well as his 4 siblings. 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 He was living in [place] and states that he had a common-law marriage and had 6 children none of whom live in the state and none of whom he has contact with. Patient states he lives on his own in a house. Substance Use History: patient refused to discuss his alcohol use stating that he is not an alcoholic, could drink 2-3 beers or no beers and stated he doesn't know how much liquor he drank prior to his admission. He refused to answer any further questions regarding his prior alcohol use or any drug use history. Legal History: he denied any legal problems Mental status: Appearance/Attitude: Patient was sitting in a hospital bed, in no acute distress, he complained that his throat was sore and did not want to talk much and was superficially cooperative Behavior: Patient did not display any psychomotor agitation or retardation, he was not tremulous Speech/Language: Patient's speech was spontaneous, speech is of normal volume and rhythm and he was coherent Thought Process: Patient responded to most questions yes or no due to complaints of his throat hurting, is not circumstantial or tangential Thought Content: Patient denied any auditory or visual hallucinations no delusions or paranoid ideation were elicited. Patient states that he ate well this morning and had no difficulty and stated that he thinks he slept well last night. He stated that he was feeling shaky in the morning but now is feeling well. Suicidal/Homicidal Ideation: Patient denies that he took any medications in an overdose and denies that he was feeling suicidal and denies that he is currently suicidal and no current homicidal ideation Sensorium/Cognition: Patient is alert and oriented to person, place and situation, he refused to answer further cognitive testing questions stating that he already done so. Patient's recent and remote memory are grossly intact but were not formally tested Mood/Affect: Patient's mood was irritable and his affect was appropriate to his mood Insight/Judgment: Patient's insight and judgment are fair, patient denies that he has any difficulties with alcohol Assessment: patient recently been admitted to the hospital and discharged to an extended care facility where he was for several weeks until he returned to his own home 2 days ago. Patient at home states that he was able to care for his ADLs, was taking his methadone as prescribed and was also using Ativan which also been prescribed and was drinking and unknown quantity of liquor. Patient refused to discuss his alcohol use with me or any drug use history stating that he did not want to answer those questions. Patient also was not cooperative with responding to questions regarding his cognitive status. Patient does not have any evidence of visual or tactile hallucinations, he is not tremulous and stated that he was eating well and not feeling nauseated. Patient denies that this was an overdose attempt and states that he was not attempting to commit suicide as he was not feeling suicidal. Patient states that he is upset that his dog was not at his home and he has no idea where his dog is. Patient states that he is capable of caring for himself at home. Patient denied that he had any difficulties with alcohol stating on several occasions to me "I am not an alcoholic" and declined any referrals for treatment. Diagnosis: delirium, multifactorial; history of alcohol use disorder Plan: there is no evidence of a psychotic disorder, major depressive disorder or manic symptoms at this time, patient states that he was more confused yesterday and his mentation appears to be clearing today. Patient was not fully cooperative during the interview refusing to discuss his alcohol and/or drug use stating that he does not want to answer those questions. He on several occasions told me that he was not an alcoholic and refused and declined any referrals for rehab treatment. Patient has no prior psychiatric treatment history and states that he has never attempted suicide. I will discontinue suicide precautions. I would recommend that when the patient is discharged he not be given any benzodiazepines as the patient is currently on methadone and will probably return to using alcohol. I am unable to determine how well the patient is able to care for his ADLs at home and referral for a visiting nurse to assess his situation at home and his ability to care for himself may be beneficial. There is no need to begin any psychotropic medication at this time. I will sign off the case if there are any questions or concerns please don't hesitate to contact me. 01/07/18 13:37 01/07/18 13:39
--- NOTE | 2018-01-07 18:59 | P.PN ---
Subjective Progress Note Date: 01/07/18 Patient feeling much better today, is much more arousable and communicative which is a drastic improvement per review of EMR records. Patient is awake alert and oriented Answering questions appropriately. Denies any previous chest pain leading up to this hospitalization, no acute events overnight Objective - Vital Signs Vital signs: Vital Signs Temp 98.4 F 01/07/18 11:35 Pulse 98 01/07/18 11:45 Resp 20 01/07/18 11:35 BP 132/69 01/07/18 11:35 Pulse Ox 95 01/07/18 11:35 Intake & Output 01/06/18 01/07/18 01/07/18 18:59 06:59 18:59 Intake Total 500 Output Total 350 Balance -350 500 Weight 90.718 kg 86.8 kg Intake: Intake, IV Titration 100 Amount Piperacillin-Tazobactam 3 100 .375 gm In Dextrose/Water 1 50ml.bag @ 12.5 mls/hr IVPB Q8HR [facility] Rx#: [id number] Oral 400 Output: Urine 350 - Exam Constitutional: No acute distress, conversant, pleasant Eyes: Anicteric sclerae, moist conjunctiva, no lid-lag, PERRLA ENMT: NC/AT,Oropharynx clear, no erythema, exudates Neck:Supple, FROM, no masses, or JVD, No carotid bruits; No thyromegaly Lungs: Clear to auscultation, Clear to percussion, Normal respiratory effort, no accessory muscle use Cardiovascular: Heart regular in rate and rhythm, No murmurs, gallops, or rubs no peripheral edema Abdominal: Soft Nontender, nom distended, no guarding, no rebound or rigidity, Normoactive bowel sounds No hepatomegaly, No splenomegaly, No palpable mass No abdominal wall hernia noted Skin: Normal temperature, tone, texture, turgor, No induration No subcutaneous nodules, No rash, lesions, No ulcers Extremities:No digital cyanosis No clubbing, Pedal pulses intact and symmetrical Radial pulses intact and symmetrical Normal gait and station, No calf tenderness Psychiatric: Alert and oriented to person, place and time, Appropriate affect Intact judgement Neuro: Muscles Strength 5/5 in all 4 extremities, Sensation to light touch grossly present throughout, Cranial nerves II-XII grossly intact. No focal sensory deficits - Labs CBC & Chem 7: 01/07/18 10:15 03/29/18 10:15 Labs: Abnormal Lab Results - Last 24 Hours (Table) 01/06/18 01/06/18 01/06/18 Range/Units 15:15 15:15 15:15 WBC 13.9 H (3.8-10.6) k/uL RBC (4.30-5.90) m/uL Hgb (13.0-17.5) gm/dL Hct (39.0-53.0) % MCV 108.6 H (80.0-100.0) fL MCH (25.0-35.0) pg Plt Count (150-450) k/uL Neutrophils # 12.9 H (1.3-7.7) k/uL Lymphocytes # 0.4 L (1.0-4.8) k/uL Potassium 5.7 H (3.5-5.1) mmol/L Chloride 97 L (98-107) mmol/L BUN 25 H (9-20) mg/dL Glucose 105 H (74-99) mg/dL Plasma Lactic Acid Ryan (0.7-2.0) mmol/L Total Bilirubin 2.3 H (0.2-1.3) mg/dL AST 641 H (17-59) U/L ALT 832 H (21-72) U/L Total Creatine Kinase 485 H (55-170) U/L CK-MB (CK-2) 21.5 H* (0.0-2.4) ng/mL Troponin I (0.000-0.034) ng/mL Total Protein (6.3-8.2) g/dL Albumin (3.5-5.0) g/dL Urine Protein (Negative) Urine Ketones (Negative) Urine Bilirubin (Negative) Urine Methadone Screen (NotDetected) U Benzodiazepines Scrn (NotDetected) 01/06/18 01/06/18 01/06/18 Range/Units 15:42 17:10 17:10 WBC (3.8-10.6) k/uL RBC (4.30-5.90) m/uL Hgb (13.0-17.5) gm/dL Hct (39.0-53.0) % MCV (80.0-100.0) fL MCH (25.0-35.0) pg Plt Count (150-450) k/uL Neutrophils # (1.3-7.7) k/uL Lymphocytes # (1.0-4.8) k/uL Potassium (3.5-5.1) mmol/L Chloride (98-107) mmol/L BUN (9-20) mg/dL Glucose (74-99) mg/dL Plasma Lactic Acid Ryan 2.4 H* (0.7-2.0) mmol/L Total Bilirubin (0.2-1.3) mg/dL AST (17-59) U/L ALT (21-72) U/L Total Creatine Kinase (55-170) U/L CK-MB (CK-2) (0.0-2.4) ng/mL Troponin I (0.000-0.034) ng/mL Total Protein (6.3-8.2) g/dL Albumin (3.5-5.0) g/dL Urine Protein Trace H (Negative) Urine Ketones 2+ H (Negative) Urine Bilirubin 1+ H (Negative) Urine Methadone Screen Detected H (NotDetected) U Benzodiazepines Scrn Detected H (NotDetected) 01/06/18 01/07/18 01/07/18 Range/Units 22:26 03:32 10:15 WBC (3.8-10.6) k/uL RBC 3.39 L (4.30-5.90) m/uL Hgb 12.2 L D (13.0-17.5) gm/dL Hct 35.8 L (39.0-53.0) % MCV 105.6 H (80.0-100.0) fL MCH 36.1 H (25.0-35.0) pg Plt Count 132 L (150-450) k/uL Neutrophils # 9.7 H (1.3-7.7) k/uL Lymphocytes # 0.4 L (1.0-4.8) k/uL Potassium (3.5-5.1) mmol/L Chloride (98-107) mmol/L BUN (9-20) mg/dL Glucose (74-99) mg/dL Plasma Lactic Acid Ryan (0.7-2.0) mmol/L Total Bilirubin (0.2-1.3) mg/dL AST (17-59) U/L ALT (21-72) U/L Total Creatine Kinase 271 H 188 H (55-170) U/L CK-MB (CK-2) 11.9 H* 8.2 H* (0.0-2.4) ng/mL Troponin I 0.048 H* 0.050 H* (0.000-0.034) ng/mL Total Protein (6.3-8.2) g/dL Albumin (3.5-5.0) g/dL Urine Protein (Negative) Urine Ketones (Negative) Urine Bilirubin (Negative) Urine Methadone Screen (NotDetected) U Benzodiazepines Scrn (NotDetected) 01/07/18 Range/Units 10:15 WBC (3.8-10.6) k/uL RBC (4.30-5.90) m/uL Hgb (13.0-17.5) gm/dL Hct (39.0-53.0) % MCV (80.0-100.0) fL MCH (25.0-35.0) pg Plt Count (150-450) k/uL Neutrophils # (1.3-7.7) k/uL Lymphocytes # (1.0-4.8) k/uL Potassium 5.3 H (3.5-5.1) mmol/L Chloride (98-107) mmol/L BUN 21 H (9-20) mg/dL Glucose 158 H (74-99) mg/dL Plasma Lactic Acid Ryan (0.7-2.0) mmol/L Total Bilirubin (0.2-1.3) mg/dL AST 345 H (17-59) U/L ALT 564 H (21-72) U/L Total Creatine Kinase (55-170) U/L CK-MB (CK-2) (0.0-2.4) ng/mL Troponin I (0.000-0.034) ng/mL Total Protein 4.9 L (6.3-8.2) g/dL Albumin 2.6 L (3.5-5.0) g/dL Urine Protein (Negative) Urine Ketones (Negative) Urine Bilirubin (Negative) Urine Methadone Screen (NotDetected) U Benzodiazepines Scrn (NotDetected) Assessment and Plan Assessment: # (1) Metabolic encephalopathy Narrative/Plan: * Resolved likely secondary to ongoing methadone use superimposed on chronic alcoholism * Patient counseled on on the risks of combining alcohol with opiate use Current Visit: Yes Status: Acute Code(s): G93.41 - METABOLIC ENCEPHALOPATHY SNOMED Code(s): 28228928 (2) Pneumonia Narrative/Plan: * Continue current antibiotic regimen with Zosyn and vancomycin * Awaiting further pulmonary recommendations * Repeat chest x-ray showing hypoventilatory changes diffuse interstitial densities are similar. Basilar densities also slightly increased Current Visit: Yes Status: Acute Code(s): J18.9 - PNEUMONIA, UNSPECIFIED ORGANISM SNOMED Code(s): 414463234 (3) Lactic acidosis Current Visit: Yes Status: Resolved Code(s): E87.2 - ACIDOSIS SNOMED Code( s): 95755035 (4) Non-STEMI (non-ST elevated myocardial infarction) Narrative/Plan: * Likely secondary to demand ischemia secondary to hypotension/dehydration from possible sepsis versus chronic alcoholism Current Visit: Yes Status: Acute Code(s): I21.4 - NON-ST ELEVATION (NSTEMI) MYOCARDIAL INFARCTION SNOMED Code(s): 793771408 (5) Hyperkalemia Narrative/Plan: * Potassium trending down from 5.7-5.3 we'll continue to monitor Current Visit: Yes Status: Acute Code(s): E87.5 - HYPERKALEMIA SNOMED Code (s): 55851185 (6) Alcohol dependence Narrative/Plan: * Continue with alcohol withdrawal protocol * Continue with thiamine and multivitamins Current Visit: Yes Status: Acute Code(s): F10.20 - ALCOHOL DEPENDENCE, UNCOMPLICATED SNOMED Code(s): 79850992
--- NOTE | 2018-01-07 21:47 | ECHOF ---
Referral Reason:abn trop MEASUREMENTS -------- HEIGHT: 152.4 cm WEIGHT: 86.6 kg BP: IVSd: 1.3 cm (0.6 - 1.1) LVIDd: 4.2 cm (3.9 - 5.3) LVPWd: 1.2 cm (0.6 - 1.1) IVSs: 1.7 cm LVIDs: 3.0 cm LVPWs: 1.3 cm LA Diam: 4.1 cm (2.7 - 3.8) LAESV Index (A-L): 42.24 ml/m Ao Diam: 3.9 cm (2.0 - 3.7) AV Cusp: 2.0 cm (1.5 - 2.6) LA Diam: 4.1 cm (2.7 - 3.8) MV EXCURSION: 21.171 mm (> 18.000) MV EF SLOPE: 61 mm/s (70 - 150) EPSS: 0.3 cm MV E Omar: 0.39 m/s MV DecT: 208 ms MV A Omar: 0.78 m/s MV E/A Ratio: 0.50 RAP: 5.00 mmHg RVSP: 20.98 mmHg FINDINGS -------- Sinus rhythm. This was a technically adequate study. The left ventricular size is normal. There is mild concentric left ventricular hypertrophy. Overa ll left ventricular systolic function is normal with, an EF between 55 - 60 %. The right ventricle is normal in size. The left atrial size is normal. The right atrial size is normal. The aortic valve is trileaflet, and appears structurally normal. No aortic stenosis or regurgitation. Mild mitral annular calcification present. Mild mitral regurgitation is present. Mild tricuspid regurgitation present. There is no evidence of pulmonary hypertension. The right v entricular systolic pressure, as measured by Doppler, is 20.98mmHg. There is no pulmonic regurgitation present. The aortic root size is normal. There is no pericardial effusion. CONCLUSIONS -------- 1. The left ventricular size is normal. 2. There is mild concentric left ventricular hypertrophy. 3. Overall left ventricular systolic function is normal with, an EF between 55 - 60 %. 4. The aortic valve is trileaflet, and appears structurally normal. No aortic stenosis or regurgitati on. 5. Mild mitral annular calcification present. 6. Mild mitral regurgitation is present. 7. Mild tricuspid regurgitation present. 8. There is no evidence of pulmonary hypertension. 9. The right ventricular systolic pressure, as measured by Doppler, is 20.98mmHg. 10. There is no pulmonic regurgitation present. 11. The aortic root size is normal. 12. There is no pericardial effusion. PAPER PROCESSING MACHINE HELPER: Delia Leyva RDCS
[2018-01-08] MEDS: HEPARIN SODIUM,PORCINE 5,000 UNIT/ML 1 ML VIAL SQ SCH ×4 (00:22→23:25)
[2018-01-08] MEDS: PIPERACILLIN-TAZOBACTAM 3.375 GM in DEXTROSE/WATER 1 50ML.BAG IVPB SCH ×4 (00:22→23:25)
[2018-01-08] MEDS: VANCOMYCIN 1,500 MG in SODIUM CHLORIDE 0.9% 250 ML IVPB SCH ×2 (04:46→16:32)
[2018-01-08] MEDS: IPRATROPIUM-ALBUTEROL 3 ML NEB INHALATION SCH ×4 (08:29→20:15)
[2018-01-08] MEDS: SYMBICORT 160-4.5 MCG INHALER INHALATION SCH ×2 (08:29→20:15)
[2018-01-08] MEDS: PANTOPRAZOLE 40 MG TABLET PO SCH (09:56)
[2018-01-08] MEDS: ASPIRIN 325 MG TAB PO SCH (09:58)
[2018-01-08] MEDS: ISOSORBIDE MONONITRATE ER 30 MG TAB.ER.24H PO SCH (09:58)
[2018-01-08 10:51] LABS: Basophils % (A) 0 %; Eosinophils # (A) 0.1 k/uL (0-0.7); Eosinophils % (A) 1 %; HGB 11.7 gm/dL (13.0-17.5); Lymphocytes # (A) 1.7 k/uL (1.0-4.8); Lymphocytes % (A) 19 %; MCH 35.5 pg (25.0-35.0); MCHC 32.5 g/dL (31.0-37.0); MCV 109.2 fL (80.0-100.0); Macrocytosis Marked; Mean Platelet Volume 7.7; Monocytes # (A) 0.4 k/uL (0-1.0); Monocytes % (A) 4 %; Neutrophils # (A) 6.8 k/uL (1.3-7.7); Neutrophils % (A) 75 %; Platelet Count 142 k/uL (150-450); RDW 15.3 % (11.5-15.5)
[2018-01-08 11:02] LABS: ALT 450 U/L (21-72); AST 209 U/L (17-59); Albumin 2.6 g/dL (3.5-5.0); Alkaline Phosphatase 50 U/L (38-126); Anion Gap 8 mmol/L; Blood Urea Nitrogen 24 mg/dL (9-20); Calcium 9.2 mg/dL (8.4-10.2); Carbon Dioxide 32 mmol/L (22-30); Chloride 102 mmol/L (98-107); Glucose 128 mg/dL (74-99); Magnesium 1.8 mg/dL (1.6-2.3); Sodium 142 mmol/L (137-145); Total Bilirubin 0.5 mg/dL (0.2-1.3); Total Protein 4.9 g/dL (6.3-8.2)
[2018-01-08] MEDS: THIAMINE 100 MG TAB PO SCH ×2 (11:43→16:36)
[2018-01-08] MEDS: FOLIC ACID 1 MG TAB PO SCH (11:43)
[2018-01-08] MEDS: MULTIVITAMINS, THERA 1 EACH TAB PO SCH (11:43)
[2018-01-08] MEDS ORDERED: predniSONE 20 MG TAB PO STA (12:47)
--- NOTE | 2018-01-08 12:50 | P.PN ---
Subjective Progress Note Date: 01/08/18 Patient feeling much better today, is much more arousable and communicative which is a drastic improvement per review of EMR records. Patient is awake alert and oriented Answering questions appropriately. Denies any previous chest pain leading up to this hospitalization, reports the shortness of breath is improving but still having wheezes, had approximately two thirds of his breakfast today, planning to work with physical therapy has been up and ambulatory to the restroom, no acute events overnight Objective - Vital Signs Vital signs: Vital Signs Temp 97.8 F 01/08/18 11:40 Pulse 92 01/08/18 12:31 Resp 15 01/08/18 11:40 BP 116/89 01/08/18 11:40 Pulse Ox 92 L 01/08/18 11:40 Intake & Output 01/07/18 01/08/18 01/08/18 18:59 06:59 18:59 Intake Total 980 1150 760 Output Total 650 600 Balance 980 500 160 Weight 89.9 kg Intake: IV 1150 Piperacillin-Tazobactam 3 100 .375 gm In Dextrose/Water 1 50ml.bag @ 12.5 mls/hr IVPB Q8HR [facility] Rx#: [id number] Sodium Chloride 0.9% 1, 800 000 ml @ 150 mls/hr IV . Q6H40M [facility] Rx#:[id number] Vancomycin 1,500 mg In 250 Sodium Chloride 0.9% 250 ml @ 125 mls/hr IVPB Q12H [facility] Rx#:[id number] Intake, IV Titration 100 Amount Piperacillin-Tazobactam 3 100 .375 gm In Dextrose/Water 1 50ml.bag @ 12.5 mls/hr IVPB Q8HR [facility] Rx#: [id number] Oral 880 760 Output: Urine 650 600 Other: # Voids 1 - Exam Constitutional: No acute distress, conversant, pleasant Eyes: Anicteric sclerae, moist conjunctiva, no lid-lag, PERRLA ENMT: NC/AT,Oropharynx clear, no erythema, exudates Neck:Supple, FROM, no masses, or JVD, No carotid bruits; No thyromegaly Lungs: Mild expiratory wheezes Clear to percussion, Normal respiratory effort, no accessory muscle use on 2 L is a cannula Cardiovascular: Heart regular in rate and rhythm, No murmurs, gallops, or rubs no peripheral edema Abdominal: Soft Nontender, nom distended, no guarding, no rebound or rigidity, Normoactive bowel sounds No hepatomegaly, No splenomegaly, No palpable mass No abdominal wall hernia noted Skin: Normal temperature, tone, texture, turgor, No induration No subcutaneous nodules, No rash, lesions, No ulcers Extremities:No digital cyanosis No clubbing, Pedal pulses intact and symmetrical Radial pulses intact and symmetrical Normal gait and station, No calf tenderness Psychiatric: Alert and oriented to person, place and time, Appropriate affect Intact judgement Neuro: Muscles Strength 5/5 in all 4 extremities, Sensation to light touch grossly present throughout, Cranial nerves II-XII grossly intact. No focal sensory deficits - Labs CBC & Chem 7: 01/08/18 10:09 01/08/18 10:09 Labs: Abnormal Lab Results - Last 24 Hours (Table) 01/08/18 01/08/18 Range/Units 10:09 10:09 RBC 3.30 L (4.30-5.90) m/uL Hgb 11.7 L (13.0-17.5) gm/dL Hct 36.0 L (39.0-53.0) % MCV 109.2 H (80.0-100.0) fL MCH 35.5 H (25.0-35.0) pg Plt Count 142 L (150-450) k/uL Carbon Dioxide 32 H (22-30) mmol/L BUN 24 H (9-20) mg/dL Glucose 128 H (74-99) mg/dL AST 209 H (17-59) U/L ALT 450 H (21-72) U/L Total Protein 4.9 L (6.3-8.2) g/dL Albumin 2.6 L (3.5-5.0) g/dL Microbiology - Last 24 Hours (Table) 01/07/18 03:32 Blood Culture - Preliminary Blood No Growth after 24 hours 01/07/18 00:56 Blood Culture - Preliminary Blood No Growth after 24 hours Assessment and Plan (1) Metabolic encephalopathy Narrative/Plan: * Resolved likely secondary to ongoing methadone use superimposed on chronic alcoholism * Patient counseled on on the risks of combining alcohol with opiate use Current Visit: Yes Status: Resolved Code(s): G93.41 - METABOLIC ENCEPHALOPATHY SNOMED Code(s): 42603153 (2) Pneumonia Narrative/Plan: * Continue current antibiotic regimen with Zosyn and vancomycin * Awaiting further pulmonary recommendations, will consult ID for further recommendations * Repeat chest x-ray showing hypoventilatory changes diffuse interstitial densities are similar. Basilar densities also slightly increased Current Visit: Yes Status: Acute Code(s): J18.9 - PNEUMONIA, UNSPECIFIED ORGANISM SNOMED Code(s): 586284797 (3) Lactic acidosis Current Visit: Yes Status: Resolved Code(s): E87.2 - ACIDOSIS SNOMED Code( s): 38455288 (4) Non-STEMI (non-ST elevated myocardial infarction) Narrative/Plan: * Likely secondary to demand ischemia secondary to hypotension/dehydration from possible sepsis versus chronic alcoholism Current Visit: Yes Status: Acute Code(s): I21.4 - NON-ST ELEVATION (NSTEMI) MYOCARDIAL INFARCTION SNOMED Code(s): 971039218 (5) Hyperkalemia Narrative/Plan: * Potassium trending down from 5.7-5.3 we'll continue to monitor Current Visit: Yes Status: Acute Code(s): E87.5 - HYPERKALEMIA SNOMED Code (s): 64746041 (6) Alcohol dependence Narrative/Plan: * Continue with alcohol withdrawal protocol * Continue with thiamine and multivitamins Current Visit: Yes Status: Acute Code(s): F10.20 - ALCOHOL DEPENDENCE, UNCOMPLICATED SNOMED Code(s): 21173823 (7) COPD with exacerbation Narrative/Plan: * Likely triggered by underlying pneumonia * Continue with scheduled and when necessary DuoNeb breathing treatments * Awaiting feedback from pulmonary Current Visit: Yes Status: Acute Code(s): J44.1 - CHRONIC OBSTRUCTIVE PULMONARY DISEASE W (ACUTE) EXACERBATION SNOMED Code(s): 294363181 Plan: The patient will likely be here over the weekend and into Thursday, see case management notes will need placement to the [facility] next week
[2018-01-08] MEDS ORDERED: PANTOPRAZOLE 40 MG TABLET PO SCH (13:00)
--- NOTE | 2018-01-08 14:43 | P.PN ---
Subjective Progress Note Date: 01/08/18 This is a 62-year-old gentleman with history of sarcoidosis, hypertension, COPD , who was brought to the hospital after being found unresponsive by a neighbor. He was in the hospital until December 27, and was just discharged to an extended Care facility, he had just arrived home approximately 2 days ago. He admits to drinking a pint of liquor, patient was also taking methadone and does not remember exactly how much. Because of mildly abnormal troponins at cardiology consultation was requested. He was seen in consultation yesterday by Dr. العراقي. An echocardiogram with Doppler study was performed which revealed a normal left ventricular systolic function. No further cardiac workup recommended at this time. Patient did have a stress test in July 2017 which did not reveal any evidence of ischemia. Objective - Vital Signs Vital signs: Vital Signs Temp 97.8 F 01/08/18 11:40 Pulse 92 01/08/18 12:43 Resp 15 01/08/18 11:40 BP 116/89 01/08/18 11:40 Pulse Ox 92 L 01/08/18 11:40 Intake & Output 01/07/18 01/08/18 01/08/18 18:59 06:59 18:59 Intake Total 980 1150 760 Output Total 650 600 Balance 980 500 160 Weight 89.9 kg Intake: IV 1150 Piperacillin-Tazobactam 3 100 .375 gm In Dextrose/Water 1 50ml.bag @ 12.5 mls/hr IVPB Q8HR [facility] Rx#: [id number] Sodium Chloride 0.9% 1, 800 000 ml @ 150 mls/hr IV . Q6H40M [facility] Rx#:[id number] Vancomycin 1,500 mg In 250 Sodium Chloride 0.9% 250 ml @ 125 mls/hr IVPB Q12H [facility] Rx#:[id number] Intake, IV Titration 100 Amount Piperacillin-Tazobactam 3 100 .375 gm In Dextrose/Water 1 50ml.bag @ 12.5 mls/hr IVPB Q8HR [facility] Rx#: [id number] Oral 880 760 Output: Urine 650 600 Other: # Voids 1 - Exam PHYSICAL EXAMINATION: HEENT: Head is atraumatic, normocephalic. Pupils equal, round. Neck is supple. There is no elevated jugular venous pressure. HEART EXAMINATION: Heart S1, S2 normal. No murmur or gallop heard. CHEST EXAMINATION: Lungs reveal diminished air entry to bilateral bases. ABDOMEN: Soft, nontender. Bowel sounds are heard. No organomegaly noted. EXTREMITIES: 2+ peripheral pulses with no evidence of peripheral edema and no calf tenderness noted. NEUROLOGIC patient is awake, alert and oriented -3. . - Labs CBC & Chem 7: 01/08/18 10:09 01/08/18 10:09 Labs: Abnormal Lab Results - Last 24 Hours (Table) 01/08/18 01/08/18 Range/Units 10:09 10:09 RBC 3.30 L (4.30-5.90) m/uL Hgb 11.7 L (13.0-17.5) gm/dL Hct 36.0 L (39.0-53.0) % MCV 109.2 H (80.0-100.0) fL MCH 35.5 H (25.0-35.0) pg Plt Count 142 L (150-450) k/uL Carbon Dioxide 32 H (22-30) mmol/L BUN 24 H (9-20) mg/dL Glucose 128 H (74-99) mg/dL AST 209 H (17-59) U/L ALT 450 H (21-72) U/L Total Protein 4.9 L (6.3-8.2) g/dL Albumin 2.6 L (3.5-5.0) g/dL Microbiology - Last 24 Hours (Table) 01/07/18 03:32 Blood Culture - Preliminary Blood No Growth after 24 hours 01/07/18 00:56 Blood Culture - Preliminary Blood No Growth after 24 hours Assessment and Plan Plan: Assessment and plan #1 unresponsiveness, likely secondary to ongoing methadone use and chronic alcoholism #2 abnormal troponins, not consistent with acute coronary syndrome, echo revealed normal left ventricular systolic function. Plan From cardiology's perspective, no further workup at this time. We will follow this patient along with you now on an as-needed basis only, please don't hesitate to call with any questions. DNP note has been reviewed, I agree with a documented findings and plan of care. Patient was seen and examined.
--- NOTE | 2018-01-08 21:37 | CONS ---
CONSULTATION DATE OF SERVICE: 01/08/2018. REASON FOR CONSULTATION: Antibiotic management pneumonia. HISTORY OF PRESENT ILLNESS: The patient is a 62-year-old male recently treated at this facility and subsequent discharge to the extended care facility for rehabilitation. The patient has just been discharged home and apparently the patient was noticed to be confused with mental status changes and found unresponsive at home by his neighbor on 01/06/2018. Subsequently, EMS was called and the patient was brought into the ER. The patient did receive Narcan with slight improvement in his mentation. He did have an x-ray done on admission that shows increased density in the left infrahilar region, may reflect infiltrate. The patient, though, did not have any high-grade fever. However, his white count was elevated at 13.9 with concern for possible aspiration pneumonia. Patient started on broad-spectrum IV antibiotics in the form of vancomycin and Zosyn. Infectious Disease was consulted this morning for recommendations regarding antibiotic therapy. The patient apparently did have overall improvement in his mentation. He is more awake and alert today. He is breathing comfortably. He did mention that when he went home from rehab, he started drinking and may have over drunk. The patient denies having any URI symptoms and no chest pain. Breathing is baseline. He did have a cough, bringing up some yellow sputum. No hemoptysis. No abdominal pain. No nausea, vomiting. No choking on food and no diarrhea. REVIEW OF SYSTEMS: CONSTITUTIONAL: Positive for weakness. No high-grade fever. EYES: No complaint. ENT: No complaint. RESPIRATORY: As per HPI. CARDIOVASCULAR: No complaint. GENITOURINARY: No complaint. GASTROINTESTINAL: No complaint. MUSCULOSKELETAL: No complaint. INTEGUMENTARY: No complaint. PSYCHOLOGICAL: No complaint. ENDOCRINE: No complaint. NEUROLOGICAL: No complaint. PAST MEDICAL HISTORY: COPD, hypertension , chronic hepatitis C, pneumothorax, CHF with diastolic dysfunction and previous history of a MRSA infection. PAST SURGICAL HISTORY: Neck fracture repair. SOCIAL HISTORY: Positive for smoking, quit a few weeks ago. Continued to be drinking, but no drug use. FAMILY HISTORY: Father with history of congestive heart failure, coronary artery disease and hypertension. Mother with history of melanoma and hypertension. ALLERGIES: No known drug allergies. MEDICATIONS: The patient is currently on: 1. DuoNeb. 2. Aspirin. 3. Symbicort. 4. Folic acid. 5. Heparin. 6. Imdur. 7. Ativan. 8. Theragran. 9. Narcan. 10.Protonix. 11.Zosyn. 12.Prednisone. 13.Vancomycin. Pharmacy to dose. EXAMINATION: Blood pressure is 120/89 with a pulse of 93, temperature 97.8. He is 93% on 2L nasal cannula. General description is a middle-aged male lying in bed in no distress. No tachypnea or accessory muscle of respiration use. HEENT shows pallor. No scleral icterus. Oral mucous membranes are moist. No pharyngeal erythema, thrush. NECK: Trachea central. No thyromegaly. LUNGS: Unlabored breathing with decreased breath sounds in the bases. No wheeze or crackle. HEART: S1, S2. Regular rate and rhythm. ABDOMEN: Soft. There is no tenderness, no guarding, no rigidity. EXTREMITIES: No edema of feet. SKIN: No rashes or masses palpable. NEUROLOGICAL: Patient is awake, alert, oriented x3. Mood and affect normal. LABS: Hemoglobin is 11.7, white count of 9.0 with a BUN of 24, creatinine 0.70. Did have elevated liver enzymes. CK-MB was slightly elevated and troponin. He did have blood culture obtained which is currently pending. Sputum collected by doctors in ER. DIAGNOSTIC IMPRESSION AND PLAN: Patient admitted to the hospital with mental status changes, confusion with a history of heavy drinking with a finding of elevated white count 13.9 with a left perihilar infiltrate with a concern for possible aspiration pneumonitis cannot be entirely excluded in a who patient has been in the hospital recently. Will need to confirm this is a resistant gram-negative pathogen. Clinically, suspicion low for an methicillin- resistant Staphylococcus aureus infection. PLAN: 1. We will try to obtain sputum for Gram stain culture and sensitivity. 2. Zosyn 3.375 g IV piggyback q.8 hours to continue. However, discontinue the vancomycin, as clinically doubt MRSA infection and to decrease risk of nephrotoxicity. 3. We will follow up on his clinical condition and culture to further adjust medication if needed. Thank you for this consultation. Will follow this patient along with you. MMODL / IJN: [id number] /
--- NOTE | 2018-01-08 21:53 | P.CNPUL ---
History of Present Illness Consult date: 01/08/18 Reason for consult: dyspnea, cough, COPD Chief complaint: Shortness of breath History of present illness: 62-year-old male with past history of pulmonary sarcoidosis, COPD and hypertension. Patient was reluctant to give a detailed history but later on was able to describe in detail and described his ongoing problem with alcohol and intoxication with that, Patient was found initially unresponsive at home by his neighbor. The patient was here in the hospital up until December 27 where he was discharged to [facility], he spent a week or so there and then just got discharged home spent 2 days home and returned back to the hospital. He reports that his house had no heat. He admits to drinking a pint of liquor, but denies overdosing on methadone however he admits to taking the prescribed dose of 20 mg in the morning and 20 mg at night. He does not remember any details of foot happened but he reported that he lost his dog while he was at [facility] that made him very sad He denies any fevers or chills he reports chronic coughing at times with pleuritic chest pain otherwise denies any nausea or vomiting, shortness of breath, abdominal pain, changes in his urination or bowel movement. He is very sleepy but easily arousable however will drift back to sleep if not in the emergency department patient was found to have mild elevation of lactic acid is suspected to have aspiration pneumonia he responded to couple doses of naloxone and started regaining consciousness Review of Systems All systems: negative Past Medical History Past Medical History: Asthma, Chest Pain / Angina, Heart Failure, COPD, Hypertension, Liver Disease, Pneumonia Additional Past Medical History / Comment(s): COPD, recent hospitalization with fall and a small right-sided pneumothorax, traumatic seventh through ninth nondisplaced rib fractures, alcoholism, previous history of delirium tremens, liver 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 states his lung Past Surgical History: Orthopedic Surgery Additional Past Surgical History / Comment(s): neck fracture, Past Anesthesia/Blood Transfusion Reactions: No Reported Reaction Past Psychological History: Anxiety Smoking Status: Former smoker - Past Family History Father Family Medical History: Congestive Heart Failure (CHF), Coronary Artery Disease (CAD), Hypertension Mother Family Medical History: Cancer, Hypertension Additional Family Medical History / Comment(s): Melanoma on nose. Medications and Allergies Home Medications Medication Instructions Recorded Confirmed Type Budesonide-Formot 160-4.5 Mcg 2 puff INHALATION RT-BID #1 inhaler 08/08/1701/06 Rx [Symbicort 160-4.5 Mcg Inhaler] Ipratropium-Albuterol Nebulize 3 ml INHALATION RT-QID #300 12/14/17 01/06/18 Rx [Duoneb 0.5 mg-3 mg/3 ml Soln] ampul.neb Pantoprazole [Protonix] 40 mg PO AC-BRKFST tablet. 12/14/17 01/06/18 Rx Aspirin 325 mg PO DAILY tab 12/19/17 01/06/18 Rx Thiamine [Vitamin B-1] 100 mg PO BID@1200,1700 tab 12/19/17 01/06/18 Rx LORazepam [Ativan] 1 mg PO TID PRN #20 tab 12/23/17 01/06/18 Rx Isosorbide Mononitrate ER [Imdur] 30 mg PO DAILY #1 tab 12/25/17 01/06/18 Rx Folic Acid 1 mg PO DAILY@1200 01/06/18 01/06/18 History Methadone [Dolophine] 20 mg PO Q12H 01/06/18 01/06/18 History Multivitamins, Thera [Multivitamin 1 tab PO DAILY@1200 01/06/18 01/06/18 History (formulary)] Allergies Allergy/AdvReac Type Severity Reaction Status Date / Time [place] Feces Allergy Dyspnea Uncoded 01/06/18 15:35 Physical Exam Vitals: Vital Signs Temp Pulse Pulse Pulse Resp BP Pulse Ox 01/08/18 20:27 92 01/08/18 20:15 94 01/08/18 19:30 97.1 F L 79 18 132/76 95 01/08/18 15:20 94 01/08/18 15:10 94 01/08/18 15:08 97.8 F 93 16 120/89 93 L 01/08/18 12:43 92 01/08/18 12:31 92 01/08/18 11:40 97.8 F 92 15 116/89 92 L 01/08/18 08:46 92 18 01/08/18 08:38 100 01/08/18 08:29 100 95 01/08/18 07:50 98.7 F 101 H 15 113/78 95 01/08/18 04:00 97.3 F L 94 18 139/81 93 L 01/08/18 00:00 97.3 F L 103 H 18 142/74 94 L Intake and Output 01/08/18 01/08/18 01/08/18 06:59 14:59 22:59 Intake Total 50 760 240 Output Total 650 600 600 Balance -600 160 -360 Intake: IV 50 Piperacillin-Tazobactam 3 50 .375 gm In Dextrose/Water 1 50ml.bag @ 12.5 mls/hr IVPB Q8HR [facility] Rx#: [id number] Oral 760 240 Output: Urine 650 600 600 Other: Voiding Method Toilet # Voids 1 Weight 89.9 kg - Constitutional General appearance: average body habitus, cooperative, disheveled, mild distress - EENT Eyes: anicteric sclerae, EOMI, PERRLA, normal appearance ENT: normal oropharynx Ears: bilateral: normal - Neck Neck: normal ROM Carotids: bilateral: upstroke normal, bruit absent Thyroid: bilateral: normal size - Respiratory Respiratory: bilateral: CTA, negative: diminished, dullness, rales, rhonchi, wheezing, prolonged expiration, prolonged inspiration - Cardiovascular Heart sounds: normal: S1, S2 - Gastrointestinal General gastrointestinal: decreased bowel sounds - Neurologic Neurologic: CNII-XII intact - Musculoskeletal Musculoskeletal: gait normal, generalized weakness, strength equal bilaterally - Psychiatric Psychiatric: A&O x's 3, appropriate affect, intact judgment & insight Results - Laboratory Findings CBC and BMP: 01/08/18 10:09 01/08/18 10:09 Abnormal lab findings: Abnormal Labs 01/06/18 01/06/18 01/06/18 15:15 15:15 15:15 WBC 13.9 H RBC Hgb Hct MCV 108.6 H MCH Plt Count Neutrophils # 12.9 H Lymphocytes # 0.4 L Potassium 5.7 H Chloride 97 L Carbon Dioxide BUN 25 H Glucose 105 H Plasma Lactic Acid Ryan Total Bilirubin 2.3 H AST 641 H ALT 832 H Total Creatine Kinase 485 H CK-MB (CK-2) 21.5 H* Troponin I Total Protein Albumin Urine Protein Urine Ketones Urine Bilirubin Urine Methadone Screen U Benzodiazepines Scrn 01/06/18 01/06/18 01/06/18 15:42 17:10 17:10 WBC RBC Hgb Hct MCV MCH Plt Count Neutrophils # Lymphocytes # Potassium Chloride Carbon Dioxide BUN Glucose Plasma Lactic Acid Ryan 2.4 H* Total Bilirubin AST ALT Total Creatine Kinase CK-MB (CK-2) Troponin I Total Protein Albumin Urine Protein Trace H Urine Ketones 2+ H Urine Bilirubin 1+ H Urine Methadone Screen Detected H U Benzodiazepines Scrn Detected H 01/06/18 01/07/18 01/07/18 22:26 03:32 10:15 WBC RBC 3.39 L Hgb 12.2 L D Hct 35.8 L MCV 105.6 H MCH 36.1 H Plt Count 132 L Neutrophils # 9.7 H Lymphocytes # 0.4 L Potassium Chloride Carbon Dioxide BUN Glucose Plasma Lactic Acid Ryan Total Bilirubin AST ALT Total Creatine Kinase 271 H 188 H CK-MB (CK-2) 11.9 H* 8.2 H* Troponin I 0.048 H* 0.050 H* Total Protein Albumin Urine Protein Urine Ketones Urine Bilirubin Urine Methadone Screen U Benzodiazepines Scrn 01/07/18 01/08/18 01/08/18 10:15 10:09 10:09 WBC RBC 3.30 L Hgb 11.7 L Hct 36.0 L MCV 109.2 H MCH 35.5 H Plt Count 142 L Neutrophils # Lymphocytes # Potassium 5.3 H Chloride Carbon Dioxide 32 H BUN 21 H 24 H Glucose 158 H 128 H Plasma Lactic Acid Ryan Total Bilirubin AST 345 H 209 H ALT 564 H 450 H Total Creatine Kinase CK-MB (CK-2) Troponin I Total Protein 4.9 L 4.9 L Albumin 2.6 L 2.6 L Urine Protein Urine Ketones Urine Bilirubin Urine Methadone Screen U Benzodiazepines Scrn - Diagnostic Findings Chest x-ray: report reviewed, image reviewed (Admit x-ray suggested a left hilar densely likely developing pneumonia, ultrasound of the gallbladder unremarkable, computed tomography scan of the head revealed atrophic changes in the cerebellum no acute intracranial changes identified) Assessment and Plan Assessment: Incorrect consultation was placed for another pulmonary group by primary service now appropriately switched to ut, his mental status has significantly improved, he is been eval or by psychiatric service ID service and cardiovascular services has been following this patient as well Left perihilar pneumonia on broad-spectrum antibiotics may very well be aspiration related Altered mental status encephalopathy likely related to alcohol however associated methadone intoxication cannot be excluded patient's mental status has significantly improved Lactic acidosis significantly improved Non-ST segment elevated MS Electrolyte imbalance with hyperkalemia, resolving improved significantly Alcoholism and dependence on methadone patient has been following chronic pain management and services Plan: Continue gentle hydration Monitor clinical course closely continue antibiotic supportive care patient will likely require placement of extended care facility Continue breathing treatment DVT and peptic ulcer disease prophylaxis will follow clinical course closely agree with discharge planning to [facility]CF once clinically improved and cleared by cardiovascular services Time with Patient: Greater than 30
[2018-01-09] MEDS ORDERED: VANCOMYCIN TROUGH DUE 1 EACH MISC MISCELLANE ONE (04:00)
[2018-01-09] MEDS: PANTOPRAZOLE 40 MG TABLET PO SCH (06:03)
[2018-01-09] MEDS: IPRATROPIUM-ALBUTEROL 3 ML NEB INHALATION SCH ×4 (08:00→20:16)
[2018-01-09] MEDS: SYMBICORT 160-4.5 MCG INHALER INHALATION SCH ×2 (08:01→20:16)
[2018-01-09] MEDS: HEPARIN SODIUM,PORCINE 5,000 UNIT/ML 1 ML VIAL SQ SCH ×3 (08:44→23:11)
[2018-01-09] MEDS: PIPERACILLIN-TAZOBACTAM 3.375 GM in DEXTROSE/WATER 1 50ML.BAG IVPB SCH ×3 (08:44→23:10)
[2018-01-09] MEDS: ASPIRIN 325 MG TAB PO SCH (08:45)
[2018-01-09] MEDS: predniSONE 20 MG TAB PO SCH (08:45)
[2018-01-09] MEDS: FOLIC ACID 1 MG TAB PO SCH (08:45)
[2018-01-09] MEDS: ISOSORBIDE MONONITRATE ER 30 MG TAB.ER.24H PO SCH (08:45)
[2018-01-09] MEDS: THIAMINE 100 MG TAB PO SCH ×2 (08:46→15:34)
[2018-01-09] MEDS: MULTIVITAMINS, THERA 1 EACH TAB PO SCH (08:46)
--- NOTE | 2018-01-09 11:45 | P.PN ---
Subjective Progress Note Date: 01/09/18 Patient feeling much better today, is much more arousable and communicative which is a drastic improvement per review of EMR records. Patient is awake alert and oriented Answering questions appropriately. Denies any previous chest pain leading up to this hospitalization, reports the shortness of breath is improving but still having wheezes, had approximately two thirds of his breakfast today, planning to work with physical therapy has been up and ambulatory to the restroom, no acute events overnight Objective - Vital Signs Vital signs: Vital Signs Temp 97.4 F L 01/09/18 08:00 Pulse 92 01/09/18 11:30 Resp 20 01/09/18 08:00 BP 143/77 01/09/18 08:00 Pulse Ox 92 L 01/09/18 08:00 Intake & Output 01/08/18 01/09/18 01/09/18 18:59 06:59 18:59 Intake Total 1000 460 250 Output Total 900 1375 Balance 100 -915 250 Weight 89 kg Intake: IV 100 10 Invasive Line 2 10 Piperacillin-Tazobactam 3 100 .375 gm In Dextrose/Water 1 50ml.bag @ 12.5 mls/hr IVPB Q8HR [facility] Rx#: [id number] Oral 1000 360 240 Output: Urine 900 1375 Other: Voiding Method Urinal Urinal # Voids 1 - Exam Constitutional: No acute distress, conversant, pleasant Eyes: Anicteric sclerae, moist conjunctiva, no lid-lag, PERRLA ENMT: NC/AT,Oropharynx clear, no erythema, exudates Neck:Supple, FROM, no masses, or JVD, No carotid bruits; No thyromegaly Lungs: Mild expiratory wheezes, rales and rhonchi Clear to percussion, Normal respiratory effort, no accessory muscle use on 2 L is a cannula Cardiovascular: Heart regular in rate and rhythm, No murmurs, gallops, or rubs no peripheral edema Abdominal: Soft Nontender, nom distended, no guarding, no rebound or rigidity, Normoactive bowel sounds No hepatomegaly, No splenomegaly, No palpable mass No abdominal wall hernia noted Skin: Normal temperature, tone, texture, turgor, No induration No subcutaneous nodules, No rash, lesions, No ulcers Extremities:No digital cyanosis No clubbing, Pedal pulses intact and symmetrical Radial pulses intact and symmetrical Normal gait and station, No calf tenderness Psychiatric: Alert and oriented to person, place and time, Appropriate affect Intact judgement Neuro: Muscles Strength 5/5 in all 4 extremities, Sensation to light touch grossly present throughout, Cranial nerves II-XII grossly intact. No focal sensory deficits - Labs CBC & Chem 7: 01/08/18 10:09 01/08/18 10:09 Labs: Microbiology - Last 24 Hours (Table) 01/07/18 03:32 Blood Culture - Preliminary Blood No Growth after 48 hours 01/07/18 00:56 Blood Culture - Preliminary Blood No Growth after 48 hours 01/08/18 13:45 Gram Stain - Preliminary Sputum Assessment and Plan (1) Metabolic encephalopathy Narrative/Plan: * Resolved likely secondary to ongoing methadone use superimposed on chronic alcoholism * Patient counseled on on the risks of combining alcohol with opiate use Current Visit: Yes Status: Resolved Code(s): G93.41 - METABOLIC ENCEPHALOPATHY SNOMED Code(s): 54456117 (2) Pneumonia Narrative/Plan: * Continue current antibiotic regimen with Zosyn, vancomycin stopped by ID * Appreciate pulmonary recommendations appreciate ID recommendations * Left perihilar pneumonia Repeat chest x-ray 01/07 showing hypoventilatory changes diffuse interstitial densities are similar. Basilar densities also slightly increased Current Visit: Yes Status: Acute Code(s): J18.9 - PNEUMONIA, UNSPECIFIED ORGANISM SNOMED Code(s): 213089068 (3) Lactic acidosis Current Visit: Yes Status: Resolved Code(s): E87.2 - ACIDOSIS SNOMED Code( s): 00194620 (4) Non-STEMI (non-ST elevated myocardial infarction) Narrative/Plan: * Likely secondary to demand ischemia secondary to hypotension/dehydration from possible sepsis versus chronic alcoholism Current Visit: Yes Status: Acute Code(s): I21.4 - NON-ST ELEVATION (NSTEMI) MYOCARDIAL INFARCTION SNOMED Code(s): 238630111 (5) Hyperkalemia Narrative/Plan: * Potassium normalized Current Visit: Yes Status: Resolved Code(s): E87.5 - HYPERKALEMIA SNOMED Code(s): 01393882 (6) Alcohol dependence Narrative/Plan: * Continue with alcohol withdrawal protocol * Continue with thiamine and multivitamins Current Visit: Yes Status: Acute Code(s): F10.20 - ALCOHOL DEPENDENCE, UNCOMPLICATED SNOMED Code(s): 58151615 (7) COPD with exacerbation Narrative/Plan: * Likely triggered by underlying pneumonia * Continue with scheduled and when necessary DuoNeb breathing treatments * Awaiting feedback from pulmonary Current Visit: Yes Status: Resolved Code(s): J44.1 - CHRONIC OBSTRUCTIVE PULMONARY DISEASE W (ACUTE) EXACERBATION SNOMED Code(s): 841740495 Plan: The patient will likely be here over the weekend and into Thursday, see case management notes will need placement to the [facility] next week
--- NOTE | 2018-01-09 12:00 | P.PN ---
Subjective Progress Note Date: 01/09/18 62-year-old male with past history of pulmonary sarcoidosis, COPD and hypertension. Patient was reluctant to give a detailed history but later on was able to describe in detail and described his ongoing problem with alcohol and intoxication with that, Patient was found initially unresponsive at home by his neighbor. The patient was here in the hospital up until December 27 where he was discharged to [facility], he spent a week or so there and then just got discharged home spent 2 days home and returned back to the hospital. He reports that his house had no heat. He admits to drinking a pint of liquor, but denies overdosing on methadone however he admits to taking the prescribed dose of 20 mg in the morning and 20 mg at night. He does not remember any details of foot happened but he reported that he lost his dog while he was at [facility] that made him very sad He denies any fevers or chills he reports chronic coughing at times with pleuritic chest pain otherwise denies any nausea or vomiting, shortness of breath, abdominal pain, changes in his urination or bowel movement. He is very sleepy but easily arousable however will drift back to sleep if not in the emergency department patient was found to have mild elevation of lactic acid is suspected to have aspiration pneumonia he responded to couple doses of naloxone and started regaining consciousness 01/09/2018: Patient seen and examined covering for Dr. Garza. The patient states that he is feeling better overall. He does complain of intermittent cough. He states his breathing is getting better. He denies fevers, chills, chest pain. Objective - Vital Signs Vital signs: Vital Signs Temp 97.7 F 01/09/18 11:41 Pulse 85 01/09/18 11:43 Resp 20 01/09/18 11:43 BP 139/83 01/09/18 11:41 Pulse Ox 95 01/09/18 11:41 Intake & Output 01/08/18 01/09/18 01/09/18 18:59 06:59 18:59 Intake Total 1000 460 250 Output Total 900 1375 Balance 100 -915 250 Weight 89 kg Intake: IV 100 10 Invasive Line 2 10 Piperacillin-Tazobactam 3 100 .375 gm In Dextrose/Water 1 50ml.bag @ 12.5 mls/hr IVPB Q8HR [facility] Rx#: [id number] Oral 1000 360 240 Output: Urine 900 1375 Other: Voiding Method Urinal Urinal # Voids 1 - Exam Gen.: Patient is alert and oriented 3, no acute distress Cardiovascular: Regular rate and rhythm, S1/S2 Lungs: Diminished breath sounds bilaterally Abdomen: Soft nontender nondistended positive bowel sounds Extremities: No edema - Labs CBC & Chem 7: 01/08/18 10:09 01/08/18 10:09 Labs: Microbiology - Last 24 Hours (Table) 01/07/18 03:32 Blood Culture - Preliminary Blood No Growth after 48 hours 01/07/18 00:56 Blood Culture - Preliminary Blood No Growth after 48 hours 01/08/18 13:45 Gram Stain - Preliminary Sputum Assessment and Plan Assessment: Aspiration pneumonia Acute hypoxemia Acute exacerbation of COPD Encephalopathy, toxic Alcohol and methadone overdose Lactic acidosis NSTEMI Hyperkalemia Transaminitis Protein calorie malnutrition Macrocytic anemia History of tobacco abuse O2 to maintain saturation greater than or equal to 90% next and bronchodilators Symbicort Aspiration precautions Antibiotics per ID Abstinence from alcohol and other sedative medications Monitor labs Repeat chest x-ray in the morning Multivitamin, thiamine, folate Prednisone taper Sputum culture Continue supportive care Mental status appears to be at baseline GI and DVT prophylaxis: Protonix and heparin subcu Consult PT and OT Incentive spirometry
--- NOTE | 2018-01-09 22:17 | PN ---
PROGRESS NOTE DATE OF SERVICE: 01/09/2018 REASON FOR FOLLOWUP: Possible aspiration pneumonia. INTERVAL HISTORY: The patient is afebrile. He has been breathing more comfortably. He did have cough with some sputum. No chest pain. No abdominal pain. No nausea, vomiting or any diarrhea. EXAMINATION: Blood pressure 132/87 with a pulse of 100, temperature 98.1. He is 92% on 4L nasal cannula. General description is a middle-aged male lying in bed in no distress. RESPIRATORY SYSTEM: Unlabored breathing. Decreased breath sounds in the bases. No wheeze. HEART: S1, S2. Regular rate and rhythm. ABDOMEN: Soft. No tenderness. LABS: Hemoglobin is 11.7, white count 9.0, BUN of 24, creatinine 0.70. Sputum culture currently pending. Blood culture so far negative. DIAGNOSTIC IMPRESSION AND PLAN: Patient admitted to hospital with mental status changes. Did have elevated white count with left perihilar infiltrate, concern for possible aspiration pneumonia. The patient currently covered with Zosyn, will be continued. Will wait for the sputum culture to finalize. Will adjust antibiotic further if needed. Continue supportive care. MMODL / IJN: [id number] /
[2018-01-10] MEDS: PANTOPRAZOLE 40 MG TABLET PO SCH (07:02)
[2018-01-10] MEDS: SYMBICORT 160-4.5 MCG INHALER INHALATION SCH ×2 (07:52→19:14)
[2018-01-10] MEDS: IPRATROPIUM-ALBUTEROL 3 ML NEB INHALATION SCH ×4 (07:52→19:14)
[2018-01-10] MEDS: THIAMINE 100 MG TAB PO SCH ×2 (08:13→16:41)
[2018-01-10] MEDS: ISOSORBIDE MONONITRATE ER 30 MG TAB.ER.24H PO SCH (08:13)
[2018-01-10] MEDS: predniSONE 20 MG TAB PO SCH (08:14)
[2018-01-10] MEDS: MULTIVITAMINS, THERA 1 EACH TAB PO SCH (08:14)
[2018-01-10] MEDS: ASPIRIN 325 MG TAB PO SCH (08:14)
[2018-01-10] MEDS: HEPARIN SODIUM,PORCINE 5,000 UNIT/ML 1 ML VIAL SQ SCH ×3 (08:14→23:24)
[2018-01-10] MEDS: FOLIC ACID 1 MG TAB PO SCH (08:14)
[2018-01-10 08:23] VITALS: RESP 16
[2018-01-10] MEDS: PIPERACILLIN-TAZOBACTAM 3.375 GM in DEXTROSE/WATER 1 50ML.BAG IVPB SCH ×3 (10:54→23:24)
--- NOTE | 2018-01-10 12:42 | P.PN ---
Subjective Progress Note Date: 01/10/18 Patient feeling much better today, in great spirits wants to go home, has been weaned off oxygen. No acute events overnight Objective - Vital Signs Vital signs: Vital Signs Temp 97.1 F L 01/10/18 08:00 Pulse 93 01/10/18 12:00 Resp 16 01/10/18 12:00 BP 147/75 01/10/18 12:00 Pulse Ox 92 L 01/10/18 12:00 Intake & Output 01/09/18 01/10/18 01/10/18 18:59 06:59 18:59 Intake Total 840 400 50 Output Total 1500 1425 Balance -660 -1025 50 Weight 87 kg Intake: IV 60 100 Invasive Line 2 10 Piperacillin-Tazobactam 3 50 100 .375 gm In Dextrose/Water 1 50ml.bag @ 12.5 mls/hr IVPB Q8HR [facility] Rx#: [id number] Intake, IV Titration 50 Amount Piperacillin-Tazobactam 3 50 .375 gm In Dextrose/Water 1 50ml.bag @ 12.5 mls/hr IVPB Q8HR [facility] Rx#: [id number] Oral 780 300 Output: Urine 1500 1425 Other: Voiding Method Urinal Urinal Urinal - Exam Constitutional: No acute distress, conversant, pleasant Eyes: Anicteric sclerae, moist conjunctiva, no lid-lag, PERRLA ENMT: NC/AT,Oropharynx clear, no erythema, exudates Neck:Supple, FROM, no masses, or JVD, No carotid bruits; No thyromegaly Lungs: Mild expiratory wheezes, clear to auscultation Clear to percussion, Normal respiratory effort, no accessory muscle use on room air CV:heart regular in rate and rhythm, No murmurs, gallops, or rubs no peripheral edema Abdominal: Soft Nontender, nom distended, no guarding, no rebound or rigidity, Normoactive bowel sounds No hepatomegaly, No splenomegaly, No palpable mass No abdominal wall hernia noted Skin: Normal temperature, tone, texture, turgor, No induration No subcutaneous nodules, No rash, lesions, No ulcers Extremities:No digital cyanosis No clubbing, Pedal pulses intact and symmetrical Radial pulses intact and symmetrical Normal gait and station, No calf tenderness Psychiatric: Alert and oriented to person, place and time, Appropriate affect Intact judgement Neuro: Muscles Strength 5/5 in all 4 extremities, Sensation to light touch grossly present throughout, Cranial nerves II-XII grossly intact. No focal sensory deficits - Labs CBC & Chem 7: 01/08/18 10:09 01/08/18 10:09 Labs: Microbiology - Last 24 Hours (Table) 01/08/18 13:45 Gram Stain - Final Sputum Sputum Culture - Final 01/07/18 03:32 Blood Culture - Preliminary Blood No Growth after 72 hours 01/07/18 00:56 Blood Culture - Preliminary Blood No Growth after 72 hours Assessment and Plan (1) Metabolic encephalopathy Narrative/Plan: * Resolved likely secondary to ongoing methadone use superimposed on chronic alcoholism * Patient counseled on on the risks of combining alcohol with opiate use Current Visit: Yes Status: Resolved Code(s): G93.41 - METABOLIC ENCEPHALOPATHY SNOMED Code(s): 32479568 (2) Pneumonia Narrative/Plan: * Continue current antibiotic regimen with Zosyn, vancomycin stopped by ID * Appreciate pulmonary recommendations appreciate ID recommendations * Left perihilar pneumonia Repeat chest x-ray 01/07 showing hypoventilatory changes diffuse interstitial densities are similar. Basilar densities also slightly increased Current Visit: Yes Status: Acute Code(s): J18.9 - PNEUMONIA, UNSPECIFIED ORGANISM SNOMED Code(s): 630201403 (3) COPD with exacerbation Narrative/Plan: * Likely triggered by underlying pneumonia * Continue with scheduled and when necessary DuoNeb breathing treatments * Awaiting feedback from pulmonary Current Visit: Yes Status: Resolved Code(s): J44.1 - CHRONIC OBSTRUCTIVE PULMONARY DISEASE W (ACUTE) EXACERBATION SNOMED Code(s): 176757132 (4) Non-STEMI (non-ST elevated myocardial infarction) Narrative/Plan: * Likely secondary to demand ischemia secondary to hypotension/dehydration from possible sepsis versus chronic alcoholism Current Visit: Yes Status: Acute Code(s): I21.4 - NON-ST ELEVATION (NSTEMI) MYOCARDIAL INFARCTION SNOMED Code(s): 367552160 (5) Hyperkalemia Current Visit: Yes Status: Resolved Code(s): E87.5 - HYPERKALEMIA SNOMED Code(s): 40953059 (6) Alcohol dependence Narrative/Plan: * Continue with alcohol withdrawal protocol * Continue with thiamine and multivitamins Current Visit: Yes Status: Acute Code(s): F10.20 - ALCOHOL DEPENDENCE, UNCOMPLICATED SNOMED Code(s): 24851784 (7) Lactic acidosis Current Visit: Yes Status: Resolved Code(s): E87.2 - ACIDOSIS SNOMED Code( s): 89259855 Plan: The patient will likely be here over the and into Thursday, see case management notes will need placement to the [facility] next week, patient stable for transfer from [facility] to a nonmonitored bed
--- NOTE | 2018-01-10 21:54 | PN ---
PROGRESS NOTE DATE OF SERVICE: 01/10/2018. REASON FOR FOLLOWUP: Aspiration pneumonia. INTERVAL HISTORY: The patient is afebrile. He seems to be breathing more comfortably. Denies having any chest pain. Minimal cough. No nausea, vomiting. No abdominal pain. No diarrhea. EXAMINATION: Blood pressure 147/75 with a pulse of 90, temperature 98. He is 92% on 4 L nasal cannula. General description is a middle-aged male lying in bed in no distress. Respiratory system: Unlabored breathing with decreased breath sounds in the bases. No wheeze. Heart S1, S2. Regular rate and rhythm. Abdomen soft, no tenderness. LABS: Hemoglobin 11.7, white count 9.0, with a BUN of 24, creatinine 0.70. Sputum is usual respiratory rocio. DIAGNOSTIC IMPRESSION AND PLAN: Patient with aspiration pneumonia. Initial concern for possible gram negative. However, sputum has been used blood culture negative. Currently, Zosyn has been transitioned to oral Augmentin for another 5-7 days on discharge. Continue supportive care. MMODL / IJN: [id number] /
[2018-01-11] MEDS: PANTOPRAZOLE 40 MG TABLET PO SCH (06:29)
[2018-01-11] MEDS: SYMBICORT 160-4.5 MCG INHALER INHALATION SCH (07:01)
[2018-01-11] MEDS: IPRATROPIUM-ALBUTEROL 3 ML NEB INHALATION SCH ×3 (07:02→16:17)
[2018-01-11] MEDS: ASPIRIN 325 MG TAB PO SCH (08:07)
[2018-01-11] MEDS: FOLIC ACID 1 MG TAB PO SCH (08:07)
[2018-01-11] MEDS: HEPARIN SODIUM,PORCINE 5,000 UNIT/ML 1 ML VIAL SQ SCH (08:07)
[2018-01-11] MEDS: predniSONE 20 MG TAB PO SCH (08:07)
[2018-01-11] MEDS: MULTIVITAMINS, THERA 1 EACH TAB PO SCH (08:07)
[2018-01-11] MEDS: THIAMINE 100 MG TAB PO SCH (08:07)
[2018-01-11] MEDS: ISOSORBIDE MONONITRATE ER 30 MG TAB.ER.24H PO SCH (08:07)
[2018-01-11 08:16] VITALS: TEMP 96.6
[2018-01-11] MEDS: PIPERACILLIN-TAZOBACTAM 3.375 GM in DEXTROSE/WATER 1 50ML.BAG IVPB SCH (08:24)
[2018-01-11 12:19] VITALS: BP 126/85
--- NOTE | 2018-01-11 15:13 | PN ---
PROGRESS NOTE DATE OF SERVICE: 01/11/2018 REASON FOR FOLLOWUP: Aspiration pneumonia. INTERVAL HISTORY: The patient is afebrile. He is breathing more comfortably. Denies having any chest pain. Occasional cough which is dry in nature. No abdominal pain. No nausea, vomiting or diarrhea. PHYSICAL EXAMINATION: Blood pressure 126/85 with a pulse of 98, temperature 98, he is 92% on 2 L nasal cannula. General description is a middle-aged male, lying in bed in no distress. RESPIRATORY SYSTEM: Unlabored breathing, clear to auscultation anteriorly. HEART: S1, S2. Regular rate and rhythm. ABDOMEN: Soft, no tenderness. LABS: Hemoglobin 11.7, white count 9.0 with a BUN of 24, creatinine 0.70. DIAGNOSTIC IMPRESSION AND PLAN: Patient admitted to the hospital with unresponsiveness and component of possible aspiration pneumonia. Sputum has been negative for resistant pathogen. Patient is currently on the Zosyn with transition to oral Augmentin for about a week. Finish course of physical therapy, continue supportive care. MMODL / IJN: [id number] /
--- NOTE | 2018-01-11 15:49 | P.DS ---
Providers Date of admission: 01/06/18 19:49 Expected date of discharge: 01/11/18 Attending physician: Nini Weldon MD Consults: 01/06/18 19:59 Consult Physician Routine Consulting Provider: She Muniz Consult Reason/Comments: overdose Do you want consulting provider notified?: Yes 01/07/18 00:22 Consult Physician Routine Consulting Provider: Emeterio Moore Consult Reason/Comments: elevated trops, chest pain Do you want consulting provider notified?: Yes 01/07/18 14:55 Consult Physician Urgent Consulting Provider: Durga Garza Consult Reason/Comments: SOB Do you want consulting provider notified?: Yes 01/08/18 13:11 Consult Physician Routine Consulting Provider: Garo Gil Consult Reason/Comments: antibiotic guidance Do you want consulting provider notified?: Yes Primary care physician: Stated None Hospital Course: 62-year-old male with past history of pulmonary sarcoidosis, COPD and hypertension presented to the ER after he was found unresponsive at home by his neighbor. The patient was here in the hospital up until December 27 where he was discharged to [facility], he spent a week or so there and then just got discharged home spent 2 days home and no back to the hospital. When patient first presented to the emergency department he was very confused and sleepy and was not very reliable with the history. He was easily arousable. He reported that his house had no heat. He admitted to drinking a pint of liquor, denied taking any extra doses of the methadone that he is on. He denied any fevers or chills but he reported chronic coughing with some pleuritic chest pain. He otherwise denied any nausea or vomiting, shortness of breath, abdominal pain, changes in his urination or bowel movement. He does not remember any details of what happened but he reported that he lost his dog while he was at [facility] that made him very sad however he denied any suicidal ideation. In the emergency department patient was found to have mild elevation of lactic acid, chest x-ray showed suspected aspiration pneumonia. He was given some naloxone in the emergency department and subsequently he started regaining consciousness. Initially he was started on Zosyn and vancomycin for pneumonia treatment but the vancomycin was discontinued later throughout the hospitalization. He was resumed on Zosyn. Blood and sputum cultures were negative for any growth. Patient was also treated with IV fluids for dehydration. Patient was evaluated by psychiatry for possible suicidal intent with overdose and overdrinking. Dr. Muniz did not think that patient had any psychiatric condition at this point, he was not deemed suicidal. Laboratory findings revealed leukocytosis of 13,000 when he first presented but that later resolved. His electrolytes were all within normal limits. He had a positive troponin at 0.048, was seen by cardiology who evaluated him. The troponin elevation was thought to be nonspecific secondary to pneumonia and alcohol use. Echocardiogram was done and that came back without any acute abnormalities. Patient was also evaluated by pulmonary and infectious disease who concurred with the above management. Case was discussed with care management and physical therapy. Patient is too strong to qualify for rehab at this point. Care management told me that patient will not be able to go to an assisted living facility because of difficulties with finances because of that he will be discharged home for now. His guardian will be working on insurance application so that patient will be able to afford going to some form of an assisted living facility. Patient told me today that he has to much to live for and that he is not planning to go back to drinking again. He thinks that he is over the of his dog. Patient was instructed to follow-up with his primary care physician as soon as possible. He was also told to come back to the emergency department he had any worsening shortness of breath, fevers or chills. Discharge diagnoses: Aspiration pneumonia Acute toxic metabolic encephalopathy resolved History of alcohol/opiate abuse COPD exacerbation Patient Condition at Discharge: Stable Plan - Discharge Summary Discharge Rx Participant: No New Discharge Prescriptions: New Amoxicillin/Potassium Clav [Augmentin 875-125 Tablet] 1 tab PO Q12HR #20 tab methylPREDNISolone [Medrol Dose Pack] 4 mg PO DIRECTED #1 pack Continue Budesonide-Formot 160-4.5 Mcg [Symbicort 160-4.5 Mcg Inhaler] 2 puff INHALATION RT-BID #1 inhaler Pantoprazole [Protonix] 40 mg PO AC-BRKFST tablet. Ipratropium-Albuterol Nebulize [Duoneb 0.5 mg-3 mg/3 ml Soln] 3 ml INHALATION RT-QID #300 ampul.neb Aspirin 325 mg PO DAILY tab Thiamine [Vitamin B-1] 100 mg PO BID@1200,1700 tab LORazepam [Ativan] 1 mg PO TID PRN #20 tab PRN Reason: Agitation Isosorbide Mononitrate ER [Imdur] 30 mg PO DAILY #1 tab Folic Acid 1 mg PO DAILY@1200 Methadone [Dolophine] 20 mg PO Q12H Multivitamins, Thera [Multivitamin (formulary)] 1 tab PO DAILY@1200 Discharge Medication List Budesonide-Formot 160-4.5 Mcg [Symbicort 160-4.5 Mcg Inhaler] 2 puff INHALATION RT-BID #1 inhaler 08/08/17 [Rx] Ipratropium-Albuterol Nebulize [Duoneb 0.5 mg-3 mg/3 ml Soln] 3 ml INHALATION RT -QID #300 ampul.neb 12/14/17 [Rx] Pantoprazole [Protonix] 40 mg PO AC-BRKFST tablet. 12/14/17 [Rx] Aspirin 325 mg PO DAILY tab 12/19/17 [Rx] Thiamine [Vitamin B-1] 100 mg PO BID@1200,1700 tab 12/19/17 [Rx] LORazepam [Ativan] 1 mg PO TID PRN #20 tab 12/23/17 [Rx] Isosorbide Mononitrate ER [Imdur] 30 mg PO DAILY #1 tab 12/25/17 [Rx] Folic Acid 1 mg PO DAILY@1200 01/06/18 [History] Methadone [Dolophine] 20 mg PO Q12H 01/06/18 [History] Multivitamins, Thera [Multivitamin (formulary)] 1 tab PO DAILY@1200 01/06/18 [ History] Amoxicillin/Potassium Clav [Augmentin 875-125 Tablet] 1 tab PO Q12HR #20 tab 11/29 [Rx] methylPREDNISolone [Medrol Dose Pack] 4 mg PO DIRECTED #1 pack 01/11/18 [Rx] Follow up Appointment(s)/Referral(s): [facility], [NON-STAFF] - As Needed Maximiliano Farrell MD [STAFF PHYSICIAN] - 01/18/18 3:00 pm (Thursday) Patient Instructions/Handouts: Pneumonia (DC)
[2018-01-11 16:30] VITALS: PULSE 98
--- NOTE | 2018-01-11 17:34 | P.PN ---
Subjective Progress Note Date: 01/10/18 (Late entry note) Principal diagnosis: Left perihilar pneumonia, altered mental status encephalopathy related to alcohol intoxication, lactic acidosis, non-ST segment elevated NC, electrolyte imbalance with severe hyperkalemia, alcoholism and dependence on methadone and chronic pain issues 01/10/2018, patient seen and evaluated examined during the rounds he is awake and alert breathing comfortably still left cough congestion patient remains on breathing treatments steroids and antibiotics clinically doing slightly better 62-year-old male with past history of pulmonary sarcoidosis, COPD and hypertension. Patient was reluctant to give a detailed history but later on was able to describe in detail and described his ongoing problem with alcohol and intoxication with that, Patient was found initially unresponsive at home by his neighbor. The patient was here in the hospital up until December 27 where he was discharged to [facility], he spent a week or so there and then just got discharged home spent 2 days home and returned back to the hospital. He reports that his house had no heat. He admits to drinking a pint of liquor, but denies overdosing on methadone however he admits to taking the prescribed dose of 20 mg in the morning and 20 mg at night. He does not remember any details of foot happened but he reported that he lost his dog while he was at [facility] that made him very sad He denies any fevers or chills he reports chronic coughing at times with pleuritic chest pain otherwise denies any nausea or vomiting, shortness of breath, abdominal pain, changes in his urination or bowel movement. He is very sleepy but easily arousable however will drift back to sleep if not in the emergency department patient was found to have mild elevation of lactic acid is suspected to have aspiration pneumonia he responded to couple doses of naloxone and started regaining consciousness Objective - Vital Signs Vital signs: Vital Signs Temp 96.6 F L 01/11/18 08:00 Pulse 98 01/11/18 16:30 Resp 16 01/11/18 14:50 BP 126/85 01/11/18 12:00 Pulse Ox 92 L 01/11/18 12:00 Intake & Output 01/10/18 01/11/18 01/11/18 18:59 06:59 18:59 Intake Total 272 340 630 Output Total 600 650 352 Balance -328 -310 278 Weight 84.8 kg Intake: IV 100 Piperacillin-Tazobactam 3 100 .375 gm In Dextrose/Water 1 50ml.bag @ 12.5 mls/hr IVPB Q8HR [facility] Rx#: [id number] Intake, IV Titration 50 50 Amount Piperacillin-Tazobactam 3 50 50 .375 gm In Dextrose/Water 1 50ml.bag @ 12.5 mls/hr IVPB Q8HR [facility] Rx#: [id number] Oral 222 240 580 Output: Urine 600 650 350 Stool 2 Other: Voiding Method Urinal Urinal Urinal # Voids 1 # Bowel Movements 1 - Exam - Constitutional General appearance: average body habitus, cooperative, disheveled, mild distress - EENT Eyes: anicteric sclerae, EOMI, PERRLA, normal appearance ENT: normal oropharynx Ears: bilateral: normal - Neck Neck: normal ROM Carotids: bilateral: upstroke normal, bruit absent Thyroid: bilateral: normal size - Respiratory Respiratory: bilateral: CTA, negative: diminished, dullness, rales, rhonchi, wheezing, prolonged expiration, prolonged inspiration - Cardiovascular Heart sounds: normal: S1, S2 - Gastrointestinal General gastrointestinal: decreased bowel sounds - Neurologic Neurologic: CNII-XII intact - Musculoskeletal Musculoskeletal: gait normal, generalized weakness, strength equal bilaterally - Psychiatric Psychiatric: A&O x's 3, appropriate affect, intact judgment & insight - Labs CBC & Chem 7: 01/08/18 10:09 01/08/18 10:09 Labs: Microbiology - Last 24 Hours (Table) 01/07/18 03:32 Blood Culture - Preliminary Blood No Growth after 96 hours 01/07/18 00:56 Blood Culture - Preliminary Blood No Growth after 96 hours Assessment and Plan Assessment: Left perihilar pneumonia on broad-spectrum antibiotics may very well be aspiration related Altered mental status encephalopathy likely related to alcohol however associated methadone intoxication cannot be excluded patient's mental status has significantly improved Lactic acidosis significantly improved Non-ST segment elevated NC Electrolyte imbalance with hyperkalemia, resolving improved significantly Alcoholism and dependence on methadone patient has been following chronic pain management and services Plan: Continue antibiotic supportive care Continue gentle hydration Monitor clinical course closely continue antibiotic supportive care patient will likely require placement of extended care facility O2 to maintain saturation greater than or equal to 90% next and bronchodilators Symbicort Aspiration precautions Antibiotics per ID Abstinence from alcohol and other sedative medications Monitor labs Multivitamin, thiamine, folate Prednisone taper Continue supportive care Mental status appears to be at baseline Time with Patient: Greater than 30
--- NOTE | 2018-01-11 17:35 | P.PN ---
Subjective Progress Note Date: 01/11/18 Principal diagnosis: Left perihilar pneumonia, altered mental status encephalopathy related to alcohol intoxication, lactic acidosis, non-ST segment elevated CT, electrolyte imbalance with severe hyperkalemia, alcoholism and dependence on methadone and chronic pain issues 01/11/2018, overall mental status is significantly improved patient is breathing more comfortably patient is being planned for discharge later on today to extended care facility patient has been consult about smoking cessation as well as alcohol avoidance 01/10/2018, patient seen and evaluated examined during the rounds he is awake and alert breathing comfortably still left cough congestion patient remains on breathing treatments steroids and antibiotics clinically doing slightly better 62-year-old male with past history of pulmonary sarcoidosis, COPD and hypertension. Patient was reluctant to give a detailed history but later on was able to describe in detail and described his ongoing problem with alcohol and intoxication with that, Patient was found initially unresponsive at home by his neighbor. The patient was here in the hospital up until December 27 where he was discharged to [facility], he spent a week or so there and then just got discharged home spent 2 days home and returned back to the hospital. He reports that his house had no heat. He admits to drinking a pint of liquor, but denies overdosing on methadone however he admits to taking the prescribed dose of 20 mg in the morning and 20 mg at night. He does not remember any details of foot happened but he reported that he lost his dog while he was at [facility] that made him very sad He denies any fevers or chills he reports chronic coughing at times with pleuritic chest pain otherwise denies any nausea or vomiting, shortness of breath, abdominal pain, changes in his urination or bowel movement. He is very sleepy but easily arousable however will drift back to sleep if not in the emergency department patient was found to have mild elevation of lactic acid is suspected to have aspiration pneumonia he responded to couple doses of naloxone and started regaining consciousness Objective - Vital Signs Vital signs: Vital Signs Temp 96.6 F L 01/11/18 08:00 Pulse 98 01/11/18 16:30 Resp 16 01/11/18 14:50 BP 126/85 01/11/18 12:00 Pulse Ox 92 L 01/11/18 12:00 Intake & Output 01/10/18 01/11/18 01/11/18 18:59 06:59 18:59 Intake Total 272 340 630 Output Total 600 650 352 Balance -328 -310 278 Weight 84.8 kg Intake: IV 100 Piperacillin-Tazobactam 3 100 .375 gm In Dextrose/Water 1 50ml.bag @ 12.5 mls/hr IVPB Q8HR [facility] Rx#: [id number] Intake, IV Titration 50 50 Amount Piperacillin-Tazobactam 3 50 50 .375 gm In Dextrose/Water 1 50ml.bag @ 12.5 mls/hr IVPB Q8HR [facility] Rx#: [id number] Oral 222 240 580 Output: Urine 600 650 350 Stool 2 Other: Voiding Method Urinal Urinal Urinal # Voids 1 # Bowel Movements 1 - Exam - Constitutional General appearance: average body habitus, cooperative, disheveled, mild distress - EENT Eyes: anicteric sclerae, EOMI, PERRLA, normal appearance ENT: normal oropharynx Ears: bilateral: normal - Neck Neck: normal ROM Carotids: bilateral: upstroke normal, bruit absent Thyroid: bilateral: normal size - Respiratory Respiratory: bilateral: CTA, negative: diminished, dullness, rales, rhonchi, wheezing, prolonged expiration, prolonged inspiration - Cardiovascular Heart sounds: normal: S1, S2 - Gastrointestinal General gastrointestinal: decreased bowel sounds - Neurologic Neurologic: CNII-XII intact - Musculoskeletal Musculoskeletal: gait normal, generalized weakness, strength equal bilaterally - Psychiatric Psychiatric: A&O x's 3, appropriate affect, intact judgment & insight - Labs CBC & Chem 7: 01/08/18 10:09 01/08/18 10:09 Labs: Microbiology - Last 24 Hours (Table) 01/07/18 03:32 Blood Culture - Preliminary Blood No Growth after 96 hours 01/07/18 00:56 Blood Culture - Preliminary Blood No Growth after 96 hours Assessment and Plan Assessment: Left perihilar pneumonia on broad-spectrum antibiotics may very well be aspiration related Altered mental status encephalopathy likely related to alcohol however associated methadone intoxication cannot be excluded patient's mental status has significantly improved Lactic acidosis significantly improved Non-ST segment elevated CT Electrolyte imbalance with hyperkalemia, resolving improved significantly Alcoholism and dependence on methadone patient has been following chronic pain management and services Plan: Continue antibiotic supportive care Continue gentle hydration Monitor clinical course closely continue antibiotic supportive care patient will likely require placement of extended care facility O2 to maintain saturation greater than or equal to 90% next and bronchodilators Symbicort Aspiration precautions Antibiotics per ID Abstinence from alcohol and other sedative medications Monitor labs Multivitamin, thiamine, folate Prednisone taper Continue supportive care Mental status appears to be at baseline Time with Patient: Greater than 30
== END 2018-01-11 16:58 | disposition home health service (06) | DRG 917 ==
LOC: EC 14:36 → 6SEL 19:49
PROVIDERS: ADMIT Internal Medicine; ATTEND Internal Medicine
DX: T40.3X1A Poisoning by methadone, accidental (unintentional), initial encounter (principal); G92 Toxic encephalopathy; J69.0 Pneumonitis due to inhalation of food and vomit; A41.9 Sepsis, unspecified organism; E46 Unspecified protein-calorie malnutrition; I50.32 Chronic diastolic (congestive) heart failure; E87.2 Acidosis; I24.8 Other forms of acute ischemic heart disease; J44.1 Chronic obstructive pulmonary disease with (acute) exacerbation; I11.0 Hypertensive heart disease with heart failure; B18.2 Chronic viral hepatitis C; D53.9 Nutritional anemia, unspecified; D86.9 Sarcoidosis, unspecified; E86.0 Dehydration; E87.5 Hyperkalemia; F10.229 Alcohol dependence with intoxication, unspecified; F11.90 Opioid use, unspecified, uncomplicated; F41.9 Anxiety disorder, unspecified; G89.29 Other chronic pain; R09.02 Hypoxemia; Z79.51 Long term (current) use of inhaled steroids; Z79.82 Long term (current) use of aspirin; Z79.891 Long term (current) use of opiate analgesic; Z80.8 Family history of malignant neoplasm of other organs or systems; Z82.49 Family history of ischemic heart disease and other diseases of the circulatory system; Z86.14 Personal history of Methicillin resistant Staphylococcus aureus infection; Z87.891 Personal history of nicotine dependence; Z91.09 Other allergy status, other than to drugs and biological substances
CPT/HCPCS: 36415; 70450; 71045; 71046; 76705; 80053; 80202; 80306; 80320; 81003; 82075; 82105; 82550; 82553; 83520; 83605; 83735; 84484; 85025; 87040; 87070; 87205; 93005; 93306; 94640; 94760; 96361; 96365; 96366; 96375; 99285

== ENCOUNTER 2018-02-05 16:36 | Inpatient (IN) | payer MEDICAID, OTHER ==
--- NOTE | 2018-02-05 17:01 | ED ---
General Adult HPI - General Chief complaint: Overdose Stated complaint: Overdose Time Seen by Provider: 02/05/18 16:52 Source: patient, EMS, RN notes reviewed Mode of arrival: EMS Limitations: no limitations - History of Present Illness Initial comments: Patient is a pleasant 62-year-old male presenting to the emergency Department with depression. Patient states he is depressed because his dog . Patient has thoughts of self-harm. Patient has a history of drinking however does not drink much recently. Patient did drink today. Patient also took around 30 of his old Xanax pills. Patient states he took this throughout the day. No homicidal thoughts. No street drug use. No hallucinations. No physical complaints. - Related Data Home Medications Medication Instructions Recorded Confirmed Folic Acid 1 mg PO DAILY@1200 01/06/18 02/05/18 Methadone [Dolophine] 20 mg PO Q12H 01/06/18 02/05/18 Multivitamins, Thera [Multivitamin 1 tab PO DAILY@1200 01/06/18 02/05/18 (formulary)] Ibuprofen [Advil] 200 mg PO Q8HR PRN 02/05/18 02/05/18 Previous Rx's Medication Instructions Recorded Budesonide-Formot 160-4.5 Mcg 2 puff INHALATION RT-BID #1 inhaler 08/08/17 [Symbicort 160-4.5 Mcg Inhaler] Ipratropium-Albuterol Nebulize 3 ml INHALATION RT-QID #300 12/14/17 [Duoneb 0.5 mg-3 mg/3 ml Soln] ampul.neb Pantoprazole [Protonix] 40 mg PO AC-BRKFST tablet. 12/14/17 Aspirin 325 mg PO DAILY tab 12/19/17 Thiamine [Vitamin B-1] 100 mg PO BID@1200,1700 tab 12/19/17 LORazepam [Ativan] 1 mg PO TID PRN #20 tab 12/23/17 Isosorbide Mononitrate ER [Imdur] 30 mg PO DAILY #1 tab 12/25/17 Allergies Allergy/AdvReac Type Severity Reaction Status Date / Time [place] Feces Allergy Dyspnea Uncoded 02/05/18 16:58 Review of Systems ROS Statement: Those systems with pertinent positive or pertinent negative responses have been documented in the HPI. ROS Other: All systems not noted in ROS Statement are negative. Constitutional: Denies: fever Eyes: Denies: eye pain ENT: Denies: ear pain Respiratory: Denies: cough Cardiovascular: Denies: chest pain Endocrine: Denies: fatigue Gastrointestinal: Denies: abdominal pain Genitourinary: Denies: dysuria Musculoskeletal: Denies: back pain Skin: Denies: rash Neurological: Denies: weakness Psychiatric: Reports: depression, suicidal thoughts. 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 states his lung Past Surgical History: Orthopedic Surgery Additional Past Surgical History / Comment(s): neck fracture, Past Anesthesia/Blood Transfusion Reactions: No Reported Reaction Past Psychological History: Anxiety Smoking Status: Former smoker Past Alcohol Use History: Occasional Past Drug Use History: None Reported - Past Family History Father Family Medical History: Congestive Heart Failure (CHF), Coronary Artery Disease (CAD), Hypertension Mother Family Medical History: Cancer, Hypertension Additional Family Medical History / Comment(s): Melanoma on nose. General Exam Limitations: no limitations General appearance: alert, in no apparent distress Head exam: Present: atraumatic Eye exam: Present: normal appearance, PERRL. Absent: nystagmus Neck exam: Present: normal inspection Respiratory exam: Present: normal lung sounds bilaterally Cardiovascular Exam: Present: regular rate, normal rhythm GI/Abdominal exam: Present: soft. Absent: tenderness Extremities exam: Present: normal inspection. Absent: pedal edema, calf tenderness Neurological exam: Present: alert. Absent: motor sensory deficit Psychiatric exam: Present: depressed Skin exam: Present: normal color Course Vital Signs 02/05/18 16:51 Pulse Rate 113 H Respiratory 20 Rate Blood Pressure 135/78 O2 Sat by Pulse 97 Oximetry - Reevaluation(s) Reevaluation #1: 02/05/18 18:56 Patient was seen by mental health services, who will admit. They do want blood work Done prior to that however. Medical Decision Making - Lab Data Result diagrams: 02/05/18 19:20 02/05/18 19:20 Lab Results 02/05/18 02/05/18 02/05/18 Range/Units 18:30 19:20 19:20 WBC 8.1 (3.8-10.6) k/uL RBC 4.48 (4.30-5.90) m/uL Hgb 15.8 D (13.0-17.5) gm/dL Hct 48.1 (39.0-53.0) % MCV 107.3 H (80.0-100.0) fL MCH 35.3 H (25.0-35.0) pg MCHC 32.9 (31.0-37.0) g/dL RDW 14.0 (11.5-15.5) % Plt Count 188 (150-450) k/uL Neutrophils % 39 % Lymphocytes % 43 % Monocytes % 5 % Eosinophils % 11 % Basophils % 1 % Neutrophils # 3.2 (1.3-7.7) k/uL Lymphocytes # 3.5 (1.0-4.8) k/uL Monocytes # 0.4 (0-1.0) k/uL Eosinophils # 0.9 H (0-0.7) k/uL Basophils # 0.1 (0-0.2) k/uL Macrocytosis Moderate Sodium 142 (137-145) mmol/L Potassium 3.9 (3.5-5.1) mmol/L Chloride 105 (98-107) mmol/L Carbon Dioxide 20 L (22-30) mmol/L Anion Gap 17 mmol/L BUN 10 (9-20) mg/dL Creatinine 0.70 (0.66-1.25) mg/dL Est GFR (CKD-EPI)AfAm >90 (>60 ml/min/1.73 sqM) Est GFR (CKD-EPI)NonAf >90 (>60 ml/min/1.73 sqM) Glucose 130 H (74-99) mg/dL Calcium 9.4 (8.4-10.2) mg/dL Total Bilirubin 0.8 (0.2-1.3) mg/dL AST 576 H (17-59) U/L ALT 441 H (21-72) U/L Alkaline Phosphatase 147 H (38-126) U/L Total Protein 6.0 L (6.3-8.2) g/dL Albumin 3.2 L (3.5-5.0) g/dL Urine Opiates Screen Not Detected (NotDetected) Ur Oxycodone Screen Not Detected (NotDetected) Urine Methadone Screen Detected H (NotDetected) Ur Propoxyphene Screen Not Detected (NotDetected) Ur Barbiturates Screen Not Detected (NotDetected) U Tricyclic Antidepress Not Detected (NotDetected) Ur Phencyclidine Scrn Not Detected (NotDetected) Ur Amphetamines Screen Not Detected (NotDetected) U Methamphetamines Scrn Not Detected (NotDetected) U Benzodiazepines Scrn Not Detected (NotDetected) Urine Cocaine Screen Not Detected (NotDetected) U Marijuana (THC) Screen Not Detected (NotDetected) - Radiology Data Radiology results: image reviewed (Chest x-ray shows minimal infiltrates/ atelectasis left base. Significant improvement in aeration.) Disposition Clinical Impression: Depression, Suicidal ideation Disposition: TRANSFER TO PSYCH HOSP/UNIT Referrals: Nonstaff,Physician [REFERRING] - 1-2 days Decision Time: 18:57
[2018-02-05 19:16] LABS: Amphetamine Screen,Urine Not Detected (NotDetected); Barbiturate Screen,Urine Not Detected (NotDetected); Benzodiazepines Screen,Urine Not Detected (NotDetected); Cocaine Screen,Urine Not Detected (NotDetected); Methadone Screen, Urine Detected (NotDetected); Opiate Screen,Urine Not Detected (NotDetected); Oxycodone Screen, Urine Not Detected (NotDetected); Phencyclidine Screen,Urine Not Detected (NotDetected); Tricyclic Antidepressant,Urine Not Detected (NotDetected); Urn Cannabinoid Scrn Not Detected (NotDetected)
[2018-02-05 19:32] LABS: Basophils # (A) 0.1 k/uL (0-0.2); Basophils % (A) 1 %; Eosinophils # (A) 0.9 k/uL (0-0.7); Eosinophils % (A) 11 %; HCT 48.1 % (39.0-53.0); Lymphocytes # (A) 3.5 k/uL (1.0-4.8); Lymphocytes % (A) 43 %; MCH 35.3 pg (25.0-35.0); MCHC 32.9 g/dL (31.0-37.0); MCV 107.3 fL (80.0-100.0); Macrocytosis Moderate; Mean Platelet Volume 8.2; Monocytes # (A) 0.4 k/uL (0-1.0); Monocytes % (A) 5 %; Neutrophils # (A) 3.2 k/uL (1.3-7.7); Neutrophils % (A) 39 %; Platelet Count 188 k/uL (150-450); RBC 4.48 m/uL (4.30-5.90); WBC 8.1 k/uL (3.8-10.6)
[2018-02-05 19:34] LABS: HGB 15.8 gm/dL (13.0-17.5)
[2018-02-05 19:40] LABS: ALT 441 U/L (21-72); AST 576 U/L (17-59); Albumin 3.2 g/dL (3.5-5.0); Alkaline Phosphatase 147 U/L (38-126); Anion Gap 17 mmol/L; Blood Urea Nitrogen 10 mg/dL (9-20); Calcium 9.4 mg/dL (8.4-10.2); Carbon Dioxide 20 mmol/L (22-30); Chloride 105 mmol/L (98-107); Glucose 130 mg/dL (74-99); Potassium 3.9 mmol/L (3.5-5.1); Sodium 142 mmol/L (137-145); Total Bilirubin 0.8 mg/dL (0.2-1.3)
--- NOTE | 2018-02-05 19:52 | XR ---
EXAMINATION TYPE: XR chest 2V DATE OF EXAM: 02/05/2018 COMPARISON: 01/07/2018 HISTORY: Sepsis TECHNIQUE: Frontal and lateral views of the chest are obtained. FINDINGS: Heart and mediastinum are normal. There is small linear density in the left lower lobe. Th ere are old right-sided rib fractures. Costophrenic angles are clear. Bony thorax is otherwise intact . IMPRESSION: Minimal linear infiltrate and atelectasis in the left lower lobe. There is significant i mproved aeration of the lung bases compared to last exam. There is improved inspiration. No heart anette lure. There is clearing of the mild pulmonary congestion.
[2018-02-05] MEDS ORDERED: ACETAMINOPHEN TAB 325 MG TAB PO PRN (20:44)
[2018-02-05] MEDS ORDERED: MAGNESIUM HYDROXIDE 2,400 MG/10 ML CUP PO PRN (20:44)
[2018-02-05] MEDS ORDERED: LORazepam 2 MG/ML INJ IM PRN (20:49)
[2018-02-05 22:58] VITALS: BMI 27.2
--- NOTE | 2018-02-06 07:25 | P.CNPUL ---
History of Present Illness Consult date: 02/06/18 Reason for consult: dyspnea, cough, asthma, COPD Chief complaint: Chronic shortness of breath, major depression and chronic pain syndrome History of present illness: Mr. Craig is a 62-year-old male well-known to me for prior history of pulmonary sarcoidosis and severe COPD emphysema depression and patient has a component of chronic persistent asthma and asthmatic bronchitis which has been stable with the breathing treatments and nebulizer therapy. 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 he developed significant depression in the last few days the after the of his dog he has been admitted into hospital for psychiatric evaluation and therapy overall denies any [place] respiratory complaints Review of Systems All systems: negative Past Medical History Past Medical History: Asthma, Chest Pain / Angina, Heart Failure, COPD, Hypertension, Liver Disease, Pneumonia Additional Past Medical History / Comment(s): COPD, recent hospitalization with fall and a small right-sided pneumothorax, traumatic seventh through ninth nondisplaced rib fractures, alcoholism, previous history of delirium tremens, liver 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 states his lung Past Surgical History: Orthopedic Surgery Additional Past Surgical History / Comment(s): neck fracture, Past Anesthesia/Blood Transfusion Reactions: No Reported Reaction Smoking Status: Former smoker - Past Family History Father Family Medical History: Congestive Heart Failure (CHF), Coronary Artery Disease (CAD), Hypertension Mother Family Medical History: Cancer, Hypertension Additional Family Medical History / Comment(s): Melanoma on nose. Medications and Allergies Home Medications Medication Instructions Recorded Confirmed Type Budesonide-Formot 160-4.5 Mcg 2 puff INHALATION RT-BID #1 inhaler 08/08/1702/05 Rx [Symbicort 160-4.5 Mcg Inhaler] Ipratropium-Albuterol Nebulize 3 ml INHALATION RT-QID #300 12/14/17 02/05/18 Rx [Duoneb 0.5 mg-3 mg/3 ml Soln] ampul.neb Pantoprazole [Protonix] 40 mg PO AC-BRKFST tablet. 12/14/17 02/05/18 Rx Aspirin 325 mg PO DAILY tab 12/19/17 02/05/18 Rx Thiamine [Vitamin B-1] 100 mg PO BID@1200,1700 tab 12/19/17 02/05/18 Rx LORazepam [Ativan] 1 mg PO TID PRN #20 tab 12/23/17 02/05/18 Rx Isosorbide Mononitrate ER [Imdur] 30 mg PO DAILY #1 tab 12/25/17 02/05/18 Rx Folic Acid 1 mg PO DAILY@1200 01/06/18 02/05/18 History Methadone [Dolophine] 20 mg PO Q12H 01/06/18 02/05/18 History Multivitamins, Thera [Multivitamin 1 tab PO DAILY@1200 01/06/18 02/05/18 History (formulary)] Ibuprofen [Advil] 200 mg PO Q8HR PRN 02/05/18 02/05/18 History Allergies Allergy/AdvReac Type Severity Reaction Status Date / Time [place] Feces Allergy Dyspnea Uncoded 02/05/18 22:59 Physical Exam Vitals: Vital Signs Temp Pulse Pulse Resp BP BP Pulse Ox 02/06/18 07:02 97.4 F L 95 16 136/91 02/05/18 22:30 97.6 F 118 H 17 122/87 02/05/18 16:51 113 H 20 135/78 97 Intake and Output 02/05/18 02/06/18 02/06/18 22:59 06:59 14:59 Other: Weight 86.2 kg 86.2 kg Limitations: no limitations General appearance: alert, in no apparent distress Head exam: Present: atraumatic Eye exam: Present: normal appearance, PERRL. Absent: nystagmus Neck exam: Present: normal inspection Respiratory exam: Present: normal lung sounds bilaterally Cardiovascular Exam: Present: regular rate, normal rhythm GI/Abdominal exam: Present: soft. Absent: tenderness Extremities exam: Present: normal inspection. Absent: pedal edema, calf tenderness Neurological exam: Present: alert. Absent: motor sensory deficit Psychiatric exam: Present: depressed Skin exam: Present: normal color Results - Laboratory Findings CBC and BMP: 02/05/18 19:20 02/05/18 19:20 Abnormal lab findings: Abnormal Labs 02/05/18 02/05/18 02/05/18 18:30 19:20 19:20 MCV 107.3 H MCH 35.3 H Eosinophils # 0.9 H Carbon Dioxide 20 L Glucose 130 H AST 576 H ALT 441 H Alkaline Phosphatase 147 H Total Protein 6.0 L Albumin 3.2 L Urine Methadone Screen Detected H - Diagnostic Findings Chest x-ray: report reviewed, image reviewed (Left subsegmental atelectasis overall improved compared to prior exam) Assessment and Plan Assessment: Major depression Chronic alcoholism Severe COPD and chronic asthmatic bronchitis Chronic pain syndrome Alcoholic liver disease Protein calorie malnourishment Plan: Agree with psychiatric evaluation and therapy and supportive care 4 respiratory patient can be started on Symbicort 160/4.5, 2 puff 2 times a day and rinse mouth after each use and DuoNeb unit dose updrafts 304 times a day as needed Monitor observe liver enzymes closely repeat the CMP after 48-72 hours Continue supportive care follow clinical course closely Time with Patient: Greater than 30
[2018-02-06] MEDS: PANTOPRAZOLE 40 MG TABLET PO SCH ×2 (08:07→17:40)
[2018-02-06] MEDS: ASPIRIN 325 MG TAB PO SCH ×2 (08:07→17:43)
[2018-02-06] MEDS: ISOSORBIDE MONONITRATE ER 30 MG TAB.ER.24H PO SCH ×2 (08:07→17:42)
[2018-02-06] MEDS: IPRATROPIUM-ALBUTEROL 3 ML NEB INHALATION SCH ×4 (08:08→19:42)
[2018-02-06] MEDS: SYMBICORT 160-4.5 MCG INHALER INHALATION SCH ×2 (08:08→19:42)
--- NOTE | 2018-02-06 09:39 | P.HP ---
Psychiatric H&P - . H&P Date: 02/06/18 History & Physical: Allergies Allergy/AdvReac Type Severity Reaction Status Date / Time [place] Feces Allergy Dyspnea Uncoded 02/05/18 22:59 Vital Signs Temp 97.4 F L 02/06/18 07:02 Pulse 112 H 02/06/18 08:25 Resp 22 02/06/18 08:25 BP 129/80 02/06/18 08:25 Pulse Ox 97 02/05/18 16:51 Intake & Output 02/05/18 02/06/18 02/06/18 18:59 06:59 18:59 Weight 84.822 kg 86.2 kg Laboratory Last Values WBC 8.1 k/uL (3.8-10.6) 02/05/18 19:20 RBC 4.48 m/uL (4.30-5.90) 02/05/18 19:20 Hgb 15.8 gm/dL (13.0-17.5) D 02/05/18 19:20 Hct 48.1 % (39.0-53.0) 02/05/18 19:20 MCV 107.3 fL (80.0-100.0) H 02/05/18 19:20 MCH 35.3 pg (25.0-35.0) H 02/05/18 19:20 MCHC 32.9 g/dL (31.0-37.0) 02/05/18 19:20 RDW 14.0 % (11.5-15.5) 02/05/18 19:20 Plt Count 188 k/uL (150-450) 02/05/18 19:20 Neutrophils % 39 % 02/05/18 19:20 Lymphocytes % 43 % 02/05/18 19:20 Monocytes % 5 % 02/05/18 19:20 Eosinophils % 11 % 02/05/18 19:20 Basophils % 1 % 02/05/18 19:20 Neutrophils # 3.2 k/uL (1.3-7.7) 02/05/18 19:20 Lymphocytes # 3.5 k/uL (1.0-4.8) 02/05/18 19:20 Monocytes # 0.4 k/uL (0-1.0) 02/05/18 19:20 Eosinophils # 0.9 k/uL (0-0.7) H 02/05/18 19:20 Basophils # 0.1 k/uL (0-0.2) 02/05/18 19:20 Macrocytosis Moderate 02/05/18 19:20 Sodium 142 mmol/L (137-145) 02/05/18 19:20 Potassium 3.9 mmol/L (3.5-5.1) 02/05/18 19:20 Chloride 105 mmol/L (98-107) 02/05/18 19:20 Carbon Dioxide 20 mmol/L (22-30) L 02/05/18 19:20 Anion Gap 17 mmol/L 02/05/18 19:20 BUN 10 mg/dL (9-20) 02/05/18 19:20 Creatinine 0.70 mg/dL (0.66-1.25) 02/05/18 19:20 Est GFR (CKD-EPI)AfAm >90 (>60 ml/min/1.73 sqM) 02/05/18 19:20 Est GFR (CKD-EPI)NonAf >90 (>60 ml/min/1.73 sqM) 02/05/18 19:20 Glucose 130 mg/dL (74-99) H 02/05/18 19:20 Calcium 9.4 mg/dL (8.4-10.2) 02/05/18 19:20 Total Bilirubin 0.8 mg/dL (0.2-1.3) 02/05/18 19:20 AST 576 U/L (17-59) H 02/05/18 19:20 ALT 441 U/L (21-72) H 02/05/18 19:20 Alkaline Phosphatase 147 U/L (38-126) H 02/05/18 19:20 Total Protein 6.0 g/dL (6.3-8.2) L 02/05/18 19:20 Albumin 3.2 g/dL (3.5-5.0) L 02/05/18 19:20 TSH 2.400 mIU/L (0.465-4.680) 02/05/18 19:20 Urine Opiates Screen Not Detected (NotDetected) 02/05/18 18:30 Ur Oxycodone Screen Not Detected (NotDetected) 02/05/18 18:30 Urine Methadone Screen Detected (NotDetected) H 02/05/18 18:30 Ur Propoxyphene Screen Not Detected (NotDetected) 02/05/18 18:30 Ur Barbiturates Screen Not Detected (NotDetected) 02/05/18 18:30 U Tricyclic Antidepress Not Detected (NotDetected) 02/05/18 18:30 Ur Phencyclidine Scrn Not Detected (NotDetected) 02/05/18 18:30 Ur Amphetamines Screen Not Detected (NotDetected) 02/05/18 18:30 U Methamphetamines Scrn Not Detected (NotDetected) 02/05/18 18:30 U Benzodiazepines Scrn Not Detected (NotDetected) 02/05/18 18:30 Urine Cocaine Screen Not Detected (NotDetected) 02/05/18 18:30 U Marijuana (THC) Screen Not Detected (NotDetected) 02/05/18 18:30 02/06/18 09:49 Chief complaint I was drinking and taking too much of xanax. History of presenting illness He reports drinking alcohol and taking xanax is not helping him with his pain. He claims he does not like the taste of alcohol. He reports he is not planning on taking xanax any more as it does nothing for pain. He reports to have consumed fifth of liqour yesterday morning and claims to have taken unknown amout of xanax piils yesterday. I am having too much pain all over my body. I want something for my pain. I don t sleep well. I toss and turn due to pain. I broke my neck, injured my joints years ago and since then I have been having pain problems. He reports taking methadone 20mg po twice a day. He reports to have ran out of his methadone and also his medicartions for hypertension, COPD. He claims his last dose of methadone was four to five days ago. [facility] He reports his transportaion did not pick him and therefore claims to have missed his appointment with his primary care physician. He does not know the name of the pysician who prescribed methadone for him. He says last time he was at this hospital he claims to have received methadone. He stated he wants his pain to go away. He claims to have feel down in the shower yersteday and claims to have hit his head and tail bone. He did not appear in any distress during the interview. He reports feeling depressed loosing his dog. He reports he had a dog over the past five years and claims his dog on december 09, 2017. He rates his depression as 4/10, one being best and ten being worst. He reports he did not have any appetite due to pain and claims he hasnt been eating well over the past three to four days. He reports he gets meals on wheels. He says his motivation is good. He reports reading books and claims reading books makes him fel better. He stated he is hopeful and looking forward to get his new dog next month. He denies current suicidal or homicidal ideations. He says he is too young to . He states all he wants is something for his pain. He denies current auditory or visual halluciantions. He denies paranoia. He denies mood swings nd racing thoughts. Past psychiatric history Denies past psychiatric treatment history Substance use history Reports to have started experimenting beer and pot during his teen years. He claims ot have stopped using pot and smiking cigarettes 15 years ago due to being diagnosed with lung problems. He reports drinking fifth of liqiour at his heaviest. He stated his last drink was yesterday morning. He reports history of delirium tremens. He claims to have fell down his porch and broke his ribs in april 2017. He claims ot have had DTs during his hospitaization in April 2017. He reports to have received alcohol rehab treatment through [place] 20 years ago. Denies use of other illicit drugs. BAT is .053 Methadone : positive Legal problems None reported Family psychiatric treatment history Reports his mother had dementia. Claims his mother in 2007 due to health related problems Reports his father in 2002 due to CHF related complications. Medical history Asthma, Chest Pain / Angina, Heart Failure, with diastolic dysfunction, COPD, Hypertension, Liver Disease, alcoholism, previous history of delirium tremens, liver disease/alcoholic in nature with abnormal LFTs ,Pneumonia Recent hospitalization with fall and a small right-sided pneumothorax, traumatic seventh through ninth nondisplaced rib fractures. Allergies : NKDA Social history Born and raised in [place], [place]. Reports good childhood and claims his parents were the best parents in the world. No history of abuse. Has three brothers and one sister. He reports to have graduated high school. 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 and has six children. He lives alone in a single family home in [place] [facility] He reports having a gaurdian over the past six to seven months. He claims his public guardian is resubmitting his social security papaerwork. He reports supporting himself with annuty income passed over from his parents. He also reports getting edward assistance and food stamps. Mental status exam 62 year old male. Appeared his stated age, in marginal grooming and hygeine with unkmpt hair and daniels. He is pleasant and co-operative. No abnormal movement s noted. His speech is soft, normal rate and volume. His thought process is I am in pain and I need pain medications, I am not depressed and I want to go home. His mood is reported as depressed and affect constricterd. He denies auditory or visual halluciantions. He denies paranoia. He is alert and oriented X 4. His insight and judgemnt are limited. He deneis current suicidal or homicidal ideations. Diagnosis Adjustment disorder with depressed mood. Alcohol use disorder Depression due to medical reason (Genaralised body pains) Plan 62-year-old male admitted through emergency Department for depression. Patient will have physical examination and psychosocial evaluation. Patient will be monitored for symptoms He refused medications for depression and alcohol use. States I dont have depression and I heard about antabuse my friends take it and I dont want any medications, as it is rosalee taking too many medications I want to go home, all I need is something for pain. . He will receive milieu therapy group therapy individual therapy occupational therapy recreational therapy and psychoeducation. Treatment goals: Improve insight 02/06/18 11:29
[2018-02-06] MEDS: FOLIC ACID 1 MG TAB PO SCH (12:30)
[2018-02-06] MEDS: THIAMINE 100 MG TAB PO SCH ×2 (12:30→17:05)
[2018-02-06] MEDS: MULTIVITAMINS, THERA 1 EACH TAB PO SCH (12:30)
[2018-02-06] MEDS: MAG HYDROX/AL HYDROX/SIMETH 30 ML CUP PO PRN (15:52)
[2018-02-07] MEDS: ASPIRIN 325 MG TAB PO SCH (07:54)
[2018-02-07] MEDS: IBUPROFEN 200 MG TAB PO PRN (07:54)
[2018-02-07] MEDS: ISOSORBIDE MONONITRATE ER 30 MG TAB.ER.24H PO SCH (07:54)
[2018-02-07] MEDS: PANTOPRAZOLE 40 MG TABLET PO SCH (07:54)
[2018-02-07] MEDS: IPRATROPIUM-ALBUTEROL 3 ML NEB INHALATION SCH ×4 (08:17→18:30)
[2018-02-07] MEDS: SYMBICORT 160-4.5 MCG INHALER INHALATION SCH ×2 (08:17→18:29)
[2018-02-07] MEDS: FOLIC ACID 1 MG TAB PO SCH (13:33)
[2018-02-07] MEDS: THIAMINE 100 MG TAB PO SCH ×2 (13:33→16:51)
[2018-02-07] MEDS: MULTIVITAMINS, THERA 1 EACH TAB PO SCH (13:33)
--- NOTE | 2018-02-07 18:55 | P.PN ---
Progress Note - Text Progress Note Date: 02/07/18 Patient was seen today. He stated he had just received his breathing treatment. He does not want any medications for depression. He reports he wants to go home. He currently denies symptoms of depression. 62 year old male. Appeared his stated age. he appeared in fair grooming and hygeine . He is superficially co-operative. No abnormal movement s noted. His speech is soft, normal rate and volume. His thought process is guarded and limited.. His mood is reported as good and affect constricterd. He denies auditory or visual halluciantions. He denies paranoia. He is alert and oriented X 4. His insight and judgemnt are limited. He deneis current suicidal or homicidal ideations. Refuses medications for depression Monitor for safety and encourage participation in treatment.
--- NOTE | 2018-02-07 21:59 | P.PN ---
Subjective Progress Note Date: 02/07/18 Principal diagnosis: Major depression, suicidal ideation thought, chronic persistent asthma, severe COPD, chronic pain syndrome with dependence on methadone, generalized anxiety disorder uses Xanax 02/07/2018, patient seen and evaluated examined clinically patient is slightly more composed I have discussed with the staff to find out the doses of Xanax and methadone as taking before coming into the hospital. 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 Respiratory status is stable patient has been on MDIs tolerating well Mr. Craig is a 62-year-old male well-known to me for prior history of pulmonary sarcoidosis and severe COPD emphysema depression and patient has a component of chronic persistent asthma and asthmatic bronchitis which has been stable with the breathing treatments and nebulizer therapy. 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 he developed significant depression in the last few days the after the of his dog he has been admitted into hospital for psychiatric evaluation and therapy overall denies any [place] respiratory complaints Objective - Vital Signs Vital signs: Vital Signs Temp 97.9 F 02/07/18 06:24 Pulse 78 02/07/18 18:42 Resp 22 02/07/18 08:54 BP 108/63 02/07/18 08:54 Pulse Ox 97 02/05/18 16:51 Intake & Output 02/07/18 02/07/18 02/08/18 06:59 18:59 06:59 Weight 85.9 kg - Exam Limitations: no limitations General appearance: alert, in no apparent distress Head exam: Present: atraumatic Eye exam: Present: normal appearance, PERRL. Absent: nystagmus Neck exam: Present: normal inspection Respiratory exam: Present: normal lung sounds bilaterally Cardiovascular Exam: Present: regular rate, normal rhythm GI/Abdominal exam: Present: soft. Absent: tenderness Extremities exam: Present: normal inspection. Absent: pedal edema, calf tenderness Neurological exam: Present: alert. Absent: motor sensory deficit Psychiatric exam: Present: depressed Skin exam: Present: normal color - Labs CBC & Chem 7: 02/05/18 19:20 02/05/18 19:20 Assessment and Plan Assessment: Major depression Chronic alcoholism Severe COPD and chronic asthmatic bronchitis Chronic pain syndrome Alcoholic liver disease Protein calorie malnourishment Plan: Agree with psychiatric evaluation and therapy and supportive care 4 respiratory patient can be maintained on Symbicort 160/4.5, 2 puff 2 times a day and rinse mouth after each use and DuoNeb unit dose updrafts 304 times a day as needed Monitor observe liver enzymes closely repeat the CMP after 48-72 hours Continue supportive care follow clinical course closely Advised to find out the dose of methadone on outpatient basis along with Xanax as he takes at home
[2018-02-08 06:47] VITALS: RESP 18
[2018-02-08] MEDS: ISOSORBIDE MONONITRATE ER 30 MG TAB.ER.24H PO SCH (08:13)
[2018-02-08] MEDS: MAG HYDROX/AL HYDROX/SIMETH 30 ML CUP PO PRN (08:13)
[2018-02-08] MEDS: PANTOPRAZOLE 40 MG TABLET PO SCH (08:13)
[2018-02-08] MEDS: ASPIRIN 325 MG TAB PO SCH (08:13)
[2018-02-08] MEDS: SYMBICORT 160-4.5 MCG INHALER INHALATION SCH ×2 (10:10→22:18)
[2018-02-08] MEDS: IPRATROPIUM-ALBUTEROL 3 ML NEB INHALATION SCH ×4 (10:10→22:18)
[2018-02-08 12:14] LABS: Albumin 3.1 g/dL (3.5-5.0); Bilirubin, Delta 0.6 mg/dL (0.0-0.2); Total Bilirubin 0.6 mg/dL (0.2-1.3); Total Protein 5.8 g/dL (6.3-8.2)
[2018-02-08] MEDS: THIAMINE 100 MG TAB PO SCH ×2 (13:15→19:00)
[2018-02-08] MEDS: FOLIC ACID 1 MG TAB PO SCH (13:15)
[2018-02-08] MEDS: ESCITALOPRAM 5 MG TAB PO SCH (13:15)
[2018-02-08] MEDS: MULTIVITAMINS, THERA 1 EACH TAB PO SCH (13:15)
[2018-02-08] MEDS: LORazepam 1 MG TAB PO PRN ×2 (13:16→21:32)
[2018-02-08] MEDS: IBUPROFEN 200 MG TAB PO PRN (13:19)
--- NOTE | 2018-02-08 14:50 | P.PN ---
Progress Note - Text Progress Note Date: 02/08/18 Interval History: Patient is a 62-year-old male who was seen today food been refusing antidepressant medication since his admission when he took an overdose of some medication at home with alcohol and states that he wanted to sleep did not want to . Patient states that he is not currently suicidal but did agree that he's been feeling depressed and his dog during his last admission. I saw the patient during his last admission and he was not cooperative during the interview. Patient states that he was at [facility] after his discharge on December 16 for 10 days and then went home. Patient returned to the medical floor on January 06. Patient states that he's been using a half pint to several pints a day 2-3 times a week since he's been released from the hospital. Patient states that he lives alone and is planning on having another puppy soon. Patient states he has Meals on Wheels at home. Patient was agreeable to medication today. Mental Status: Appearance/Attitude: Patient is casually dressed, makes good eye contact and was cooperative Behavior: Patient did not exhibit any psychomotor agitation or retardation. Speech/Language: Patient's speech was spontaneous and normal volume and rhythm and he was coherent Thought Process: Patient was goal-directed there is no evidence of loose association or flight of ideas. Thought Content: Patient denied any auditory or visual hallucinations and no delusions or paranoid ideation were elicited. Patient states that he is not currently feeling suicidal but he is sad about the loss of his dog as he lives alone. Patient states that he just wanted to sleep when he took the Ativan/ Xanax unclear which one at home to help him sleep. Patient states that he was using the methadone but had been spreading it out and not taking it as directed to make it last. Patient states that he is not sleeping well here but his appetite is good. Suicidal/Homicidal Ideation: Patient denies any current suicidal or homicidal ideation. Sensorium/Cognition: Patient is alert and oriented to person, place, and time and his recent and remote memory are grossly intact Mood/Affect: Patient's mood is slightly depressed and his affect is appropriate Insight/Judgment: Patient's insight and judgment are fair Assessment: Patient was agreeable to medication today, he reports that he was trying to sleep at home not take an overdose and states that he took either Xanax or Ativan along with alcohol to help him sleep. Patient states that he drinks about a half pint to several pints 2-3 times a week. I looked on [facility] and the patient last filled methadone 10 mg tablets on January 02 and received #60 , he last filled Ativan 1 mg # 21 on January 02, received # 30 on December 26, patient's last prescription for Xanax 1 mg tablets was filled on October 20 for # 60. Patient states that he had not been taking the Ativan or methadone as prescribed and is unclear to me how he was taking them as his UDS was only positive for methadone. Patient has been attending groups and activities. Patient's liver enzymes are again abnormal as they have been on past admissions. Plan: Patient was agreeable to begin an antidepressant and will begin him on Lexapro 5 mg, I discussed the use and side effects with the patient and begin him on melatonin 2 mg at bedtime to target his sleep. I will not restart methadone the patient is not reporting any pain. Patient will also not be started on standing orders of benzodiazepines but will be monitored for withdrawal symptoms and can be given Ativan for those. Patient complained of diarrhea and Imodium was ordered. I ordered a hepatic function panel to follow his liver enzymes. Patient continues to require hospitalization to further stabilize his mood and medications.
[2018-02-08] MEDS: LOPERAMIDE 2 MG CAP PO PRN (21:32)
[2018-02-08] MEDS: MELATONIN 1 MG TAB PO SCH (22:31)
[2018-02-09] MEDS: ISOSORBIDE MONONITRATE ER 30 MG TAB.ER.24H PO SCH (08:26)
[2018-02-09] MEDS: ESCITALOPRAM 5 MG TAB PO SCH (08:26)
[2018-02-09] MEDS: ASPIRIN 325 MG TAB PO SCH (08:27)
[2018-02-09] MEDS: PANTOPRAZOLE 40 MG TABLET PO SCH (08:27)
[2018-02-09] MEDS: LORazepam 1 MG TAB PO PRN ×2 (08:27→16:46)
[2018-02-09] MEDS: IPRATROPIUM-ALBUTEROL 3 ML NEB INHALATION SCH ×4 (08:53→21:15)
[2018-02-09] MEDS: SYMBICORT 160-4.5 MCG INHALER INHALATION SCH ×2 (08:53→21:15)
[2018-02-09 10:16] LABS: ALT 573 U/L (21-72); Albumin 3.5 g/dL (3.5-5.0); Alkaline Phosphatase 145 U/L (38-126); Anion Gap 14 mmol/L; Blood Urea Nitrogen 15 mg/dL (9-20); Calcium 9.1 mg/dL (8.4-10.2); Carbon Dioxide 20 mmol/L (22-30); Chloride 107 mmol/L (98-107); Glucose 118 mg/dL (74-99); Potassium 4.5 mmol/L (3.5-5.1); Sodium 141 mmol/L (137-145); Total Protein 6.3 g/dL (6.3-8.2)
[2018-02-09 10:28] LABS: AST 796 U/L (17-59)
[2018-02-09] MEDS: THIAMINE 100 MG TAB PO SCH ×2 (13:09→17:46)
[2018-02-09] MEDS: MULTIVITAMINS, THERA 1 EACH TAB PO SCH (13:09)
[2018-02-09] MEDS: FOLIC ACID 1 MG TAB PO SCH (13:09)
--- NOTE | 2018-02-09 13:58 | P.PN ---
Progress Note - Text Progress Note Date: 02/09/18 Interval History: Patient is a 62-year-old male who was seen today and reports that he slept very well last night, he reports no longer feeling suicidal or depressed. He states that he did take the Imodium for diarrhea. Patient states that he is aware that he is positive for hepatitis C he does not recall treatment ever being discussed with him. Patient reports no side effects from the medications. Patient states that he is eager to return home to get his new puppy. Mental Status: Appearance/Attitude: Patient is casually dressed, makes good eye contact and was cooperative. Behavior: Patient does not display any psychomotor agitation or retardation. Speech/Language: Speech is spontaneous and normal volume and rhythm and he is coherent. Thought Process: Patient is goal-directed there is no evidence of loose association or flight of ideas Thought Content: Patient denies any auditory or visual hallucinations and no delusions or paranoid ideation were elicited. Patient states that he slept very well last evening reports his appetite is good. He states that he is not feeling depressed or suicidal at this time and has no side effects from the medication. Patient reports continued diarrhea and has used Imodium. Suicidal/Homicidal Ideation: Patient denies any current suicidal or homicidal ideation Sensorium/Cognition: She was alert and oriented to person, place, and time and his recent and remote memory are grossly intact Mood/Affect: Patient's mood is pleasant and his affect is appropriate Insight/Judgment: Patient's insight and judgment are fair Assessment: Patient reports that he slept well and is not feeling depressed or suicidal. Patient and I discussed his diagnosis of hepatitis C and he is unable to recall if treatment is ever been discussed with him or not. Patient and I discussed his use of alcohol and the need for him to avoid all alcohol in the future secondary to his elevated liver enzymes and his diagnosis of hepatitis C. I also discussed the long-term consequences of alcohol use on his cognitive functioning. Patient reports no side effects from the medications. A repeat CMP continues to reveal elevated liver enzymes Plan: Patient continue on Lexapro 5 mg daily and melatonin 2 mg at bedtime, patient and I discussed discharge tomorrow and he was agreeable with this and his guardian was also contacted and was agreeable with the plan stating that the patient can return to his home.
[2018-02-09] MEDS: IBUPROFEN 200 MG TAB PO PRN (16:47)
--- NOTE | 2018-02-09 17:23 | P.PN ---
Subjective Progress Note Date: 02/09/18 Principal diagnosis: Major depression, suicidal ideation thought, chronic persistent asthma, severe COPD, chronic pain syndrome with dependence on methadone, generalized anxiety disorder uses Xanax, chronic hepatitis related to multifactorial processes including chronic alcoholism and history of hepatitis C in the past 02/09/2018, patient seen, care plan reviewed with the nursing staff patient has been off of methadone no episodes of relapse or the withdrawal has been noted patient is undergoing treatment for major depression and suicidal ideation and thoughts clinically appears to be responding well no episode of respiratory distress or breathing issues has been noted. Patient has been tolerating reading treatments fairly well. Repeat chemistry reviewed the liver enzyme appears to be rising so as total bilirubin, will consult GI 02/07/2018, patient seen and evaluated examined clinically patient is slightly more composed I have discussed with the staff to find out the doses of Xanax and methadone as taking before coming into the hospital. 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 Respiratory status is stable patient has been on MDIs tolerating well Mr. Craig is a 62-year-old male well-known to me for prior history of pulmonary sarcoidosis and severe COPD emphysema depression and patient has a component of chronic persistent asthma and asthmatic bronchitis which has been stable with the breathing treatments and nebulizer therapy. 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 major depression he developed significant depression in the last few days the after the of his dog he has been admitted into hospital for psychiatric evaluation and therapy overall denies any [place] respiratory complaints Objective - Vital Signs Vital signs: Vital Signs Temp 98.1 F 02/09/18 06:24 Pulse 96 02/09/18 16:47 Resp 18 02/09/18 06:24 BP 130/81 02/09/18 06:24 Pulse Ox 97 02/05/18 16:51 Intake & Output 02/08/18 02/09/18 02/09/18 18:59 06:59 18:59 Weight 86.2 kg - Exam Limitations: no limitations General appearance: alert, in no apparent distress Head exam: Present: atraumatic Eye exam: Present: normal appearance, PERRL. Absent: nystagmus Neck exam: Present: normal inspection Respiratory exam: Present: normal lung sounds bilaterally Cardiovascular Exam: Present: regular rate, normal rhythm GI/Abdominal exam: Present: soft. Absent: tenderness Extremities exam: Present: normal inspection. Absent: pedal edema, calf tenderness Neurological exam: Present: alert. Absent: motor sensory deficit Psychiatric exam: Present: depressed Skin exam: Present: normal color - Labs CBC & Chem 7: 02/05/18 19:20 02/09/18 09:10 Labs: Abnormal Lab Results - Last 24 Hours (Table) 02/09/18 Range/Units 09:10 Carbon Dioxide 20 L (22-30) mmol/L Glucose 118 H (74-99) mg/dL Total Bilirubin 2.0 H (0.2-1.3) mg/dL AST 796 H (17-59) U/L ALT 573 H (21-72) U/L Alkaline Phosphatase 145 H (38-126) U/L Assessment and Plan Assessment: Hepatitis likely multifactorial associated with alcoholism as well as history of hepatitis C in the past Chronic narcotic use and methadone use Major depression Chronic alcoholism Severe COPD and chronic asthmatic bronchitis Chronic pain syndrome Alcoholic liver disease Protein calorie malnourishment Plan: Agree with psychiatric evaluation and therapy and supportive care Continue to observe off of methadone Consult GI for elevated liver enzyme 4 respiratory patient can be maintained on Symbicort 160/4.5, 2 puff 2 times a day and rinse mouth after each use and DuoNeb unit dose updrafts 304 times a day as needed Monitor observe liver enzymes closely repeat another CMP after 48 hours Continue supportive care follow clinical course closely Time with Patient: Greater than 30
[2018-02-09] MEDS: MELATONIN 1 MG TAB PO SCH (23:26)
[2018-02-10 06:37] VITALS: TEMP 99.8
[2018-02-10] MEDS: PANTOPRAZOLE 40 MG TABLET PO SCH (08:10)
[2018-02-10] MEDS: ISOSORBIDE MONONITRATE ER 30 MG TAB.ER.24H PO SCH (08:10)
[2018-02-10] MEDS: ESCITALOPRAM 5 MG TAB PO SCH (08:10)
[2018-02-10] MEDS: ASPIRIN 325 MG TAB PO SCH (08:10)
[2018-02-10] MEDS: LOPERAMIDE 2 MG CAP PO PRN (08:11)
[2018-02-10] MEDS: LORazepam 1 MG TAB PO PRN ×2 (08:11→16:56)
[2018-02-10] MEDS: IPRATROPIUM-ALBUTEROL 3 ML NEB INHALATION SCH ×2 (09:02→13:42)
[2018-02-10] MEDS: SYMBICORT 160-4.5 MCG INHALER INHALATION SCH (09:02)
[2018-02-10] MEDS ORDERED: RX INFO: IV CONTRAST WAS GIVEN 1 EACH MISC MISCELLANE PRN (09:15)
--- NOTE | 2018-02-10 09:32 | P.CONS ---
History of Present Illness - Reason for Consult Consult date: 02/10/18 Elevated liver enzymes hepatitis C Requesting physician: She Muniz - History of Present Illness 62-year-old gentleman assigned a public guardian with a history of alcohol abuse with suspected underlying alcohol liver disease, depression, chronic hepatitis C admitted on 02/05/2018 with depressive symptoms. According to the medical records he overdosed on some sort of medication possible Ativan possible Xanax with alcohol prior to admission. He is still drinking alcohol at home sometimes a pint of liquor 2-3 times weekly. Patient was recently hospitalized in December and evaluated by the GI service in regards to elevated liver enzymes thought to be related to combination of factors including medications superimposed on underlying chronic hepatitis C infection. He was receiving antibiotics at that time for suspected pneumonia. Towards the end of the previous admission patient was noncompliant with additional workup for elevation of liver enzymes and refused blood draws requested discharge. Consult requested for persistent elevation of liver enzymes. Presently denies abdominal pain. T-max 99.8. No documented episodes of hypotension. Denies hematemesis hematochezia melena. Since December total bilirubin 0.4-2.3. AST 39-715. ALT 55-1160. AP 43-162. AFP 01/07/2018 was less than 1.3. Hepatitis A/B nonreactive. Hepatitis C IgG antibody reactive. HCV RNA quantitative measurement detected 1,007,161. Log 6.0. Genotype 1A. Alpha-1 antitrypsin 164. Ammonia 26. Current liver function tests total bilirubin 2.0. AST 796. ALT 573. Alkaline phosphatase 145. Hemoglobin 15.8. MCV 107. Platelet 188. INR not obtained on this admission but was 1.1 on 12/12/2017. Ultrasound abdomen 01/06/2018 no gallstones or dilated ducts no free air. CBD 0.6 cm. Review of Systems Constitutional: Denies fever, chills, sweats, weight gain, or loss. HEENT: Negative for migraines, blurred vision or loss, earaches, drainage, tinnitus, oral mucosal lesions, dysphagia, or odynophagia. Cardiac: Negative for chest pain, arrhythmias, or palpitation. Respiratory: Negative for shortness of breath, hemoptysis, cough, or sputum production. Gastrointestinal: See HPI for pertinent findings. Genitourinary: Negative for hematuria, urgency, frequency, polyuria, dysuria, or penile discharge. Musculoskeletal: Negative for muscle aches, swelling, arthritis, and arthralgias. Neurologic: Negative for stroke or TIA. Endocrine: Negative for thyroid problems. Skin: Negative for rash or itching. Psychiatric: History of depression. Past Medical History Past Medical History: Asthma, Chest Pain / Angina, Heart Failure, COPD, Hypertension, Liver Disease, Pneumonia Additional Past Medical History / Comment(s): COPD, recent hospitalization with fall and a small right-sided pneumothorax, traumatic seventh through ninth nondisplaced rib fractures, alcoholism, previous history of delirium tremens, liver disease/alcoholic in nature with abnormal LFTs, hypertension, CHF with diastolic dysfunction History of Any Multi-Drug Resistant Organisms: MRSA Year Discovered:: 2017 MDRO Source:: pt. states his lung Past Surgical History: Orthopedic Surgery Additional Past Surgical History / Comment(s): neck fracture, Past Anesthesia/Blood Transfusion Reactions: No Reported Reaction Smoking Status: Former smoker - Past Family History Father Family Medical History: Congestive Heart Failure (CHF), Coronary Artery Disease (CAD), Hypertension Mother Family Medical History: Cancer, Hypertension Additional Family Medical History / Comment(s): Melanoma on nose. Medications and Allergies Home Medications Medication Instructions Recorded Confirmed Type Budesonide-Formot 160-4.5 Mcg 2 puff INHALATION RT-BID #1 inhaler 08/08/1702/05 Rx [Symbicort 160-4.5 Mcg Inhaler] Ipratropium-Albuterol Nebulize 3 ml INHALATION RT-QID #300 12/14/17 02/05/18 Rx [Duoneb 0.5 mg-3 mg/3 ml Soln] ampul.neb Pantoprazole [Protonix] 40 mg PO AC-BRKFST tablet. 12/14/17 02/05/18 Rx Aspirin 325 mg PO DAILY tab 12/19/17 02/05/18 Rx Thiamine [Vitamin B-1] 100 mg PO BID@1200,1700 tab 12/19/17 02/05/18 Rx LORazepam [Ativan] 1 mg PO TID PRN #20 tab 12/23/17 02/05/18 Rx Isosorbide Mononitrate ER [Imdur] 30 mg PO DAILY #1 tab 03/16/18 04/27/18 Rx Folic Acid 1 mg PO DAILY@1200 01/06/18 02/05/18 History Methadone [Dolophine] 20 mg PO Q12H 01/06/18 02/05/18 History Multivitamins, Thera [Multivitamin 1 tab PO DAILY@1200 01/06/18 02/05/18 History (formulary)] Ibuprofen [Advil] 200 mg PO Q8HR PRN 02/05/18 02/05/18 History Allergies Allergy/AdvReac Type Severity Reaction Status Date / Time [place] Feces Allergy Dyspnea Uncoded 02/05/18 22:59 Physical Exam Vitals: Vital Signs Temp Pulse Pulse Resp BP 02/10/18 06:36 99.8 F H 108 H 18 140/82 02/09/18 16:47 96 02/09/18 16:40 92 02/09/18 12:24 88 02/09/18 12:15 92 General appearance: The patient is alert, oriented, in no acute distress. HET: Head is normocephalic and atraumatic. Pupils are equal and reactive. Oropharynx is clear without lesions. Neck: Supple without lymphadenopathy. Trachea midline. Heart: S1 S2. Regular rate and rhythm. Lungs: No crackles or wheezes are heard. Abdomen: Soft, nontender, nondistended with bowel sounds. No peritoneal signs. No palpable organomegaly or masses. Extremities: Normal skin color and turgor. No cyanosis, rash, ulceration, clubbing, or edema. Radial and pedal pulses are 2/4 bilaterally. Neurological: No focal deficits. Strength and sensation are grossly intact. Results CBC & Chem 7: 02/05/18 19:20 02/09/18 09:10 Labs: Abnormal Lab Results - Last 24 Hours (Table) 02/09/18 Range/Units 09:10 Carbon Dioxide 20 L (22-30) mmol/L Glucose 118 H (74-99) mg/dL Total Bilirubin 2.0 H (0.2-1.3) mg/dL AST 796 H (17-59) U/L ALT 573 H (21-72) U/L Alkaline Phosphatase 145 H (38-126) U/L Assessment and Plan (1) Elevated liver enzymes Narrative/Plan: Multifactorial possible combination of alcohol hepatitis, chronic hepatitis C, possible medication related. Patient states he overdosed on sedative-type medications possibly Xanax possible Ativan combine with alcohol prior to admission. Current Visit: No Status: Acute Code(s): R74.8 - ABNORMAL LEVELS OF OTHER SERUM ENZYMES SNOMED Code(s): 260865437 (2) Hepatitis C Current Visit: Yes Status: Acute Code(s): B19.20 - UNSPECIFIED VIRAL HEPATITIS C WITHOUT HEPATIC COMA SNOMED Code(s): 89930899 (3) ETOH abuse Current Visit: Yes Status: Chronic Code(s): F10.10 - ALCOHOL ABUSE, UNCOMPLICATED SNOMED Code(s): 43724444 (4) Depression Current Visit: Yes Status: Chronic Code(s): F32.9 - MAJOR DEPRESSIVE DISORDER, SINGLE EPISODE, UNSPECIFIED SNOMED Code(s): 31867464 Plan: 1. Case was discussed with psychiatrist Dr. Muniz. CT abdomen and pelvis with IV contrast only for further evaluation of elevated liver enzymes. Discharge planned later today per psychiatry. Agreeable for discharge after CT is completed. 2. Public guardian to assist with follow-up visit and requested blood work. Return to GI office 7-10 days for reevaluation and discussion of CT results, treatment options for hepatitis C. Recommend repeat CMP/ET INR in 3-5 days; prescriptions provided. 3. Alcohol abstinence strongly advised. Avoid hepatotoxic medications. Cautious use with NSAIDs and acetaminophen products. Thank you for this kind referral and the opportunity to participate in the care of your patient. This consultation was discussed with Dr. Phan. The impression and plan of care have been directed as dictated.
--- NOTE | 2018-02-10 11:20 | CT ---
EXAMINATION TYPE: CT abdomen pelvis w con DATE OF EXAM: 02/10/2018 COMPARISON: 04/19/2017 HISTORY: Elevated liver enzymes, lower pelvic pain CT DLP: 1653 mGycm CONTRAST: CT scan of the abdomen and pelvis is performed without Oral Contrast and with IV Contrast, patient in jected with 100 mL of Isovue 300. FINDINGS: LUNG BASES-: No visible nodule. No infiltrate. LIVER/GB: No calcified gallstones. No space occupying hepatic lesion. Biliary tree is of normal ca liber. Healed right-sided rib fractures noted. PANCREAS: No inflammation. No distinct mass. SPLEEN: No splenic enlargement. No lesion seen. ADRENALS: No nodule. No thickening. KIDNEYS/BLADDER: No hydronephrosis. No nephrolithiasis. No distinct renal mass. Urinary bladder g rossly unremarkable. BOWEL: Normal appendix. Luminal narrowing of the mid sigmoid colon may reflect spasm. Underlying lesi on not excluded. Consider direct visualization. No inflammation. GENITAL ORGANS: No gross abnormality. LYMPH NODES: No greater than 1cm abdominal or pelvic lymph nodes are appreciated. AORTA: No significant abnormality. OSSEOUS STRUCTURES: No significant abnormality is seen. OTHER: No significant additional abnormality is seen. IMPRESSION: 1. Luminal narrowing of the mid sigmoid colon may reflect spasm. Underlying lesion not excluded. Cons ider direct visualization.
--- NOTE | 2018-02-10 12:10 | P.DS ---
Providers Date of admission: 02/05/18 20:29 Expected date of discharge: 02/10/18 Attending physician: She Muniz MD Consults: 02/05/18 20:53 Consult Physician Routine Consulting Provider: Durga Garza Consult Reason/Comments: follow up H & P Do you want consulting provider notified?: Yes 02/09/18 17:21 Consult Physician Routine Consulting Provider: Claudia العراقي Consult Reason/Comments: hepatitis, rising liver enzyme Do you want consulting provider notified?: Yes Primary care physician: Durga Garza Hospital Course: Discharge Diagnosis: Alcohol-induced depressive disorder with use disorder, moderate Reason for Admission: Patient is a 62-year-old male who was admitted after he reported drinking alcohol and taking Xanax to help with his pain. Patient has called his guardian and told the guardian davide regarding contacted police and EMS brought the patient to the emergency room. Patient reports that he started drinking and was apparently taking some of his Xanax that he had at home in an attempt to connect with his dog. Patient complained of not sleeping well due to his pain. Patient had been on methadone and medications for high blood pressure but had run out of these prior to his admission as well as his medications for COPD. Patient reported feeling depressed due to losing his dog while he was in the hospital at the end of December. He reports a poor appetite as well as poor sleep. Patient denied any current suicidal or homicidal ideation on admission stating that he wanted something for pain. Patient recently been in the hospital on the medical floor early in December and was discharged to [facility] and was readmitted at the end of December after he had been returned home due to taking methadone, Ativan and alcohol. Hospital Course: Patient was admitted on a voluntary basis, placed on routine observation as well as group and activity therapy were ordered. Patient also had routine laboratory studies as well as a medical consultation. Patient was placed on Ativan for withdrawal symptoms, his UDS on admission was positive for methadone but was not positive for any benzodiazepines. His BAT in the ER was 0.053. Patient initially refused any medications to treat his depression when he was admitted, but when I saw the patient he was agreeable to begin Lexapro 5 mg daily for his depression and melatonin 2 mg to assist with his sleep. Patient had last fill his prescriptions for methadone and Ativan in December, he received 60, 10 mg methadone tablets on January 02 and had received Ativan 1 mg # 21 on January 02, he had received past takes 30 on December 26. Patient's last prescription for Xanax 1 mg tablets was filled on October 20. Patient was not restarted on methadone, he was receiving Ativan 1 mg orally for withdrawal symptoms, he was also placed on Imodium for diarrhea. Patient reported that he was feeling much better on the Lexapro and melatonin, stating that he had been sleeping well, was feeling less depressed and had no further suicidal thoughts. Patient's liver enzymes were elevated, a gastroenterology consult was obtained and they ordered a computed tomography scan of his abdomen which was essentially negative. Patient will follow-up with them in several weeks after discharge as the patient is hepatitis C positive. Patient felt that he was ready for discharge, his guardian was informed and was agreeable with the plan the patient will return to live in his own home. Allergies [place] Feces Allergy (Uncoded 02/05/18 22:59) Dyspnea Laboratory Last Values WBC 8.1 k/uL (3.8-10.6) 02/05/18 19:20 RBC 4.48 m/uL (4.30-5.90) 02/05/18 19:20 Hgb 15.8 gm/dL (13.0-17.5) D 02/05/18 19:20 Hct 48.1 % (39.0-53.0) 02/05/18 19:20 MCV 107.3 fL (80.0-100.0) H 02/05/18 19:20 MCH 35.3 pg (25.0-35.0) H 02/05/18 19:20 MCHC 32.9 g/dL (31.0-37.0) 02/05/18 19:20 RDW 14.0 % (11.5-15.5) 02/05/18 19:20 Plt Count 188 k/uL (150-450) 02/05/18 19:20 Neutrophils % 39 % 02/05/18 19:20 Lymphocytes % 43 % 02/05/18 19:20 Monocytes % 5 % 02/05/18 19:20 Eosinophils % 11 % 02/05/18 19:20 Basophils % 1 % 02/05/18 19:20 Neutrophils # 3.2 k/uL (1.3-7.7) 02/05/18 19:20 Lymphocytes # 3.5 k/uL (1.0-4.8) 02/05/18 19:20 Monocytes # 0.4 k/uL (0-1.0) 02/05/18 19:20 Eosinophils # 0.9 k/uL (0-0.7) H 02/05/18 19:20 Basophils # 0.1 k/uL (0-0.2) 02/05/18 19:20 Macrocytosis Moderate 02/05/18 19:20 Sodium 141 mmol/L (137-145) 02/09/18 09:10 Potassium 4.5 mmol/L (3.5-5.1) 02/09/18 09:10 Chloride 107 mmol/L (98-107) 02/09/18 09:10 Carbon Dioxide 20 mmol/L (22-30) L 02/09/18 09:10 Anion Gap 14 mmol/L 02/09/18 09:10 BUN 15 mg/dL (9-20) 02/09/18 09:10 Creatinine 0.68 mg/dL (0.66-1.25) 02/09/18 09:10 Est GFR (CKD-EPI)AfAm >90 (>60 ml/min/1.73 sqM) 02/09/18 09:10 Est GFR (CKD-EPI)NonAf >90 (>60 ml/min/1.73 sqM) 02/09/18 09:10 Glucose 118 mg/dL (74-99) H 02/09/18 09:10 Calcium 9.1 mg/dL (8.4-10.2) 02/09/18 09:10 Total Bilirubin 2.0 mg/dL (0.2-1.3) H 02/09/18 09:10 Conjugated Bilirubin 0.0 mg/dL (0.0-0.3) 02/05/18 19:20 Unconjugated Bilirubin 0.0 mg/dL (0.0-1.1) 02/05/18 19:20 Delta Bilirubin 0.6 mg/dL (0.0-0.2) H 02/05/18 19:20 AST 796 U/L (17-59) H 02/09/18 09:10 ALT 573 U/L (21-72) H 02/09/18 09:10 Alkaline Phosphatase 145 U/L (38-126) H 02/09/18 09:10 Ammonia 26 umol/L (<30) 02/10/18 09:21 Total Protein 6.3 g/dL (6.3-8.2) 02/09/18 09:10 Albumin 3.5 g/dL (3.5-5.0) 02/09/18 09:10 TSH 2.400 mIU/L (0.465-4.680) 02/05/18 19:20 Urine Opiates Screen Not Detected (NotDetected) 02/05/18 18:30 Ur Oxycodone Screen Not Detected (NotDetected) 02/05/18 18:30 Urine Methadone Screen Detected (NotDetected) H 02/05/18 18:30 Ur Propoxyphene Screen Not Detected (NotDetected) 02/05/18 18:30 Ur Barbiturates Screen Not Detected (NotDetected) 02/05/18 18:30 U Tricyclic Antidepress Not Detected (NotDetected) 02/05/18 18:30 Ur Phencyclidine Scrn Not Detected (NotDetected) 02/05/18 18:30 Ur Amphetamines Screen Not Detected (NotDetected) 02/05/18 18:30 U Methamphetamines Scrn Not Detected (NotDetected) 02/05/18 18:30 U Benzodiazepines Scrn Not Detected (NotDetected) 02/05/18 18:30 Urine Cocaine Screen Not Detected (NotDetected) 02/05/18 18:30 U Marijuana (THC) Screen Not Detected (NotDetected) 02/05/18 18:30 Discharge Mental Status: Appearance/Attitude: Patient is casually dressed, makes good eye contact and is cooperative. Behavior: Patient does not exhibit any psychomotor agitation or retardation. Speech/Language: Patient's speech is spontaneous and normal volume and rhythm and he is coherent. Thought Process: Patient is goal-directed there is no evidence of loose association or flight of ideas. Thought Content: Patient denies any auditory or visual hallucinations and no delusions or paranoid ideation were elicited. Patient states he is not feeling hopeless and states that he is eager to return to his home as he is purchasing another puppy. Patient reports that he is sleeping well, his appetite is fair. Patient reports that he continues to have some pain. Suicidal/Homicidal Ideation: Patient denies any current suicidal or homicidal ideation Sensorium/Cognition: Patient is alert and oriented to person, place, and time and his recent and remote memory are grossly intact Mood/Affect: Patient's mood is less depressed and his affect is appropriate Insight/Judgment: Patient's insight and judgment are limited Risk Assessment: Patient's risk for self harm is moderate due to his history of alcohol use, living alone with minimal support system Discharge Plan: Patient will return to his own home, home health will be reordered. Patient will continue on his prior medications for his medical problems and he will also continue on Lexapro 5 mg in the morning and melatonin 2 mg at bedtime. Patient was advised to be compliant with his medications and his outpatient appointments. Patient was advised to not restart methadone, Xanax or Ativan if he has any of the remaining at home. Patient will follow-up with his primary care physician and he will also follow-up with the GI physicians and will have a comprehensive metabolic panel as well as a INR done in 3-5 days after discharge. Patient was advised to avoid all alcohol and drugs. Patient will also have an appointment set up for follow-up at [facility]. Patient's guardian was informed of his appointments and need for assistance in getting to these appointments as the patient has no transportation. Patient Condition at Discharge: Stable Plan - Discharge Summary Discharge Rx Participant: No New Discharge Prescriptions: New Escitalopram [Lexapro] 5 mg PO DAILY #14 tab Melatonin 2 mg PO HS #28 tab Continue Aspirin 325 mg PO DAILY tab Ibuprofen [Advil] 200 mg PO Q8HR PRN PRN Reason: Pain Budesonide-Formot 160-4.5 Mcg [Symbicort 160-4.5 Mcg Inhaler] 2 puff INHALATION RT-BID #1 inhaler Folic Acid 1 mg PO DAILY@1200 #28 tab Ipratropium-Albuterol Nebulize [Duoneb 0.5 mg-3 mg/3 ml Soln] 3 ml INHALATION RT-QID #112 ampul.neb Isosorbide Mononitrate ER [Imdur] 30 mg PO DAILY #1 tab Multivitamins, Thera [Multivitamin (formulary)] 1 tab PO DAILY@1200 #28 tab Pantoprazole [Protonix] 40 mg PO AC-BRKFST #28 tablet. Thiamine [Vitamin B-1] 100 mg PO BID@1200,1700 #56 tab Discontinued LORazepam [Ativan] 1 mg PO TID PRN #20 tab PRN Reason: Agitation Methadone [Dolophine] 20 mg PO Q12H Discharge Medication List Aspirin 325 mg PO DAILY tab 12/19/17 [Rx] Ibuprofen [Advil] 200 mg PO Q8HR PRN 02/05/18 [History] Budesonide-Formot 160-4.5 Mcg [Symbicort 160-4.5 Mcg Inhaler] 2 puff INHALATION RT-BID #1 inhaler 02/10/18 [Rx] Escitalopram [Lexapro] 5 mg PO DAILY #14 tab 02/10/18 [Rx] Folic Acid 1 mg PO DAILY@1200 #28 tab 02/10/18 [Rx] Ipratropium-Albuterol Nebulize [Duoneb 0.5 mg-3 mg/3 ml Soln] 3 ml INHALATION RT -QID #112 ampul.neb 02/10/18 [Rx] Isosorbide Mononitrate ER [Imdur] 30 mg PO DAILY #1 tab 02/10/18 [Rx] Melatonin 2 mg PO HS #28 tab 02/10/18 [Rx] Multivitamins, Thera [Multivitamin (formulary)] 1 tab PO DAILY@1200 #28 tab 11/29 [Rx] Pantoprazole [Protonix] 40 mg PO AC-BRKFST #28 tablet. 02/10/18 [Rx] Thiamine [Vitamin B-1] 100 mg PO BID@1200,1700 #56 tab 02/10/18 [Rx] Follow up Appointment(s)/Referral(s): [facility] [Outside] - 1-2 Days (02-16-18 at 1:00 with Nancy whiteside [facility]. ) Nonstaff,Physician [REFERRING] - 1-2 days Mellissa Nichole PAC [REFERRING] - 02/23/18 10:45 am Ambulatory/Diagnostic Orders: Comprehensive Metabolic Panel [LAB.AMB] Time Frame: 3 Days, Location: Determined By Patient Prothrombin Time INR [LAB.AMB] Time Frame: 3 Days, Location: Determined By Patient Discharge Disposition: HOME WITH HOME HEALTH SERVICES
[2018-02-10] MEDS: MULTIVITAMINS, THERA 1 EACH TAB PO SCH (12:12)
[2018-02-10] MEDS: THIAMINE 100 MG TAB PO SCH ×2 (12:12→16:56)
[2018-02-10] MEDS: FOLIC ACID 1 MG TAB PO SCH (12:12)
[2018-02-10] MEDS: IBUPROFEN 200 MG TAB PO PRN (12:13)
[2018-02-10 16:57] VITALS: BP 132/83; PULSE 98
== END 2018-02-10 18:03 | disposition home health service (06) | DRG 897 ==
LOC: EC 16:36 → 3MHU 20:29
PROVIDERS: ADMIT Psychiatry & Neurology Psychiatry; ATTEND Psychiatry & Neurology Psychiatry
DX: F10.24 Alcohol dependence with alcohol-induced mood disorder (principal); I50.32 Chronic diastolic (congestive) heart failure; E46 Unspecified protein-calorie malnutrition; I11.0 Hypertensive heart disease with heart failure; J43.9 Emphysema, unspecified; F11.99 Opioid use, unspecified with unspecified opioid-induced disorder; F41.1 Generalized anxiety disorder; B19.20 Unspecified viral hepatitis C without hepatic coma; G89.4 Chronic pain syndrome; D86.0 Sarcoidosis of lung; K70.9 Alcoholic liver disease, unspecified; R19.7 Diarrhea, unspecified; J45.909 Unspecified asthma, uncomplicated; T42.4X1A Poisoning by benzodiazepines, accidental (unintentional), initial encounter; Z79.82 Long term (current) use of aspirin; Z79.51 Long term (current) use of inhaled steroids; Z79.899 Other long term (current) drug therapy; Z91.09 Other allergy status, other than to drugs and biological substances; Z87.01 Personal history of pneumonia (recurrent); Z87.81 Personal history of (healed) traumatic fracture; Z86.14 Personal history of Methicillin resistant Staphylococcus aureus infection; Z87.891 Personal history of nicotine dependence; Z82.49 Family history of ischemic heart disease and other diseases of the circulatory system; Z80.8 Family history of malignant neoplasm of other organs or systems; Z81.8 Family history of other mental and behavioral disorders
CPT/HCPCS: 36415; 71046; 74177; 80053; 80076; 80306; 82075; 82140; 84443; 85025; 94640; 99285

== ENCOUNTER 2018-05-14 04:06 | Inpatient (IN) | payer OTHER ==
[2018-05-14] MEDS ORDERED: methylPREDNISolone SOD SUCCI 125 MG/2 ML VIAL IV STA (04:20)
[2018-05-14] MEDS ORDERED: IPRATROPIUM-ALBUTEROL 3 ML NEB INHALATION STA (04:20)
--- NOTE | 2018-05-14 04:22 | ED ---
General Adult HPI - General Chief complaint: Shortness of Breath Stated complaint: KRISHNA Time Seen by Provider: 05/14/18 04:07 Source: patient, EMS Mode of arrival: EMS Limitations: no limitations - History of Present Illness Initial comments: All is a 62 yo male with PMH of COPD who presents to the ED today via EMS for evaluation of right sided chest pain, shortness of breath and productive cough. She reports that he has COPD and uses a breathing treatment 4 times daily, he was previously on oxygen but has not been for a number of years. He states that he has a chronic cough and frequent wheezing due to this. He states that he has noticed recently that his cough is getting worse and more productive. In addition he has pain on the right side of his chest, patient does admit to falling onto his right side yesterday. He reports that he has pain in his right lateral ribs radiating into his right shoulder. Patient reports that he uses breathing treatments as usual throughout the day on , his last treatment was around 10 AM when he was going to bed. He woke around 3:30 feeling more short of breath and more pain so he called EMS for transfer to the hospital. Patient denies any fevers, chills, nausea or vomiting. He denies any exertional chest pain, lightheadedness or diaphoresis. - Related Data Home Medications Medication Instructions Recorded Confirmed Ibuprofen [Advil] 200 mg PO Q8HR PRN 02/05/18 05/14/18 Previous Rx's Medication Instructions Recorded Aspirin 325 mg PO DAILY tab 12/19/17 Budesonide-Formot 160-4.5 Mcg 2 puff INHALATION RT-BID #1 inhaler 02/10/18 [Symbicort 160-4.5 Mcg Inhaler] Escitalopram [Lexapro] 5 mg PO DAILY #14 tab 02/10/18 Folic Acid 1 mg PO DAILY@1200 #28 tab 02/10/18 Ipratropium-Albuterol Nebulize 3 ml INHALATION RT-QID #112 02/10/18 [Duoneb 0.5 mg-3 mg/3 ml Soln] ampul.neb Isosorbide Mononitrate ER [Imdur] 30 mg PO DAILY #1 tab 02/10/18 Melatonin 2 mg PO HS #28 tab 02/10/18 Multivitamins, Thera [Multivitamin 1 tab PO DAILY@1200 #28 tab 02/10/18 (formulary)] Pantoprazole [Protonix] 40 mg PO VINAY-BRKFST #28 tablet. 02/10/18 Thiamine [Vitamin B-1] 100 mg PO BID@1200,1700 #56 tab 02/10/18 Allergies Allergy/AdvReac Type Severity Reaction Status Date / Time Hyder Feces Allergy Dyspnea Uncoded 05/14/18 04:14 Review of Systems ROS Statement: Those systems with pertinent positive or pertinent negative responses have been documented in the HPI. ROS Other: All systems not noted in ROS Statement are negative. Constitutional: Denies: fever Respiratory: Reports: cough, dyspnea, wheezes Cardiovascular: Reports: chest pain. Denies: palpitations Endocrine: Reports: fatigue Gastrointestinal: Denies: abdominal pain, nausea, vomiting Genitourinary: Denies: urgency, dysuria Musculoskeletal: Denies: back pain Skin: Denies: rash Neurological: Denies: headache Psychiatric: Denies: anxiety Hematological/Lymphatic: Denies: easy bleeding, easy bruising Past Medical History Past Medical History: Asthma, Chest Pain / Angina, Heart Failure, COPD, Hypertension, Liver Disease, Pneumonia Additional Past Medical History / Comment(s): COPD, recent hospitalization with fall and a small right-sided pneumothorax, traumatic seventh through ninth nondisplaced rib fractures, alcoholism, previous history of delirium tremens, liver 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 states his lung Past Surgical History: Orthopedic Surgery Additional Past Surgical History / Comment(s): neck fracture, Past Anesthesia/Blood Transfusion Reactions: No Reported Reaction Past Psychological History: Anxiety, PTSD Smoking Status: Former smoker Past Alcohol Use History: Heavy, Occasional Past Drug Use History: None Reported - Past Family History Father Family Medical History: Congestive Heart Failure (CHF), Coronary Artery Disease (CAD), Hypertension Mother Family Medical History: Cancer, Hypertension Additional Family Medical History / Comment(s): Melanoma on nose. General Exam Limitations: no limitations General appearance: alert, in no apparent distress Head exam: Present: atraumatic, normocephalic Eye exam: Present: normal appearance ENT exam: Present: normal exam Neck exam: Present: normal inspection Respiratory exam: Present: wheezes, chest wall tenderness. Absent: normal lung sounds bilaterally Cardiovascular Exam: Present: regular rate GI/Abdominal exam: Present: soft. Absent: distended Rectal exam: Present: deferred Extremities exam: Present: normal inspection Neurological exam: Present: alert, oriented X3 Psychiatric exam: Present: normal affect, normal mood Skin exam: Present: warm, dry Course Vital Signs 05/14/18 05/14/18 05/14/18 04:07 04:42 04:53 Temperature 99 F Pulse Rate 98 97 88 Respiratory 20 Rate Blood Pressure 158/83 O2 Sat by Pulse 92 L Oximetry 05/14/18 05/14/18 05:56 07:17 Temperature Pulse Rate 96 95 Respiratory 16 18 Rate Blood Pressure 141/81 146/84 O2 Sat by Pulse 98 96 Oximetry EKG Findings - EKG Comments: EKG Findings:: EKG at 4:13am - rate 97, rhythm sinus, normal axis, normal intervals, MI 194, QRS 66 QTC 416, Medical Decision Making - Medical Decision Making The patient was seen and evaluated, history was obtained from the patient Patient noted to have oxygen saturation of 89-92% on 2L NC Workup ordered to evaluate for COPD vs pneumonia Duoneb, Solumedrol ordered Chest x-ray with no evidence of pneumonia Labs and no significant abnormalities EKG sinus rhythm with no acute ST elevations or depressions Patient reevaluated after DuoNeb's and Solu-Medrol, remains slightly tachypneic with conversational dyspnea. At this time I feel the patient requires further intervention and would benefit from being brought into the hospital for round- the-clock DuoNeb therapy and reconsideration of oxygen at home as the patient's oxygen saturations are in the low 90s with 3 L of nasal cannula oxygen. The patient's care was discussed with his primary care provider Dr. Garza who recommends patient be admitted to medicine with him on consult for a COPD exacerbation - Lab Data Result diagrams: 05/14/18 04:22 05/14/18 04:22 Lab Results 05/14/18 05/14/18 05/14/18 Range/Units 04:22 04:22 04:22 WBC 9.8 (3.8-10.6) k/uL RBC 4.65 (4.30-5.90) m/uL Hgb 16.1 (13.0-17.5) gm/dL Hct 48.5 (39.0-53.0) % MCV 104.3 H (80.0-100.0) fL MCH 34.6 (25.0-35.0) pg MCHC 33.2 (31.0-37.0) g/dL RDW 13.7 (11.5-15.5) % Plt Count 213 (150-450) k/uL Neutrophils % 50 % Lymphocytes % 36 % Monocytes % 6 % Eosinophils % 5 % Basophils % 1 % Neutrophils # 4.9 (1.3-7.7) k/uL Lymphocytes # 3.5 (1.0-4.8) k/uL Monocytes # 0.6 (0-1.0) k/uL Eosinophils # 0.5 (0-0.7) k/uL Basophils # 0.1 (0-0.2) k/uL Macrocytosis Slight PT (9.0-12.0) sec INR (<1.2) APTT (22.0-30.0) sec Sodium 140 (137-145) mmol/L Potassium 4.6 (3.5-5.1) mmol/L Chloride 107 (98-107) mmol/L Carbon Dioxide 24 (22-30) mmol/L Anion Gap 9 mmol/L BUN 11 (9-20) mg/dL Creatinine 0.77 (0.66-1.25) mg/dL Est GFR (CKD-EPI)AfAm >90 (>60 ml/min/1.73 sqM) Est GFR (CKD-EPI)NonAf >90 (>60 ml/min/1.73 sqM) Glucose 108 H (74-99) mg/dL Calcium 9.4 (8.4-10.2) mg/dL Magnesium 1.7 (1.6-2.3) mg/dL Total Bilirubin 0.6 (0.2-1.3) mg/dL AST 31 (17-59) U/L ALT 32 (21-72) U/L Alkaline Phosphatase 57 (38-126) U/L Total Creatine Kinase 141 (55-170) U/L CK-MB (CK-2) 2.4 (0.0-2.4) ng/mL CK-MB (CK-2) Rel Index 1.7 Troponin I <0.012 (0.000-0.034) ng/mL Total Protein 7.0 (6.3-8.2) g/dL Albumin 4.0 (3.5-5.0) g/dL 05/14/18 Range/Units 04:22 WBC (3.8-10.6) k/uL RBC (4.30-5.90) m/uL Hgb (13.0-17.5) gm/dL Hct (39.0-53.0) % MCV (80.0-100.0) fL MCH (25.0-35.0) pg MCHC (31.0-37.0) g/dL RDW (11.5-15.5) % Plt Count (150-450) k/uL Neutrophils % % Lymphocytes % % Monocytes % % Eosinophils % % Basophils % % Neutrophils # (1.3-7.7) k/uL Lymphocytes # (1.0-4.8) k/uL Monocytes # (0-1.0) k/uL Eosinophils # (0-0.7) k/uL Basophils # (0-0.2) k/uL Macrocytosis PT 10.4 (9.0-12.0) sec INR 1.1 (<1.2) APTT 22.6 (22.0-30.0) sec Sodium (137-145) mmol/L Potassium (3.5-5.1) mmol/L Chloride (98-107) mmol/L Carbon Dioxide (22-30) mmol/L Anion Gap mmol/L BUN (9-20) mg/dL Creatinine (0.66-1.25) mg/dL Est GFR (CKD-EPI)AfAm (>60 ml/min/1.73 sqM) Est GFR (CKD-EPI)NonAf (>60 ml/min/1.73 sqM) Glucose (74-99) mg/dL Calcium (8.4-10.2) mg/dL Magnesium (1.6-2.3) mg/dL Total Bilirubin (0.2-1.3) mg/dL AST (17-59) U/L ALT (21-72) U/L Alkaline Phosphatase (38-126) U/L Total Creatine Kinase (55-170) U/L CK-MB (CK-2) (0.0-2.4) ng/mL CK-MB (CK-2) Rel Index Troponin I (0.000-0.034) ng/mL Total Protein (6.3-8.2) g/dL Albumin (3.5-5.0) g/dL Disposition Clinical Impression: COPD exacerbation Disposition: ADMITTED IP TO THIS HOSP Referrals: Durga Garza MD [Primary Care Provider] - 1-2 days Decision Time: 08:31
[2018-05-14 04:36] LABS: Basophils # (A) 0.1 k/uL (0-0.2); Basophils % (A) 1 %; Eosinophils # (A) 0.5 k/uL (0-0.7); Eosinophils % (A) 5 %; HCT 48.5 % (39.0-53.0); HGB 16.1 gm/dL (13.0-17.5); Lymphocytes # (A) 3.5 k/uL (1.0-4.8); Lymphocytes % (A) 36 %; MCH 34.6 pg (25.0-35.0); MCHC 33.2 g/dL (31.0-37.0); MCV 104.3 fL (80.0-100.0); Macrocytosis Slight; Mean Platelet Volume 7.3; Monocytes # (A) 0.6 k/uL (0-1.0); Monocytes % (A) 6 %; Neutrophils # (A) 4.9 k/uL (1.3-7.7); Neutrophils % (A) 50 %; Platelet Count 213 k/uL (150-450); RBC 4.65 m/uL (4.30-5.90); RDW 13.7 % (11.5-15.5); WBC 9.8 k/uL (3.8-10.6)
[2018-05-14 04:40] LABS: INR 1.1 (<1.2); Partial Thromboplastin Time 22.6 sec (22.0-30.0); Prothrombin Time 10.4 sec (9.0-12.0)
[2018-05-14 04:42] LABS: ALT 32 U/L (21-72); AST 31 U/L (17-59); Alkaline Phosphatase 57 U/L (38-126); Anion Gap 9 mmol/L; Blood Urea Nitrogen 11 mg/dL (9-20); Calcium 9.4 mg/dL (8.4-10.2); Carbon Dioxide 24 mmol/L (22-30); Chloride 107 mmol/L (98-107); Glucose 108 mg/dL (74-99); Magnesium 1.7 mg/dL (1.6-2.3); Potassium 4.6 mmol/L (3.5-5.1); Sodium 140 mmol/L (137-145); Total Bilirubin 0.6 mg/dL (0.2-1.3)
--- NOTE | 2018-05-14 04:48 | XR ---
EXAMINATION TYPE: XR chest 2V DATE OF EXAM: 05/14/2018 COMPARISON: 02/05/2018 HISTORY: Difficulty breathing TECHNIQUE: Frontal and lateral views of the chest are obtained. FINDINGS: There is no heart failure nor confluent pneumonic infiltrate. There are old right side pos terior rib fractures. There are chest leads. Costophrenic angles are clear. There is mild wedging of T12 vertebra. IMPRESSION: Old thoracic compression fracture. Old right rib fractures. No acute lung disease. No ch aurora compared to old exam.
[2018-05-14 04:58] LABS: Creatine Kinase 141 U/L (55-170)
[2018-05-14 05:10] LABS: Creatine Kinase MB 2.4 ng/mL (0.0-2.4); Troponin I <0.012 ng/mL (0.000-0.034)
[2018-05-14] MEDS: LIDOCAINE 5% PATCH TOPICAL SCH (05:54)
[2018-05-14] MEDS ORDERED: ACETAMINOPHEN TAB 325 MG TAB PO PRN (08:15)
[2018-05-14] MEDS ORDERED: IPRATROPIUM-ALBUTEROL 3 ML NEB INHALATION PRN (08:15)
[2018-05-14] MEDS ORDERED: NALOXONE 0.4 MG/ML 1 ML VIAL IV PRN (08:15)
[2018-05-14] MEDS ORDERED: ALPRAZolam 1 MG TAB PO SCH (10:15)
[2018-05-14 10:56] VITALS: BMI 29.7
[2018-05-14] MEDS: IPRATROPIUM-ALBUTEROL 3 ML NEB INHALATION SCH ×3 (11:04→19:16)
--- NOTE | 2018-05-14 11:11 | P.HPIM ---
History of Present Illness This is a pleasant 62 years old male with past medical history of asthma, coronary artery disease, heart failure with diastolic dysfunction, COPD, hypertension, liver disease, fall and right-sided pneumothorax, alcoholism. Alcoholic liver disease with abnormal LFTs, patient presents because of worsening dyspnea over to 3 days duration. Associated with worsening cough and yellow phlegm. Patient admits she still have the dog at home. He follow-up with his circulation representative Dr. Garza. He missed his appointment last time and he states is scheduled for another recent soon. In the emergency room Sabina looks stable. BMP was unremarkable, LFTs within within normal limits. Troponins was negative. INR 1.1. CBC was unremarkable. EKG shows normal sinus rhythm at 97 with no significant T-wave abnormality area QTC 416. Chest x-ray shows thoracic compression fractures and all dried rib fracture. No acute lung disease as per radiology reports. EKG Sylvie juice including montelukast, Geodon, Pulmicort, insulin sliding scale , Monalisa, Solu-Medrol 60 mg IV every 6 hours, Xanax, hydrochlorothiazide 25 mg, Cardizem 180 mg daily, lidocaine patch, Narcan, Tylenol when necessary, Review of Systems CONSTITUTIONAL: No fever, no malaise, no fatigue. HEENT: No recent visual problems or hearing problems. Denied any sore throat. CARDIOVASCULAR: No orthopnea, PND, no palpitations, no syncope. PULMONARY: No shortness of breath, no cough, no hemoptysis. GASTROINTESTINAL: No diarrhea, no nausea, no vomiting, no abdominal pain. Normoactive bowel sounds. NEUROLOGICAL: No headaches, no weakness, no numbness. HEMATOLOGICAL: Denies any bleeding or petechiae. GENITOURINARY: Denies any burning micturition, frequency, or urgency. MUSCULOSKELETAL/RHEUMATOLOGICAL: Denies any joint pain, swelling, or any muscle pain. ENDOCRINE: Denies any polyuria or polydipsia. 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 states his lung Past Surgical History: Orthopedic Surgery Additional Past Surgical History / Comment(s): neck fracture, Past Anesthesia/Blood Transfusion Reactions: No Reported Reaction Past Psychological History: Anxiety, PTSD Smoking Status: Former smoker Past Alcohol Use History: Heavy, Occasional Past Drug Use History: None Reported - Past Family History Father Family Medical History: Congestive Heart Failure (CHF), Coronary Artery Disease (CAD), Hypertension Mother Family Medical History: Cancer, Hypertension Additional Family Medical History / Comment(s): Melanoma on nose. Medications and Allergies Home Medications Medication Instructions Recorded Confirmed Type Budesonide-Formot 160-4.5 Mcg 2 puff INHALATION RT-BID 05/14/18 05/14/18 History [Symbicort 160-4.5 Mcg Inhaler] Diltiazem Cd [Cardizem Cd] 180 mg PO DAILY 05/14/18 05/14/18 History Escitalopram Oxalate [Lexapro] 10 mg PO DAILY 05/14/18 05/14/18 History Hydrochlorothiazide [Hydrodiuril] 25 mg PO DAILY 05/14/18 05/14/18 History Ipratropium-Albuterol Nebulize 1 ampul INHALATION QID 05/14/18 05/14/18 History [Duoneb 0.5 mg-3 mg/3 ml Soln] Methadone [Dolophine] 20 mg PO Q12H 05/14/18 05/14/18 History Allergies Allergy/AdvReac Type Severity Reaction Status Date / Time [place] Feces Allergy Dyspnea Uncoded 05/14/18 04:14 Physical Exam Vitals: Vital Signs Temp Pulse Resp BP Pulse Ox 05/14/18 09:14 97.6 F 96 18 148/90 95 05/14/18 07:17 95 18 146/84 96 05/14/18 05:56 96 16 141/81 98 05/14/18 04:53 88 05/14/18 04:42 97 05/14/18 04:07 99 F 98 20 158/83 92 L Intake and Output 05/13/18 05/14/18 05/14/18 22:59 06:59 14:59 Other: Weight 89.811 kg 91.5 kg GENERAL: The patient is alert and oriented x3, not in any acute distress. Well developed, well nourished. HEENT: Pupils are round and equally reacting to light. EOMI. No scleral icterus. No conjunctival pallor. Normocephalic, atraumatic. No pharyngeal erythema. No thyromegaly. CARDIOVASCULAR: S1 and S2 present. No murmurs, rubs, or gallops. PULMONARY: Chest is clear to auscultation, no wheezing or crackles. ABDOMEN: Soft, nontender, nondistended, normoactive bowel sounds. No palpable organomegaly. MUSCULOSKELETAL: No joint swelling or deformity. EXTREMITIES: No cyanosis, clubbing, or pedal edema. NEUROLOGICAL: Gross neurological examination did not reveal any focal deficits. SKIN: No rashes. Results CBC & Chem 7: 05/14/18 04:22 05/14/18 04:22 Labs: Abnormal Lab Results - Last 24 Hours (Table) 05/14/18 05/14/18 Range/Units 04:22 04:22 MCV 104.3 H (80.0-100.0) fL Glucose 108 H (74-99) mg/dL Assessment and Plan Plan: Patient has a guardian. - COPD with acute exacerbation. Continue with steroids, breathing treatment, doxycycline. -Hypertension, continue with same treatment. -Right side chest pain and tenderness, from old from fracture. Continue with pain management. -Right upper quadrant tenderness. LFTs within normal limits. Mostly referred pain from right rib fracture pain -Chronic diastolic CHF, not an active issue -Occasional drinking of alcohol. Has been drinking last 2 days but not everyday GI prophylaxis Pepcid DVT prophylaxis: Heparin PT/OT: Pending
[2018-05-14] MEDS ORDERED: SODIUM CHLORIDE 0.9% 1,000 ML IV SCH (11:15)
[2018-05-14] MEDS: DILTIAZEM CD 180 MG CAP.ER.24H PO SCH ×2 (11:21→11:24)
[2018-05-14] MEDS: DOXYCYCLINE 50 MG CAP PO SCH ×2 (11:24→20:35)
[2018-05-14] MEDS: HYDROCHLOROTHIAZIDE 25 MG TAB PO SCH (11:24)
[2018-05-14] MEDS: ESCITALOPRAM 10 MG TAB PO SCH (11:31)
[2018-05-14] MEDS: METHADONE 5 MG TAB PO SCH ×2 (11:32→20:33)
[2018-05-14 11:36] LABS: Glucose,Whole Blood 210 mg/dL (75-99)
[2018-05-14] MEDS ORDERED: LORazepam 2 MG/ML INJ IV PRN ×3 (11:48)
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
[2018-05-14] MEDS: MULTIVITAMINS, THERA 1 EACH TAB PO SCH (12:08)
[2018-05-14] MEDS: methylPREDNISolone SOD SUCCI 125 MG/2 ML VIAL IV SCH ×2 (12:09→17:03)
[2018-05-14] MEDS: INSULIN ASPART 100 UNIT/ML 1 ML 10 ML VIAL SQ SCH ×3 (12:38→20:45)
[2018-05-14] MEDS: THIAMINE 100 MG TAB PO SCH (17:00)
[2018-05-14 17:03] LABS: Glucose,Whole Blood 143 mg/dL (75-99)
[2018-05-14] MEDS: BUDESONIDE 0.5 MG/2 ML NEBU INHALATION SCH (19:16)
[2018-05-14] MEDS ORDERED: SYMBICORT 160-4.5 MCG INHALER INHALATION SCH (20:00)
[2018-05-14] MEDS: MONTELUKAST 10 MG TAB PO SCH (20:33)
[2018-05-14] MEDS: HEPARIN SODIUM,PORCINE 5,000 UNIT/ML 1 ML VIAL SQ SCH (20:34)
[2018-05-14] MEDS: FAMOTIDINE 20 MG/2 ML VIAL IV SCH ×2 (20:34→20:39)
[2018-05-14 20:39] LABS: Glucose,Whole Blood 159 mg/dL (75-99)
[2018-05-14] MEDS ORDERED: ZIPRASIDONE 20 MG CAP PO SCH (21:00)
[2018-05-15] MEDS: methylPREDNISolone SOD SUCCI 125 MG/2 ML VIAL IV SCH ×4 (00:23→17:33)
[2018-05-15 07:09] LABS: Glucose,Whole Blood 151 mg/dL (75-99)
[2018-05-15] MEDS: BUDESONIDE 0.5 MG/2 ML NEBU INHALATION SCH ×2 (07:20→18:44)
[2018-05-15] MEDS: IPRATROPIUM-ALBUTEROL 3 ML NEB INHALATION SCH ×4 (07:22→18:44)
[2018-05-15 07:23] LABS: Basophils % (A) 0 %; Eosinophils % (A) 0 %; HCT 52.9 % (39.0-53.0); Lymphocytes # (A) 1.8 k/uL (1.0-4.8); Lymphocytes % (A) 12 %; MCH 33.9 pg (25.0-35.0); MCHC 32.1 g/dL (31.0-37.0); MCV 105.7 fL (80.0-100.0); Macrocytosis Moderate; Mean Platelet Volume 7.3; Monocytes # (A) 0.4 k/uL (0-1.0); Monocytes % (A) 3 %; Neutrophils # (A) 12.8 k/uL (1.3-7.7); Neutrophils % (A) 85 %; Platelet Count 226 k/uL (150-450); RBC 5.01 m/uL (4.30-5.90); RDW 13.3 % (11.5-15.5); WBC 15.1 k/uL (3.8-10.6)
[2018-05-15 07:34] LABS: Albumin 4.2 g/dL (3.5-5.0); Anion Gap 12 mmol/L; Calcium 9.6 mg/dL (8.4-10.2); Carbon Dioxide 23 mmol/L (22-30); Chloride 102 mmol/L (98-107); Glucose 136 mg/dL (74-99); Magnesium 1.7 mg/dL (1.6-2.3); Sodium 137 mmol/L (137-145); Total Bilirubin 0.7 mg/dL (0.2-1.3); Total Protein 7.3 g/dL (6.3-8.2)
[2018-05-15 07:36] LABS: ALT 27 U/L (21-72); AST 24 U/L (17-59); Alkaline Phosphatase 57 U/L (38-126); Blood Urea Nitrogen 20 mg/dL (9-20); Potassium 4.8 mmol/L (3.5-5.1)
[2018-05-15] MEDS: INSULIN ASPART 100 UNIT/ML 1 ML 10 ML VIAL SQ SCH ×4 (08:04→20:30)
[2018-05-15] MEDS: LIDOCAINE 5% PATCH TOPICAL SCH (08:04)
[2018-05-15] MEDS: FAMOTIDINE 20 MG/2 ML VIAL IV SCH (08:05)
[2018-05-15] MEDS: HEPARIN SODIUM,PORCINE 5,000 UNIT/ML 1 ML VIAL SQ SCH ×2 (08:05→20:25)
[2018-05-15] MEDS: ESCITALOPRAM 10 MG TAB PO SCH (08:06)
[2018-05-15] MEDS: DOXYCYCLINE 50 MG CAP PO SCH ×2 (08:06→20:25)
[2018-05-15] MEDS: METHADONE 5 MG TAB PO SCH ×2 (08:06→20:26)
[2018-05-15] MEDS: DILTIAZEM CD 180 MG CAP.ER.24H PO SCH (08:06)
[2018-05-15] MEDS: HYDROCHLOROTHIAZIDE 25 MG TAB PO SCH (08:06)
[2018-05-15 11:12] LABS: Glucose,Whole Blood 140 mg/dL (75-99)
--- NOTE | 2018-05-15 12:23 | P.PN ---
Subjective This is a pleasant 62 years old male with past medical history of asthma, coronary artery disease, heart failure with diastolic dysfunction, COPD, hypertension, liver disease, fall and right-sided pneumothorax, alcoholism. Alcoholic liver disease with abnormal LFTs, patient presents because of worsening dyspnea over to 3 days duration. Associated with worsening cough and yellow phlegm. Patient admits she still have the dog at home. He follow-up with his tableau developer Dr. Garza. He missed his appointment last time and he states is scheduled for another recent soon. In the emergency room Sabina looks stable. BMP was unremarkable, LFTs within within normal limits. Troponins was negative. INR 1.1. CBC was unremarkable. EKG shows normal sinus rhythm at 97 with no significant T-wave abnormality area QTC 416. Chest x-ray shows thoracic compression fractures and all dried rib fracture. No acute lung disease as per radiology reports. EKG Sylvie juice including montelukast, Geodon, Pulmicort, insulin sliding scale , March, Solu-Medrol 60 mg IV every 6 hours, Xanax, hydrochlorothiazide 25 mg, Cardizem 180 mg daily, lidocaine patch, Narcan, Tylenol when necessary, 05/15/2018 pt still dyspneic , mild coughing , his right lower chest pain from rib fracture is improving , his RUQ pain resolved today mostly it was a referred pain from lower chest injury . pulmonary input is appreciated . influenza test is negative. Has leukocytosis of 15.1 K, mostly related to his steroids Objective - Vital Signs Vital signs: Vital Signs Temp 97.9 F 05/15/18 06:12 Pulse 88 05/15/18 11:15 Resp 16 05/15/18 06:12 BP 151/66 05/15/18 06:12 Pulse Ox 93 L 05/15/18 07:22 Intake & Output 05/14/18 05/15/18 05/15/18 18:59 06:59 18:59 Intake Total 480 1180 Balance 480 1180 Weight 91.5 kg 94 kg Intake: Intake, IV Titration 600 Amount Sodium Chloride 0.9% 1, 600 000 ml @ 75 mls/hr IV . [id number] EL Rx#:[id number] Oral 480 580 Other: # Voids 2 - Exam GENERAL: The patient is alert and oriented x3, not in any acute distress. Well developed, well nourished. HEENT: Pupils are round and equally reacting to light. EOMI. No scleral icterus. No conjunctival pallor. Normocephalic, atraumatic. No pharyngeal erythema. No thyromegaly. CARDIOVASCULAR: S1 and S2 present. No murmurs, rubs, or gallops. -PULMONARY: Chest is clear to auscultation, no crackles. B/L scattered wheezing ABDOMEN: Soft, nontender, nondistended, normoactive bowel sounds. No palpable organomegaly. MUSCULOSKELETAL: No joint swelling or deformity. EXTREMITIES: No cyanosis, clubbing, or pedal edema. NEUROLOGICAL: Gross neurological examination did not reveal any focal deficits. SKIN: No rashes. - Labs CBC & Chem 7: 05/15/18 06:44 05/15/18 06:44 Labs: Abnormal Lab Results - Last 24 Hours (Table) 05/14/18 05/14/18 05/15/18 Range/Units 17:01 20:36 06:44 WBC 15.1 H (3.8-10.6) k/uL MCV 105.7 H (80.0-100.0) fL Neutrophils # 12.8 H (1.3-7.7) k/uL Glucose (74-99) mg/dL POC Glucose (mg/dL) 143 H 159 H (75-99) mg/dL 05/15/18 05/15/18 05/15/18 Range/Units 06:44 07:07 11:09 WBC (3.8-10.6) k/uL MCV (80.0-100.0) fL Neutrophils # (1.3-7.7) k/uL Glucose 136 H (74-99) mg/dL POC Glucose (mg/dL) 151 H 140 H (75-99) mg/dL Microbiology - Last 24 Hours (Table) 05/14/18 04:22 Blood Culture - Preliminary Blood No Growth after 24 hours Assessment and Plan Plan: Patient has a guardian. - COPD with acute exacerbation. Continue with steroids, breathing treatment, doxycycline. -Hypertension, continue with same treatment. -Right side chest pain and tenderness, from old from fracture. Continue with pain management. -Right upper quadrant tenderness. LFTs within normal limits. Mostly referred pain from right rib fracture pain -Chronic diastolic CHF, not an active issue -Occasional drinking of alcohol. Has been drinking last 2 days but not everyday GI prophylaxis Pepcid DVT prophylaxis: Heparin PT/OT: Pending
--- NOTE | 2018-05-15 12:54 | PN ---
PROGRESS NOTE DATE OF SERVICE: 05/15/2018 He has remained hemodynamically stable. He is less short of breath but continues to have some wheezing. On physical examination, respiratory rate is 16, pulse rate 96, temperature 97.9, blood pressure 151/66, oxygen saturation on room air 92%. HEENT is unremarkable. Chest reveals expiratory wheeze. Cardiovascular system is in S1, S2. Abdomen is soft. There is no edema. White count is 15.1, hemoglobin of 17, sodium 137, potassium 4.8, chloride 102, bicarb 23. Microbiological cultures are showing no growth. IMPRESSION AT THIS TIME: 1. Chronic hypoxemia may be contributing to polycythemia. 2. Acute hypoxic respiratory failure. 3. Chronic obstructive pulmonary disease with exacerbation. 4. Right-sided chest pain from previous rib fracture. Continue IV steroids, antibiotics, supplemental oxygen. Abstain from alcohol and smoking. Depending on how he does, we shall make further changes to his care. MMODL / IJN: [id number] /
[2018-05-15] MEDS: THIAMINE 100 MG TAB PO SCH ×2 (12:55→17:33)
[2018-05-15] MEDS: MULTIVITAMINS, THERA 1 EACH TAB PO SCH (12:55)
[2018-05-15 17:23] LABS: Glucose,Whole Blood 154 mg/dL (75-99)
[2018-05-15] MEDS: FAMOTIDINE 20 MG TAB PO SCH (20:25)
[2018-05-15] MEDS: MONTELUKAST 10 MG TAB PO SCH (20:25)
[2018-05-15 21:00] LABS: Glucose,Whole Blood 123 mg/dL (75-99)
[2018-05-16] MEDS: methylPREDNISolone SOD SUCCI 125 MG/2 ML VIAL IV SCH ×4 (00:19→23:58)
[2018-05-16 07:22] LABS: Glucose,Whole Blood 116 mg/dL (75-99)
[2018-05-16 07:23] LABS: Basophils % (A) 0 %; Eosinophils # (A) 0.1 k/uL (0-0.7); Eosinophils % (A) 0 %; HCT 51.2 % (39.0-53.0); HGB 16.5 gm/dL (13.0-17.5); Lymphocytes # (A) 1.5 k/uL (1.0-4.8); Lymphocytes % (A) 11 %; MCH 34.4 pg (25.0-35.0); MCHC 32.2 g/dL (31.0-37.0); MCV 106.7 fL (80.0-100.0); Macrocytosis Moderate; Mean Platelet Volume 6.9; Monocytes # (A) 0.7 k/uL (0-1.0); Monocytes % (A) 5 %; Neutrophils # (A) 11.7 k/uL (1.3-7.7); Neutrophils % (A) 83 %; Platelet Count 216 k/uL (150-450); RDW 13.8 % (11.5-15.5)
[2018-05-16] MEDS: INSULIN ASPART 100 UNIT/ML 1 ML 10 ML VIAL SQ SCH ×4 (07:31→21:03)
[2018-05-16] MEDS: FAMOTIDINE 20 MG TAB PO SCH ×2 (07:33→20:41)
[2018-05-16] MEDS: DILTIAZEM CD 180 MG CAP.ER.24H PO SCH (07:33)
[2018-05-16] MEDS: DOXYCYCLINE 50 MG CAP PO SCH ×2 (07:33→20:41)
[2018-05-16] MEDS: THIAMINE 100 MG TAB PO SCH ×2 (07:34→16:19)
[2018-05-16] MEDS: ESCITALOPRAM 10 MG TAB PO SCH (07:34)
[2018-05-16] MEDS: HEPARIN SODIUM,PORCINE 5,000 UNIT/ML 1 ML VIAL SQ SCH ×2 (07:34→20:40)
[2018-05-16] MEDS: MULTIVITAMINS, THERA 1 EACH TAB PO SCH (07:34)
[2018-05-16] MEDS: LIDOCAINE 5% PATCH TOPICAL SCH (07:35)
[2018-05-16] MEDS: HYDROCHLOROTHIAZIDE 25 MG TAB PO SCH (07:35)
[2018-05-16 07:37] LABS: ALT 27 U/L (21-72); AST 26 U/L (17-59); Albumin 4.3 g/dL (3.5-5.0); Alkaline Phosphatase 53 U/L (38-126); Anion Gap 11 mmol/L; Blood Urea Nitrogen 29 mg/dL (9-20); Calcium 9.4 mg/dL (8.4-10.2); Carbon Dioxide 24 mmol/L (22-30); Chloride 101 mmol/L (98-107); Glucose 118 mg/dL (74-99); Potassium 4.3 mmol/L (3.5-5.1); Sodium 136 mmol/L (137-145); Total Bilirubin 0.7 mg/dL (0.2-1.3); Total Protein 7.3 g/dL (6.3-8.2)
[2018-05-16] MEDS: METHADONE 5 MG TAB PO SCH ×2 (07:44→20:41)
[2018-05-16] MEDS: IPRATROPIUM-ALBUTEROL 3 ML NEB INHALATION SCH ×4 (08:25→19:30)
[2018-05-16] MEDS: BUDESONIDE 0.5 MG/2 ML NEBU INHALATION SCH ×2 (08:25→19:30)
[2018-05-16 11:31] LABS: Glucose,Whole Blood 112 mg/dL (75-99)
--- NOTE | 2018-05-16 12:05 | P.PN ---
Subjective This is a pleasant 62 years old male with past medical history of asthma, coronary artery disease, heart failure with diastolic dysfunction, COPD, hypertension, liver disease, fall and right-sided pneumothorax, alcoholism. Alcoholic liver disease with abnormal LFTs, patient presents because of worsening dyspnea over to 3 days duration. Associated with worsening cough and yellow phlegm. Patient admits she still have the dog at home. He follow-up with his cafe or restaurant manager Dr. Garza. He missed his appointment last time and he states is scheduled for another recent soon. In the emergency room Sabina looks stable. BMP was unremarkable, LFTs within within normal limits. Troponins was negative. INR 1.1. CBC was unremarkable. EKG shows normal sinus rhythm at 97 with no significant T-wave abnormality area QTC 416. Chest x-ray shows thoracic compression fractures and all dried rib fracture. No acute lung disease as per radiology reports. EKG Sylvie juice including montelukast, Geodon, Pulmicort, insulin sliding scale , March, Solu-Medrol 60 mg IV every 6 hours, Xanax, hydrochlorothiazide 25 mg, Cardizem 180 mg daily, lidocaine patch, Narcan, Tylenol when necessary, 05/15/2018 pt still dyspneic , mild coughing , his right lower chest pain from rib fracture is improving , his RUQ pain resolved today mostly it was a referred pain from lower chest injury . pulmonary input is appreciated . influenza test is negative. Has leukocytosis of 15.1 K, mostly related to his steroids 05/16/2018 is still dyspneic although improving, mild scuffing. His right lower chest pain is significantly improved. Pulmonary input is appreciated. He still have leukocytosis at 14 K. Patient is asking to go home today however we checked his resting oxygen saturation and was 86 on room air. We going to keep the patient for another day with a breathing treatment as above Objective - Vital Signs Vital signs: Vital Signs Temp 98 F 05/16/18 05:00 Pulse 84 05/16/18 12:01 Resp 17 05/16/18 05:00 BP 144/68 05/16/18 05:00 Pulse Ox 86 L 05/16/18 10:54 Intake & Output 05/15/18 05/16/18 05/16/18 18:59 06:59 18:59 Intake Total 1520 Balance 1520 Weight 94 kg Intake: Oral 1520 Other: Voiding Method Toilet Toilet Urinal Urinal # Voids 1 1 - Exam GENERAL: The patient is alert and oriented x3, not in any acute distress. Well developed, well nourished. HEENT: Pupils are round and equally reacting to light. EOMI. No scleral icterus. No conjunctival pallor. Normocephalic, atraumatic. No pharyngeal erythema. No thyromegaly. CARDIOVASCULAR: S1 and S2 present. No murmurs, rubs, or gallops. -PULMONARY: Chest is clear to auscultation, no crackles. B/L scattered wheezing ABDOMEN: Soft, nontender, nondistended, normoactive bowel sounds. No palpable organomegaly. MUSCULOSKELETAL: No joint swelling or deformity. EXTREMITIES: No cyanosis, clubbing, or pedal edema. NEUROLOGICAL: Gross neurological examination did not reveal any focal deficits. SKIN: No rashes. - Labs CBC & Chem 7: 05/16/18 06:52 05/16/18 06:52 Labs: Abnormal Lab Results - Last 24 Hours (Table) 05/15/18 05/15/18 05/16/18 Range/Units 17:20 20:24 06:52 WBC 14.0 H (3.8-10.6) k/uL MCV 106.7 H (80.0-100.0) fL Neutrophils # 11.7 H (1.3-7.7) k/uL Sodium (137-145) mmol/L BUN (9-20) mg/dL Glucose (74-99) mg/dL POC Glucose (mg/dL) 154 H 123 H (75-99) mg/dL 05/16/18 05/16/18 05/16/18 Range/Units 06:52 07:21 11:29 WBC (3.8-10.6) k/uL MCV (80.0-100.0) fL Neutrophils # (1.3-7.7) k/uL Sodium 136 L (137-145) mmol/L BUN 29 H (9-20) mg/dL Glucose 118 H (74-99) mg/dL POC Glucose (mg/dL) 116 H 112 H (75-99) mg/dL Microbiology - Last 24 Hours (Table) 05/14/18 04:22 Blood Culture - Preliminary Blood No Growth after 48 hours Assessment and Plan Plan: Patient has a guardian. - COPD with acute exacerbation. Continue with steroids, breathing treatment, doxycycline. -Hypoxia at rest with 86% on room air, patient was on home oxygen previously about not anymore before coming to the hospital. Follow-up oxygen saturation -Hypertension, continue with same treatment. -Right side chest pain and tenderness, from old from fracture. Continue with pain management. -Right upper quadrant tenderness. LFTs within normal limits. Mostly referred pain from right rib fracture pain -Chronic diastolic CHF, not an active issue -Occasional drinking of alcohol. Has been drinking last 2 days but not everyday GI prophylaxis Pepcid DVT prophylaxis: Heparin PT/OT: Pending
--- NOTE | 2018-05-16 16:40 | P.PN ---
Subjective Progress Note Date: 05/16/18 Principal diagnosis: Acute COPD exacerbation, acute on chronic hypoxic respirator failure, hypertension hypertensive cardiovascular disease, right sided rib fracture with chronic thoracic wall pain, history of chronic alcohol consumption May 16 2018, patient seen eval examined during the rounds clinically doing slightly better cough congestion shortness present improved but is still get short of breath on minimal activity and exertion patient has intermittent desaturation, patient has been tolerating steroids antibiotics fairly well no obvious distress otherwise present labs reviewed medications reviewed Objective - Vital Signs Vital signs: Vital Signs Temp 97.5 F L 05/16/18 15:00 Pulse 84 05/16/18 15:35 Resp 16 05/16/18 15:35 BP 136/74 05/16/18 15:00 Pulse Ox 96 05/16/18 15:00 Intake & Output 05/15/18 05/16/18 05/16/18 18:59 06:59 18:59 Intake Total 1520 Balance 1520 Weight 94 kg Intake: Oral 1520 Other: Voiding Method Toilet Toilet Urinal Urinal # Voids 1 1 3 - Exam GENERAL: The patient is alert and oriented x3, not in any acute distress. Well developed, well nourished. HEENT: Pupils are round and equally reacting to light. EOMI. No scleral icterus. No conjunctival pallor. Normocephalic, atraumatic. No pharyngeal erythema. No thyromegaly. CARDIOVASCULAR: S1 and S2 present. No murmurs, rubs, or gallops. -PULMONARY: Chest is clear to auscultation, no crackles. B/L scattered wheezing ABDOMEN: Soft, nontender, nondistended, normoactive bowel sounds. No palpable organomegaly. MUSCULOSKELETAL: No joint swelling or deformity. EXTREMITIES: No cyanosis, clubbing, or pedal edema. NEUROLOGICAL: Gross neurological examination did not reveal any focal deficits. - Labs CBC & Chem 7: 05/16/18 06:52 05/16/18 06:52 Labs: Abnormal Lab Results - Last 24 Hours (Table) 05/15/18 05/15/18 05/16/18 Range/Units 17:20 20:24 06:52 WBC 14.0 H (3.8-10.6) k/uL MCV 106.7 H (80.0-100.0) fL Neutrophils # 11.7 H (1.3-7.7) k/uL Sodium (137-145) mmol/L BUN (9-20) mg/dL Glucose (74-99) mg/dL POC Glucose (mg/dL) 154 H 123 H (75-99) mg/dL 05/16/18 05/16/18 05/16/18 Range/Units 06:52 07:21 11:29 WBC (3.8-10.6) k/uL MCV (80.0-100.0) fL Neutrophils # (1.3-7.7) k/uL Sodium 136 L (137-145) mmol/L BUN 29 H (9-20) mg/dL Glucose 118 H (74-99) mg/dL POC Glucose (mg/dL) 116 H 112 H (75-99) mg/dL Microbiology - Last 24 Hours (Table) 05/14/18 04:22 Blood Culture - Preliminary Blood No Growth after 48 hours Assessment and Plan Assessment: Acute COPD exacerbation Acute on chronic hypoxic respiratory failure Attention hypertensive cardiovascular disease Chronic right-sided thoracic wall pain due to rib fractures Congestive heart failure related to chronic diastolic heart failure Plan: Increase activity as tolerated Continue steroids breathing treatments and antibiotics can be switched to oral if remains stable possible discharge in next 24-48 hours Time with Patient: Greater than 30
[2018-05-16 17:23] LABS: Glucose,Whole Blood 119 mg/dL (75-99)
[2018-05-16 20:21] LABS: Glucose,Whole Blood 109 mg/dL (75-99)
[2018-05-16] MEDS: MONTELUKAST 10 MG TAB PO SCH (20:41)
[2018-05-17 07:01] LABS: Basophils % (A) 0 %; Eosinophils % (A) 0 %; HCT 47.3 % (39.0-53.0); HGB 15.2 gm/dL (13.0-17.5); Lymphocytes # (A) 1.2 k/uL (1.0-4.8); Lymphocytes % (A) 12 %; MCH 33.3 pg (25.0-35.0); MCHC 32.1 g/dL (31.0-37.0); MCV 103.6 fL (80.0-100.0); Macrocytosis Slight; Mean Platelet Volume 7.3; Monocytes # (A) 0.6 k/uL (0-1.0); Monocytes % (A) 6 %; Neutrophils # (A) 8.1 k/uL (1.3-7.7); Neutrophils % (A) 81 %; Platelet Count 227 k/uL (150-450); RBC 4.57 m/uL (4.30-5.90); RDW 13.4 % (11.5-15.5); WBC 9.9 k/uL (3.8-10.6)
[2018-05-17 07:06] LABS: Glucose,Whole Blood 126 mg/dL (75-99)
[2018-05-17] MEDS: BUDESONIDE 0.5 MG/2 ML NEBU INHALATION SCH ×2 (07:09→19:07)
[2018-05-17] MEDS: IPRATROPIUM-ALBUTEROL 3 ML NEB INHALATION SCH ×4 (07:09→19:07)
[2018-05-17 07:12] LABS: Chloride 97 mmol/L (98-107); Glucose 119 mg/dL (74-99)
[2018-05-17 07:13] LABS: Anion Gap 9 mmol/L; Blood Urea Nitrogen 41 mg/dL (9-20); Calcium 9.4 mg/dL (8.4-10.2); Carbon Dioxide 31 mmol/L (22-30); Potassium 4.2 mmol/L (3.5-5.1); Sodium 137 mmol/L (137-145)
[2018-05-17] MEDS: INSULIN ASPART 100 UNIT/ML 1 ML 10 ML VIAL SQ SCH ×4 (07:30→21:17)
[2018-05-17] MEDS: FAMOTIDINE 20 MG TAB PO SCH ×2 (07:59→21:17)
[2018-05-17] MEDS: METHADONE 5 MG TAB PO SCH ×2 (07:59→21:16)
[2018-05-17] MEDS: DOXYCYCLINE 50 MG CAP PO SCH ×2 (07:59→21:16)
[2018-05-17] MEDS: HYDROCHLOROTHIAZIDE 25 MG TAB PO SCH (07:59)
[2018-05-17] MEDS: DILTIAZEM CD 180 MG CAP.ER.24H PO SCH (07:59)
[2018-05-17] MEDS: HEPARIN SODIUM,PORCINE 5,000 UNIT/ML 1 ML VIAL SQ SCH ×2 (07:59→21:17)
[2018-05-17] MEDS: ESCITALOPRAM 10 MG TAB PO SCH (07:59)
[2018-05-17] MEDS: LIDOCAINE 5% PATCH TOPICAL SCH (08:00)
[2018-05-17] MEDS: methylPREDNISolone SOD SUCCI 125 MG/2 ML VIAL IV SCH (09:27)
[2018-05-17 11:55] LABS: Glucose,Whole Blood 106 mg/dL (75-99)
[2018-05-17] MEDS: predniSONE 20 MG TAB PO SCH (13:01)
[2018-05-17] MEDS: MULTIVITAMINS, THERA 1 EACH TAB PO SCH (13:01)
[2018-05-17] MEDS: THIAMINE 100 MG TAB PO SCH ×2 (13:01→18:07)
[2018-05-17 16:27] LABS: Glucose,Whole Blood 117 mg/dL (75-99)
--- NOTE | 2018-05-17 19:34 | P.PN ---
Subjective Progress Note Date: 05/17/18 Principal diagnosis: Acute COPD exacerbation, acute on chronic hypoxic respirator failure, hypertension hypertensive cardiovascular disease, right sided rib fracture with chronic thoracic wall pain, history of chronic alcohol consumption 05/17/2018, patient seen eval reexamined during the rounds clinically doing better respiratory status improve patient is breathing more comfortably denies any chest pain which is to go home but appears that patient likely will be discharged tomorrow, patient is off of IV steroids on oral antibiotics tolerating very well May 16 2018, patient seen eval examined during the rounds clinically doing slightly better cough congestion shortness present improved but is still get short of breath on minimal activity and exertion patient has intermittent desaturation, patient has been tolerating steroids antibiotics fairly well no obvious distress otherwise present labs reviewed medications reviewed Objective - Vital Signs Vital signs: Vital Signs Temp 97.3 F L 05/17/18 16:03 Pulse 84 05/17/18 19:25 Resp 16 05/17/18 16:03 BP 149/74 05/17/18 16:03 Pulse Ox 90 L 05/17/18 16:03 Intake & Output 05/17/18 05/17/18 05/18/18 06:59 18:59 06:59 Intake Total 400 360 Balance 400 360 Intake: Oral 400 360 Other: Voiding Method Toilet Urinal # Voids 1 3 - Exam GENERAL: The patient is alert and oriented x3, not in any acute distress. Well developed, well nourished. HEENT: Pupils are round and equally reacting to light. EOMI. No scleral icterus. No conjunctival pallor. Normocephalic, atraumatic. No pharyngeal erythema. No thyromegaly. CARDIOVASCULAR: S1 and S2 present. No murmurs, rubs, or gallops. -PULMONARY: Chest is clear to auscultation, no crackles. B/L scattered wheezing ABDOMEN: Soft, nontender, nondistended, normoactive bowel sounds. No palpable organomegaly. MUSCULOSKELETAL: No joint swelling or deformity. EXTREMITIES: No cyanosis, clubbing, or pedal edema. NEUROLOGICAL: Gross neurological examination did not reveal any focal deficits. - Labs CBC & Chem 7: 05/17/18 06:28 05/17/18 06:28 Labs: Abnormal Lab Results - Last 24 Hours (Table) 05/16/18 05/17/18 05/17/18 Range/Units 20:14 06:28 06:28 MCV 103.6 H (80.0-100.0) fL Neutrophils # 8.1 H (1.3-7.7) k/uL Chloride 97 L (98-107) mmol/L Carbon Dioxide 31 H (22-30) mmol/L BUN 41 H (9-20) mg/dL Glucose 119 H (74-99) mg/dL POC Glucose (mg/dL) 109 H (75-99) mg/dL 05/17/18 05/17/18 05/17/18 Range/Units 07:04 11:55 16:25 MCV (80.0-100.0) fL Neutrophils # (1.3-7.7) k/uL Chloride (98-107) mmol/L Carbon Dioxide (22-30) mmol/L BUN (9-20) mg/dL Glucose (74-99) mg/dL POC Glucose (mg/dL) 126 H 106 H 117 H (75-99) mg/dL Microbiology - Last 24 Hours (Table) 05/14/18 04:22 Blood Culture - Preliminary Blood No Growth after 72 hours Assessment and Plan Assessment: Acute COPD exacerbation Acute on chronic hypoxic respiratory failure Attention hypertensive cardiovascular disease Chronic right-sided thoracic wall pain due to rib fractures Congestive heart failure related to chronic diastolic heart failure Plan: Increase activity as tolerated Continue steroids breathing treatments and antibiotics can be switched to oral if remains stable possible discharge in next 24-48 hours Time with Patient: Greater than 30
[2018-05-17 20:11] LABS: Glucose,Whole Blood 127 mg/dL (75-99)
[2018-05-17] MEDS: MONTELUKAST 10 MG TAB PO SCH (21:16)
--- NOTE | 2018-05-17 22:51 | P.PN ---
Subjective This is a pleasant 62 years old male with past medical history of asthma, coronary artery disease, heart failure with diastolic dysfunction, COPD, hypertension, liver disease, fall and right-sided pneumothorax, alcoholism. Alcoholic liver disease with abnormal LFTs, patient presents because of worsening dyspnea over to 3 days duration. Associated with worsening cough and yellow phlegm. Patient admits she still have the dog at home. He follow-up with his oceanographic meteorologist Dr. Garza. He missed his appointment last time and he states is scheduled for another recent soon. In the emergency room Vitas looks stable. BMP was unremarkable, LFTs within within normal limits. Troponins was negative. INR 1.1. CBC was unremarkable. EKG shows normal sinus rhythm at 97 with no significant T-wave abnormality area QTC 416. Chest x-ray shows thoracic compression fractures and all dried rib fracture. No acute lung disease as per radiology reports. EKG Sylvie juice including montelukast, Geodon, Pulmicort, insulin sliding scale , March, Solu-Medrol 60 mg IV every 6 hours, Xanax, hydrochlorothiazide 25 mg, Cardizem 180 mg daily, lidocaine patch, Narcan, Tylenol when necessary, 05/15/2018 pt still dyspneic , mild coughing , his right lower chest pain from rib fracture is improving , his RUQ pain resolved today mostly it was a referred pain from lower chest injury . pulmonary input is appreciated . influenza test is negative. Has leukocytosis of 15.1 K, mostly related to his steroids 05/16/2018 is still dyspneic although improving, mild scuffing. His right lower chest pain is significantly improved. Pulmonary input is appreciated. He still have leukocytosis at 14 K. Patient is asking to go home today however we checked his resting oxygen saturation and was 86 on room air. We going to keep the patient for another day with a breathing treatment as above 05/17/2018 pt dyspnea is improving , pt is still hypoxic and needs breathing treatment and iv steroids , pulmonary team are following the case Objective - Vital Signs Vital signs: Vital Signs Temp 97.3 F L 05/17/18 16:03 Pulse 84 05/17/18 19:25 Resp 16 05/17/18 16:03 BP 149/74 05/17/18 16:03 Pulse Ox 90 L 05/17/18 16:03 Intake & Output 05/17/18 05/17/18 05/18/18 06:59 18:59 06:59 Intake Total 400 360 Balance 400 360 Intake: Oral 400 360 Other: Voiding Method Toilet Urinal # Voids 1 3 1 - Exam GENERAL: The patient is alert and oriented x3, not in any acute distress. Well developed, well nourished. HEENT: Pupils are round and equally reacting to light. EOMI. No scleral icterus. No conjunctival pallor. Normocephalic, atraumatic. No pharyngeal erythema. No thyromegaly. CARDIOVASCULAR: S1 and S2 present. No murmurs, rubs, or gallops. -PULMONARY: Chest is clear to auscultation, no crackles. B/L scattered wheezing ABDOMEN: Soft, nontender, nondistended, normoactive bowel sounds. No palpable organomegaly. MUSCULOSKELETAL: No joint swelling or deformity. EXTREMITIES: No cyanosis, clubbing, or pedal edema. NEUROLOGICAL: Gross neurological examination did not reveal any focal deficits. SKIN: No rashes. - Labs CBC & Chem 7: 05/17/18 06:28 05/17/18 06:28 Labs: Abnormal Lab Results - Last 24 Hours (Table) 05/17/18 05/17/18 05/17/18 Range/Units 06:28 06:28 07:04 MCV 103.6 H (80.0-100.0) fL Neutrophils # 8.1 H (1.3-7.7) k/uL Chloride 97 L (98-107) mmol/L Carbon Dioxide 31 H (22-30) mmol/L BUN 41 H (9-20) mg/dL Glucose 119 H (74-99) mg/dL POC Glucose (mg/dL) 126 H (75-99) mg/dL 05/17/18 05/17/18 05/17/18 Range/Units 11:55 16:25 20:09 MCV (80.0-100.0) fL Neutrophils # (1.3-7.7) k/uL Chloride (98-107) mmol/L Carbon Dioxide (22-30) mmol/L BUN (9-20) mg/dL Glucose (74-99) mg/dL POC Glucose (mg/dL) 106 H 117 H 127 H (75-99) mg/dL Microbiology - Last 24 Hours (Table) 08/03/18 04:22 Blood Culture - Preliminary Blood No Growth after 72 hours Assessment and Plan Plan: Patient has a guardian. - COPD with acute exacerbation. Continue with steroids, breathing treatment, doxycycline. -Hypoxia at rest with 86% on room air, patient was on home oxygen previously about not anymore before coming to the hospital. Follow-up oxygen saturation -Hypertension, continue with same treatment. -Right side chest pain and tenderness, from old from fracture. Continue with pain management. -Right upper quadrant tenderness. LFTs within normal limits. Mostly referred pain from right rib fracture pain -Chronic diastolic CHF, not an active issue -Occasional drinking of alcohol. Has been drinking last 2 days but not everyday GI prophylaxis Pepcid DVT prophylaxis: Heparin PT/OT: home independent
[2018-05-18 06:45] VITALS: BP 139/82; RESP 18; TEMP 97.8
[2018-05-18 06:51] LABS: Glucose,Whole Blood 101 mg/dL (75-99)
[2018-05-18] MEDS: BUDESONIDE 0.5 MG/2 ML NEBU INHALATION SCH (07:09)
[2018-05-18] MEDS: IPRATROPIUM-ALBUTEROL 3 ML NEB INHALATION SCH ×3 (07:09→15:27)
[2018-05-18] MEDS: INSULIN ASPART 100 UNIT/ML 1 ML 10 ML VIAL SQ SCH ×2 (07:37→11:42)
[2018-05-18 07:48] LABS: Anion Gap 11 mmol/L; Blood Urea Nitrogen 42 mg/dL (9-20); Calcium 9.6 mg/dL (8.4-10.2); Carbon Dioxide 31 mmol/L (22-30); Chloride 95 mmol/L (98-107); Glucose 102 mg/dL (74-99); Sodium 137 mmol/L (137-145)
[2018-05-18] MEDS: HYDROCHLOROTHIAZIDE 25 MG TAB PO SCH (09:10)
[2018-05-18] MEDS: DOXYCYCLINE 50 MG CAP PO SCH (09:10)
[2018-05-18] MEDS: ESCITALOPRAM 10 MG TAB PO SCH (09:10)
[2018-05-18] MEDS: FAMOTIDINE 20 MG TAB PO SCH (09:10)
[2018-05-18] MEDS: HEPARIN SODIUM,PORCINE 5,000 UNIT/ML 1 ML VIAL SQ SCH (09:10)
[2018-05-18] MEDS: DILTIAZEM CD 180 MG CAP.ER.24H PO SCH (09:10)
[2018-05-18] MEDS: LIDOCAINE 5% PATCH TOPICAL SCH (09:11)
[2018-05-18] MEDS: predniSONE 20 MG TAB PO SCH (09:12)
[2018-05-18] MEDS: METHADONE 5 MG TAB PO SCH (09:15)
[2018-05-18 11:33] LABS: Glucose,Whole Blood 119 mg/dL (75-99)
[2018-05-18] MEDS: THIAMINE 100 MG TAB PO SCH (12:42)
[2018-05-18] MEDS: MULTIVITAMINS, THERA 1 EACH TAB PO SCH (12:42)
[2018-05-18 15:32] VITALS: PULSE 88
--- NOTE | 2018-05-18 18:03 | DS ---
DISCHARGE SUMMARY FINAL DIAGNOSES: 1. Chronic obstructive pulmonary disease acute exacerbation with acute purulent tracheobronchitis. 2. Hypertension. 3. Right-sided chest pain, possibly musculoskeletal from old rib fracture. 4. Right upper quadrant abdominal tenderness. 5. Chronic diastolic congestive heart failure. DISCHARGED DISPOSITION: The patient will be discharged in stable condition with a guarded prognosis. HISTORY OF PRESENT ILLNESS: This 62-year-old gentleman with a past medical history of multiple medical problems was admitted with COPD acute exacerbation, treated with bronchodilators, steroids. The patient improved significantly. Dr. Garza saw the patient. EXAM: Vitals are stable. CARDIOVASCULAR: S1, S2 muffled. ABDOMEN: Soft. NERVOUS SYSTEM: Nonfocal. DISCHARGE ADVICE AND MEDICATIONS: 1. Diet is cardiac. 2. Activity limited until followup. 3. Follow up with Dr. Garza as mentioned. MEDICATIONS: Are as follows: 1. Symbicort 12.5 two puffs b.i.d. 2. Cardizem CD 180 mg p.o. daily. 3. Lexapro 10 mg p.o. daily. 4. HydroDIURIL 25 mg p.o. daily. 5. DuoNeb q.i.d. and p.r.n. 6. methadone 20 mg p.o. b.i.d. 7. Vibramycin 50 mg p.o. b.i.d. for 2 more days. 8. Pepcid 20 mg p.o. b.i.d. 9. Singulair 10 mg p.o. q.h.s. 10.Multivitamins 1 p.o. daily. 11.Prednisone 40 mg p.o. daily for 3 days, 30 for 3 days, 20 for 3 days, 10 for 3 days and discontinue. 12.Thiamine 100 mg p.o. daily. MMODL / IJN: [id number] / MTDD
--- NOTE | 2018-05-18 18:31 | P.PN ---
Subjective Progress Note Date: 05/18/18 Principal diagnosis: Acute COPD exacerbation, acute on chronic hypoxic respirator failure, hypertension hypertensive cardiovascular disease, right sided rib fracture with chronic thoracic wall pain, history of chronic alcohol consumption 05/18/2018, patient seen eval examined during the rounds clinically patient has been doing well awake and alert breathing completely denies any chest pain off of IV steroids breathing comfortably tolerating bronchodilator value well patient expresses desire to go home discussed with primary service overall from pulmonary standpoint can be discharged to follow-up in outpatient setting 05/17/2018, patient seen eval reexamined during the rounds clinically doing better respiratory status improve patient is breathing more comfortably denies any chest pain which is to go home but appears that patient likely will be discharged tomorrow, patient is off of IV steroids on oral antibiotics tolerating very well May 16 2018, patient seen eval examined during the rounds clinically doing slightly better cough congestion shortness present improved but is still get short of breath on minimal activity and exertion patient has intermittent desaturation, patient has been tolerating steroids antibiotics fairly well no obvious distress otherwise present labs reviewed medications reviewed Objective - Vital Signs Vital signs: Vital Signs Temp 97.8 F 05/18/18 06:44 Pulse 88 05/18/18 15:41 Resp 18 05/18/18 06:44 BP 139/82 05/18/18 06:44 Pulse Ox 91 L 05/18/18 08:43 Intake & Output 05/17/18 05/18/18 05/18/18 18:59 06:59 18:59 Intake Total 360 Balance 360 Weight 95 kg Intake: Oral 360 Other: Voiding Method Toilet Urinal # Voids 3 2 4 - Exam GENERAL: The patient is alert and oriented x3, not in any acute distress. Well developed, well nourished. HEENT: Pupils are round and equally reacting to light. EOMI. No scleral icterus. No conjunctival pallor. Normocephalic, atraumatic. No pharyngeal erythema. No thyromegaly. CARDIOVASCULAR: S1 and S2 present. No murmurs, rubs, or gallops. -PULMONARY: Chest is clear to auscultation, no crackles. B/L scattered wheezing ABDOMEN: Soft, nontender, nondistended, normoactive bowel sounds. No palpable organomegaly. MUSCULOSKELETAL: No joint swelling or deformity. EXTREMITIES: No cyanosis, clubbing, or pedal edema. NEUROLOGICAL: Gross neurological examination did not reveal any focal deficits. - Labs CBC & Chem 7: 05/17/18 06:28 05/18/18 06:49 Labs: Abnormal Lab Results - Last 24 Hours (Table) 05/17/18 05/18/18 05/18/18 Range/Units 20:09 06:49 06:50 Chloride 95 L (98-107) mmol/L Carbon Dioxide 31 H (22-30) mmol/L BUN 42 H (9-20) mg/dL Glucose 102 H (74-99) mg/dL POC Glucose (mg/dL) 127 H 101 H (75-99) mg/dL 05/18/18 Range/Units 11:32 Chloride (98-107) mmol/L Carbon Dioxide (22-30) mmol/L BUN (9-20) mg/dL Glucose (74-99) mg/dL POC Glucose (mg/dL) 119 H (75-99) mg/dL Microbiology - Last 24 Hours (Table) 05/14/18 04:22 Blood Culture - Preliminary Blood No Growth after 96 hours Assessment and Plan Assessment: Acute COPD exacerbation Acute on chronic hypoxic respiratory failure Attention hypertensive cardiovascular disease Chronic right-sided thoracic wall pain due to rib fractures Congestive heart failure related to chronic diastolic heart failure Plan: Increase activity as tolerated Continue steroids breathing treatments and an increase activity as tolerated patient can be discharged home and follow-up in outpatient setting Time with Patient: Greater than 30
== END 2018-05-18 16:30 | disposition home or self-care (01) | DRG 190 ==
LOC: EC 04:06 → 5MS5E 08:17
PROVIDERS: ADMIT Hospitalist; ATTEND Hospitalist
DX: J44.0 Chronic obstructive pulmonary disease with (acute) lower respiratory infection (principal); J96.21 Acute and chronic respiratory failure with hypoxia; I50.32 Chronic diastolic (congestive) heart failure; J20.9 Acute bronchitis, unspecified; J44.1 Chronic obstructive pulmonary disease with (acute) exacerbation; Z87.891 Personal history of nicotine dependence; D72.829 Elevated white blood cell count, unspecified; T38.0X5A Adverse effect of glucocorticoids and synthetic analogues, initial encounter; F10.20 Alcohol dependence, uncomplicated; F43.10 Post-traumatic stress disorder, unspecified; G89.4 Chronic pain syndrome; I11.0 Hypertensive heart disease with heart failure; I25.10 Atherosclerotic heart disease of native coronary artery without angina pectoris; K70.9 Alcoholic liver disease, unspecified; S22.31XS Fracture of one rib, right side, sequela; W19.XXXS Unspecified fall, sequela; Z79.51 Long term (current) use of inhaled steroids; Z79.82 Long term (current) use of aspirin; Z79.899 Other long term (current) drug therapy; Z82.49 Family history of ischemic heart disease and other diseases of the circulatory system; Z80.8 Family history of malignant neoplasm of other organs or systems; Z87.01 Personal history of pneumonia (recurrent); Z86.14 Personal history of Methicillin resistant Staphylococcus aureus infection; F11.90 Opioid use, unspecified, uncomplicated; Z79.84 Long term (current) use of oral hypoglycemic drugs; Z71.41 Alcohol abuse counseling and surveillance of alcoholic
CPT/HCPCS: 36415; 71046; 80048; 80053; 82550; 82553; 83036; 83735; 84484; 85025; 85610; 85730; 87040; 87502; 93005; 94640; 94760; 96374; 99285

== ENCOUNTER 2018-10-16 09:35 | Emergency (ER) | payer OTHER ==
[2018-10-16 09:48] VITALS: TEMP 98.2
[2018-10-16] MEDS ORDERED: IPRATROPIUM-ALBUTEROL 3 ML NEB INHALATION STA (09:50)
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
--- NOTE | 2018-10-16 10:51 | XR ---
EXAMINATION TYPE: XR chest 2V DATE OF EXAM: 10/16/2018 HISTORY: difficulty breathing. REFERENCE: Previous study dated 05/14/2018. FINDINGS: The heart is enlarged. There is mild vascular congestion and subtle interstitial change. No te is made of old right-sided rib fractures. Pleural spaces are clear. IMPRESSION: SUBTLE CHANGES OF CONGESTIVE HEART FAILURE.
[2018-10-16 11:48] LABS: Basophils # (A) 0.1 k/uL (0-0.2); Basophils % (A) 1 %; Eosinophils # (A) 0.3 k/uL (0-0.7); Eosinophils % (A) 5 %; HCT 49.7 % (39.0-53.0); HGB 15.7 gm/dL (13.0-17.5); Lymphocytes # (A) 1.2 k/uL (1.0-4.8); Lymphocytes % (A) 17 %; MCH 34.1 pg (25.0-35.0); MCHC 31.6 g/dL (31.0-37.0); MCV 107.9 fL (80.0-100.0); Macrocytosis Moderate; Mean Platelet Volume 7.4; Monocytes # (A) 0.3 k/uL (0-1.0); Monocytes % (A) 4 %; Neutrophils % (A) 71 %; Platelet Count 111 k/uL (150-450); RBC 4.61 m/uL (4.30-5.90); RDW 13.9 % (11.5-15.5)
[2018-10-16 12:11] LABS: Albumin 3.9 g/dL (3.5-5.0); Anion Gap 7 mmol/L; Blood Urea Nitrogen 12 mg/dL (9-20); Calcium 9.2 mg/dL (8.4-10.2); Carbon Dioxide 28 mmol/L (22-30); Chloride 106 mmol/L (98-107); Glucose 120 mg/dL (74-99); Sodium 141 mmol/L (137-145); Total Bilirubin 0.7 mg/dL (0.2-1.3); Total Protein 7.1 g/dL (6.3-8.2)
[2018-10-16 12:13] LABS: ALT 71 U/L (21-72); AST 71 U/L (17-59); Alkaline Phosphatase 72 U/L (38-126); Magnesium 1.7 mg/dL (1.6-2.3); Potassium 4.9 mmol/L (3.5-5.1)
[2018-10-16 13:02] VITALS: BP 139/78; PULSE 88; RESP 18
== END 2018-10-16 13:15 | disposition home or self-care (01) ==
LOC: EC 09:35
DX: J44.1 Chronic obstructive pulmonary disease with (acute) exacerbation (principal); I11.0 Hypertensive heart disease with heart failure; I50.30 Unspecified diastolic (congestive) heart failure; F41.9 Anxiety disorder, unspecified; F43.10 Post-traumatic stress disorder, unspecified; Z86.14 Personal history of Methicillin resistant Staphylococcus aureus infection; Z87.891 Personal history of nicotine dependence; Z87.81 Personal history of (healed) traumatic fracture; Z82.49 Family history of ischemic heart disease and other diseases of the circulatory system; Z79.51 Long term (current) use of inhaled steroids; Z79.891 Long term (current) use of opiate analgesic; Z79.899 Other long term (current) drug therapy; Z91.048 Other nonmedicinal substance allergy status
CPT/HCPCS: 36415; 71046; 80053; 83735; 83880; 84484; 85025; 93005; 94640; 99285

== ENCOUNTER 2021-11-20 14:03 | Emergency (ER) | payer MEDICARE, OTHER ==
[2021-11-20] MEDS ORDERED: SODIUM CHLORIDE 0.9% 500 ML 500 ML IV STA (14:59)
[2021-11-20] MEDS ORDERED: SODIUM CHLORIDE 0.9% 1,000 ML IV STA (15:24)
[2021-11-20] MEDS ORDERED: ONDANSETRON 4 MG/2 ML VIAL IVP STA ×2 (15:24→21:19)
[2021-11-20] MEDS ORDERED: fentaNYL (PF) 50 MCG/ML 2 ML AMP IVP STA (15:25)
[2021-11-20 15:29] LABS: Basophils # (A) 0.1 k/uL (0-0.2); Basophils % (A) 0 %; Eosinophils # (A) 0.1 k/uL (0-0.7); Eosinophils % (A) 0 %; HCT 35.7 % (39.0-53.0); HGB 12.6 gm/dL (13.0-17.5); Lymphocytes # (A) 1.4 k/uL (1.0-4.8); Lymphocytes % (A) 6 %; MCH 39.4 pg (25.0-35.0); MCHC 35.3 g/dL (31.0-37.0); MCV 111.9 fL (80.0-100.0); Macrocytosis Marked; Mean Platelet Volume 9.5; Monocytes # (A) 0.6 k/uL (0-1.0); Monocytes % (A) 3 %; Neutrophils # (A) 19.5 k/uL (1.3-7.7); Neutrophils % (A) 90 %; Platelet Count 291 k/uL (150-450); RBC 3.19 m/uL (4.30-5.90); RDW 15.1 % (11.5-15.5); WBC 21.6 k/uL (3.8-10.6)
[2021-11-20 16:01] LABS: Lactic Acid, Venous 2.9 mmol/L (0.7-2.0)
[2021-11-20 16:02] LABS: INR 4.6 (<1.2); Prothrombin Time 46.5 sec (9.0-12.0)
[2021-11-20 16:03] LABS: Partial Thromboplastin Time 64.9 sec (22.0-30.0)
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
--- NOTE | 2021-11-20 17:07 | XR ---
EXAMINATION TYPE: XR chest 2V DATE OF EXAM: 11/20/2021 4:54 PM COMPARISON: 10/16/2018 TECHNIQUE: Frontal view of the chest. CLINICAL INDICATION:Male, 66 years old with history of difficulty breathing; FINDINGS: Lungs/Pleura: There is no evidence of focal consolidation, or pneumothorax. Bilateral blunting of th e costophrenic angles. Pulmonary vascularity: Pulmonary vascular congestion. Heart/mediastinum: Cardiomediastinal silhouette is prominent in size. Musculoskeletal: No acute osseous pathology. IMPRESSION: mild pulmonary vascular congestion with bilateral pleural effusions suspected. Correlate with BNP for congestive heart failure.
[2021-11-20 17:54] LABS: Albumin 2.5 g/dL (3.5-5.0); Bilirubin, Conjugated 12.9 mg/dL (0.0-0.3); Bilirubin, Delta 4.4 mg/dL (0.0-0.2); Bilirubin,Unconjugated 3.3 mg/dL (0.0-1.1); Calcium 8.2 mg/dL (8.4-10.2); Magnesium 1.8 mg/dL (1.6-2.3)
[2021-11-20 18:01] LABS: Total Bilirubin 20.6 mg/dL (0.2-1.3)
[2021-11-20 18:03] LABS: Total Protein 6.3 g/dL (6.3-8.2)
[2021-11-20] MEDS ORDERED: POTASSIUM CHLORIDE ER 20 MEQ TAB.ER PO STA (18:18)
[2021-11-20] MEDS ORDERED: MAGNESIUM SULFATE-D5W PMX 1 GM in DEXTROSE/WATER 1 100ML.BAG IVPB ONE (18:19)
--- NOTE | 2021-11-20 19:37 | CT ---
EXAMINATION TYPE: CT abdomen pelvis wo con CT DLP: 722.7 mGycm, Automated exposure control for dose reduction was used. DATE OF EXAM: 11/20/2021 6:55 PM COMPARISON: CT abdomen pelvis most recent from 02/10/2018. CLINICAL INDICATION:Male, 66 years old with history of abd pain; Abdominal pain, jaundice. TECHNIQUE: Standard CT of the abdomen and pelvis without IV or oral contrast. Lack of IV or oral co ntrast limits evaluation of solid and hollow organ viscera. Coronal and sagittal reformats were perfo rmed. FINDINGS: LOWER CHEST: Right pleural effusion with associated subsegmental atelectasis. ABDOMEN LIVER: Cirrhosis with nodular contour. Diffusely hypoattenuating parenchyma. GALLBLADDER AND BILE DUCTS: High density sludge is seen within the gallbladder lumen. No ductal dilat ation is present. PANCREAS: There is a fullness to the body and tail of the pancreas with increased pancreatic duct dil atation. These are new findings from 2018. The uncinate process, head and neck are relatively atrophi c. Pancreatic tail lesion measures 61 x 31 mm within the body with more cystic changes which could be a dilated duct measuring 41 x 24 mm SPLEEN:Not enlarged. ADRENAL GLANDS: Unremarkable. KIDNEYS AND URETERS: No evidence of hydronephrosis or renal calculus. The ureters are unremarkable. PELVIS BLADDER: Unremarkable REPRODUCTIVE: Unremarkable. ABDOMEN & PELVIS STOMACH AND BOWEL: No evidence of bowel obstruction. PERITONEUM: No evidence of pneumoperitoneum. There is free fluid throughout the abdomen. VASCULATURE: Mild atherosclerotic calcifications are present throughout the abdominal aorta and its b ranches. MUSCULOSKELETAL: Mild disc degeneration changes are present throughout the thoracolumbar spine. Multi ple right-sided posterior remote rib fractures. LYMPH NODES: No gross evidence for lymphadenopathy. SOFT TISSUE/ABDOMINAL WALL: Unremarkable Findings communicated to Dr. Inge Raya DO on 11/20/2021 7:[address] Srinivas Viera. IMPRESSION: 1. Soft tissue fullness of the pancreatic body and tail concerning for underlying neoplasm. Further w orkup with MRI pancreatic mass protocol with MRCP should be performed to rule out underlying lesion. This is new from 2018. 2. Hepatic cirrhosis with steatosis and ascites. 3. High density billary sludge. 4. Small right pleural effusion.
[2021-11-20] MEDS: POTASSIUM CHLORIDE 20 MEQ in WATER FOR INJECTION 1 100ML.BAG IVPB STA ×2 (20:07→20:57)
[2021-11-20] MEDS ORDERED: NOREPINEPHRINE 32 MG in SODIUM CHLORIDE 0.9% 218 ML IV ONE (20:45)
[2021-11-20 20:48] VITALS: RESP 18
[2021-11-20] MEDS ORDERED: PHYTONADIONE ORAL 5 MG/5 ML ORAL.SYRG PO STA (20:48)
--- NOTE | 2021-11-20 21:10 | XR ---
EXAMINATION TYPE: XR chest 1V confirm line [facility] DATE OF EXAM: 11/20/2021 8:59 PM COMPARISON:Chest radiographs from 11/20/2021 TECHNIQUE: Frontal view of the chest. CLINICAL INDICATION:Male, 66 years old with history of line placement; FINDINGS: Lungs/Pleura: Right pleural effusion. There is associated subsegmental atelectasis. No consolidation. No evidence of pneumothorax. Pulmonary vascularity: Unremarkable. Heart/mediastinum: Cardiomediastinal silhouette is unremarkable. Musculoskeletal: No acute osseous pathology. Other findings: None Lines/Tubes: Right internal jugular central venous catheter with distal tip at the superior vena cava. IMPRESSION: 1. Right central venous catheter with tip in appropriate position. 2. Moderate right pleural effusion.
[2021-11-20] MEDS ORDERED: PIPERACILLIN-TAZOBACTAM 3.375 GM in SODIUM CHLORIDE 0.9% 100 ML IVPB STA (21:52)
[2021-11-20 22:39] VITALS: BP 91/45; PULSE 87; TEMP 98
== END 2021-11-20 22:51 | disposition other institution (70) ==
LOC: EC 14:03
DX: R11.2 Nausea with vomiting, unspecified (principal); R18.8 Other ascites; R74.01 Elevation of levels of liver transaminase levels; K72.90 Hepatic failure, unspecified without coma; N17.9 Acute kidney failure, unspecified; I95.9 Hypotension, unspecified; D72.829 Elevated white blood cell count, unspecified; F10.21 Alcohol dependence, in remission; I11.0 Hypertensive heart disease with heart failure; I50.9 Heart failure, unspecified; J44.9 Chronic obstructive pulmonary disease, unspecified; F41.9 Anxiety disorder, unspecified; F43.10 Post-traumatic stress disorder, unspecified; Y90.9 Presence of alcohol in blood, level not specified; Z20.822 Contact with and (suspected) exposure to COVID-19
CPT/HCPCS: 99291; 96365; 96366; 96367; 96375 ×3; 96376; 96361 ×4; 36556; 36415; 93005; 83880; 80053; 82140; 82150; 82248; 83605; 83690; 83735; 84484; 85025; 85610; 85730; 87040; 87635; 71046; 74176; J2543; J3480; J2405; J3010; J3475